=== PATIENT | male | born 1955 | race Caucasian/White ===

== ENCOUNTER 2019-12-26 05:36 | Outpatient (CLI) | payer MEDICARE, MEDICAID ==
[~2019-12-26] VITALS: Ht 167 cm; Wt 78.6 kg
[~2019-12-26 05:36] MED LIST: GUAN2TAB12 PO; HYDR50CA PO; PROP10TA8 PO; RISP1TAB19 PO
[2019-12-26] MEDS ORDERED: RISP0.5T3 PO (11:23)
[2019-12-26] MEDS ORDERED: HYDR-3781 PO (11:23)
[2019-12-26] MEDS ORDERED: LISI40TA PO (11:23)
[2019-12-26] MEDS ORDERED: CARV12.53 PO (11:23)
[2019-12-26] MEDS ORDERED: ATOR20TA66 PO (11:23)
[2019-12-26] MEDS ORDERED: AMLO5TAB9 PO (11:23)
[2019-12-26] MEDS ORDERED: TRAV5DRO OP (11:23)
== END 2019-12-26 14:14 | disposition home or self-care (01) ==
LOC: PREOP 05:36
PROVIDERS: ATTEND Surgery
DX: Z01.818 Encounter for other preprocedural examination (principal)

== ENCOUNTER 2020-01-02 09:23 | Day surgery (SDC) | payer MEDICARE, MEDICAID ==
[~2020-01-02] VITALS: Ht 167 cm; Wt 78.6 kg
[2020-01-02] VITALS (7 sets, daily range): BP systolic 89–131; BP diastolic 50–80
[~2020-01-02 09:23] MED LIST changes: +AMLO5TAB9 PO; +ATOR20TA66 PO; +CARV12.53 PO; +HYDR-3781 PO; +LISI40TA PO; +RISP0.5T3 PO; +TRAV5DRO OP
[2020-01-02] MEDS ORDERED: LACTATED RINGERS 1,000 ML IV ONE (09:24)
[2020-01-02] MEDS ORDERED: LACTATED RINGERS 1,000 ML IV STA (09:37)
--- NOTE | 2020-01-02 09:54 | Progress Note-Pre Operative ---
Pre-Operative Progress Note H&P Reviewed The H&P was reviewed, patient examined and no changes noted. Date Seen by Provider: Jan 02, 2020 Time Seen by Provider: 09:53 Date H&P Reviewed: Jan 02, 2020 Time H&P Reviewed: 09:53 Pre-Operative Diagnosis: History of colon polyps SANTI HERNÁNDEZ DO Jan 02, 2020 09:54
[2020-01-02] MEDS ORDERED: MIDAZOLAM 2 MG/2 ML (VERSED) VIAL ONE (10:00)
[2020-01-02] MEDS ORDERED: PROPOFOL INJECTION 50 ML IV ONE (10:00)
--- NOTE | 2020-01-02 10:49 | Progress Note-Post Operative ---
Post-Operative Progess Note Surgeon (s)/Glass Beveler (s) Surgeon SANTI HERNÁNDEZ DO Glass Beveler: NA Pre-Operative Diagnosis History of colon polyps Post-Operative Diagnosis Cecal mass. Sigmoid and Rectal Polyps Procedure & Operative Findings Date of Procedure 01/02/20 Procedure Performed/Findings Colonoscopy with cold and hot biopsy polypectomy Anesthesia Type per SPECIAL DELIVERY MESSENGER Estimated Blood Loss Estimated blood loss (mL): None Specimens/Packing Specimens Removed Cold biopsies of Cecal Mass x4 .Hot Biopsies of sigmoid and rectal polyps SANTI HERNÁNDEZ DO Jan 02, 2020 10:49
--- NOTE | 2020-01-02 10:55 | Discharge Inst-Simple/Standard ---
Discharge Inst-Standard Patient Instructions/Follow Up Plan of Care/Instructions/FU: Patient will need right colon rescection. Follow up [facility] 2 weeks. Activity as Tolerated: Yes Discharge Diet: Regular Diet SANTI HERNÁNDEZ DO Jan 02, 2020 10:55
--- NOTE | 2020-01-02 15:28 | OPERATIVE REPORT ---
DATE OF SERVICE: 01/02/2020 PREOPERATIVE DIAGNOSIS: History of colon polyps. POSTOPERATIVE DIAGNOSIS: Cecal mass, sigmoid and rectal polyp. PROCEDURE: Colonoscopy with cold biopsies of cecal mass and hot biopsy polypectomy x2. SURGEON: Santi Chang DO ANESTHESIA: Per INTERNAL MEDICINE PHYSICIAN ASSISTANT. ESTIMATED BLOOD LOSS: None. COMPLICATIONS: None. INDICATIONS: The patient is a 64-year-old male with history of colon polyps. He understands risks and benefits and wishes to proceed. Consent was signed and on the chart. DESCRIPTION OF PROCEDURE: The patient was taken to endoscopy suite, placed in left lateral recumbent position. Timeout was performed. Digital rectal exam was performed. There were no palpable polyps, masses or ulcerations. Scope was inserted in the rectum and advanced all the way to cecum with minimal difficulty. Prep was adequate. Scope was slowly retracted back, large cecal mass present. Multiple cold biopsies were obtained. Scope was then slowly retracted back. There were no other polyps, masses or ulcerations within the ascending, transverse and descending colon and sigmoid colon. Polyp was present, which hot biopsy polypectomy was performed. Scope was then continuously retracted back into the rectum where another small polyp was present, which hot biopsy polypectomy was performed. Scope was then continuously retracted back and retroflexed noting no other pathology. Scope was returned to its normal position, slowly withdrawn until completely removed. The patient tolerated procedure well without any complications, taken to recovery room in stable condition. RECOMMENDATIONS: The patient will need a right colon resection. We will await biopsy results though. We may need further imaging prior to surgical intervention. Job ID: [id number] DocumentID: [id number] Dictated Date: 01/02/2020 10:55:02 Paperhanger Contractor Date: 01/02/2020 15:26:54 Dictated By: SANTI CHANG DO
--- NOTE | 2020-01-03 08:03 | Anesthesia-General Post-Op ---
MAC Patient Condition Mental Status/LOC: Same as Preop Cardiovascular: Satisfactory Nausea/Vomiting: Absent Respiratory: Satisfactory Pain: Controlled Complications: Absent Post Op Complications Complications None Follow Up Care/Instructions Patient Instructions None needed. Anesthesiology Discharge Order Discharge Order Patient is doing well, no complaints, stable vital signs, no apparent adverse anesthesia problems. No complications reported per nursing. TOMAS LIND CRNA Jan 03, 2020 08:03
--- OUTSIDE RECORDS SUMMARY | 2020-01-04 10:14 | XMS REPORT ---
Author Author [employer] Organization [employer] Address [address] [address] Care Team Providers Care Link Wire Fabric Machine Operator Name Role Phone MIKE SWANN Unavailable Unavailable EFRAIN, REY Unavailable Unavailable SCOTT, ARIEL Unavailable Unavailable SUMEET, TWAN Unavailable Unavailable SUMEET, TWAN Unavailable TRUE COX Unavailable Unavailable MIKE SWANN Unavailable Unavailable EFRAIN, REY Unavailable MIKE SWANN Unavailable Unavailable SCOTT, ARIEL Unavailable SUMEET, TWAN Unavailable MIKE SWANN Unavailable Unavailable SUMEET, TWAN Unavailable SUMEET, TWAN Unavailable SCOTT, ARIEL Unavailable MIKE SWANN Unavailable Unavailable GLORIA GOLDMAN Unavailable SUMEET, TWAN Unavailable SCOTT, ARIEL Unavailable Migration, Doctor Unavailable Unavailable Migration, Doctor Unavailable Unavailable SCOTT, ARIEL Unavailable Migration, Doctor Unavailable Unavailable Migration, Doctor Unavailable Unavailable SCOTT, ARIEL Unavailable SCOTT, ARIEL Unavailable BREN TAYLOR Unavailable SUMEET, TWAN Unavailable BREN TAYLOR Unavailable SUMEET, TWAN Unavailable JULI CLAROS Unavailable SCOTT ARIEL Unavailable SUMEET, TWAN Unavailable SCOTT, ARIEL Unavailable SUMEET, TWAN Unavailable SCOTT, ARIEL Unavailable SCOTT, ARIEL Unavailable SCOTT, ARIEL Unavailable SUMEETLEONELATWAN Unavailable SUMEETLEONELATWAN S Unavailable Unavailable SCOTT, ARIEL Unavailable SCOTT, ARIEL Unavailable SCOTT, ARIEL Unavailable SCOTT, ARIEL Unavailable SUMEETLEONELA HALEYNDA Unavailable [facility] PCP Allergies The data below is from unstructured sources Substance Reaction Event Type N.K.D.A. Info Not Available Non Drug Allergy Substance Reaction Event Type Date Status N.K.D.A. Unknown Non Kamaljit g Allergy Sep, Unknown Allergen Type Severity Reaction Status Last Updated No Known Drug Allergies Active 11/15/14 No known allergies. Medications Medication Ingredient Drug Dose Dates Status Sig Sig Care Class(es) (Normalized) (Original) Provid er amLODIPine amLODIPine Dihydropyri Active no Amlodipine no 5 mg oral dine information Besylate name tablet (2 Calcium Active 5 (no sources.) Channel ORAL Daily phone) Landon carvedilol carvedilol alpha-Adren Active no Carvedilol no 12.5 mg ergic information Active 12.5 name oral tablet Landon, ORAL Twice A (no (2 beta-Adrene Day phone) sources.) rgic Landon Problems The data below is from unstructured sourcesNo known problems or medical conditions.No problem information available.No problem information available.No known health concerns documented Procedures Procedure Normalized Procedure Procedure Result Performer Facility Date 05-04-2018 Dental prophylaxis no information no name (no phone ) [facility] ([id number]) 02-17-2018 Dental prophylaxis no information no name (no phone ) [facility] ([id number]) 08-09-2018 [facility] visit, estab pt no information no name (no traci ne) [facility] ([id number]) 07-20-2018 [facility]HC visit, estab pt no information no name (no traci ne) [facility] ([id number]) 01-18-2018 [facility]QHC visit, estab pt no information no name (no traci ne) [facility] ([id number]) 05-04-2018 Topical fluoride no information no name (no phone) [facility] varnish [facility] ([id number]) 02-17-2018 Topical fluoride no information no name (no phone) [facility] varnish [facility] ([id number]) Immunizations Normalized Immunization Date Notes Care Provider Facili ty Immunization influenza, 10-02-2019 no information no name [facility] ealth injectable, [facility] quadrivalent, - [facility] contains ([id number]) preservative influenza, 07-20-2018 - no information TWANPARADISE FAY [address] [facility] injectable, 07-20-2018 [place], [place] ([id number]) preservative free influenza, seasonal, 07-20-2018 no information TWAN SUMEET [address] [facility] injectable [facility] (33109) pneumococcal 11-01-2019 no information no name [facility] conjugate vaccine, [facility] 13 valent - [facility] ([id number]) no information 07-20-2018 no information TWAN SUMEET [id number] [facility] ([id number]) Results Test Name Value Interpretation Reference Range Date Time Fa cility (Normalized) (Normalized) (Medline Reference) No panel information on 2019-11-09 Albumin 4.2 g/dL (N) 3.4 - 5.4 g/dL [facility] [Mass/Vol] [facility] ([id number]) Albumin/Globulin 1.6 {ratio} (N) 1 - 2.5 {ratio} Comm [facility] [Mass ratio] [facility] (39023) ALP [Catalytic 114 U/L (N) 44 - 147 U/L [facility] activity/Vol] [facility] (68360) ALT [Catalytic 9 U/L (N) 4 - 40 U/L [facility] ealt activity/Vol] [facility] (98145) AST [Catalytic 10 U/L (N) 10 - 34 U/L [facility] activity/Vol] [facility] (03570) Basophils (Bld) 0.022 10*3/uL (N) 0 - 0.3 10*3/uL [facility] [#/Vol] [facility] (60427) Basophils/100 0.4 % (N) 0.5 - 1 % [facility] WBC (Bld) [facility] (80714) Bilirubin 0.6 mg/dL (N) 0.1 - 1.2 mg/dL [facility] [Mass/Vol] [facility] (31946) Calcium 8.9 mg/dL (N) 8.5 - 10.2 mg/dL [facility] [Mass/Vol] [facility] (39292) Chloride 105 mmol/L (N) 95 - 106 mmol/L [facility] [Moles/Vol] [facility] (45046) Cholesterol 170 mg/dL (N) 180 - 200 mg/dL [facility] [Mass/Vol] [facility] (21434) Cholesterol in 37 mg/dL (L) [facility] h HDL [Mass/Vol] [facility] (02775) Cholesterol in 107 mg/dL (H) 0 - 100 mg/dL [facility] LDL [Mass/Vol] [facility] (57636) Cholesterol non 133 mg/dL (H) [facility] HDL [Mass/Vol] [facility] (06892) Cholesterol.tota 4.6 {ratio} (N) [facility] Hea lth l/Cholesterol in [facility] HDL [Mass ratio] [facility] (42734) CO2 [Moles/Vol] 26 mmol/L (N) 23 - 29 mmol/L [facility] (51829) Creatinine 1.60 mg/dL (H) [facility] h [Mass/Vol] [facility] (34226) Eosinophils 0.072 10*3/uL (N) 0.05 - 0.5 Community [facility]th (Bld) [#/Vol] 10*3/uL [facility] (24013) Eosinophils/100 1.3 % (N) 1 - 4 % [facility] Health WBC (Bld) [facility] (58697) Erythrocyte 13.0 % (N) 11.6 - 14.6 % [facility] ealth distribution [facility] width (RBC) [facility] [Ratio] (43281) GFR/1.73 sq M 52 (L) 90 - 120 [facility] He alth predicted among mL/min/{1.73_m2} mL/min/{1.73_m2} [facility] MDRD [facility] (S/P/Bld) [Vol (67317) rate/Area] GFR/1.73 sq 45 (L) 90 - 120 [facility] th M.predicted MDRD mL/min/{1.73_m2} mL/min/{1.73_m2} [facility] (S/P/Bld) [Vol [facility] rate/Area] (10258) Globulin (S) 2.6 g/dL (N) 2 - 3.5 g/dL [facility] [Mass/Vol] [facility] (08334) Glucose 142 mg/dL (H) 60 - 125 mg/dL [facility] [Mass/Vol] [facility] (93152) Hematocrit (Bld) 47.1 % (N) 36.1 - 50.3 % [facility] [Volume [facility]] [facility] (60912) Hemoglobin (Bld) 15.1 g/dL (N) 12.1 - 17.2 g/dL [facility] [Mass/Vol] [facility] (57735) Lymphocytes 1.1 10*3/uL (N) 0.9 - 2.9 [facility] (Bld) [#/Vol] 10*3/uL [facility] (21631) Lymphocytes/100 20.0 % (N) 20 - 40 % [facility] WBC (Bld) [facility] (18683) MCH (RBC) 27.6 pg (N) 27 - 31 pg [facility] [Entitic mass] [facility] (98598) MCHC (RBC) 32.1 g/dL (N) 32 - 36 g/dL [facility] [Mass/Vol] [facility] (05726) MCV (RBC) 85.9 fL (N) 80 - 100 fL [facility] [Entitic vol] [facility] (55783) Monocytes (Bld) 0.495 10*3/uL (N) 0.3 - 0.9 [facility] [#/Vol] 10*3/uL [facility] (37304) Monocytes/100 9.0 % (N) 2 - 8 % [facility] WBC (Bld) [facility] (67351) Neutrophils 3.812 10*3/uL (N) 1.7 - 7 10*3/uL [facility] (Bld) [#/Vol] [facility] (54097) Neutrophils/100 69.3 % (N) 40 - 60 % [facility] WBC (Bld) [facility] (84903) Platelet mean 11.3 fL (N) 7.2 - 11.7 fL [facility] volume (Bld) [facility] [Entitic vol] [facility] (52206) Platelets (Bld) 155 10*3/uL (N) 150 - 450 [facility] [#/Vol] 10*3/uL [facility] (24619) Potassium 4.7 mmol/L (N) 3.7 - 5.2 mmol/L [facility] [Moles/Vol] [facility] (25969) Prostate 0.5 ng/mL (N) 0 - 4 ng/mL [facility] Hea lt specific Ag [facility] [Mass/Vol] [facility] (81055) Protein 6.8 g/dL (N) 6.4 - 8.3 g/dL [facility] [Mass/Vol] [facility] (11362) RBC (Bld) 5.48 10*6/uL (N) 4.2 - 6.1 [facility] [#/Vol] 10*6/uL [facility] (65073) Sodium 137 mmol/L (N) 135 - 145 mmol/L [facility] [Moles/Vol] [facility] (85041) Triglyceride 148 mg/dL (N) 0 - 150 mg/dL [facility] [Mass/Vol] [facility] (62596) Urea nitrogen 20 mg/dL (N) 7 - 20 mg/dL [facility] [Mass/Vol] [facility] (70113) Urea 13 mg/mg (N) 6 - 22 mg/mg Community [facility] nitrogen/Creatin [facility] [Mass ratio] [facility] (47931) WBC (Bld) 5.5 10*3/uL (N) 3.5 - 10.5 Community [facility] [#/Vol] 10*3/uL [facility] (82581) Vital Signs Vital Sign Value Interpretation Reference Date Time Care Prov ider Facility (Normalized) (Normalized) Range BMI (Body Mass 28.86 kg/m2 (no code) 15 - 25 kg/m2 12-13-2018 [facility] Community Index) 14:40-[address] [place] [address] ([id number]) BMI (Body Mass 28.51 kg/m2 (no code) 15 - 25 kg/m2 08-09-2018 JUANITO ERIBERTO Community Index) 17:20-[address] ([address]) BMI (Body Mass 28.83 kg/m2 (no code) 15 - 25 kg/m2 07-20-2018 B CROW SUMEET Community Index) 17:00-[address] [place] [address] (27005) BMI (Body Mass 28 kg/m2 (no code) 15 - 25 kg/m2 01-18-2018 MIKEIN DA Community Index) 17:00-[address] (23625) Body 98.6 [degF] (no code) 97.8 - 99.0 07-20-2018 TWAN LEONELA HALEY Community Temperature [degF] 17:00-[address] [place] [address] ([id number]) Body weight 86.09 kg (no code) kg 12-13-2018 ARIEL Com munity 14:40-[address] [place] [address] ([id number]) Height 172.72 cm (no code) cm 12-13-2018 ARIEL Commu nity 14:40-[address] [place] [address] (09004) Height 172.72 cm (no code) cm 08-09-2018 ARIEL Commu nity 17:20-[address] (03460) Height 172.72 cm (no code) cm 07-20-2018 TWAN FAY [facility] 17:00-[address] [place] [address] (34124) Height 172.72 cm (no code) cm 01-18-2018 ARIEL Ramos nitharriet 17:00-[address] (19608) Weight 85.05 kg (no code) kg 08-09-2018 ARIEL Soler ity 17:20-[address] [place] [address] ([id number]) Weight 86 kg (no code) kg 07-20-2018 TWAN FAY [facility] 17:00-[address] [place] [address] ([id number]) Weight 83.55 kg (no code) kg 01-18-2018 ARIEL [facility] ity 17:00-[address] (94959) Interventions No Information Plan of Treatment Normalized Care Care Detail Care Activity Date Care Provider F acility Activity (PSY-FU-20) [facility] 12-13-2018 - TWANPARADISE MEIER[address] Psychiatry F/U 20 [facility] 12-13-2018 - [facility] 12-13-2018 [place] ([id number]) Patient Education no information no information [facility] [place] [address] [place] [address] ([id number]) Patient referral no information no information [facility] [place] [address] [place] [address] ([id number]) Goals Patient Goal Desired Goal no information no information Social History Normalized Code Original Code Date Value Tobacco smoking status Tobacco smoking status 12-26-2019 - Ex- smoker (finding) AZIS AZIS no information no information 12-26-2019 Denies Use no information no information 12-26-2019 No no information no information 12-26-2019 Former Smoker Sex Assigned At Sex Assigned At 1955 - 09-25 Male Functional Status The data below is from unstructured sourcesNo functional status results.No Functional Status information availableNo Functional Status information availableNo Functional Status information availableNo Functional Status information available Mental Status The data below is from unstructured sourcesNo Mental Status Information AvailableNo Mental Status Information AvailableNo Mental Status Information Available Encounters Encounter Normalized Encounter Encounter Diagnosis Care Provi tiffany Organization Date Type 07-19-2018 (PSY-FU-20) Psychiatry no information [facility]EL TONEY [facility] min phone) (no phone) 07-19-2018 - 07-19-2018 01-02-2020 Admission to day no information (no phone) [facility] (no phone) 01-02-2020 01-18-2018 Patient encounter no information no name (no phone) no organization name (no phone) 12-08-2017 Patient encounter no information no name (no phone) no organization name (no phone) 10-04-2017 Patient encounter no information no name (no phone) no organization name (no phone) Patient encounter no information no name (no phone) no organ ization name (no phone) 12-26-2019 Patient encounter no information (no phone) [facility] (no phone) 12-26-2019 11-09-2019 Patient encounter no information no name (no phone) no organization name procedure (no phone) 10-03-2019 Patient encounter no information no name (no phone) no organization name procedure (no phone) 10-02-2019 Patient encounter no information no name (no phone) no organization name procedure (no phone) 03-21-2019 Patient encounter no information no name (no phone) no organization name procedure (no phone) 01-10-2019 Patient encounter no information no name (no phone) no organization name procedure (no phone) 12-13-2018 Patient encounter no information no name (no phone) no organization name procedure (no phone) 11-15-2018 Patient encounter no information no name (no phone) no organization name procedure (no phone) 11-08-2018 Patient encounter no information no name (no phone) no organization name procedure (no phone) 11-07-2018 Patient encounter no information no name (no phone) no organization name procedure (no phone) 11-15-2014 Patient encounter no information no name (no phone) no organization name procedure (no phone) no information Encounter for dental no name (no phone) no or ganization name examination and (no phone) cleaning without abnormal findings Medical Equipment The data below is from unstructured sourcesNo Medical Equipment Information availableNo Medical Equipment Information availableNo Medical Equipment Information available Payers Normalized Payer Value Unknown no information ([id number]) Medicare no information ([id number]) Evaluation note Note Type Note Facility Evaluation No Assessments Information Available A scension note [facility] ([id number]) History general Narrative - Reported Note Type Note Facility History general Narrative - Reported Type Medical hyperlipidemia History Medical hypertension History Medical mood disorder History Medical mild mental retardation History Medical insomnia History Medical anxiety History Medical Asperger's History Surgical laser eye surgery History [facility] ([id number]) Hospital Discharge instructions Note Type Note Facility Hospital Additional Instructions [place] Discharge Patient Instructions Via instructio Physician Instructions [facility] Plan of Care/Instructions/FU: Hospital Patient will need right colon rescection. Follow up D unbar 2 weeks. ([id number]) Activity as Tolerated: Yes Discharge Diet: Regular Diet Care Plan Patient Instructions:: Patient will nee d right colon rescection. Follow up Chang 2 weeks. Summary Purpose eClinicalWorks SubmissioneClinicalWorks SubmissioneClinicalWorks SubmissioneClinicalWorks SubmissioneClinicalWorks SubmissioneClinicalWorks SubmissioneClinicalWorks SubmissioneClinicalWorks SubmissioneClinicalWorks SubmissioneClinicalWorks SubmissioneClinicalWorks SubmissioneClinicalWorks SubmissioneClinicalWorks Submission Advance Directives Directive Response Recor ded Date/Time Advance Directives No 12:54pm Health Care Power of Trimmer Machine No 11/15/14 12:54pm Organ Donor No 11/15/14 12:54pm Resuscitation Status Full Code 11/15/14 12:54pm Advance Directive Response Recorded Date/Time Advance Directives No [facility] 2019 11:18am Health Care Power of Trimmer Machine No December 26, 2019 11:18am Organ Donor No December 11:18am Resuscitation Status Full Code December 26, 2019 11:18am Advance Directive Response Recorded Date/Time Advance Directives No [facility] 2019 9:42am Health Care Power of Trimmer Machine No January 02, 2020 9:42am Organ Donor No December 9:42am Resuscitation Status Full Code January 02, 2020 9:42am Discharge Instructions No hospital discharge instructions. Additional Source Comments This clinical document has been generated using [employer] software that has been certified by the Office of the National Coordinator for Health Information Technology (ONC 15.99.04.3023.Diam.31.00.0.227315) and the National Committee for Oil Separator (NCQA, as an eMeasure certified technology). FOR RECORDS PERTAINING TO PATIENTS WHO ARE OR HAVE BEEN ENROLLED IN A CHEMICAL D EPENDENCY/SUBSTANCE ABUSE PROGRAM, SOME INFORMATION MAY BE OMITTED. This clinica l summary was aggregated from multiple sources. Caution should be exercised in using it in the provision of clinical care. This summary normalizes information from multiple sources, and as a consequence, information in this document may ma terially change the coding, format and clinical context of patient data. In sara tion, data may be omitted in some cases. CLINICAL DECISIONS SHOULD BE BASED ON T HE PRIMARY CLINICAL RECORDS. [employer] provides no warranty or guara ntee of the accuracy or completeness of information in this document.The followi ng information is based on time limited clinical information UNRECOGNIZED CONTENT PROVIDED BELOW FOR UNRECOGNIZED SECTION MEDICAL (GENERAL) HISTORY Type Description Date Medical History hyperlipidemia Medical History hypertension Medical History mood disorder Medical History mild mental retardation Medical History insomnia Medical History anxiety Medical History Asperger's Surgical History laser eye surgery UNRECOGNIZED CONTENT PROVIDED BELOW FOR UNRECOGNIZED SECTION REASON FOR VISIT Blood Pressure Pt in for follow up on blood pressure, [employer], [facility] f/u-AB/Stormy STEELE nxiety / intellectual disability / history of anger/[id number] f/ u- jerel steele, AIMS , Mood / [id number]
--- OUTSIDE RECORDS SUMMARY | 2020-01-04 10:14 | XMS REPORT ---
Author Author Anton FAY Organization [facility] Address [address] [place] [address] Care Team Providers Care Flarer Name Role Phone TWAN FAY Unavailable PROBLEMS Type Condition ICD9-CM Code YZG36-PH Code Onset Dates Condition S tatus SNOMED Code Problem Essential hypertension I10 Active 06418861 Problem Anxiety F41.9 Active 02692391 Problem Hyperlipidemia, unspecified hyperlipidemia E78.5 Active 25038868 Problem CKD (chronic kidney disease), stage III N18.3 Active 882654534 Problem History of colon polyps Z86.010 Active 374331168 Problem Nicotine abuse Z72.0 Active 00654 008 Problem Developmental disorder F89 Active 3292857 Problem Urinary incontinence, unspecified type R32 Active 513414347 Problem Hyperglycemia R73.9 Active 618149 07 ALLERGIES No Information ENCOUNTERS Encounter Location Date Diagnosis [facility] [address] [address] 14 Jan, 2020 [facility] [address] [facility] [id number] [place] [address] Oct, Oral health maintenance stat us requiring routine preventive dental care K08.9 [facility] [address] [address] 16 Oct, 2019 Essential hypertension I10 ; Hyperlipide iqra, unspecified hyperlipidemia E78.5 ; Prostate cancer screening Z12.5 and Screening PSA (prostate specific antigen) Z12.5 [facility] [address] [place] [address] 09 Oct, 2019 History of test for hearing Z92.89 [facility] [address] [address] 09 Oct, 2019 [facility] [address] [address] 08 Oct, 2019 Essential hypertension I10 ; Hyperlipide iqra, unspecified hyperlipidemia E78.5 ; Prostate cancer screening Z12.5 ; History of tobacco abuse Z87.891 ; History of colon polyps Z86.010 and Encounter for immunization Z23 [facility] [id number] [place] [address] 10 Sep, 2019 Anxiety F41.9 and Developmental disorder F89 [place] [address] [address] 09 Sep, 2019 Essential hypertension I10 ; History of tobacco abuse Z87.891 ; CKD (chronic kidney disease), stage III N18.3 and Encounter for immunization Z23 [place] [id number] [place] [address] Aug, [facility] [id number] [place] [address] Jul, Dental examination Z01.20 an d Oral health maintenance status requiring routine preventive dental care K08.9 [place] [id number] [place] [address] May, Anxiety F41.9 ; Developmental disorder F 89 and Nicotine abuse Z72.0 [place] [id number] [place] [address] Apr, [place] [address] [address] February, [place] [address] [address] February, Anxiety F41.9 ; Developmental disorder F 89 and Nicotine abuse Z72.0 [place] [address] [address] February, Essential hypertension I10 and Impacted cerumen, bilateral H61.23 [facility] [address] [facility] [id number] [place] [id number] Dec, Oral health maintenance status requiring routine preventive dental care K08.9 [place] [address] [address] [place] [address] Dec, Developmental disorder F89 and Anxiety F 41.9 [facility] [address] [address] Nov, [facility] [address] [address] Nov, Essential hypertension I10 [place] [address] [address] Nov, Essential hypertension I10 [place] [address] [address] Nov, Developmental disorder F89 and Anxiety F 41.9 [place] [address] [address] Nov, [place] [address] [address] Nov, Essential hypertension I10 [place] [address] [address] Oct, Elevated blood sugar R73.09 [place] [address] [address] Oct, Elevated blood sugar R73.09 [place] [address] [address] 15 Oct, 2018 Encounter for Medicare annual wellness e xam Z00.00 ; Screening PSA (prostate specific antigen) Z12.5 ; Essential hypertension I10 ; Hyperlipidemia, unspecified hyperlipidemia E78.5 ; Nicotine abuse Z72.0 ; Anxiety F41.9 ; Bilateral impacted cerumen H61.23 and Developmental disorder F89 [place] [address] [address] 14 Oct, 2018 Encounter for Medicare annual wellness e xam Z00.00 ; Essential hypertension I10 ; Hyperlipidemia, unspecified hyperlipidemia E78.5 ; Nicotine abuse Z72.0 ; Anxiety F41.9 ; Developmental disorder F89 and Screening PSA (prostate specific antigen) Z12.5 [place] [address] [id number] Sep, Dental examination Z01.20 [place] [address] [id number] 16 Jul, 2018 Developmental disorder F89 and Anxiety F 41.9 [place] [address] [address] Jun, Essential hypertension I10 ; Nicotine ab use Z72.0 and Encounter for immunization Z23 [facility] [address] [id number] Apr, Dental examination Z01.20 [facility] [address] [id number] Jan, Dental examination Z01.20 [place] [address] [address] Dec, Developmental disorder F89 and Anxiety F 41.[address] [address] 14 Nov, 2017 Essential hypertension I10 ; Hyperlipide iqra, unspecified hyperlipidemia E78.5 ; Nicotine abuse Z72.0 and Bilateral impacted cerumen H61.[address] [address] Oct, [facility] [address] [id number] Sep, Encounter for dental exam and cleaning w /o abnormal findings Z01.20 [place] [address] [address] 11 Sep, 2017 Medicare annual wellness visit, initial Z00.00 and Encounter for immunization Z23 [address] [address] 28 Aug, 2017 Encounter for immunization Z23 ; Develop mental disorder F89 and Anxiety F41.9 [facility] [address] [id number] 13 Jun, 2017 Encounter for dental examination and donte aning without abnormal findings Z01.20 [facility] [address] [address] Apr, Anxiety F41.9 and Developmental disorder F89 [address] [address] Apr, Essential hypertension I10 and Nicotine abuse Z72.0 [facility] [address] [facility] [address] [id number] [id number] Mar, Dental examination Z01.20 [facility] [address] [id number] Mar, Encounter for dental examination and donte aning without abnormal findings Z01.20 [place] [address] [address] Jan, [address] [address] Dec, Developmental disorder F89 and Anxiety F 41.9 [facility] [address] [id number] Dec, Encounter for dental examination and donte aning without abnormal findings Z01.[address] [address] Sep, Encounter for immunization Z23 [address] [address] Sep, Prostate cancer screening Z12.5 and Hype rlipidemia, unspecified hyperlipidemia E78.[address] [address] Sep, Annual physical exam Z00.00 ; Encounter for immunization Z23 ; Essential hypertension I10 ; Hyperlipidemia, unspecified hyperlipidemia E78.5 ; Anxiety F41.9 ; Prostate cancer screening Z12.5 and Nicotine abuse Z72.[address] [address] Aug, [address] [address] Jul, Urinary incontinence, unspecified type R 32 [facility] [address] [id number] Jul, Dental examination Z01.20 [facility] [address] [address] Jul, Urinary incontinence, unspecified type R 32 [facility] [address] [address] Jul, Anxiety F41.9 and Developmental disorder F89 [facility] [address] [id number] May, Dental examination Z01.[address] [address] Apr, Encounter for dental examination Z01.20 [facility] [address] [id number] Apr, Encounter for dental examination and donte aning without abnormal findings Z01.20 [facility] [address] [address] Mar, Developmental disorder F89 and Anxiety F 41.9 [facility] [address] [id number] February, Dental examination Z01.20 [facility] [address] [address] February, Essential hypertension I10 [facility] [address] [address] February, Arthralgia M25.50 [facility] [address] [id number] Jan, Encounter for dental examination and donte aning without abnormal findings Z01.20 [facility] [address] [id number] Dec, [facility] [address] [address] Nov, Anxiety F41.9 and Developmental disorder F89 [facility] [address] [address] 17 Nov, 2015 [facility] [address] [address] Nov, [facility] [address] [address] Oct, Hyperlipidemia, unspecified hyperlipidem ia E78.5 [place] [address] [address] Oct, Essential hypertension I10 ; Hyperlipide iqra, unspecified hyperlipidemia E78.5 and Prostate cancer screening Z12.5 [place] [address] [address] Oct, Essential hypertension I10 ; Hyperlipide iqra, unspecified hyperlipidemia E78.5 ; Nicotine abuse Z72.0 ; Anxiety F41.9 ; Developmental disorder F89 and Prostate cancer screening Z12.5 [place] [address] [address] Aug, Anxiety F41.9 and Developmental disorder F89 [place] [address] [address] Aug, Essential hypertension I10 and Encounter for immunization Z23 [place] [address] [address] Aug, Prostate cancer screening Z12.5 [place] [address] [address] Jun, Hypertension 401.9 [place] [address] [address] Jun, [place] [address] [address] May, Impulse control disorder, unspecified 31 2.30 ; Generalized anxiety disorder 300.02 ; Other specified pervasive developmental disorders, 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 and 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 [place] [address] [address] Mar, Hypertension 401.9 [facility] [address] [id number] [place] [id number] 15 Mar, 2015 Dental examination V72.2 [facility] [id number] [place] [address] February, Hypertension 401.9 and Hyperlipidemia 27 2.4 [facility] [id number] [place] [address] February, [facility] [address] [place] [address] February, Generalized anxiety disorder 300.02 ; Im pulse control disorder 312.30 ; 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 and Benign essential HTN 401.1 [facility] [id number] [place] [address] Jan, [facility] [address] [address] Jan, [facility] [id number] [place] [address] Dec, [facility] [id number] [place] [address] 18 Dec, 2014 [facility] [id number] [place] [address] Dec, [facility] [id number] [place] [address] Dec, [facility] [id number] [place] [address] 16 Dec, 2014 [facility] [id number] [place] [address] Dec, [facility] [id number] [place] [address] Dec, [facility] [id number] [place] [address] Dec, [facility] [id number] [place] [address] Nov, [facility] [address] [id number] [place] [address] Nov, 2014 [facility] [address] [id number] [place] [address] Nov, 2014 [facility] [address] [id number] [place] [address] Nov, 2014 [facility] [address] [id number] [place] [address] Nov, 2014 [facility] [address] [id number] [place] [address] Nov, 2014 [facility] [address] [id number] [place] [address] Nov, 2014 [facility] [address] [id number] [place] [address] Nov, [facility] [id number] [place] [address] Oct, [facility] [address] [id number] [place] [address] Oct, [facility] [id number] [place] [address] Oct, [facility] [address] [id number] [place] [address] Oct, [facility] [id number] [place] [address] Oct, [facility] [address] [id number] [place] [address] Oct, [facility] [address] [id number] [place] [address] Sep, [facility] [address] [id number] [place] [address] Sep, [facility] [address] [id number] [place] [address] Sep, [facility] [address] [id number] [place] [address] Sep, [facility] [address] [facility] [id number] [facility] [address] Sep, [facility] [address] [facility] [id number] [place] [address] Sep, [facility] [address] [id number] [place] [address] Aug, [facility] [address] [id number] [place] [address] Aug, [facility] [address] [facility] [id number] [place] [address] Aug, [facility] [address] [id number] [place] [address] Aug, [facility] [address] [id number] [place] [address] Jul, [facility] [address] [id number] [place] [address] Jul, [facility] [address] [id number] [place] [address] May, [facility] [address] [id number] [place] [address] May, [facility] [address] [id number] [place] [address] Apr, [facility] [address] [id number] [place] [address] Apr, [facility] [address] [id number] [place] [address] Mar, [facility] [address] [id number] [place] [address] Mar, [facility] [address] [id number] [place] [address] Mar, [facility] [address] [id number] [place] [address] Mar, [facility] [address] [id number] [place] [address] February, [facility] [address] [id number] [place] [address] February, [facility] [address] [id number] [place] [address] Jan, [facility] [address] [id number] [place] [address] Jan, [facility] [address] [id number] [place] [address] Oct, [facility] [address] [id number] [place] [address] Oct, [facility] [address] [id number] [place] [address] Oct, [facility] [address] [id number] [place] [address] Oct, [facility] [address] [id number] [place] [address] Oct, [facility] [address] [id number] [place] [address] Oct, [facility] [address] [id number] [place] [address] Oct, [facility] [address] [id number] [place] [address] Oct, [facility] [address] [id number] [place] [address] Oct, [facility] [address] [id number] [place] [address] Dec, [facility] [address] [id number] [place] [address] Sep, [facility] [address] [id number] [place] [address] Sep, [facility] [address] [id number] [place] [address] May, [facility] [address] [id number] [place] [address] Apr, [facility] [id number] [place] [address] Apr, [facility] [address] [id number] [place] [address] Apr, [facility] [address] [id number] [place] [id number] February, [facility] [id number] [place] [address] Jan, [facility] [id number] [place] [address] Dec, [facility] [id number] [place] [address] Sep, [facility] [id number] [place] [address] Sep, [facility] [id number] [place] [address] Aug, [facility] [id number] [place] [address] Aug, [facility] [id number] [place] [address] Jul, [facility] [id number] [place] [address] Mar, [facility] [id number] [place] [address] Mar, [facility] [id number] [place] [address] Mar, IMMUNIZATIONS No Known Immunizations SOCIAL HISTORY Never Assessed REASON FOR VISIT PLAN OF CARE VITAL SIGNS MEDICATIONS Unknown Medications RESULTS No Results PROCEDURES No Known procedures INSTRUCTIONS MEDICATIONS ADMINISTERED No Known Medications MEDICAL (GENERAL) HISTORY Type Description Date Medical History hyperlipidemia Medical History hypertension Medical History mood disorder Medical History mild mental retardation Medical History insomnia Medical History anxiety Medical History Asperger's Surgical History laser eye surgery
--- OUTSIDE RECORDS SUMMARY | 2020-01-04 10:15 | XMS REPORT ---
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 Name Role Phone SCOTT ARIEL Unavailable PROBLEMS Type Condition ICD9-CM Code SDQ14-PH Code Onset Dates Condition S tatus SNOMED Code Problem Essential hypertension I10 Active 11307387 Problem Anxiety F41.9 Active 84114087 Problem Hyperlipidemia, unspecified hyperlipidemia E78.5 Active 98738762 Problem CKD (chronic kidney disease), stage III N18.3 Active 493387793 Problem History of colon polyps Z86.010 Active 484984899 Problem Nicotine abuse Z72.0 Active 17606 008 Problem Developmental disorder F89 Active 3162098 Problem Urinary incontinence, unspecified type R32 Active 253120738 Problem Hyperglycemia R73.9 Active 996469 07 ALLERGIES No Information ENCOUNTERS Encounter Location Date Diagnosis [facility] [address] [address] 14 Jan, 2020 OUTREACH [facility] [address] [facility] [address] [id number] [address] Oct, Oral health maintenance stat us requiring routine preventive dental care K08.9 [facility] [address] [address] 16 Oct, 2019 Essential hypertension I10 ; Hyperlipide iqra, unspecified hyperlipidemia E78.5 ; Prostate cancer screening Z12.5 and Screening PSA (prostate specific antigen) Z12.5 [facility] [address] [address] 09 Oct, 2019 History of test for hearing Z92.89 [facility] [address] [address] 09 Oct, 2019 [facility] [address] [address] Oct, Essential hypertension I10 ; Hyperlipide iqra, unspecified hyperlipidemia E78.5 ; Prostate cancer screening Z12.5 ; History of tobacco abuse Z87.891 ; History of colon polyps Z86.010 and Encounter for immunization Z23 [facility] [address] [address] 10 Sep, 2019 Anxiety F41.9 and Developmental disorder F89 [place] [address] [address] 09 Sep, 2019 Essential hypertension I10 ; History of tobacco abuse Z87.891 ; CKD (chronic kidney disease), stage III N18.3 and Encounter for immunization Z23 [place] [address] [address] Aug, OUTREACH [facility] [address] [place] [address] [id number] [place] [address] Jul, Dental examination Z01.20 an d Oral health maintenance status requiring routine preventive dental care K08.9 [place] [address] [address] May, Anxiety F41.9 ; Developmental disorder F 89 and Nicotine abuse Z72.0 [place] [address] [address] Apr, [place] [address] [address] February, [place] [address] [address] February, Anxiety F41.9 ; Developmental disorder F 89 and Nicotine abuse Z72.0 [place] [address] [address] February, Essential hypertension I10 and Impacted cerumen, bilateral H61.23 [facility] [address] [facility] [id number] [place] [id number] Dec, Oral health maintenance status requiring routine preventive dental care K08.9 [place] [address] [address] Dec, Developmental disorder F89 and Anxiety F 41.9 [facility] [address] [address] Nov, [facility] [address] [address] Nov, Essential hypertension I10 [facility] [address] [address] Nov, Essential hypertension I10 [facility] [address] [address] Nov, Developmental disorder F89 and Anxiety F 41.9 [place] [address] [address] Nov, [facility] [address] [address] Nov, Essential hypertension I10 [place] [address] [address] Oct, Elevated blood sugar R73.09 [place] [address] [address] Oct, Elevated blood sugar R73.09 [place] [address] [address] Oct, Encounter for Medicare annual wellness e xam Z00.00 ; Screening PSA (prostate specific antigen) Z12.5 ; Essential hypertension I10 ; Hyperlipidemia, unspecified hyperlipidemia E78.5 ; Nicotine abuse Z72.0 ; Anxiety F41.9 ; Bilateral impacted cerumen H61.23 and Developmental disorder F89 [facility] [address] [address] Oct, Encounter for Medicare annual wellness e xam Z00.00 ; Essential hypertension I10 ; Hyperlipidemia, unspecified hyperlipidemia E78.5 ; Nicotine abuse Z72.0 ; Anxiety F41.9 ; Developmental disorder F89 and Screening PSA (prostate specific antigen) Z12.5 [facility] [address] [id number] Sep, Dental examination Z01.20 [place] [address] [place] [id number] 16 Jul, 2018 Developmental disorder F89 and Anxiety F 41.9 [place] [address] [address] Jun, Essential hypertension I10 ; Nicotine ab use Z72.0 and Encounter for immunization Z23 [facility] [address] [id number] Apr, Dental examination Z01.20 [facility] [address] [id number] Jan, Dental examination Z01.20 [place] [address] [address] Dec, Developmental disorder F89 and Anxiety F 41.[address] [address] 14 Nov, 2017 Essential hypertension I10 ; Hyperlipide iqra, unspecified hyperlipidemia E78.5 ; Nicotine abuse Z72.0 and Bilateral impacted cerumen H61.23 [place] [address] [address] Oct, [facility] [address] [id number] Sep, Encounter for dental exam and cleaning w /o abnormal findings Z01.20 [place] [address] [address] Sep, Medicare annual wellness visit, initial Z00.00 and Encounter for immunization Z23 [address] [address] Aug, Encounter for immunization Z23 ; Develop mental disorder F89 and Anxiety F41.9 [facility] [address] [id number] 13 Jun, 2017 Encounter for dental examination and donte aning without abnormal findings Z01.20 [place] [address] [address] Apr, Anxiety F41.9 and Developmental disorder F89 [address] [address] Apr, Essential hypertension I10 and Nicotine abuse Z72.0 [facility] [address] [facility] [address] [id number] [place] [id number] Mar, Dental examination Z01.20 [facility] [address] [id number] Mar, Encounter for dental examination and donte aning without abnormal findings Z01.[address] [address] Jan, [address] [address] Dec, Developmental disorder F89 and Anxiety F 41.9 [facility] [address] [id number] Dec, Encounter for dental examination and donte aning without abnormal findings Z01.[address] [address] Sep, Encounter for immunization Z23 [address] [address] 08 Sep, 2016 Prostate cancer screening Z12.5 and Hype rlipidemia, unspecified hyperlipidemia E78.[address] [address] Sep, Annual physical exam Z00.00 ; Encounter for immunization Z23 ; Essential hypertension I10 ; Hyperlipidemia, unspecified hyperlipidemia E78.5 ; Anxiety F41.9 ; Prostate cancer screening Z12.5 and Nicotine abuse Z72.[address] [address] Aug, [address] [address] Jul, Urinary incontinence, unspecified type R 32 [facility] [address] [id number] Jul, Dental examination Z01.20 [facility] [address] [place] [id number] Jul, Urinary incontinence, unspecified type R 32 [facility] [address] [address] Jul, Anxiety F41.9 and Developmental disorder F89 [facility] [address] [id number] May, Dental examination Z01.20 [place] [id number] [facility] [id number] Apr, Encounter for dental examination Z01.20 [facility] [address] [id number] Apr, Encounter for dental examination and donte aning without abnormal findings Z01.20 [facility] [address] [place] [address] Mar, Developmental disorder F89 and Anxiety F 41.9 [facility] [address] [id number] February, Dental examination Z01.20 [facility] [address] [place] [id number] February, Essential hypertension I10 [facility] [address] [place] [address] February, Arthralgia M25.50 [facility] [address] [id number] Jan, Encounter for dental examination and donte aning without abnormal findings Z01.20 [facility] [address] [place] [id number] Dec, [facility] [address] [place] [id number] Nov, Anxiety F41.9 and Developmental disorder F89 [facility] [address] [address] 17 Nov, 2015 [facility] [address] [address] Nov, [facility] [address] [address] Oct, Hyperlipidemia, unspecified hyperlipidem ia E78.5 [facility] [address] [address] Oct, Essential hypertension I10 ; Hyperlipide iqra, unspecified hyperlipidemia E78.5 and Prostate cancer screening Z12.5 [place] [address] [address] Oct, Essential hypertension I10 ; Hyperlipide iqra, unspecified hyperlipidemia E78.5 ; Nicotine abuse Z72.0 ; Anxiety F41.9 ; Developmental disorder F89 and Prostate cancer screening Z12.5 [place] [address] [address] Aug, Anxiety F41.9 and Developmental disorder F89 [place] [address] [address] Aug, Essential hypertension I10 and Encounter for immunization Z23 [place] [address] [address] Aug, Prostate cancer screening Z12.5 [place] [address] [address] Jun, Hypertension 401.9 [facility] [address] [address] Jun, [facility] [address] [address] May, Impulse control disorder, unspecified 31 2.30 ; Generalized anxiety disorder 300.02 ; Other specified pervasive developmental disorders, 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 and 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 [place] [address] [address] Mar, Hypertension 401.9 [facility] [address] [facility] [place] [id number] 15 Mar, 2015 Dental examination V72.2 [facility] [address] [place] [id number] [place] [address] February, Hypertension 401.9 and Hyperlipidemia 27 2.4 [facility] [address] [place] [id number] [place] [address] February, [facility] [address] [place] [id number] [place] [address] February, Generalized anxiety disorder 300.02 ; Im pulse control disorder 312.30 ; 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 and Benign essential HTN 401.1 [facility] [address] [place] [id number] [place] [address] Jan, [facility] [address] [place] [id number] [place] [address] Jan, [facility] [address] [place] [id number] [place] [address] 18 Dec, 2014 [facility] [address] [place] [id number] [place] [address] 18 Dec, 2014 [facility] [address] [place] [id number] [place] [address] 17 Dec, 2014 [facility] [address] [place] [id number] [place] [address] 17 Dec, 2014 [facility] [address] [place] [id number] [place] [address] 16 Dec, 2014 [facility] [address] [place] [id number] [place] [address] 16 Dec, 2014 [facility] [address] [place] [id number] [place] [address] Dec, [facility] [address] [place] [address] [id number] [place] [address] 09 Dec, 2014 [facility] [address] [place] [id number] [place] [address] Nov, [facility] [address] [id number] [place] [address] 20 Nov, 2014 [facility] [address] [id number] [place] [address] Nov, [facility] [address] [id number] [place] [address] Nov, 2014 [facility] [address] [id number] [place] [address] Nov, 2014 [facility] [address] [id number] [place] [address] Nov, [facility] [address] [id number] [place] [address] Nov, [facility] [address] [id number] [place] [address] Nov, [facility] [address] [id number] [place] [address] Oct, [facility] [address] [id number] [place] [address] Oct, [facility] [address] [id number] [place] [address] Oct, [facility] [address] [id number] [place] [address] Oct, [facility] [address] [id number] [place] [address] Oct, [facility] [address] [id number] [place] [address] Oct, [facility] [address] [id number] [place] [address] Sep, [facility] [address] [id number] [place] [address] Sep, [facility] [address] [id number] [place] [address] Sep, [facility] [address] [id number] [place] [address] Sep, [facility] [address] [facility] [id number] [place] [address] Sep, [facility] [address] [facility] [id number] [place] [address] Sep, [facility] [address] [id number] [place] [address] Aug, [facility] [address] [id number] [place] [address] Aug, [facility] [address] [facility] [id number] [place] [address] Aug, [facility] [address] [id number] [place] [address] Aug, [facility] [address] [id number] [place] [address] Jul, [facility] [address] [id number] [place] [address] Jul, [facility] [address] [id number] [place] [address] May, [facility] [address] [id number] [place] [address] May, [facility] [address] [id number] [place] [address] Apr, [facility] [address] [id number] [place] [address] Apr, [facility] [address] [id number] [place] [address] Mar, [facility] [address] [id number] [place] [address] Mar, [facility] [address] [id number] [place] [address] Mar, [facility] [address] [id number] [place] [address] Mar, [facility] [address] [id number] [place] [address] February, [facility] [address] [id number] [place] [address] February, [facility] [address] [id number] [place] [address] Jan, [facility] [address] [id number] [place] [address] Jan, [facility] [address] [id number] [place] [address] Oct, [facility] [address] [id number] [place] [address] Oct, [facility] [address] [id number] [place] [address] Oct, [facility] [address] [id number] [place] [address] Oct, [facility] [address] [id number] [place] [address] Oct, [facility] [address] [id number] [place] [address] Oct, [facility] [address] [id number] [place] [address] Oct, [facility] [address] [id number] [place] [address] Oct, [facility] [address] [id number] [place] [address] Oct, [facility] [address] [id number] [place] [address] Dec, [facility] [address] [id number] [place] [address] Sep, [facility] [address] [id number] [place] [address] Sep, [facility] [address] [id number] [place] [address] May, [facility] [address] [id number] [place] [address] Apr, [facility] [address] [place] [id number] [place] [address] Apr, [facility] [address] [id number] [place] [address] Apr, [facility] [address] [id number] [place] [id number] February, [facility] [address] [id number] [place] [address] Jan, [facility] [address] [place] [id number] [place] [address] Dec, [facility] [address] [place] [id number] [place] [address] Sep, [facility] [address] [place] [id number] [place] [address] Sep, [facility] [address] [place] [id number] [place] [address] Aug, [facility] [address] [place] [id number] [place] [address] Aug, [facility] [address] [place] [id number] [place] [address] Jul, [facility] [address] [id number] [place] [address] Mar, [facility] [address] [address] [id number] [place] [address] Mar, [facility] [address] [id number] [place] [address] Mar, IMMUNIZATIONS No Known Immunizations SOCIAL HISTORY Never Assessed REASON FOR VISIT PLAN OF CARE VITAL SIGNS Weight 154.38 lbs 2014-01-25 Temperature 97.7 degrees Fahrenheit 2014-01-25 Heart Rate 78 bpm 2014-01-25 Respiratory Rate 28 2014-01-25 Blood pressure systolic 150 mmHg 2014-01-25 Blood pressure diastolic 98 mmHg 2014-01-25 MEDICATIONS Unknown Medications RESULTS No Results PROCEDURES No Known procedures INSTRUCTIONS MEDICATIONS ADMINISTERED No Known Medications MEDICAL (GENERAL) HISTORY Type Description Date Medical History hyperlipidemia Medical History hypertension Medical History mood disorder Medical History mild mental retardation Medical History insomnia Medical History anxiety Medical History Asperger's Surgical History laser eye surgery
--- OUTSIDE RECORDS SUMMARY | 2020-01-04 10:15 | XMS REPORT ---
Author Author Anton CHAVEZ Organization [facility] Address [address] [place] [address] Care Team Providers Care Open Winder Name Role Phone SCOTT ARIEL Unavailable PROBLEMS Type Condition ICD9-CM Code CBA55-NC Code Onset Dates Condition S tatus SNOMED Code Problem Essential hypertension I10 Active 59831384 Problem Anxiety F41.9 Active 46044633 Problem Hyperlipidemia, unspecified hyperlipidemia E78.5 Active 09691749 Problem CKD (chronic kidney disease), stage III N18.3 Active 941948459 Problem History of colon polyps Z86.010 Active 832032966 Problem Nicotine abuse Z72.0 Active 21984 008 Problem Developmental disorder F89 Active 7169038 Problem Urinary incontinence, unspecified type R32 Active 601081822 Problem Hyperglycemia R73.9 Active 653447 07 ALLERGIES No Information ENCOUNTERS Encounter Location Date Diagnosis [facility] [address] [address] 14 Jan, 2020 OUTREACH [facility] [address] [facility] [id number] [place] [address] Oct, Oral health maintenance stat us requiring routine preventive dental care K08.9 [facility] [address] [address] 16 Oct, 2019 Essential hypertension I10 ; Hyperlipide iqra, unspecified hyperlipidemia E78.5 ; Prostate cancer screening Z12.5 and Screening PSA (prostate specific antigen) Z12.5 [facility] [address] [address] 09 Oct, 2019 History of test for hearing Z92.89 [facility] [address] [address] 09 Oct, 2019 [facility] [address] [address] Oct, Essential hypertension I10 ; Hyperlipide iqra, unspecified hyperlipidemia E78.5 ; Prostate cancer screening Z12.5 ; History of tobacco abuse Z87.891 ; History of colon polyps Z86.010 and Encounter for immunization Z23 [facility] [address] [address] 10 Sep, 2019 Anxiety F41.9 and Developmental disorder F89 [place] [address] [address] 09 Sep, 2019 Essential hypertension I10 ; History of tobacco abuse Z87.891 ; CKD (chronic kidney disease), stage III N18.3 and Encounter for immunization Z23 [place] [address] [address] Aug, [facility]ACH [facility] [address] [place] [id number] [place] [address] Jul, Dental examination Z01.20 an d Oral health maintenance status requiring routine preventive dental care K08.9 [place] [address] [address] May, Anxiety F41.9 ; Developmental disorder F 89 and Nicotine abuse Z72.0 [place] [address] [address] Apr, [place] [address] [address] February, [place] [address] [address] February, Anxiety F41.9 ; Developmental disorder F 89 and Nicotine abuse Z72.0 [place] [address] [address] February, Essential hypertension I10 and Impacted cerumen, bilateral H61.23 [facility] [address] [facility] [id number] [place] [id number] Dec, Oral health maintenance status requiring routine preventive dental care K08.9 [place] [address] [address] Dec, Developmental disorder F89 and Anxiety F 41.9 [facility] [address] [address] Nov, [facility] [address] [address] Nov, Essential hypertension I10 [facility] [address] [address] Nov, Essential hypertension I10 [facility] [address] [address] Nov, Developmental disorder F89 and Anxiety F 41.9 [place] [address] [address] Nov, [facility] [address] [address] Nov, Essential hypertension I10 [place] [address] [address] Oct, Elevated blood sugar R73.09 [place] [address] [address] Oct, Elevated blood sugar R73.09 [place] [address] [address] Oct, Encounter for Medicare annual wellness e xam Z00.00 ; Screening PSA (prostate specific antigen) Z12.5 ; Essential hypertension I10 ; Hyperlipidemia, unspecified hyperlipidemia E78.5 ; Nicotine abuse Z72.0 ; Anxiety F41.9 ; Bilateral impacted cerumen H61.23 and Developmental disorder F89 [facility] [address] [address] Oct, Encounter for Medicare annual wellness e xam Z00.00 ; Essential hypertension I10 ; Hyperlipidemia, unspecified hyperlipidemia E78.5 ; Nicotine abuse Z72.0 ; Anxiety F41.9 ; Developmental disorder F89 and Screening PSA (prostate specific antigen) Z12.5 [facility] [address] [id number] Sep, Dental examination Z01.20 [place] [address] [place] [id number] 16 Jul, 2018 Developmental disorder F89 and Anxiety F 41.9 [place] [address] [address] Jun, Essential hypertension I10 ; Nicotine ab use Z72.0 and Encounter for immunization Z23 [facility] [address] [id number] Apr, Dental examination Z01.20 [facility] [address] [id number] Jan, Dental examination Z01.20 [place] [address] [address] Dec, Developmental disorder F89 and Anxiety F 41.[address] [address] 14 Nov, 2017 Essential hypertension I10 ; Hyperlipide iqra, unspecified hyperlipidemia E78.5 ; Nicotine abuse Z72.0 and Bilateral impacted cerumen H61.23 [place] [address] [address] Oct, [facility] [address] [id number] Sep, Encounter for dental exam and cleaning w /o abnormal findings Z01.20 [place] [address] [address] Sep, Medicare annual wellness visit, initial Z00.00 and Encounter for immunization Z23 [address] [address] Aug, Encounter for immunization Z23 ; Develop mental disorder F89 and Anxiety F41.9 [facility] [address] [id number] 13 Jun, 2017 Encounter for dental examination and donte aning without abnormal findings Z01.20 [place] [address] [address] Apr, Anxiety F41.9 and Developmental disorder F89 [address] [address] Apr, Essential hypertension I10 and Nicotine abuse Z72.0 [facility] [address] [facility] [address] [id number] [place] [id number] Mar, Dental examination Z01.20 [facility] [address] [id number] Mar, Encounter for dental examination and donte aning without abnormal findings Z01.[address] [address] Jan, [address] [address] Dec, Developmental disorder F89 and Anxiety F 41.9 [facility] [address] [id number] Dec, Encounter for dental examination and donte aning without abnormal findings Z01.[address] [address] Sep, Encounter for immunization Z23 [address] [address] 08 Sep, 2016 Prostate cancer screening Z12.5 and Hype rlipidemia, unspecified hyperlipidemia E78.[address] [address] Sep, Annual physical exam Z00.00 ; Encounter for immunization Z23 ; Essential hypertension I10 ; Hyperlipidemia, unspecified hyperlipidemia E78.5 ; Anxiety F41.9 ; Prostate cancer screening Z12.5 and Nicotine abuse Z72.[address] [address] Aug, [address] [address] Jul, Urinary incontinence, unspecified type R 32 [facility] [address] [id number] Jul, Dental examination Z01.20 [facility] [address] [place] [id number] Jul, Urinary incontinence, unspecified type R 32 [facility] [address] [address] Jul, Anxiety F41.9 and Developmental disorder F89 [facility] [address] [id number] May, Dental examination Z01.20 [place] [address] [facility] [id number] Apr, Encounter for dental examination Z01.20 [facility] [address] [id number] Apr, Encounter for dental examination and donte aning without abnormal findings Z01.20 [facility] [address] [place] [id number] Mar, Developmental disorder F89 and Anxiety F 41.9 [facility] [address] [id number] February, Dental examination Z01.20 [facility] [address] [place] [id number] February, Essential hypertension I10 [facility] [address] [place] [id number] February, Arthralgia M25.50 [facility] [address] [id number] Jan, Encounter for dental examination and donte aning without abnormal findings Z01.20 [facility] [address] [place] [id number] Dec, [facility] [address] [place] [id number] Nov, Anxiety F41.9 and Developmental disorder F89 [facility] [address] [address] 17 Nov, 2015 [facility] [address] [address] Nov, [facility] [address] [address] Oct, Hyperlipidemia, unspecified hyperlipidem ia E78.5 [facility] [address] [address] Oct, Essential hypertension I10 ; Hyperlipide iqra, unspecified hyperlipidemia E78.5 and Prostate cancer screening Z12.5 [place] [address] [address] Oct, Essential hypertension I10 ; Hyperlipide iqra, unspecified hyperlipidemia E78.5 ; Nicotine abuse Z72.0 ; Anxiety F41.9 ; Developmental disorder F89 and Prostate cancer screening Z12.5 [place] [address] [address] Aug, Anxiety F41.9 and Developmental disorder F89 [place] [address] [address] Aug, Essential hypertension I10 and Encounter for immunization Z23 [place] [address] [address] Aug, Prostate cancer screening Z12.5 [place] [address] [address] Jun, Hypertension 401.9 [facility] [address] [address] Jun, [facility] [address] [address] May, Impulse control disorder, unspecified 31 2.30 ; Generalized anxiety disorder 300.02 ; Other specified pervasive developmental disorders, 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 and 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 [place] [address] [address] Mar, Hypertension 401.9 [facility] [address] [id number] [place] [id number] 15 Mar, 2015 Dental examination V72.2 [facility] [id number] [place] [address] February, Hypertension 401.9 and Hyperlipidemia 27 2.4 [facility] [id number] [place] [address] February, [facility] [id number] [place] [address] February, Generalized anxiety disorder 300.02 ; Im pulse control disorder 312.30 ; 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 and Benign essential HTN 401.1 [facility] [id number] [place] [address] Jan, [facility] [id number] [place] [address] Jan, [facility] [id number] [place] [address] 18 Dec, 2014 [facility] [id number] [place] [address] 18 Dec, 2014 [facility] [id number] [place] [address] 17 Dec, 2014 [facility] [id number] [place] [address] 17 Dec, 2014 [facility] [id number] [place] [address] 16 Dec, 2014 [facility] [id number] [place] [address] 16 Dec, 2014 [facility] [id number] [place] [address] Dec, [facility] [id number] [place] [address] 09 Dec, 2014 [facility] [id number] [place] [address] Nov, [facility] [address] [id number] [place] [address] 20 Nov, 2014 [facility] [address] [id number] [place] [address] Nov, [facility] [address] [id number] [place] [address] Nov, 2014 [facility] [address] [id number] [place] [address] Nov, 2014 [facility] [address] [id number] [place] [address] Nov, [facility] [address] [id number] [place] [address] Nov, [facility] [address] [id number] [place] [address] Nov, [facility] [address] [id number] [place] [address] Oct, [facility] [address] [id number] [place] [address] Oct, [facility] [address] [id number] [place] [address] Oct, [facility] [address] [id number] [place] [address] Oct, [facility] [address] [id number] [place] [address] Oct, [facility] [address] [id number] [place] [address] Oct, [facility] [address] [id number] [place] [address] Sep, [facility] [address] [id number] [place] [address] Sep, [facility] [address] [id number] [place] [address] Sep, [facility] [address] [id number] [place] [address] Sep, [facility] [address] [facility] [id number] [place] [address] Sep, [facility] [address] [facility] [id number] [place] [address] Sep, [facility] [address] [id number] [place] [address] Aug, [facility] [address] [id number] [place] [address] Aug, [facility] [address] [facility] [id number] [place] [address] Aug, [facility] [address] [id number] [place] [address] Aug, [facility] [address] [id number] [place] [address] Jul, [facility] [address] [id number] [place] [address] Jul, [facility] [address] [id number] [place] [address] May, [facility] [address] [id number] [place] [address] May, [facility] [address] [id number] [place] [address] Apr, [facility] [address] [id number] [place] [address] Apr, [facility] [address] [id number] [place] [address] Mar, [facility] [address] [id number] [place] [address] Mar, [facility] [address] [id number] [place] [address] Mar, [facility] [address] [id number] [place] [address] Mar, [facility] [address] [id number] [place] [address] February, [facility] [address] [id number] [place] [address] February, [facility] [address] [id number] [place] [address] Jan, [facility] [address] [id number] [place] [address] Jan, [facility] [address] [id number] [place] [address] Oct, [facility] [address] [id number] [place] [address] Oct, [facility] [address] [id number] [place] [address] Oct, [facility] [address] [id number] [place] [address] Oct, [facility] [address] [id number] [place] [address] Oct, [facility] [address] [id number] [place] [address] Oct, [facility] [address] [id number] [place] [address] Oct, [facility] [address] [id number] [place] [address] Oct, [facility] [address] [id number] [place] [address] Oct, [facility] [address] [id number] [place] [address] Dec, [facility] [address] [id number] [place] [address] Sep, [facility] [address] [id number] [place] [address] Sep, [facility] [address] [id number] [place] [address] May, [facility] [address] [id number] [place] [address] Apr, [facility] [id number] [place] [address] Apr, [facility] [address] [id number] [place] [address] Apr, [facility] [address] [id number] [place] [id number] February, [facility] [id number] [place] [address] Jan, [facility] [id number] [place] [address] Dec, [facility] [id number] [place] [address] Sep, [facility] [id number] [place] [address] Sep, [facility] [id number] [place] [address] Aug, [facility] [id number] [place] [address] Aug, [facility] [id number] [place] [address] Jul, [facility] [address] [id number] [place] [address] Mar, [facility] [id number] [place] [address] Mar, [facility] [address] [id number] [place] [address] Mar, IMMUNIZATIONS No Known Immunizations SOCIAL HISTORY [...]
--- OUTSIDE RECORDS SUMMARY | 2020-01-04 10:15 | XMS REPORT ---
Author Author Anton CHAVEZ Organization [facility] Address [address] [place] [address] Care Team Providers Care Transcriber Name Role Phone SCOTT ARIEL Unavailable PROBLEMS Type Condition ICD9-CM Code NCO08-ZM Code Onset Dates Condition S tatus SNOMED Code Problem Essential hypertension I10 Active 67013530 Problem Anxiety F41.9 Active 63814769 Problem Hyperlipidemia, unspecified hyperlipidemia E78.5 Active 27442768 Problem CKD (chronic kidney disease), stage III N18.3 Active 390806686 Problem History of colon polyps Z86.010 Active 320362122 Problem Nicotine abuse Z72.0 Active 24452 008 Problem Developmental disorder F89 Active 7180313 Problem Urinary incontinence, unspecified type R32 Active 006525166 Problem Hyperglycemia R73.9 Active 706153 07 ALLERGIES No Information ENCOUNTERS Encounter Location Date Diagnosis [facility] [address] [address] 14 Jan, 2020 OUTREACH [facility] [address] [id number] [place] [address] Oct, [facility] [address] [address] Oct, Essential hypertension I10 ; Hyperlipide iqra, unspecified hyperlipidemia E78.5 ; Prostate cancer screening Z12.5 and Screening PSA (prostate specific antigen) Z12.5 [facility] [address] [address] 09 Oct, 2019 History of test for hearing Z92.89 [facility] [address] [address] 09 Oct, 2019 [facility] [address] [address] Oct, Essential hypertension I10 ; Hyperlipide iqra, unspecified hyperlipidemia E78.5 ; Prostate cancer screening Z12.5 ; History of tobacco abuse Z87.891 ; History of colon polyps Z86.010 and Encounter for immunization Z23 [facility] [id number] [place] [address] 10 Sep, 2019 Anxiety F41.9 and Developmental disorder F89 [place] [address] [address] 09 Sep, 2019 Essential hypertension I10 ; History of tobacco abuse Z87.891 ; CKD (chronic kidney disease), stage III N18.3 and Encounter for immunization Z23 [place] [id number] [place] [address] Aug, OUTREACH [facility] [address] [address] [id number] [place] [address] Jul, Dental examination Z01.20 an d Oral health maintenance status requiring routine preventive dental care K08.9 [place] [id number] [place] [address] May, Anxiety F41.9 ; Developmental disorder F 89 and Nicotine abuse Z72.0 [place] [address] [address] Apr, [facility] [address] [address] February, [place] [address] [address] February, Anxiety F41.9 ; Developmental disorder F 89 and Nicotine abuse Z72.0 [facility] [id number] [place] [address] February, Essential hypertension I10 and Impacted cerumen, bilateral H61.23 [facility] [address] [facility] [place] [id number] Dec, Oral health maintenance status requiring routine preventive dental care K08.9 [facility] [address] [address] Dec, Developmental disorder F89 and Anxiety F 41.9 [facility] [id number] [place] [address] Nov, [facility] [address] [address] Nov, Essential hypertension I10 [facility] [address] [address] Nov, Essential hypertension I10 [facility] [address] [address] Nov, Developmental disorder F89 and Anxiety F 41.9 [facility] [address] [address] Nov, [facility] [address] [address] Nov, Essential hypertension I10 [facility] [address] [address] Oct, Elevated blood sugar R73.09 [facility] [address] [address] Oct, Elevated blood sugar R73.09 [place] [address] [address] Oct, Encounter for Medicare annual wellness e xam Z00.00 ; Screening PSA (prostate specific antigen) Z12.5 ; Essential hypertension I10 ; Hyperlipidemia, unspecified hyperlipidemia E78.5 ; Nicotine abuse Z72.0 ; Anxiety F41.9 ; Bilateral impacted cerumen H61.23 and Developmental disorder F89 [facility] [address] [address] Oct, Encounter for Medicare annual wellness e xam Z00.00 ; Essential hypertension I10 ; Hyperlipidemia, unspecified hyperlipidemia E78.5 ; Nicotine abuse Z72.0 ; Anxiety F41.9 ; Developmental disorder F89 and Screening PSA (prostate specific antigen) Z12.5 [facility] [address] [facility] [place] [id number] Sep, Dental examination Z01.20 [facility] [address] [address] 16 Jul, 2018 Developmental disorder F89 and Anxiety F 41.9 [facility] [address] [id number] Jun, Essential hypertension I10 ; Nicotine ab use Z72.0 and Encounter for immunization Z23 [facility] [address] [id number] Apr, Dental examination Z01.20 [facility] [address] [id number] Jan, Dental examination Z01.20 [place] [address] [address] 27 Dec, 2017 Developmental disorder F89 and Anxiety F 41.[address] [address] 14 Nov, 2017 Essential hypertension I10 ; Hyperlipide iqra, unspecified hyperlipidemia E78.5 ; Nicotine abuse Z72.0 and Bilateral impacted cerumen H61.23 [place] [address] [address] Oct, [facility] [address] [id number] Sep, Encounter for dental exam and cleaning w /o abnormal findings Z01.20 [facility] [address] [address] 11 Sep, 2017 Medicare annual wellness visit, initial Z00.00 and Encounter for immunization Z23 [address] [address] 28 Aug, 2017 Encounter for immunization Z23 ; Develop mental disorder F89 and Anxiety F41.9 [facility] [address] [id number] 13 Jun, 2017 Encounter for dental examination and donte aning without abnormal findings Z01.20 [facility] [address] [address] Apr, Anxiety F41.9 and Developmental disorder F89 [facility] [address] [place] [address] Apr, Essential hypertension I10 and Nicotine abuse Z72.0 [facility] [id number] [place] [id number] Mar, Dental examination Z01.20 [facility] [address] [id number] Mar, Encounter for dental examination and donte aning without abnormal findings Z01.[address] [address] Jan, [address] [address] Dec, Developmental disorder F89 and Anxiety F 41.9 [facility] [address] [place] [id number] Dec, Encounter for dental examination and donte aning without abnormal findings Z01.20 [place] [address] [address] 15 Sep, 2016 Encounter for immunization Z23 [address] [address] Sep, Prostate cancer screening Z12.5 and Hype rlipidemia, unspecified hyperlipidemia E78.[address] [address] Sep, Annual physical exam Z00.00 ; Encounter for immunization Z23 ; Essential hypertension I10 ; Hyperlipidemia, unspecified hyperlipidemia E78.5 ; Anxiety F41.9 ; Prostate cancer screening Z12.5 and Nicotine abuse Z72.[address] [address] Aug, [facility] [address] [place] [address] Jul, Urinary incontinence, unspecified type R 32 [facility] [address] [id number] Jul, Dental examination Z01.20 [facility] [address] [address] Jul, Urinary incontinence, unspecified type R 32 [facility] [address] [address] Jul, Anxiety F41.9 and Developmental disorder F89 [facility] [address] [id number] May, Dental examination Z01.20 [place] [address] [facility] [id number] Apr, Encounter for dental examination Z01.20 [facility] [address] [id number] Apr, Encounter for dental examination and donte aning without abnormal findings Z01.20 [facility] [address] [address] Mar, Developmental disorder F89 and Anxiety F 41.9 [facility] [address] [id number] February, Dental examination Z01.20 [facility] [address] [address] February, Essential hypertension I10 [facility] [address] [address] February, Arthralgia M25.50 [facility] [address] [id number] Jan, Encounter for dental examination and donte aning without abnormal findings Z01.20 [facility] [address] [address] Dec, [facility] [address] [id number] Nov, Anxiety F41.9 and Developmental disorder F89 [facility] [address] [address] Nov, [facility] [id number] [place] [address] Nov, [facility] [id number] [place] [address] Oct, Hyperlipidemia, unspecified hyperlipidem ia E78.5 [facility] [id number] [place] [address] Oct, Essential hypertension I10 ; Hyperlipide iqra, unspecified hyperlipidemia E78.5 and Prostate cancer screening Z12.5 [facility] [address] [address] Oct, Essential hypertension I10 ; Hyperlipide iqra, unspecified hyperlipidemia E78.5 ; Nicotine abuse Z72.0 ; Anxiety F41.9 ; Developmental disorder F89 and Prostate cancer screening Z12.5 [facility] [address] [address] Aug, Anxiety F41.9 and Developmental disorder F89 [facility] [address] [address] Aug, Essential hypertension I10 and Encounter for immunization Z23 [facility] [id number] [place] [address] Aug, Prostate cancer screening Z12.5 [facility] [address] [address] Jun, Hypertension 401.9 [facility] [address] [address] Jun, [facility] [address] [address] May, Impulse control disorder, unspecified 31 2.30 ; Generalized anxiety disorder 300.02 ; Other specified pervasive developmental disorders, 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 and 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 [facility] [id number] [place] [address] Mar, Hypertension 401.9 [facility] [id number] [place] [address] 15 Mar, 2015 Dental examination V72.2 [facility] [id number] [place] [address] February, Hypertension 401.9 and Hyperlipidemia 27 2.4 [facility] [id number] [place] [address] February, [facility] [id number] [place] [address] February, Generalized anxiety disorder 300.02 ; Im pulse control disorder 312.30 ; 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 and Benign essential HTN 401.1 [facility] [id number] [place] [address] Jan, [facility] [id number] [place] [address] Jan, [facility] [id number] [place] [address] 18 Dec, 2014 [facility] [id number] [place] [address] 18 Dec, 2014 [facility] [id number] [place] [address] 17 Dec, 2014 [facility] [id number] [place] [address] 17 Dec, 2014 [facility] [id number] [place] [address] 16 Dec, 2014 [facility] [id number] [place] [address] 16 Dec, 2014 [facility] [id number] [place] [address] Dec, [facility] [id number] [place] [address] Dec, [facility] [id number] [place] [address] 20 Nov, 2014 [facility] [id number] [place] [address] Nov, 2014 [facility] [address] [id number] [place] [address] Nov, [facility] [address] [id number] [place] [address] Nov, [facility] [address] [id number] [place] [address] Nov, [facility] [address] [id number] [place] [address] Nov, [facility] [address] [id number] [place] [address] Nov, [facility] [address] [id number] [place] [address] Nov, [facility] [id number] [place] [address] Oct, [facility] [address] [id number] [place] [address] Oct, [facility] [address] [id number] [place] [address] Oct, [facility] [id number] [place] [address] Oct, [facility] [address] [id number] [place] [address] Oct, [facility] [id number] [place] [address] Oct, [facility] [address] [id number] [place] [address] Sep, [facility] [id number] [place] [address] Sep, [facility] [address] [id number] [place] [address] Sep, [facility] [address] [id number] [place] [address] Sep, [facility] [address] [facility] [id number] [place] [address] Sep, [facility] [address] [id number] [place] [address] Sep, [facility] [address] [id number] [place] [address] Aug, [facility] [address] [id number] [place] [address] Aug, [facility] [address] [id number] [place] [address] Aug, [facility] [address] [id number] [place] [address] Aug, [facility] [address] [id number] [place] [address] Jul, [facility] [address] [id number] [place] [address] Jul, [facility] [address] [id number] [place] [address] May, [facility] [address] [id number] [place] [address] May, [facility] [address] [id number] [place] [address] Apr, [facility] [address] [id number] [place] [address] Apr, [facility] [address] [id number] [place] [address] Mar, [facility] [address] [id number] [place] [address] Mar, [facility] [address] [id number] [place] [address] Mar, [facility] [address] [id number] [place] [address] Mar, [facility] [address] [id number] [place] [address] February, [facility] [address] [id number] [place] [address] February, [facility] [address] [id number] [place] [address] Jan, [facility] [address] [id number] [place] [address] Jan, [facility] [address] [id number] [place] [address] Oct, [facility] [address] [id number] [place] [address] Oct, [facility] [address] [id number] [place] [address] Oct, [facility] [address] [id number] [place] [address] Oct, [facility] [address] [id number] [place] [address] Oct, [facility] [address] [id number] [place] [address] Oct, [facility] [address] [id number] [place] [address] Oct, [facility] [address] [id number] [place] [address] Oct, [facility] [address] [id number] [place] [address] Oct, [facility] [address] [id number] [place] [address] Dec, [facility] [address] [id number] [place] [address] Sep, [facility] [address] [id number] [place] [address] Sep, [facility] [address] [id number] [place] [address] May, [facility] [id number] [place] [address] Apr, [facility] [address] [id number] [place] [address] Apr, [facility] [address] [id number] [place] [address] Apr, [facility] [address] [id number] [place] [id number] February, [facility] [id number] [place] [address] Jan, [facility] [id number] [place] [address] Dec, [facility] [id number] [place] [address] Sep, [facility] [id number] [place] [address] Sep, [facility] [id number] [place] [address] Aug, [facility] [id number] [place] [address] Aug, [facility] [id number] [place] [address] Jul, [facility] [id number] [place] [address] Mar, [facility] [id number] [place] [address] Mar, [facility] [id number] [place] [address] Mar, IMMUNIZATIONS No Known Immunizations SOCIAL HISTORY [...]
--- OUTSIDE RECORDS SUMMARY | 2020-01-04 10:15 | XMS REPORT ---
Author Author Anton CHAVEZ Organization [facility] Address [address] [place] [address] Care Team Providers Care Policy Services Representative Name Role Phone SCOTT ARIEL Unavailable PROBLEMS Type Condition ICD9-CM Code [id number] Code Onset Dates Condition S tatus SNOMED Code Problem Essential hypertension I10 Active 07045478 Problem Anxiety F41.9 Active 19162409 Problem Hyperlipidemia, unspecified hyperlipidemia E78.5 Active 03031299 Problem CKD (chronic kidney disease), stage III N18.3 Active 177872962 Problem History of colon polyps Z86.010 Active 696316296 Problem Nicotine abuse Z72.0 Active 88692 008 Problem Developmental disorder F89 Active 7600761 Problem Urinary incontinence, unspecified type R32 Active 127016008 Problem Hyperglycemia R73.9 Active 666746 07 ALLERGIES No Information ENCOUNTERS Encounter Location Date Diagnosis [facility] [address] [address] 14 Jan, 2020 OUTREACH [facility] [address] [facility] [address] [id number] [place] [address] Oct, Oral health maintenance stat us requiring routine preventive dental care K08.9 [facility] [address] [address] 16 Oct, 2019 Essential hypertension I10 ; Hyperlipide iqra, unspecified hyperlipidemia E78.5 ; Prostate cancer screening Z12.5 and Screening PSA (prostate specific antigen) Z12.5 [facility] [address] [address] 09 Oct, 2019 History of test for hearing Z92.89 [facility] [address] [address] 09 Oct, 2019 [facility] [address] [address] Oct, Essential hypertension I10 ; Hyperlipide iqra, unspecified hyperlipidemia E78.5 ; Prostate cancer screening Z12.5 ; History of tobacco abuse Z87.891 ; History of colon polyps Z86.010 and Encounter for immunization Z23 [facility] [address] [address] 10 Sep, 2019 Anxiety F41.9 and Developmental disorder F89 [place] [address] [address] 09 Sep, 2019 Essential hypertension I10 ; History of tobacco abuse Z87.891 ; CKD (chronic kidney disease), stage III N18.3 and Encounter for immunization Z23 [place] [address] [address] Aug, OUTREACH [facility] [address] [place] [address] [id number] [place] [address] Jul, Dental examination Z01.20 an d Oral health maintenance status requiring routine preventive dental care K08.9 [place] [address] [address] May, Anxiety F41.9 ; Developmental disorder F 89 and Nicotine abuse Z72.0 [place] [address] [address] Apr, [place] [address] [address] February, [place] [address] [address] February, Anxiety F41.9 ; Developmental disorder F 89 and Nicotine abuse Z72.0 [place] [address] [address] February, Essential hypertension I10 and Impacted cerumen, bilateral H61.23 [facility] [address] [facility] [id number] [place] [id number] Dec, Oral health maintenance status requiring routine preventive dental care K08.9 [place] [address] [address] Dec, Developmental disorder F89 and Anxiety F 41[address] [facility] [address] [address] Nov, [facility] [address] [address] Nov, Essential hypertension I10 [facility] [address] [address] Nov, Essential hypertension I10 [facility] [address] [address] Nov, Developmental disorder F89 and Anxiety F 41.9 [place] [address] [address] Nov, [facility] [address] [address] Nov, Essential hypertension I10 [place] [address] [address] Oct, Elevated blood sugar R73.09 [place] [address] [address] Oct, Elevated blood sugar R73.09 [place] [address] [address] Oct, Encounter for Medicare annual wellness e xam Z00.00 ; Screening PSA (prostate specific antigen) Z12.5 ; Essential hypertension I10 ; Hyperlipidemia, unspecified hyperlipidemia E78.5 ; Nicotine abuse Z72.0 ; Anxiety F41.9 ; Bilateral impacted cerumen H61.23 [address] disorder F89 [facility] [address] [address] Oct, Encounter for Medicare annual wellness e xam Z00.00 ; Essential hypertension I10 ; Hyperlipidemia, unspecified hyperlipidemia E78.5 ; Nicotine abuse Z72.0 ; Anxiety F41.9 ; Developmental disorder F89 and Screening PSA (prostate specific antigen) Z12.5 [facility] [address] [id number] Sep, Dental examination Z01.20 [place] [address] [place] [id number] 16 Jul, 2018 Developmental disorder F89 and Anxiety F 41.9 [place] [address] [address] Jun, Essential hypertension I10 ; Nicotine ab use Z72.0 and Encounter for immunization Z23 [facility] [address] [id number] Apr, Dental examination Z01.20 [facility] [address] [id number] Jan, Dental examination Z01.20 [place] [address] [address] Dec, Developmental disorder F89 and Anxiety F 41.[address] [address] 14 Nov, 2017 Essential hypertension I10 ; Hyperlipide iqra, unspecified hyperlipidemia E78.5 ; Nicotine abuse Z72.0 and Bilateral impacted cerumen H61.23 [place] [address] [address] Oct, [facility] [address] [id number] Sep, Encounter for dental exam and cleaning w /o abnormal findings Z01.20 [place] [address] [address] Sep, Medicare annual wellness visit, initial Z00.00 and Encounter for immunization Z23 [address] [address] Aug, Encounter for immunization Z23 ; Develop mental disorder F89 and Anxiety F41.9 [facility] [address] [id number] 13 Jun, 2017 Encounter for dental examination and donte aning without abnormal findings Z01.20 [place] [address] [address] Apr, Anxiety F41.9 and Developmental disorder F89 [address] [address] Apr, Essential hypertension I10 and Nicotine abuse Z72.0 [facility] [address] [facility] [address] [id number] [place] [id number] Mar, Dental examination Z01.20 [facility] [address] [id number] Mar, Encounter for dental examination and donte aning without abnormal findings Z01.[address] [address] Jan, [address] [address] Dec, Developmental disorder F89 and Anxiety F 41.9 [facility] [address] [id number] Dec, Encounter for dental examination and donte aning without abnormal findings Z01.[address] [address] Sep, Encounter for immunization Z23 [address] [address] 08 Sep, 2016 Prostate cancer screening Z12.5 and Hype rlipidemia, unspecified hyperlipidemia E78.[address] [address] Sep, Annual physical exam Z00.00 ; Encounter for immunization Z23 ; Essential hypertension I10 ; Hyperlipidemia, unspecified hyperlipidemia E78.5 ; Anxiety F41.9 ; Prostate cancer screening Z12.5 and Nicotine abuse Z72.[address] [address] Aug, [address] [address] Jul, Urinary incontinence, unspecified type R 32 [facility] [address] [id number] Jul, Dental examination Z01.20 [facility] [address] [place] [id number] Jul, Urinary incontinence, unspecified type R 32 [facility] [address] [address] Jul, Anxiety F41.9 and Developmental disorder F89 [facility] [address] [id number] May, Dental examination Z01.20 [place] [address] [facility] [id number] Apr, Encounter for dental examination Z01.20 [facility] [address] [id number] Apr, Encounter for dental examination and donte aning without abnormal findings Z01.20 [facility] [address] [place] [id number] Mar, Developmental disorder F89 and Anxiety F 41.9 [facility] [address] [id number] February, Dental examination Z01.20 [facility] [address] [place] [id number] February, Essential hypertension I10 [facility] [address] [place] [id number] February, Arthralgia M25.50 [facility] [address] [id number] Jan, Encounter for dental examination and donte aning without abnormal findings Z01.20 [facility] [address] [place] [id number] Dec, [facility] [address] [place] [id number] Nov, Anxiety F41.[address] Developmental disorder F89 [facility] [address] [address] 17 Nov, 2015 [facility] [address] [address] Nov, [facility] [address] [address] Oct, Hyperlipidemia, unspecified hyperlipidem ia E78.5 [facility] [address] [address] Oct, Essential hypertension I10 ; Hyperlipide iqra, unspecified hyperlipidemia E78.5 and Prostate cancer screening Z12.5 [place] [address] [address] Oct, Essential hypertension I10 ; Hyperlipide iqra, unspecified hyperlipidemia E78.5 ; Nicotine abuse Z72.0 ; Anxiety F41.9 ; Developmental disorder F89 and Prostate cancer screening Z12.5 [place] [address] [address] Aug, Anxiety F41.9 and Developmental disorder F89 [place] [address] [address] Aug, Essential hypertension I10 and Encounter for immunization Z23 [place] [address] [address] Aug, Prostate cancer screening Z12.5 [place] [address] [address] Jun, Hypertension 401.9 [facility] [address] [address] Jun, 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 [address] [place] [id number] [place] [address] February, Hypertension 401.[address] [facility] [address] [place] [id number] [place] [address] February, 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 [address] [place] [id number] [place] [address] Jan, [facility] [address] [address] [id number] [place] [address] Jan, [facility] [address] [place] [id number] [place] [address] [address], [address] [facility] [address] [place] [address] [id number] [place] [address] [address], [address] [facility] [address] [place] [address] [id number] [place] [address] [address], [address] [facility] [address] [address] [id number] [place] [address] [address], [address] [facility] [address] [address] [id number] [place] [address] [address], [address] [facility] [address] [address] [id number] [place] [address] [address], [address] [facility] [address] [place] [address] [id number] [place] [address] Dec, [facility] [address] [place] [address] [id number] [place] [address] [address], [address] [facility] [address] [place] [address] [id number] [place] [address] Nov, [facility] [address] [id number] [place] [address] 20 Nov, 2014 [facility] [address] [id number] [place] [address] Nov, [facility] [address] [id number] [place] [address] Nov, 2014 [facility] [address] [id number] [place] [address] Nov, 2014 [facility] [address] [id number] [place] [address] Nov, [facility] [address] [id number] [place] [address] Nov, [facility] [address] [id number] [place] [address] Nov, [facility] [address] [id number] [place] [address] Oct, [facility] [address] [id number] [place] [address] Oct, [facility] [address] [id number] [place] [address] Oct, [facility] [address] [id number] [place] [address] Oct, [facility] [address] [id number] [place] [address] Oct, [facility] [address] [id number] [place] [address] Oct, [facility] [address] [id number] [place] [address] Sep, [facility] [address] [id number] [place] [address] Sep, [facility] [address] [id number] [place] [address] Sep, [facility] [address] [id number] [place] [address] Sep, [facility] [address] [facility] [id number] [place] [address] Sep, [facility] [address] [facility] [id number] [place] [address] Sep, [facility] [address] [id number] [place] [address] Aug, [facility] [address] [id number] [place] [address] Aug, [facility] [address] [facility] [id number] [place] [address] Aug, [facility] [address] [id number] [place] [address] Aug, [facility] [address] [id number] [place] [address] Jul, [facility] [address] [id number] [place] [address] Jul, [facility] [address] [id number] [place] [address] May, [facility] [address] [id number] [place] [address] May, [facility] [address] [id number] [place] [address] Apr, [facility] [address] [id number] [place] [address] Apr, [facility] [address] [id number] [place] [address] Mar, [facility] [address] [id number] [place] [address] Mar, [facility] [address] [id number] [place] [address] Mar, [facility] [address] [id number] [place] [address] Mar, [facility] [address] [id number] [place] [address] February, [facility] [address] [id number] [place] [address] February, [facility] [address] [id number] [place] [address] Jan, [facility] [address] [id number] [place] [address] Jan, [facility] [address] [id number] [place] [address] Oct, [facility] [address] [id number] [place] [address] Oct, [facility] [address] [id number] [place] [address] Oct, [facility] [address] [id number] [place] [address] Oct, [facility] [address] [id number] [place] [address] Oct, [facility] [address] [id number] [place] [address] Oct, [facility] [address] [id number] [place] [address] Oct, [facility] [address] [id number] [place] [address] Oct, [facility] [address] [id number] [place] [address] Oct, [facility] [address] [id number] [place] [address] Dec, [facility] [address] [id number] [place] [address] Sep, [facility] [address] [id number] [place] [address] Sep, [facility] [address] [id number] [place] [address] May, [facility] [address] [id number] [place] [address] Apr, [facility] [id number] [place] [address] Apr, [facility] [address] [id number] [place] [address] Apr, [facility] [address] [id number] [place] [id number] February, [facility] [id number] [place] [address] Jan, [facility] [address] [address] [id number] [place] [address] Dec, [facility] [address] [id number] [place] [address] Sep, [facility] [address] [address] [id number] [place] [address] Sep, [facility] [address] [id number] [place] [address] Aug, [facility] [address] [address] [id number] [place] [address] Aug, [facility] [address] [address] [id number] [place] [address] Jul, [facility] [address] [address] [id number] [place] [address] Mar, [facility] [id number] [place] [address] Mar, [facility] [id number] [place] [address] Mar, IMMUNIZATIONS No Known Immunizations SOCIAL HISTORY Never Assessed REASON FOR VISIT PLAN OF CARE VITAL SIGNS Height 67.5 in 2014-05-08 Weight 156 lbs 2014-05-08 Temperature 97.9 degrees Fahrenheit 2014-05-08 Heart Rate 88 bpm 2014-05-08 Respiratory Rate 32 2014-05-08 Blood pressure systolic 180 mmHg 2014-05-08 Blood pressure diastolic 94 mmHg 2014-05-08 MEDICATIONS Unknown Medications RESULTS No Results PROCEDURES No Known procedures INSTRUCTIONS MEDICATIONS ADMINISTERED No Known Medications MEDICAL (GENERAL) HISTORY Type Description Date Medical History hyperlipidemia Medical History hypertension Medical History mood disorder Medical History mild mental retardation Medical History insomnia Medical History anxiety Medical History Asperger's Surgical History laser eye surgery
--- OUTSIDE RECORDS SUMMARY | 2020-01-04 10:15 | XMS REPORT ---
Author Author Anton FAY Organization [facility] Address [address] [place] [address] Care Team Providers Care Enamel Buffer Name Role Phone TWAN FAY Unavailable PROBLEMS Type Condition ICD9-CM Code HJK37-TH Code Onset Dates Condition S tatus SNOMED Code Problem Essential hypertension I10 Active 99000902 Problem Urinary incontinence, unspecified type R32 Active 035863664 Problem Hyperglycemia R73.9 Active 192755 07 Problem Anxiety F41.9 Active 06414373 Problem Hyperlipidemia, unspecified hyperlipidemia E78.5 Active 37680845 Problem Nicotine abuse Z72.0 Active 59692 008 Problem Developmental disorder F89 Active [id number] ALLERGIES No Information ENCOUNTERS Encounter Location Date Diagnosis [facility] [address] [id number] [address] [place] [id number] Oct, [facility] [id number] [place] [phone] Jul, [facility] [address] [id number] [address] [place] [phone] May, Anxiety F41.9 ; Developmenta l disorder F89 and Nicotine abuse Z72.0 [facility] [address] [facility] [address] [facility] [id number] [address] [place] [phone] Apr, [facility] [address] [facility] [id number] [address] [place] [phone] February, [facility] [address] [id number] [address] [place] [phone] February, Anxiety F41.9 ; Developmenta l disorder F89 and Nicotine abuse Z72.0 [facility] [address] [id number] [address] [place] [phone] February, Essential hypertension I10 a nd Impacted cerumen, bilateral H61.23 [facility] [address] [id number] [address] [place] [address] [id number] Dec, Oral health maintenance stat us requiring routine preventive dental care K08.9 [facility] [address] [facility] [id number] [address] [place] [phone] Dec, Developmental disorder F89 a nd Anxiety F41.9 [facility] [address] [id number] [address] [place] [phone] Nov, [facility] [address] [id number] [address] [place] [phone] Nov, Essential hypertension I10 [facility] [address] [facility] [id number] [address] [place] [phone] Nov, Essential hypertension I10 [facility] [address] [facility] [id number] [address] [place] [phone] Nov, Developmental disorder F89 a nd Anxiety F41.9 [facility] [address] [facility] [id number] [address] [place] [phone] Nov, [facility] [address] [facility] [id number] [address] [place] [phone] Nov, Essential hypertension I10 [facility] [address] [facility] [id number] [address] [place] [phone] Oct, Elevated blood sugar R73.09 [facility] [address] [address] [facility] [id number] [address] [place] [phone] Oct, Elevated blood sugar R73.09 [facility] [address] [facility] [id number] [address] [place] [phone] Oct, Encounter for Medicare annua l wellness exam Z00.00 ; Screening PSA (prostate specific antigen) Z12.5 ; Essential hypertension I10 ; Hyperlipidemia, unspecified hyperlipidemia E78.5 ; Nicotine abuse Z72.0 ; Anxiety F41.9 ; Bilateral impacted cerumen H61.23 and Developmental disorder F89 [facility] [address] [facility] [id number] [address] [place] [phone] 14 Oct, 2018 Encounter for Medicare shay l wellness exam Z00.00 ; Essential hypertension I10 ; Hyperlipidemia, unspecified hyperlipidemia E78.5 ; Nicotine abuse Z72.0 ; Anxiety F41.9 ; Developmental disorder F89 and Screening PSA (prostate specific antigen) Z12.5 [facility] [address] [id number] [place] [address] [id number] Sep, Dental examination Z01.20 [facility] [address] [id number] [address] [place] [phone] 16 Jul, 2018 Developmental disorder F89 a nd Anxiety F41.9 [facility] [address] [facility] [id number] [place] [phone] 26 Jun, 2018 Essential hypertension I10 ; Nicotine abuse Z72.0 and Encounter for immunization Z23 [facility] [address] [id number] [id number] Apr, Dental examination Z01.20 [facility] [address] [facility] [id number] [place] [address] [id number] Jan, Dental examination Z01.20 [facility] [address] [facility] [id number] [place] [phone] Dec, Developmental disorder F89 a nd Anxiety F41.9 [facility] [address] [facility] [id number] [address] [place] [phone] 14 Nov, 2017 Essential hypertension I10 ; Hyperlipidemia, unspecified hyperlipidemia E78.5 ; Nicotine abuse Z72.0 and Bilateral impacted cerumen H61.23 [facility] [address] [id number] [address] [place] [phone] Oct, [facility] [address] [facility] [id number] [place] [address] [id number] Sep, Encounter for dental exam an d cleaning w/o abnormal findings Z01.20 [facility] [address] [address] [facility] [id number] [address] [place] [phone] Sep, Medicare annual wellness vis it, initial Z00.00 and Encounter for immunization Z23 [facility] [address] [id number] [address] [place] [phone] Aug, Encounter for immunization Z 23 ; Developmental disorder F89 and Anxiety F41.9 [facility] [address] [id number] [address] [place] [address] [phone] Jun, Encounter for dental examina tion and cleaning without abnormal findings Z01.20 [facility] [address] [id number] [address] [place] [phone] Apr, Anxiety F41.9 and Developmen oscar disorder F89 [facility] [address] [id number] [address] [place] [phone] Apr, Essential hypertension I10 a nd Nicotine abuse Z72.[id number] [place] [address] [id number] Mar, Dental examination Z01.20 [facility] [address] [id number] [address] [place] [address] [id number] Mar, Encounter for dental examina tion and cleaning without abnormal findings Z01.20 [facility] [address] [id number] [address] [place] [phone] 05 Jan, 2017 [facility] [address] [id number] [address] [place] [phone] Dec, Developmental disorder F89 a nd Anxiety F41.9 [facility] [address] [id number] [address] [place] [address] [id number] Dec, Encounter for dental examina tion and cleaning without abnormal findings Z01.20 [facility] [address] [id number] [address] [place] [phone] Sep, Encounter for immunization Z 23 [facility] [address] [facility] [id number] [address] [place] [phone] 08 Sep, 2016 Prostate cancer screening Z1 2.5 and Hyperlipidemia, unspecified hyperlipidemia E78.5 [facility] [address] [facility] [id number] [address] [place] [phone] Sep, Annual physical exam Z00.00 ; Encounter for immunization Z23 ; Essential hypertension I10 ; Hyperlipidemia, unspecified hyperlipidemia E78.5 ; Anxiety F41.9 ; Prostate cancer screening Z12.5 and Nicotine abuse Z72.0 [address] [facility] [facility] [id number] [address] [place] [phone] Aug, [facility] [address] [facility] [address] [facility] [id number] [address] [place] [phone] Jul, Urinary incontinence, unspec ified type R32 [facility] [address] [id number] [place] [address] [id number] Jul, Dental examination Z01.20 [address] [phone] Jul, Urinary incontinence, unspec ified type R32 [facility] [address] [id number] [address] [place] [phone] Jul, Anxiety F41.9 and Developmen oscar disorder F89 [facility] [address] [id number] [address] [place] [address] [phone] May, Dental examination Z01.[id number] [place] [address] [id number] Apr, Encounter for dental examination Z01.20 [facility] [address] [id number] [address] [place] [address] [id number] Apr, Encounter for dental examina tion and cleaning without abnormal findings Z01.20 [facility] [address] [facility] [id number] [address] [place] [phone] Mar, Developmental disorder F89 a nd Anxiety F41.9 [facility] [address] [id number] [address] [place] [address] [phone] February, Dental examination Z01.20 [facility] [address] [facility] [address] [facility] [id number] [address] [place] [phone] February, Essential hypertension I10 [facility] [address] [facility] [id number] [address] [place] [phone] February, Arthralgia M25.50 [facility] [address] [id number] [address] [place] [address] [id number] Jan, Encounter for dental examina tion and cleaning without abnormal findings Z01.20 [facility] [address] [facility] [address] [facility] [id number] [address] [place] [phone] Dec, [facility] [address] [facility] [address] [facility] [id number] [address] [place] [phone] Nov, Anxiety F41.9 and Developmen oscar disorder F89 [facility] [id number] [address] [place] [phone] Nov, [facility] [address] [id number] [address] [place] [phone] Nov, [facility] [address] [address] [facility] [id number] [address] [place] [phone] Oct, Hyperlipidemia, unspecified hyperlipidemia E78.5 [facility] [id number] [address] [place] [id number] Oct, Essential hypertension I10 ; Hyperlipidemia, unspecified hyperlipidemia E78.5 and Prostate cancer screening Z12.5 [facility] [id number] [address] [place] [phone] Oct, Essential hypertension I10 ; Hyperlipidemia, unspecified hyperlipidemia E78.5 ; Nicotine abuse Z72.0 ; Anxiety F41.9 ; Developmental disorder F89 and Prostate cancer screening Z12.5 [facility] [address] [address] [facility] [id number] [address] [place] [phone] Aug, Anxiety F41.9 and Developmen oscar disorder F89 [facility] [address] [address] [facility] [id number] [address] [place] [phone] Aug, Essential hypertension I10 a nd Encounter for immunization Z23 [facility] [address] [facility] [id number] [address] [place] [phone] 04 Aug, 2015 Prostate cancer screening Z1 2.5 [facility] [address] [id number] [address] [place] [phone] 29 Jun, 2015 Hypertension 401.9 [facility] [id number] [address] [place] [id number] 18 Jun, 2015 [facility] [address] [id number] May, Impulse control disorder, un specified 312.30 ; Generalized anxiety disorder 300.02 ; Other specified pervasive developmental disorders, 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 and 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 [facility] [address] [id number] [address] [place] [phone] Mar, Hypertension 401.9 [facility] [address] [id number] [address] [place] [address] [id number] Mar, Dental examination V72.2 [facility] [address] [id number] [address] [place] [phone] February, Hypertension 401.9 and Hyper lipidemia 272.4 [facility] [address] [id number] [address] [place] [phone] February, [facility] [id number] [address] [place] [phone] February, Generalized anxiety disorder 300.02 ; Impulse control disorder 312.30 ; 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 and Benign essential HTN 401.1 [facility] [id number] [place] [id number] Jan, [facility] [id number] [place] [phone] Jan, [facility] [address] [id number] [address] [place] [id number] Dec, [facility] [address] [id number] 18 Dec, 2014 [facility] [address] [id number] [address] [place] [address], [place] [address] 17 Dec, 2014 [facility] [address] [id number] [address] [place] [address], [place] [address] 17 Dec, 2014 [facility] [address] [id number] [address] [place] [address], [place] [address] 16 Dec, 2014 [facility] [address] [id number] [address] [place] [phone] 16 Dec, 2014 [facility] [address] [id number] [address] [place] [address], [place] [address] 09 Dec, 2014 [facility] [address] [id number] [address] [place] [phone] 09 Dec, 2014 [facility] [address] [id number] [address] [place] [address], [place] [address] 20 Nov, 2014 [facility] [address] [id number] [address] [place] [phone] 20 Nov, 2014 [facility] [address] [id number] [address] [place] [id number] 19 Nov, 2014 [facility] [address] [id number] [address] [place] [phone] 19 Nov, 2014 [facility] [address] [id number] [address] [place] [address], [place] [address] 18 Nov, 2014 [facility] [address] [id number] [address] [place] [phone] 18 Nov, 2014 [facility] [address] [id number] [address] [place] [phone] 17 Nov, 2014 [facility] [address] [id number] [address] [place] [phone] 17 Nov, 2014 [facility] [address] [id number] [address] [place] [phone] 15 Oct, 2014 [facility] [address] [id number] [address] [place] [address], [place] [address] Oct, [facility] [address] [id number] [address] [place] [address], [place] [address] Oct, [facility] [address] [id number] [address] [place] [address], [place] [address] Oct, [facility] [address] [id number] [address] [place] [address], [place] [address] Oct, [facility] [address] [id number] [address] [place] [address], [place] [address] Oct, [facility] [address] [id number] [address] [place] [address], [place] [address] Sep, [facility] [address] [id number] [address] [place] [address], [place] [address] Sep, [facility] [address] [id number] [address] [place] [address], [place] [address] Sep, [facility] [address] [id number] [address] [place] [address], [place] [address] Sep, [facility] [address] [id number] [address] [place] [address], [place] [address] Sep, [facility] [address] [id number] [address] [place] [address], [place] [address] Sep, [facility] [address] [id number] [address] [place] [address], [place] [address] Aug, [facility] [address] [id number] [address] [place] [address], [place] [address] Aug, [facility] [address] [id number] [address] [place] [address], [place] [address] Aug, [facility] [address] [id number] [address] [place] [address], [place] [address] Aug, [facility] [address] [id number] [address] [place] [address], [place] [address] Jul, [facility] [address] [id number] [address] [place] [address], [place] [address] Jul, [facility] [address] [id number] [address] [place] [address], [place] [address] May, [facility] [address] [id number] [address] [place] [address], [place] [address] May, [facility] [address] [id number] [address] [place] [address], [place] [address] Apr, [facility] [address] [id number] [address] [place] [address], [place] [address] Apr, [facility] [address] [id number] [address] [place] [address], [place] [address] Mar, [facility] [address] [id number] [address] [place] [address], [place] [address] Mar, [facility] [address] [id number] [address] [place] [address], [place] [address] Mar, [facility] [address] [id number] [address] [place] [address], [place] [address] Mar, [facility] [address] [id number] [address] [place] [address], [place] [address] February, [facility] [address] [id number] [address] [place] [address], [place] [address] February, [facility] [address] [id number] [address] [place] [address], [place] [address] Jan, [facility] [address] [id number] [address] [place] [address], [place] [address] Jan, [facility] [address] [id number] [address] [place] [address], [place] [address] Oct, [facility] [address] [id number] [address] [place] [address], [place] [address] Oct, [facility] [address] [id number] [address] [place] [address], [place] [address] Oct, [facility] [address] [id number] [address] [place] [address], [place] [address] Oct, [facility] [address] [id number] [address] [place] [address], [place] [address] Oct, [facility] [address] [id number] [address] [place] [address], [place] [address] Oct, [facility] [address] [id number] [address] [place] [address], [place] [address] Oct, [facility] [address] [id number] [address] [place] [address], [place] [address] Oct, [facility] [address] [id number] [address] [place] [address], [place] [address] Oct, [facility] [address] [id number] [address] [place] [address], [place] [address] Dec, [facility] [address] [id number] [address] [place] [address], [place] [address] Sep, [facility] [address] [id number] [address] [place] [address], [place] [address] Sep, [facility] [address] [id number] [address] [place] [address], [place] [address] May, [facility] [address] [id number] [address] [place] [address], [place] [phone] Apr, [facility] [address] [id number] [address] [place] [address], [place] [phone] Apr, [facility] [address] [id number] [address] [place] [address], [place] [address] Apr, [facility] [address] [id number] [place] [id number] February, [facility] [address] [id number] [address] [place] [address], [place] [address] Jan, [facility] [address] [id number] [address] [place] [phone] Dec, [facility] [address] [id number] [address] [place] [phone] Sep, [facility] [address] [id number] [address] [place] [phone] Sep, [facility] [address] [id number] [address] [place] [phone] Aug, [facility] [address] [id number] [address] [place] [phone] Aug, [facility] [address] [id number] [address] [place] [phone] Jul, [facility] [address] [id number] [address] [place] [phone] Mar, [facility] [address] [id number] [address] [place] [phone] Mar, [facility] [address] [id number] [address] [place] [phone] Mar, IMMUNIZATIONS Vaccine Route Administration Date Status FLULAVAL (3 & UP) 2013 Unknown Sep 25, 2014 Administe red SOCIAL HISTORY Never Assessed REASON FOR VISIT PLAN OF CARE VITAL SIGNS Height 68 in 2014-09-25 Weight 159 lbs 2014-09-25 Temperature 98.8 degrees Fahrenheit 2014-09-25 Heart Rate 70 bpm 2014-09-25 Respiratory Rate 28 2014-09-25 Blood pressure systolic 148 mmHg 2014-09-25 Blood pressure diastolic 82 mmHg 2014-09-25 MEDICATIONS Unknown Medications RESULTS No Results PROCEDURES No Known procedures INSTRUCTIONS MEDICATIONS ADMINISTERED No Known Medications MEDICAL (GENERAL) HISTORY Type Description Date Medical History hyperlipidemia Medical History hypertension Medical History mood disorder Medical History mild mental retardation Medical History insomnia Medical History anxiety Medical History Asperger's Surgical History laser eye surgery
--- OUTSIDE RECORDS SUMMARY | 2020-01-04 10:16 | XMS REPORT ---
Author Author Anton CHAVEZ Organization [facility] Address [address] [place] [address] Care Team Providers Care Muffler Installer Name Role Phone SCOTTMIKEARIEL Unavailable PROBLEMS Type Condition ICD9-CM Code [id number] Code Onset Dates Condition S tatus SNOMED Code Problem Essential hypertension I10 Active 76959412 Problem Urinary incontinence, unspecified type R32 Active 310110493 Problem Hyperglycemia R73.9 Active 885707 07 Problem Anxiety F41.9 Active 82388073 Problem Hyperlipidemia, unspecified hyperlipidemia E78.5 Active 37049530 Problem Nicotine abuse Z72.0 Active 87669 008 Problem Developmental disorder F89 Active 0464187 ALLERGIES No Information ENCOUNTERS Encounter Location Date Diagnosis [facility] [address] [facility] [id number] [address] [place] [address] May, [facility] [address] [facility] [id number] [address] [place] [address] Apr, [facility] [address] [facility] [id number] [address] [place] [address] February, [facility] [address] [facility] [id number] [address] [place] [address] February, Anxiety F41.9 ; Developmenta l disorder F89 and Nicotine abuse Z72.0 [facility] [address] [facility] [id number] [address] [place] [address] February, Essential hypertension I10 a nd Impacted cerumen, bilateral H61.23 [facility] [address] [id number] [address] [place] [address] [id number] Dec, Oral health maintenance stat us requiring routine preventive dental care K08.9 [facility] [address] [facility] [id number] [address] [place] [phone] Dec, Developmental disorder F89 a nd Anxiety F41.9 [facility] [address] [facility] [id number] [address] [place] [address] Nov, [facility] [address] [facility] [id number] [address] [place] [address] Nov, Essential hypertension I10 [facility] [address] [facility] [id number] [address] [place] [address] Nov, Essential hypertension I10 [facility] [address] [id number] [address] [place] [address] Nov, Developmental disorder F89 a nd Anxiety F41.9 [facility] [address] [facility] [id number] [address] [place] [id number] Nov, [facility] [address] [facility] [id number] [address] [place] [address] Nov, Essential hypertension I10 [facility] [address] [facility] [id number] [address] [place] [address] Oct, Elevated blood sugar R73.09 [facility] [address] [facility] [id number] [address] [place] [address] Oct, Elevated blood sugar R73.09 [place] [id number] [facility] [id number] [address] [place] [address] Oct, Encounter for Medicare annua l wellness exam Z00.00 ; Screening PSA (prostate specific antigen) Z12.5 ; Essential hypertension I10 ; Hyperlipidemia, unspecified hyperlipidemia E78.5 ; Nicotine abuse Z72.0 ; Anxiety F41.9 ; Bilateral impacted cerumen H61.23 and Developmental disorder F89 [facility] [address] [facility] [id number] [address] [place] [address] Oct, Encounter for Medicare annua l wellness exam Z00.00 ; Essential hypertension I10 ; Hyperlipidemia, unspecified hyperlipidemia E78.5 ; Nicotine abuse Z72.0 ; Anxiety F41.9 ; Developmental disorder F89 and Screening PSA (prostate specific antigen) Z12.5 [facility] [address] [id number] [address] [place] [address] [id number] Sep, Dental examination Z01.20 [facility] [address] [id number] [address] [place] [id number] 16 Jul, 2018 Developmental disorder F89 a nd Anxiety F41.9 [facility] [address] [id number] [address] [place] [phone] Jun, Essential hypertension I10 ; Nicotine abuse Z72.0 and Encounter for immunization Z23 [facility] [address] [id number] [address] [place] [address] [id number] Apr, Dental examination Z01.20 [facility] [address] [id number] [address] [place] [address] [id number] Jan, Dental examination Z01.20 [facility] [address] [facility] [id number] [address] [place] [address] Dec, Developmental disorder F89 a nd Anxiety F41.9 [facility] [address] [facility] [id number] [address] [place] [id number] 14 Nov, 2017 Essential hypertension I10 ; Hyperlipidemia, unspecified hyperlipidemia E78.5 ; Nicotine abuse Z72.0 and Bilateral impacted cerumen H61.23 [facility] [address] [facility] [id number] [address] [place] [address] Oct, [facility] [address] [id number] [address] [place] [address] [id number] Sep, Encounter for dental exam an d cleaning w/o abnormal findings Z01.20 [facility] [address] [facility] [id number] [address] [place] [address] Sep, Medicare annual wellness vis it, initial Z00.00 and Encounter for immunization Z23 [facility] [address] [facility] [id number] [address] [place] [address] Aug, Encounter for immunization Z 23 ; Developmental disorder F89 and Anxiety F41.9 [facility] [address] [id number] [address] [place] [address] [id number] 13 Jun, 2017 Encounter for dental examina tion and cleaning without abnormal findings Z01.20 [facility] [address] [id number] [address] [place] [id number] 27 Apr, 2017 Anxiety F41.9 and Developmen oscar disorder F89 [facility] [address] [facility] [id number] [address] [place] [phone] 17 Apr, 2017 Essential hypertension I10 a nd Nicotine abuse Z72.[address] [facility] [address] [address] [address] [id number] [id number] Mar, Dental examination Z01.20 [facility] [address] [id number] [address] [place] [address] [id number] 21 Mar, 2017 Encounter for dental examina tion and cleaning without abnormal findings Z01.20 [place] [address] [facility] [id number] [address] [place] [phone] 05 Jan, 2017 [facility] [address] [facility] [id number] [address] [place] [phone] 30 Dec, 2016 Developmental disorder F89 a nd Anxiety F41.9 [facility] [address] [id number] [address] [place] [address] [id number] Dec, Encounter for dental examina tion and cleaning without abnormal findings Z01.20 [place] [id number] [facility] [id number] [address] [place] [id number] 15 Sep, 2016 Encounter for immunization Z 23 [facility] [address] [place] [id number] [address] [place] [phone] 08 Sep, 2016 Prostate cancer screening Z1 2.5 and Hyperlipidemia, unspecified hyperlipidemia E78.5 [place] [address] [place] [id number] [address] [place] [id number] 06 Sep, 2016 Annual physical exam Z00.00 ; Encounter for immunization Z23 ; Essential hypertension I10 ; Hyperlipidemia, unspecified hyperlipidemia E78.5 ; Anxiety F41.9 ; Prostate cancer screening Z12.5 and Nicotine abuse Z72.0 [place] [id number] [id number] [address] [place] [phone] Aug, [facility] [address] [id number] [address] [place] [address] Jul, Urinary incontinence, unspec ified type R32 [facility] [address] [id number] [address] [place] [address] [id number] Jul, Dental examination Z01.20 [facility] [address] [id number] [address] [place] [id number] Jul, Urinary incontinence, unspec ified type R32 [facility] [address] [id number] [address] [place] [phone] Jul, Anxiety F41.9 and Developmen oscar disorder F89 [facility] [address] [id number] [address] [place] [address] [id number] May, Dental examination Z01.[id number] [place] [address] [id number] Apr, Encounter for dental examination Z01.20 [facility] [address] [id number] [place] [address] [id number] Apr, Encounter for dental examina tion and cleaning without abnormal findings Z01.20 [facility] [address] [id number] [address] [place] [id number] Mar, Developmental disorder F89 a nd Anxiety F41.9 [facility] [address] [id number] [address] [place] [address] [id number] February, Dental examination Z01.20 [facility] [address] [id number] [address] [place] [address] February, Essential hypertension I10 [facility] [address] [id number] [address] [place] [id number] February, Arthralgia M25.50 [facility] [address] [id number] [address] [place] [address] [id number] Jan, Encounter for dental examina tion and cleaning without abnormal findings Z01.20 [facility] [address] [facility] [id number] [address] [place] [phone] Dec, [facility] [address] [place] [id number] [address] [place] [phone] Nov, Anxiety F41.9 and Developmen oscar disorder F89 [facility] [address] [place] [id number] [address] [place] [phone] Nov, [facility] [address] [place] [id number] [address] [place] [phone] Nov, [facility] [address] [place] [id number] [place] [phone] Oct, Hyperlipidemia, unspecified hyperlipidemia E78.5 [place] [address] [place] [id number] [address] [place] [id number] Oct, Essential hypertension I10 ; Hyperlipidemia, unspecified hyperlipidemia E78.5 and Prostate cancer screening Z12.5 [facility] [id number] [place] [address] Oct, Essential hypertension I10 ; Hyperlipidemia, unspecified hyperlipidemia E78.5 ; Nicotine abuse Z72.0 ; Anxiety F41.9 ; Developmental disorder F89 and Prostate cancer screening Z12.5 [facility] [address] [place] [id number] [address] [place] [address] Aug, Anxiety F41.9 and Developmen oscar disorder F89 [facility] [address] [place] [id number] [address] [place] [phone] Aug, Essential hypertension I10 a nd Encounter for immunization Z23 [facility] [address] [place] [id number] [address] [place] [phone] Aug, Prostate cancer screening Z1 2.5 [facility] [address] [place] [id number] [address] [place] [id number] Jun, Hypertension 401.9 [facility] [address] [place] [id number] [address] [place] [phone] 18 Jun, 2015 [facility] [address] [id number] [address] [place] [address] May, Impulse control disorder, un specified 312.30 ; Generalized anxiety disorder 300.02 ; Other specified pervasive developmental disorders, 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 and 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 [facility] [address] [facility] [id number] [address] [place] [address] Mar, Hypertension 401.9 [facility] [address] [id number] [address] [place] [address] [id number] Mar, Dental examination V72.2 [facility] [address] [facility] [id number] [address] [place] [address] February, Hypertension 401.9 and Hyper lipidemia 272.4 [facility] [address] [facility] [id number] [address] [place] [id number] February, [facility] [address] [facility] [id number] [address] [place] [address] February, Generalized anxiety disorder 300.02 ; Impulse control disorder 312.30 ; 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 and Benign essential HTN 401.1 [facility] [address] [facility] [id number] [address] [place] [id number] Jan, [facility] [address] [facility] [id number] [address] [place] [phone] Jan, [facility] [address] [facility] [id number] [address] [place] [phone] Dec, [facility] [address] [facility] [id number] [address] [place] [id number] Dec, [facility] [address] [facility] [id number] [address] [place] [address] Dec, [facility] [address] [facility] [id number] [address] [place] [id number] 17 Dec, 2014 [facility] [address] [id number] [address] [place] [address], [place] [address] 16 Dec, 2014 [facility] [address] [id number] [address] [place] [address], [place] [address] 16 Dec, 2014 [facility] [address] [id number] [address] [place] [address], [place] [address] 09 Dec, 2014 [facility] [address] [id number] [address] [place] [address], [place] [address] Dec, [facility] [address] [id number] [address] [place] [address], [place] [address] 20 Nov, 2014 [facility] [address] [id number] [address] [place] [address], [place] [address] Nov, 2014 [facility] [address] [id number] [address] [place] [address], [place] [address] 19 Nov, 2014 [facility] [address] [id number] [address] [place] [address], [place] [address] Nov, [facility] [address] [id number] [address] [place] [address], [place] [address] 18 Nov, 2014 [facility] [address] [id number] [address] [place] [address], [place] [address] Nov, [facility] [address] [id number] [address] [place] [address], [place] [address] 17 Nov, 2014 [facility] [address] [id number] [address] [place] [address], [place] [address] Nov, [facility] [address] [id number] [address] [place] [address], [place] [address] Oct, [facility] [address] [id number] [address] [place] [address], [place] [address] Oct, [facility] [address] [id number] [address] [place] [address], [place] [address] Oct, [facility] [address] [id number] [address] [place] [phone] Oct, [facility] [address] [id number] [address] [place] [address], [place] [address] Oct, [facility] [address] [id number] [address] [place] [address], [place] [address] Oct, [facility] [address] [id number] [address] [place] [address], [place] [address] Sep, [facility] [address] [id number] [address] [place] [address], [place] [address] Sep, [facility] [address] [id number] [address] [place] [address], [place] [address] Sep, [facility] [address] [id number] [address] [place] [address], [place] [address] Sep, [facility] [address] [id number] [address] [place] [address], [place] [address] Sep, [facility] [address] [id number] [address] [place] [address], [place] [address] Sep, [facility] [address] [id number] [address] [place] [address], [place] [address] Aug, [facility] [address] [id number] [address] [place] [address], [place] [address] Aug, [facility] [address] [id number] [address] [place] [address], [place] [address] Aug, [facility] [address] [id number] [address] [place] [phone] Aug, [facility] [address] [id number] [address] [place] [address], [place] [address] Jul, [facility] [address] [id number] [address] [place] [address], [place] [address] Jul, [facility] [address] [id number] [address] [place] [address], [place] [address] May, [facility] [address] [id number] [address] [place] [address], [place] [address] May, [facility] [address] [id number] [address] [place] [address], [place] [address] Apr, [facility] [address] [id number] [address] [place] [address], [place] [address] Apr, [facility] [address] [id number] [address] [place] [address], [place] [address] Mar, [facility] [address] [id number] [address] [place] [address], [place] [address] Mar, [facility] [address] [id number] [address] [place] [address], [place] [address] Mar, [facility] [address] [id number] [address] [place] [address], [place] [address] Mar, [facility] [address] [id number] [address] [place] [address], [place] [address] February, [facility] [address] [id number] [address] [place] [address], [place] [address] February, [facility] [address] [id number] [address] [place] [address], [place] [address] Jan, [facility] [address] [id number] [address] [place] [address], [place] [address] Jan, [facility] [address] [id number] [address] [place] [address], [place] [address] Oct, [facility] [address] [id number] [address] [place] [address], [place] [address] Oct, [facility] [address] [id number] [address] [place] [address], [place] [address] Oct, [facility] [address] [id number] [address] [place] [address], [place] [address] Oct, [facility] [address] [id number] [address] [place] [address], [place] [address] Oct, [facility] [address] [id number] [address] [place] [address], [place] [address] Oct, [facility] [address] [id number] [address] [place] [address], [place] [address] Oct, [facility] [address] [id number] [address] [place] [address], [place] [address] Oct, [facility] [address] [id number] [address] [place] [address], [place] [address] Oct, [facility] [address] [id number] [address] [place] [address], [place] [address] Dec, [facility] [address] [id number] [address] [place] [address], [place] [address] Sep, [facility] [address] [id number] [address] [place] [address], [place] [address] Sep, [facility] [address] [id number] [address] [place] [address], [place] [address] May, [facility] [address] [id number] [address] [place] [address], [place] [address] Apr, [facility] [address] [id number] [address] [place] [address], [place] [address] Apr, [facility] [address] [id number] [address] [place] [address], [place] [address] Apr, [facility] [address] [id number] [place], [facility] [id number] February, [facility] [address] [id number] [address] [place] [address], [place] [address] Jan, [facility] [address] [id number] [address] [place] [address], [place] [address] Dec, [facility] [address] [id number] [address] [place] [address], [place] [address] Sep, [facility] [address] [id number] [address] [place] [address], [place] [address] Sep, [facility] [address] [id number] [address] [place] [id number] Aug, [facility] [address] [id number] [address] [place] [id number] Aug, [facility] [address] [id number] [address] [place] [id number] Jul, [facility] [address] [id number] [address] [place] [id number] Mar, [facility] [address] [id number] [address] [place] [id number] Mar, [facility] [address] [facility] [id number] [address] [place] [id number] Mar, IMMUNIZATIONS No Known Immunizations SOCIAL HISTORY Never Assessed REASON FOR VISIT PLAN OF CARE VITAL SIGNS Height 67.5 in 2014-09-13 Weight 151.38 lbs 2014-09-13 Temperature 97 degrees Fahrenheit 2014-09-13 Heart Rate 74 bpm 2014-09-13 Respiratory Rate 28 2014-09-13 Blood pressure systolic 146 mmHg 2014-09-13 Blood pressure diastolic 98 mmHg 2014-09-13 MEDICATIONS Unknown Medications RESULTS No Results PROCEDURES No Known procedures INSTRUCTIONS MEDICATIONS ADMINISTERED No Known Medications MEDICAL (GENERAL) HISTORY Type Description Date Medical History hyperlipidemia Medical History hypertension Medical History mood disorder Medical History mild mental retardation Medical History insomnia Medical History anxiety Medical History Asperger's Surgical History laser eye surgery
--- OUTSIDE RECORDS SUMMARY | 2020-01-04 10:16 | XMS REPORT ---
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 Name Role Phone SCOTTMIKEARIEL Unavailable PROBLEMS Type Condition ICD9-CM Code YSU44-CA Code Onset Dates Condition S tatus SNOMED Code Problem Essential hypertension I10 Active 43171883 Problem Urinary incontinence, unspecified type R32 Active 776300059 Problem Hyperglycemia R73.9 Active 136737 07 Problem Anxiety F41.9 Active 08779800 Problem Hyperlipidemia, unspecified hyperlipidemia E78.5 Active 68367198 Problem Nicotine abuse Z72.0 Active 59986 008 Problem Developmental disorder F89 Active [id number] ALLERGIES No Information ENCOUNTERS Encounter Location Date Diagnosis [facility] [place] [address] [facility] [id number] [address] [place] [phone] May, [facility] [place] [address] [facility] [id number] [address] [place] [phone] Apr, [facility] [place] [address] [facility] [id number] [address] [place] [phone] February, [facility] [place] [address] [facility] [id number] [address] [place] [id number] February, Anxiety F41.9 ; Developmenta l disorder F89 and Nicotine abuse Z72.0 [facility] [place] [address] [facility] [id number] [address] [place] [phone] February, Essential hypertension I10 a nd Impacted cerumen, bilateral H61.23 [facility] [address] [id number] [address] [place] [address] [id number] Dec, Oral health maintenance stat us requiring routine preventive dental care K08.9 [facility] [place] [address] [facility] [id number] [address] [place] [phone] Dec, Developmental disorder F89 a nd Anxiety F41.9 [facility] [place] [address] [facility] [id number] [address] [place] [phone] Nov, [facility] [place] [address] [facility] [id number] [address] [place] [phone] Nov, Essential hypertension I10 [facility] [place] [address] [facility] [id number] [address] [place] [phone] Nov, Essential hypertension I10 [facility] [place] [address] [id number] [address] [place] [phone] Nov, Developmental disorder F89 a nd Anxiety F41.9 [facility] [place] [address] [facility] [id number] [address] [place] [phone] Nov, [facility] [place] [address] [facility] [id number] [address] [place] [phone] Nov, Essential hypertension I10 [facility] [place] [address] [facility] [id number] [address] [place] [phone] Oct, Elevated blood sugar R73.09 [facility] [place] [address] [facility] [id number] [address] [place] [phone] Oct, Elevated blood sugar R73.09 [place] [id number] [facility] [id number] [address] [place] [phone] Oct, Encounter for Medicare annua l wellness exam Z00.00 ; Screening PSA (prostate specific antigen) Z12.5 ; Essential hypertension I10 ; Hyperlipidemia, unspecified hyperlipidemia E78.5 ; Nicotine abuse Z72.0 ; Anxiety F41.9 ; Bilateral impacted cerumen H61.23 and Developmental disorder F89 [facility] [place] [address] [facility] [id number] [address] [place] [phone] Oct, Encounter for Medicare annua l wellness exam Z00.00 ; Essential hypertension I10 ; Hyperlipidemia, unspecified hyperlipidemia E78.5 ; Nicotine abuse Z72.0 ; Anxiety F41.9 ; Developmental disorder F89 and Screening PSA (prostate specific antigen) Z12.5 [facility] [address] [id number] [address] [place] [address] [id number] Sep, Dental examination Z01.20 [facility] [place] [address] [id number] [address] [place] [phone] 16 Jul, 2018 Developmental disorder F89 a nd Anxiety F41.9 [facility] [place] [address] [id number] [address] [place] [phone] Jun, Essential hypertension I10 ; Nicotine abuse Z72.0 and Encounter for immunization Z23 [facility] [address] [id number] [address] [place] [address] [id number] Apr, Dental examination Z01.20 [facility] [address] [id number] [address] [place] [address] [id number] Jan, Dental examination Z01.20 [facility] [place] [address] [facility] [id number] [address] [place] [phone] Dec, Developmental disorder F89 a nd Anxiety F41.9 [facility] [place] [address] [facility] [id number] [address] [place] [phone] 14 Nov, 2017 Essential hypertension I10 ; Hyperlipidemia, unspecified hyperlipidemia E78.5 ; Nicotine abuse Z72.0 and Bilateral impacted cerumen H61.23 [facility] [place] [address] [facility] [id number] [address] [place] [phone] Oct, [facility] [address] [id number] [address] [place] [address] [id number] Sep, Encounter for dental exam an d cleaning w/o abnormal findings Z01.20 [facility] [place] [address] [facility] [id number] [address] [place] [phone] Sep, Medicare annual wellness vis it, initial Z00.00 and Encounter for immunization Z23 [facility] [place] [address] [facility] [id number] [address] [place] [phone] Aug, Encounter for immunization Z 23 ; Developmental disorder F89 and Anxiety F41.9 [facility] [address] [id number] [address] [place] [address] [id number] 13 Jun, 2017 Encounter for dental examina tion and cleaning without abnormal findings Z01.20 [facility] [place] [address] [id number] [address] [place] [phone] 27 Apr, 2017 Anxiety F41.9 and Developmen oscar disorder F89 [facility] [place] [address] [facility] [id number] [address] [place] [phone] 17 Apr, 2017 Essential hypertension I10 a nd Nicotine abuse Z72.0 [facility] [address] [id number] [id number] Mar, Dental examination Z01.20 [facility] [address] [id number] [address] [place] [address] [id number] 21 Mar, 2017 Encounter for dental examina tion and cleaning without abnormal findings Z01.20 [place] [address] [facility] [id number] [address] [place] [phone] 05 Jan, 2017 [facility] [place] [address] [facility] [id number] [address] [place] [phone] 30 Dec, 2016 Developmental disorder F89 a nd Anxiety F41.9 [facility] [address] [id number] [address] [place] [address] [id number] Dec, Encounter for dental examina tion and cleaning without abnormal findings Z01.20 [place] [id number] [facility] [id number] [address] [place] [phone] 15 Sep, 2016 Encounter for immunization Z 23 [facility] [place] [address] [place] [id number] [address] [place] [phone] 08 Sep, 2016 Prostate cancer screening Z1 2.5 and Hyperlipidemia, unspecified hyperlipidemia E78.5 [place] [address] [place] [id number] [address] [place] [phone] 06 Sep, 2016 Annual physical exam Z00.00 ; Encounter for immunization Z23 ; Essential hypertension I10 ; Hyperlipidemia, unspecified hyperlipidemia E78.5 ; Anxiety F41.9 ; Prostate cancer screening Z12.5 and Nicotine abuse Z72.0 [place] [address] [id number] [address] [place] [phone] Aug, [facility] [place] [address] [id number] [address] [place] [phone] Jul, Urinary incontinence, unspec ified type R32 [facility] [address] [id number] [address] [place] [address] [id number] Jul, Dental examination Z01.20 [facility] [place] [address] [id number] [address] [place] [phone] Jul, Urinary incontinence, unspec ified type R32 [facility] [place] [address] [id number] [address] [place] [phone] Jul, Anxiety F41.9 and Developmen oscar disorder F89 [facility] [address] [id number] [address] [place] [address] [id number] May, Dental examination Z01.[id number] [place] [address] [id number] Apr, Encounter for dental examination Z01.20 [facility] [address] [id number] [place] [address] [id number] Apr, Encounter for dental examina tion and cleaning without abnormal findings Z01.20 [facility] [place] [address] [id number] [address] [place] [phone] Mar, Developmental disorder F89 a nd Anxiety F41.9 [facility] [address] [id number] [address] [place] [address] [id number] February, Dental examination Z01.20 [facility] [place] [address] [id number] [address] [place] [phone] February, Essential hypertension I10 [facility] [place] [address] [id number] [address] [place] [phone] February, Arthralgia M25.50 [facility] [address] [id number] [address] [place] [address] [id number] Jan, Encounter for dental examina tion and cleaning without abnormal findings Z01.20 [facility] [place] [address] [facility] [id number] [address] [place] [phone] Dec, [facility] [place] [address] [place] [id number] [address] [place] [phone] Nov, Anxiety F41.9 and Developmen oscar disorder F89 [facility] [place] [address] [place] [id number] [address] [place] [phone] Nov, [facility] [place] [address] [place] [id number] [address] [place] [phone] Nov, [facility] [place] [address] [place] [id number] [place] [phone] Oct, Hyperlipidemia, unspecified hyperlipidemia E78.5 [place] [address] [place] [id number] [address] [place] [phone] Oct, Essential hypertension I10 ; Hyperlipidemia, unspecified hyperlipidemia E78.5 and Prostate cancer screening Z12.5 [facility] [place] [id number] [place] [phone] Oct, Essential hypertension I10 ; Hyperlipidemia, unspecified hyperlipidemia E78.5 ; Nicotine abuse Z72.0 ; Anxiety F41.9 ; Developmental disorder F89 and Prostate cancer screening Z12.5 [facility] [place] [address] [place] [id number] [address] [place] [phone] Aug, Anxiety F41.9 and Developmen oscar disorder F89 [facility] [place] [address] [place] [id number] [address] [place] [phone] Aug, Essential hypertension I10 a nd Encounter for immunization Z23 [facility] [place] [address] [place] [id number] [address] [place] [phone] Aug, Prostate cancer screening Z1 2.5 [facility] [place] [address] [place] [id number] [address] [place] [phone] Jun, Hypertension 401.9 [facility] [place] [address] [place] [id number] [address] [place] [phone] 18 Jun, 2015 [facility] [place] [address] [id number] [address] [place] [phone] May, Impulse control disorder, un specified 312.30 ; Generalized anxiety disorder 300.02 ; Other specified pervasive developmental disorders, 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 and 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 [facility] [place] [address] [facility] [id number] [address] [place] [phone] Mar, Hypertension 401.9 [facility] [address] [id number] [address] [place] [address] [id number] Mar, Dental examination V72.2 [facility] [place] [address] [facility] [id number] [address] [place] [phone] February, Hypertension 401.9 and Hyper lipidemia 272.4 [facility] [place] [address] [facility] [id number] [address] [place] [phone] February, [facility] [place] [address] [facility] [id number] [address] [place] [phone] February, Generalized anxiety disorder 300.02 ; Impulse control disorder 312.30 ; 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 and Benign essential HTN 401.1 [facility] [place] [address] [facility] [id number] [address] [place] [phone] Jan, [facility] [place] [address] [facility] [id number] [address] [place] [phone] Jan, [facility] [place] [address] [facility] [id number] [address] [place] [phone] Dec, [facility] [place] [address] [facility] [id number] [address] [place] [phone] Dec, [facility] [place] [address] [facility] [id number] [address] [place] [phone] Dec, [facility] [place] [address] [facility] [id number] [address] [place] [phone] 17 Dec, 2014 [facility] [place] [address] [id number] [address] [place] [address], [place] [address] 16 Dec, 2014 [facility] [address] [id number] [address] [place] [address], [place] [address] 16 Dec, 2014 [facility] [address] [id number] [address] [place] [address], [place] [phone] 09 Dec, 2014 [facility] [address] [id number] [address] [place] [address], [place] [address] Dec, [facility] [address] [id number] [address] [place] [address], [place] [phone] 20 Nov, 2014 [facility] [address] [id number] [address] [place] [address], [place] [address] Nov, 2014 [facility] [address] [id number] [address] [place] [address], [place] [address] 19 Nov, 2014 [facility] [address] [id number] [address] [place] [address], [place] [address] Nov, [facility] [address] [id number] [address] [place] [address], [place] [address] 18 Nov, 2014 [facility] [address] [id number] [address] [place] [address], [place] [address] Nov, [facility] [address] [id number] [address] [place] [address], [place] [address] 17 Nov, 2014 [facility] [address] [id number] [address] [place] [address], [place] [address] Nov, [facility] [address] [id number] [address] [place] [address], [place] [address] Oct, [facility] [address] [id number] [address] [place] [address], [place] [address] Oct, [facility] [address] [id number] [address] [place] [address], [place] [address] Oct, [facility] [address] [id number] [address] [place] [phone] Oct, [facility] [address] [id number] [address] [place] [address], [place] [address] Oct, [facility] [address] [id number] [address] [place] [address], [place] [address] Oct, [facility] [address] [id number] [address] [place] [address], [place] [address] Sep, [facility] [address] [id number] [address] [place] [address], [place] [address] Sep, [facility] [address] [id number] [address] [place] [address], [place] [address] Sep, [facility] [address] [id number] [address] [place] [address], [place] [address] Sep, [facility] [address] [id number] [address] [place] [address], [place] [address] Sep, [facility] [address] [id number] [address] [place] [address], [place] [address] Sep, [facility] [address] [id number] [address] [place] [address], [place] [address] Aug, [facility] [address] [id number] [address] [place] [address], [place] [address] Aug, [facility] [address] [id number] [address] [place] [address], [place] [address] Aug, [facility] [address] [id number] [address] [place] [phone] Aug, [facility] [address] [id number] [address] [place] [address], [place] [address] Jul, [facility] [address] [id number] [address] [place] [address], [place] [address] Jul, [facility] [address] [id number] [address] [place] [address], [place] [address] May, [facility] [address] [id number] [address] [place] [address], [place] [address] May, [facility] [address] [id number] [address] [place] [address], [place] [address] Apr, [facility] [address] [id number] [address] [place] [address], [place] [address] Apr, [facility] [address] [id number] [address] [place] [address], [place] [address] Mar, [facility] [address] [id number] [address] [place] [address], [place] [address] Mar, [facility] [address] [id number] [address] [place] [address], [place] [address] Mar, [facility] [address] [id number] [address] [place] [address], [place] [address] Mar, [facility] [address] [id number] [address] [place] [address], [place] [address] February, [facility] [address] [id number] [address] [place] [address], [place] [address] February, [facility] [address] [id number] [address] [place] [address], [place] [address] Jan, [facility] [address] [id number] [address] [place] [address], [place] [address] Jan, [facility] [address] [id number] [address] [place] [address], [place] [address] Oct, [facility] [address] [id number] [address] [place] [address], [place] [address] Oct, [facility] [address] [id number] [address] [place] [address], [place] [address] Oct, [facility] [address] [id number] [address] [place] [address], [place] [address] Oct, [facility] [address] [id number] [address] [place] [address], [place] [address] Oct, [facility] [address] [id number] [address] [place] [address], [place] [address] Oct, [facility] [address] [id number] [address] [place] [address], [place] [address] Oct, [facility] [address] [id number] [address] [place] [address], [place] [address] Oct, [facility] [address] [id number] [address] [place] [address], [place] [address] Oct, [facility] [address] [id number] [address] [place] [address], [place] [address] Dec, [facility] [address] [id number] [address] [place] [address], [place] [address] Sep, [facility] [address] [id number] [address] [place] [address], [place] [address] Sep, [facility] [address] [id number] [address] [place] [address], [place] [address] May, [facility] [address] [id number] [address] [place] [address], [place] [address] Apr, [facility] [address] [id number] [address] [place] [address], [place] [address] Apr, [facility] [address] [id number] [address] [place] [address], [place] [address] Apr, [facility] [address] [id number] [place] [id number] February, [facility] [address] [id number] [address] [place] [address], [place] [address] Jan, [facility] [address] [id number] [address] [place] [address], [place] [address] Dec, [facility] [address] [id number] [address] [place] [address], [place] [address] Sep, [facility] [address] [id number] [address] [place] [address], [place] [address] Sep, [facility] [place] [address] [id number] [address] [place] [id number] Aug, [facility] [place] [address] [id number] [address] [place] [address] Aug, [facility] [place] [address] [facility] [id number] [address] [place] [phone] Jul, [facility] [place] [address] [facility] [id number] [address] [place] [phone] Mar, [facility] [place] [address] [facility] [id number] [address] [place] [phone] Mar, [facility] [place] [address] [facility] [id number] [address] [place] [phone] Mar, IMMUNIZATIONS No Known Immunizations SOCIAL HISTORY Never Assessed REASON FOR VISIT PLAN OF CARE VITAL SIGNS Height 67.5 in 2014-06-14 Temperature 98.3 degrees Fahrenheit 2014-06-14 Heart Rate 86 bpm 2014-06-14 Blood pressure systolic 140 mmHg 2014-06-14 Blood pressure diastolic 82 mmHg 2014-06-14 MEDICATIONS Unknown Medications RESULTS No Results PROCEDURES No Known procedures INSTRUCTIONS MEDICATIONS ADMINISTERED No Known Medications MEDICAL (GENERAL) HISTORY Type Description Date Medical History hyperlipidemia Medical History hypertension Medical History mood disorder Medical History mild mental retardation Medical History insomnia Medical History anxiety Medical History Asperger's Surgical History laser eye surgery
--- OUTSIDE RECORDS SUMMARY | 2020-01-04 10:16 | XMS REPORT ---
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 Name Role Phone SCOTTMIKEARIEL Unavailable PROBLEMS Type Condition ICD9-CM Code ONH67-OR Code Onset Dates Condition S tatus SNOMED Code Problem Essential hypertension I10 Active 65198973 Problem Urinary incontinence, unspecified type R32 Active 731612629 Problem Hyperglycemia R73.9 Active 172621 07 Problem Anxiety F41.9 Active 50262575 Problem Hyperlipidemia, unspecified hyperlipidemia E78.5 Active 42459081 Problem Nicotine abuse Z72.0 Active 13363 008 Problem Developmental disorder F89 Active 0849930 ALLERGIES No Information ENCOUNTERS Encounter Location Date Diagnosis [facility] [address] [facility] [id number] [address] [place] [phone] May, [facility] [address] [facility] [id number] [address] [place] [phone] Apr, [facility] [address] [facility] [id number] [address] [place] [phone] February, [facility] [address] [facility] [id number] [address] [place] [phone] February, Anxiety F41.9 ; Developmenta l disorder F89 and Nicotine abuse Z72.0 [facility] [address] [facility] [id number] [address] [place] [address] February, Essential hypertension I10 a nd Impacted cerumen, bilateral H61.23 [facility] [address] [id number] [address] [place] [address] [id number] Dec, Oral health maintenance stat us requiring routine preventive dental care K08.9 [facility] [address] [facility] [id number] [address] [place] [phone] Dec, Developmental disorder F89 a nd Anxiety F41.9 [facility] [address] [facility] [id number] [address] [place] [phone] Nov, [facility] [address] [facility] [id number] [address] [place] [address] Nov, Essential hypertension I10 [facility] [address] [facility] [id number] [address] [place] [phone] Nov, Essential hypertension I10 [facility] [address] [id number] [address] [place] [phone] Nov, Developmental disorder F89 a nd Anxiety F41.9 [facility] [address] [facility] [id number] [address] [place] [phone] Nov, [facility] [address] [facility] [id number] [address] [place] [phone] Nov, Essential hypertension I10 [facility] [address] [facility] [id number] [address] [place] [phone] Oct, Elevated blood sugar R73.09 [facility] [address] [facility] [id number] [address] [place] [address] Oct, Elevated blood sugar R73.09 [place] [id number] [facility] [id number] [address] [place] [address] Oct, Encounter for Medicare annua l wellness exam Z00.00 ; Screening PSA (prostate specific antigen) Z12.5 ; Essential hypertension I10 ; Hyperlipidemia, unspecified hyperlipidemia E78.5 ; Nicotine abuse Z72.0 ; Anxiety F41.9 ; Bilateral impacted cerumen H61.23 and Developmental disorder F89 [facility] [address] [facility] [id number] [address] [place] [address] Oct, Encounter for Medicare annua l wellness exam Z00.00 ; Essential hypertension I10 ; Hyperlipidemia, unspecified hyperlipidemia E78.5 ; Nicotine abuse Z72.0 ; Anxiety F41.9 ; Developmental disorder F89 and Screening PSA (prostate specific antigen) Z12.5 [facility] [address] [id number] [address] [place] [address] [id number] Sep, Dental examination Z01.20 [facility] [address] [id number] [address] [place] [phone] 16 Jul, 2018 Developmental disorder F89 a nd Anxiety F41.9 [facility] [address] [id number] [address] [place] [phone] Jun, Essential hypertension I10 ; Nicotine abuse Z72.0 and Encounter for immunization Z23 [facility] [address] [id number] [address] [place] [id number] Apr, Dental examination Z01.20 [facility] [address] [id number] [address] [place] [address] [id number] Jan, Dental examination Z01.20 [facility] [address] [facility] [id number] [address] [place] [phone] Dec, Developmental disorder F89 a nd Anxiety F41.9 [facility] [address] [facility] [id number] [address] [place] [phone] 14 Nov, 2017 Essential hypertension I10 ; Hyperlipidemia, unspecified hyperlipidemia E78.5 ; Nicotine abuse Z72.0 and Bilateral impacted cerumen H61.23 [facility] [address] [facility] [id number] [address] [place] [address] Oct, [facility] [address] [id number] [address] [place] [address] [id number] Sep, Encounter for dental exam an d cleaning w/o abnormal findings Z01.20 [facility] [address] [facility] [id number] [address] [place] [phone] Sep, Medicare annual wellness vis it, initial Z00.00 and Encounter for immunization Z23 [facility] [address] [facility] [id number] [address] [place] [phone] Aug, Encounter for immunization Z 23 ; Developmental disorder F89 and Anxiety F41.9 [facility] [address] [id number] [address] [place] [address] [id number] 13 Jun, 2017 Encounter for dental examina tion and cleaning without abnormal findings Z01.20 [facility] [address] [id number] [address] [place] [phone] 27 Apr, 2017 Anxiety F41.9 and Developmen oscar disorder F89 [facility] [address] [facility] [id number] [address] [place] [phone] 17 Apr, 2017 Essential hypertension I10 a nd Nicotine abuse Z72.0 [facility] [address] [id number] [id number] Mar, Dental examination Z01.20 [facility] [address] [id number] [address] [place] [address] [id number] 21 Mar, 2017 Encounter for dental examina tion and cleaning without abnormal findings Z01.20 [place] [address] [facility] [id number] [address] [place] [phone] 05 Jan, 2017 [facility] [address] [facility] [id number] [address] [place] [phone] 30 Dec, 2016 Developmental disorder F89 a nd Anxiety F41.9 [facility] [address] [id number] [address] [place] [address] [id number] Dec, Encounter for dental examina tion and cleaning without abnormal findings Z01.20 [place] [id number] [facility] [id number] [address] [place] [phone] 15 Sep, 2016 Encounter for immunization Z 23 [facility] [address] [place] [id number] [address] [place] [phone] 08 Sep, 2016 Prostate cancer screening Z1 2.5 and Hyperlipidemia, unspecified hyperlipidemia E78.5 [place] [address] [place] [id number] [address] [place] [phone] 06 Sep, 2016 Annual physical exam Z00.00 ; Encounter for immunization Z23 ; Essential hypertension I10 ; Hyperlipidemia, unspecified hyperlipidemia E78.5 ; Anxiety F41.9 ; Prostate cancer screening Z12.5 and Nicotine abuse Z72.0 [place] [address] [id number] [address] [place] [phone] Aug, [facility] [address] [id number] [address] [place] [phone] Jul, Urinary incontinence, unspec ified type R32 [facility] [address] [id number] [address] [place] [address] [phone] Jul, Dental examination Z01.20 [facility] [address] [id number] [address] [place] [phone] Jul, Urinary incontinence, unspec ified type R32 [facility] [address] [id number] [address] [place] [phone] Jul, Anxiety F41.9 and Developmen oscar disorder F89 [facility] [address] [id number] [address] [place] [address] [id number] May, Dental examination Z01.[id number] [place] [address] [id number] Apr, Encounter for dental examination Z01.20 [facility] [id number] [place] [address] [phone] Apr, Encounter for dental examina tion and cleaning without abnormal findings Z01.20 [facility] [address] [id number] [address] [place] [phone] Mar, Developmental disorder F89 a nd Anxiety F41.9 [facility] [address] [id number] [address] [place] [address] [id number] February, Dental examination Z01.20 [facility] [address] [id number] [address] [place] [phone] February, Essential hypertension I10 [facility] [address] [id number] [address] [place] [phone] February, Arthralgia M25.50 [facility] [address] [id number] [address] [place] [address] [id number] Jan, Encounter for dental examina tion and cleaning without abnormal findings Z01.20 [facility] [address] [facility] [id number] [address] [place] [phone] Dec, [facility] [address] [place] [id number] [address] [place] [phone] Nov, Anxiety F41.9 and Developmen oscar disorder F89 [facility] [address] [place] [id number] [address] [place] [phone] Nov, [facility] [address] [place] [id number] [address] [place] [phone] Nov, [facility] [address] [place] [id number] [place] [phone] Oct, Hyperlipidemia, unspecified hyperlipidemia E78.5 [place] [address] [place] [id number] [address] [place] [phone] Oct, Essential hypertension I10 ; Hyperlipidemia, unspecified hyperlipidemia E78.5 and Prostate cancer screening Z12.5 [facility] [id number] [place] [phone] Oct, Essential hypertension I10 ; Hyperlipidemia, unspecified hyperlipidemia E78.5 ; Nicotine abuse Z72.0 ; Anxiety F41.9 ; Developmental disorder F89 and Prostate cancer screening Z12.5 [facility] [address] [place] [id number] [address] [place] [phone] Aug, Anxiety F41.9 and Developmen oscar disorder F89 [facility] [address] [place] [id number] [address] [place] [phone] Aug, Essential hypertension I10 a nd Encounter for immunization Z23 [facility] [address] [place] [id number] [address] [place] [phone] Aug, Prostate cancer screening Z1 2.5 [facility] [address] [place] [id number] [address] [place] [phone] Jun, Hypertension 401.9 [facility] [address] [place] [id number] [address] [place] [phone] 18 Jun, 2015 [facility] [address] [id number] [address] [place] [id number] May, Impulse control disorder, un specified 312.30 ; Generalized anxiety disorder 300.02 ; Other specified pervasive developmental disorders, 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 and 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 [facility] [address] [facility] [id number] [address] [place] [phone] Mar, Hypertension 401.9 [facility] [address] [id number] [address] [place] [address] [id number] Mar, Dental examination V72.2 [facility] [address] [facility] [id number] [address] [place] [phone] February, Hypertension 401.9 and Hyper lipidemia 272.4 [facility] [address] [facility] [id number] [address] [place] [address] February, [facility] [address] [facility] [id number] [address] [place] [phone] February, Generalized anxiety disorder 300.02 ; Impulse control disorder 312.30 ; 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 and Benign essential HTN 401.1 [facility] [address] [facility] [id number] [address] [place] [phone] Jan, [facility] [address] [facility] [id number] [address] [place] [phone] Jan, [facility] [address] [facility] [id number] [address] [place] [phone] Dec, [facility] [address] [facility] [id number] [address] [place] [phone] Dec, [facility] [address] [facility] [id number] [address] [place] [phone] Dec, [facility] [address] [facility] [id number] [address] [place] [phone] 17 Dec, 2014 [facility] [address] [id number] [address] [place] [address], [place] [address] 16 Dec, 2014 [facility] [address] [id number] [address] [place] [address], [place] [phone] 16 Dec, 2014 [facility] [address] [id number] [address] [place] [address], [place] [address] 09 Dec, 2014 [facility] [address] [id number] [address] [place] [address], [place] [address] Dec, [facility] [address] [id number] [address] [place] [address], [place] [address] 20 Nov, 2014 [facility] [address] [id number] [address] [place] [address], [place] [address] Nov, 2014 [facility] [address] [id number] [address] [place] [address], [place] [address] 19 Nov, 2014 [facility] [address] [id number] [address] [place] [address], [place] [address] Nov, [facility] [address] [id number] [address] [place] [address], [place] [address] 18 Nov, 2014 [facility] [address] [id number] [address] [place] [address], [place] [address] Nov, [facility] [address] [id number] [address] [place] [address], [place] [address] 17 Nov, 2014 [facility] [address] [id number] [address] [place] [address], [place] [address] Nov, [facility] [address] [id number] [address] [place] [address], [place] [address] Oct, [facility] [address] [id number] [address] [place] [address], [place] [address] Oct, [facility] [address] [id number] [address] [place] [address], [place] [address] Oct, [facility] [address] [id number] [address] [place] [phone] Oct, [facility] [address] [id number] [address] [place] [address], [place] [address] Oct, [facility] [address] [id number] [address] [place] [address], [place] [address] Oct, [facility] [address] [id number] [address] [place] [address], [place] [address] Sep, [facility] [address] [id number] [address] [place] [address], [place] [address] Sep, [facility] [address] [id number] [address] [place] [address], [place] [address] Sep, [facility] [address] [id number] [address] [place] [address], [place] [address] Sep, [facility] [address] [id number] [address] [place] [address], [place] [address] Sep, [facility] [address] [id number] [address] [place] [address], [place] [address] Sep, [facility] [address] [id number] [address] [place] [address], [place] [address] Aug, [facility] [address] [id number] [address] [place] [address], [place] [address] Aug, [facility] [address] [id number] [address] [place] [address], [place] [address] Aug, [facility] [address] [id number] [address] [place] [phone] Aug, [facility] [address] [id number] [address] [place] [address], [place] [address] Jul, [facility] [address] [id number] [address] [place] [address], [place] [address] Jul, [facility] [address] [id number] [address] [place] [address], [place] [address] May, [facility] [address] [id number] [address] [place] [address], [place] [address] May, [facility] [address] [id number] [address] [place] [address], [place] [address] Apr, [facility] [address] [id number] [address] [place] [address], [place] [address] Apr, [facility] [address] [id number] [address] [place] [address], [place] [address] Mar, [facility] [address] [id number] [address] [place] [address], [place] [address] Mar, [facility] [address] [id number] [address] [place] [address], [place] [address] Mar, [facility] [address] [id number] [address] [place] [address], [place] [address] Mar, [facility] [address] [id number] [address] [place] [address], [place] [address] February, [facility] [address] [id number] [address] [place] [address], [place] [address] February, [facility] [address] [id number] [address] [place] [address], [place] [address] Jan, [facility] [address] [id number] [address] [place] [address], [place] [address] Jan, [facility] [address] [id number] [address] [place] [address], [place] [address] Oct, [facility] [address] [id number] [address] [place] [address], [place] [address] Oct, [facility] [address] [id number] [address] [place] [address], [place] [address] Oct, [facility] [address] [id number] [address] [place] [address], [place] [address] Oct, [facility] [address] [id number] [address] [place] [address], [place] [address] Oct, [facility] [address] [id number] [address] [place] [address], [place] [address] Oct, [facility] [address] [id number] [address] [place] [address], [place] [address] Oct, [facility] [address] [id number] [address] [place] [address], [place] [address] Oct, [facility] [address] [id number] [address] [place] [address], [place] [address] Oct, [facility] [address] [id number] [address] [place] [address], [place] [address] Dec, [facility] [address] [id number] [address] [place] [address], [place] [address] Sep, [facility] [address] [id number] [address] [place] [address], [place] [address] Sep, [facility] [address] [id number] [address] [place] [address], [place] [address] May, [facility] [address] [id number] [address] [place] [address], [place] [address] Apr, [facility] [address] [id number] [address] [place] [address], [place] [address] Apr, [facility] [address] [id number] [address] [place] [address], [place] [address] Apr, [facility] [address] [id number] [place] [id number] February, [facility] [address] [id number] [address] [place] [address], [place] [address] Jan, [facility] [address] [id number] [address] [place] [address], [place] [address] Dec, [facility] [address] [id number] [address] [place] [address], [place] [address] Sep, [facility] [address] [id number] [address] [place] [address], [place] [id number] Sep, [facility] [address] [id number] [address] [place] [id number] Aug, [facility] [address] [id number] [address] [place] [id number] Aug, [facility] [address] [facility] [id number] [address] [place] [id number] Jul, [facility] [address] [facility] [id number] [address] [place] [phone] Mar, [facility] [address] [facility] [id number] [address] [place] [id number] Mar, [facility] [address] [facility] [id number] [address] [place] [id number] Mar, IMMUNIZATIONS No Known Immunizations SOCIAL HISTORY Never Assessed REASON FOR VISIT PLAN OF CARE VITAL SIGNS Height 67.5 in 2014-08-02 Weight 150.12 lbs 2014-08-02 Temperature 97.6 degrees Fahrenheit 2014-08-02 Heart Rate 88 bpm 2014-08-02 Respiratory Rate 28 2014-08-02 Blood pressure systolic 150 mmHg 2014-08-02 Blood pressure diastolic 98 mmHg 2014-08-02 MEDICATIONS Unknown Medications RESULTS No Results PROCEDURES No Known procedures INSTRUCTIONS MEDICATIONS ADMINISTERED No Known Medications MEDICAL (GENERAL) HISTORY Type Description Date Medical History hyperlipidemia Medical History hypertension Medical History mood disorder Medical History mild mental retardation Medical History insomnia Medical History anxiety Medical History Asperger's Surgical History laser eye surgery
--- OUTSIDE RECORDS SUMMARY | 2020-01-04 10:16 | XMS REPORT ---
Author Author Anton FAY Organization [facility] Address [address] [place] [address] Care Team Providers Care Pocketbook Maker Name Role Phone TWAN FAY Unavailable PROBLEMS Type Condition ICD9-CM Code [id number] Code Onset Dates Condition S tatus SNOMED Code Problem Essential hypertension I10 Active 69411741 Problem Urinary incontinence, unspecified type R32 Active 480364880 Problem Hyperglycemia R73.9 Active 454052 07 Problem Anxiety F41.9 Active 29444065 Problem Hyperlipidemia, unspecified hyperlipidemia E78.5 Active 10818370 Problem Nicotine abuse Z72.0 Active 85796 008 Problem Developmental disorder F89 Active 3330974 ALLERGIES No Information ENCOUNTERS Encounter Location Date Diagnosis [facility] [address] [facility] [id number] [address] [place] [phone] May, [facility] [address] [facility] [id number] [address] [place] [address] Apr, [facility] [address] [facility] [id number] [address] [place] [address] February, [facility] [address] [facility] [id number] [address] [place] [address] February, Anxiety F41.9 ; Developmenta l disorder F89 and Nicotine abuse Z72.0 [facility] [address] [facility] [id number] [address] [place] [address] February, Essential hypertension I10 a nd Impacted cerumen, bilateral H61.23 [facility] [address] [id number] [address] [place] [address] [phone] Dec, Oral health maintenance stat us requiring routine preventive dental care K08.9 [facility] [address] [facility] [id number] [address] [place] [phone] Dec, Developmental disorder F89 a nd Anxiety F41.9 [facility] [address] [id number] [address] [place] [phone] Nov, [facility] [address] [facility] [id number] [address] [place] [address] Nov, Essential hypertension I10 [facility] [address] [facility] [id number] [address] [place] [address] Nov, Essential hypertension I10 [facility] [address] [facility] [id number] [address] [place] [address] Nov, Developmental disorder F89 a nd Anxiety F41.9 [facility] [address] [facility] [id number] [address] [place] [phone] Nov, [facility] [address] [facility] [id number] [address] [place] [phone] Nov, Essential hypertension I10 [facility] [address] [facility] [id number] [address] [place] [address] Oct, Elevated blood sugar R73.09 [facility] [address] [facility] [id number] [address] [place] [address] Oct, Elevated blood sugar R73.09 [facility] [address] [facility] [id number] [address] [place] [address] Oct, Encounter for Medicare annua l wellness exam Z00.00 ; Screening PSA (prostate specific antigen) Z12.5 ; Essential hypertension I10 ; Hyperlipidemia, unspecified hyperlipidemia E78.5 ; Nicotine abuse Z72.0 ; Anxiety F41.9 ; Bilateral impacted cerumen H61.23 and Developmental disorder F89 [facility] [address] [facility] [id number] [address] [place] [address] Oct, Encounter for Medicare annua l wellness exam Z00.00 ; Essential hypertension I10 ; Hyperlipidemia, unspecified hyperlipidemia E78.5 ; Nicotine abuse Z72.0 ; Anxiety F41.9 ; Developmental disorder F89 and Screening PSA (prostate specific antigen) Z12.5 [facility] [address] [id number] [address] [place] [address] [id number] Sep, Dental examination Z01.20 [facility] [address] [facility] [id number] [address] [place] [address] Jul, Developmental disorder F89 a nd Anxiety F41.9 [facility] [address] [facility] [id number] [address] [place] [address] Jun, Essential hypertension I10 ; Nicotine abuse Z72.0 and Encounter for immunization Z23 [facility] [address] [id number] [address] [place] [address] [id number] Apr, Dental examination Z01.20 [facility] [address] [facility] [id number] [address] [place] [address] [id number] Jan, Dental examination Z01.20 [facility] [address] [facility] [id number] [address] [place] [address] Dec, Developmental disorder F89 a nd Anxiety F41.9 [facility] [address] [facility] [id number] [address] [place] [id number] 14 Nov, 2017 Essential hypertension I10 ; Hyperlipidemia, unspecified hyperlipidemia E78.5 ; Nicotine abuse Z72.0 and Bilateral impacted cerumen H61.23 [facility] [address] [facility] [id number] [address] [place] [address] Oct, [facility] [address] [id number] [place] [address] [id number] Sep, Encounter for dental exam an d cleaning w/o abnormal findings Z01.20 [facility] [address] [facility] [id number] [address] [place] [address] Sep, Medicare annual wellness vis it, initial Z00.00 and Encounter for immunization Z23 [facility] [address] [facility] [id number] [address] [place] [phone] Aug, Encounter for immunization Z 23 ; Developmental disorder F89 and Anxiety F41.9 [facility] [address] [id number] [address] [place] [address] [id number] 13 Jun, 2017 Encounter for dental examina tion and cleaning without abnormal findings Z01.20 [facility] [address] [id number] [address] [place] [phone] 27 Apr, 2017 Anxiety F41.9 and Developmen oscar disorder F89 [facility] [address] [facility] [id number] [address] [place] [phone] 17 Apr, 2017 Essential hypertension I10 a nd Nicotine abuse Z72.[id number] [place] [address] [id number] Mar, Dental examination Z01.20 [facility] [address] [id number] [address] [place] [id number] Mar, Encounter for dental examina tion and cleaning without abnormal findings Z01.20 [place] [address] [facility] [id number] [address] [place] [phone] 05 Jan, 2017 [facility] [address] [facility] [id number] [address] [place] [address] Dec, Developmental disorder F89 a nd Anxiety F41.9 [facility] [address] [id number] [address] [place] [address] [id number] Dec, Encounter for dental examina tion and cleaning without abnormal findings Z01.20 [facility] [address] [facility] [id number] [address] [place] [phone] Sep, Encounter for immunization Z 23 [facility] [address] [facility] [id number] [address] [place] [phone] 08 Sep, 2016 Prostate cancer screening Z1 2.5 and Hyperlipidemia, unspecified hyperlipidemia E78.5 [place] [place] [address] [facility] [id number] [address] [place] [phone] 06 Sep, 2016 Annual physical exam Z00.00 ; Encounter for immunization Z23 ; Essential hypertension I10 ; Hyperlipidemia, unspecified hyperlipidemia E78.5 ; Anxiety F41.9 ; Prostate cancer screening Z12.5 and Nicotine abuse Z72.0 [facility] [address] [id number] [address] [place] [phone] Aug, [facility] [address] [id number] [address] [place] [phone] Jul, Urinary incontinence, unspec ified type R32 [facility] [address] [id number] [address] [place] [address] [id number] Jul, Dental examination Z01.20 [facility] [address] [id number] [address] [place] [address] Jul, Urinary incontinence, unspec ified type R32 [facility] [address] [facility] [id number] [address] [place] [phone] Jul, Anxiety F41.9 and Developmen oscar disorder F89 [facility] [address] [id number] [address] [place] [address] [id number] May, Dental examination Z01.[address] [place] [id number] [place] [address] [id number] Apr, Encounter for dental examination Z01.20 [facility] [address] [id number] Apr, Encounter for dental examina tion and cleaning without abnormal findings Z01.20 [facility] [address] [facility] [id number] [address] [place] [phone] Mar, Developmental disorder F89 a nd Anxiety F41.9 [facility] [address] [id number] [address] [place] [address] [id number] February, Dental examination Z01.20 [facility] [address] [facility] [id number] [address] [place] [phone] February, Essential hypertension I10 [facility] [address] [facility] [id number] [address] [place] [address] February, Arthralgia M25.50 [facility] [address] [id number] [address] [place] [address] [id number] Jan, Encounter for dental examina tion and cleaning without abnormal findings Z01.20 [facility] [address] [place] [id number] [address] [place] [phone] Dec, [facility] [address] [place] [id number] [address] [place] [phone] Nov, Anxiety F41.9 and Developmen oscar disorder F89 [place] [id number] [place] [address] Nov, [facility] [address] [place] [id number] [place] [phone] Nov, [place] [address] [id number] Oct, Hyperlipidemia, unspecified hyperlipidemia E78.5 [place] [address] [address] Oct, Essential hypertension I10 ; Hyperlipidemia, unspecified hyperlipidemia E78.5 and Prostate cancer screening Z12.5 [place] [address] [place] [id number] [address] [place] [address] Oct, Essential hypertension I10 ; Hyperlipidemia, unspecified hyperlipidemia E78.5 ; Nicotine abuse Z72.0 ; Anxiety F41.9 ; Developmental disorder F89 and Prostate cancer screening Z12.5 [place] [id number] [place] [address] Aug, Anxiety F41.9 and Developmen oscar disorder F89 [place] [address] [place] [id number] [address] [place] [address] Aug, Essential hypertension I10 a nd Encounter for immunization Z23 [place] [address] [place] [id number] [address] [place] [address] Aug, Prostate cancer screening Z1 2.5 [place] [address] [place] [id number] [address] [place] [phone] Jun, Hypertension 401.9 [place] [address] [id number] [address] [place] [id number] 18 Jun, 2015 [facility] [address] 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 [id number] [address] [place] [address] Mar, Hypertension 401.9 [facility] [address] [id number] [address] [place] [address] [id number] Mar, Dental examination V72.2 [facility] [address] [facility] [id number] [address] [place] [id number] February, Hypertension 401.9 and Hyper lipidemia 272.4 [facility] [address] [facility] [id number] [address] [place] [id number] February, [facility] [address] 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 [id number] [address] [place] [phone] Jan, [facility] [address] [facility] [id number] [address] [place] [phone] Jan, [facility] [address] [facility] [id number] [address] [place] [phone] Dec, [facility] [address] [id number] [address] [place] [phone] Dec, [facility] [address] [facility] [id number] [address] [place] [id number] Dec, [facility] [address] [facility] [id number] [address] [place] [phone] Dec, [facility] [place] [facility] [address] [id number] [address] [place] [address], [place] [address] 16 Dec, 2014 [facility] [address] [id number] [address] [place] [address], [place] [address] Dec, [facility] [place] [facility] [address] [id number] [address] [place] [address], [place] [address] Dec, [facility] [address] [id number] [address] [place] [address], [place] [address] Dec, [facility] [place] [facility] [address] [id number] [address] [place] [address], [place] [address] Nov, [facility] [address] [id number] [address] [place] [address], [place] [address] Nov, [facility] [address] [id number] [address] [place] [address], [place] [address] Nov, [facility] [place] [address] [id number] [address] [place] [address], [place] [address] Nov, [facility] [address] [id number] [address] [place] [address], [place] [address] Nov, [facility] [address] [id number] [address] [place] [address], [place] [address] Nov, [facility] [address] [id number] [address] [place] [address], [place] [address] 17 Nov, 2014 [facility] [place] [facility] [address] [id number] [address] [place] [address], [place] [address] Nov, [facility] [place] [address] [id number] [address] [place] [address], [place] [address] Oct, [facility] [place] [facility] [address] [id number] [address] [place] [address], [place] [address] Oct, [facility] [place] [facility] [address] [id number] [address] [place] [address], [place] [address] Oct, [facility] [place] [facility] [address] [id number] [address] [place] [address] Oct, [facility] [address] [id number] [address] [place] [address], [place] [address] Oct, [facility] [address] [id number] [address] [place] [address], [place] [address] Oct, [facility] [address] [id number] [address] [place] [address], [place] [address] Sep, [facility] [address] [id number] [address] [place] [address], [place] [address] Sep, [facility] [address] [id number] [address] [place] [address], [place] [address] Sep, [facility] [address] [id number] [address] [place] [address], [place] [address] Sep, [facility] [address] [id number] [address] [place] [address], [place] [address] Sep, [facility] [address] [id number] [address] [place] [address], [place] [address] Sep, [facility] [address] [id number] [address] [place] [address], [place] [address] Aug, [facility] [address] [id number] [address] [place] [address], [place] [address] Aug, [facility] [address] [id number] [address] [place] [address] Aug, [facility] [place] [address] [id number] [address] [place] [address] Aug, [facility] [place] [address] [id number] [address] [place] [address], [place] [address] Jul, [facility] [place] [address] [id number] [address] [place] [address], [place] [address] Jul, [facility] [address] [id number] [address] [place] [address], [place] [address] May, [facility] [address] [id number] [address] [place] [address], [place] [address] May, [facility] [address] [id number] [address] [place] [address], [place] [address] Apr, [facility] [address] [id number] [address] [place] [address], [place] [address] Apr, [facility] [address] [id number] [address] [place] [address], [place] [address] Mar, [facility] [address] [id number] [address] [place] [address], [place] [address] Mar, [facility] [address] [id number] [address] [place] [address], [place] [address] Mar, [facility] [address] [id number] [address] [place] [address], [place] [address] Mar, [facility] [address] [id number] [address] [place] [address], [place] [address] February, [facility] [address] [id number] [address] [place] [address], [place] [address] February, [facility] [address] [id number] [address] [place] [address], [place] [address] Jan, [facility] [address] [id number] [address] [place] [address], [place] [address] Jan, [facility] [address] [id number] [address] [place] [address], [place] [address] Oct, [facility] [address] [id number] [address] [place] [address], [place] [address] Oct, [facility] [address] [id number] [address] [place] [address], [place] [address] Oct, [facility] [address] [id number] [address] [place] [address], [place] [address] Oct, [facility] [address] [id number] [address] [place] [address], [place] [address] Oct, [facility] [address] [id number] [address] [place] [address], [place] [address] Oct, [facility] [address] [id number] [address] [place] [address], [place] [address] Oct, [facility] [address] [id number] [address] [place] [address], [place] [address] Oct, [facility] [address] [id number] [address] [place] [address], [place] [address] Oct, [facility] [address] [id number] [address] [place] [address], [place] [address] Dec, [facility] [address] [id number] [address] [place] [address], [place] [address] Sep, [facility] [address] [id number] [address] [place] [address], [place] [address] Sep, [facility] [address] [id number] [address] [place] [address], [place] [address] May, [facility] [address] [id number] [address] [place] [address], [place] [address] Apr, [facility] [address] [id number] [address] [place] [address], [place] [address] Apr, [facility] [address] [id number] [address] [place] [address], [place] [address] Apr, [facility] [id number] [place] [id number] February, [facility] [address] [id number] [address] [place] [address], [place] [address] Jan, [facility] [address] [id number] [address] [place] [address], [place] [address] Dec, [facility] [address] [id number] [address] [place] [address], [place] [address] Sep, [facility] [address] [id number] [address] [address] Sep, [facility] [address] [facility] [id number] [address] [place] [id number] Aug, [facility] [address] [facility] [id number] [address] [place] [phone] Aug, [facility] [address] [facility] [id number] [address] [place] [phone] Jul, [facility] [address] [facility] [id number] [address] [place] [phone] Mar, [facility] [address] [facility] [id number] [address] [place] [phone] Mar, [facility] [address] [facility] [id number] [address] [place] [phone] Mar, IMMUNIZATIONS No Known Immunizations SOCIAL HISTORY Never Assessed REASON FOR VISIT PLAN OF CARE VITAL SIGNS MEDICATIONS Unknown Medications RESULTS No Results PROCEDURES Procedure Date Ordered Result Body Site COMPLETE CBC W/AUTO DIFF WBC Sep 26, 2014 LIPID PANEL Sep 26, 2014 COMPREHEN METABOLIC PANEL Sep 26, 2014 VENIPUNCT, ROUTINE* Sep 26, 2014 INSTRUCTIONS MEDICATIONS ADMINISTERED No Known Medications MEDICAL (GENERAL) HISTORY Type Description Date Medical History hyperlipidemia Medical History hypertension Medical History mood disorder Medical History mild mental retardation Medical History insomnia Medical History anxiety Medical History Asperger's Surgical History laser eye surgery
--- OUTSIDE RECORDS SUMMARY | 2020-01-04 10:16 | XMS REPORT ---
Author Author Anton CHAVEZ [facility] Address [address] [place] [address] Care Team Providers Care Materials Planning Analyst Name Role Phone SCOTTMIKEARIEL Unavailable PROBLEMS Type Condition ICD9-CM Code [id number] Code Onset Dates Condition S tatus SNOMED Code Problem Essential hypertension I10 Active 22018774 Problem Urinary incontinence, unspecified type R32 Active 728040995 Problem Hyperglycemia R73.9 Active 372081 07 Problem Anxiety F41.9 Active 50328181 Problem Hyperlipidemia, unspecified hyperlipidemia E78.5 Active 53179334 Problem Nicotine abuse Z72.0 Active 74129 008 Problem Developmental disorder F89 Active 9100158 ALLERGIES No Information ENCOUNTERS Encounter Location Date Diagnosis [facility] [address] [facility] [id number] [address] [place] [phone] Oct, OUTREACH [facility] [id number] [place] [phone] Jul, [facility] [address] [facility] [id number] [address] [place] [phone] May, Anxiety F41.9 ; Developmenta l disorder F89 and Nicotine abuse Z72.0 [facility] [address] [facility] [id number] [address] [place] [phone] Apr, [facility] [address] [facility] [id number] [address] [place] [phone] February, [facility] [address] [place] [id number] [address] [place] [phone] February, Anxiety F41.9 ; Developmenta l disorder F89 and Nicotine abuse Z72.0 [facility] [address] [place] [id number] [address] [place] [phone] February, Essential hypertension I10 a nd Impacted cerumen, bilateral H61.23 [facility] [address] [id number] [address] [place] [address] [phone] Dec, Oral health maintenance stat us requiring routine preventive dental care K08.9 [facility] [address] [facility] [id number] [address] [place] [address] Dec, Developmental disorder F89 a nd Anxiety F41.9 [facility] [address] [id number] [address] [place] [phone] Nov, [facility] [address] [facility] [id number] [address] [place] [address] Nov, Essential hypertension I10 [facility] [address] [facility] [id number] [address] [place] [phone] Nov, Essential hypertension I10 [facility] [address] [facility] [id number] [address] [place] [address] Nov, Developmental disorder F89 a nd Anxiety F41.9 [facility] [address] [facility] [id number] [address] [place] [address] Nov, [facility] [address] [facility] [id number] [address] [place] [address] Nov, Essential hypertension I10 [facility] [address] [facility] [id number] [address] [place] [phone] Oct, Elevated blood sugar R73.09 [facility] [address] [facility] [id number] [address] [place] [address] Oct, Elevated blood sugar R73.09 [facility] [address] [facility] [id number] [address] [place] [address] Oct, Encounter for Medicare annua l wellness exam Z00.00 ; Screening PSA (prostate specific antigen) Z12.5 ; Essential hypertension I10 ; Hyperlipidemia, unspecified hyperlipidemia E78.5 ; Nicotine abuse Z72.0 ; Anxiety F41.9 ; Bilateral impacted cerumen H61.23 and Developmental disorder F89 [facility] [address] [id number] [address] [place] [phone] 14 Oct, 2018 Encounter for Medicare shay hennessy wellness exam Z00.00 ; Essential hypertension I10 ; Hyperlipidemia, unspecified hyperlipidemia E78.5 ; Nicotine abuse Z72.0 ; Anxiety F41.9 ; Developmental disorder F89 and Screening PSA (prostate specific antigen) Z12.5 [facility] [address] [id number] [address] [place] [address] [id number] 19 Sep, 2018 Dental examination Z01.20 [facility] [address] [id number] [address] [place] [phone] 16 Jul, 2018 Developmental disorder F89 a nd Anxiety F41.9 [facility] [address] [facility] [id number] [address] [place] [phone] 26 Jun, 2018 Essential hypertension I10 ; Nicotine abuse Z72.0 and Encounter for immunization Z23 [facility] [id number] [place] [address] [phone] Apr, Dental examination Z01.20 [facility] [address] [id number] [place] [address] [phone] Jan, Dental examination Z01.20 [facility] [address] [facility] [id number] [address] [place] [address] Dec, Developmental disorder F89 a nd Anxiety F41.9 [facility] [address] [id number] [address] [place] [phone] 14 Nov, 2017 Essential hypertension I10 ; Hyperlipidemia, unspecified hyperlipidemia E78.5 ; Nicotine abuse Z72.0 and Bilateral impacted cerumen H61.23 [facility] [address] [id number] [address] [place] [phone] Oct, [facility] [address] [facility] [id number] [address] [place] [address] [id number] Sep, Encounter for dental exam an d cleaning w/o abnormal findings Z01.20 [facility] [address] [id number] [address] [place] [phone] Sep, Medicare annual wellness vis it, initial Z00.00 and Encounter for immunization Z23 [facility] [address] [facility] [id number] [address] [place] [phone] Aug, Encounter for immunization Z 23 ; Developmental disorder F89 and Anxiety F41.9 [facility] [address] [id number] [address] [place] [address] [phone] Jun, Encounter for dental examina tion and cleaning without abnormal findings Z01.20 [facility] [address] [id number] [address] [place] [phone] Apr, Anxiety F41.9 and Developmen oscar disorder F89 [place] [address] [facility] [id number] [address] [place] [phone] Apr, Essential hypertension I10 a nd Nicotine abuse Z72.[address] [place] [id number] [place] [address] [id number] Mar, Dental examination Z01.20 [facility] [address] [id number] [address] [place] [address] [phone] Mar, Encounter for dental examina tion and cleaning without abnormal findings Z01.20 [facility] [address] [facility] [id number] [address] [place] [phone] Jan, [facility] [address] [facility] [id number] [address] [place] [phone] Dec, Developmental disorder F89 a nd Anxiety F41.9 [facility] [address] [id number] [address] [place] [address] [phone] Dec, Encounter for dental examina tion and cleaning without abnormal findings Z01.20 [facility] [address] [facility] [id number] [address] [place] [phone] Sep, Encounter for immunization Z 23 [facility] [address] [facility] [id number] [address] [place] [phone] 08 Sep, 2016 Prostate cancer screening Z1 2.5 and Hyperlipidemia, unspecified hyperlipidemia E78.5 [facility] [address] [facility] [id number] [address] [place] [phone] 06 Sep, 2016 Annual physical exam Z00.00 ; Encounter for immunization Z23 ; Essential hypertension I10 ; Hyperlipidemia, unspecified hyperlipidemia E78.5 ; Anxiety F41.9 ; Prostate cancer screening Z12.5 and Nicotine abuse Z72.0 [facility] [address] [id number] [address] [place] [phone] Aug, [facility] [address] [id number] [address] [place] [phone] Jul, Urinary incontinence, unspec ified type R32 [facility] [address] [id number] [address] [place] [address] [id number] Jul, Dental examination Z01.20 [facility] [address] [facility] [id number] [address] [place] [phone] Jul, Urinary incontinence, unspec ified type R32 [facility] [address] [facility] [id number] [address] [place] [address] Jul, Anxiety F41.9 and Developmen oscar disorder F89 [facility] [address] [id number] [address] [place] [address] [phone] May, Dental examination Z01.[address] [id number] [place] [address] [id number] Apr, Encounter for dental examination Z01.20 [facility] [address] [id number] [address] [place] [address] [id number] Apr, Encounter for dental examina tion and cleaning without abnormal findings Z01.20 [facility] [address] [id number] [address] [place] [phone] Mar, Developmental disorder F89 a nd Anxiety F41.9 [facility] [address] [id number] [address] [place] [address] [phone] February, Dental examination Z01.20 [facility] [address] [id number] [address] [place] [phone] February, Essential hypertension I10 [facility] [address] [facility] [id number] [address] [place] [phone] February, Arthralgia M25.50 [facility] [address] [id number] [address] [place] [address] [phone] Jan, Encounter for dental examina tion and cleaning without abnormal findings Z01.20 [facility] [address] [facility] [id number] [address] [place] [phone] Dec, [facility] [address] [facility] [id number] [address] [place] [phone] Nov, Anxiety F41.9 and Developmen oscar disorder F89 [facility] [address] [facility] [id number] [address] [place] [phone] Nov, [facility] [address] [place] [id number] [address] [place] [phone] Nov, [facility] [address] [facility] [id number] [address] [place] [phone] Oct, Hyperlipidemia, unspecified hyperlipidemia E78.5 [facility] [address] [facility] [id number] [address] [place] [phone] Oct, Essential hypertension I10 ; Hyperlipidemia, unspecified hyperlipidemia E78.5 and Prostate cancer screening Z12.5 [facility] [address] [facility] [id number] [address] [place] [phone] Oct, Essential hypertension I10 ; Hyperlipidemia, unspecified hyperlipidemia E78.5 ; Nicotine abuse Z72.0 ; Anxiety F41.9 ; Developmental disorder F89 and Prostate cancer screening Z12.5 [facility] [address] [facility] [id number] [address] [place] [phone] Aug, Anxiety F41.9 and Developmen oscar disorder F89 [facility] [address] [facility] [id number] [address] [place] [phone] Aug, Essential hypertension I10 a nd Encounter for immunization Z23 [facility] [address] [facility] [id number] [address] [place] [phone] 04 Aug, 2015 Prostate cancer screening Z1 2.5 [facility] [address] [facility] [id number] [address] [place] [phone] 29 Jun, 2015 Hypertension 401.9 [facility] [address] [facility] [id number] [address] [place] [phone] 18 Jun, 2015 [facility] [address] [facility] [id number] [address] [place] [phone] May, Impulse control disorder, un specified 312.30 ; Generalized anxiety disorder 300.02 ; Other specified pervasive developmental disorders, 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 and 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 [facility] [address] [place] [id number] [address] [place] [phone] 17 Mar, 2015 Hypertension 401.9 [facility] [address] [facility] [id number] [address] [place] [address] [id number] Mar, Dental examination V72.2 [facility] [address] [place] [id number] [address] [place] [phone] February, Hypertension 401.9 and Hyper lipidemia 272.4 [facility] [address] [place] [id number] [address] [place] [phone] February, [facility] [address] [place] [id number] [address] [place] [phone] February, Generalized anxiety disorder 300.02 ; Impulse control disorder 312.30 ; 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 and Benign essential HTN 401.1 [facility] [address] [facility] [id number] [address] [place] [phone] Jan, [facility] [address] [place] [id number] [address] [place] [phone] Jan, [facility] [address] [facility] [id number] [address] [place] [phone] Dec, [facility] [address] [place] [id number] [address] [place] [phone] 18 Dec, 2014 [facility] [address] [id number] [address] [place] [address], [place] [address] 17 Dec, 2014 [facility] [address] [id number] [address] [place] [address], [place] [address] 17 Dec, 2014 [facility] [address] [id number] [address] [place] [address], [place] [address] 16 Dec, 2014 [facility] [address] [id number] [address] [place] [address], [place] [address] 16 Dec, 2014 [facility] [address] [id number] [address] [place] [address], [place] [address] 09 Dec, 2014 [facility] [address] [id number] [address] [place] [address], [place] [address] 09 Dec, 2014 [facility] [address] [id number] [address] [place] [address], [place] [address] 20 Nov, 2014 [facility] [address] [id number] [address] [place] [address], [place] [address] 20 Nov, 2014 [facility] [address] [id number] [address] [place] [address], [place] [address] 19 Nov, 2014 [facility] [address] [id number] [address] [place] [address], [place] [address] 19 Nov, 2014 [facility] [address] [id number] [address] [place] [address], [place] [address] 18 Nov, 2014 [facility] [address] [id number] [address] [place] [address], [place] [address] 18 Nov, 2014 [facility] [address] [id number] [address] [place] [address], [place] [address] 17 Nov, 2014 [facility] [address] [id number] [address] [place] [address], [place] [address] 17 Nov, 2014 [facility] [address] [id number] [address] [place] [address], [place] [address] 15 Oct, 2014 [facility] [address] [id number] [address] [place] [address], [place] [address] Oct, [facility] [address] [id number] [address] [place] [address], [place] [address] Oct, [facility] [address] [id number] [address] [place] [address], [place] [address] Oct, [facility] [address] [id number] [address] [place] [address], [place] [address] Oct, [facility] [address] [id number] [address] [place] [address], [place] [address] Oct, [facility] [address] [id number] [address] [place] [address], [place] [address] Sep, [facility] [address] [id number] [address] [place] [address], [place] [address] Sep, [facility] [address] [id number] [address] [place] [address], [place] [address] Sep, [facility] [address] [id number] [address] [place] [address], [place] [address] Sep, [facility] [address] [id number] [address] [place] [address], [place] [address] Sep, [facility] [address] [id number] [address] [place] [address], [place] [address] Sep, [facility] [address] [id number] [address] [place] [address], [place] [address] Aug, [facility] [address] [id number] [address] [place] [address], [place] [address] Aug, [facility] [address] [id number] [address] [place] [address], [place] [address] Aug, [facility] [address] [id number] [address] [place] [address], [place] [address] Aug, [facility] [address] [id number] [address] [place] [address], [place] [address] Jul, [facility] [address] [id number] [address] [place] [address], [place] [address] Jul, [facility] [address] [id number] [address] [place] [address], [place] [address] May, [facility] [address] [id number] [address] [place] [address], [place] [address] May, [facility] [address] [id number] [address] [place] [address], [place] [address] Apr, [facility] [address] [id number] [address] [place] [address], [place] [address] Apr, [facility] [address] [id number] [address] [place] [address], [place] [address] Mar, [facility] [address] [id number] [address] [place] [address], [place] [address] Mar, [facility] [address] [id number] [address] [place] [address], [place] [address] Mar, [facility] [address] [id number] [address] [place] [address], [place] [address] Mar, [facility] [address] [id number] [address] [place] [address], [place] [address] February, [facility] [address] [id number] [address] [place] [address], [place] [address] February, [facility] [address] [id number] [address] [place] [address], [place] [address] Jan, [facility] [address] [id number] [address] [place] [address], [place] [address] Jan, [facility] [address] [id number] [address] [place] [address], [place] [address] Oct, [facility] [address] [id number] [address] [place] [address], [place] [address] Oct, [facility] [address] [id number] [address] [place] [address], [place] [address] Oct, [facility] [address] [id number] [address] [place] [address], [place] [address] Oct, [facility] [address] [id number] [address] [place] [address], [place] [address] Oct, [facility] [address] [id number] [address] [place] [address], [place] [address] Oct, [facility] [address] [id number] [address] [place] [address], [place] [address] Oct, [facility] [address] [id number] [address] [place] [address], [place] [address] Oct, [facility] [address] [id number] [address] [place] [address], [place] [address] Oct, [facility] [address] [id number] [address] [place] [address], [place] [address] Dec, [facility] [address] [id number] [address] [place] [address], [place] [address] Sep, [facility] [address] [id number] [address] [place] [address], [place] [address] Sep, [facility] [address] [id number] [address] [place] [address], [place] [address] May, [facility] [address] [id number] [address] [place] [address], [place] [address] Apr, [facility] [address] [id number] [address] [place] [address], [place] [address] Apr, [facility] [address] [id number] [address] [place] [address], [place] [address] Apr, [facility] [address] [id number] [place] [id number] February, [facility] [address] [id number] [address] [place] [address], [place] [address] Jan, [facility] [address] [id number] [address] [place] [phone] Dec, [facility] [address] [id number] [address] [place] [phone] Sep, [facility] [address] [id number] [address] [place] [phone] Sep, [facility] [address] [id number] [address] [place] [phone] Aug, [facility] [address] [id number] [address] [place] [phone] Aug, [facility] [address] [id number] [address] [place] [phone] Jul, [facility] [address] [id number] [address] [place] [id number] Mar, [facility] [address] [id number] [address] [place] [phone] 15 Mar, 2011 [facility] [address] [id number] [address] [place] [id number] Mar, IMMUNIZATIONS No Known Immunizations SOCIAL HISTORY [...]
--- OUTSIDE RECORDS SUMMARY | 2020-01-04 10:17 | XMS REPORT ---
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 Name Role Phone TWAN FAY Unavailable PROBLEMS Type Condition ICD9-CM Code LGG31-CA Code Onset Dates Condition S tatus SNOMED Code Problem Essential hypertension I10 Active 37057584 Problem Urinary incontinence, unspecified type R32 Active 565300226 Problem Hyperglycemia R73.9 Active 350917 07 Problem Anxiety F41.9 Active 49117581 Problem Hyperlipidemia, unspecified hyperlipidemia E78.5 Active 89481952 Problem Nicotine abuse Z72.0 Active 37388 008 Problem Developmental disorder F89 Active [id number] ALLERGIES No Information ENCOUNTERS Encounter Location Date Diagnosis [facility] [address] [facility] [id number] [address] [place] [phone] May, [facility] [address] [facility] [id number] [address] [place] [phone] Apr, [facility] [address] [facility] [id number] [address] [place] [phone] February, [facility] [address] [facility] [id number] [address] [place] [phone] February, Anxiety F41.9 ; Developmenta l disorder F89 and Nicotine abuse Z72.0 [facility] [address] [facility] [id number] [address] [place] [phone] February, Essential hypertension I10 a nd Impacted cerumen, bilateral H61.23 [facility] [address] [id number] [address] [place] [address] [id number] Dec, Oral health maintenance stat us requiring routine preventive dental care K08.9 [facility] [address] [facility] [id number] [address] [place] [phone] Dec, Developmental disorder F89 a nd Anxiety F41.9 [facility] [address] [id number] [address] [place] [phone] Nov, [facility] [address] [facility] [id number] [address] [place] [phone] Nov, Essential hypertension I10 [facility] [address] [facility] [id number] [address] [place] [phone] Nov, Essential hypertension I10 [facility] [address] [facility] [id number] [address] [place] [phone] Nov, Developmental disorder F89 a nd Anxiety F41.9 [facility] [address] [facility] [id number] [address] [place] [phone] Nov, [facility] [address] [facility] [id number] [address] [place] [phone] Nov, Essential hypertension I10 [facility] [address] [facility] [id number] [address] [place] [phone] Oct, Elevated blood sugar R73.09 [facility] [address] [facility] [id number] [address] [place] [phone] Oct, Elevated blood sugar R73.09 [facility] [address] [facility] [id number] [address] [place] [phone] Oct, Encounter for Medicare annua l wellness exam Z00.00 ; Screening PSA (prostate specific antigen) Z12.5 ; Essential hypertension I10 ; Hyperlipidemia, unspecified hyperlipidemia E78.5 ; Nicotine abuse Z72.0 ; Anxiety F41.9 ; Bilateral impacted cerumen H61.23 and Developmental disorder F89 [facility] [address] [facility] [id number] [address] [place] [phone] Oct, Encounter for Medicare annua l wellness exam Z00.00 ; Essential hypertension I10 ; Hyperlipidemia, unspecified hyperlipidemia E78.5 ; Nicotine abuse Z72.0 ; Anxiety F41.9 ; Developmental disorder F89 and Screening PSA (prostate specific antigen) Z12.5 [facility] [address] [id number] [address] [place] [address] [id number] Sep, Dental examination Z01.20 [facility] [address] [facility] [id number] [address] [place] [phone] Jul, Developmental disorder F89 a nd Anxiety F41.9 [facility] [address] [facility] [id number] [address] [place] [phone] Jun, Essential hypertension I10 ; Nicotine abuse Z72.0 and Encounter for immunization Z23 [facility] [address] [id number] [address] [place] [address] [id number] Apr, Dental examination Z01.20 [facility] [address] [facility] [id number] [address] [place] [address] [id number] Jan, Dental examination Z01.20 [facility] [address] [facility] [id number] [address] [place] [phone] Dec, Developmental disorder F89 a nd Anxiety F41.9 [facility] [address] [facility] [id number] [address] [place] [phone] 14 Nov, 2017 Essential hypertension I10 ; Hyperlipidemia, unspecified hyperlipidemia E78.5 ; Nicotine abuse Z72.0 and Bilateral impacted cerumen H61.23 [facility] [address] [facility] [id number] [address] [place] [phone] Oct, [facility] [address] [id number] [place] [address] [id number] Sep, Encounter for dental exam an d cleaning w/o abnormal findings Z01.20 [facility] [address] [facility] [id number] [address] [place] [phone] Sep, Medicare annual wellness vis it, initial Z00.00 and Encounter for immunization Z23 [facility] [address] [facility] [id number] [address] [place] [phone] Aug, Encounter for immunization Z 23 ; Developmental disorder F89 and Anxiety F41.9 [facility] [address] [id number] [address] [place] [address] [id number] 13 Jun, 2017 Encounter for dental examina tion and cleaning without abnormal findings Z01.20 [facility] [address] [id number] [address] [place] [phone] 27 Apr, 2017 Anxiety F41.9 and Developmen oscar disorder F89 [facility] [address] [facility] [id number] [address] [place] [phone] 17 Apr, 2017 Essential hypertension I10 a nd Nicotine abuse Z72.[id number] [place] [address] [id number] Mar, Dental examination Z01.20 [facility] [address] [id number] [address] [place] [address] [id number] Mar, Encounter for dental examina tion and cleaning without abnormal findings Z01.20 [place] [address] [facility] [id number] [address] [place] [id number] 05 Jan, 2017 [facility] [address] [facility] [id number] [address] [place] [phone] Dec, Developmental disorder F89 a nd Anxiety F41.9 [facility] [address] [id number] [address] [place] [address] [id number] Dec, Encounter for dental examina tion and cleaning without abnormal findings Z01.20 [facility] [address] [facility] [id number] [address] [place] [phone] Sep, Encounter for immunization Z 23 [facility] [address] [facility] [id number] [address] [place] [phone] 08 Sep, 2016 Prostate cancer screening Z1 2.5 and Hyperlipidemia, unspecified hyperlipidemia E78.5 [place] [address] [facility] [id number] [address] [place] [phone] 06 Sep, 2016 Annual physical exam Z00.00 ; Encounter for immunization Z23 ; Essential hypertension I10 ; Hyperlipidemia, unspecified hyperlipidemia E78.5 ; Anxiety F41.9 ; Prostate cancer screening Z12.5 and Nicotine abuse Z72.0 [facility] [address] [id number] [address] [place] [phone] Aug, [facility] [address] [id number] [address] [place] [phone] Jul, Urinary incontinence, unspec ified type R32 [facility] [address] [id number] [address] [place] [address] [id number] Jul, Dental examination Z01.20 [facility] [address] [id number] [address] [place] [phone] Jul, Urinary incontinence, unspec ified type R32 [facility] [address] [facility] [id number] [address] [place] [phone] Jul, Anxiety F41.9 and Developmen oscar disorder F89 [facility] [address] [id number] [address] [place] [address] [id number] May, Dental examination Z01.[address] [place] [id number] [place] [address] [id number] Apr, Encounter for dental examination Z01.20 [facility] [address] [id number] Apr, Encounter for dental examina tion and cleaning without abnormal findings Z01.20 [facility] [address] [facility] [id number] [address] [place] [phone] Mar, Developmental disorder F89 a nd Anxiety F41.9 [facility] [address] [id number] [address] [place] [address] [id number] February, Dental examination Z01.20 [facility] [address] [facility] [id number] [address] [place] [phone] February, Essential hypertension I10 [facility] [address] [facility] [id number] [address] [place] [phone] February, Arthralgia M25.50 [facility] [address] [id number] [address] [place] [address] [id number] Jan, Encounter for dental examina tion and cleaning without abnormal findings Z01.20 [facility] [address] [place] [id number] [address] [place] [phone] Dec, [facility] [address] [place] [id number] [address] [place] [phone] Nov, Anxiety F41.9 and Developmen oscar disorder F89 [place] [id number] [place] [phone] Nov, [facility] [address] [place] [id number] [place] [phone] Nov, [place] [address] [phone] Oct, Hyperlipidemia, unspecified hyperlipidemia E78.5 [place] [address] [phone] Oct, Essential hypertension I10 ; Hyperlipidemia, unspecified hyperlipidemia E78.5 and Prostate cancer screening Z12.5 [place] [address] [place] [id number] [address] [place] [phone] Oct, Essential hypertension I10 ; Hyperlipidemia, unspecified hyperlipidemia E78.5 ; Nicotine abuse Z72.0 ; Anxiety F41.9 ; Developmental disorder F89 and Prostate cancer screening Z12.5 [place] [address] [place] [phone] Aug, Anxiety F41.9 and Developmen oscar disorder F89 [place] [address] [place] [id number] [address] [place] [phone] Aug, Essential hypertension I10 a nd Encounter for immunization Z23 [place] [address] [place] [id number] [address] [place] [phone] Aug, Prostate cancer screening Z1 2.5 [place] [address] [place] [id number] [address] [place] [id number] Jun, Hypertension 401.9 [place] [address] [id number] [address] [place] [phone] 18 Jun, 2015 [facility] [address] [facility] [id number] [address] [place] [phone] May, Impulse control disorder, un specified 312.30 ; Generalized anxiety disorder 300.02 ; Other specified pervasive developmental disorders, 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 and 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 [facility] [address] [facility] [id number] [address] [place] [phone] Mar, Hypertension 401.9 [facility] [address] [id number] [address] [place] [address] [id number] Mar, Dental examination V72.2 [facility] [address] [facility] [id number] [address] [place] [phone] February, Hypertension 401.9 and Hyper lipidemia 272.4 [facility] [address] [facility] [id number] [address] [place] [phone] February, [facility] [address] [facility] [id number] [address] [place] [phone] February, Generalized anxiety disorder 300.02 ; Impulse control disorder 312.30 ; 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 and Benign essential HTN 401.1 [facility] [address] [facility] [id number] [address] [place] [phone] Jan, [facility] [address] [facility] [id number] [address] [place] [phone] Jan, [facility] [address] [facility] [id number] [address] [place] [phone] Dec, [facility] [address] [id number] [address] [place] [phone] Dec, [facility] [address] [facility] [id number] [address] [place] [id number] Dec, [facility] [address] [facility] [id number] [address] [place] [phone] Dec, [facility] [address] [id number] [address] [place] [address], [place] [address] 16 Dec, 2014 [facility] [address] [id number] [address] [place] [address], [place] [address] Dec, [facility] [address] [id number] [address] [place] [address], [place] [address] Dec, [facility] [address] [id number] [address] [place] [address], [place] [address] Dec, [facility] [address] [id number] [address] [place] [address], [place] [address] Nov, [facility] [address] [id number] [address] [place] [address], [place] [address] Nov, [facility] [address] [id number] [address] [place] [address], [place] [address] Nov, [facility] [address] [id number] [address] [place] [address], [place] [address] Nov, [facility] [address] [id number] [address] [place] [address], [place] [address] Nov, [facility] [address] [id number] [address] [place] [address], [place] [address] Nov, [facility] [address] [id number] [address] [place] [address], [place] [address] 17 Nov, 2014 [facility] [address] [id number] [address] [place] [address], [place] [address] Nov, [facility] [address] [id number] [address] [place] [address], [place] [address] Oct, [facility] [address] [id number] [address] [place] [address], [place] [address] Oct, [facility] [address] [id number] [address] [place] [address], [place] [address] Oct, [facility] [address] [id number] [address] [place] [phone] Oct, [facility] [address] [id number] [address] [place] [address], [place] [address] Oct, [facility] [address] [id number] [address] [place] [address], [place] [address] Oct, [facility] [address] [id number] [address] [place] [address], [place] [address] Sep, [facility] [address] [id number] [address] [place] [address], [place] [address] Sep, [facility] [address] [id number] [address] [place] [address], [place] [address] Sep, [facility] [address] [id number] [address] [place] [address], [place] [address] Sep, [facility] [address] [id number] [address] [place] [address], [place] [address] Sep, [facility] [address] [id number] [address] [place] [address], [place] [address] Sep, [facility] [address] [id number] [address] [place] [address], [place] [address] Aug, [facility] [address] [id number] [address] [place] [address], [place] [address] Aug, [facility] [address] [id number] [address] [place] [phone] Aug, [facility] [address] [id number] [address] [place] [phone] Aug, [facility] [address] [id number] [address] [place] [address], [place] [address] Jul, [facility] [address] [id number] [address] [place] [address], [place] [address] Jul, [facility] [address] [id number] [address] [place] [address], [place] [address] May, [facility] [address] [id number] [address] [place] [address], [place] [address] May, [facility] [address] [id number] [address] [place] [address], [place] [address] Apr, [facility] [address] [id number] [address] [place] [address], [place] [address] Apr, [facility] [address] [id number] [address] [place] [address], [place] [address] Mar, [facility] [address] [id number] [address] [place] [address], [place] [address] Mar, [facility] [address] [id number] [address] [place] [address], [place] [address] Mar, [facility] [address] [id number] [address] [place] [address], [place] [address] Mar, [facility] [address] [id number] [address] [place] [address], [place] [address] February, [facility] [address] [id number] [address] [place] [address], [place] [address] February, [facility] [address] [id number] [address] [place] [address], [place] [address] Jan, [facility] [address] [id number] [address] [place] [address], [place] [address] Jan, [facility] [address] [id number] [address] [place] [address], [place] [address] Oct, [facility] [address] [id number] [address] [place] [address], [place] [address] Oct, [facility] [address] [id number] [address] [place] [address], [place] [address] Oct, [facility] [address] [id number] [address] [place] [address], [place] [address] Oct, [facility] [address] [id number] [address] [place] [address], [place] [address] Oct, [facility] [address] [id number] [address] [place] [address], [place] [address] Oct, [facility] [address] [id number] [address] [place] [address], [place] [address] Oct, [facility] [address] [id number] [address] [place] [address], [place] [address] Oct, [facility] [address] [id number] [address] [place] [address], [place] [address] Oct, [facility] [address] [id number] [address] [place] [address], [place] [address] Dec, [facility] [address] [id number] [address] [place] [address], [place] [address] Sep, [facility] [address] [id number] [address] [place] [address], [place] [address] Sep, [facility] [address] [id number] [address] [place] [address], [place] [address] May, [facility] [address] [id number] [address] [place] [address], [place] [address] Apr, [facility] [address] [id number] [address] [place] [address], [place] [address] Apr, [facility] [address] [id number] [address] [place] [address], [place] [address] Apr, [facility] [id number] [place] [id number] February, [facility] [address] [id number] [address] [place] [address], [place] [address] Jan, [facility] [address] [id number] [address] [place] [address], [place] [id number] Dec, [facility] [address] [id number] [address] [place] [address], [place] [address] Sep, [facility] [address] [id number] [place] [address] Sep, [facility] [address] [facility] [id number] [address] [place] [id number] Aug, [facility] [address] [facility] [id number] [address] [place] [id number] Aug, [facility] [address] [facility] [id number] [address] [place] [id number] Jul, [facility] [address] [facility] [id number] [address] [place] [id number] Mar, [facility] [address] [facility] [id number] [address] [place] [id number] Mar, [facility] [address] [facility] [id number] [address] [place] [id number] Mar, IMMUNIZATIONS No Known Immunizations SOCIAL HISTORY [...]
--- OUTSIDE RECORDS SUMMARY | 2020-01-04 10:17 | XMS REPORT ---
Author Author Anton FAY Organization [facility] [place] Address [address] [place] [address] Care Team Providers Care Parts Driver Name Role Phone TWAN FAY Unavailable PROBLEMS Type Condition ICD9-CM Code KCD81-AL Code Onset Dates Condition S tatus SNOMED Code Problem Essential hypertension I10 Active 79907182 Problem Urinary incontinence, unspecified type R32 Active 974441087 Problem Hyperglycemia R73.9 Active 509603 07 Problem Anxiety F41.9 Active 09592730 Problem Hyperlipidemia, unspecified hyperlipidemia E78.5 Active 54188519 Problem Nicotine abuse Z72.0 Active 45408 008 Problem Developmental disorder F89 Active 3046029 ALLERGIES No Information ENCOUNTERS Encounter Location Date Diagnosis [facility] [place] [address] [facility] [id number] [address] [place] [phone] May, [facility] [place] [address] [facility] [id number] [address] [place] [phone] February, [facility] [place] [address] [facility] [id number] [address] [place] [id number] February, Anxiety F41.9 ; Developmenta l disorder F89 and Nicotine abuse Z72.0 [facility] [place] [address] [facility] [id number] [address] [place] [id number] February, Essential hypertension I10 a nd Impacted cerumen, bilateral H61.23 [facility] [address] [id number] [address] [place] [address] [id number] Dec, Oral health maintenance stat us requiring routine preventive dental care K08.9 [facility] [place] [address] [facility] [id number] [address] [place] [id number] Dec, Developmental disorder F89 a nd Anxiety F41.9 [facility] [place] [address] [facility] [id number] [address] [place] [id number] 28 Nov, 2018 [facility] [place] [address] [facility] [id number] [address] [place] [phone] Nov, Essential hypertension I10 [facility] [place] [address] [facility] [id number] [address] [place] [phone] Nov, Essential hypertension I10 [facility] [place] [address] [facility] [id number] [address] [place] [phone] Nov, Developmental disorder F89 a nd Anxiety F41.9 [facility] [place] [address] [facility] [id number] [address] [place] [phone] Nov, [facility] [place] [address] [facility] [id number] [address] [place] [phone] Nov, Essential hypertension I10 [facility] [place] [address] [facility] [id number] [address] [place] [id number] Oct, Elevated blood sugar R73.09 [facility] [place] [address] [facility] [id number] [address] [place] [phone] Oct, Elevated blood sugar R73.09 [facility] [place] [address] [facility] [id number] [address] [place] [id number] Oct, Encounter for Medicare annua l wellness exam Z00.00 ; Screening PSA (prostate specific antigen) Z12.5 ; Essential hypertension I10 ; Hyperlipidemia, unspecified hyperlipidemia E78.5 ; Nicotine abuse Z72.0 ; Anxiety F41.9 ; Bilateral impacted cerumen H61.23 and Developmental disorder F89 [facility] [place] [address] [facility] [id number] [address] [place] [phone] Oct, Encounter for Medicare annua l wellness exam Z00.00 ; Essential hypertension I10 ; Hyperlipidemia, unspecified hyperlipidemia E78.5 ; Nicotine abuse Z72.0 ; Anxiety F41.9 ; Developmental disorder F89 and Screening PSA (prostate specific antigen) Z12.5 [facility] [address] [facility] [id number] [address] [place] [address] [id number] Sep, Dental examination Z01.20 [facility] [place] [address] [place] [id number] [address] [place] [id number] 16 Jul, 2018 Developmental disorder F89 a nd Anxiety F41.9 [facility] [place] [address] [place] [id number] [place] [id number] 26 Jun, 2018 Essential hypertension I10 ; Nicotine abuse Z72.0 and Encounter for immunization Z23 [facility] [address] [facility] [id number] [place] [address] [id number] Apr, Dental examination Z01.20 [facility] [address] [id number] Jan, Dental examination Z01.20 [facility] [place] [address] [phone] Dec, Developmental disorder F89 a nd Anxiety F41.9 [facility] [place] [address] [id number] 14 Nov, 2017 Essential hypertension I10 ; Hyperlipidemia, unspecified hyperlipidemia E78.5 ; Nicotine abuse Z72.0 and Bilateral impacted cerumen H61.23 [facility] [place] [address] [place] [id number] [address] [place] [id number] Oct, [facility] [address] [place] [id number] [place] [address] [id number] Sep, Encounter for dental exam an d cleaning w/o abnormal findings Z01.20 [facility] [place] [address] [place] [id number] [address] [place] [id number] 11 Sep, 2017 Medicare annual wellness vis it, initial Z00.00 and Encounter for immunization Z23 [facility] [place] [address] [id number] 28 Aug, 2017 Encounter for immunization Z 23 ; Developmental disorder F89 and Anxiety F41.9 [facility] [address] [place] [id number] [place] [address] [id number] 13 Jun, 2017 Encounter for dental examina tion and cleaning without abnormal findings Z01.20 [facility] [place] [address] [id number] [address] [place] [id number] 27 Apr, 2017 Anxiety F41.9 and Developmen oscar disorder F89 [facility] [place] [address] [id number] [address] [place] [phone] Apr, Essential hypertension I10 a nd Nicotine abuse Z72.[id number] [place] [address] [id number] Mar, Dental examination Z01.20 [facility] [address] [id number] [address] [place] [address] [id number] Mar, Encounter for dental examina tion and cleaning without abnormal findings Z01.20 [facility] [place] [address] [id number] [address] [place] [phone] Jan, [facility] [place] [address] [facility] [id number] [address] [place] [phone] Dec, Developmental disorder F89 a nd Anxiety F41.9 [facility] [address] [id number] [address] [place] [address] [id number] Dec, Encounter for dental examina tion and cleaning without abnormal findings Z01.20 [facility] [place] [address] [id number] [address] [place] [phone] Sep, Encounter for immunization Z 23 [facility] [place] [address] [facility] [id number] [address] [place] [phone] Sep, Prostate cancer screening Z1 2.5 and Hyperlipidemia, unspecified hyperlipidemia E78.5 [facility] [place] [address] [facility] [id number] [address] [place] [phone] 06 Sep, 2016 Annual physical exam Z00.00 ; Encounter for immunization Z23 ; Essential hypertension I10 ; Hyperlipidemia, unspecified hyperlipidemia E78.5 ; Anxiety F41.9 ; Prostate cancer screening Z12.5 and Nicotine abuse Z72.0 [facility] [place] [address] [facility] [id number] [address] [place] [phone] Aug, [facility] [place] [address] [id number] [address] [place] [phone] Jul, Urinary incontinence, unspec ified type R32 [facility] [address] [id number] [address] [place] [address] [id number] Jul, Dental examination Z01.20 [facility] [place] [address] [id number] [address] [place] [phone] Jul, Urinary incontinence, unspec ified type R32 [facility] [place] [address] [id number] [address] [place] [phone] Jul, Anxiety F41.9 and Developmen oscar disorder F89 [facility] [address] [id number] [address] [place] [address] [id number] May, Dental examination Z01.20 [place] [id number] [facility] [id number] [place] [address] [id number] Apr, Encounter for dental examination Z01.20 [facility] [address] [id number] [place] [address] [id number] Apr, Encounter for dental examina tion and cleaning without abnormal findings Z01.20 [facility] [place] [address] [facility] [id number] [address] [place] [phone] Mar, Developmental disorder F89 a nd Anxiety F41.9 [facility] [address] [id number] [address] [place] [address] [id number] February, Dental examination Z01.20 [facility] [place] [address] [id number] [address] [place] [phone] February, Essential hypertension I10 [facility] [place] [address] [id number] [address] [place] [phone] February, Arthralgia M25.50 [facility] [address] [id number] [address] [place] [address] [id number] Jan, Encounter for dental examina tion and cleaning without abnormal findings Z01.20 [facility] [place] [address] [facility] [id number] [address] [place] [phone] Dec, [facility] [place] [address] [facility] [id number] [address] [place] [phone] Nov, Anxiety F41.9 and Developmen oscar disorder F89 [facility] [place] [address] [place] [id number] [address] [place] [phone] Nov, [facility] [place] [address] [id number] Nov, [facility] [place] [address] [place] [id number] [address] [place] [phone] Oct, Hyperlipidemia, unspecified hyperlipidemia E78.5 [place] [address] [phone] Oct, Essential hypertension I10 ; Hyperlipidemia, unspecified hyperlipidemia E78.5 and Prostate cancer screening Z12.5 [place] [address] [place] [id number] [address] [place] [phone] Oct, Essential hypertension I10 ; Hyperlipidemia, unspecified hyperlipidemia E78.5 ; Nicotine abuse Z72.0 ; Anxiety F41.9 ; Developmental disorder F89 and Prostate cancer screening Z12.5 [facility] [place] [id number] [place] [phone] Aug, Anxiety F41.9 and Developmen oscar disorder F89 [place] [address] [place] [id number] [address] [place] [phone] Aug, Essential hypertension I10 a nd Encounter for immunization Z23 [facility] [place] [address] [place] [id number] [address] [place] [phone] Aug, Prostate cancer screening Z1 2.5 [place] [id number] [place] [phone] 29 Jun, 2015 Hypertension 401.9 [facility] [place] [address] [place] [id number] [address] [place] [id number] 18 Jun, 2015 [facility] [place] [address] [id number] [address] [place] [phone] May, Impulse control disorder, un specified 312.30 ; Generalized anxiety disorder 300.02 ; Other specified pervasive developmental disorders, 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 and 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 [facility] [place] [address] [facility] [id number] [address] [place] [phone] 17 Mar, 2015 Hypertension 401.9 [facility] [address] [id number] [address] [place] [address] [id number] 15 Mar, 2015 Dental examination V72.2 [facility] [place] [address] [facility] [id number] [address] [place] [phone] February, Hypertension 401.9 and Hyper lipidemia 272.4 [facility] [place] [address] [facility] [id number] [address] [place] [phone] February, [facility] [place] [address] [facility] [id number] [address] [place] [phone] February, Generalized anxiety disorder 300.02 ; Impulse control disorder 312.30 ; 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 and Benign essential HTN 401.1 [facility] [place] [address] [id number] [address] [place] [phone] Jan, [facility] [place] [address] [facility] [id number] [address] [place] [phone] Jan, [facility] [place] [address] [facility] [id number] [address] [place] [id number] 18 Dec, 2014 [facility] [place] [address] [facility] [id number] [address] [place] [phone] 18 Dec, 2014 [facility] [place] [address] [id number] [address] [place] [phone] Dec, [facility] [place] [address] [facility] [id number] [address] [place] [phone] 17 Dec, 2014 [facility] [place] [address] [facility] [id number] [address] [place] [phone] 16 Dec, 2014 [facility] [address] [id number] [address] [place] [address], [place] [id number] 16 Dec, 2014 [facility] [address] [id number] [address] [place] [address], [place] [id number] Dec, [facility] [address] [id number] [address] [place] [address], [place] [id number] Dec, [facility] [address] [id number] [address] [place] [address], [place] [id number] Nov, [facility] [address] [id number] [address] [place] [address], [place] [address] Nov, [facility] [address] [id number] [address] [place] [address], [place] [address] Nov, [facility] [address] [id number] [address] [place] [address], [place] [id number] Nov, [facility] [address] [id number] [address] [place] [address], [place] [id number] Nov, [facility] [address] [id number] [address] [place] [address], [place] [address] Nov, [facility] [address] [id number] [address] [place] [address], [place] [address] Nov, [facility] [address] [id number] [address] [place] [address], [place] [id number] Nov, [facility] [address] [id number] [address] [place] [phone] Oct, [facility] [address] [id number] [address] [place] [address], [place] [address] Oct, [facility] [address] [id number] [address] [place] [address], [place] [id number] Oct, [facility] [address] [id number] [address] [place] [address], [place] [id number] Oct, [facility] [address] [id number] [address] [place] [phone] Oct, [facility] [address] [id number] [address] [place] [address], [place] [id number] Oct, [facility] [address] [id number] [address] [place] [address], [place] [id number] Sep, [facility] [address] [id number] [address] [place] [address], [place] [id number] Sep, [facility] [address] [id number] [address] [place] [address], [place] [address] Sep, [facility] [address] [id number] [address] [place] [address], [place] [id number] Sep, [facility] [address] [id number] [address] [place] [address], [place] [address] Sep, [facility] [address] [id number] [address] [place] [address], [place] [id number] Sep, [facility] [address] [id number] [address] [place] [address], [place] [address] Aug, [facility] [address] [id number] [address] [place] [address], [place] [id number] Aug, [facility] [address] [id number] [address] [place] [address], [place] [id number] Aug, [facility] [address] [id number] [address] [place] [address], [place] [address] Aug, [facility] [address] [id number] [address] [place] [address], [place] [id number] Jul, [facility] [address] [id number] [address] [place] [address], [place] [address] Jul, [facility] [address] [id number] [address] [place] [address], [place] [address] May, [facility] [address] [id number] [address] [place] [address], [place] [address] May, [facility] [address] [id number] [address] [place] [address], [place] [id number] 15 Apr, 2014 [facility] [address] [id number] [address] [place] [address], [place] [address] Apr, [facility] [address] [id number] [address] [place] [address], [place] [id number] Mar, [facility] [address] [id number] [address] [place] [address], [place] [address] Mar, [facility] [address] [id number] [address] [place] [address], [place] [address] Mar, [facility] [address] [id number] [address] [place] [address], [place] [id number] Mar, [facility] [address] [id number] [address] [place] [address], [place] [id number] February, [facility] [address] [id number] [address] [place] [address], [place] [id number] February, [facility] [address] [id number] [address] [place] [address], [place] [id number] Jan, [facility] [address] [id number] [address] [place] [address], [place] [id number] Jan, [facility] [address] [id number] [address] [place] [address], [place] [address] Oct, [facility] [address] [id number] [address] [place] [address], [place] [id number] Oct, [facility] [address] [id number] [address] [place] [address], [place] [address] Oct, [facility] [address] [id number] [address] [place] [address], [place] [address] Oct, [facility] [address] [id number] [address] [place] [address], [place] [id number] Oct, [facility] [address] [id number] [address] [place] [address], [place] [address] Oct, [facility] [address] [id number] [address] [place] [address], [place] [address] Oct, [facility] [address] [id number] [address] [place] [address], [place] [id number] Oct, [facility] [address] [id number] [address] [place] [address], [place] [address] Oct, [facility] [address] [id number] [address] [place] [address], [place] [id number] Dec, [facility] [address] [id number] [address] [place] [address], [place] [id number] Sep, [facility] [address] [id number] [address] [place] [address], [place] [address] Sep, [facility] [address] [id number] [address] [place] [address], [place] [address] May, [facility] [address] [id number] [address] [place] [address], [place] [address] Apr, [facility] [address] [id number] [address] [place] [address], [place] [id number] Apr, [facility] [address] [id number] [address] [place] [address], [place] [id number] Apr, [facility] [address] [id number] [id number] February, [facility] [address] [id number] [address] [place] [address], [place] [id number] Jan, [facility] [address] [id number] [address] [place] [address], [place] [id number] Dec, [facility] [address] [id number] [address] [place] [address], [place] [id number] Sep, [facility] [address] [id number] [address] [place] [address], [place] [id number] Sep, [facility] [address] [id number] [address] [address] Aug, [facility] [place] [address] [facility] [id number] [address] [place] [id number] Aug, [facility] [place] [address] [facility] [id number] [address] [place] [id number] Jul, [facility], [place] [address] [facility] [id number] [address] [place] [id number] Mar, [facility], [place] [address] [facility] [id number] [address] [place] [id number] 15 Mar, 2011 [facility], [place] [address] [facility] [id number] [address] [place] [id number] Mar, IMMUNIZATIONS No Known Immunizations SOCIAL HISTORY [...]
--- OUTSIDE RECORDS SUMMARY | 2020-01-04 10:17 | XMS REPORT ---
Author Author Anton TAYLOR Organization [facility] Address [address] [place] [address] Care Team Providers Care Senior Quality Methods Specialist Name Role Phone BREN TAYLOR Unavailable PROBLEMS Type Condition ICD9-CM Code VSN46-QY Code Onset Dates Condition S tatus SNOMED Code Problem Essential hypertension I10 Active 59333374 Problem Urinary incontinence, unspecified type R32 Active 284784865 Problem Hyperglycemia R73.9 Active 553193 07 Problem Anxiety F41.9 Active 07106644 Problem Hyperlipidemia, unspecified hyperlipidemia E78.5 Active 95880175 Problem Nicotine abuse Z72.0 Active 05803 008 Problem Developmental disorder F89 Active [id number] ALLERGIES No Information ENCOUNTERS Encounter Location Date Diagnosis [facility] [address] [facility] [id number] [address] [place] [phone] May, [facility] [address] [facility] [id number] [address] [place] [phone] February, [facility] [address] [facility] [id number] [address] [place] [phone] February, Anxiety F41.9 ; Developmenta l disorder F89 and Nicotine abuse Z72.0 [facility] [address] [facility] [id number] [address] [place] [phone] February, Essential hypertension I10 a nd Impacted cerumen, bilateral H61.23 [facility] [address] [id number] [address] [place] [address] [id number] Dec, Oral health maintenance stat us requiring routine preventive dental care K08.9 [facility] [address] [facility] [id number] [address] [place] [phone] Dec, Developmental disorder F89 a nd Anxiety F41.9 [facility] [address] [facility] [id number] [address] [place] [phone] Nov, [facility] [address] [facility] [id number] [address] [place] [phone] Nov, Essential hypertension I10 [facility] [address] [facility] [id number] [address] [place] [phone] Nov, Essential hypertension I10 [facility] [address] [facility] [id number] [address] [place] [phone] Nov, Developmental disorder F89 a nd Anxiety F41.9 [facility] [address] [facility] [id number] [address] [place] [phone] Nov, [facility] [address] [facility] [id number] [address] [place] [phone] Nov, Essential hypertension I10 [facility] [address] [facility] [id number] [address] [place] [phone] Oct, Elevated blood sugar R73.09 [facility] [address] [facility] [id number] [address] [place] [phone] Oct, Elevated blood sugar R73.09 [facility] [address] [facility] [id number] [address] [place] [phone] Oct, Encounter for Medicare annua l wellness exam Z00.00 ; Screening PSA (prostate specific antigen) Z12.5 ; Essential hypertension I10 ; Hyperlipidemia, unspecified hyperlipidemia E78.5 ; Nicotine abuse Z72.0 ; Anxiety F41.9 ; Bilateral impacted cerumen H61.23 and Developmental disorder F89 [facility] [address] [facility] [id number] [address] [place] [phone] 14 Oct, 2018 Encounter for Medicare annua l wellness exam Z00.00 ; Essential hypertension I10 ; Hyperlipidemia, unspecified hyperlipidemia E78.5 ; Nicotine abuse Z72.0 ; Anxiety F41.9 ; Developmental disorder F89 and Screening PSA (prostate specific antigen) Z12.5 [facility] [address] [id number] [address] [place] [address] [id number] Sep, Dental examination Z01.20 [facility] [address] [facility] [id number] [address] [place] [phone] 16 Jul, 2018 Developmental disorder F89 a nd Anxiety F41.9 [facility] [address] [facility] [id number] [address] [place] [phone] Jun, Essential hypertension I10 ; Nicotine abuse Z72.0 and Encounter for immunization Z23 [facility] [address] [id number] [place] [address] [id number] Apr, Dental examination Z01.20 [facility] [address] [facility] [id number] [id number] Jan, Dental examination Z01.20 [facility] [address] [facility] [id number] [place] [phone] Dec, Developmental disorder F89 a nd Anxiety F41.9 [facility] [address] [place] [id number] [place] [phone] 14 Nov, 2017 Essential hypertension I10 ; Hyperlipidemia, unspecified hyperlipidemia E78.5 ; Nicotine abuse Z72.0 and Bilateral impacted cerumen H61.23 [facility] [address] [place] [id number] [address] [place] [phone] Oct, [facility] [address] [place] [id number] [address] [place] [address] [id number] Sep, Encounter for dental exam an d cleaning w/o abnormal findings Z01.20 [facility] [address] [place] [id number] [address] [place] [phone] 11 Sep, 2017 Medicare annual wellness vis it, initial Z00.00 and Encounter for immunization Z23 [facility] [address] [place] [id number] [place] [phone] 28 Aug, 2017 Encounter for immunization Z 23 ; Developmental disorder F89 and Anxiety F41.9 [facility] [address] [facility] [id number] [address] [place] [address] [id number] 13 Jun, 2017 Encounter for dental examina tion and cleaning without abnormal findings Z01.20 [facility] [address] [id number] [address] [place] [phone] 27 Apr, 2017 Anxiety F41.9 and Developmen oscar disorder F89 [facility] [address] [facility] [id number] [address] [place] [phone] Apr, Essential hypertension I10 a nd Nicotine abuse Z72.[address] [id number] [id number] Mar, Dental examination Z01.20 [facility] [address] [id number] [address] [place] [address] [id number] Mar, Encounter for dental examina tion and cleaning without abnormal findings Z01.20 [facility] [address] [facility] [id number] [address] [place] [phone] Jan, [facility] [address] [facility] [id number] [address] [place] [phone] Dec, Developmental disorder F89 a nd Anxiety F41.9 [facility] [address] [id number] [address] [place] [address] [id number] Dec, Encounter for dental examina tion and cleaning without abnormal findings Z01.20 [facility] [address] [facility] [id number] [address] [place] [phone] Sep, Encounter for immunization Z 23 [facility] [address] [facility] [id number] [address] [place] [phone] 08 Sep, 2016 Prostate cancer screening Z1 2.5 and Hyperlipidemia, unspecified hyperlipidemia E78.5 [facility] [address] [facility] [id number] [address] [place] [phone] 06 Sep, 2016 Annual physical exam Z00.00 ; Encounter for immunization Z23 ; Essential hypertension I10 ; Hyperlipidemia, unspecified hyperlipidemia E78.5 ; Anxiety F41.9 ; Prostate cancer screening Z12.5 and Nicotine abuse Z72.0 [facility] [address] [facility] [id number] [address] [place] [phone] Aug, [place] [id number] [id number] [address] [place] [phone] Jul, Urinary incontinence, unspec ified type R32 [facility] [address] [id number] [address] [place] [address] [id number] Jul, Dental examination Z01.20 [facility] [address] [id number] [address] [place] [phone] Jul, Urinary incontinence, unspec ified type R32 [facility] [address] [id number] [address] [place] [phone] Jul, Anxiety F41.9 and Developmen oscar disorder F89 [facility] [address] [id number] [address] [place] [address] [id number] May, Dental examination Z01.[id number] [place] [address] [id number] Apr, Encounter for dental examination Z01.20 [facility] [address] [id number] [place] [address] [id number] Apr, Encounter for dental examina tion and cleaning without abnormal findings Z01.20 [facility] [address] [id number] [address] [place] [phone] Mar, Developmental disorder F89 a nd Anxiety F41.9 [facility] [address] [id number] [address] [place] [address] [id number] February, Dental examination Z01.20 [facility] [address] [id number] [address] [place] [phone] February, Essential hypertension I10 [facility] [address] [id number] [address] [place] [phone] February, Arthralgia M25.50 [facility] [address] [id number] [address] [place] [address] [id number] Jan, Encounter for dental examina tion and cleaning without abnormal findings Z01.20 [facility] [id number] [place] [phone] Dec, [facility] [address] [id number] Nov, Anxiety F41.9 and Developmen oscar disorder F89 [facility] [address] [phone] Nov, [facility] [address] [phone] Nov, [facility] [address] [id number] Oct, Hyperlipidemia, unspecified hyperlipidemia E78.5 [facility] [address] [id number] Oct, Essential hypertension I10 ; Hyperlipidemia, unspecified hyperlipidemia E78.5 and Prostate cancer screening Z12.5 [facility] [address] [id number] Oct, Essential hypertension I10 ; Hyperlipidemia, unspecified hyperlipidemia E78.5 ; Nicotine abuse Z72.0 ; Anxiety F41.9 ; Developmental disorder F89 and Prostate cancer screening Z12.5 [facility] [address] [id number] Aug, Anxiety F41.9 and Developmen oscar disorder F89 [facility] [address] [id number] Aug, Essential hypertension I10 a nd Encounter for immunization Z23 [facility] [address] [place] [id number] [address] [place] [phone] 04 Aug, 2015 Prostate cancer screening Z1 2.5 [place] [address] [phone] 29 Jun, 2015 Hypertension 401.9 [facility] [address] [id number] 18 Jun, 2015 [facility] [address] [place] [id number] [address] [place] [phone] May, Impulse control disorder, un specified 312.30 ; Generalized anxiety disorder 300.02 ; Other specified pervasive developmental disorders, 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 [id number] [address] [place] [phone] 17 Mar, 2015 Hypertension 401.9 [facility] [address] [id number] [address] [place] [address] [id number] 15 Mar, 2015 Dental examination V72.2 [facility] [address] [facility] [id number] [address] [place] [phone] February, Hypertension 401.9 and Hyper lipidemia 272.4 [facility] [address] [facility] [id number] [address] [place] [phone] February, [facility] [address] 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 [id number] [address] [place] [phone] Jan, [facility] [address] [facility] [id number] [address] [place] [phone] Jan, [facility] [address] [facility] [id number] [address] [place] [phone] 18 Dec, 2014 [facility] [address] [facility] [id number] [address] [place] [phone] 18 Dec, 2014 [facility] [address] [facility] [id number] [address] [place] [phone] Dec, [facility] [address] [facility] [id number] [address] [place] [phone] 17 Dec, 2014 [facility] [address] [facility] [id number] [address] [place] [phone] 16 Dec, 2014 [facility] [address] [id number] [address] [place] [address], [place] [id number] 16 Dec, 2014 [facility] [address] [id number] [address] [place] [address], [place] [id number] Dec, [facility] [address] [id number] [address] [place] [address], [place] [id number] Dec, [facility] [address] [id number] [address] [place] [address], [place] [id number] 20 Nov, 2014 [facility] [address] [id number] [address] [place] [address], [place] [id number] Nov, 2014 [facility] [address] [id number] [address] [place] [address], [place] [id number] Nov, 2014 [facility] [address] [id number] [address] [place] [address], [place] [id number] Nov, 2014 [facility] [address] [id number] [address] [place] [address], [place] [id number] 18 Nov, 2014 [facility] [address] [id number] [address] [place] [address], [place] [id number] Nov, [facility] [address] [id number] [address] [place] [address], [place] [id number] Nov, [facility] [address] [id number] [address] [place] [address], [place] [id number] Nov, [facility] [address] [id number] [address] [place] [address], [place] [id number] Oct, [facility] [address] [id number] [address] [place] [address], [place] [id number] Oct, [facility] [address] [id number] [address] [place] [address], [place] [id number] Oct, [facility] [address] [id number] [address] [place] [address], [place] [id number] Oct, [facility] [address] [id number] [address] [place] [address], [place] [id number] Oct, [facility] [address] [id number] [address] [place] [address], [place] [id number] Oct, [facility] [address] [id number] [address] [place] [address], [place] [id number] Sep, [facility] [address] [id number] [address] [place] [address], [place] [id number] Sep, [facility] [address] [id number] [address] [place] [address], [place] [id number] Sep, [facility] [address] [id number] [address] [place] [address], [place] [id number] Sep, [facility] [address] [id number] [address] [place] [address], [place] [id number] Sep, [facility] [address] [id number] [address] [place] [address], [place] [id number] Sep, [facility] [address] [id number] [address] [place] [address], [place] [id number] Aug, [facility] [address] [id number] [address] [place] [address], [place] [id number] Aug, [facility] [address] [id number] [address] [place] [address], [place] [id number] Aug, [facility] [address] [id number] [address] [place] [address], [place] [id number] Aug, [facility] [address] [id number] [address] [place] [address], [place] [id number] Jul, [facility] [address] [id number] [address] [place] [address], [place] [id number] Jul, [facility] [address] [id number] [address] [place] [address], [place] [id number] May, [facility] [address] [id number] [address] [place] [address], [place] [id number] May, [facility] [address] [id number] [address] [place] [address], [place] [id number] 15 Apr, 2014 [facility] [address] [id number] [address] [place] [address], [place] [id number] Apr, [facility] [address] [id number] [address] [place] [address], [place] [id number] Mar, [facility] [address] [id number] [address] [place] [address], [place] [address] Mar, [facility] [address] [id number] [address] [place] [address], [place] [id number] Mar, [facility] [address] [id number] [address] [place] [address], [place] [address] Mar, [facility] [address] [id number] [address] [place] [address], [place] [address] February, [facility] [address] [id number] [address] [place] [address], [place] [id number] February, [facility] [address] [id number] [address] [place] [address], [place] [id number] Jan, [facility] [address] [id number] [address] [place] [address], [place] [id number] Jan, [facility] [address] [id number] [address] [place] [address], [place] [id number] Oct, [facility] [address] [id number] [address] [place] [address], [place] [id number] Oct, [facility] [address] [id number] [address] [place] [address], [place] [address] Oct, [facility] [address] [id number] [address] [place] [address], [place] [id number] Oct, [facility] [address] [id number] [address] [place] [address], [place] [id number] Oct, [facility] [address] [id number] [address] [place] [address], [place] [address] Oct, [facility] [address] [id number] [address] [place] [address], [place] [id number] Oct, [facility] [address] [id number] [address] [place] [address], [place] [id number] Oct, [facility] [address] [id number] [address] [place] [address], [place] [id number] Oct, [facility] [address] [id number] [address] [place] [address], [place] [id number] Dec, [facility] [address] [id number] [address] [place] [address], [place] [id number] Sep, [facility] [address] [id number] [address] [place] [address], [place] [address] Sep, [facility] [address] [id number] [address] [place] [address], [place] [address] May, [facility] [address] [id number] [address] [place] [address], [place] [address] Apr, [facility] [address] [id number] [address] [place] [address], [place] [address] Apr, [facility] [address] [id number] [address] [place] [address], [place] [id number] Apr, [facility] [address] [id number] [place] [id number] February, [facility] [address] [id number] [address] [place] [address], [place] [address] Jan, [facility] [address] [id number] [address] [place] [address], [place] [address] Dec, [facility] [address] [id number] [address] [place] [address], [place] [id number] Sep, [facility] [address] [id number] [address] [place] [address], [place] [address] Sep, [facility] [address] [id number] [address] [place] [address], [place] [id number] Aug, [facility] [address] [facility] [id number] [address] [place] [id number] Aug, [facility] [address] [facility] [id number] [address] [place] [id number] Jul, [facility] [address] [facility] [id number] [address] [place] [id number] 17 Mar, 2011 [facility] [address] [facility] [id number] [address] [place] [id number] 15 Mar, 2011 [facility] [address] [facility] [id number] [address] [place] [id number] Mar, IMMUNIZATIONS No Known Immunizations SOCIAL HISTORY [...]
--- OUTSIDE RECORDS SUMMARY | 2020-01-04 10:17 | XMS REPORT ---
Author Author Anton CHAVEZ Organization [facility] Address [address] [place] [address] Care Team Providers Care Clinical Educator Name Role Phone SCOTTMIKEARIEL Unavailable PROBLEMS Type Condition ICD9-CM Code [id number] Code Onset Dates Condition S tatus SNOMED Code Problem Essential hypertension I10 Active 64287534 Problem Urinary incontinence, unspecified type R32 Active 651147776 Problem Hyperglycemia R73.9 Active 846988 07 Problem Anxiety F41.9 Active 93531414 Problem Hyperlipidemia, unspecified hyperlipidemia E78.5 Active 23586373 Problem Nicotine abuse Z72.0 Active 50697 008 Problem Developmental disorder F89 Active 0864314 ALLERGIES No Information ENCOUNTERS Encounter Location Date Diagnosis [facility] [address] [facility] [id number] [address] [place] [phone] May, [facility] [address] [facility] [id number] [address] [place] [phone] Apr, [facility] [address] [facility] [id number] [address] [place] [phone] February, [facility] [address] [facility] [id number] [address] [place] [phone] February, Anxiety F41.9 ; Developmenta l disorder F89 and Nicotine abuse Z72.0 [facility] [address] [facility] [id number] [address] [place] [address] February, Essential hypertension I10 a nd Impacted cerumen, bilateral H61.23 [facility] [address] [id number] [address] [place] [address] [id number] Dec, Oral health maintenance stat us requiring routine preventive dental care K08.9 [facility] [address] [facility] [id number] [address] [place] [phone] Dec, Developmental disorder F89 a nd Anxiety F41.9 [facility] [address] [facility] [id number] [address] [place] [phone] Nov, [facility] [address] [facility] [id number] [address] [place] [phone] Nov, Essential hypertension I10 [facility] [address] [facility] [id number] [address] [place] [phone] Nov, Essential hypertension I10 [facility] [address] [id number] [address] [place] [phone] Nov, Developmental disorder F89 a nd Anxiety F41.9 [facility] [address] [facility] [id number] [address] [place] [phone] Nov, [facility] [address] [facility] [id number] [address] [place] [phone] Nov, Essential hypertension I10 [facility] [address] [facility] [id number] [address] [place] [phone] Oct, Elevated blood sugar R73.09 [facility] [address] [facility] [id number] [address] [place] [phone] Oct, Elevated blood sugar R73.09 [place] [address] [facility] [id number] [address] [place] [phone] Oct, Encounter for Medicare annua l wellness exam Z00.00 ; Screening PSA (prostate specific antigen) Z12.5 ; Essential hypertension I10 ; Hyperlipidemia, unspecified hyperlipidemia E78.5 ; Nicotine abuse Z72.0 ; Anxiety F41.9 ; Bilateral impacted cerumen H61.23 and Developmental disorder F89 [facility] [address] [facility] [id number] [address] [place] [phone] Oct, Encounter for Medicare annua l wellness exam Z00.00 ; Essential hypertension I10 ; Hyperlipidemia, unspecified hyperlipidemia E78.5 ; Nicotine abuse Z72.0 ; Anxiety F41.9 ; Developmental disorder F89 and Screening PSA (prostate specific antigen) Z12.5 [facility] [address] [id number] [address] [place] [address] [phone] Sep, Dental examination Z01.20 [facility] [address] [id number] [address] [place] [phone] 16 Jul, 2018 Developmental disorder F89 a nd Anxiety F41.9 [facility] [address] [id number] [address] [place] [phone] Jun, Essential hypertension I10 ; Nicotine abuse Z72.0 and Encounter for immunization Z23 [facility] [address] [id number] [address] [place] [address] [phone] Apr, Dental examination Z01.20 [facility] [address] [id number] [address] [place] [address] [phone] Jan, Dental examination Z01.20 [facility] [address] [facility] [id number] [address] [place] [phone] Dec, Developmental disorder F89 a nd Anxiety F41.9 [facility] [address] [facility] [id number] [address] [place] [phone] 14 Nov, 2017 Essential hypertension I10 ; Hyperlipidemia, unspecified hyperlipidemia E78.5 ; Nicotine abuse Z72.0 and Bilateral impacted cerumen H61.23 [facility] [address] [facility] [id number] [address] [place] [phone] Oct, [facility] [address] [id number] [address] [place] [address] [phone] Sep, Encounter for dental exam an d cleaning w/o abnormal findings Z01.20 [facility] [address] [facility] [id number] [address] [place] [phone] Sep, Medicare annual wellness vis it, initial Z00.00 and Encounter for immunization Z23 [facility] [address] [facility] [id number] [address] [place] [phone] Aug, Encounter for immunization Z 23 ; Developmental disorder F89 and Anxiety F41.9 [facility] [address] [id number] [address] [place] [address] [phone] 13 Jun, 2017 Encounter for dental examina tion and cleaning without abnormal findings Z01.20 [facility] [address] [id number] [address] [place] [phone] 27 Apr, 2017 Anxiety F41.9 and Developmen oscar disorder F89 [facility] [address] [facility] [id number] [address] [place] [phone] 17 Apr, 2017 Essential hypertension I10 a nd Nicotine abuse Z72.0 [facility] [address] [id number] [phone] Mar, Dental examination Z01.20 [facility] [address] [id number] [address] [place] [address] [id number] 21 Mar, 2017 Encounter for dental examina tion and cleaning without abnormal findings Z01.20 [place] [address] [facility] [id number] [address] [place] [phone] 05 Jan, 2017 [facility] [address] [facility] [id number] [address] [place] [phone] 30 Dec, 2016 Developmental disorder F89 a nd Anxiety F41.9 [facility] [address] [id number] [address] [place] [address] [phone] Dec, Encounter for dental examina tion and cleaning without abnormal findings Z01.20 [place] [address] [facility] [id number] [address] [place] [phone] 15 Sep, 2016 Encounter for immunization Z 23 [facility] [address] [place] [id number] [address] [place] [phone] 08 Sep, 2016 Prostate cancer screening Z1 2.5 and Hyperlipidemia, unspecified hyperlipidemia E78.5 [place] [address] [place] [id number] [address] [place] [phone] 06 Sep, 2016 Annual physical exam Z00.00 ; Encounter for immunization Z23 ; Essential hypertension I10 ; Hyperlipidemia, unspecified hyperlipidemia E78.5 ; Anxiety F41.9 ; Prostate cancer screening Z12.5 and Nicotine abuse Z72.0 [place] [address] [id number] [address] [place] [phone] Aug, [facility] [address] [id number] [address] [place] [phone] Jul, Urinary incontinence, unspec ified type R32 [facility] [address] [id number] [address] [place] [address] [id number] Jul, Dental examination Z01.20 [facility] [address] [id number] [address] [place] [phone] Jul, Urinary incontinence, unspec ified type R32 [facility] [address] [id number] [address] [place] [phone] Jul, Anxiety F41.9 and Developmen oscar disorder F89 [facility] [address] [id number] [address] [place] [address] [phone] May, Dental examination Z01.[id number] [place] [address] [phone] Apr, Encounter for dental examination Z01.20 [facility] [address] [id number] [place] [address] [id number] Apr, Encounter for dental examina tion and cleaning without abnormal findings Z01.20 [facility] [address] [id number] [address] [place] [phone] Mar, Developmental disorder F89 a nd Anxiety F41.9 [facility] [address] [id number] [address] [place] [address] [phone] February, Dental examination Z01.20 [facility] [address] [id number] [address] [place] [phone] February, Essential hypertension I10 [facility] [address] [id number] [address] [place] [phone] February, Arthralgia M25.50 [facility] [address] [id number] [address] [place] [address] [phone] Jan, Encounter for dental examina tion and cleaning without abnormal findings Z01.20 [facility] [address] [facility] [id number] [address] [place] [phone] Dec, [facility] [address] [place] [id number] [address] [place] [phone] Nov, Anxiety F41.9 and Developmen oscar disorder F89 [facility] [address] [place] [id number] [address] [place] [phone] Nov, [facility] [address] [place] [id number] [address] [place] [phone] Nov, [facility] [address] [place] [id number] [place] [phone] Oct, Hyperlipidemia, unspecified hyperlipidemia E78.5 [place] [address] [place] [id number] [address] [place] [phone] Oct, Essential hypertension I10 ; Hyperlipidemia, unspecified hyperlipidemia E78.5 and Prostate cancer screening Z12.5 [facility] [id number] [place] [phone] Oct, Essential hypertension I10 ; Hyperlipidemia, unspecified hyperlipidemia E78.5 ; Nicotine abuse Z72.0 ; Anxiety F41.9 ; Developmental disorder F89 and Prostate cancer screening Z12.5 [facility] [address] [place] [id number] [address] [place] [phone] Aug, Anxiety F41.9 and Developmen oscar disorder F89 [facility] [address] [place] [id number] [address] [place] [phone] Aug, Essential hypertension I10 a nd Encounter for immunization Z23 [facility] [address] [place] [id number] [address] [place] [phone] Aug, Prostate cancer screening Z1 2.5 [facility] [address] [place] [id number] [address] [place] [phone] Jun, Hypertension 401.9 [facility] [address] [place] [id number] [address] [place] [phone] 18 Jun, 2015 [facility] [address] [id number] [address] [place] [phone] May, Impulse control disorder, un specified 312.30 ; Generalized anxiety disorder 300.02 ; Other specified pervasive developmental disorders, 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 [id number] [address] [place] [phone] Mar, Hypertension 401.9 [facility] [address] [id number] [address] [place] [address] [id number] Mar, Dental examination V72.2 [facility] [address] [facility] [id number] [address] [place] [phone] February, Hypertension 401.9 and Hyper lipidemia 272.4 [facility] [address] [facility] [id number] [address] [place] [phone] February, [facility] [address] 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 [id number] [address] [place] [phone] Jan, [facility] [address] [facility] [id number] [address] [place] [phone] Jan, [facility] [address] [facility] [id number] [address] [place] [phone] Dec, [facility] [address] [facility] [id number] [address] [place] [phone] Dec, [facility] [address] [facility] [id number] [address] [place] [phone] Dec, [facility] [address] [facility] [id number] [address] [place] [phone] 17 Dec, 2014 [facility] [address] [id number] [address] [place] [address], [place] [address] 16 Dec, 2014 [facility] [address] [id number] [address] [place] [address], [place] [address] 16 Dec, 2014 [facility] [address] [id number] [address] [place] [address], [place] [address] 09 Dec, 2014 [facility] [address] [id number] [address] [place] [address], [place] [address] Dec, [facility] [address] [id number] [address] [place] [address], [place] [address] 20 Nov, 2014 [facility] [address] [id number] [address] [place] [address], [place] [address] Nov, 2014 [facility] [address] [id number] [address] [place] [address], [place] [address] 19 Nov, 2014 [facility] [address] [id number] [address] [place] [address], [place] [address] Nov, [facility] [address] [id number] [address] [place] [address], [place] [address] 18 Nov, 2014 [facility] [address] [id number] [address] [place] [address], [place] [address] Nov, [facility] [address] [id number] [address] [place] [address], [place] [address] 17 Nov, 2014 [facility] [address] [id number] [address] [place] [address], [place] [address] Nov, [facility] [address] [id number] [address] [place] [address], [place] [address] Oct, [facility] [address] [id number] [address] [place] [address], [place] [address] Oct, [facility] [address] [id number] [address] [place] [address], [place] [address] Oct, [facility] [address] [id number] [address] [place] [phone] Oct, [facility] [address] [id number] [address] [place] [address], [place] [address] Oct, [facility] [address] [id number] [address] [place] [address], [place] [address] Oct, [facility] [address] [id number] [address] [place] [address], [place] [address] Sep, [facility] [address] [id number] [address] [place] [address], [place] [address] Sep, [facility] [address] [id number] [address] [place] [address], [place] [address] Sep, [facility] [address] [id number] [address] [place] [address], [place] [address] Sep, [facility] [address] [id number] [address] [place] [address], [place] [address] Sep, [facility] [address] [id number] [address] [place] [address], [place] [address] Sep, [facility] [address] [id number] [address] [place] [address], [place] [address] Aug, [facility] [address] [id number] [address] [place] [address], [place] [address] Aug, [facility] [address] [id number] [address] [place] [address], [place] [address] Aug, [facility] [address] [id number] [address] [place] [phone] Aug, [facility] [address] [id number] [address] [place] [address], [place] [address] Jul, [facility] [address] [id number] [address] [place] [address], [place] [address] Jul, [facility] [address] [id number] [address] [place] [address], [place] [address] May, [facility] [address] [id number] [address] [place] [address], [place] [address] May, [facility] [address] [id number] [address] [place] [address], [place] [address] Apr, [facility] [address] [id number] [address] [place] [address], [place] [address] Apr, [facility] [address] [id number] [address] [place] [address], [place] [address] Mar, [facility] [address] [id number] [address] [place] [address], [place] [address] Mar, [facility] [address] [id number] [address] [place] [address], [place] [address] Mar, [facility] [address] [id number] [address] [place] [address], [place] [address] Mar, [facility] [address] [id number] [address] [place] [address], [place] [address] February, [facility] [address] [id number] [address] [place] [address], [place] [address] February, [facility] [address] [id number] [address] [place] [address], [place] [address] Jan, [facility] [address] [id number] [address] [place] [address], [place] [address] Jan, [facility] [address] [id number] [address] [place] [address], [place] [address] Oct, [facility] [address] [id number] [address] [place] [address], [place] [address] Oct, [facility] [address] [id number] [address] [place] [address], [place] [address] Oct, [facility] [address] [id number] [address] [place] [address], [place] [address] Oct, [facility] [address] [id number] [address] [place] [address], [place] [address] Oct, [facility] [address] [id number] [address] [place] [address], [place] [address] Oct, [facility] [address] [id number] [address] [place] [address], [place] [address] Oct, [facility] [address] [id number] [address] [place] [address], [place] [address] Oct, [facility] [address] [id number] [address] [place] [address], [place] [address] Oct, [facility] [address] [id number] [address] [place] [address], [place] [address] Dec, [facility] [address] [id number] [address] [place] [address], [place] [address] Sep, [facility] [address] [id number] [address] [place] [address], [place] [address] Sep, [facility] [address] [id number] [address] [place] [address], [place] [address] May, [facility] [address] [id number] [address] [place] [address], [place] [id number] Apr, [facility] [address] [id number] [address] [place] [address], [place] [address] Apr, [facility] [address] [id number] [address] [place] [address], [place] [address] Apr, [facility] [address] [id number] [place] [id number] February, [facility] [address] [id number] [address] [place] [address], [place] [address] Jan, [facility] [address] [id number] [address] [place] [address], [place] [address] Dec, [facility] [address] [id number] [address] [place] [address], [place] [address] Sep, [facility] [address] [id number] [address] [place] [address], [place] [address] Sep, [facility] [address] [id number] [address] [place] [phone] Aug, [facility] [address] [id number] [address] [place] [phone] Aug, [facility] [address] [id number] [address] [place] [id number] Jul, [facility] [address] [facility] [id number] [address] [place] [phone] Mar, [facility] [address] [facility] [id number] [address] [place] [phone] Mar, [facility] [address] [facility] [id number] [address] [place] [phone] Mar, IMMUNIZATIONS No Known Immunizations SOCIAL HISTORY Never Assessed REASON FOR VISIT PLAN OF CARE VITAL SIGNS Height 68 in 2014-11-08 Weight 160.25 lbs 2014-11-08 Temperature 97.4 degrees Fahrenheit 2014-11-08 Heart Rate 100 bpm 2014-11-08 Respiratory Rate 28 2014-11-08 Blood pressure systolic 156 mmHg 2014-11-08 Blood pressure diastolic 104 mmHg 2014-11-08 MEDICATIONS Unknown Medications RESULTS No Results PROCEDURES No Known procedures INSTRUCTIONS MEDICATIONS ADMINISTERED No Known Medications MEDICAL (GENERAL) HISTORY Type Description Date Medical History hyperlipidemia Medical History hypertension Medical History mood disorder Medical History mild mental retardation Medical History insomnia Medical History anxiety Medical History Asperger's Surgical History laser eye surgery
--- OUTSIDE RECORDS SUMMARY | 2020-01-04 10:17 | XMS REPORT ---
Author Author Anton CLAROS [facility] Address [address] [place] [address] Care Team Providers Care Senior Bookkeeper Name Role Phone CLAROSJULI Linda Unavailable PROBLEMS Type Condition ICD9-CM Code QSV74-MR Code Onset Dates Condition S tatus SNOMED Code Problem Essential hypertension I10 Active 98906345 Problem Urinary incontinence, unspecified type R32 Active 657410255 Problem Hyperglycemia R73.9 Active 628790 07 Problem Anxiety F41.9 Active 79792356 Problem Hyperlipidemia, unspecified hyperlipidemia E78.5 Active 85179395 Problem Nicotine abuse Z72.0 Active 60236 008 Problem Developmental disorder F89 Active [id number] ALLERGIES No Information ENCOUNTERS Encounter Location Date Diagnosis [facility] [address] [facility] [id number] [address] [place] [address] May, [facility] [address] [facility] [id number] [address] [place] [address] Apr, [facility] [address] [facility] [id number] [address] [place] [address] February, [facility] [address] [facility] [id number] [address] [place] [address] February, Anxiety F41.9 ; Developmenta l disorder F89 and Nicotine abuse Z72.0 [facility] [address] [facility] [id number] [address] [place] [address] February, Essential hypertension I10 a nd Impacted cerumen, bilateral H61.23 [facility] [address] [id number] [address] [place] [address] [id number] Dec, Oral health maintenance stat us requiring routine preventive dental care K08.9 [facility] [address] [facility] [id number] [address] [place] [address] Dec, Developmental disorder F89 a nd Anxiety F41.9 [facility] [address] [id number] [address] [place] [address] Nov, [facility] [address] [facility] [id number] [address] [place] [address] Nov, Essential hypertension I10 [facility] [address] [id number] [address] [place] [address] Nov, Essential hypertension I10 [facility] [address] [id number] [address] [place] [address] Nov, Developmental disorder F89 a nd Anxiety F41.9 [facility] [address] [id number] [address] [place] [address] Nov, [facility] [address] [facility] [id number] [address] [place] [address] Nov, Essential hypertension I10 [facility] [address] [facility] [id number] [address] [place] [address] Oct, Elevated blood sugar R73.09 [facility] [address] [facility] [id number] [address] [place] [address] Oct, Elevated blood sugar R73.09 [facility] [address] [facility] [id number] [address] [place] [address] Oct, Encounter for Medicare annua l wellness exam Z00.00 ; Screening PSA (prostate specific antigen) Z12.5 ; Essential hypertension I10 ; Hyperlipidemia, unspecified hyperlipidemia E78.5 ; Nicotine abuse Z72.0 ; Anxiety F41.9 ; Bilateral impacted cerumen H61.23 and Developmental disorder F89 [facility] [address] [facility] [id number] [address] [place] [address] Oct, Encounter for Medicare annua l wellness exam Z00.00 ; Essential hypertension I10 ; Hyperlipidemia, unspecified hyperlipidemia E78.5 ; Nicotine abuse Z72.0 ; Anxiety F41.9 ; Developmental disorder F89 and Screening PSA (prostate specific antigen) Z12.5 [facility] [address] [id number] [address] [place] [address] [id number] Sep, Dental examination Z01.20 [facility] [address] [id number] [address] [place] [phone] 16 Jul, 2018 Developmental disorder F89 a nd Anxiety F41.9 [facility] [address] [id number] [address] [place] [address] Jun, Essential hypertension I10 ; Nicotine abuse Z72.0 and Encounter for immunization Z23 [facility] [address] [id number] [address] [place] [address] [id number] Apr, Dental examination Z01.20 [facility] [address] [id number] [address] [place] [address] [id number] Jan, Dental examination Z01.20 [facility] [address] [facility] [id number] [address] [place] [address] Dec, Developmental disorder F89 a nd Anxiety F41.9 [facility] [address] [facility] [id number] [address] [place] [address] 14 Nov, 2017 Essential hypertension I10 ; Hyperlipidemia, unspecified hyperlipidemia E78.5 ; Nicotine abuse Z72.0 and Bilateral impacted cerumen H61.23 [facility] [address] [facility] [id number] [address] [place] [address] Oct, [facility] [address] [id number] [address] [place] [address] [id number] Sep, Encounter for dental exam an d cleaning w/o abnormal findings Z01.20 [facility] [address] [facility] [id number] [address] [place] [address] 11 Sep, 2017 Medicare annual wellness vis it, initial Z00.00 and Encounter for immunization Z23 [facility] [address] [id number] [address] [place] [phone] 28 Aug, 2017 Encounter for immunization Z 23 ; Developmental disorder F89 and Anxiety F41.9 [facility] [address] [id number] [address] [place] [address] [id number] 13 Jun, 2017 Encounter for dental examina tion and cleaning without abnormal findings Z01.20 [facility] [address] [place] [id number] [address] [place] [address] 27 Apr, 2017 Anxiety F41.9 and Developmen oscar disorder F89 [facility] [address] [place], [place] [id number] [address] [place] [address] 17 Apr, 2017 Essential hypertension I10 a nd Nicotine abuse Z72.[id number] [place] [address] [id number] Mar, Dental examination Z01.20 [facility] [id number] [place] [address] [id number] Mar, Encounter for dental examina tion and cleaning without abnormal findings Z01.20 [place] [address] [address] Jan, [facility] [address] [address] Dec, Developmental disorder F89 a nd Anxiety F41.9 [facility] [id number] [place] [address] [phone] Dec, Encounter for dental examina tion and cleaning without abnormal findings Z01.20 [place] [id number] [address] [place] [address] Sep, Encounter for immunization Z 23 [place] [address] [address] 08 Sep, 2016 Prostate cancer screening Z1 2.5 and Hyperlipidemia, unspecified hyperlipidemia E78.[address] [address] 06 Sep, 2016 Annual physical exam Z00.00 ; Encounter for immunization Z23 ; Essential hypertension I10 ; Hyperlipidemia, unspecified hyperlipidemia E78.5 ; Anxiety F41.9 ; Prostate cancer screening Z12.5 and Nicotine abuse Z72.0 [place] [address] [id number] [address] [place] [address] Aug, [facility] [address] [id number] [address] [place] [phone] Jul, Urinary incontinence, unspec ified type R32 [facility] [address] [id number] [address] [place] [address] [id number] Jul, Dental examination Z01.20 [facility] [address] [id number] [address] [place] [address] Jul, Urinary incontinence, unspec ified type R32 [facility] [address] [id number] [address] [place] [address] Jul, Anxiety F41.9 and Developmen oscar disorder F89 [facility] [address] [id number] [address] [place] [address] [id number] May, Dental examination Z01.[id number] [place] [address] [id number] Apr, Encounter for dental examination Z01.20 [facility] [id number] [place] [address] [id number] Apr, Encounter for dental examina tion and cleaning without abnormal findings Z01.20 [facility] [address] [id number] [address] [place] [address] Mar, Developmental disorder F89 a nd Anxiety F41.9 [facility] [address] [id number] [address] [place] [address] [id number] February, Dental examination Z01.20 [facility] [address] [id number] [address] [place] [phone] February, Essential hypertension I10 [facility] [address] [id number] [address] [place] [address] February, Arthralgia M25.50 [facility] [address] [id number] [address] [place] [address] [id number] Jan, Encounter for dental examina tion and cleaning without abnormal findings Z01.20 [facility] [address] [facility] [id number] [address] [place] [address] Dec, [facility] [address] [facility] [id number] [address] [place] [address] Nov, Anxiety F41.9 and Developmen oscar disorder F89 [facility] [address] [facility] [id number] [address] [place] [phone] Nov, [facility] [address] [facility] [id number] [address] [place] [address] Nov, [facility] [address] [facility] [id number] [address] [place] [address] Oct, Hyperlipidemia, unspecified hyperlipidemia E78.5 [place] [address] [facility] [id number] [address] [place] [address] Oct, Essential hypertension I10 ; Hyperlipidemia, unspecified hyperlipidemia E78.5 and Prostate cancer screening Z12.5 [facility] [address] [facility] [id number] [address] [place] [address] Oct, Essential hypertension I10 ; Hyperlipidemia, unspecified hyperlipidemia E78.5 ; Nicotine abuse Z72.0 ; Anxiety F41.9 ; Developmental disorder F89 and Prostate cancer screening Z12.5 [facility] [address] [facility] [id number] [address] [place] [address] Aug, Anxiety F41.9 and Developmen oscar disorder F89 [facility] [address] [facility] [id number] [address] [place] [address] Aug, Essential hypertension I10 a nd Encounter for immunization Z23 [facility] [address] [facility] [id number] [address] [place] [address] 04 Aug, 2015 Prostate cancer screening Z1 2.5 [facility] [address] [facility] [id number] [address] [place] [phone] 29 Jun, 2015 Hypertension 401.9 [facility] [address] [facility] [id number] [address] [place] [phone] 18 Jun, 2015 [facility] [address] [facility] [id number] [address] [place] [address] May, Impulse control disorder, un specified 312.30 ; Generalized anxiety disorder 300.02 ; Other specified pervasive developmental disorders, 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 and 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 [facility] [address] [facility] [id number] [address] [place] [address] Mar, Hypertension 401.9 [facility] [address] [id number] [address] [place] [address] [id number] Mar, Dental examination V72.2 [facility] [address] [facility] [id number] [address] [place] [address] February, Hypertension 401.9 and Hyper lipidemia 272.4 [facility] [address] [facility] [id number] [address] [place] [address] February, [facility] [address] [facility] [id number] [address] [place] [address] February, Generalized anxiety disorder 300.02 ; Impulse control disorder 312.30 ; 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 and Benign essential HTN 401.1 [facility] [address] [facility] [id number] [address] [place] [phone] Jan, [facility] [address] [facility] [id number] [address] [place] [address] Jan, [facility] [address] [facility] [id number] [address] [place] [address] Dec, [facility] [address] [facility] [id number] [address] [place] [address] Dec, [facility] [address] [facility] [id number] [address] [place] [address] Dec, [facility] [address] [facility] [id number] [address] [place] [phone] Dec, [facility] [address] [facility] [id number] [address] [place] [phone] 16 Dec, 2014 [facility] [address] [id number] [address] [place] [address], [place] [address] Dec, [facility] [address] [id number] [address] [place] [address], [place] [address] Dec, [facility] [address] [id number] [address] [place] [address], [place] [address] Dec, [facility] [address] [id number] [address] [place] [address], [place] [address] Nov, [facility] [address] [id number] [address] [place] [address], [place] [address] Nov, [facility] [address] [id number] [address] [place] [address], [place] [address] Nov, [facility] [address] [id number] [address] [place] [address], [place] [address] Nov, [facility] [address] [id number] [address] [place] [address], [place] [address] Nov, [facility] [address] [id number] [address] [place] [address], [place] [address] Nov, [facility] [address] [id number] [address] [place] [phone] Nov, [facility] [address] [id number] [address] [place] [address], [place] [address] Nov, [facility] [address] [id number] [address] [place] [address] Oct, [facility] [address] [id number] [address] [place] [address], [place] [address] Oct, [facility] [address] [id number] [address] [place] [phone] Oct, [facility] [address] [id number] [address] [place] [address] Oct, [facility] [address] [id number] [address] [place] [address], [place] [address] Oct, [facility] [address] [id number] [address] [place] [address], [place] [address] Oct, [facility] [address] [id number] [address] [place] [address], [place] [address] Sep, [facility] [address] [id number] [address] [place] [address], [place] [address] Sep, [facility] [address] [id number] [address] [place] [address], [place] [address] Sep, [facility] [address] [id number] [address] [place] [address], [place] [address] Sep, [facility] [address] [id number] [address] [place] [address], [place] [address] Sep, [facility] [address] [id number] [address] [place] [address], [place] [address] Sep, [facility] [address] [id number] [address] [place] [address], [place] [address] Aug, [facility] [address] [id number] [address] [place] [address], [place] [address] Aug, [facility] [address] [id number] [address] [place] [address] Aug, [facility] [address] [id number] [address] [place] [address] Aug, [facility] [address] [id number] [address] [place] [address], [place] [address] Jul, [facility] [address] [id number] [address] [place] [address], [place] [address] Jul, [facility] [address] [id number] [address] [place] [address], [place] [address] May, [facility] [address] [id number] [address] [place] [address] May, [facility] [address] [id number] [address] [place] [address], [place] [address] Apr, [facility] [address] [id number] [address] [place] [address], [place] [address] Apr, [facility] [address] [id number] [address] [place] [address], [place] [address] Mar, [facility] [address] [id number] [address] [place] [address], [place] [address] Mar, [facility] [address] [id number] [address] [place] [address], [place] [address] Mar, [facility] [address] [id number] [address] [place] [address], [place] [address] Mar, [facility] [address] [id number] [address] [place] [address], [place] [address] February, [facility] [address] [id number] [address] [place] [address], [place] [address] February, [facility] [address] [id number] [address] [place] [address], [place] [address] Jan, [facility] [address] [id number] [address] [place] [address], [place] [address] Jan, [facility] [address] [id number] [address] [place] [address], [place] [address] Oct, [facility] [address] [id number] [address] [place] [address], [place] [address] Oct, [facility] [address] [id number] [address] [place] [address], [place] [address] Oct, [facility] [address] [id number] [address] [place] [address], [place] [address] Oct, [facility] [address] [id number] [address] [place] [address], [place] [address] Oct, [facility] [address] [id number] [address] [place] [address], [place] [address] 30 Oct, 2013 [facility] [address] [id number] [address] [place] [address], [place] [address] Oct, [facility] [address] [id number] [address] [place] [address], [place] [address] Oct, [facility] [address] [id number] [address] [place] [address], [place] [address] Oct, [facility] [address] [id number] [address] [place] [address], [place] [address] Dec, [facility] [address] [id number] [address] [place] [address], [place] [address] Sep, [facility] [address] [id number] [address] [place] [address], [place] [address] Sep, [facility] [address] [id number] [address] [place] [address], [place] [address] May, [facility] [address] [id number] [address] [place] [address], [place] [address] Apr, [facility] [address] [id number] [address] [place] [address], [place] [address] Apr, [facility] [address] [id number] [address] [place] [address], [place] [address] Apr, [facility] [address] [id number] [id number] February, [facility] [address] [id number] [address] [place] [address], [place] [address] Jan, [facility] [address] [id number] [address] [place] [address], [place] [address] Dec, [facility] [address] [id number] [address] [place] [address], [place] [address] Sep, [facility] [address] [id number] [address] [place] [address], [place] [address] Sep, [facility] [address] [facility] [id number] [address] [place] [address] Aug, [facility] [address] [facility] [id number] [address] [place] [address] Aug, [facility] [address] [facility] [id number] [address] [place] [address] Jul, [facility] [address] [facility] [id number] [address] [place] [address] Mar, [facility] [address] [facility] [id number] [address] [place] [address] Mar, [facility] [address] [facility] [id number] [address] [place] [address] Mar, IMMUNIZATIONS No Known Immunizations SOCIAL HISTORY [...]
--- OUTSIDE RECORDS SUMMARY | 2020-01-04 10:18 | XMS REPORT ---
Author Author Anton Coleman Doctor Organization [facility] Address Unknown Phone Unavailable Care Team Providers Care Tax Record Clerk Name Role Phone Migration, Doctor Unavailable Unavailable PROBLEMS Type Condition ICD9-CM Code TPT91-DX Code Onset Dates Condition S tatus SNOMED Code Problem Essential hypertension I10 Active 34357967 Problem Urinary incontinence, unspecified type R32 Active 900184935 Problem Hyperglycemia R73.9 Active 539554 07 Problem Anxiety F41.9 Active 95719576 Problem Hyperlipidemia, unspecified hyperlipidemia E78.5 Active 47004637 Problem Nicotine abuse Z72.0 Active 99748 008 Problem Developmental disorder F89 Active [id number] ALLERGIES No Information ENCOUNTERS Encounter Location Date Diagnosis [facility] [address] [id number] [address] [place] [address] May, [facility] [address] [id number] [address] [place] [address] February, Anxiety F41.9 ; Developmenta l disorder F89 and Nicotine abuse Z72.0 [facility] [address] [id number] [address] [place] [address] February, Essential hypertension I10 a nd Impacted cerumen, bilateral H61.23 [facility] [address] [id number] [address] [place] [address] [id number] Dec, Oral health maintenance stat us requiring routine preventive dental care K08.9 [facility] [address] [facility] [id number] [address] [place] [address] Dec, Developmental disorder F89 a nd Anxiety F41.9 [facility] [address] [facility] [id number] [address] [place] [address] Nov, [facility] [address] [id number] [address] [place] [address] Nov, Essential hypertension I10 [facility] [address] [facility] [id number] [address] [place] [address] 24 Nov, 2018 Essential hypertension I10 [place] [address] [facility] [id number] [address] [place] [address] 19 Nov, 2018 Developmental disorder F89 a nd Anxiety F41.9 [facility] [address] [facility] [id number] [address] [place] [address] 14 Nov, 2018 [place] [address] [facility] [id number] [address] [place] [address] Nov, Essential hypertension I10 [place] [address] [facility] [id number] [address] [place] [address] Oct, Elevated blood sugar R73.09 [place] [address] [facility] [id number] [address] [place] [address] Oct, Elevated blood sugar R73.09 [place] [address] [place] [address] 15 Oct, 2018 Encounter for Medicare annua l wellness exam Z00.00 ; Screening PSA (prostate specific antigen) Z12.5 ; Essential hypertension I10 ; Hyperlipidemia, unspecified hyperlipidemia E78.5 ; Nicotine abuse Z72.0 ; Anxiety F41.9 ; Bilateral impacted cerumen H61.23 and Developmental disorder F89 [place] [address] [place] [address] Oct, Encounter for Medicare annua l wellness exam Z00.00 ; Essential hypertension I10 ; Hyperlipidemia, unspecified hyperlipidemia E78.5 ; Nicotine abuse Z72.0 ; Anxiety F41.9 ; Developmental disorder F89 and Screening PSA (prostate specific antigen) Z12.5 [facility] [id number] [place] [address] [phone] Sep, Dental examination Z01.20 [facility] [address] [facility] [id number] [address] [place] [id number] 16 Jul, 2018 Developmental disorder F89 a nd Anxiety F41.9 [place] [address] [id number] [address] [place] [address] Jun, Essential hypertension I10 ; Nicotine abuse Z72.0 and Encounter for immunization Z23 [facility] [address] [id number] [address] [place] [address] [phone] Apr, Dental examination Z01.20 [facility] [address] [facility] [id number] [address] [place] [address] [phone] Jan, Dental examination Z01.20 [facility] [address] [facility] [id number] [address] [place] [address] Dec, Developmental disorder F89 a nd Anxiety F41.9 [place] [address] [address] 14 Nov, 2017 Essential hypertension I10 ; Hyperlipidemia, unspecified hyperlipidemia E78.5 ; Nicotine abuse Z72.0 and Bilateral impacted cerumen H61.23 [place] [address] [id number] [address] [place] [address] Oct, [facility] [id number] [place] [address] [phone] Sep, Encounter for dental exam an d cleaning w/o abnormal findings Z01.20 [place] [address] [id number] [address] [place] [address] Sep, Medicare annual wellness vis it, initial Z00.00 and Encounter for immunization Z23 [facility] [address] [id number] [address] [place] [address] Aug, Encounter for immunization Z 23 ; Developmental disorder F89 and Anxiety F41.9 [facility] [id number] [place] [address] [id number] 13 Jun, 2017 Encounter for dental examina tion and cleaning without abnormal findings Z01.20 [facility] [address] [facility] [id number] [address] [place] [address] Apr, Anxiety F41.9 and Developmen oscar disorder F89 [place] [address] [place] [id number] [place] [address] Apr, Essential hypertension I10 a nd Nicotine abuse Z72.0 [facility] [id number] [place] [address] [id number] Mar, Dental examination Z01.20 [facility] [address] [id number] [address] [place] [address] [phone] Mar, Encounter for dental examina tion and cleaning without abnormal findings Z01.20 [facility] [address] [facility] [id number] [address] [place] [address] Jan, [place] [address] [facility] [id number] [place] [phone] Dec, Developmental disorder F89 a nd Anxiety F41.9 [facility] [address] [place] [address] [phone] Dec, Encounter for dental examina tion and cleaning without abnormal findings Z01.20 [facility] [address] [place] [address] Sep, Encounter for immunization Z 23 [place] [address] [id number] [address] [place] [address] Sep, Prostate cancer screening Z1 2.5 and Hyperlipidemia, unspecified hyperlipidemia E78.5 [place] [id number] [address] [place] [address] Sep, Annual physical exam Z00.00 ; Encounter for immunization Z23 ; Essential hypertension I10 ; Hyperlipidemia, unspecified hyperlipidemia E78.5 ; Anxiety F41.9 ; Prostate cancer screening Z12.5 and Nicotine abuse Z72.0 [facility] [address] [facility] [id number] [address] [place] [address] Aug, [facility] [address] [facility] [id number] [address] [place] [address] Jul, Urinary incontinence, unspec ified type R32 [facility] [address] [place] [address] [phone] Jul, Dental examination Z01.20 [facility] [address] [id number] [address] [place] [address] Jul, Urinary incontinence, unspec ified type R32 [facility] [address] [facility] [id number] [address] [place] [address] Jul, Anxiety F41.9 and Developmen oscar disorder F89 [facility] [address] [id number] [place] [address] [phone] May, Dental examination Z01.[id number] [place] [address] [id number] Apr, Encounter for dental examination Z01.20 [facility] [address] [id number] [place] [address] [phone] Apr, Encounter for dental examina tion and cleaning without abnormal findings Z01.20 [facility] [address] [facility] [id number] [address] [place] [address] Mar, Developmental disorder F89 a nd Anxiety F41.9 [facility] [address] [id number] [id number] February, Dental examination Z01.20 [facility] [address] [facility] [id number] [address] [place] [address] February, Essential hypertension I10 [facility] [address] [facility] [id number] [address] [place] [address] February, Arthralgia M25.50 [facility] [address] [id number] [address] [place] [address] [phone] Jan, Encounter for dental examina tion and cleaning without abnormal findings Z01.20 [facility] [address] [facility] [id number] [address] [place] [address] Dec, [facility] [address] [facility] [id number] [address] [place] [address] Nov, Anxiety F41.9 and Developmen oscar disorder F89 [facility] [address] [id number] [address] [place] [phone] 17 Nov, 2015 [facility] [address] [id number] [address] [place] [address] Nov, [facility] [address] [address] Oct, Hyperlipidemia, unspecified hyperlipidemia E78.5 [facility] [address] [id number] [address] [place] [address] Oct, Essential hypertension I10 ; Hyperlipidemia, unspecified hyperlipidemia E78.5 and Prostate cancer screening Z12.5 [place] [address] [address] Oct, Essential hypertension I10 ; Hyperlipidemia, unspecified hyperlipidemia E78.5 ; Nicotine abuse Z72.0 ; Anxiety F41.9 ; Developmental disorder F89 and Prostate cancer screening Z12.5 [facility] [address] [address] Aug, Anxiety F41.9 and Developmen oscar disorder F89 [facility] [address] [phone] Aug, Essential hypertension I10 a nd Encounter for immunization Z23 [place] [address] [address] Aug, Prostate cancer screening Z1 2.5 [facility] [address] [id number] [address] [place] [address] Jun, Hypertension 401.9 [facility] [address] [id number] [address] [place] [address] Jun, [place] [address] [address] May, Impulse control disorder, un specified 312.30 ; Generalized anxiety disorder 300.02 ; Other specified pervasive developmental disorders, 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 and 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 [facility] [address] [id number] [address] [place] [address] 17 Mar, 2015 Hypertension 401.9 [facility] [address] [id number] [address] [place] [address] [id number] 15 Mar, 2015 Dental examination V72.2 [facility] [address] [id number] [address] [place] [address] February, Hypertension 401.9 and Hyper lipidemia 272.4 [facility] [address] [id number] [address] [place] [address] February, [facility] [address] [id number] [address] [place] [address] February, Generalized anxiety disorder 300.02 ; Impulse control disorder 312.30 ; 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 and Benign essential HTN 401.1 [facility] [address] [id number] [address] [place] [address] 14 Jan, 2015 [facility] [address] [id number] [address] [place] [address] Jan, [facility] [address] [id number] [address] [place] [address] 18 Dec, 2014 [facility] [address] [id number] [address] [place] [address] 18 Dec, 2014 [facility] [address] [id number] [address] [place] [phone] 17 Dec, 2014 [facility] [address] [id number] [address] [place] [address] 17 Dec, 2014 [facility] [address] [id number] [address] [place] [id number] 16 Dec, 2014 [facility] [address] [id number] [address] [place] [address] 16 Dec, 2014 [facility] [address] [id number] [address] [place] [phone] 09 Dec, 2014 [facility] [address] [id number] [address] [place] [address], [place] [address] Dec, [facility] [address] [id number] [address] [place] [address], [place] [address] Nov, [facility] [address] [id number] [address] [place] [address], [place] [address] Nov, 2014 [facility] [address] [id number] [address] [place] [address], [place] [address] Nov, 2014 [facility] [address] [id number] [address] [place] [address], [place] [address] Nov, 2014 [facility] [address] [id number] [address] [place] [address], [place] [address] Nov, [facility] [address] [id number] [address] [place] [address], [place] [address] Nov, [facility] [address] [id number] [address] [place] [address], [place] [address] Nov, [facility] [address] [id number] [address] [place] [address], [place] [address] Nov, [facility] [address] [id number] [address] [place] [address] Oct, [facility] [address] [id number] [address] [place] [address] Oct, [facility] [address] [id number] [address] [place] [address] Oct, [facility] [address] [id number] [address] [place] [address] Oct, [facility] [address] [id number] [address] [place] [address] Oct, [facility] [address] [id number] [address] [place] [address] Oct, [facility] [address] [id number] [address] [place] [address] Sep, [facility] [address] [id number] [address] [place] [address], [place] [address] Sep, [facility] [address] [id number] [address] [place] [address], [place] [address] Sep, [facility] [address] [id number] [address] [place] [address], [place] [address] Sep, [facility] [address] [id number] [address] [place] [address], [place] [address] Sep, [facility] [address] [id number] [address] [place] [address], [place] [address] Sep, [facility] [address] [id number] [address] [place] [address], [place] [address] Aug, [facility] [address] [id number] [address] [place] [address], [place] [address] Aug, [facility] [address] [id number] [address] [place] [address], [place] [address] Aug, [facility] [address] [id number] [address] [place] [address], [place] [address] Aug, [facility] [address] [id number] [address] [place] [address], [place] [address] Jul, [facility] [address] [id number] [address] [place] [address], [place] [address] Jul, [facility] [address] [id number] [address] [place] [address], [place] [address] May, [facility] [address] [id number] [address] [place] [address], [place] [address] May, [facility] [address] [id number] [address] [place] [address], [place] [address] Apr, [facility] [address] [id number] [address] [place] [address], [place] [address] Apr, [facility] [address] [id number] [address] [place] [address], [place] [address] Mar, [facility] [address] [id number] [address] [place] [address], [place] [address] Mar, [facility] [address] [id number] [address] [place] [address], [place] [address] Mar, [facility] [address] [id number] [address] [place] [address], [place] [address] Mar, [facility] [address] [id number] [address] [place] [address], [place] [address] February, [facility] [address] [id number] [address] [place] [address], [place] [address] February, [facility] [address] [id number] [address] [place] [address], [place] [address] Jan, [facility] [address] [id number] [address] [place] [address], [place] [address] Jan, [facility] [address] [id number] [address] [place] [address], [place] [address] Oct, [facility] [address] [id number] [address] [place] [address], [place] [address] Oct, [facility] [address] [id number] [address] [place] [address], [place] [address] Oct, [facility] [address] [id number] [address] [place] [address], [place] [address] Oct, [facility] [address] [id number] [address] [place] [address], [place] [address] Oct, [facility] [address] [id number] [address] [place] [address], [place] [address] Oct, [facility] [address] [id number] [address] [place] [address], [place] [address] Oct, [facility] [address] [id number] [address] [place] [address], [place] [address] Oct, [facility] [address] [id number] [address] [place] [address], [place] [address] Oct, [facility] [address] [id number] [address] [place] [address], [place] [address] Dec, [facility] [address] [id number] [address] [place] [address], [place] [address] Sep, [facility] [address] [id number] [address] [place] [address], [place] [address] Sep, [facility] [address] [id number] [address] [place] [address], [place] [address] May, [facility] [address] [id number] [address] [place] [address], [place] [address] Apr, [facility] [address] [id number] [address] [place] [address], [place] [address] Apr, [facility] [address] [id number] [address] [place] [address], [place] [address] Apr, [facility] [address] [id number] [place] [id number] February, [facility] [address] [id number] [address] [place] [address], [place] [address] Jan, [facility] [address] [id number] [address] [place] [address], [place] [address] Dec, [facility] [address] [id number] [address] [place] [address], [place] [address] Sep, [facility] [address] [id number] [address] [place] [address], [place] [address] Sep, [facility] [address] [id number] [address] [place] [address], [place] [address] Aug, [facility] [address] [id number] [address] [place] [address], [place] [address] Aug, [facility] [address] [id number] [address] [place] [address] Jul, [facility] [address] [facility] [id number] [address] [place] [address] 17 Mar, 2011 [facility] [address] [facility] [id number] [address] [place] [address] 15 Mar, 2011 [facility] [address] [facility] [id number] [address] [place] [address] Mar, IMMUNIZATIONS No Known Immunizations SOCIAL HISTORY Never Assessed REASON FOR VISIT [facility] PLAN OF CARE VITAL SIGNS MEDICATIONS Unknown Medications RESULTS No Results PROCEDURES No Known procedures INSTRUCTIONS MEDICATIONS ADMINISTERED No Known Medications MEDICAL (GENERAL) HISTORY Type Description Date Medical History hyperlipidemia Medical History hypertension Medical History mood disorder Medical History mild mental retardation Medical History insomnia Medical History anxiety Medical History Asperger's Surgical History laser eye surgery
--- OUTSIDE RECORDS SUMMARY | 2020-01-04 10:18 | XMS REPORT ---
Author Author Anton FAY Organization [facility] Address [address] [place] [address] Care Team Providers Care Adon Name Role Phone TWAN FAY Unavailable PROBLEMS Type Condition ICD9-CM Code JBU15-IE Code Onset Dates Condition S tatus SNOMED Code Problem Essential hypertension I10 Active 33484871 Problem Urinary incontinence, unspecified type R32 Active 110489220 Problem Hyperglycemia R73.9 Active 069087 07 Problem Anxiety F41.9 Active 47173631 Problem Hyperlipidemia, unspecified hyperlipidemia E78.5 Active 60443670 Problem Nicotine abuse Z72.0 Active 46844 008 Problem Developmental disorder F89 Active [id number] ALLERGIES No Information ENCOUNTERS Encounter Location Date Diagnosis [facility] [address] [facility] [id number] [address] [place] [phone] May, OUTREACH [facility] [id number] [place] [phone] Apr, [facility] [address] [facility] [id number] [address] [place] [phone] February, [facility] [address] [facility] [id number] [address] [place] [phone] February, Anxiety F41.9 ; Developmenta l disorder F89 and Nicotine abuse Z72.0 [facility] [address] [facility] [id number] [address] [place] [phone] February, Essential hypertension I10 a nd Impacted cerumen, bilateral H61.23 [facility] [address] [id number] [address] [place] [address] [phone] Dec, Oral health maintenance stat us requiring routine preventive dental care K08.9 [facility] [address] [facility] [id number] [address] [place] [phone] Dec, Developmental disorder F89 a nd Anxiety F41.9 [facility] [address] [id number] [address] [place] [phone] Nov, [facility] [address] [facility] [id number] [address] [place] [phone] Nov, Essential hypertension I10 [facility] [address] [facility] [id number] [address] [place] [phone] Nov, Essential hypertension I10 [facility] [address] [id number] [address] [place] [phone] Nov, Developmental disorder F89 a nd Anxiety F41.9 [facility] [address] [facility] [id number] [address] [place] [phone] Nov, [facility] [address] [facility] [id number] [address] [place] [phone] Nov, Essential hypertension I10 [facility] [address] [facility] [id number] [address] [place] [phone] Oct, Elevated blood sugar R73.09 [facility] [address] [facility] [id number] [address] [place] [phone] Oct, Elevated blood sugar R73.09 [facility] [address] [facility] [id number] [address] [place] [phone] Oct, Encounter for Medicare annua l wellness exam Z00.00 ; Screening PSA (prostate specific antigen) Z12.5 ; Essential hypertension I10 ; Hyperlipidemia, unspecified hyperlipidemia E78.5 ; Nicotine abuse Z72.0 ; Anxiety F41.9 ; Bilateral impacted cerumen H61.23 and Developmental disorder F89 [facility] [address] [facility] [id number] [address] [place] [phone] Oct, Encounter for Medicare annua l wellness exam Z00.00 ; Essential hypertension I10 ; Hyperlipidemia, unspecified hyperlipidemia E78.5 ; Nicotine abuse Z72.0 ; Anxiety F41.9 ; Developmental disorder F89 and Screening PSA (prostate specific antigen) Z12.5 [facility] [address] [facility] [id number] [address] [place] [id number] Sep, Dental examination Z01.20 [facility] [address] [facility] [id number] [address] [place] [phone] 16 Jul, 2018 Developmental disorder F89 a nd Anxiety F41.9 [facility] [address] [facility] [id number] [address] [place] [phone] Jun, Essential hypertension I10 ; Nicotine abuse Z72.0 and Encounter for immunization Z23 [facility] [address] [facility] [id number] [place] [phone] Apr, Dental examination Z01.20 [facility] [address] [facility] [id number] [place] [address] [id number] Jan, Dental examination Z01.20 [facility] [address] [facility] [id number] [address] [place] [phone] Dec, Developmental disorder F89 a nd Anxiety F41.9 [facility] [address] [facility] [id number] [place] [phone] 14 Nov, 2017 Essential hypertension I10 ; Hyperlipidemia, unspecified hyperlipidemia E78.5 ; Nicotine abuse Z72.0 and Bilateral impacted cerumen H61.23 [facility] [address] [facility] [id number] [address] [place] [phone] Oct, [facility] [address] [facility] [id number] [place] [address] [id number] Sep, Encounter for dental exam an d cleaning w/o abnormal findings Z01.20 [facility] [address] [facility] [id number] [address] [place] [phone] Sep, Medicare annual wellness vis it, initial Z00.00 and Encounter for immunization Z23 [facility] [address] [facility] [id number] [address] [place] [phone] Aug, Encounter for immunization Z 23 ; Developmental disorder F89 and Anxiety F41.9 [facility] [address] [facility] [id number] [address] [place] [address] [id number] 13 Jun, 2017 Encounter for dental examina tion and cleaning without abnormal findings Z01.20 [facility] [address] [id number] [address] [place] [phone] 27 Apr, 2017 Anxiety F41.9 and Developmen oscar disorder F89 [facility] [address] [facility] [id number] [address] [place] [phone] 17 Apr, 2017 Essential hypertension I10 a nd Nicotine abuse Z72.[id number] [place] [address] [id number] Mar, Dental examination Z01.20 [facility] [address] [id number] [address] [place] [address] [id number] Mar, Encounter for dental examina tion and cleaning without abnormal findings Z01.20 [facility] [address] [facility] [id number] [address] [place] [phone] Jan, [facility] [address] [facility] [id number] [address] [place] [phone] Dec, Developmental disorder F89 a nd Anxiety F41.9 [facility] [address] [id number] [address] [place] [address] [id number] Dec, Encounter for dental examina tion and cleaning without abnormal findings Z01.20 [facility] [address] [facility] [id number] [address] [place] [phone] Sep, Encounter for immunization Z 23 [facility] [address] [facility] [id number] [address] [place] [phone] 08 Sep, 2016 Prostate cancer screening Z1 2.5 and Hyperlipidemia, unspecified hyperlipidemia E78.5 [place] [address] [facility] [id number] [address] [place] [phone] 06 Sep, 2016 Annual physical exam Z00.00 ; Encounter for immunization Z23 ; Essential hypertension I10 ; Hyperlipidemia, unspecified hyperlipidemia E78.5 ; Anxiety F41.9 ; Prostate cancer screening Z12.5 and Nicotine abuse Z72.0 [facility] [address] [id number] [address] [place] [phone] Aug, [facility] [address] [id number] [address] [place] [phone] Jul, Urinary incontinence, unspec ified type R32 [facility] [address] [id number] [address] [place] [address] [id number] Jul, Dental examination Z01.20 [facility] [address] [id number] [address] [place] [phone] Jul, Urinary incontinence, unspec ified type R32 [facility] [address] [facility] [id number] [address] [place] [phone] Jul, Anxiety F41.9 and Developmen oscar disorder F89 [facility] [address] [id number] [place] [address] [phone] May, Dental examination Z01.[id number] [place] [address] [id number] Apr, Encounter for dental examination Z01.20 [facility] [address] [id number] Apr, Encounter for dental examina tion and cleaning without abnormal findings Z01.20 [facility] [address] [facility] [id number] [address] [place] [phone] Mar, Developmental disorder F89 a nd Anxiety F41.9 [facility] [address] [id number] [address] [place] [address] [id number] February, Dental examination Z01.20 [facility] [address] [facility] [id number] [address] [place] [phone] February, Essential hypertension I10 [facility] [address] [facility] [id number] [address] [place] [phone] February, Arthralgia M25.50 [facility] [address] [id number] [address] [place] [address] [id number] Jan, Encounter for dental examina tion and cleaning without abnormal findings Z01.20 [facility] [address] [id number] [address] [place] [phone] Dec, [facility] [address] [id number] [address] [place] [phone] Nov, Anxiety F41.9 and Developmen oscar disorder F89 [place] [address] [place] [id number] [address] [place] [phone] Nov, [facility] [address] [id number] [address] [place] [phone] Nov, [place] [address] [place] [id number] [place] [phone] Oct, Hyperlipidemia, unspecified hyperlipidemia E78.5 [place] [address] [place] [id number] [address] [place] [phone] Oct, Essential hypertension I10 ; Hyperlipidemia, unspecified hyperlipidemia E78.5 and Prostate cancer screening Z12.5 [place] [address] [place] [id number] [address] [place] [phone] Oct, Essential hypertension I10 ; Hyperlipidemia, unspecified hyperlipidemia E78.5 ; Nicotine abuse Z72.0 ; Anxiety F41.9 ; Developmental disorder F89 and Prostate cancer screening Z12.5 [place] [address] [place] [id number] [address] [place] [phone] Aug, Anxiety F41.9 and Developmen oscar disorder F89 [place] [address] [facility] [id number] [address] [place] [phone] Aug, Essential hypertension I10 a nd Encounter for immunization Z23 [place] [address] [place] [id number] [address] [place] [phone] Aug, Prostate cancer screening Z1 2.5 [place] [address] [place] [id number] [address] [place] [phone] Jun, Hypertension 401.9 [place] [address] [id number] [address] [place] [phone] 18 Jun, 2015 [facility] [address] [id number] [address] [place] [phone] May, Impulse control disorder, un specified 312.30 ; Generalized anxiety disorder 300.02 ; Other specified pervasive developmental disorders, 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 and 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 [id number] [address] [place] [phone] 17 Mar, 2015 Hypertension 401.9 [facility] [address] [id number] [address] [place] [address] [id number] Mar, Dental examination V72.2 [facility] [address] [facility] [id number] [address] [place] [phone] February, Hypertension 401.9 and Hyper lipidemia 272.4 [facility] [address] [facility] [id number] [address] [place] [phone] February, [facility] [address] 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 [id number] [address] [place] [phone] Jan, [facility] [address] [id number] [address] [place] [phone] Jan, [facility] [address] [facility] [id number] [address] [place] [phone] Dec, [facility] [address] [id number] [address] [place] [phone] Dec, [facility] [address] [facility] [id number] [address] [place] [phone] Dec, [facility] [address] [facility] [id number] [address] [place] [phone] Dec, [facility] [address] [id number] [address] [place] [address], [place] [id number] 16 Dec, 2014 [facility] [address] [id number] [address] [place] [address], [place] [id number] Dec, [facility] [address] [id number] [address] [place] [address], [place] [id number] Dec, [facility] [address] [id number] [address] [place] [address], [place] [id number] Dec, [facility] [address] [id number] [address] [place] [address], [place] [id number] Nov, [facility] [address] [id number] [address] [place] [address], [place] [id number] Nov, [facility] [address] [id number] [address] [place] [address], [place] [id number] Nov, [facility] [address] [id number] [address] [place] [address], [place] [id number] Nov, [facility] [address] [id number] [address] [place] [address], [place] [id number] Nov, [facility] [address] [id number] [address] [place] [address], [place] [id number] Nov, [facility] [address] [id number] [address] [place] [address], [place] [id number] Nov, [facility] [address] [id number] [address] [place] [address], [place] [id number] Nov, [facility] [address] [id number] [address] [place] [address], [place] [id number] Oct, [facility] [address] [id number] [address] [place] [address], [place] [id number] Oct, [facility] [address] [id number] [address] [place] [address], [place] [id number] Oct, [facility] [address] [id number] [address] [place] [phone] Oct, [facility] [address] [id number] [address] [place] [address], [place] [id number] Oct, [facility] [address] [id number] [address] [place] [address], [place] [id number] Oct, [facility] [address] [id number] [address] [place] [address], [place] [id number] Sep, [facility] [address] [id number] [address] [place] [address], [place] [id number] Sep, [facility] [address] [id number] [address] [place] [address], [place] [id number] Sep, [facility] [address] [id number] [address] [place] [address], [place] [id number] Sep, [facility] [address] [id number] [address] [place] [address], [place] [id number] Sep, [facility] [address] [id number] [address] [place] [address], [place] [id number] Sep, [facility] [address] [id number] [address] [place] [address], [place] [id number] Aug, [facility] [address] [id number] [address] [place] [address], [place] [id number] Aug, [facility] [address] [id number] [address] [place] [address], [place] [id number] Aug, [facility] [address] [id number] [address] [place] [phone] Aug, [facility] [address] [id number] [address] [place] [address], [place] [id number] Jul, [facility] [address] [id number] [address] [place] [address], [place] [id number] Jul, [facility] [address] [id number] [address] [place] [address], [place] [id number] May, [facility] [address] [id number] [address] [place] [address], [place] [id number] May, [facility] [address] [id number] [address] [place] [address], [place] [id number] Apr, [facility] [address] [id number] [address] [place] [address], [place] [id number] Apr, [facility] [address] [id number] [address] [place] [address], [place] [id number] Mar, [facility] [address] [id number] [address] [place] [address], [place] [id number] Mar, [facility] [address] [id number] [address] [place] [address], [place] [id number] Mar, [facility] [address] [id number] [address] [place] [address], [place] [id number] Mar, [facility] [address] [id number] [address] [place] [address], [place] [id number] February, [facility] [address] [id number] [address] [place] [address], [place] [id number] February, [facility] [address] [id number] [address] [place] [address], [place] [id number] Jan, [facility] [address] [id number] [address] [place] [address], [place] [id number] Jan, [facility] [address] [id number] [address] [place] [address], [place] [id number] Oct, [facility] [address] [id number] [address] [place] [address], [place] [id number] Oct, [facility] [address] [id number] [address] [place] [address], [place] [id number] Oct, [facility] [address] [id number] [address] [place] [address], [place] [id number] Oct, [facility] [address] [id number] [address] [place] [address], [place] [id number] Oct, [facility] [address] [id number] [address] [place] [address], [place] [id number] Oct, [facility] [address] [id number] [address] [place] [address], [place] [id number] Oct, [facility] [address] [id number] [address] [place] [address], [place] [id number] Oct, [facility] [address] [id number] [address] [place] [address], [place] [id number] Oct, [facility] [address] [id number] [address] [place] [address], [place] [id number] Dec, [facility] [address] [id number] [address] [place] [address], [place] [id number] Sep, [facility] [address] [id number] [address] [place] [address], [place] [id number] Sep, [facility] [address] [id number] [address] [place] [address], [place] [id number] May, [facility] [address] [id number] [address] [place] [address], [place] [id number] Apr, [facility] [address] [id number] [address] [place] [address], [place] [id number] Apr, [facility] [address] [id number] [address] [place] [address], [place] [id number] Apr, [facility] [address] [id number] [place] [id number] February, [facility] [address] [id number] [address] [place] [address], [place] [id number] Jan, [facility] [address] [id number] [address] [place] [address], [place] [id number] Dec, [facility] [address] [id number] [address] [place] [address], [place] [id number] Sep, [facility] [address] [id number] [address] [id number] Sep, [facility] [address] [id number] [address] [place] [id number] Aug, [facility] [address] [id number] [address] [place] [id number] Aug, [facility] [address] [facility] [id number] [address] [place] [id number] Jul, [facility] [address] [id number] [address] [place] [id number] Mar, [facility] [address] [facility] [id number] [address] [place] [id number] Mar, [facility] [address] [facility] [id number] [address] [place] [id number] Mar, IMMUNIZATIONS No Known Immunizations SOCIAL HISTORY Never Assessed REASON FOR VISIT PLAN OF CARE VITAL SIGNS Height 68 in 2015-01-09 Weight 164.5 lbs 2015-01-09 Temperature 98 degrees Fahrenheit 2015-01-09 Heart Rate 80 bpm 2015-01-09 Respiratory Rate 20 2015-01-09 Blood pressure systolic 170 mmHg 2015-01-09 Blood pressure diastolic 122 mmHg 2015-01-09 MEDICATIONS Unknown Medications RESULTS No Results PROCEDURES No Known procedures INSTRUCTIONS MEDICATIONS ADMINISTERED No Known Medications MEDICAL (GENERAL) HISTORY Type Description Date Medical History hyperlipidemia Medical History hypertension Medical History mood disorder Medical History mild mental retardation Medical History insomnia Medical History anxiety Medical History Asperger's Surgical History laser eye surgery
--- OUTSIDE RECORDS SUMMARY | 2020-01-04 10:18 | XMS REPORT ---
Author Author Anton CHAVEZ Organization [facility] Address [address] [place] [address] Care Team Providers Care Consulting Practice Director Name Role Phone SCOTTMIKEARIEL Unavailable PROBLEMS Type Condition ICD9-CM Code QSP93-QY Code Onset Dates Condition S tatus SNOMED Code Problem Essential hypertension I10 Active 34821493 Problem Urinary incontinence, unspecified type R32 Active 629880032 Problem Hyperglycemia R73.9 Active 735114 07 Problem Anxiety F41.9 Active 28331277 Problem Hyperlipidemia, unspecified hyperlipidemia E78.5 Active 60919036 Problem Nicotine abuse Z72.0 Active 78262 008 Problem Developmental disorder F89 Active [id number] ALLERGIES No Information ENCOUNTERS Encounter Location Date Diagnosis [facility] [address] [facility] [id number] [address] [place] [phone] May, OUTREACH [facility] [id number] [place] [phone] Apr, [facility] [address] [facility] [id number] [address] [place] [phone] February, [facility] [address] [facility] [id number] [address] [place] [phone] February, Anxiety F41.9 ; Developmenta l disorder F89 and Nicotine abuse Z72.0 [facility] [address] [facility] [id number] [address] [place] [phone] February, Essential hypertension I10 a nd Impacted cerumen, bilateral H61.23 [facility] [address] [id number] [address] [place] [address] [phone] Dec, Oral health maintenance stat us requiring routine preventive dental care K08.9 [facility] [address] [facility] [id number] [address] [place] [phone] Dec, Developmental disorder F89 a nd Anxiety F41.9 [facility] [address] [facility] [id number] [address] [place] [id number] Nov, [facility] [address] [facility] [id number] [address] [place] [phone] Nov, Essential hypertension I10 [facility] [address] [facility] [id number] [address] [place] [phone] Nov, Essential hypertension I10 [facility] [address] [id number] [address] [place] [phone] Nov, Developmental disorder F89 a nd Anxiety F41.9 [facility] [address] [facility] [id number] [address] [place] [phone] Nov, [facility] [address] [facility] [id number] [address] [place] [phone] Nov, Essential hypertension I10 [facility] [address] [facility] [id number] [address] [place] [phone] Oct, Elevated blood sugar R73.09 [facility] [address] [facility] [id number] [address] [place] [phone] Oct, Elevated blood sugar R73.09 [facility] [address] [facility] [id number] [address] [place] [id number] Oct, Encounter for Medicare annua l wellness exam Z00.00 ; Screening PSA (prostate specific antigen) Z12.5 ; Essential hypertension I10 ; Hyperlipidemia, unspecified hyperlipidemia E78.5 ; Nicotine abuse Z72.0 ; Anxiety F41.9 ; Bilateral impacted cerumen H61.23 and Developmental disorder F89 [facility] [address] [facility] [id number] [address] [place] [phone] Oct, Encounter for Medicare annua l wellness exam Z00.00 ; Essential hypertension I10 ; Hyperlipidemia, unspecified hyperlipidemia E78.5 ; Nicotine abuse Z72.0 ; Anxiety F41.9 ; Developmental disorder F89 and Screening PSA (prostate specific antigen) Z12.5 [facility] [address] [id number] [address] [place] [address] [id number] Sep, Dental examination Z01.20 [facility] [address] [id number] [address] [place] [phone] 16 Jul, 2018 Developmental disorder F89 a nd Anxiety F41.9 [facility] [address] [id number] [address] [place] [phone] Jun, Essential hypertension I10 ; Nicotine abuse Z72.0 and Encounter for immunization Z23 [facility] [address] [id number] [address] [place] [address] [id number] Apr, Dental examination Z01.20 [facility] [address] [id number] [address] [place] [address] [id number] Jan, Dental examination Z01.20 [facility] [address] [facility] [id number] [address] [place] [phone] Dec, Developmental disorder F89 a nd Anxiety F41.9 [facility] [address] [facility] [id number] [address] [place] [phone] 14 Nov, 2017 Essential hypertension I10 ; Hyperlipidemia, unspecified hyperlipidemia E78.5 ; Nicotine abuse Z72.0 and Bilateral impacted cerumen H61.23 [facility] [address] [facility] [id number] [address] [place] [phone] Oct, [facility] [address] [id number] [address] [place] [address] [phone] Sep, Encounter for dental exam an d cleaning w/o abnormal findings Z01.20 [facility] [address] [facility] [id number] [address] [place] [phone] Sep, Medicare annual wellness vis it, initial Z00.00 and Encounter for immunization Z23 [facility] [address] [facility] [id number] [address] [place] [phone] Aug, Encounter for immunization Z 23 ; Developmental disorder F89 and Anxiety F41.9 [facility] [address] [id number] [address] [place] [address] [id number] 13 Jun, 2017 Encounter for dental examina tion and cleaning without abnormal findings Z01.20 [facility] [address] [facility] [id number] [address] [place] [phone] 27 Apr, 2017 Anxiety F41.9 and Developmen oscar disorder F89 [facility] [address] [facility] [id number] [address] [place] [phone] 17 Apr, 2017 Essential hypertension I10 a nd Nicotine abuse Z72.0 [place] [id number] [facility] [id number] [place] [address] [phone] Mar, Dental examination Z01.20 [facility] [address] [id number] [address] [place] [address] [id number] 21 Mar, 2017 Encounter for dental examina tion and cleaning without abnormal findings Z01.20 [facility] [address] [facility] [id number] [address] [place] [phone] 05 Jan, 2017 [facility] [address] [id number] [address] [place] [phone] Dec, Developmental disorder F89 a nd Anxiety F41.9 [facility] [address] [id number] [address] [place] [address] [id number] Dec, Encounter for dental examina tion and cleaning without abnormal findings Z01.20 [facility] [address] [facility] [id number] [address] [place] [phone] Sep, Encounter for immunization Z 23 [facility] [address] [facility] [id number] [address] [place] [phone] 08 Sep, 2016 Prostate cancer screening Z1 2.5 and Hyperlipidemia, unspecified hyperlipidemia E78.5 [place] [address] [place] [id number] [address] [place] [phone] 06 Sep, 2016 Annual physical exam Z00.00 ; Encounter for immunization Z23 ; Essential hypertension I10 ; Hyperlipidemia, unspecified hyperlipidemia E78.5 ; Anxiety F41.9 ; Prostate cancer screening Z12.5 and Nicotine abuse Z72.0 [facility] [address] [id number] [address] [place] [phone] Aug, [facility] [address] [id number] [address] [place] [phone] Jul, Urinary incontinence, unspec ified type R32 [facility] [address] [id number] [address] [place] [address] [id number] Jul, Dental examination Z01.20 [facility] [address] [id number] [address] [place] [id number] Jul, Urinary incontinence, unspec ified type R32 [facility] [address] [facility] [id number] [address] [place] [phone] Jul, Anxiety F41.9 and Developmen oscar disorder F89 [facility] [address] [id number] [address] [place] [address] [phone] May, Dental examination Z01.[id number] [place] [address] [phone] Apr, Encounter for dental examination Z01.20 [facility] [address] [place] [address] [id number] Apr, Encounter for dental examina tion and cleaning without abnormal findings Z01.20 [facility] [address] [facility] [id number] [address] [place] [phone] Mar, Developmental disorder F89 a nd Anxiety F41.9 [facility] [address] [id number] [address] [place] [address] [id number] February, Dental examination Z01.20 [facility] [address] [facility] [id number] [address] [place] [phone] February, Essential hypertension I10 [facility] [address] [facility] [id number] [address] [place] [phone] February, Arthralgia M25.50 [facility] [address] [id number] [address] [place] [address] [id number] Jan, Encounter for dental examina tion and cleaning without abnormal findings Z01.20 [facility] [address] [facility] [id number] [address] [place] [phone] Dec, [facility] [address] [facility] [id number] [address] [place] [phone] Nov, Anxiety F41.9 and Developmen oscar disorder F89 [facility] [address] [facility] [id number] [address] [place] [phone] Nov, [facility] [address] [facility] [id number] [address] [place] [phone] Nov, [facility] [id number] [place] [phone] Oct, Hyperlipidemia, unspecified hyperlipidemia E78.5 [facility] [address] [id number] [address] [place] [phone] Oct, Essential hypertension I10 ; Hyperlipidemia, unspecified hyperlipidemia E78.5 and Prostate cancer screening Z12.5 [facility] [address] [id number] [address] [place] [phone] Oct, Essential hypertension I10 ; Hyperlipidemia, unspecified hyperlipidemia E78.5 ; Nicotine abuse Z72.0 ; Anxiety F41.9 ; Developmental disorder F89 and Prostate cancer screening Z12.5 [facility] [address] [id number] [address] [place] [phone] Aug, Anxiety F41.9 and Developmen oscar disorder F89 [facility] [address] [facility] [id number] [address] [place] [phone] Aug, Essential hypertension I10 a nd Encounter for immunization Z23 [facility] [address] [id number] [address] [place] [phone] Aug, Prostate cancer screening Z1 2.5 [facility] [address] [id number] [address] [place] [phone] Jun, Hypertension 401.9 [facility] [address] [id number] [address] [place] [phone] 18 Jun, 2015 [facility] [address] [facility] [id number] [address] [place] [phone] May, Impulse control disorder, un specified 312.30 ; Generalized anxiety disorder 300.02 ; Other specified pervasive developmental disorders, 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 [address] [id number] [address] [place] [address] [id number] Mar, Dental examination V72.2 [facility] [address] [facility] [id number] [address] [place] [phone] February, Hypertension 401.9 and Hyper lipidemia 272.4 [facility] [address] [facility] [id number] [address] [place] [phone] February, [facility] [address] [facility] [id number] [address] [place] [phone] February, Generalized anxiety disorder 300.02 ; Impulse control disorder 312.30 ; 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 and Benign essential HTN 401.1 [facility] [address] [facility] [id number] [address] [place] [phone] Jan, [facility] [address] [facility] [id number] [address] [place] [phone] Jan, [facility] [address] [facility] [id number] [address] [place] [phone] Dec, [facility] [address] [facility] [id number] [address] [place] [phone] Dec, [facility] [address] [facility] [id number] [address] [place] [phone] Dec, [facility] [address] [facility] [id number] [address] [place] [phone] Dec, [facility] [address] [id number] [address] [place] [address], [place] [id number] 16 Dec, 2014 [facility] [address] [id number] [address] [place] [address], [place] [phone] 16 Dec, 2014 [facility] [address] [id number] [address] [place] [address], [place] [phone] Dec, [facility] [address] [id number] [address] [place] [address], [place] [phone] Dec, [facility] [address] [id number] [address] [place] [address], [place] [address] Nov, 2014 [facility] [address] [id number] [address] [place] [address], [place] [phone] Nov, 2014 [facility] [address] [id number] [address] [place] [address], [place] [address] Nov, 2014 [facility] [address] [id number] [address] [place] [address], [place] [phone] Nov, [facility] [address] [id number] [address] [place] [address], [place] [phone] Nov, [facility] [address] [id number] [address] [place] [address], [place] [address] Nov, [facility] [address] [id number] [address] [place] [address], [place] [address] 17 Nov, 2014 [facility] [address] [id number] [address] [place] [address], [place] [address] Nov, [facility] [address] [id number] [address] [place] [phone] Oct, [facility] [address] [id number] [address] [place] [address], [place] [address] Oct, [facility] [address] [id number] [address] [place] [phone] Oct, [facility] [address] [id number] [address] [place] [phone] Oct, [facility] [address] [id number] [address] [place] [address], [place] [address] Oct, [facility] [address] [id number] [address] [place] [address], [place] [address] Oct, [facility] [address] [id number] [address] [place] [address], [place] [address] Sep, [facility] [address] [id number] [address] [place] [address], [place] [address] Sep, [facility] [address] [id number] [address] [place] [address], [place] [address] Sep, [facility] [address] [id number] [address] [place] [address], [place] [address] Sep, [facility] [address] [id number] [address] [place] [address], [place] [address] Sep, [facility] [address] [id number] [address] [place] [address], [place] [address] Sep, [facility] [address] [id number] [address] [place] [address], [place] [address] Aug, [facility] [address] [id number] [address] [place] [address], [place] [address] Aug, [facility] [address] [id number] [address] [place] [address], [place] [address] Aug, [facility] [address] [id number] [address] [place] [phone] Aug, [facility] [address] [id number] [address] [place] [address], [place] [address] Jul, [facility] [address] [id number] [address] [place] [address], [place] [address] Jul, [facility] [address] [id number] [address] [place] [address], [place] [address] May, [facility] [address] [id number] [address] [place] [address], [place] [address] May, [facility] [address] [id number] [address] [place] [address], [place] [address] Apr, [facility] [address] [id number] [address] [place] [address], [place] [address] Apr, [facility] [address] [id number] [address] [place] [address], [place] [address] Mar, [facility] [address] [id number] [address] [place] [address], [place] [address] Mar, [facility] [address] [id number] [address] [place] [address], [place] [address] Mar, [facility] [address] [id number] [address] [place] [address], [place] [address] Mar, [facility] [address] [id number] [address] [place] [address], [place] [address] February, [facility] [address] [id number] [address] [place] [address], [place] [address] February, [facility] [address] [id number] [address] [place] [address], [place] [address] Jan, [facility] [address] [id number] [address] [place] [address], [place] [address] Jan, [facility] [address] [id number] [address] [place] [address], [place] [address] Oct, [facility] [address] [id number] [address] [place] [address], [place] [address] Oct, [facility] [address] [id number] [address] [place] [address], [place] [address] Oct, [facility] [address] [id number] [address] [place] [address], [place] [address] Oct, [facility] [address] [id number] [address] [place] [address], [place] [address] Oct, [facility] [address] [id number] [address] [place] [address], [place] [address] Oct, [facility] [address] [id number] [address] [place] [address], [place] [address] Oct, [facility] [address] [id number] [address] [place] [address], [place] [address] Oct, [facility] [address] [id number] [address] [place] [address], [place] [address] Oct, [facility] [address] [id number] [address] [place] [address], [place] [address] Dec, [facility] [address] [id number] [address] [place] [address], [place] [address] Sep, [facility] [address] [id number] [address] [place] [address], [place] [address] Sep, [facility] [address] [id number] [address] [place] [address], [place] [address] May, [facility] [address] [id number] [address] [place] [address], [place] [address] Apr, [facility] [address] [id number] [address] [place] [address], [place] [address] Apr, [facility] [address] [id number] [address] [place] [address], [place] [address] Apr, [facility] [place] [address] [id number] [place] [id number] February, [facility] [address] [id number] [address] [place] [address], [place] [address] Jan, [facility] [address] [id number] [address] [place] [address], [place] [address] Dec, [facility] [address] [id number] [address] [place] [address], [place] [address] Sep, [facility] [address] [id number] [address] [place] [address] [address] Sep, [facility] [address] [facility] [id number] [address] [place] [phone] Aug, [facility] [address] [facility] [id number] [address] [place] [phone] Aug, [facility] [address] [facility] [id number] [address] [place] [phone] Jul, [facility] [address] [facility] [id number] [address] [place] [phone] Mar, [facility] [address] [facility] [id number] [address] [place] [phone] Mar, [facility] [address] [facility] [id number] [address] [place] [phone] Mar, IMMUNIZATIONS No Known Immunizations SOCIAL HISTORY [...]
--- OUTSIDE RECORDS SUMMARY | 2020-01-04 10:18 | XMS REPORT ---
Author Author Anton CHAVEZ Organization 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 [address] [facility]NOTE 3] [id number] [address] [place] [phone] May, OUTREACH [facility] [id number] [place] [phone] Apr, [facility] [address] [facility]] [id number] [address] [place] [address] February, [facility] [address] [facility]NOTE [facility]] [id number] [address] [place] [address] February, Anxiety F41.9 ; Developmenta l disorder F89 and Nicotine abuse Z72.0 [facility] [address] [facility]NOTE [facility]] [id number] [address] [place] [address] February, Essential hypertension I10 a nd Impacted cerumen, bilateral H61.23 [facility] [address] [id number] [address] [place] [address] [id number] Dec, Oral health maintenance stat us requiring routine preventive dental care K08.9 [facility] [address] [facility]NOTE [facility]] [id number] [address] [place] [address] Dec, Developmental disorder F89 a nd Anxiety F41.9 [facility] [address] [facility]] [id number] [address] [place] [address] Nov, [facility] [address] [facility]] [id number] [address] [place] [address] Nov, Essential hypertension I10 [facility] [address] [facility]] [id number] [address] [place] [address] Nov, Essential hypertension I10 [facility] [address] [id number] [address] [place] [address] Nov, Developmental disorder F89 a nd Anxiety F41.9 [facility] [address] [facility] 3] [id number] [address] [place] [address] Nov, [facility] [address] [facility]] [id number] [address] [place] [address] Nov, Essential hypertension I10 [facility] [address] [facility]] [id number] [address] [place] [address] Oct, Elevated blood sugar R73.09 [facility] [address] [facility]] [id number] [address] [place] [address] Oct, Elevated blood sugar R73.09 [facility] [address] [facility]] [id number] [address] [place] [address] Oct, Encounter for Medicare annua l wellness exam Z00.00 ; Screening PSA (prostate specific antigen) Z12.5 ; Essential hypertension I10 ; Hyperlipidemia, unspecified hyperlipidemia E78.5 ; Nicotine abuse Z72.0 ; Anxiety F41.9 ; Bilateral impacted cerumen H61.23 and Developmental disorder F89 [facility] [address] [facility]] [id number] [address] [place] [address] Oct, Encounter for Medicare annua l wellness exam Z00.00 ; Essential hypertension I10 ; Hyperlipidemia, unspecified hyperlipidemia E78.5 ; Nicotine abuse Z72.0 ; Anxiety F41.9 ; Developmental disorder F89 and Screening PSA (prostate specific antigen) Z12.5 [facility] [address] [id number] [address] [place] [address] [id number] Sep, Dental examination Z01.20 [facility] [address] [id number] [address] [place] [phone] 16 Jul, 2018 Developmental disorder F89 a nd Anxiety F41.9 [facility] [address] [id number] [address] [place] [address] Jun, Essential hypertension I10 ; Nicotine abuse Z72.0 and Encounter for immunization Z23 [facility] [address] [id number] [address] [place] [address] [id number] Apr, Dental examination Z01.20 [facility] [address] [id number] [address] [place] [address] [id number] Jan, Dental examination Z01.20 [facility] [address] [facility]] [id number] [address] [place] [address] Dec, Developmental disorder F89 a nd Anxiety F41.9 [facility] [address] [facility] 3] [id number] [address] [place] [phone] 14 Nov, 2017 Essential hypertension I10 ; Hyperlipidemia, unspecified hyperlipidemia E78.5 ; Nicotine abuse Z72.0 and Bilateral impacted cerumen H61.23 [facility] [address] [facility]] [id number] [address] [place] [address] Oct, [facility] [address] [id number] [address] [place] [address] [phone] Sep, Encounter for dental exam an d cleaning w/o abnormal findings Z01.20 [facility] [address] [facility] 3] [id number] [address] [place] [address] Sep, Medicare annual wellness vis it, initial Z00.00 and Encounter for immunization Z23 [facility] [address] [facility]] [id number] [address] [place] [address] Aug, Encounter for immunization Z 23 ; Developmental disorder F89 and Anxiety F41.9 [facility] [address] [id number] [address] [place] [address] [id number] 13 Jun, 2017 Encounter for dental examina tion and cleaning without abnormal findings Z01.20 [facility] [address] [facility]] [id number] [address] [place] [phone] 27 Apr, 2017 Anxiety F41.9 and Developmen oscar disorder F89 [facility] [address] [facility] 3] [id number] [address] [place] [phone] 17 Apr, 2017 Essential hypertension I10 a nd Nicotine abuse Z72.0 [place] [id number] [facility] [id number] [place] [address] [id number] Mar, Dental examination Z01.20 [facility] [address] [id number] [address] [place] [address] [id number] 21 Mar, 2017 Encounter for dental examina tion and cleaning without abnormal findings Z01.20 [facility] [address] [facility]] [id number] [address] [place] [phone] 05 Jan, 2017 [facility] [address] [id number] [address] [place] [phone] Dec, Developmental disorder F89 a nd Anxiety F41.9 [facility] [address] [id number] [address] [place] [address] [id number] Dec, Encounter for dental examina tion and cleaning without abnormal findings Z01.20 [facility] [address] [facility] 3] [id number] [address] [place] [phone] Sep, Encounter for immunization Z 23 [facility] [address] [facility]] [id number] [address] [place] [phone] 08 Sep, 2016 Prostate cancer screening Z1 2.5 and Hyperlipidemia, unspecified hyperlipidemia E78.5 [place] [address] [id number] [address] [place] [phone] 06 Sep, 2016 Annual physical exam Z00.00 ; Encounter for immunization Z23 ; Essential hypertension I10 ; Hyperlipidemia, unspecified hyperlipidemia E78.5 ; Anxiety F41.9 ; Prostate cancer screening Z12.5 [address] Z72.0 [facility] [address] [id number] [address] [place] [phone] Aug, [facility] [address] [id number] [address] [place] [phone] Jul, Urinary incontinence, unspec ified type R32 [facility] [address] [id number] [address] [place] [address] [id number] Jul, Dental examination Z01.20 [facility] [address] [id number] [address] [place] [phone] Jul, Urinary incontinence, unspec ified type R32 [facility] [address] [facility] 3] [id number] [address] [place] [phone] Jul, Anxiety F41.9 and Developmen oscar disorder F89 [facility] [address] [id number] [address] [place] [address] [id number] May, Dental examination Z01.[address] [id number] [place] [address] [id number] Apr, Encounter for dental examination Z01.20 [facility] [address] [place] [address] [id number] Apr, Encounter for dental examina tion and cleaning without abnormal findings Z01.20 [facility] [address] [facility]] [id number] [address] [place] [phone] Mar, Developmental disorder F89 a nd Anxiety F41.9 [facility] [address] [id number] [address] [place] [address] [id number] February, Dental examination Z01.20 [facility] [address] [facility]] [id number] [address] [place] [phone] February, Essential hypertension I10 [facility] [address] [facility] 3] [id number] [address] [place] [address] February, Arthralgia M25.50 [facility] [address] [id number] [address] [place] [address] [id number] Jan, Encounter for dental examina tion and cleaning without abnormal findings Z01.20 [facility] [address] [facility] 3] [id number] [address] [place] [phone] Dec, [facility] [address] [facility] 3] [id number] [address] [place] [phone] Nov, Anxiety F41.9 and Developmen oscar disorder F89 [facility] [address] [facility] 3] [id number] [address] [place] [phone] Nov, [facility] [address] [facility]] [id number] [address] [place] [phone] Nov, [facility] [id number] [place] [phone] Oct, Hyperlipidemia, unspecified hyperlipidemia E78.5 [facility] [address] [id number] [address] [place] [phone] Oct, Essential hypertension I10 ; Hyperlipidemia, unspecified hyperlipidemia E78.5 and Prostate cancer screening Z12.5 [facility] [address] [id number] [address] [place] [phone] Oct, Essential hypertension I10 ; Hyperlipidemia, unspecified hyperlipidemia E78.5 ; Nicotine abuse Z72.0 ; Anxiety F41.9 ; Developmental disorder F89 and Prostate cancer screening Z12.5 [facility] [address] [id number] [address] [place] [phone] Aug, Anxiety F41.9 and Developmen oscar disorder F89 [facility] [address] [facility] 3] [id number] [address] [place] [phone] Aug, Essential hypertension I10 a nd Encounter for immunization Z23 [facility] [address] [id number] [address] [place] [phone] Aug, Prostate cancer screening Z1 2.5 [facility] [address] [id number] [address] [place] [phone] Jun, Hypertension 401.9 [facility] [address] [id number] [address] [place] [phone] 18 Jun, 2015 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 [address] [facility]] [id number] [address] [place] [phone] Mar, Hypertension 401.9 [facility] [address] [id number] [address] [place] [address] [id number] Mar, Dental examination V72.2 [facility] [address] [facility]] [id number] [address] [place] [phone] February, Hypertension 401.[address] [facility] [address] [facility]] [id number] [address] [place] [address] February, 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 [address] [facility]] [id number] [address] [place] [phone] Jan, [facility] [address] [facility]] [id number] [address] [place] [address] Jan, [facility] [address] [facility]] [id number] [address] [place] [address] Dec, [facility] [address] [facility]] [id number] [address] [place] [phone] Dec, [facility] [address] [facility]] [id number] [address] [place] [phone] Dec, [facility] [address] [facility]] [id number] [address] [place] [phone] Dec, [facility] [address] [id number] [address] [place] [address], [place] [address] 16 Dec, 2014 [facility] [address] [id number] [address] [place] [address], [place] [address] 16 Dec, 2014 [facility] [address] [id number] [address] [place] [address], [place] [address] Dec, [facility] [address] [id number] [address] [place] [address], [place] [address] Dec, [facility] [address] [id number] [address] [place] [address], [place] [address] Nov, 2014 [facility] [address] [id number] [address] [place] [address], [place] [address] Nov, 2014 [facility] [address] [id number] [address] [place] [address], [place] [address] Nov, 2014 [facility] [address] [id number] [address] [place] [address], [place] [address] Nov, [facility] [address] [id number] [address] [place] [address], [place] [address] Nov, [facility] [address] [id number] [address] [place] [address], [place] [address] Nov, [facility] [address] [id number] [address] [place] [address], [place] [address] 17 Nov, 2014 [facility] [address] [id number] [address] [place] [address], [place] [address] Nov, [facility] [address] [id number] [address] [place] [phone] Oct, [facility] [address] [id number] [address] [place] [address], [place] [address] Oct, [facility] [address] [id number] [address] [place] [phone] Oct, [facility] [address] [id number] [address] [place] [phone] Oct, [facility] [address] [id number] [address] [place] [address], [place] [address] Oct, [facility] [address] [id number] [address] [place] [address], [place] [address] Oct, [facility] [address] [id number] [address] [place] [address], [place] [address] Sep, [facility] [address] [id number] [address] [place] [address], [place] [address] Sep, [facility] [address] [id number] [address] [place] [address], [place] [address] Sep, [facility] [address] [id number] [address] [place] [address], [place] [address] Sep, [facility] [address] [id number] [address] [place] [address], [place] [address] Sep, [facility] [address] [id number] [address] [place] [address], [place] [address] Sep, [facility] [address] [id number] [address] [place] [address], [place] [address] Aug, [facility] [address] [id number] [address] [place] [address], [place] [address] Aug, [facility] [address] [id number] [address] [place] [address], [place] [address] Aug, [facility] [address] [id number] [address] [place] [phone] Aug, [facility] [address] [id number] [address] [place] [address], [place] [address] Jul, [facility] [address] [id number] [address] [place] [address], [place] [address] Jul, [facility] [address] [id number] [address] [place] [address], [place] [address] May, [facility] [address] [id number] [address] [place] [address], [place] [address] May, [facility] [address] [id number] [address] [place] [address], [place] [address] Apr, [facility] [address] [id number] [address] [place] [address], [place] [address] Apr, [facility] [address] [id number] [address] [place] [address], [place] [address] Mar, [facility] [address] [id number] [address] [place] [address], [place] [address] Mar, [facility] [address] [id number] [address] [place] [address], [place] [address] Mar, [facility] [address] [id number] [address] [place] [address], [place] [address] Mar, [facility] [address] [id number] [address] [place] [address], [place] [address] February, [facility] [address] [id number] [address] [place] [address], [place] [address] February, [facility] [address] [id number] [address] [place] [address], [place] [address] Jan, [facility] [address] [id number] [address] [place] [address], [place] [address] Jan, [facility] [address] [id number] [address] [place] [address], [place] [address] Oct, [facility] [address] [id number] [address] [place] [address], [place] [address] Oct, [facility] [address] [id number] [address] [place] [address], [place] [address] Oct, [facility] [address] [id number] [address] [place] [address], [place] [address] Oct, [facility] [address] [id number] [address] [place] [address], [place] [address] Oct, [facility] [address] [id number] [address] [place] [address], [place] [address] Oct, [facility] [address] [id number] [address] [place] [address], [place] [address] Oct, [facility] [address] [id number] [address] [place] [address], [place] [address] Oct, [facility] [address] [id number] [address] [place] [address], [place] [address] Oct, [facility] [address] [id number] [address] [place] [address], [place] [address] Dec, [facility] [address] [id number] [address] [place] [address], [place] [address] Sep, [facility] [address] [id number] [address] [place] [address], [place] [address] Sep, [facility] [address] [id number] [address] [place] [address], [place] [address] May, [facility] [address] [id number] [address] [place] [address], [place] [address] Apr, [facility] [address] [id number] [address] [place] [address], [place] [address] Apr, [facility] [address] [id number] [address] [place] [address], [place] [address] Apr, [facility] [address] [id number] [place], [facility] [id number] February, [facility] [address] [id number] [address] [place] [address], [place] [address] Jan, [facility] [address] [id number] [address] [place] [address], [place] [address] Dec, [facility] [address] [id number] [address] [place] [address], [place] [address] Sep, [facility] [address] [id number] [address] [place] [address] [address] Sep, [facility] [address] [id number] [address] [place] [phone] Aug, [facility] [address] [id number] [address] [place] [phone] Aug, [facility] [address] [facility] [id number] [address] [place] [phone] Jul, [facility] [address] [id number] [address] [place] [phone] Mar, [facility] [address] [facility]] [id number] [address] [place] [phone] Mar, [facility] [address] [facility]] [id number] [address] [place] [id number] Mar, IMMUNIZATIONS No Known Immunizations SOCIAL HISTORY Never Assessed REASON FOR VISIT PLAN OF CARE VITAL SIGNS Height 68 in 2015-01-08 Weight 167 lbs 2015-01-08 Temperature 97.6 degrees Fahrenheit 2015-01-08 Heart Rate 73 bpm 2015-01-08 Respiratory Rate 24 2015-01-08 Blood pressure systolic 172 mmHg 2015-01-08 Blood pressure diastolic 108 mmHg 2015-01-08 MEDICATIONS Unknown Medications RESULTS No Results PROCEDURES No Known procedures INSTRUCTIONS MEDICATIONS ADMINISTERED No Known Medications MEDICAL (GENERAL) HISTORY Type Description Date Medical History hyperlipidemia Medical History hypertension Medical History mood disorder Medical History mild mental retardation Medical History insomnia Medical History anxiety Medical History Asperger's Surgical History laser eye surgery
--- OUTSIDE RECORDS SUMMARY | 2020-01-04 10:18 | XMS REPORT ---
Author Author Anton TAYLOR Organization [facility] Address [address] [place] [address] Care Team Providers Care Ecological Economist Name Role Phone BREN TAYLOR Unavailable PROBLEMS Type Condition ICD9-CM Code YOZ32-LZ Code Onset Dates Condition S tatus SNOMED Code Problem Essential hypertension I10 Active 50605404 Problem Urinary incontinence, unspecified type R32 Active 526959574 Problem Hyperglycemia R73.9 Active 324896 07 Problem Anxiety F41.9 Active 36596605 Problem Hyperlipidemia, unspecified hyperlipidemia E78.5 Active 99123205 Problem Nicotine abuse Z72.0 Active 94867 008 Problem Developmental disorder F89 Active [id number] ALLERGIES No Information ENCOUNTERS Encounter Location Date Diagnosis [facility] [address] [facility] [id number] [address] [place] [phone] May, OUTREACH [facility] [address] [place] [id number] [place] [phone] Apr, [facility] [address] [facility] [id number] [address] [place] [phone] February, [facility] [address] [facility] [id number] [address] [place] [phone] February, Anxiety F41.9 ; Developmenta l disorder F89 and Nicotine abuse Z72.0 [facility] [address] [facility] [id number] [address] [place] [phone] February, Essential hypertension I10 a nd Impacted cerumen, bilateral H61.23 [facility] [address] [id number] [address] [place] [address] [id number] Dec, Oral health maintenance stat us requiring routine preventive dental care K08.9 [facility] [address] [facility] [id number] [address] [place] [phone] Dec, Developmental disorder F89 a nd Anxiety F41.9 [facility] [address] [facility] [id number] [address] [place] [phone] Nov, [facility] [address] [facility] [id number] [address] [place] [phone] Nov, Essential hypertension I10 [facility] [address] [facility] [id number] [address] [place] [phone] Nov, Essential hypertension I10 [facility] [address] [id number] [address] [place] [phone] Nov, Developmental disorder F89 a nd Anxiety F41.9 [facility] [address] [facility] [id number] [address] [place] [phone] Nov, [facility] [address] [facility] [id number] [address] [place] [phone] Nov, Essential hypertension I10 [facility] [address] [facility] [id number] [address] [place] [phone] Oct, Elevated blood sugar R73.09 [facility] [address] [facility] [id number] [address] [place] [phone] Oct, Elevated blood sugar R73.09 [facility] [address] [facility] [id number] [address] [place] [phone] Oct, Encounter for Medicare annua l wellness exam Z00.00 ; Screening PSA (prostate specific antigen) Z12.5 ; Essential hypertension I10 ; Hyperlipidemia, unspecified hyperlipidemia E78.5 ; Nicotine abuse Z72.0 ; Anxiety F41.9 ; Bilateral impacted cerumen H61.23 and Developmental disorder F89 [facility] [address] [facility] [id number] [address] [place] [address] Oct, Encounter for Medicare annua l wellness exam Z00.00 ; Essential hypertension I10 ; Hyperlipidemia, unspecified hyperlipidemia E78.5 ; Nicotine abuse Z72.0 ; Anxiety F41.9 ; Developmental disorder F89 and Screening PSA (prostate specific antigen) Z12.5 [facility] [address] [id number] [address] [place] [address] [id number] Sep, Dental examination Z01.20 [facility] [address] [id number] [address] [place] [phone] 16 Jul, 2018 Developmental disorder F89 a nd Anxiety F41.9 [facility] [address] [id number] [address] [place] [phone] Jun, Essential hypertension I10 ; Nicotine abuse Z72.0 and Encounter for immunization Z23 [facility] [address] [id number] [address] [place] [address] [id number] Apr, Dental examination Z01.20 [facility] [address] [id number] [address] [place] [address] [id number] Jan, Dental examination Z01.20 [facility] [address] [facility] [id number] [address] [place] [phone] Dec, Developmental disorder F89 a nd Anxiety F41.9 [facility] [address] [facility] [id number] [address] [place] [phone] 14 Nov, 2017 Essential hypertension I10 ; Hyperlipidemia, unspecified hyperlipidemia E78.5 ; Nicotine abuse Z72.0 and Bilateral impacted cerumen H61.23 [facility] [address] [facility] [id number] [address] [place] [phone] Oct, [facility] [address] [id number] [address] [place] [address] [id number] Sep, Encounter for dental exam an d cleaning w/o abnormal findings Z01.20 [facility] [address] [facility] [id number] [address] [place] [phone] Sep, Medicare annual wellness vis it, initial Z00.00 and Encounter for immunization Z23 [facility] [address] [facility] [id number] [address] [place] [phone] Aug, Encounter for immunization Z 23 ; Developmental disorder F89 and Anxiety F41.9 [facility] [address] [id number] [address] [place] [address] [id number] Jun, 2017 Encounter for dental examina tion and cleaning without abnormal findings Z01.20 [facility] [address] [facility] [id number] [address] [place] [phone] 27 Apr, 2017 Anxiety F41.9 and Developmen oscar disorder F89 [facility] [address] [facility] [id number] [address] [place] [phone] 17 Apr, 2017 Essential hypertension I10 a nd Nicotine abuse Z72.0 [place] [id number] [facility] [id number] [place] [address] [id number] Mar, Dental examination Z01.20 [facility] [address] [id number] [address] [place] [address] [id number] 21 Mar, 2017 Encounter for dental examina tion and cleaning without abnormal findings Z01.20 [facility] [address] [facility] [id number] [address] [place] [phone] 05 Jan, 2017 [facility] [address] [place] [id number] [address] [place] [phone] Dec, Developmental disorder F89 a nd Anxiety F41.9 [facility] [address] [id number] [address] [place] [address] [id number] Dec, Encounter for dental examina tion and cleaning without abnormal findings Z01.20 [facility] [address] [facility] [id number] [address] [place] [phone] Sep, Encounter for immunization Z 23 [facility] [address] [facility] [id number] [address] [place] [phone] 08 Sep, 2016 Prostate cancer screening Z1 2.5 and Hyperlipidemia, unspecified hyperlipidemia E78.5 [place] [address] [place] [id number] [address] [place] [phone] 06 Sep, 2016 Annual physical exam Z00.00 ; Encounter for immunization Z23 ; Essential hypertension I10 ; Hyperlipidemia, unspecified hyperlipidemia E78.5 ; Anxiety F41.9 ; Prostate cancer screening Z12.5 and Nicotine abuse Z72.0 [facility] [address] [id number] [address] [place] [phone] Aug, [facility] [address] [id number] [address] [place] [phone] Jul, Urinary incontinence, unspec ified type R32 [facility] [address] [id number] [address] [place] [address] [id number] Jul, Dental examination Z01.20 [facility] [address] [id number] [address] [place] [phone] Jul, Urinary incontinence, unspec ified type R32 [facility] [address] [facility] [id number] [address] [place] [phone] Jul, Anxiety F41.9 and Developmen oscar disorder F89 [facility] [address] [id number] [address] [place] [address] [id number] May, Dental examination Z01.[id number] [place] [address] [id number] Apr, Encounter for dental examination Z01.20 [facility] [address] [place] [address] [id number] Apr, Encounter for dental examina tion and cleaning without abnormal findings Z01.20 [facility] [address] [facility] [id number] [address] [place] [phone] Mar, Developmental disorder F89 a nd Anxiety F41.9 [facility] [address] [id number] [address] [place] [address] [id number] February, Dental examination Z01.20 [facility] [address] [facility] [id number] [address] [place] [phone] February, Essential hypertension I10 [facility] [address] [facility] [id number] [address] [place] [phone] February, Arthralgia M25.50 [facility] [address] [id number] [address] [place] [address] [id number] Jan, Encounter for dental examina tion and cleaning without abnormal findings Z01.20 [facility] [address] [facility] [id number] [address] [place] [phone] Dec, [facility] [address] [facility] [id number] [address] [place] [phone] Nov, Anxiety F41.9 and Developmen oscar disorder F89 [facility] [address] [facility] [id number] [address] [place] [phone] Nov, [facility] [address] [facility] [id number] [address] [place] [phone] Nov, [facility] [address] [place] [id number] [place] [phone] Oct, Hyperlipidemia, unspecified hyperlipidemia E78.5 [facility] [address] [id number] [address] [place] [phone] Oct, Essential hypertension I10 ; Hyperlipidemia, unspecified hyperlipidemia E78.5 and Prostate cancer screening Z12.5 [facility] [address] [place] [id number] [address] [place] [phone] Oct, Essential hypertension I10 ; Hyperlipidemia, unspecified hyperlipidemia E78.5 ; Nicotine abuse Z72.0 ; Anxiety F41.9 ; Developmental disorder F89 and Prostate cancer screening Z12.5 [facility] [address] [place] [id number] [address] [place] [phone] Aug, Anxiety F41.9 and Developmen oscar disorder F89 [facility] [address] [facility] [id number] [address] [place] [phone] Aug, Essential hypertension I10 a nd Encounter for immunization Z23 [facility] [address] [place] [id number] [address] [place] [phone] Aug, Prostate cancer screening Z1 2.5 [facility] [address] [place] [id number] [address] [place] [phone] Jun, Hypertension 401.9 [facility] [address] [place] [id number] [address] [place] [phone] 18 Jun, 2015 [facility] [address] [facility] [id number] [address] [place] [address] May, Impulse control disorder, un specified 312.30 ; Generalized anxiety disorder 300.02 ; Other specified pervasive developmental disorders, 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 and 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 [facility] [address] [facility] [id number] [address] [place] [phone] Mar, Hypertension 401.9 [facility] [address] [id number] [address] [place] [address] [id number] Mar, Dental examination V72.2 [facility] [address] [facility] [id number] [address] [place] [phone] February, Hypertension 401.9 and Hyper lipidemia 272.4 [facility] [address] [facility] [id number] [address] [place] [phone] February, [facility] [address] [facility] [id number] [address] [place] [phone] February, Generalized anxiety disorder 300.02 ; Impulse control disorder 312.30 ; 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 and Benign essential HTN 401.1 [facility] [address] [facility] [id number] [address] [place] [phone] Jan, [facility] [address] [facility] [id number] [address] [place] [phone] Jan, [facility] [address] [facility] [id number] [address] [place] [phone] Dec, [facility] [address] [facility] [id number] [address] [place] [phone] Dec, [facility] [address] [facility] [id number] [address] [place] [phone] Dec, [facility] [address] [facility] [id number] [address] [place] [phone] Dec, [facility] [address] [id number] [address] [place] [address], [place] [phone] 16 Dec, 2014 [facility] [address] [id number] [address] [place] [address], [place] [phone] 16 Dec, 2014 [facility] [address] [id number] [address] [place] [address], [place] [phone] Dec, [facility] [address] [id number] [address] [place] [address], [place] [phone] Dec, [facility] [address] [id number] [address] [place] [address], [place] [phone] Nov, 2014 [facility] [address] [id number] [address] [place] [address], [place] [phone] Nov, 2014 [facility] [address] [id number] [address] [place] [address], [place] [phone] Nov, 2014 [facility] [address] [id number] [address] [place] [address], [place] [phone] Nov, [facility] [address] [id number] [address] [place] [address], [place] [phone] Nov, [facility] [address] [id number] [address] [place] [address], [place] [phone] Nov, [facility] [address] [id number] [address] [place] [address], [place] [phone] 17 Nov, 2014 [facility] [address] [id number] [address] [place] [address], [place] [phone] Nov, [facility] [address] [id number] [address] [place] [phone] Oct, [facility] [address] [id number] [address] [place] [address], [place] [phone] Oct, [facility] [address] [id number] [address] [place] [phone] Oct, [facility] [address] [id number] [address] [place] [phone] Oct, [facility] [address] [id number] [address] [place] [address], [place] [id number] Oct, [facility] [address] [id number] [address] [place] [address], [place] [phone] Oct, [facility] [address] [id number] [address] [place] [address], [place] [phone] Sep, [facility] [address] [id number] [address] [place] [address], [place] [phone] Sep, [facility] [address] [id number] [address] [place] [address], [place] [phone] Sep, [facility] [address] [id number] [address] [place] [address], [place] [phone] Sep, [facility] [address] [id number] [address] [place] [address], [place] [phone] Sep, [facility] [address] [id number] [address] [place] [address], [place] [phone] Sep, [facility] [address] [id number] [address] [place] [address], [place] [phone] Aug, [facility] [address] [id number] [address] [place] [address], [place] [phone] Aug, [facility] [address] [id number] [address] [place] [address], [place] [phone] Aug, [facility] [address] [id number] [address] [place] [phone] Aug, [facility] [address] [id number] [address] [place] [address], [place] [phone] Jul, [facility] [address] [id number] [address] [place] [address], [place] [phone] Jul, [facility] [address] [id number] [address] [place] [address], [place] [phone] May, [facility] [address] [id number] [address] [place] [address], [place] [phone] May, [facility] [address] [id number] [address] [place] [address], [place] [phone] Apr, [facility] [address] [id number] [address] [place] [address], [place] [phone] Apr, [facility] [address] [id number] [address] [place] [address], [place] [phone] Mar, [facility] [address] [id number] [address] [place] [address], [place] [phone] Mar, [facility] [address] [id number] [address] [place] [address], [place] [phone] Mar, [facility] [address] [id number] [address] [place] [address], [place] [phone] Mar, [facility] [address] [id number] [address] [place] [address], [place] [phone] February, [facility] [address] [id number] [address] [place] [address], [place] [phone] February, [facility] [address] [id number] [address] [place] [address], [place] [phone] Jan, [facility] [address] [id number] [address] [place] [address], [place] [phone] Jan, [facility] [address] [id number] [address] [place] [address], [place] [phone] Oct, [facility] [address] [id number] [address] [place] [address], [place] [phone] Oct, [facility] [address] [id number] [address] [place] [address], [place] [phone] Oct, [facility] [address] [id number] [address] [place] [address], [place] [phone] Oct, [facility] [address] [id number] [address] [place] [address], [place] [phone] Oct, [facility] [address] [id number] [address] [place] [address], [place] [phone] Oct, [facility] [address] [id number] [address] [place] [address], [place] [phone] Oct, [facility] [address] [id number] [address] [place] [address], [place] [phone] Oct, [facility] [address] [id number] [address] [place] [address], [place] [phone] Oct, [facility] [address] [id number] [address] [place] [address], [place] [phone] Dec, [facility] [address] [id number] [address] [place] [address], [place] [phone] Sep, [facility] [address] [id number] [address] [place] [address], [place] [phone] Sep, [facility] [address] [id number] [address] [place] [address], [place] [phone] May, [facility] [address] [id number] [address] [place] [address], [place] [phone] Apr, [facility] [address] [id number] [address] [place] [address], [place] [phone] Apr, [facility] [address] [id number] [address] [place] [address], [place] [phone] Apr, [facility] [place] [address] [id number] [place] [id number] February, [facility] [address] [id number] [address] [place] [address], [place] [phone] Jan, [facility] [address] [id number] [address] [place] [address], [place] [phone] Dec, [facility] [address] [id number] [address] [place] [address], [place] [phone] Sep, [facility] [address] [id number] [address] [place] [address] [address] Sep, [facility] [address] [facility] [id number] [address] [place] [phone] Aug, [facility] [address] [facility] [id number] [address] [place] [phone] Aug, [facility] [address] [facility] [id number] [address] [place] [phone] Jul, [facility] [address] [facility] [id number] [address] [place] [id number] Mar, [facility] [address] [facility] [id number] [address] [place] [id number] Mar, [facility] [address] [facility] [id number] [address] [place] [id number] Mar, IMMUNIZATIONS No Known Immunizations SOCIAL HISTORY [...]
--- OUTSIDE RECORDS SUMMARY | 2020-01-04 10:19 | XMS REPORT ---
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 Name Role Phone Migration, Doctor Unavailable Unavailable PROBLEMS Type Condition ICD9-CM Code [id number] Code Onset Dates Condition S tatus SNOMED Code Problem Essential hypertension I10 Active 88282370 Problem Urinary incontinence, unspecified type R32 Active 532409466 Problem Hyperglycemia R73.9 Active 921231 07 Problem Anxiety F41.9 Active 71158338 Problem Hyperlipidemia, unspecified hyperlipidemia E78.5 Active 96870055 Problem Nicotine abuse Z72.0 Active 40664 008 Problem Developmental disorder F89 Active 6880898 ALLERGIES No Information ENCOUNTERS Encounter Location Date Diagnosis [facility] [address] [facility] [id number] [address] [place] [id number] February, [facility] [address] [facility] [id number] [address] [place] [address] February, [facility] [address] [facility] [id number] [address] [place] [address] [phone] Dec, Oral health maintenance stat us requiring routine preventive dental care K08.9 [facility] [address] [facility] [id number] [address] [place] [phone] Dec, Developmental disorder F89 a nd Anxiety F41.9 [facility] [address] [facility] [id number] [address] [place] [id number] Nov, [facility] [address] [facility] [id number] [address] [place] [phone] Nov, Essential hypertension I10 [facility] [address] [facility] [id number] [address] [place] [address] Nov, Essential hypertension I10 [facility] [address] [facility] [id number] [address] [place] [address] Nov, Developmental disorder F89 a nd Anxiety F41.9 [facility] [address] [facility] [id number] [address] [place] [id number] 14 Nov, 2018 [facility] [address] [facility] [id number] [address] [place] [id number] Nov, Essential hypertension I10 [place] [address] [facility] [id number] [address] [place] [id number] Oct, Elevated blood sugar R73.09 [facility] [address] [facility] [id number] [address] [place] [address] Oct, Elevated blood sugar R73.09 [place] [address] [facility] [id number] [address] [place] [id number] 15 Oct, 2018 Encounter for Medicare annua l wellness exam Z00.00 ; Screening PSA (prostate specific antigen) Z12.5 ; Essential hypertension I10 ; Hyperlipidemia, unspecified hyperlipidemia E78.5 ; Nicotine abuse Z72.0 ; Anxiety F41.9 ; Bilateral impacted cerumen H61.23 and Developmental disorder F89 [place] [address] [facility] [id number] [address] [place] [address] Oct, Encounter for Medicare annua l wellness exam Z00.00 ; Essential hypertension I10 ; Hyperlipidemia, unspecified hyperlipidemia E78.5 ; Nicotine abuse Z72.0 ; Anxiety F41.9 ; Developmental disorder F89 and Screening PSA (prostate specific antigen) Z12.5 [facility] [address] [place] [id number] [address] [place] [address] [id number] Sep, Dental examination Z01.20 [facility] [address] [facility] [id number] [address] [place] [id number] 16 Jul, 2018 Developmental disorder F89 a nd Anxiety F41.9 [place] [address] [facility] [id number] [address] [place] [id number] 26 Jun, 2018 Essential hypertension I10 ; Nicotine abuse Z72.0 and Encounter for immunization Z23 [facility] [address] [id number] [address] [place] [address] [id number] Apr, Dental examination Z01.20 [facility] [address] [facility] [id number] [address] [place] [id number] Jan, Dental examination Z01.20 [facility] [address] [place] [id number] [address] [place] [id number] Dec, Developmental disorder F89 a nd Anxiety F41.9 [facility] [address] [id number] 14 Nov, 2017 Essential hypertension I10 ; Hyperlipidemia, unspecified hyperlipidemia E78.5 ; Nicotine abuse Z72.0 and Bilateral impacted cerumen H61.23 [facility] [address] [place] [id number] [address] [place] [id number] Oct, [facility] [address] [facility] [id number] [address] [place] [address] [id number] Sep, Encounter for dental exam an d cleaning w/o abnormal findings Z01.20 [place] [address] [place] [id number] [address] [place] [id number] 11 Sep, 2017 Medicare annual wellness vis it, initial Z00.00 and Encounter for immunization Z23 [place] [address] [place] [id number] [address] [place] [address] Aug, Encounter for immunization Z 23 ; Developmental disorder F89 and Anxiety F41.9 [facility] [address] [facility] [id number] [address] [place] [address] [id number] Jun, Encounter for dental examina tion and cleaning without abnormal findings Z01.20 [facility] [address] [facility] [id number] [address] [place] [id number] Apr, Anxiety F41.9 and Developmen oscar disorder F89 [place] [address] [place] [id number] [address] [place] [id number] Apr, Essential hypertension I10 a nd Nicotine abuse Z72.0 [facility] [id number] [place] [address] [id number] 21 Samir, 2017 Dental examination Z01.20 [facility] [address] [id number] [address] [place] [address] [id number] Mar, Encounter for dental examina tion and cleaning without abnormal findings Z01.20 [facility] [address] [id number] [address] [place] [id number] Jan, [facility] [address] [facility] [id number] [address] [place] [id number] Dec, Developmental disorder F89 a nd Anxiety F41.9 [facility] [address] [id number] [address] [place] [address] [id number] Dec, Encounter for dental examina tion and cleaning without abnormal findings Z01.20 [facility] [address] [facility] [id number] [address] [place] [phone] Sep, Encounter for immunization Z 23 [facility] [address] [facility] [id number] [address] [place] [address] Sep, Prostate cancer screening Z1 2.5 and Hyperlipidemia, unspecified hyperlipidemia E78.5 [place] [address] [place] [id number] [address] [place] [address] Sep, Annual physical exam Z00.00 ; Encounter for immunization Z23 ; Essential hypertension I10 ; Hyperlipidemia, unspecified hyperlipidemia E78.5 ; Anxiety F41.9 ; Prostate cancer screening Z12.5 and Nicotine abuse Z72.0 [facility] [address] [facility] [id number] [address] [place] [id number] Aug, [facility] [address] [facility] [id number] [address] [place] [phone] Jul, Urinary incontinence, unspec ified type R32 [facility] [address] [id number] [address] [place] [address] [id number] Jul, Dental examination Z01.20 [facility] [address] [facility] [id number] [address] [place] [address] Jul, Urinary incontinence, unspec ified type R32 [facility] [address] [id number] [address] [place] [phone] Jul, Anxiety F41.9 and Developmen oscar disorder F89 [facility] [address] [id number] [address] [place] [address] [id number] May, Dental examination Z01.20 [place] [id number] [facility] [id number] [place] [address] [id number] Apr, Encounter for dental examination Z01.20 [facility] [address] [id number] [address] [place] [address] [id number] Apr, Encounter for dental examina tion and cleaning without abnormal findings Z01.20 [facility] [address] [id number] [address] [place] [phone] Mar, Developmental disorder F89 a nd Anxiety F41.9 [facility] [address] [id number] [address] [place] [address] [id number] February, Dental examination Z01.20 [facility] [address] [id number] [address] [place] [phone] February, Essential hypertension I10 [facility] [address] [facility] [id number] [address] [place] [id number] February, Arthralgia M25.50 [facility] [address] [id number] [address] [place] [address] [phone] Jan, Encounter for dental examina tion and cleaning without abnormal findings Z01.20 [facility] [address] [facility] [id number] [address] [place] [id number] Dec, [facility] [address] [id number] [address] [place] [phone] Nov, Anxiety F41.9 and Developmen oscar disorder F89 [facility] [address] [id number] [address] [place] [phone] Nov, [facility] [address] [facility] [id number] [address] [place] [id number] Nov, [facility] [address] [place] [id number] [address] [place] [id number] Oct, Hyperlipidemia, unspecified hyperlipidemia E78.5 [facility] [address] [place] [id number] [address] [place] [address] Oct, Essential hypertension I10 ; Hyperlipidemia, unspecified hyperlipidemia E78.5 and Prostate cancer screening Z12.5 [facility] [address] [address] Oct, Essential hypertension I10 ; Hyperlipidemia, unspecified hyperlipidemia E78.5 ; Nicotine abuse Z72.0 ; Anxiety F41.9 ; Developmental disorder F89 and Prostate cancer screening Z12.5 [facility] [address] [place] [id number] [address] [place] [address] Aug, Anxiety F41.9 and Developmen oscar disorder F89 [facility] [address] [id number] Aug, Essential hypertension I10 a nd Encounter for immunization Z23 [facility] [address] [id number] 04 Aug, 2015 Prostate cancer screening Z1 2.5 [facility] [address] [place] [id number] [address] [place] [id number] 29 Jun, 2015 Hypertension 401.9 [facility] [address] [place] [id number] [address] [place] [address] Jun, [facility] [address] [place] [id number] [address] [place] [address] May, Impulse control disorder, un specified 312.30 ; Generalized anxiety disorder 300.02 ; Other specified pervasive developmental disorders, 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 and 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 [facility] [address] [place] [id number] [address] [place] [address] Mar, Hypertension 401.9 [facility] [address] [place] [id number] [address] [place] [address] [id number] 15 Mar, 2015 Dental examination V72.2 [facility] [address] [id number] [address] [place] [id number] February, Hypertension 401.9 and Hyper lipidemia 272.4 [facility] [address] [id number] [address] [place] [id number] February, [facility] [address] [id number] [address] [place] [id number] February, Generalized anxiety disorder 300.02 ; Impulse control disorder 312.30 ; 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 and Benign essential HTN 401.1 [facility] [address] [id number] [address] [place] [phone] Jan, [facility] [address] [id number] [address] [place] [phone] Jan, [facility] [address] [id number] [address] [place] [id number] 18 Dec, 2014 [facility] [address] [id number] [address] [place] [phone] 18 Dec, 2014 [facility] [address] [id number] [address] [place] [id number] Dec, [facility] [address] [id number] [address] [place] [address] Dec, [facility] [address] [id number] [address] [place] [id number] 16 Dec, 2014 [facility] [address] [id number] [address] [place] [phone] Dec, [facility] [address] [id number] [address] [place] [phone] Dec, [facility] [address] [id number] [address] [place] [id number] Dec, [facility] [address] [id number] [address] [place] [id number] Nov, [facility] [address] [id number] [address] [place] [address], [place] [id number] 20 Nov, 2014 [facility] [address] [id number] [address] [place] [address], [place] [id number] Nov, 2014 [facility] [address] [id number] [address] [place] [address], [place] [id number] Nov, 2014 [facility] [address] [id number] [address] [place] [address], [place] [id number] Nov, 2014 [facility] [address] [id number] [address] [place] [address], [place] [id number] Nov, 2014 [facility] [address] [id number] [address] [place] [address], [place] [id number] Nov, [facility] [address] [id number] [address] [place] [address], [place] [id number] Nov, [facility] [address] [id number] [address] [place] [address], [place] [id number] Oct, [facility] [address] [id number] [address] [place] [address], [place] [id number] Oct, [facility] [address] [id number] [address] [place] [address], [place] [id number] Oct, [facility] [address] [id number] [address] [place] [address], [place] [id number] Oct, [facility] [address] [id number] [address] [place] [address], [place] [id number] Oct, [facility] [address] [id number] [address] [place] [address], [place] [id number] Oct, [facility] [address] [id number] [address] [place] [address], [place] [id number] Sep, [facility] [address] [id number] [address] [place] [address], [place] [id number] Sep, [facility] [address] [id number] [address] [place] [id number] Sep, [facility] [address] [id number] [address] [place] [address], [place] [id number] Sep, [facility] [address] [id number] [address] [place] [address], [place] [id number] Sep, [facility] [address] [id number] [address] [place] [address], [place] [id number] Sep, [facility] [address] [id number] [address] [place] [address], [place] [id number] Aug, [facility] [address] [id number] [address] [place] [address], [place] [id number] Aug, [facility] [address] [id number] [address] [place] [address], [place] [id number] Aug, [facility] [address] [id number] [address] [place] [address], [place] [id number] Aug, [facility] [address] [id number] [address] [place] [address], [place] [id number] Jul, [facility] [address] [id number] [address] [place] [address], [place] [id number] Jul, [facility] [address] [id number] [address] [place] [address], [place] [id number] May, [facility] [address] [id number] [address] [place] [address], [place] [id number] May, [facility] [address] [id number] [address] [place] [address], [place] [id number] Apr, [facility] [address] [id number] [address] [place] [address], [place] [id number] Apr, [facility] [address] [id number] [address] [place] [address], [place] [id number] Mar, [facility] [address] [id number] [address] [place] [address], [place] [id number] Mar, [facility] [address] [id number] [address] [place] [address], [place] [id number] Mar, [facility] [address] [id number] [address] [place] [address], [place] [id number] Mar, [facility] [address] [id number] [address] [place] [address], [place] [id number] February, [facility] [address] [id number] [address] [place] [address], [place] [id number] February, [facility] [address] [id number] [address] [place] [address], [place] [id number] Jan, [facility] [address] [id number] [address] [place] [address], [place] [id number] Jan, [facility] [address] [id number] [address] [place] [address], [place] [id number] Oct, [facility] [address] [id number] [address] [place] [address], [place] [id number] Oct, [facility] [address] [id number] [address] [place] [address], [place] [id number] Oct, [facility] [address] [id number] [address] [place] [address], [place] [id number] Oct, [facility] [address] [id number] [address] [place] [address], [place] [id number] Oct, [facility] [address] [id number] [address] [place] [address], [place] [id number] Oct, [facility] [address] [id number] [address] [place] [address], [place] [id number] Oct, [facility] [address] [id number] [address] [place] [address], [place] [id number] Oct, [facility] [address] [id number] [address] [place] [address], [place] [id number] Oct, [facility] [address] [id number] [address] [place] [address], [place] [id number] Dec, [facility] [address] [id number] [address] [place] [address], [place] [id number] Sep, [facility] [address] [id number] [address] [place] [address], [place] [id number] Sep, [facility] [address] [id number] [address] [place] [address], [place] [id number] May, [facility] [address] [id number] [address] [place] [address], [place] [id number] Apr, [facility] [address] [id number] [address] [place] [address], [place] [id number] Apr, [facility] [address] [id number] [address] [place] [address], [place] [id number] Apr, [facility] [place] [address] [id number] [place], [facility] [id number] February, [facility] [address] [id number] [address] [place] [address], [place] [id number] Jan, [facility] [address] [id number] [address] [place] [address], [place] [id number] Dec, [facility] [address] [id number] [address] [place] [address], [place] [id number] Sep, [facility] [address] [id number] [address] [place] [address], [place] [id number] Sep, [facility] [address] [id number] [address] [place] [address], [place] [id number] Aug, [facility] [address] [id number] [address] [place] [address], [place] [id number] Aug, [facility] [address] [id number] [address] [place] [address], [place] [id number] Jul, [facility] [address] [id number] [address] [place] [address], [place] [id number] Mar, [facility] [address] [id number] [address] [place] [address], [place] [id number] Mar, [facility] [address] [facility] [id number] [address] [place] [address] Mar, IMMUNIZATIONS No Known Immunizations SOCIAL HISTORY Never Assessed REASON FOR VISIT EMR[place] [place] OF CARE VITAL SIGNS MEDICATIONS Medication Instructions Dosage Frequency Start Date End Date Duration S tatus Lisinopril 20 mg take 1 tablet by Oral route 1 time per day Dec, Active Clonidine HCl 0.1 mg 1 tablet by Oral route 1 time per day qHS Nov, Active propranolol 10 mg 1 tablet by Oral rou te 3 times per day AM, 12n and HS for hypertension Dec, Active Risperdal 1 mg 1 tablet by Oral route 2 times per day for anger/aggression Oct, Active HydrOXYzine Pamoate 25 mg 1 Capsule by Oral route 3 ti mes per day Dec, Active Travoprost 0.004 % 2.5 mL by Ophthalmic route 1 time p er day qHS Dec, Active Tamiflu 75 mg 1 capsule by Oral ro council 1 time per day for 10 day(s) Prophylaxis Dosing Nov, Active RESULTS No Results PROCEDURES No Known procedures INSTRUCTIONS MEDICATIONS ADMINISTERED No Known Medications MEDICAL (GENERAL) HISTORY Type Description Date Medical History hyperlipidemia Medical History hypertension Medical History mood disorder Medical History mild mental retardation Medical History insomnia Medical History anxiety Medical History Asperger's Surgical History laser eye surgery
--- OUTSIDE RECORDS SUMMARY | 2020-01-04 10:19 | XMS REPORT ---
Author Author Anton CHAVEZ Organization [facility] Address [address] [place] [address] Care Team Providers Care Loan Review Officer Name Role Phone SCOTTMIKEARIEL Unavailable PROBLEMS Type Condition ICD9-CM Code VFG68-CE Code Onset Dates Condition S tatus SNOMED Code Problem Urinary incontinence, unspecified type R32 Active [id number] Problem Developmental disorder F89 Active 8491649 Problem Nicotine abuse Z72.0 Active 63827 008 Problem Hyperlipidemia, unspecified hyperlipidemia E78.5 Active 75246195 Problem Anxiety F41.9 Active 11183662 Problem Essential hypertension I10 Active [id number] ALLERGIES No Information ENCOUNTERS Encounter Location Date Diagnosis [facility] [address] [id number] [address] [place] [phone] Nov, [facility] [address] [id number] [address] [place] [phone] 16 Jul, 2018 Developmental disorder F89 a nd Anxiety F41.9 [facility] [address] [facility] [id number] [address] [place] [phone] Jun, Essential hypertension I10 ; Nicotine abuse Z72.0 and Encounter for immunization Z23 [facility] [address] [id number] [address] [place] [phone] Apr, Dental examination Z01.20 [facility] [address] [id number] [address] [place] [address] [id number] Jan, Dental examination Z01.20 [facility] [address] [facility] [id number] [address] [place] [phone] Dec, Developmental disorder F89 a nd Anxiety F41.9 [facility] [address] [facility] [id number] [address] [place] [phone] 14 Nov, 2017 Essential hypertension I10 ; Hyperlipidemia, unspecified hyperlipidemia E78.5 ; Nicotine abuse Z72.0 and Bilateral impacted cerumen H61.23 [facility] [address] [facility] [id number] [address] [place] [phone] Oct, [facility] [address] [id number] [address] [place] [address] [phone] Sep, Encounter for dental exam an d cleaning w/o abnormal findings Z01.20 [place] [address] [facility] [id number] [address] [place] [phone] 11 Sep, 2017 Medicare annual wellness vis it, initial Z00.00 and Encounter for immunization Z23 [place] [address] [facility] [id number] [address] [place] [phone] Aug, Encounter for immunization Z 23 ; Developmental disorder F89 and Anxiety F41.9 [facility] [address] [facility] [id number] [place] [address] [phone] Jun, Encounter for dental examina tion and cleaning without abnormal findings Z01.20 [facility] [address] [facility] [id number] [address] [place] [phone] Apr, Anxiety F41.9 and Developmen oscar disorder F89 [facility] [address] [facility] [id number] [address] [place] [phone] Apr, Essential hypertension I10 a nd Nicotine abuse Z72.[id number] [place] [address] [phone] Mar, Dental examination Z01.20 [facility] [address] [id number] [address] [place] [address] [id number] Mar, Encounter for dental examina tion and cleaning without abnormal findings Z01.20 [facility] [address] [facility] [id number] [address] [place] [phone] Jan, [facility] [address] [facility] [id number] [address] [place] [phone] Dec, Developmental disorder F89 a nd Anxiety F41.9 [facility] [address] [id number] [address] [place] [address] [id number] Dec, Encounter for dental examina tion and cleaning without abnormal findings Z01.20 [facility] [address] [facility] [id number] [address] [place] [phone] 15 Sep, 2016 Encounter for immunization Z 23 [facility] [address] [facility] [id number] [address] [place] [phone] 08 Sep, 2016 Prostate cancer screening Z1 2.5 and Hyperlipidemia, unspecified hyperlipidemia E78.5 [place] [address] [facility] [id number] [address] [place] [phone] 06 Sep, 2016 Annual physical exam Z00.00 ; Encounter for immunization Z23 ; Essential hypertension I10 ; Hyperlipidemia, unspecified hyperlipidemia E78.5 ; Anxiety F41.9 ; Prostate cancer screening Z12.5 and Nicotine abuse Z72.0 [place] [address] [address] [place] [address] [id number] [address] [place] [phone] Aug, [facility] [address] [id number] [address] [place] [phone] Jul, Urinary incontinence, unspec ified type R32 [facility] [id number] [place] [address] [id number] Jul, Dental examination Z01.20 [facility] [address] [id number] [address] [place] [phone] Jul, Urinary incontinence, unspec ified type R32 [facility] [address] [id number] [address] [place] [phone] Jul, Anxiety F41.9 and Developmen oscar disorder F89 [facility] [address] [id number] [address] [place] [address] [phone] May, Dental examination Z01.20 [facility] [address] [id number] [id number] Apr, Encounter for dental examination Z01.20 [facility] [address] [id number] [address] [place] [address] [id number] Apr, Encounter for dental examina tion and cleaning without abnormal findings Z01.20 [facility] [address] [facility] [id number] [address] [place] [phone] Mar, Developmental disorder F89 a nd Anxiety F41.9 [facility] [address] [facility] [id number] [address] [place] [address] [phone] February, Dental examination Z01.20 [facility] [address] [facility] [id number] [address] [place] [phone] February, Essential hypertension I10 [place] [address] [facility] [id number] [address] [place] [phone] February, Arthralgia M25.50 [facility] [address] [id number] [address] [place] [address] [phone] Jan, Encounter for dental examina tion and cleaning without abnormal findings Z01.20 [facility] [address] [facility] [id number] [address] [place] [phone] Dec, [facility] [address] [facility] [id number] [address] [place] [phone] Nov, Anxiety F41.9 and Developmen oscar disorder F89 [facility] [address] [facility] [id number] [address] [place] [phone] Nov, [facility] [address] [facility] [id number] [address] [place] [phone] Nov, [facility] [address] [facility] [id number] [address] [place] [phone] Oct, Hyperlipidemia, unspecified hyperlipidemia E78.5 [place] [address] [facility] [id number] [address] [place] [phone] Oct, Essential hypertension I10 ; Hyperlipidemia, unspecified hyperlipidemia E78.5 and Prostate cancer screening Z12.5 [place] [address] [facility] [id number] [address] [place] [phone] Oct, Essential hypertension I10 ; Hyperlipidemia, unspecified hyperlipidemia E78.5 ; Nicotine abuse Z72.0 ; Anxiety F41.9 ; Developmental disorder F89 and Prostate cancer screening Z12.5 [facility] [address] [place] [phone] Aug, Anxiety F41.9 and Developmen oscar disorder F89 [facility] [address] [id number] [address] [place] [phone] Aug, Essential hypertension I10 a nd Encounter for immunization Z23 [facility] [address] [place] [phone] Aug, Prostate cancer screening Z1 2.5 [facility] [address] [place] [phone] Jun, Hypertension 401.9 [facility] [address] [address] Jun, [facility] [address] [phone] May, Impulse control disorder, un specified 312.30 ; Generalized anxiety disorder 300.02 ; Other specified pervasive developmental disorders, 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 and 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 [facility] [address] [id number] [address] [place] [phone] Mar, Hypertension 401.9 [facility] [address] [id number] [address] [place] [address] [id number] Mar, Dental examination V72.2 [facility] [address] [place] [phone] February, Hypertension 401.9 and Hyper lipidemia 272.4 [facility] [address] [id number] [address] [place] [phone] February, [facility] [address] [id number] [address] [place] [phone] February, Generalized anxiety disorder 300.02 ; Impulse control disorder 312.30 ; 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 and Benign essential HTN 401.1 [facility] [address] [id number] [address] [place] [address], [place] [address] 14 Jan, 2015 [facility] [address] [id number] [address] [place] [phone] 13 Jan, 2015 [facility] [address] [id number] [address] [place] [phone] 18 Dec, 2014 [facility] [address] [id number] [address] [place] [phone] 18 Dec, 2014 [facility] [address] [id number] [address] [place] [id number] 17 Dec, 2014 [facility] [address] [id number] [address] [place] [phone] 17 Dec, 2014 [facility] [address] [id number] [address] [place] [phone] 16 Dec, 2014 [facility] [address] [id number] [address] [place] [phone] 16 Dec, 2014 [facility] [address] [id number] [address] [place] [phone] 09 Dec, 2014 [facility] [address] [id number] [address] [place] [id number] 09 Dec, 2014 [facility] [address] [id number] [address] [place] [id number] 20 Nov, 2014 [facility] [address] [id number] [address] [place] [phone] 20 Nov, 2014 [facility] [address] [id number] [address] [place] [phone] 19 Nov, 2014 [facility] [address] [id number] [address] [place] [phone] 19 Nov, 2014 [facility] [address] [id number] [address] [place] [phone] 18 Nov, 2014 [facility] [address] [id number] [address] [place] [address], [place] [address] 18 Nov, 2014 [facility] [address] [id number] [address] [place] [address], [place] [address] Nov, [facility] [address] [id number] [address] [place] [address], [place] [address] Nov, [facility] [address] [id number] [address] [place] [address], [place] [address] Oct, [facility] [address] [id number] [address] [place] [address], [place] [address] Oct, [facility] [address] [id number] [address] [place] [address], [place] [address] Oct, [facility] [address] [id number] [address] [place] [address], [place] [address] Oct, [facility] [address] [id number] [address] [place] [address], [place] [address] Oct, [facility] [address] [id number] [address] [place] [address], [place] [address] Oct, [facility] [address] [id number] [address] [place] [address], [place] [address] Sep, [facility] [address] [id number] [address] [place] [address], [place] [address] Sep, [facility] [address] [id number] [address] [place] [address], [place] [address] Sep, [facility] [address] [id number] [address] [place] [address], [place] [address] Sep, [facility] [address] [id number] [address] [place] [address], [place] [address] Sep, [facility] [address] [id number] [address] [place] [address], [place] [address] Sep, [facility] [address] [id number] [address] [place] [address], [place] [address] Aug, [facility] [address] [id number] [address] [place] [address], [place] [address] Aug, [facility] [address] [id number] [address] [place] [address], [place] [address] Aug, [facility] [address] [id number] [address] [place] [address], [place] [address] Aug, [facility] [address] [id number] [address] [place] [address], [place] [address] Jul, [facility] [address] [id number] [address] [place] [address], [place] [address] Jul, [facility] [address] [id number] [address] [place] [address], [place] [address] May, [facility] [address] [id number] [address] [place] [address], [place] [address] May, [facility] [address] [id number] [address] [place] [address], [place] [address] Apr, [facility] [address] [id number] [address] [place] [address], [place] [address] Apr, [facility] [address] [id number] [address] [place] [address], [place] [address] Mar, [facility] [address] [id number] [address] [place] [address], [place] [address] Mar, [facility] [address] [id number] [address] [place] [address], [place] [address] Mar, [facility] [address] [id number] [address] [place] [address], [place] [address] Mar, [facility] [address] [id number] [address] [place] [address], [place] [address] February, [facility] [address] [id number] [address] [place] [address], [place] [address] February, [facility] [address] [id number] [address] [place] [address], [place] [address] Jan, [facility] [address] [id number] [address] [place] [address], [place] [address] Jan, [facility] [address] [id number] [address] [place] [address], [place] [address] Oct, [facility] [address] [id number] [address] [place] [address], [place] [address] Oct, [facility] [address] [id number] [address] [place] [address], [place] [address] Oct, [facility] [address] [id number] [address] [place] [address], [place] [address] Oct, [facility] [address] [id number] [address] [place] [address], [place] [address] Oct, [facility] [address] [id number] [address] [place] [address], [place] [address] Oct, [facility] [address] [id number] [address] [place] [address], [place] [address] Oct, [facility] [address] [id number] [address] [place] [address], [place] [address] Oct, [facility] [address] [id number] [address] [place] [address], [place] [address] Oct, [facility] [address] [id number] [address] [place] [address], [place] [address] Dec, [facility] [address] [id number] [address] [place] [address], [place] [address] Sep, [facility] [address] [id number] [address] [place] [address], [place] [address] Sep, [facility] [address] [id number] [address] [place] [address], [place] [address] May, [facility] [address] [id number] [address] [place] [address], [place] [address] Apr, [facility] [address] [id number] [address] [place] [phone] Apr, [facility] [address] [id number] [address] [place] [phone] Apr, [facility] [address] [id number] [id number] February, [facility] [address] [id number] [address] [place] [phone] Jan, [facility] [address] [id number] [address] [place] [phone] Dec, [facility] [address] [id number] [address] [place] [address] Sep, [facility] [address] [id number] [address] [place] [phone] Sep, [facility] [address] [id number] [address] [place] [phone] Aug, [facility] [address] [id number] [address] [place] [phone] Aug, [facility] [address] [id number] [address] [place] [phone] Jul, [facility] [address] [id number] [address] [place] [phone] Mar, [facility] [address] [id number] [address] [place] [phone] Mar, [facility] [address] [id number] [address] [place] [id number] Mar, IMMUNIZATIONS No Known Immunizations SOCIAL HISTORY Never Assessed REASON FOR VISIT BH f/u-AB/MA, Anxiety / intellectual disability / history of anger/agitation PLAN OF CARE Activity Details Follow Up 4 Months Reason: VITAL SIGNS Height 68 in 2018-08-09 Weight 187.5 lbs 2018-08-09 Heart Rate 77 bpm 2018-08-09 Respiratory Rate 20 2018-08-09 BMI 28.51 kg/m2 2018-08-09 Blood pressure systolic 140 mmHg 2018-08-09 Blood pressure diastolic 86 mmHg 2018-08-09 MEDICATIONS Medication Instructions Dosage Frequency Start Date End Date Duration S patrick HydrOXYzine Pamoate 25 MG 1 capsule in the am, 2pm, and at bedtime Orally Active Risperidone 1 MG TAKE 1 TABLET ORALLY TWICE A DAY FOR ANGER/ AGGRESSION Active Travatan Z 0.004 % Ophthalmic Once a day 1 drop into affect ed eye in the evening 24h Active Atorvastatin Calcium 20 MG Orally Once a day 1 tablet 24h 31 Active Lisinopril 40 mg Orally Once a day 1 tablet 24h 31 Active Toprol XL 50 mg Orally 2 times a day 1 tablet 12h 29 Jun, 2015 31 Active RESULTS No Results PROCEDURES Procedure Date Ordered Result Body Site [facility] VISIT ESTABLISHED PATIENT Aug 09, 2018 INSTRUCTIONS MEDICATIONS ADMINISTERED No Known Medications MEDICAL (GENERAL) HISTORY Type Description Date Medical History hyperlipidemia Medical History hypertension Medical History mood disorder Medical History mild mental retardation Medical History insomnia Medical History anxiety Medical History Asperger's Surgical History laser eye surgery
--- OUTSIDE RECORDS SUMMARY | 2020-01-04 10:19 | XMS REPORT ---
Author Author Anton Coleman Doctor Organization [facility] Address Unknown Phone Unavailable Care Team Providers Care Speech Therapy Teacher Name Role Phone Migration, Doctor Unavailable Unavailable PROBLEMS Type Condition ICD9-CM Code PIQ46-QC Code Onset Dates Condition S tatus SNOMED Code Problem Essential hypertension I10 Active 56933751 Problem Urinary incontinence, unspecified type R32 Active 803245437 Problem Hyperglycemia R73.9 Active 400432 07 Problem Anxiety F41.9 Active 35091249 Problem Hyperlipidemia, unspecified hyperlipidemia E78.5 Active 14684737 Problem Nicotine abuse Z72.0 Active 98640 008 Problem Developmental disorder F89 Active [id number] ALLERGIES No Information ENCOUNTERS Encounter Location Date Diagnosis [facility] [address] [id number] [address] [place] [address] [id number] Dec, [facility] [address] [facility] [id number] [address] [place] [phone] Dec, [facility] [address] [facility] [id number] [address] [place] [phone] Nov, [facility] [address] [place] [id number] [address] [place] [phone] Nov, Essential hypertension I10 [facility] [address] [facility] [id number] [address] [place] [id number] Nov, Essential hypertension I10 [facility] [address] [facility] [id number] [address] [place] [id number] Nov, Developmental disorder F89 a nd Anxiety F41.9 [facility] [address] [facility] [id number] [address] [place] [id number] 14 Nov, 2018 [facility] [address] [facility] [id number] [address] [place] [phone] Nov, Essential hypertension I10 [facility] [address] [facility] [id number] [address] [place] [id number] 22 Oct, 2018 Elevated blood sugar R73.09 [facility] [address] [facility] [id number] [address] [place] [phone] Oct, Elevated blood sugar R73.09 [place] [address] [facility] [id number] [address] [place] [id number] 15 Oct, 2018 Encounter for Medicare annua l wellness exam Z00.00 ; Screening PSA (prostate specific antigen) Z12.5 ; Essential hypertension I10 ; Hyperlipidemia, unspecified hyperlipidemia E78.5 ; Nicotine abuse Z72.0 ; Anxiety F41.9 ; Bilateral impacted cerumen H61.23 and Developmental disorder F89 [place] [address] [address] [facility] [id number] [address] [place] [id number] 14 Oct, 2018 Encounter for Medicare annua l wellness exam Z00.00 ; Essential hypertension I10 ; Hyperlipidemia, unspecified hyperlipidemia E78.5 ; Nicotine abuse Z72.0 ; Anxiety F41.9 ; Developmental disorder F89 and Screening PSA (prostate specific antigen) Z12.5 [facility] [address] [id number] [address] [place] [address] [phone] Sep, Dental examination Z01.20 [place] [address] [address] [facility] [id number] [address] [place] [id number] 16 Jul, 2018 Developmental disorder F89 a nd Anxiety F41.9 [place] [address] [address] [facility] [id number] [address] [place] [phone] Jun, Essential hypertension I10 ; Nicotine abuse Z72.0 and Encounter for immunization Z23 [facility] [address] [id number] [address] [place] [address] [id number] Apr, Dental examination Z01.20 [facility] [address] [id number] [address] [place] [address] [id number] Jan, Dental examination Z01.20 [facility] [address] [id number] [address] [place] [id number] Dec, Developmental disorder F89 a nd Anxiety F41.9 [facility] [address] [facility] [id number] [address] [place] [id number] 14 Nov, 2017 Essential hypertension I10 ; Hyperlipidemia, unspecified hyperlipidemia E78.5 ; Nicotine abuse Z72.0 and Bilateral impacted cerumen H61.23 [facility] [address] [facility] [id number] [address] [place] [phone] Oct, [facility] [address] [facility] [id number] [place] [address] [phone] Sep, Encounter for dental exam an d cleaning w/o abnormal findings Z01.20 [facility] [address] [facility] [id number] [address] [place] [id number] 11 Sep, 2017 Medicare annual wellness vis it, initial Z00.00 and Encounter for immunization Z23 [facility] [address] [place] [id number] [address] [place] [phone] Aug, Encounter for immunization Z 23 ; Developmental disorder F89 and Anxiety F41.9 [facility] [id number] [place] [address] [id number] 13 Jun, 2017 Encounter for dental examina tion and cleaning without abnormal findings Z01.20 [facility] [address] [facility] [id number] [address] [place] [phone] Apr, Anxiety F41.9 and Developmen oscar disorder F89 [facility] [address] [facility] [id number] [address] [place] [id number] Apr, Essential hypertension I10 a nd Nicotine abuse Z72.0 [facility] [id number] [place] [address] [id number] Mar, Dental examination Z01.20 [facility] [address] [facility] [id number] [address] [place] [address] [id number] Mar, Encounter for dental examina tion and cleaning without abnormal findings Z01.20 [facility] [address] [facility] [id number] [address] [place] [phone] Jan, [facility] [id number] [place] [phone] 30 Dec, 2016 Developmental disorder F89 a nd Anxiety F41.9 [facility] [id number] [place] [address] [phone] Dec, Encounter for dental examina tion and cleaning without abnormal findings Z01.20 [facility] [id number] [place] [phone] 15 Sep, 2016 Encounter for immunization Z 23 [facility] [address] [place] [id number] [place] [phone] 08 Sep, 2016 Prostate cancer screening Z1 2.5 and Hyperlipidemia, unspecified hyperlipidemia E78.5 [place] [address] [phone] 06 Sep, 2016 Annual physical exam Z00.00 ; Encounter for immunization Z23 ; Essential hypertension I10 ; Hyperlipidemia, unspecified hyperlipidemia E78.5 ; Anxiety F41.9 ; Prostate cancer screening Z12.5 and Nicotine abuse Z72.0 [facility] [address] [place] [id number] [address] [place] [phone] Aug, [facility] [address] [place] [id number] [address] [place] [phone] Jul, Urinary incontinence, unspec ified type R32 [facility] [address] [facility] [id number] [address] [place] [address] [id number] Jul, Dental examination Z01.20 [facility] [id number] [place] [phone] Jul, Urinary incontinence, unspec ified type R32 [facility] [address] [place] [id number] [address] [place] [phone] Jul, Anxiety F41.9 and Developmen oscar disorder F89 [facility] [address] [facility] [id number] [address] [place] [address] [phone] May, Dental examination Z01.20 [place] [id number] [facility] [id number] [place] [address] [phone] Apr, Encounter for dental examination Z01.20 [facility] [address] [id number] [address] [place] [address] [id number] Apr, Encounter for dental examina tion and cleaning without abnormal findings Z01.20 [facility] [address] [facility] [id number] [address] [place] [phone] Mar, Developmental disorder F89 a nd Anxiety F41.9 [facility] [address] [id number] [address] [place] [address] [id number] February, Dental examination Z01.20 [facility] [address] [facility] [id number] [address] [place] [phone] February, Essential hypertension I10 [facility] [address] [facility] [id number] [address] [place] [phone] February, Arthralgia M25.50 [facility] [address] [id number] [address] [place] [address] [id number] Jan, Encounter for dental examina tion and cleaning without abnormal findings Z01.20 [facility] [address] [place] [id number] [address] [place] [phone] Dec, [facility] [address] [facility] [id number] [address] [place] [phone] Nov, Anxiety F41.9 and Developmen oscar disorder F89 [facility] [address] [facility] [id number] [address] [place] [phone] Nov, [facility] [address] [facility] [id number] [address] [place] [phone] Nov, [facility] [address] [place] [id number] [address] [place] [phone] Oct, Hyperlipidemia, unspecified hyperlipidemia E78.5 [facility] [address] [facility] [id number] [address] [place] [id number] Oct, Essential hypertension I10 ; Hyperlipidemia, unspecified hyperlipidemia E78.5 and Prostate cancer screening Z12.5 [facility] [address] [facility] [id number] [address] [place] [phone] Oct, Essential hypertension I10 ; Hyperlipidemia, unspecified hyperlipidemia E78.5 ; Nicotine abuse Z72.0 ; Anxiety F41.9 ; Developmental disorder F89 and Prostate cancer screening Z12.5 [facility] [address] [facility] [id number] [address] [place] [phone] Aug, Anxiety F41.9 and Developmen oscar disorder F89 [facility] [address] [facility] [id number] [address] [place] [phone] Aug, Essential hypertension I10 a nd Encounter for immunization Z23 [facility] [address] [facility] [id number] [address] [place] [phone] Aug, Prostate cancer screening Z1 2.5 [facility] [address] [place] [id number] [address] [place] [id number] Jun, Hypertension 401.9 [facility] [address] [place] [id number] [address] [place] [phone] Jun, [facility] [address] [address] May, Impulse control disorder, un specified 312.30 ; Generalized anxiety disorder 300.02 ; Other specified pervasive developmental disorders, 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 and 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 [facility] [address] [place] [id number] [address] [place] [phone] Mar, Hypertension 401.9 [facility] [address] [facility] [id number] [address] [place] [address] [id number] Mar, Dental examination V72.2 [facility] [address] [place] [id number] [address] [place] [phone] February, Hypertension 401.9 and Hyper lipidemia 272.4 [facility] [address] [place] [id number] [address] [place] [id number] February, [facility] [address] [place] [id number] [address] [place] [id number] 14 Feb, 2015 Generalized anxiety disorder 300.02 ; Impulse control disorder 312.30 ; 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 and Benign essential HTN 401.1 [facility] [address] [id number] [address] [place] [id number] 14 Jan, 2015 [facility] [address] [id number] [address] [place] [phone] 13 Jan, 2015 [facility] [address] [id number] [address] [place] [phone] 18 Dec, 2014 [facility] [address] [id number] [address] [place] [id number] 18 Dec, 2014 [facility] [address] [id number] [address] [place] [id number] 17 Dec, 2014 [facility] [address] [id number] [address] [place] [id number] 17 Dec, 2014 [facility] [address] [id number] [address] [place] [id number] 16 Dec, 2014 [facility] [address] [id number] [address] [place] [phone] Dec, [facility] [address] [id number] [address] [place] [phone] Dec, [facility] [address] [id number] [address] [place] [id number] Dec, [facility] [address] [id number] [address] [place] [phone] Nov, [facility] [address] [id number] [address] [place] [phone] Nov, [facility] [address] [id number] [address] [place] [phone] Nov, [facility] [address] [id number] [address] [place] [phone] Nov, [facility] [address] [id number] [address] [place] [address], [place] [phone] Nov, [facility] [address] [id number] [address] [place] [address], [place] [phone] Nov, [facility] [address] [id number] [address] [place] [address], [place] [address] Nov, [facility] [address] [id number] [address] [place] [address], [place] [address] Nov, [facility] [address] [id number] [address] [place] [address], [place] [id number] Oct, [facility] [address] [id number] [address] [place] [address], [place] [phone] Oct, [facility] [address] [id number] [address] [place] [address], [place] [phone] Oct, [facility] [address] [id number] [address] [place] [address], [place] [address] Oct, [facility] [address] [id number] [address] [place] [address], [place] [id number] Oct, [facility] [address] [id number] [address] [place] [address], [place] [id number] Oct, [facility] [address] [id number] [address] [place] [address], [place] [address] Sep, [facility] [address] [id number] [address] [place] [address], [place] [address] Sep, [facility] [address] [id number] [address] [place] [address], [place] [address] Sep, [facility] [address] [id number] [address] [place] [address], [place] [address] Sep, [facility] [address] [id number] [address] [place] [address], [place] [address] Sep, [facility] [address] [id number] [address] [place] [address] [place] [address] Sep, [facility] [address] [id number] [address] [place] [address], [place] [address] Aug, [facility] [address] [id number] [address] [place] [address], [place] [address] Aug, [facility] [address] [id number] [address] [place] [address], [place] [address] Aug, [facility] [address] [id number] [address] [place] [address], [place] [address] Aug, [facility] [address] [id number] [address] [place] [address], [place] [address] Jul, [facility] [address] [id number] [address] [place] [address], [place] [address] Jul, [facility] [address] [id number] [address] [place] [address], [place] [address] May, [facility] [address] [id number] [address] [place] [address], [place] [address] May, [facility] [address] [id number] [address] [place] [address], [place] [address] Apr, [facility] [address] [id number] [address] [place] [address], [place] [address] Apr, [facility] [address] [id number] [address] [place] [address], [place] [address] Mar, [facility] [address] [id number] [address] [place] [address], [place] [address] Mar, [facility] [address] [id number] [address] [place] [address], [place] [address] Mar, [facility] [address] [id number] [address] [place] [address], [place] [address] Mar, [facility] [address] [id number] [address] [place] [address], [place] [address] February, [facility] [address] [id number] [address] [place] [address], [place] [address] February, [facility] [address] [id number] [address] [place] [address], [place] [address] Jan, [facility] [address] [id number] [address] [place] [address], [place] [address] Jan, [facility] [address] [id number] [address] [place] [address], [place] [address] Oct, [facility] [address] [id number] [address] [place] [address], [place] [address] Oct, [facility] [address] [id number] [address] [place] [address], [place] [address] Oct, [facility] [address] [id number] [address] [place] [address], [place] [address] Oct, [facility] [address] [id number] [address] [place] [address], [place] [address] Oct, [facility] [address] [id number] [address] [place] [address], [place] [address] Oct, [facility] [address] [id number] [address] [place] [address], [place] [address] Oct, [facility] [address] [id number] [address] [place] [address], [place] [address] Oct, [facility] [address] [id number] [address] [place] [address], [place] [address] Oct, [facility] [address] [id number] [address] [place] [address], [place] [address] Dec, [facility] [address] [id number] [address] [place] [address], [place] [address] Sep, [facility] [address] [id number] [address] [place] [address], [place] [address] Sep, [facility] [address] [id number] [address] [place] [address], [place] [address] May, [facility] [address] [id number] [address] [place] [phone] Apr, [facility] [address] [id number] [address] [place] [id number] Apr, [facility] [address] [facility] [id number] [address] [place] [id number] Apr, [facility] [address] [id number] [place] [id number] February, [facility] [address] [id number] [address] [place] [id number] Jan, [facility] [address] [id number] [address] [place] [phone] Dec, [facility] [address] [facility] [id number] [address] [place] [id number] Sep, [facility] [address] [id number] [address] [place] [phone] Sep, [facility] [address] [id number] [address] [place] [id number] Aug, [facility] [address] [facility] [id number] [address] [place] [id number] Aug, [facility] [address] [id number] [address] [place] [id number] Jul, [facility] [address] [id number] [address] [place] [id number] Mar, [facility] [address] [id number] [address] [place] [id number] Mar, [facility] [address] [id number] [address] [place] [id number] Mar, IMMUNIZATIONS No Known Immunizations SOCIAL HISTORY Never Assessed REASON FOR VISIT EMR-[facility] [place]AN OF CARE VITAL SIGNS MEDICATIONS Unknown Medications RESULTS No Results PROCEDURES No Known procedures INSTRUCTIONS MEDICATIONS ADMINISTERED No Known Medications MEDICAL (GENERAL) HISTORY Type Description Date Medical History hyperlipidemia Medical History hypertension Medical History mood disorder Medical History mild mental retardation Medical History insomnia Medical History anxiety Medical History Asperger's Surgical History laser eye surgery
--- OUTSIDE RECORDS SUMMARY | 2020-01-04 10:19 | XMS REPORT ---
Author Author Anton Coleman Doctor Organization [facility] Address Unknown Phone Unavailable Care Team Providers Care Physician Practice Manager Name Role Phone Migration, Doctor Unavailable Unavailable PROBLEMS Type Condition ICD9-CM Code KXI14-GS Code Onset Dates Condition S tatus SNOMED Code Problem Essential hypertension I10 Active 79783788 Problem Urinary incontinence, unspecified type R32 Active 755636329 Problem Hyperglycemia R73.9 Active 308886 07 Problem Anxiety F41.9 Active 38446164 Problem Hyperlipidemia, unspecified hyperlipidemia E78.5 Active 74108240 Problem Nicotine abuse Z72.0 Active 50353 008 Problem Developmental disorder F89 Active 0783216 ALLERGIES No Information ENCOUNTERS Encounter Location Date Diagnosis [facility] [address] [facility] [id number] [address] [place] [phone] February, [facility] [address] [facility] [id number] [address] [place] [phone] February, Essential hypertension I10 a nd Impacted cerumen, bilateral H61.23 [facility] [address] [facility] [id number] [address] [place] [address] [id number] Dec, Oral health maintenance stat us requiring routine preventive dental care K08.9 [facility] [address] [facility] [id number] [address] [place] [phone] Dec, Developmental disorder F89 a nd Anxiety F41.9 [facility] [address] [facility] [id number] [address] [place] [phone] Nov, [facility] [address] [facility] [id number] [address] [place] [address] Nov, Essential hypertension I10 [facility] [address] [facility] [id number] [address] [place] [phone] Nov, Essential hypertension I10 [facility] [address] [facility] [id number] [address] [place] [phone] 19 Nov, 2018 Developmental disorder F89 a nd Anxiety F41.9 [facility] [address] [facility] [id number] [address] [place] [phone] 14 Nov, 2018 [facility] [address] [facility] [id number] [address] [place] [phone] 11 Nov, 2018 Essential hypertension I10 [facility] [address] [facility] [id number] [address] [place] [phone] Oct, Elevated blood sugar R73.09 [facility] [address] [facility] [id number] [address] [place] [phone] Oct, Elevated blood sugar R73.09 [place] [address] [facility] [id number] [address] [place] [phone] 15 Oct, 2018 Encounter for Medicare annua l wellness exam Z00.00 ; Screening PSA (prostate specific antigen) Z12.5 ; Essential hypertension I10 ; Hyperlipidemia, unspecified hyperlipidemia E78.5 ; Nicotine abuse Z72.0 ; Anxiety F41.9 ; Bilateral impacted cerumen H61.23 and Developmental disorder F89 [place] [address] [place] [id number] [address] [place] [phone] 14 Oct, 2018 Encounter for Medicare annua l wellness exam Z00.00 ; Essential hypertension I10 ; Hyperlipidemia, unspecified hyperlipidemia E78.5 ; Nicotine abuse Z72.0 ; Anxiety F41.9 ; Developmental disorder F89 and Screening PSA (prostate specific antigen) Z12.5 [facility] [address] [place] [id number] [address] [place] [address] [id number] Sep, Dental examination Z01.20 [facility] [address] [facility] [id number] [address] [place] [phone] 16 Jul, 2018 Developmental disorder F89 a nd Anxiety F41.9 [facility] [address] [facility] [id number] [address] [place] [phone] 26 Jun, 2018 Essential hypertension I10 ; Nicotine abuse Z72.0 and Encounter for immunization Z23 [facility] [address] [facility] [id number] [address] [place] [address] [id number] Apr, Dental examination Z01.20 [facility] [address] [facility] [id number] [address] [place] [address] [phone] Jan, Dental examination Z01.20 [facility] [address] [facility] [id number] [address] [place] [phone] Dec, Developmental disorder F89 a nd Anxiety F41.9 [facility] [address] [place] [id number] [address] [place] [phone] 14 Nov, 2017 Essential hypertension I10 ; Hyperlipidemia, unspecified hyperlipidemia E78.5 ; Nicotine abuse Z72.0 and Bilateral impacted cerumen H61.23 [facility] [address] [place] [id number] [address] [place] [phone] Oct, [facility] [address] [facility] [id number] [place] [address] [id number] Sep, Encounter for dental exam an d cleaning w/o abnormal findings Z01.20 [facility] [address] [place] [id number] [address] [place] [phone] 11 Sep, 2017 Medicare annual wellness vis it, initial Z00.00 and Encounter for immunization Z23 [facility] [address] [place] [id number] [address] [place] [phone] Aug, Encounter for immunization Z 23 ; Developmental disorder F89 and Anxiety F41.9 [facility] [address] [facility] [id number] [address] [place] [address] [id number] 13 Jun, 2017 Encounter for dental examina tion and cleaning without abnormal findings Z01.20 [facility] [address] [facility] [id number] [address] [place] [address] Apr, Anxiety F41.9 and Developmen oscar disorder F89 [facility] [address] [facility] [id number] [address] [place] [phone] 17 Apr, 2017 Essential hypertension I10 a nd Nicotine abuse Z72.0 [facility] [id number] [place] [address] [id number] Mar, Dental examination Z01.20 [facility] [address] [id number] [address] [place] [address] [id number] Mar, Encounter for dental examina tion and cleaning without abnormal findings Z01.20 [facility] [address] [facility] [id number] [address] [place] [phone] Jan, [facility] [address] [facility] [id number] [place] [phone] Dec, Developmental disorder F89 a nd Anxiety F41.9 [facility] [address] [facility] [id number] [address] [place] [address] [id number] Dec, Encounter for dental examina tion and cleaning without abnormal findings Z01.20 [place] [address] [place] [id number] [address] [place] [phone] Sep, Encounter for immunization Z 23 [place] [address] [place] [id number] [address] [place] [phone] 08 Sep, 2016 Prostate cancer screening Z1 2.5 and Hyperlipidemia, unspecified hyperlipidemia E78.5 [place] [address] [address] Sep, Annual physical exam Z00.00 ; Encounter for immunization Z23 ; Essential hypertension I10 ; Hyperlipidemia, unspecified hyperlipidemia E78.5 ; Anxiety F41.9 ; Prostate cancer screening Z12.5 and Nicotine abuse Z72.0 [place] [address] [place] [id number] [address] [place] [phone] Aug, [facility] [address] [facility] [id number] [address] [place] [phone] Jul, Urinary incontinence, unspec ified type R32 [facility] [address] [id number] [address] [place] [address] [id number] Jul, Dental examination Z01.20 [facility] [address] [facility] [id number] [address] [place] [phone] Jul, Urinary incontinence, unspec ified type R32 [facility] [address] [id number] [address] [place] [phone] Jul, Anxiety F41.9 and Developmen oscar disorder F89 [facility] [address] [id number] [address] [place] [address] [id number] May, Dental examination Z01.[id number] [place] [address] [id number] Apr, Encounter for dental examination Z01.20 [facility] [address] [id number] [address] [place] [address] [id number] Apr, Encounter for dental examina tion and cleaning without abnormal findings Z01.20 [facility] [address] [id number] [address] [place] [phone] Mar, Developmental disorder F89 a nd Anxiety F41.9 [facility] [address] [id number] [address] [place] [address] [id number] February, Dental examination Z01.20 [facility] [address] [id number] [address] [place] [address] February, Essential hypertension I10 [facility] [address] [id number] [address] [place] [phone] February, Arthralgia M25.50 [facility] [address] [id number] [address] [place] [address] [id number] Jan, Encounter for dental examina tion and cleaning without abnormal findings Z01.20 [facility] [address] [id number] [address] [place] [phone] Dec, [facility] [address] [id number] [address] [place] [phone] Nov, Anxiety F41.9 and Developmen oscar disorder F89 [facility] [address] [id number] [address] [place] [phone] Nov, [facility] [address] [place] [id number] [address] [place] [phone] 16 Nov, 2015 [facility] [address] [address] Oct, Hyperlipidemia, unspecified hyperlipidemia E78.5 [facility] [address] [place] [id number] [address] [place] [phone] 18 Oct, 2015 Essential hypertension I10 ; Hyperlipidemia, unspecified hyperlipidemia E78.5 and Prostate cancer screening Z12.5 [facility] [address] [address] Oct, Essential hypertension I10 ; Hyperlipidemia, unspecified hyperlipidemia E78.5 ; Nicotine abuse Z72.0 ; Anxiety F41.9 ; Developmental disorder F89 and Prostate cancer screening Z12.5 [facility] [address] [phone] Aug, Anxiety F41.9 and Developmen oscar disorder F89 [facility] [address] [phone] Aug, Essential hypertension I10 a nd Encounter for immunization Z23 [facility] [address] [id number] Aug, Prostate cancer screening Z1 2.5 [facility] [address] [place] [id number] [address] [place] [phone] 29 Jun, 2015 Hypertension 401.9 [facility] [address] [place] [id number] [address] [place] [phone] Jun, [facility] [address] [place] [id number] [address] [place] [phone] May, Impulse control disorder, un specified 312.30 ; Generalized anxiety disorder 300.02 ; Other specified pervasive developmental disorders, 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 and 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 [facility] [address] [place] [id number] [address] [place] [address] Mar, Hypertension 401.9 [facility] [id number] [place] [address] [id number] 15 Mar, 2015 Dental examination V72.2 [facility] [address] [id number] [address] [place] [phone] February, Hypertension 401.9 and Hyper lipidemia 272.4 [facility] [address] [id number] [address] [place] [phone] February, [facility] [address] [id number] [address] [place] [phone] February, Generalized anxiety disorder 300.02 ; Impulse control disorder 312.30 ; 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 and Benign essential HTN 401.1 [facility] [address] [id number] [address] [place] [phone] Jan, [facility] [address] [id number] [address] [place] [phone] Jan, [facility] [address] [id number] [address] [place] [phone] 18 Dec, 2014 [facility] [address] [id number] [address] [place] [phone] 18 Dec, 2014 [facility] [address] [id number] [address] [place] [phone] 17 Dec, 2014 [facility] [address] [id number] [address] [place] [phone] 17 Dec, 2014 [facility] [address] [id number] [address] [place] [phone] 16 Dec, 2014 [facility] [address] [id number] [address] [place] [phone] 16 Dec, 2014 [facility] [address] [id number] [address] [place] [id number] 09 Dec, 2014 [facility] [address] [id number] [address] [place] [phone] Dec, [facility] [address] [id number] [address] [place] [phone] Nov, [facility] [address] [id number] [address] [place] [address], [place] [address] Nov, [facility] [address] [id number] [address] [place] [address], [place] [address] Nov, [facility] [address] [id number] [address] [place] [address], [place] [address] Nov, [facility] [address] [id number] [address] [place] [address], [place] [address] Nov, 2014 [facility] [address] [id number] [address] [place] [address], [place] [address] Nov, [facility] [address] [id number] [address] [place] [address], [place] [address] Nov, [facility] [address] [id number] [address] [place] [address], [place] [address] Nov, [facility] [address] [id number] [address] [place] [address], [place] [address] Oct, [facility] [address] [id number] [address] [place] [address], [place] [address] Oct, [facility] [address] [id number] [address] [place] [address], [place] [address] Oct, [facility] [address] [id number] [address] [place] [address], [place] [address] Oct, [facility] [address] [id number] [address] [place] [phone] Oct, [facility] [address] [id number] [address] [place] [phone] Oct, [facility] [address] [id number] [address] [place] [address], [place] [address] Sep, [facility] [address] [id number] [address] [place] [address], [place] [address] Sep, [facility] [address] [id number] [address] [place] [address], [place] [address] Sep, [facility] [address] [id number] [address] [place] [address], [place] [address] Sep, [facility] [address] [id number] [address] [place] [address], [place] [address] Sep, [facility] [address] [id number] [address] [place] [address], [place] [address] Sep, [facility] [address] [id number] [address] [place] [address], [place] [address] Aug, [facility] [address] [id number] [address] [place] [address], [place] [address] Aug, [facility] [address] [id number] [address] [place] [address], [place] [address] Aug, [facility] [address] [id number] [address] [place] [address], [place] [address] Aug, [facility] [address] [id number] [address] [place] [address], [place] [address] Jul, [facility] [address] [id number] [address] [place] [address], [place] [address] Jul, [facility] [address] [id number] [address] [place] [address], [place] [address] May, [facility] [address] [id number] [address] [place] [address], [place] [address] May, [facility] [address] [id number] [address] [place] [address], [place] [address] Apr, [facility] [address] [id number] [address] [place] [address], [place] [address] Apr, [facility] [address] [id number] [address] [place] [address], [place] [address] Mar, [facility] [address] [id number] [address] [place] [address], [place] [address] Mar, [facility] [address] [id number] [address] [place] [address], [place] [address] Mar, [facility] [address] [id number] [address] [place] [address], [place] [address] Mar, [facility] [address] [id number] [address] [place] [address], [place] [address] February, [facility] [address] [id number] [address] [place] [address], [place] [address] February, [facility] [address] [id number] [address] [place] [address], [place] [address] Jan, [facility] [address] [id number] [address] [place] [address], [place] [address] Jan, [facility] [address] [id number] [address] [place] [address], [place] [address] Oct, [facility] [address] [id number] [address] [place] [address], [place] [address] Oct, [facility] [address] [id number] [address] [place] [address], [place] [address] Oct, [facility] [address] [id number] [address] [place] [address], [place] [address] Oct, [facility] [address] [id number] [address] [place] [address], [place] [address] Oct, [facility] [address] [id number] [address] [place] [address], [place] [address] Oct, [facility] [address] [id number] [address] [place] [address], [place] [address] Oct, [facility] [address] [id number] [address] [place] [address], [place] [address] Oct, [facility] [address] [id number] [address] [place] [address], [place] [address] Oct, [facility] [address] [id number] [address] [place] [address], [place] [address] 14 Dec, 2012 [facility] [address] [id number] [address] [place] [address], [place] [address] Sep, [facility] [address] [id number] [address] [place] [address], [place] [address] Sep, [facility] [address] [id number] [address] [place] [address], [place] [address] May, [facility] [address] [id number] [address] [place] [address], [place] [address] Apr, [facility] [address] [id number] [address] [place] [address], [place] [address] Apr, [facility] [address] [id number] [address] [place] [address], [place] [address] Apr, [facility] [address] [id number] [place] [id number] February, [facility] [address] [id number] [address] [place] [address], [place] [address] Jan, [facility] [address] [id number] [address] [place] [address], [place] [address] Dec, [facility] [address] [id number] [address] [place] [address], [place] [address] Sep, [facility] [address] [id number] [address] [place] [address], [place] [address] Sep, [facility] [address] [id number] [address] [place] [address], [place] [address] Aug, [facility] [address] [id number] [address] [place] [address], [place] [address] Aug, [facility] [address] [id number] [address] [place] [address], [place] [address] Jul, [facility] [address] [id number] [address] [place] [address], [place] [address] Mar, [facility] [address] [id number] [place] [address] 15 Mar, 2011 [facility] [address] [facility] [id number] [address] [address] 19 Mar, 2009 IMMUNIZATIONS No Known Immunizations SOCIAL HISTORY Never Assessed REASON FOR VISIT [place] [place] VITAL SIGNS MEDICATIONS Unknown Medications RESULTS No Results PROCEDURES No Known procedures INSTRUCTIONS MEDICATIONS ADMINISTERED No Known Medications MEDICAL (GENERAL) HISTORY Type Description Date Medical History hyperlipidemia Medical History hypertension Medical History mood disorder Medical History mild mental retardation Medical History insomnia Medical History anxiety Medical History Asperger's Surgical History laser eye surgery
--- OUTSIDE RECORDS SUMMARY | 2020-01-04 10:19 | XMS REPORT ---
Author Author Anton CHAVEZ [facility] Address [address] [place] [address] Care Team Providers Care Master Chef Name Role Phone SCOTTMIKEARIEL Unavailable PROBLEMS Type Condition ICD9-CM Code [id number] Code Onset Dates Condition S tatus SNOMED Code Problem Essential hypertension I10 Active 56968789 Problem Urinary incontinence, unspecified type R32 Active 803255696 Problem Hyperglycemia R73.9 Active 878932 07 Problem Anxiety F41.9 Active 37407209 Problem Hyperlipidemia, unspecified hyperlipidemia E78.5 Active 15479795 Problem Nicotine abuse Z72.0 Active 80470 008 Problem Developmental disorder F89 Active 2912838 ALLERGIES No Information ENCOUNTERS Encounter Location Date Diagnosis [facility] [address] [facility] [id number] [address] [place] [phone] February, [facility] [address] [facility] [id number] [address] [place] [phone] February, [facility] [address] [facility] [id number] [address] [place] [address] [id number] Dec, Oral health maintenance stat us requiring routine preventive dental care K08.9 [facility] [address] [facility] [id number] [address] [place] [phone] Dec, Developmental disorder F89 a nd Anxiety F41.9 [facility] [address] [facility] [id number] [address] [place] [phone] Nov, [facility] [address] [facility] [id number] [address] [place] [phone] Nov, Essential hypertension I10 [facility] [address] [facility] [id number] [address] [place] [phone] Nov, Essential hypertension I10 [facility] [address] [facility] [id number] [address] [place] [id number] 19 Nov, 2018 Developmental disorder F89 a nd Anxiety F41.9 [facility] [address] [facility] [id number] [address] [place] [id number] 14 Nov, 2018 [facility] [address] [facility] [id number] [address] [place] [phone] 11 Nov, 2018 Essential hypertension I10 [place] [address] [facility] [id number] [address] [place] [phone] Oct, Elevated blood sugar R73.09 [place] [address] [facility] [id number] [address] [place] [phone] Oct, Elevated blood sugar R73.09 [place] [address] [facility] [id number] [address] [place] [phone] 15 Oct, 2018 Encounter for Medicare annua l wellness exam Z00.00 ; Screening PSA (prostate specific antigen) Z12.5 ; Essential hypertension I10 ; Hyperlipidemia, unspecified hyperlipidemia E78.5 ; Nicotine abuse Z72.0 ; Anxiety F41.9 ; Bilateral impacted cerumen H61.23 and Developmental disorder F89 [place] [address] [place] [id number] [address] [place] [id number] 14 Oct, 2018 Encounter for Medicare annua l wellness exam Z00.00 ; Essential hypertension I10 ; Hyperlipidemia, unspecified hyperlipidemia E78.5 ; Nicotine abuse Z72.0 ; Anxiety F41.9 ; Developmental disorder F89 and Screening PSA (prostate specific antigen) Z12.5 [facility] [address] [facility] [id number] [address] [place] [address] [id number] 19 Sep, 2018 Dental examination Z01.20 [facility] [address] [facility] [id number] [address] [place] [phone] 16 Jul, 2018 Developmental disorder F89 a nd Anxiety F41.9 [facility] [address] [facility] [id number] [address] [place] [phone] 26 Jun, 2018 Essential hypertension I10 ; Nicotine abuse Z72.0 and Encounter for immunization Z23 [facility] [address] [id number] [address] [place] [address] [id number] Apr, Dental examination Z01.20 [facility] [address] [id number] [address] [place] [address] [id number] Jan, Dental examination Z01.20 [facility] [address] [facility] [id number] [address] [place] [phone] Dec, Developmental disorder F89 a nd Anxiety F41.9 [facility] [address] [facility] [id number] [address] [place] [phone] 14 Nov, 2017 Essential hypertension I10 ; Hyperlipidemia, unspecified hyperlipidemia E78.5 ; Nicotine abuse Z72.0 and Bilateral impacted cerumen H61.23 [facility] [address] [facility] [id number] [address] [place] [phone] Oct, [facility] [id number] [place] [phone] Sep, Encounter for dental exam an d cleaning w/o abnormal findings Z01.20 [facility] [id number] [place] [phone] 11 Sep, 2017 Medicare annual wellness vis it, initial Z00.00 and Encounter for immunization Z23 [facility] [address] [facility] [id number] [address] [place] [phone] Aug, Encounter for immunization Z 23 ; Developmental disorder F89 and Anxiety F41.9 [facility] [address] [facility] [id number] [address] [place] [address] [phone] Jun, Encounter for dental examina tion and cleaning without abnormal findings Z01.20 [facility] [address] [facility] [id number] [address] [place] [phone] Apr, Anxiety F41.9 and Developmen oscar disorder F89 [facility] [address] [facility] [id number] [address] [place] [phone] 17 Apr, 2017 Essential hypertension I10 a nd Nicotine abuse Z72.0 [facility] [id number] [id number] Mar, Dental examination Z01.20 [facility] [address] [place] [id number] [address] [place] [address] [id number] Mar, Encounter for dental examina tion and cleaning without abnormal findings Z01.20 [facility] [address] [place] [phone] Jan, [facility] [address] [phone] Dec, Developmental disorder F89 a nd Anxiety F41.9 [facility] [address] [place] [address] [id number] Dec, Encounter for dental examina tion and cleaning without abnormal findings Z01.20 [place] [address] [place] [id number] [address] [place] [phone] Sep, Encounter for immunization Z 23 [facility] [address] [place] [id number] [address] [place] [phone] 08 Sep, 2016 Prostate cancer screening Z1 2.5 and Hyperlipidemia, unspecified hyperlipidemia E78.5 [place] [id number] [address] [place] [phone] Sep, Annual physical exam Z00.00 ; Encounter for immunization Z23 ; Essential hypertension I10 ; Hyperlipidemia, unspecified hyperlipidemia E78.5 ; Anxiety F41.9 ; Prostate cancer screening Z12.5 and Nicotine abuse Z72.0 [facility] [address] [place] [id number] [address] [place] [phone] Aug, [facility] [address] [facility] [id number] [address] Jul, Urinary incontinence, unspec ified type R32 [facility] [address] [id number] [address] [place] [address] [id number] Jul, Dental examination Z01.20 [facility] [address] [place] [id number] [address] [place] [phone] Jul, Urinary incontinence, unspec ified type R32 [facility] [address] [id number] [address] [place] [phone] Jul, Anxiety F41.9 and Developmen oscar disorder F89 [facility] [address] [id number] [address] [place] [address] [id number] May, Dental examination Z01.[id number] [place] [address] [phone] Apr, Encounter for dental examination Z01.20 [facility] [id number] [place] [address] [id number] Apr, Encounter for dental examina tion and cleaning without abnormal findings Z01.20 [facility] [address] [id number] [address] [place] [phone] Mar, Developmental disorder F89 a nd Anxiety F41.9 [facility] [address] [id number] [address] [place] [address] [id number] February, Dental examination Z01.20 [facility] [address] [id number] [address] [place] [phone] February, Essential hypertension I10 [facility] [address] [id number] [address] [place] [address] February, Arthralgia M25.50 [facility] [address] [id number] [address] [place] [address] [phone] Jan, Encounter for dental examina tion and cleaning without abnormal findings Z01.20 [facility] [address] [facility] [id number] [address] [place] [phone] Dec, [facility] [address] [id number] [address] [place] [phone] Nov, Anxiety F41.9 and Developmen oscar disorder F89 [facility] [address] [facility] [id number] [address] [place] [phone] Nov, [facility] [address] [facility] [id number] [address] [place] [phone] 16 Nov, 2015 [facility] [address] [place] [id number] [address] [place] [phone] Oct, Hyperlipidemia, unspecified hyperlipidemia E78.5 [facility] [address] [facility] [id number] [address] [place] [phone] 18 Oct, 2015 Essential hypertension I10 ; Hyperlipidemia, unspecified hyperlipidemia E78.5 and Prostate cancer screening Z12.5 [facility] [address] [facility] [id number] [address] [place] [phone] 11 Oct, 2015 Essential hypertension I10 ; Hyperlipidemia, unspecified hyperlipidemia E78.5 ; Nicotine abuse Z72.0 ; Anxiety F41.9 ; Developmental disorder F89 and Prostate cancer screening Z12.5 [facility] [address] [place] [id number] [address] [place] [phone] Aug, Anxiety F41.9 and Developmen oscar disorder F89 [facility] [address] [place] [phone] Aug, Essential hypertension I10 a nd Encounter for immunization Z23 [facility] [address] [place] [id number] [address] [place] [phone] 04 Aug, 2015 Prostate cancer screening Z1 2.5 [facility] [address] [place] [id number] [address] [place] [phone] 29 Jun, 2015 Hypertension 401.9 [facility] [address] [place] [id number] [address] [place] [phone] Jun, [facility] [address] [place] [id number] [address] [place] [phone] May, Impulse control disorder, un specified 312.30 ; Generalized anxiety disorder 300.02 ; Other specified pervasive developmental disorders, 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 and 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 [facility] [address] [place] [id number] [address] [place] [phone] Mar, Hypertension 401.9 [facility] [address] [id number] [address] [place] [address] [id number] 15 Mar, 2015 Dental examination V72.2 [facility] [address] [id number] [address] [place] [phone] February, Hypertension 401.9 and Hyper lipidemia 272.4 [facility] [address] [id number] [address] [place] [phone] February, [facility] [address] [id number] [address] [place] [phone] February, Generalized anxiety disorder 300.02 ; Impulse control disorder 312.30 ; 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 and Benign essential HTN 401.1 [facility] [address] [id number] [address] [place] [phone] Jan, [facility] [address] [id number] [address] [place] [phone] Jan, [facility] [address] [id number] [address] [place] [phone] 18 Dec, 2014 [facility] [address] [id number] [address] [place] [phone] 18 Dec, 2014 [facility] [address] [id number] [address] [place] [phone] 17 Dec, 2014 [facility] [address] [id number] [address] [place] [phone] 17 Dec, 2014 [facility] [address] [id number] [address] [place] [phone] 16 Dec, 2014 [facility] [address] [id number] [address] [place] [phone] 16 Dec, 2014 [facility] [address] [id number] [address] [place] [phone] 09 Dec, 2014 [facility] [address] [id number] [address] [place] [id number] 09 Dec, 2014 [facility] [address] [id number] [address] [place] [phone] Nov, 2014 [facility] [address] [id number] [address] [place] [address], [place] [address] Nov, 2014 [facility] [address] [id number] [address] [place] [address], [place] [address] Nov, 2014 [facility] [address] [id number] [address] [place] [address], [place] [address] Nov, 2014 [facility] [address] [id number] [address] [place] [address], [place] [address] Nov, 2014 [facility] [address] [id number] [address] [place] [address], [place] [address] Nov, 2014 [facility] [address] [id number] [address] [place] [address], [place] [address] Nov, 2014 [facility] [address] [id number] [address] [place] [address], [place] [address] Nov, [facility] [address] [id number] [address] [place] [phone] Oct, [facility] [address] [id number] [address] [place] [address], [place] [address] Oct, [facility] [address] [id number] [address] [place] [phone] Oct, [facility] [address] [id number] [address] [place] [address], [place] [address] Oct, [facility] [address] [id number] [address] [place] [phone] Oct, [facility] [address] [id number] [address] [place] [phone] Oct, [facility] [address] [id number] [address] [place] [address], [place] [address] Sep, [facility] [address] [id number] [address] [place] [phone] Sep, [facility] [address] [id number] [address] [place] [address], [place] [address] Sep, [facility] [address] [id number] [address] [place] [address], [place] [address] Sep, [facility] [address] [id number] [address] [place] [address], [place] [address] Sep, [facility] [address] [id number] [address] [place] [address], [place] [address] Sep, [facility] [address] [id number] [address] [place] [address], [place] [address] Aug, [facility] [address] [id number] [address] [place] [address], [place] [address] Aug, [facility] [address] [id number] [address] [place] [address], [place] [address] Aug, [facility] [address] [id number] [address] [place] [address], [place] [address] Aug, [facility] [address] [id number] [address] [place] [address], [place] [address] Jul, [facility] [address] [id number] [address] [place] [address], [place] [address] Jul, [facility] [address] [id number] [address] [place] [address], [place] [address] May, [facility] [address] [id number] [address] [place] [phone] May, [facility] [address] [id number] [address] [place] [address], [place] [address] Apr, [facility] [address] [id number] [address] [place] [address], [place] [address] Apr, [facility] [address] [id number] [address] [place] [address], [place] [address] Mar, [facility] [address] [id number] [address] [place] [phone] Mar, [facility] [address] [id number] [address] [place] [address], [place] [address] Mar, [facility] [address] [id number] [address] [place] [address], [place] [address] Mar, [facility] [address] [id number] [address] [place] [address], [place] [address] February, [facility] [address] [id number] [address] [place] [address], [place] [address] February, [facility] [address] [id number] [address] [place] [address], [place] [address] Jan, [facility] [address] [id number] [address] [place] [address], [place] [address] Jan, [facility] [address] [id number] [address] [place] [address], [place] [address] Oct, [facility] [address] [id number] [address] [place] [address], [place] [address] Oct, [facility] [address] [id number] [address] [place] [address], [place] [address] Oct, [facility] [address] [id number] [address] [place] [address], [place] [address] Oct, [facility] [address] [id number] [address] [place] [address], [place] [address] Oct, [facility] [address] [id number] [address] [place] [address], [place] [address] Oct, [facility] [address] [id number] [address] [place] [address], [place] [address] Oct, [facility] [address] [id number] [address] [place] [address], [place] [address] Oct, [facility] [address] [id number] [address] [place] [address], [place] [address] Oct, [facility] [address] [id number] [address] [place] [address], [place] [address] Dec, [facility] [address] [id number] [address] [place] [address], [place] [address] Sep, [facility] [address] [id number] [address] [place] [address], [place] [address] Sep, [facility] [address] [id number] [address] [place] [address], [place] [address] May, [facility] [address] [id number] [address] [place] [address], [place] [address] Apr, [facility] [address] [id number] [address] [place] [address], [place] [address] Apr, [facility] [address] [id number] [address] [place] [address], [place] [address] Apr, [facility] [id number] [place] [address] [id number] February, [facility] [address] [id number] [address] [place] [address], [place] [address] Jan, [facility] [address] [id number] [address] [place] [address], [place] [address] Dec, [facility] [address] [id number] [address] [place] [address], [place] [address] Sep, [facility] [address] [id number] [address] [place] [address], [place] [address] Sep, [facility] [address] [id number] [address] [place] [address], [place] [address] Aug, [facility] [address] [id number] [address] [place] [address], [place] [address] Aug, [facility] [address] [id number] [address] [place] [address], [place] [address] Jul, [facility] [address] [id number] [address] [place] [address], [place] [address] Mar, [facility] [address] [facility] [id number] [address] [place] [phone] Mar, [facility] [address] [facility] [id number] [address] [place] [phone] Mar, IMMUNIZATIONS No Known Immunizations SOCIAL HISTORY Never Assessed REASON FOR VISIT f/u- jerel ma, AIMS , Mood / ID PLAN OF CARE Activity Details Follow Up 3 Months Reason: VITAL SIGNS Height 68 in 2018-12-13 Weight 189.8 lbs 2018-12-13 Heart Rate 91 bpm 2018-12-13 Respiratory Rate 20 2018-12-13 BMI 28.86 kg/m2 2018-12-13 Blood pressure systolic 174 mmHg 2018-12-13 Blood pressure diastolic 96 mmHg 2018-12-13 MEDICATIONS Medication Instructions Dosage Frequency Start Date End Date Duration S dagmarus Lisinopril 40 mg Orally Once a day 1 tablet 24h 31 Active Metoprolol Succinate ER 50 MG Orally 2 times a day 1 tablet 12h Nov, 31 days Active Atorvastatin Calcium 20 MG Orally Once a day 1 tablet 24h 31 Active HydrOXYzine Pamoate 25 MG 1 capsule in the am, 2pm, and at bedtime Orally Active Risperidone 0.5 MG Orally 2 times a day 1 tablet 12h 30 Active Travatan Z 0.004 % Ophthalmic Once a day 1 drop into affect ed eye in the evening 24h Active RESULTS No Results PROCEDURES No Known procedures INSTRUCTIONS MEDICATIONS ADMINISTERED No Known Medications MEDICAL (GENERAL) HISTORY Type Description Date Medical History hyperlipidemia Medical History hypertension Medical History mood disorder Medical History mild mental retardation Medical History insomnia Medical History anxiety Medical History Asperger's Surgical History laser eye surgery
--- OUTSIDE RECORDS SUMMARY | 2020-01-04 10:20 | XMS REPORT ---
Author Author Anton SWANN [facility] Address [address] [place] [address] Phone Unavailable Care Team Providers Care Private Household Worker Name Role Phone MIKE SWANN Unavailable Unavailable PROBLEMS Type Condition ICD9-CM Code [id number] Code Onset Dates Condition S tatus SNOMED Code Problem Urinary incontinence, unspecified type R32 Active 477996850 Problem Developmental disorder F89 Active 4706436 Problem Nicotine abuse Z72.0 Active 91705 008 Problem Hyperlipidemia, unspecified hyperlipidemia E78.5 Active 34805568 Problem Anxiety F41.9 Active 77480063 Problem Essential hypertension I10 Active [id number] ALLERGIES No Known Allergies ENCOUNTERS Encounter Location Date Diagnosis [facility] [address] [id number] Jun, [facility] [address] [id number] Apr, Dental examination Z01.20 [facility] [address] [id number] Jan, Dental examination Z01.20 [facility] [address] [address] Dec, Developmental disorder F89 a nd Anxiety F41.9 [facility] [address] [id number] 14 Nov, 2017 Essential hypertension I10 ; Hyperlipidemia, unspecified hyperlipidemia E78.5 ; Nicotine abuse Z72.0 and Bilateral impacted cerumen H61.23 [facility] [address] [address] Oct, [facility] [address] [id number] Sep, Encounter for dental exam an d cleaning w/o abnormal findings Z01.20 [facility] [address] [id number] [address] [place] [phone] 11 Sep, 2017 Medicare annual wellness vis it, initial Z00.00 and Encounter for immunization Z23 [facility] [address] [id number] [address] [place] [phone] 28 Aug, 2017 Encounter for immunization Z 23 ; Developmental disorder F89 and Anxiety F41.9 [facility] [address] [id number] [address] [place] [id number] 13 Jun, 2017 Encounter for dental examina tion and cleaning without abnormal findings Z01.20 [facility] [address] [id number] [address] [place] [phone] 27 Apr, 2017 Anxiety F41.9 and Developmen oscar disorder F89 [facility] [address] [id number] [address] [place] [phone] 17 Apr, 2017 Essential hypertension I10 a nd Nicotine abuse Z72.[id number] [place] [id number] Mar, Dental examination Z01.20 [facility] [address] [id number] [address] [place] [id number] Mar, Encounter for dental examina tion and cleaning without abnormal findings Z01.20 [facility] [address] [id number] [address] [place] [phone] 05 Jan, 2017 [facility] [address] [id number] [address] [place] [phone] Dec, Developmental disorder F89 a nd Anxiety F41.9 [facility] [address] [id number] [address] [place] [id number] 15 Dec, 2016 Encounter for dental examina tion and cleaning without abnormal findings Z01.20 [facility] [address] [id number] [address] [place] [phone] 15 Sep, 2016 Encounter for immunization Z 23 [facility] [address] [id number] [address] [place] [phone] 08 Sep, 2016 Prostate cancer screening Z1 2.5 and Hyperlipidemia, unspecified hyperlipidemia E78.[address] [address] Sep, Annual physical exam Z00.00 ; Encounter for immunization Z23 ; Essential hypertension I10 ; Hyperlipidemia, unspecified hyperlipidemia E78.5 ; Anxiety F41.9 ; Prostate cancer screening Z12.5 and Nicotine abuse Z72.0 [address] [id number] [address] [place] [phone] Aug, [place] [id number] [place] [phone] Jul, Urinary incontinence, unspec ified type R32 [facility] [id number] [place] [address] [id number] Jul, Dental examination Z01.[address] [phone] Jul, Urinary incontinence, unspec ified type R32 [facility] [address] [id number] [address] [place] [address] Jul, Anxiety F41.9 and Developmen oscar disorder F89 [facility] [address] [id number] [address] [place] [address] [phone] May, Dental examination Z01.[id number] [place] [address] [id number] Apr, Encounter for dental examination Z01.20 [facility] [address] [id number] [address] [place] [address] [id number] Apr, Encounter for dental examina tion and cleaning without abnormal findings Z01.20 [facility] [address] [id number] [address] [place] [phone] Mar, Developmental disorder F89 a nd Anxiety F41.9 [facility] [id number] [place] [address] [id number] February, Dental examination Z01.20 [facility] [address] [facility] [id number] [address] [place] [address] February, Essential hypertension I10 [facility] [address] [facility] [id number] [address] [place] [phone] 02 Feb, 2016 Arthralgia M25.50 [facility] [address] [id number] [address] [place] [address] [id number] Jan, Encounter for dental examina tion and cleaning without abnormal findings Z01.20 [facility] [address] [facility] [id number] [address] [place] [phone] Dec, [facility] [address] [id number] [address] [place] [phone] Nov, Anxiety F41.9 and Developmen oscar disorder F89 [address] [address] [id number] 17 Nov, 2015 [facility] [address] [id number] [address] [place] [phone] Nov, [facility] [address] [address] Oct, Hyperlipidemia, unspecified hyperlipidemia E78.5 [facility] [address] [id number] [address] [place] [phone] Oct, Essential hypertension I10 ; Hyperlipidemia, unspecified hyperlipidemia E78.5 and Prostate cancer screening Z12.5 [facility] [address] [id number] [address] [place] [address] Oct, Essential hypertension I10 ; Hyperlipidemia, unspecified hyperlipidemia E78.5 ; Nicotine abuse Z72.0 ; Anxiety F41.9 ; Developmental disorder F89 and Prostate cancer screening Z12.5 [facility] [address] [facility] [id number] [address] [place] [phone] Aug, Anxiety F41.9 and Developmen oscar disorder F89 [facility] [address] [id number] [address] [place] [phone] 17 Aug, 2015 Encounter for immunization Z 23 and Essential hypertension I10 [facility] [address] [facility] [id number] [address] [place] [phone] 04 Aug, 2015 Prostate cancer screening Z1 2.5 [facility] [address] [facility] [id number] [address] [place] [phone] 29 Jun, 2015 Hypertension 401.9 [facility] [address] [id number] [address] [place] [phone] 18 Jun, 2015 [facility] [address] [id number] [address] [place] [phone] May, Impulse control disorder, un specified 312.30 ; Generalized anxiety disorder 300.02 ; Other specified pervasive developmental disorders, 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 and 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 [facility] [address] [id number] [address] [place] [phone] Mar, Hypertension 401.9 [facility] [address] [id number] [address] [place] [address] [id number] 15 Mar, 2015 Dental examination V72.2 [facility] [address] [id number] [address] [place] [phone] February, Hypertension 401.9 and Hyper lipidemia 272.4 [facility] [address] [id number] [address] [place] [phone] February, [facility] [address] [id number] [address] [place] [address] February, Generalized anxiety disorder 300.02 ; Impulse control disorder 312.30 ; 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 and Benign essential HTN 401.1 [facility] [address] [id number] [address] [place] [phone] Jan, [facility] [address] [id number] [address] [place] [phone] Jan, [facility] [address] [id number] [address] [place] [phone] Dec, [facility] [address] [id number] [address] [place] [address], [place] [address] 18 Dec, 2014 [facility] [address] [id number] [address] [place] [address], [place] [address] 17 Dec, 2014 [facility] [address] [id number] [address] [place] [address], [place] [address] 17 Dec, 2014 [facility] [address] [id number] [address] [place] [address], [place] [address] 16 Dec, 2014 [facility] [address] [id number] [address] [place] [address], [place] [address] 16 Dec, 2014 [facility] [address] [id number] [address] [place] [address], [place] [address] 09 Dec, 2014 [facility] [address] [id number] [address] [place] [address], [place] [address] 09 Dec, 2014 [facility] [address] [id number] [address] [place] [address], [place] [address] 20 Nov, 2014 [facility] [address] [id number] [address] [place] [address], [place] [address] 20 Nov, 2014 [facility] [address] [id number] [address] [place] [address], [place] [address] 19 Nov, 2014 [facility] [address] [id number] [address] [place] [address], [place] [address] 19 Nov, 2014 [facility] [address] [id number] [address] [place] [address], [place] [address] 18 Nov, 2014 [facility] [address] [id number] [address] [place] [address], [place] [address] 18 Nov, 2014 [facility] [address] [id number] [address] [place] [address], [place] [address] 17 Nov, 2014 [facility] [address] [id number] [address] [place] [address], [place] [address] 17 Nov, 2014 [facility] [address] [id number] [address] [place] [address], [place] [address] 15 Oct, 2014 [facility] [address] [id number] [address] [place] [address], [place] [address] Oct, [facility] [address] [id number] [address] [place] [address], [place] [address] Oct, [facility] [address] [id number] [address] [place] [address], [place] [address] Oct, [facility] [address] [id number] [address] [place] [address], [place] [address] Oct, [facility] [address] [id number] [address] [place] [address], [place] [address] Oct, [facility] [address] [id number] [address] [place] [address], [place] [address] Sep, [facility] [address] [id number] [address] [place] [address], [place] [address] Sep, [facility] [address] [id number] [address] [place] [address], [place] [address] Sep, [facility] [address] [id number] [address] [place] [address], [place] [address] Sep, [facility] [address] [id number] [address] [place] [address], [place] [address] Sep, [facility] [address] [id number] [address] [place] [address], [place] [address] Sep, [facility] [address] [id number] [address] [place] [address], [place] [address] Aug, [facility] [address] [id number] [address] [place] [address], [place] [address] Aug, [facility] [address] [id number] [address] [place] [address], [place] [address] Aug, [facility] [address] [id number] [address] [place] [address], [place] [address] Aug, [facility] [address] [id number] [address] [place] [address], [place] [address] Jul, [facility] [address] [id number] [address] [place] [address], [place] [address] Jul, [facility] [address] [id number] [address] [place] [address], [place] [address] May, [facility] [address] [id number] [address] [place] [address], [place] [address] May, [facility] [address] [id number] [address] [place] [address], [place] [address] Apr, [facility] [address] [id number] [address] [place] [address], [place] [address] Apr, [facility] [address] [id number] [address] [place] [address], [place] [address] Mar, [facility] [address] [id number] [address] [place] [address], [place] [address] Mar, [facility] [address] [id number] [address] [place] [address], [place] [address] Mar, [facility] [address] [id number] [address] [place] [address], [place] [address] Mar, [facility] [address] [id number] [address] [place] [address], [place] [address] February, [facility] [address] [id number] [address] [place] [address], [place] [address] February, [facility] [address] [id number] [address] [place] [address], [place] [address] Jan, [facility] [address] [id number] [address] [place] [address], [place] [address] Jan, [facility] [address] [id number] [address] [place] [address], [place] [address] Oct, [facility] [address] [id number] [address] [place] [address], [place] [address] Oct, [facility] [address] [id number] [address] [place] [address], [place] [address] Oct, [facility] [address] [id number] [address] [place] [address], [place] [address] Oct, [facility] [address] [id number] [address] [place] [address], [place] [address] Oct, [facility] [address] [id number] [address] [place] [address], [place] [address] Oct, [facility] [address] [id number] [address] [place] [address], [place] [address] Oct, [facility] [address] [id number] [address] [place] [address], [place] [address] Oct, [facility] [address] [id number] [address] [place] [address], [place] [address] Oct, [facility] [address] [id number] [address] [place] [address], [place] [address] Dec, [facility] [address] [id number] [address] [place] [address], [place] [address] Sep, [facility] [address] [id number] [address] [place] [address], [place] [address] Sep, [facility] [address] [id number] [address] [place] [address], [place] [address] May, [facility] [address] [id number] [address] [place] [address], [place] [address] Apr, [facility] [address] [id number] [address] [place] [address], [place] [address] Apr, [facility] [address] [id number] [address] [place] [address], [place] [address] Apr, [facility] [address] [id number] [place] [id number] February, [facility] [address] [id number] [address] [place] [address] Jan, [facility] [address] [id number] [address] [place] [address] Dec, [facility] [address] [id number] [address] [place] [address] Sep, [facility] [address] [id number] [address] [place] [address] Sep, [facility] [address] [id number] [address] [place] [address] Aug, [facility] [address] [id number] [address] [place] [address] Aug, [facility] [address] [id number] [address] [place] [address] Jul, [facility] [address] [id number] [address] [place] [address] Mar, [facility] [address] [id number] [address] [place] [address] Mar, [facility] [address] [id number] [address] [place] [address] Mar, IMMUNIZATIONS No Known Immunizations SOCIAL HISTORY Never Assessed REASON FOR VISIT ADULT OUTREACH [facility] PLAN OF CARE Activity Details Follow Up 3 Months Reason:ON SITE RECA LL VITAL SIGNS MEDICATIONS Medication Instructions Dosage Frequency Start Date End Date Duration S patrick Travatan Z 0.004 % Ophthalmic Once a day 1 drop into affect ed eye in the evening 24h Active Risperidone 1 MG TAKE 1 TABLET ORALLY TWICE A DAY FOR ANGER/ AGGRESSION 31 Active Toprol XL 50 mg Orally 2 times a day 1 tablet 12h 29 Jun, 2015 31 Active Lisinopril 40 mg Orally Once a day 1 tablet 24h 31 Active HydrOXYzine Pamoate 25 MG 1 capsule in the am, 2pm, and at bedtime Orally Active Atorvastatin Calcium 20 MG Orally Once a day 1 tablet 24h 31 Active RESULTS No Results PROCEDURES Procedure Date Ordered Result Body Site PROPHYLAXIS - ADULT February 17, 2018 TOPICAL FLUORIDE VARNISH February 17, 2018 INSTRUCTIONS MEDICATIONS ADMINISTERED No Known Medications MEDICAL (GENERAL) HISTORY Type Description Date Medical History hyperlipidemia Medical History hypertension Medical History mood disorder Medical History mild mental retardation Medical History insomnia Medical History anxiety Medical History Asperger's Surgical History laser eye surgery
--- OUTSIDE RECORDS SUMMARY | 2020-01-04 10:20 | XMS REPORT ---
Author Author Anton CHAVEZ Organization [facility] Address [address] [place] [address] Care Team Providers Care Lead Portfolio Manager Name Role Phone SCOTTMIKEARIEL Unavailable PROBLEMS Type Condition ICD9-CM Code JMP43-MS Code Onset Dates Condition S tatus SNOMED Code Problem Urinary incontinence, unspecified type R32 Active 120069758 Problem Developmental disorder F89 Active 6224277 Problem Nicotine abuse Z72.0 Active 52748 008 Problem Hyperlipidemia, unspecified hyperlipidemia E78.5 Active 36232410 Problem Anxiety F41.9 Active 23469334 Problem Essential hypertension I10 Active 92110964 ALLERGIES No Information ENCOUNTERS Encounter Location Date Diagnosis [facility] [address] [phone] Jun, [facility] [address] [id number] Apr, Dental examination Z01.20 [facility] [address] [id number] Jan, Dental examination Z01.20 [facility] [id number] [place] [phone] Dec, Developmental disorder F89 a nd Anxiety F41.9 [facility] [address] [id number] [address] [place] [phone] Nov, Essential hypertension I10 ; Hyperlipidemia, unspecified hyperlipidemia E78.5 ; Nicotine abuse Z72.0 and Bilateral impacted cerumen H61.23 [facility] [address] [id number] [address] [place] [phone] Oct, [facility] [id number] [place] [id number] Sep, Encounter for dental exam an d cleaning w/o abnormal findings Z01.20 [facility] [address] [id number] [address] [place] [id number] 11 Sep, 2017 Medicare annual wellness vis it, initial Z00.00 and Encounter for immunization Z23 [facility] [address] [id number] [address] [place] [phone] 28 Aug, 2017 Encounter for immunization Z 23 ; Developmental disorder F89 and Anxiety F41.9 [facility] [address] [id number] [address] [place] [id number] 13 Jun, 2017 Encounter for dental examina tion and cleaning without abnormal findings Z01.20 [facility] [address] [id number] [address] [place] [phone] Apr, Anxiety F41.9 and Developmen oscar disorder F89 [facility] [address] [facility] [id number] [address] [place] [phone] Apr, Essential hypertension I10 a nd Nicotine abuse Z72.[id number] [place] [address] [id number] Mar, Dental examination Z01.20 [facility] [address] [id number] [address] [place] [address] [id number] Mar, Encounter for dental examina tion and cleaning without abnormal findings Z01.20 [facility] [address] [id number] [address] [place] [phone] Jan, [facility] [address] [id number] [address] [place] [phone] 30 Dec, 2016 Developmental disorder F89 a nd Anxiety F41.9 [facility] [address] [id number] [address] [place] [address] [id number] Dec, Encounter for dental examina tion and cleaning without abnormal findings Z01.20 [facility] [address] [id number] [address] [place] [phone] Sep, Encounter for immunization Z 23 [facility] [address] [id number] [address] [place] [phone] 08 Sep, 2016 Prostate cancer screening Z1 2.5 and Hyperlipidemia, unspecified hyperlipidemia E78.5 [facility] [address] [id number] 06 Sep, 2016 Annual physical exam Z00.00 ; Encounter for immunization Z23 ; Essential hypertension I10 ; Hyperlipidemia, unspecified hyperlipidemia E78.5 ; Anxiety F41.9 ; Prostate cancer screening Z12.5 and Nicotine abuse Z72.0 [facility] [address] [phone] Aug, [place] [address] [id number] Jul, Urinary incontinence, unspec ified type R32 [facility] [id number] [place] [address] [phone] Jul, Dental examination Z01.20 [facility] [address] [phone] Jul, Urinary incontinence, unspec ified type R32 [facility] [address] [phone] Jul, Anxiety F41.9 and Developmen oscar disorder F89 [facility] [id number] [place] [id number] May, Dental examination Z01.[id number] [place] [address] [id number] Apr, Encounter for dental examination Z01.20 [facility] [id number] [place] [address] [phone] Apr, Encounter for dental examina tion and cleaning without abnormal findings Z01.20 [facility] [address] [facility] [id number] [address] [place] [phone] Mar, Developmental disorder F89 a nd Anxiety F41.9 [facility] [address] [id number] [address] [place] [address] [id number] February, Dental examination Z01.20 [facility] [address] [facility] [id number] [address] [place] [phone] February, Essential hypertension I10 [facility] [address] [facility] [id number] [address] [place] [phone] February, Arthralgia M25.50 [facility] [address] [facility] [id number] [address] [place] [address] [id number] Jan, Encounter for dental examina tion and cleaning without abnormal findings Z01.20 [facility] [address] [facility] [id number] [address] [place] [phone] Dec, [facility] [address] [id number] [address] [place] [phone] Nov, Anxiety F41.9 and Developmen oscar disorder F89 [facility] [address] [id number] [address] [place] [phone] 17 Nov, 2015 [facility] [address] [facility] [id number] [address] [place] [id number] Nov, [facility] [address] [id number] [address] [place] [phone] Oct, Hyperlipidemia, unspecified hyperlipidemia E78.5 [facility] [address] [id number] [address] [place] [phone] Oct, Essential hypertension I10 ; Hyperlipidemia, unspecified hyperlipidemia E78.5 and Prostate cancer screening Z12.5 [facility] [address] [facility] [id number] [address] [place] [phone] Oct, Essential hypertension I10 ; Hyperlipidemia, unspecified hyperlipidemia E78.5 ; Nicotine abuse Z72.0 ; Anxiety F41.9 ; Developmental disorder F89 and Prostate cancer screening Z12.5 [facility] [address] [facility] [id number] [address] [place] [phone] Aug, Anxiety F41.9 and Developmen oscar disorder F89 [facility] [address] [id number] [address] [place] [phone] 17 Aug, 2015 Essential hypertension I10 a nd Encounter for immunization Z23 [facility] [id number] [place] [phone] 04 Aug, 2015 Prostate cancer screening Z1 2.5 [facility] [address] [id number] [address] [place] [phone] 29 Jun, 2015 Hypertension 401.9 [facility] [address] [id number] [address] [place] [phone] 18 Jun, 2015 [facility] [id number] [place] [phone] May, Impulse control disorder, un specified 312.30 ; Generalized anxiety disorder 300.02 ; Other specified pervasive developmental disorders, 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 [id number] [address] [place] [address] [id number] Mar, Dental examination V72.2 [facility] [address] [id number] [address] [place] [phone] February, Hypertension 401.9 and Hyper lipidemia 272.4 [facility] [address] [id number] [address] [place] [phone] February, [facility] [address] [id number] [address] [place] [phone] February, Generalized anxiety disorder 300.02 ; Impulse control disorder 312.30 ; 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 and Benign essential HTN 401.1 [facility] [address] [id number] [address] [place] [phone] Jan, [facility] [address] [id number] [address] [place] [phone] Jan, [facility] [address] [id number] [address] [place] [phone] 18 Dec, 2014 [facility] [address] [id number] [address] [place] [address], [place] [id number] 18 Dec, 2014 [facility] [address] [id number] [address] [place] [phone] Dec, [facility] [address] [id number] [address] [place] [address], [place] [id number] 17 Dec, 2014 [facility] [address] [id number] [address] [place] [phone] 16 Dec, 2014 [facility] [address] [id number] [address] [place] [address], [place] [address] 16 Dec, 2014 [facility] [address] [id number] [address] [place] [phone] Dec, [facility] [address] [id number] [address] [place] [phone] Dec, [facility] [address] [id number] [address] [place] [phone] 20 Nov, 2014 [facility] [address] [id number] [address] [place] [phone] Nov, 2014 [facility] [address] [id number] [address] [place] [phone] Nov, 2014 [facility] [address] [id number] [address] [place] [phone] Nov, 2014 [facility] [address] [id number] [address] [place] [phone] 18 Nov, 2014 [facility] [address] [id number] [address] [place] [phone] Nov, 2014 [facility] [address] [id number] [address] [place] [phone] 17 Nov, 2014 [facility] [address] [id number] [address] [place] [phone] Nov, [facility] [address] [id number] [address] [place] [address], [place] [id number] Oct, [facility] [address] [id number] [address] [place] [address], [place] [address] Oct, [facility] [address] [id number] [address] [place] [address], [place] [address] Oct, [facility] [address] [id number] [address] [place] [address], [place] [address] Oct, [facility] [address] [id number] [address] [place] [address], [place] [address] Oct, [facility] [address] [id number] [address] [place] [address], [place] [address] Oct, [facility] [address] [id number] [address] [place] [address], [place] [address] Sep, [facility] [address] [id number] [address] [place] [address], [place] [address] Sep, [facility] [address] [id number] [address] [place] [address], [place] [address] Sep, [facility] [address] [id number] [address] [place] [address], [place] [address] Sep, [facility] [address] [id number] [address] [place] [address], [place] [address] Sep, [facility] [address] [id number] [address] [place] [address], [place] [address] Sep, [facility] [address] [id number] [address] [place] [address], [place] [id number] Aug, [facility] [address] [id number] [address] [place] [address], [place] [address] Aug, [facility] [address] [id number] [address] [place] [address], [place] [address] Aug, [facility] [address] [id number] [address] [place] [address], [place] [address] Aug, [facility] [address] [id number] [address] [place] [address], [place] [address] Jul, [facility] [address] [id number] [address] [place] [address], [place] [address] Jul, [facility] [address] [id number] [address] [place] [address], [place] [address] May, [facility] [address] [id number] [address] [place] [address], [place] [address] May, [facility] [address] [id number] [address] [place] [address], [place] [address] Apr, [facility] [address] [id number] [address] [place] [address], [place] [address] Apr, [facility] [address] [id number] [address] [place] [address], [place] [address] Mar, [facility] [address] [id number] [address] [place] [address], [place] [address] Mar, [facility] [address] [id number] [address] [place] [address], [place] [address] Mar, [facility] [address] [id number] [address] [place] [address], [place] [address] Mar, [facility] [address] [id number] [address] [place] [address], [place] [address] February, [facility] [address] [id number] [address] [place] [address], [place] [address] February, [facility] [address] [id number] [address] [place] [address], [place] [address] Jan, [facility] [address] [id number] [address] [place] [address], [place] [address] Jan, [facility] [address] [id number] [address] [place] [address], [place] [address] Oct, [facility] [address] [id number] [address] [place] [address], [place] [address] Oct, [facility] [address] [id number] [address] [place] [address], [place] [address] Oct, [facility] [address] [id number] [address] [place] [address], [place] [address] Oct, [facility] [address] [id number] [address] [place] [address], [place] [address] Oct, [facility] [address] [id number] [address] [place] [address], [place] [address] Oct, [facility] [address] [id number] [address] [place] [address], [place] [address] Oct, [facility] [address] [id number] [address] [place] [address], [place] [address] Oct, [facility] [address] [id number] [address] [place] [address], [place] [address] Oct, [facility] [address] [id number] [address] [place] [address], [place] [address] Dec, [facility] [address] [id number] [address] [place] [address], [place] [address] Sep, [facility] [address] [id number] [address] [place] [address], [place] [address] Sep, [facility] [address] [id number] [address] [place] [address], [place] [address] May, [facility] [address] [id number] [address] [place] [address], [place] [address] Apr, [facility] [address] [id number] [address] [place] [address], [place] [address] Apr, [facility] [address] [id number] [address] [place] [address], [place] [address] Apr, [facility] [place] [address] [id number] [id number] February, [facility] [address] [id number] [address] [place] [phone] Jan, [facility] [address] [id number] [address] [place] [phone] Dec, [facility] [address] [id number] [address] [place] [phone] Sep, [facility] [address] [id number] [address] [place] [phone] Sep, [facility] [address] [id number] [address] [place] [phone] Aug, [facility] [address] [id number] [address] [place] [phone] Aug, [facility] [address] [id number] [address] [place] [id number] Jul, [facility] [address] [id number] [address] [place] [phone] Mar, [facility] [address] [id number] [address] [place] [id number] Mar, [facility] [address] [id number] [address] [place] [phone] Mar, IMMUNIZATIONS No Known Immunizations SOCIAL HISTORY Never Assessed REASON FOR VISIT f/Zane LOVETT PLAN OF CARE Activity Details Follow Up 4 Months Reason: VITAL SIGNS Height 68 in 2018-01-18 Weight 184.2 lbs 2018-01-18 Heart Rate 68 bpm 2018-01-18 Respiratory Rate 20 2018-01-18 BMI 28.00 kg/m2 2018-01-18 Blood pressure systolic 122 mmHg 2018-01-18 Blood pressure diastolic 76 mmHg 2018-01-18 MEDICATIONS Medication Instructions Dosage Frequency Start Date End Date Duration S dagmar HydrOXYzine Pamoate 25 MG 1 capsule in the am, 2pm, and at bedtime Orally Active Risperidone 1 MG TAKE 1 TABLET ORALLY TWICE A DAY FOR ANGER/ AGGRESSION Active Lisinopril 40 mg Orally Once a day 1 tablet 24h 31 Active Atorvastatin Calcium 20 MG Orally Once a day 1 tablet 24h 31 Active Toprol XL 50 mg Orally 2 times a day 1 tablet 12h 29 Jun, 2015 31 Active Travatan Z 0.004 % Ophthalmic Once a day 1 drop into affect ed eye in the evening 24h Active RESULTS No Results PROCEDURES Procedure Date Ordered Result Body Site [facility] VISIT ESTABLISHED PATIENT January 18, 2018 INSTRUCTIONS MEDICATIONS ADMINISTERED No Known Medications MEDICAL (GENERAL) HISTORY Type Description Date Medical History hyperlipidemia Medical History hypertension Medical History mood disorder Medical History mild mental retardation Medical History insomnia Medical History anxiety Medical History Asperger's Surgical History laser eye surgery
--- OUTSIDE RECORDS SUMMARY | 2020-01-04 10:20 | XMS REPORT ---
Author Author Anton FAY Organization [facility] Address [address] [place] [address] Care Team Providers Care Applicator Sprayer Name Role Phone TWAN FAY Unavailable PROBLEMS Type Condition ICD9-CM Code UUZ79-ZA Code Onset Dates Condition S tatus SNOMED Code Problem Urinary incontinence, unspecified type R32 Active [id number] Problem Developmental disorder F89 Active 6342185 Problem Nicotine abuse Z72.0 Active 60717 008 Problem Hyperlipidemia, unspecified hyperlipidemia E78.5 Active 29158636 Problem Anxiety F41.9 Active 39153539 Problem Essential hypertension I10 Active 24931370 ALLERGIES No Information ENCOUNTERS Encounter Location Date Diagnosis [place] [address] [facility] [id number] [address] [place] [phone] Apr, [facility] [address] [facility] [id number] [address] [place] [phone] Apr, [id number] [place] [address] [phone] Apr, [facility] [address] [facility] [id number] [address] [place] [address] [phone] Jan, Dental examination Z01.20 [place] [address] [facility] [id number] [address] [place] [phone] Dec, Developmental disorder F89 a nd Anxiety F41.9 [facility] [address] [facility] [id number] [address] [place] [phone] 14 Nov, 2017 Essential hypertension I10 ; Hyperlipidemia, unspecified hyperlipidemia E78.5 ; Nicotine abuse Z72.0 and Bilateral impacted cerumen H61.23 [facility] [address] [facility] [id number] [address] [place] [phone] Oct, [facility] [address] [id number] [address] [place] [address] [phone] Sep, Encounter for dental exam an d cleaning w/o abnormal findings Z01.20 [facility] [address] [facility] [id number] [address] [place] [phone] 11 Sep, 2017 Medicare annual wellness vis it, initial Z00.00 and Encounter for immunization Z23 [facility] [address] [facility] [id number] [address] [place] [phone] 28 Aug, 2017 Encounter for immunization Z 23 ; Developmental disorder F89 and Anxiety F41.9 [facility] [address] [id number] [address] [place] [address] [id number] 13 Jun, 2017 Encounter for dental examina tion and cleaning without abnormal findings Z01.20 [facility] [address] [facility] [id number] [address] [place] [phone] Apr, Anxiety F41.9 and Developmen oscar disorder F89 [facility] [address] [facility] [id number] [address] [place] [phone] Apr, Essential hypertension I10 a nd Nicotine abuse Z72.[address] [id number] [place] [address] [id number] Mar, Dental examination Z01.20 [facility] [address] [facility] [id number] [address] [place] [address] [phone] Mar, Encounter for dental examina tion and cleaning without abnormal findings Z01.20 [facility] [address] [facility] [id number] [address] [place] [phone] Jan, [facility] [address] [facility] [id number] [address] [place] [phone] Dec, Developmental disorder F89 a nd Anxiety F41.9 [facility] [address] [id number] [address] [place] [address] [id number] 15 Dec, 2016 Encounter for dental examina tion and cleaning without abnormal findings Z01.20 [facility] [address] [facility] [id number] [address] [place] [phone] 15 Sep, 2016 Encounter for immunization Z 23 [facility] [address] [facility] [id number] [address] [place] [phone] 08 Sep, 2016 Prostate cancer screening Z1 2.5 and Hyperlipidemia, unspecified hyperlipidemia E78.5 [facility] [address] [facility] [id number] [address] [place] [id number] 06 Sep, 2016 Annual physical exam Z00.00 ; Encounter for immunization Z23 ; Essential hypertension I10 ; Hyperlipidemia, unspecified hyperlipidemia E78.5 ; Anxiety F41.9 ; Prostate cancer screening Z12.5 and Nicotine abuse Z72.0 [facility] [address] [facility] [id number] [address] [place] [phone] Aug, [facility] [address] [facility] [id number] [address] [place] [phone] Jul, Urinary incontinence, unspec ified type R32 [facility] [id number] [place] [address] [phone] Jul, Dental examination Z01.20 [facility] [address] [facility] [id number] [address] [place] [phone] Jul, Urinary incontinence, unspec ified type R32 [facility] [address] [facility] [id number] [address] [place] [phone] Jul, Anxiety F41.9 and Developmen oscar disorder F89 [facility] [address] [id number] [address] [place] [address] [phone] May, Dental examination Z01.[address] [id number] [place] [address] [phone] Apr, Encounter for dental examination Z01.20 [facility] [address] [id number] [address] [place] [address] [phone] Apr, Encounter for dental examina tion and cleaning without abnormal findings Z01.20 [facility] [address] [id number] [address] [place] [phone] Mar, Developmental disorder F89 a nd Anxiety F41.9 [facility] [address] [facility] [id number] [address] [place] [address] [id number] February, Dental examination Z01.20 [facility] [address] [facility] [id number] [address] [place] [phone] February, Essential hypertension I10 [facility] [address] [facility] [id number] [address] [place] [phone] February, Arthralgia M25.50 [facility] [address] [id number] [address] [place] [address] [phone] Jan, Encounter for dental examina tion and cleaning without abnormal findings Z01.20 [facility] [address] [place] [id number] [address] [place] [phone] Dec, [facility] [address] [place] [id number] [place] [phone] Nov, Anxiety F41.9 and Developmen oscar disorder F89 [facility] [address] [facility] [id number] [address] [place] [phone] 17 Nov, 2015 [facility] [address] [address] Nov, [facility] [address] [place] [id number] [address] [place] [phone] Oct, Hyperlipidemia, unspecified hyperlipidemia E78.5 [facility] [address] [place] [id number] [address] [place] [phone] Oct, Essential hypertension I10 ; Hyperlipidemia, unspecified hyperlipidemia E78.5 and Prostate cancer screening Z12.5 [facility] [address] [place] [id number] [address] [place] [phone] 11 Oct, 2015 Essential hypertension I10 ; Hyperlipidemia, unspecified hyperlipidemia E78.5 ; Nicotine abuse Z72.0 ; Anxiety F41.9 ; Developmental disorder F89 and Prostate cancer screening Z12.5 [facility] [address] [place] [id number] [address] [place] [id number] Aug, Anxiety F41.9 and Developmen oscar disorder F89 [facility] [address] [place] [id number] [address] [place] [phone] Aug, Essential hypertension I10 a nd Encounter for immunization Z23 [facility] [address] [place] [id number] [address] [place] [phone] 04 Aug, 2015 Prostate cancer screening Z1 2.5 [facility] [address] [place] [id number] [address] [place] [phone] Jun, Hypertension 401.9 [facility] [address] [place] [id number] [place] [phone] Jun, [facility] [address] [place] [id number] [place] [address] May, Impulse control disorder, un specified 312.30 ; Generalized anxiety disorder 300.02 ; Other specified pervasive developmental disorders, 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 and 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 [facility] [address] [place] [id number] [address] [place] [phone] Mar, Hypertension 401.9 [facility] [address] [place] [id number] [address] [place] [address] [id number] Mar, Dental examination V72.2 [facility] [address] [place] [id number] [address] [place] [phone] February, Hypertension 401.9 and Hyper lipidemia 272.4 [facility] [id number] [place] [phone] February, [facility] [address] [place] [id number] [address] [place] [phone] February, Generalized anxiety disorder 300.02 ; Impulse control disorder 312.30 ; 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 and Benign essential HTN 401.1 [facility] [address] [place] [id number] [address] [place] [phone] Jan, [facility] [address] [place] [id number] [address] [place] [phone] 13 Jan, 2015 [facility] [address] [id number] [address] [place] [address], [place] [address] 18 Dec, 2014 [facility] [address] [id number] [address] [place] [address], [place] [address] 18 Dec, 2014 [facility] [address] [id number] [address] [place] [address], [place] [address] 17 Dec, 2014 [facility] [address] [id number] [address] [place] [phone] 17 Dec, 2014 [facility] [address] [id number] [address] [place] [address], [place] [address] 16 Dec, 2014 [facility] [address] [id number] [address] [place] [phone] 16 Dec, 2014 [facility] [address] [id number] [address] [place] [phone] 09 Dec, 2014 [facility] [address] [id number] [address] [place] [phone] 09 Dec, 2014 [facility] [address] [id number] [address] [place] [phone] 20 Nov, 2014 [facility] [address] [id number] [address] [place] [phone] 20 Nov, 2014 [facility] [address] [id number] [address] [place] [phone] 19 Nov, 2014 [facility] [address] [id number] [address] [place] [phone] 19 Nov, 2014 [facility] [address] [id number] [address] [place] [phone] 18 Nov, 2014 [facility] [address] [id number] [address] [place] [phone] 18 Nov, 2014 [facility] [address] [id number] [address] [place] [phone] 17 Nov, 2014 [facility] [address] [id number] [address] [place] [address], [place] [address] Nov, [facility] [address] [id number] [address] [place] [address], [place] [address] Oct, [facility] [address] [id number] [address] [place] [address], [place] [address] Oct, [facility] [address] [id number] [address] [place] [address], [place] [address] Oct, [facility] [address] [id number] [address] [place] [address], [place] [address] Oct, [facility] [address] [id number] [address] [place] [address], [place] [address] Oct, [facility] [address] [id number] [address] [place] [address], [place] [address] Oct, [facility] [address] [id number] [address] [place] [address], [place] [address] Sep, [facility] [address] [id number] [address] [place] [address], [place] [address] Sep, [facility] [address] [id number] [address] [place] [address], [place] [address] Sep, [facility] [address] [id number] [address] [place] [address], [place] [address] Sep, [facility] [address] [id number] [address] [place] [address], [place] [address] Sep, [facility] [address] [id number] [address] [place] [address], [place] [address] Sep, [facility] [address] [id number] [address] [place] [address], [place] [address] Aug, [facility] [address] [id number] [address] [place] [address], [place] [address] Aug, [facility] [address] [id number] [address] [place] [address], [place] [address] Aug, [facility] [address] [id number] [address] [place] [address], [place] [address] Aug, [facility] [address] [id number] [address] [place] [address], [place] [address] Jul, [facility] [address] [id number] [address] [place] [address], [place] [address] Jul, [facility] [address] [id number] [address] [place] [address], [place] [address] May, [facility] [address] [id number] [address] [place] [address], [place] [address] May, [facility] [address] [id number] [address] [place] [address], [place] [address] Apr, [facility] [address] [id number] [address] [place] [address], [place] [address] Apr, [facility] [address] [id number] [address] [place] [address], [place] [address] Mar, [facility] [address] [id number] [address] [place] [address], [place] [address] Mar, [facility] [address] [id number] [address] [place] [address], [place] [address] Mar, [facility] [address] [id number] [address] [place] [address], [place] [address] Mar, [facility] [address] [id number] [address] [place] [address], [place] [address] February, [facility] [address] [id number] [address] [place] [address], [place] [address] February, [facility] [address] [id number] [address] [place] [address], [place] [address] Jan, [facility] [address] [id number] [address] [place] [address], [place] [address] Jan, [facility] [address] [id number] [address] [place] [address], [place] [address] Oct, [facility] [address] [id number] [address] [place] [address], [place] [address] Oct, [facility] [address] [id number] [address] [place] [address], [place] [address] Oct, [facility] [address] [id number] [address] [place] [address], [place] [address] Oct, [facility] [address] [id number] [address] [place] [address], [place] [address] Oct, [facility] [address] [id number] [address] [place] [address], [place] [address] Oct, [facility] [address] [id number] [address] [place] [address], [place] [address] Oct, [facility] [address] [id number] [address] [place] [address], [place] [address] Oct, [facility] [address] [id number] [address] [place] [address], [place] [address] Oct, [facility] [address] [id number] [address] [place] [address], [place] [address] Dec, [facility] [address] [id number] [address] [place] [address], [place] [address] Sep, [facility] [address] [id number] [address] [place] [address], [place] [address] Sep, [facility] [address] [id number] [address] [place] [address], [place] [address] May, [facility] [address] [id number] [address] [place] [address], [place] [address] Apr, [facility] [address] [id number] [address] [place] [address], [place] [address] Apr, [facility] [address] [id number] [address] [place] [address], [place] [address] Apr, [facility] [address] [id number] [id number] February, [facility] [address] [id number] [address] [place] [address] Jan, [facility] [address] [id number] [address] [place] [address] Dec, [facility] [address] [id number] [address] [place] [phone] Sep, [facility] [address] [id number] [address] [place] [phone] Sep, [facility] [address] [id number] [address] [place] [address] Aug, [facility] [address] [id number] [address] [place] [phone] Aug, [facility] [address] [id number] [address] [place] [address] Jul, [facility] [address] [id number] [address] [place] [phone] Mar, [facility] [address] [id number] [address] [place] [phone] Mar, [facility] [address] [id number] [address] [place] [address] Mar, IMMUNIZATIONS No Known Immunizations SOCIAL HISTORY Never Assessed REASON FOR VISIT Prostate PLAN OF CARE VITAL SIGNS MEDICATIONS Unknown Medications RESULTS No Results PROCEDURES No Known procedures INSTRUCTIONS MEDICATIONS ADMINISTERED No Known Medications MEDICAL (GENERAL) HISTORY Type Description Date Medical History hyperlipidemia Medical History hypertension Medical History mood disorder Medical History mild mental retardation Medical History insomnia Medical History anxiety Medical History Asperger's Surgical History laser eye surgery
--- OUTSIDE RECORDS SUMMARY | 2020-01-04 10:20 | XMS REPORT ---
Author Author Anton GOLDMAN [facility] Address Unknown Care Team Providers Care Lead Machinist Name Role Phone GLORIA GOLDMAN Unavailable PROBLEMS Type Condition ICD9-CM Code [id number] Code Onset Dates Condition S tatus SNOMED Code Problem Urinary incontinence, unspecified type R32 Active [id number] Problem Developmental disorder F89 Active 7016750 Problem Nicotine abuse Z72.0 Active 63196 008 Problem Hyperlipidemia, unspecified hyperlipidemia E78.5 Active 12456914 Problem Anxiety F41.9 Active 93150191 Problem Essential hypertension I10 Active [id number] ALLERGIES No Information ENCOUNTERS Encounter Location Date Diagnosis [facility] [address] [facility] [id number] [address] [place] [phone] Jun, [facility] [address] [id number] [address] [place] [phone] Jun, [facility] [address] [id number] Apr, Dental examination Z01.20 [facility] [address] [place] [address] [id number] [place] [phone] Jan, Dental examination Z01.20 [facility] [address] [id number] [address] [place] [phone] Dec, Developmental disorder F89 a nd Anxiety F41.9 [facility] [address] [facility] [id number] [address] [place] [phone] 14 Nov, 2017 Essential hypertension I10 ; Hyperlipidemia, unspecified hyperlipidemia E78.5 ; Nicotine abuse Z72.0 and Bilateral impacted cerumen H61.23 [facility] [address] [facility] [id number] [address] [place] [phone] Oct, [facility] [address] [place] [address] [id number] [address] [place] [address] [phone] Sep, Encounter for dental exam an d cleaning w/o abnormal findings Z01.20 [facility] [address] [facility] [id number] [address] [place] [phone] 11 Sep, 2017 Medicare annual wellness vis it, initial Z00.00 and Encounter for immunization Z23 [facility] [address] [facility] [id number] [address] [place] [phone] Aug, Encounter for immunization Z 23 ; Developmental disorder F89 and Anxiety F41.9 [facility] [address] [id number] [address] [place] [address] [phone] Jun, Encounter for dental examina tion and cleaning without abnormal findings Z01.20 [facility] [address] [facility] [id number] [address] [place] [phone] Apr, Anxiety F41.9 and Developmen oscar disorder F89 [facility] [address] [facility] [id number] [address] [place] [phone] Apr, Essential hypertension I10 a nd Nicotine abuse Z72.[id number] [place] [address] [id number] Mar, Dental examination Z01.20 [facility] [address] [facility] [id number] [address] [place] [address] [id number] Mar, Encounter for dental examina tion and cleaning without abnormal findings Z01.20 [facility] [address] [facility] [id number] [address] [place] [phone] Jan, [facility] [address] [facility] [id number] [address] [place] [phone] Dec, Developmental disorder F89 a nd Anxiety F41.9 [facility] [address] [id number] [address] [place] [address] [phone] Dec, Encounter for dental examina tion and cleaning without abnormal findings Z01.20 [facility] [address] [facility] [id number] [address] [place] [phone] Sep, Encounter for immunization Z 23 [facility] [address] [facility] [id number] [address] [place] [phone] 08 Sep, 2016 Prostate cancer screening Z1 2.5 and Hyperlipidemia, unspecified hyperlipidemia E78.5 [facility] [address] [facility] [id number] [address] [place] [phone] 06 Sep, 2016 Annual physical exam Z00.00 ; Encounter for immunization Z23 ; Essential hypertension I10 ; Hyperlipidemia, unspecified hyperlipidemia E78.5 ; Anxiety F41.9 ; Prostate cancer screening Z12.5 and Nicotine abuse Z72.0 [facility] [address] [facility] [id number] [address] [place] [phone] Aug, [facility] [address] [facility] [id number] [address] [place] [phone] Jul, Urinary incontinence, unspec ified type R32 [facility] [id number] [place] [address] [phone] Jul, Dental examination Z01.20 [facility] [id number] [place] [phone] Jul, Urinary incontinence, unspec ified type R32 [facility] [address] [place] [id number] [address] [place] [phone] Jul, Anxiety F41.9 and Developmen oscar disorder F89 [facility] [address] [id number] [address] [place] [address] [id number] May, Dental examination Z01.[address] [place] [id number] [place] [address] [phone] Apr, Encounter for dental examination Z01.20 [facility] [address] [id number] [place] [address] [phone] Apr, Encounter for dental examina tion and cleaning without abnormal findings Z01.20 [facility] [address] [facility] [id number] [address] [place] [phone] Mar, Developmental disorder F89 a nd Anxiety F41.9 [facility] [address] [id number] [address] [place] [address] [id number] February, Dental examination Z01.20 [facility] [address] [place] [id number] [place] [phone] February, Essential hypertension I10 [place] [address] [phone] February, Arthralgia M25.50 [facility] [address] [facility] [id number] [address] [place] [address] [phone] Jan, Encounter for dental examina tion and cleaning without abnormal findings Z01.20 [place] [address] [phone] Dec, [place] [address] [phone] Nov, Anxiety F41.9 and Developmen oscar disorder F89 [place] [address] [place] [id number] [place] [phone] Nov, [facility] [address] [phone] Nov, [facility] [address] [place] [id number] [place] [phone] Oct, Hyperlipidemia, unspecified hyperlipidemia E78.5 [place] [address] [place] [id number] [address] [place] [phone] Oct, Essential hypertension I10 ; Hyperlipidemia, unspecified hyperlipidemia E78.5 and Prostate cancer screening Z12.5 [place] [address] [place] [id number] [address] [place] [phone] Oct, Essential hypertension I10 ; Hyperlipidemia, unspecified hyperlipidemia E78.5 ; Nicotine abuse Z72.0 ; Anxiety F41.9 ; Developmental disorder F89 and Prostate cancer screening Z12.5 [place] [address] [place] [id number] [address] [place] [phone] Aug, Anxiety F41.9 and Developmen oscar disorder F89 [facility] [address] [place] [id number] [address] [place] [phone] Aug, Essential hypertension I10 a nd Encounter for immunization Z23 [facility] [address] [place] [id number] [address] [place] [phone] 04 Aug, 2015 Prostate cancer screening Z1 2.5 [facility] [address] [place] [id number] [place] [phone] 29 Jun, 2015 Hypertension 401.9 [facility] [address] [place] [id number] [address] [place] [phone] 18 Jun, 2015 [facility] [address] [phone] May, Impulse control disorder, un specified 312.30 ; Generalized anxiety disorder 300.02 ; Other specified pervasive developmental disorders, 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 and 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 [facility] [address] [place] [id number] [address] [place] [phone] Mar, Hypertension 401.9 [facility] [address] [place] [id number] [address] [place] [address] [phone] Mar, Dental examination V72.2 [facility] [address] [place] [id number] [address] [place] [phone] February, Hypertension 401.9 and Hyper lipidemia 272.4 [facility] [address] [place] [id number] [address] [place] [phone] February, [facility] [address] [place] [id number] [address] [place] [phone] February, Generalized anxiety disorder 300.02 ; Impulse control disorder 312.30 ; 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 and Benign essential HTN 401.1 [facility] [address] [place] [id number] [address] [place] [phone] Jan, [facility] [address] [place] [address] [id number] [address] [place] [phone] Jan, [facility] [address] [id number] [address] [place] [address], [place] [phone] 18 Dec, 2014 [facility] [address] [id number] [address] [place] [address], [place] [address] 18 Dec, 2014 [facility] [address] [id number] [address] [place] [address], [place] [address] 17 Dec, 2014 [facility] [address] [id number] [address] [place] [address], [place] [address] 17 Dec, 2014 [facility] [address] [id number] [address] [place] [address], [place] [address] 16 Dec, 2014 [facility] [address] [id number] [address] [place] [address], [place] [address] 16 Dec, 2014 [facility] [address] [id number] [address] [place] [address], [place] [address] 09 Dec, 2014 [facility] [address] [id number] [address] [place] [address], [place] [address] 09 Dec, 2014 [facility] [address] [id number] [address] [place] [address], [place] [address] 20 Nov, 2014 [facility] [address] [id number] [address] [place] [address], [place] [address] 20 Nov, 2014 [facility] [address] [id number] [address] [place] [address], [place] [address] 19 Nov, 2014 [facility] [address] [id number] [address] [place] [phone] 19 Nov, 2014 [facility] [address] [id number] [address] [place] [address], [place] [address] 18 Nov, 2014 [facility] [address] [id number] [address] [place] [address], [place] [address] 18 Nov, 2014 [facility] [address] [id number] [address] [place] [address], [place] [address] 17 Nov, 2014 [facility] [address] [id number] [address] [place] [address], [place] [address] 17 Nov, 2014 [facility] [address] [id number] [address] [place] [address], [place] [address] Oct, [facility] [address] [id number] [address] [place] [address], [place] [address] Oct, [facility] [address] [id number] [address] [place] [address], [place] [address] Oct, [facility] [address] [id number] [address] [place] [address], [place] [address] Oct, [facility] [address] [id number] [address] [place] [address], [place] [address] Oct, [facility] [address] [id number] [address] [place] [address], [place] [address] Oct, [facility] [address] [id number] [address] [place] [address], [place] [address] Sep, [facility] [address] [id number] [address] [place] [address], [place] [address] Sep, [facility] [address] [id number] [address] [place] [address], [place] [address] Sep, [facility] [address] [id number] [address] [place] [address], [place] [address] Sep, [facility] [address] [id number] [address] [place] [address], [place] [address] Sep, [facility] [address] [id number] [address] [place] [address], [place] [address] Sep, [facility] [address] [id number] [address] [place] [address], [place] [address] Aug, [facility] [address] [id number] [address] [place] [address], [place] [address] Aug, [facility] [address] [id number] [address] [place] [address], [place] [address] Aug, [facility] [address] [id number] [address] [place] [address], [place] [address] Aug, [facility] [address] [id number] [address] [place] [address], [place] [address] Jul, [facility] [address] [id number] [address] [place] [address], [place] [address] Jul, [facility] [address] [id number] [address] [place] [address], [place] [address] May, [facility] [address] [id number] [address] [place] [address], [place] [address] May, [facility] [address] [id number] [address] [place] [address], [place] [address] Apr, [facility] [address] [id number] [address] [place] [address], [place] [address] Apr, [facility] [address] [id number] [address] [place] [address], [place] [address] Mar, [facility] [address] [id number] [address] [place] [address], [place] [address] Mar, [facility] [address] [id number] [address] [place] [address], [place] [address] Mar, [facility] [address] [id number] [address] [place] [address], [place] [address] Mar, [facility] [address] [id number] [address] [place] [address], [place] [address] February, [facility] [address] [id number] [address] [place] [address], [place] [address] February, [facility] [address] [id number] [address] [place] [address], [place] [address] Jan, [facility] [address] [id number] [address] [place] [address], [place] [address] Jan, [facility] [address] [id number] [address] [place] [address], [place] [address] Oct, [facility] [address] [id number] [address] [place] [address], [place] [address] Oct, [facility] [address] [id number] [address] [place] [address], [place] [address] Oct, [facility] [address] [id number] [address] [place] [address], [place] [address] Oct, [facility] [address] [id number] [address] [place] [address], [place] [address] Oct, [facility] [address] [id number] [address] [place] [address], [place] [address] Oct, [facility] [address] [id number] [address] [place] [address], [place] [address] Oct, [facility] [address] [id number] [address] [place] [address], [place] [address] Oct, [facility] [address] [id number] [address] [place] [address], [place] [address] Oct, [facility] [address] [id number] [address] [place] [address], [place] [address] Dec, [facility] [address] [id number] [address] [place] [address], [place] [address] Sep, [facility] [address] [id number] [address] [place] [address], [place] [address] Sep, [facility] [address] [id number] [address] [place] [address], [place] [address] May, [facility] [address] [id number] [address] [place] [address], [place] [address] Apr, [facility] [address] [id number] [address] [place] [address], [place] [address] Apr, [facility] [address] [id number] [address] [place] [address], [place] [address] Apr, [facility] [address] [id number] [place] S [id number] February, [facility] [address] [id number] [address] [place] [address] Jan, [facility] [address] [id number] [address] [place] [address] Dec, [facility] [address] [id number] [address] [place] [phone] Sep, [facility] [address] [id number] [address] [place] [id number] Sep, [facility] [address] [id number] [address] [place] [phone] Aug, [facility] [address] [id number] [address] [place] [phone] Aug, [facility] [address] [facility] [id number] [address] [place] [phone] Jul, [facility] [address] [id number] [address] [place] [address] Mar, [facility] [address] [facility] [id number] [address] [place] [phone] Mar, [facility] [address] [facility] [id number] [address] [place] [address] Mar, IMMUNIZATIONS No Known Immunizations SOCIAL HISTORY Never Assessed REASON FOR VISIT PLAN OF CARE VITAL SIGNS MEDICATIONS Unknown Medications RESULTS No Results PROCEDURES Procedure Date Ordered Result Body Site PROPHYLAXIS - ADULT May 04, 2018 TOPICAL FLUORIDE VARNISH May 04, 2018 INSTRUCTIONS MEDICATIONS ADMINISTERED No Known Medications MEDICAL (GENERAL) HISTORY Type Description Date Medical History hyperlipidemia Medical History hypertension Medical History mood disorder Medical History mild mental retardation Medical History insomnia Medical History anxiety Medical History Asperger's Surgical History laser eye surgery
--- OUTSIDE RECORDS SUMMARY | 2020-01-04 10:20 | XMS REPORT ---
Author Author Anton FAY Organization [facility] Address [address] [place] [address] Care Team Providers Care Agriculture Scientist Name Role Phone TWAN FAY Unavailable PROBLEMS Type Condition ICD9-CM Code PUS04-HE Code Onset Dates Condition S tatus SNOMED Code Problem Urinary incontinence, unspecified type R32 Active 593302497 Problem Developmental disorder F89 Active 5926361 Problem Nicotine abuse Z72.0 Active 40533 008 Problem Hyperlipidemia, unspecified hyperlipidemia E78.5 Active 74665003 Problem Anxiety F41.9 Active 52533713 Problem Essential hypertension I10 Active 68085978 ALLERGIES No Known Allergies ENCOUNTERS Encounter Location Date Diagnosis [place] [address] [facility] [id number] [address] [place] [phone] Nov, [facility] [address] [facility] [id number] [address] [place] [phone] Jul, Developmental disorder F89 a nd Anxiety F41.9 [place] [address] [facility] [id number] [address] [place] [phone] Jun, Essential hypertension I10 ; Nicotine abuse Z72.0 and Encounter for immunization Z23 [facility] [address] [id number] [address] [place] [address] [id number] Apr, Dental examination Z01.[address] [facility] [address] [id number] [address] [place] [address] [id number] Jan, Dental examination Z01.20 [facility] [address] [facility] [id number] [address] [place] [phone] Dec, Developmental disorder F89 a nd Anxiety F41.9 [facility] [address] [facility] [id number] [address] [place] [phone] 14 Nov, 2017 Essential hypertension I10 ; Hyperlipidemia, unspecified hyperlipidemia E78.5 ; Nicotine abuse Z72.0 and Bilateral impacted cerumen H61.23 [facility] [address] [facility] [id number] [address] [place] [phone] Oct, [facility] [address] [id number] [address] [place] [address] [phone] Sep, Encounter for dental exam an d cleaning w/o abnormal findings Z01.20 [facility] [address] [facility] [id number] [address] [place] [phone] 11 Sep, 2017 Medicare annual wellness vis it, initial Z00.00 and Encounter for immunization Z23 [facility] [address] [facility] [id number] [place] [phone] Aug, Encounter for immunization Z 23 ; Developmental disorder F89 and Anxiety F41.[address] [facility] [id number] [place] [address] [id number] Jun, Encounter for dental examina tion and cleaning without abnormal findings Z01.20 [facility] [address] [facility] [id number] [address] [place] [phone] Apr, Anxiety F41.9 and Developmen oscar disorder F89 [facility] [address] [facility] [id number] [address] [place] [phone] Apr, Essential hypertension I10 a nd Nicotine abuse Z72.0 [place] [id number] [facility] [id number] [place] [address] [id number] Mar, Dental examination Z01.[address] [facility] [address] [facility] [id number] [address] [place] [address] [phone] Mar, Encounter for dental examina tion and cleaning without abnormal findings Z01.20 [facility] [address] [facility] [id number] [address] [place] [phone] Jan, [facility] [address] [facility] [id number] [address] [place] [phone] Dec, Developmental disorder F89 a nd Anxiety F41.[address] [facility] [address] [id number] [address] [place] [address] [id number] Dec, Encounter for dental examina tion and cleaning without abnormal findings Z01.20 [facility] [address] [facility] [id number] [address] [place] [phone] 15 Sep, 2016 Encounter for immunization Z 23 [facility] [address] [facility] [id number] [address] [place] [phone] 08 Sep, 2016 Prostate cancer screening Z1 2.5 and Hyperlipidemia, unspecified hyperlipidemia E78.5 [facility] [address] [facility] [id number] [address] [place] [phone] 06 Sep, 2016 Annual physical exam Z00.00 ; Encounter for immunization Z23 ; Essential hypertension I10 ; Hyperlipidemia, unspecified hyperlipidemia E78.5 ; Anxiety F41.9 ; Prostate cancer screening Z12.5 and Nicotine abuse Z72.0 [facility] [address] [facility] [id number] [address] [place] [phone] Aug, [facility] [address] [facility] [id number] [address] [place] [phone] Jul, Urinary incontinence, unspec ified type R32 [facility] [address] [id number] [address] [place] [address] [id number] Jul, Dental examination Z01.20 [facility] [address] [place] [id number] [address] [place] [phone] Jul, Urinary incontinence, unspec ified type R32 [facility] [address] [facility] [id number] [address] [place] [phone] Jul, Anxiety F41.9 and Developmen oscar disorder F[address] [facility] [address] [id number] [address] [place] [address] [id number] May, Dental examination Z01.20 [facility] [address] [id number] [id number] Apr, Encounter for dental examination Z01.[address] [facility] [address] [id number] [address] [place] [address] [id number] Apr, Encounter for dental examina tion and cleaning without abnormal findings Z01.20 [facility] [address] [id number] [address] [place] [phone] Mar, Developmental disorder F89 a nd Anxiety F41.[address] [facility] [address] [id number] [address] [place] [address] [id number] February, Dental examination Z01.20 [facility] [address] [id number] [address] [place] [phone] February, Essential hypertension I10 [facility] [address] [facility] [id number] [address] [place] [phone] February, Arthralgia M25.[address] [facility] [address] [id number] [address] [place] [address] [id number] Jan, Encounter for dental examina tion and cleaning without abnormal findings Z01.20 [facility] [address] [facility] [id number] [address] [place] [phone] Dec, [facility] [address] [facility] [id number] [address] [place] [phone] Nov, Anxiety F41.9 and Developmen oscar disorder F89 [facility] [address] [facility] [id number] [address] [place] [phone] Nov, [facility] [address] [facility] [id number] [address] [place] [phone] Nov, [facility] [address] [facility] [id number] [address] [place] [phone] Oct, Hyperlipidemia, unspecified hyperlipidemia E78.5 [facility] [address] [facility] [id number] [address] [place] [phone] Oct, Essential hypertension I10 ; Hyperlipidemia, unspecified hyperlipidemia E78.5 and Prostate cancer screening Z12.5 [facility] [address] [facility] [id number] [address] [place] [phone] Oct, Essential hypertension I10 ; Hyperlipidemia, unspecified hyperlipidemia E78.5 ; Nicotine abuse Z72.0 ; Anxiety F41.9 ; Developmental disorder F89 and Prostate cancer screening Z12.5 [facility] [address] [place] [id number] [address] [place] [phone] Aug, Anxiety F41.9 and Developmen oscar disorder F89 [facility] [address] [place] [id number] [address] [place] [phone] Aug, Essential hypertension I10 a nd Encounter for immunization Z23 [facility] [address] [place] [id number] [address] [place] [phone] Aug, Prostate cancer screening Z1 2.5 [facility] [address] [place] [id number] [address] [place] [phone] Jun, Hypertension 401.9 [facility] [address] [place] [id number] [address] [place] [phone] Jun, [facility] [address] [place] [id number] [address] [place] [phone] May, Impulse control disorder, un specified 312.30 ; Generalized anxiety disorder 300.02 ; Other specified pervasive developmental disorders, 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 [address] [place] [id number] [address] [place] [address] [id number] Mar, Dental examination V72.2 [facility] [address] [place] [id number] [address] [place] [phone] February, Hypertension 401.9 and Hyper lipidemia 272.4 [facility] [address] [place] [id number] [address] [place] [phone] February, [facility] [address] [place] [id number] [address] [place] [phone] February, Generalized anxiety disorder 300.02 ; Impulse control disorder 312.30 ; 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 [address] [id number] [address] [place] [phone] 18 Dec, 2014 [facility] [address] [id number] [address] [place] [phone] 18 Dec, [address] [facility] [address] [id number] [address] [place] [phone] 17 Dec, [address] [facility] [address] [id number] [address] [place] [phone] 17 Dec, [address] [facility] [address] [id number] [address] [place] [phone] 16 Dec, [address] [facility] [address] [id number] [address] [place] [phone] 16 Dec, [address] [facility] [address] [id number] [address] [place] [phone] Dec, [facility] [address] [id number] [address] [place] [phone] Dec, [facility] [address] [id number] [address] [place] [phone] 20 Nov, [address] [facility] [address] [id number] [address] [place] [phone] Nov, [facility] [address] [id number] [address] [place] [phone] Nov, [facility] [address] [id number] [address] [place] [phone] Nov, [facility] [address] [id number] [address] [place] [phone] 18 Nov, 2014 [facility] [address] [id number] [address] [place] [address], [place] [phone] 18 Nov, 2014 [facility] [address] [id number] [address] [place] [address], [place] [address] Nov, [facility] [address] [id number] [address] [place] [address], [place] [address] Nov, [facility] [address] [id number] [address] [place] [address], [place] [address] Oct, [facility] [address] [id number] [address] [place] [address], [place] [address] Oct, [facility] [address] [id number] [address] [place] [address], [place] [address] Oct, [facility] [address] [id number] [address] [place] [address], [place] [address] Oct, [facility] [address] [id number] [address] [place] [phone] Oct, [facility] [address] [id number] [address] [place] [address], [place] [address] Oct, [facility] [address] [id number] [address] [place] [phone] Sep, [facility] [address] [id number] [address] [place] [phone] Sep, [facility] [address] [id number] [address] [place] [phone] Sep, [facility] [address] [id number] [address] [place] [address], [place] [address] Sep, [facility] [address] [id number] [address] [place] [address], [place] [address] Sep, [facility] [address] [id number] [address] [place] [phone] Sep, [facility] [address] [id number] [address] [place] [phone] Aug, [facility] [address] [id number] [address] [place] [address], [place] [address] Aug, [facility] [address] [id number] [address] [place] [address], [place] [address] Aug, [facility] [address] [id number] [address] [place] [address], [place] [address] Aug, [facility] [address] [id number] [address] [place] [address], [place] [address] Jul, [facility] [address] [id number] [address] [place] [address], [place] [address] Jul, [facility] [address] [id number] [address] [place] [address], [place] [address] May, [facility] [address] [id number] [address] [place] [address], [place] [address] May, [facility] [address] [id number] [address] [place] [address], [place] [address] Apr, [facility] [address] [id number] [address] [place] [address], [place] [address] Apr, [facility] [address] [id number] [address] [place] [address], [place] [address] Mar, [facility] [address] [id number] [address] [place] [address], [place] [address] Mar, [facility] [address] [id number] [address] [place] [address], [place] [address] Mar, [facility] [address] [id number] [address] [place] [address], [place] [address] Mar, [facility] [address] [id number] [address] [place] [address], [place] [address] February, [facility] [address] [id number] [address] [place] [address], [place] [address] February, [facility] [address] [id number] [address] [place] [address], [place] [address] Jan, [facility] [address] [id number] [address] [place] [address], [place] [address] Jan, [facility] [address] [id number] [address] [place] [address], [place] [address] Oct, [facility] [address] [id number] [address] [place] [address], [place] [address] Oct, [facility] [address] [id number] [address] [place] [address], [place] [address] Oct, [facility] [address] [id number] [address] [place] [address], [place] [address] Oct, [facility] [address] [id number] [address] [place] [address], [place] [address] Oct, [facility] [address] [id number] [address] [place] [address], [place] [address] Oct, [facility] [address] [id number] [address] [place] [address], [place] [address] Oct, [facility] [address] [id number] [address] [place] [address], [place] [address] Oct, [facility] [address] [id number] [address] [place] [address], [place] [address] Oct, [facility] [address] [id number] [address] [place] [address], [place] [address] Dec, [facility] [address] [id number] [address] [place] [address], [place] [address] Sep, [facility] [address] [id number] [address] [place] [address], [place] [address] Sep, [facility] [address] [id number] [address] [place] [address], [place] [address] May, [facility] [address] [id number] [address] [place] [address], [place] [address] Apr, [facility] [address] [id number] [address] [place] [phone] Apr, [facility] [address] [id number] [address] [place] [address] Apr, [facility] [address] [id number] [id number] February, [facility] [address] [id number] [address] [place] [phone] Jan, [facility] [address] [id number] [address] [place] [phone] Dec, [facility] [address] [id number] [address] [place] [phone] Sep, [facility] [address] [id number] [address] [place] [phone] Sep, [facility] [address] [id number] [address] [place] [id number] Aug, [facility] [address] [id number] [address] [place] [phone] Aug, [facility] [address] [id number] [address] [place] [phone] Jul, [facility] [address] [id number] [address] [place] [phone] Mar, [facility] [address] [id number] [address] [place] [phone] Mar, [facility] [address] [id number] [address] [place] [address] Mar, IMMUNIZATIONS Vaccine Route Administration Date Status FLULAVAL QUAD 0.5ML (6 MO & UP) 2017 IM Intramuscular Jul 20, 2 018 Administered SOCIAL HISTORY Never Assessed REASON FOR VISIT Blood Pressure Pt in for follow up on blood pressure, BONY Jimenez PLAN OF CARE Activity Details Follow Up 3 Months Reason:BP VITAL SIGNS Height 68 in 2018-07-20 Weight 189.6 lbs 2018-07-20 Temperature 98.6 degrees Fahrenheit 2018-07-20 Heart Rate 82 bpm 2018-07-20 Respiratory Rate 18 2018-07-20 BMI 28.83 kg/m2 2018-07-20 Blood pressure systolic 164 mmHg 2018-07-20 Blood pressure diastolic 82 mmHg 2018-07-20 MEDICATIONS Medication Instructions Dosage Frequency Start Date End Date Duration S patrick Travatan Z 0.004 % Ophthalmic Once a day 1 drop into affect ed eye in the evening 24h Active Toprol XL 50 mg Orally 2 times a day 1 tablet 12h 29 Jun, 2015 31 Active Atorvastatin Calcium 20 MG Orally Once a day 1 tablet 24h 31 Active Lisinopril 40 mg Orally Once a day 1 tablet 24h 31 Active Risperidone 1 MG TAKE 1 TABLET ORALLY TWICE A DAY FOR ANGER/ AGGRESSION 31 Active HydrOXYzine Pamoate 25 MG 1 capsule in the am, 2pm, and at bedtime Orally 31 Active RESULTS No Results PROCEDURES Procedure Date Ordered Result Body Site [facility] VISIT ESTABLISHED PATIENT Jul 20, 2018 SINGLE IMMUNIZATION ADMIN Jul 20, 2018 FLULAVAL QUAD 0.5ML (6 MO AND UP) 2017Jul 20, 2018 INSTRUCTIONS MEDICATIONS ADMINISTERED No Known Medications MEDICAL (GENERAL) HISTORY Type Description Date Medical History hyperlipidemia Medical History hypertension Medical History mood disorder Medical History mild mental retardation Medical History insomnia Medical History anxiety Medical History Asperger's Surgical History laser eye surgery
--- OUTSIDE RECORDS SUMMARY | 2020-01-04 10:20 | XMS REPORT ---
Author Author Anton COX Organization [employer] Address Unknown Phone Unavailable Care Team Providers Care First Leveler Name Role Phone TRUE COX CP Unavailable Allergies, Adverse Reactions, Alerts Substance Reaction Event Type N.K.D.A. Info Not Available Non Drug Allergy Problems Problem Type Condition Code Onset Dates Condition Statu s Problem Routine general medical examination at [facility] ili V70.0 Active Assessment Prostate cancer screening Z12.5 Ac tive Problem Hyperlipidemia 272.4 Active Problem Need for prophylactic vaccination and inoculation, Inf luenza V04.81 Active Problem Hypertension 401.9 Active Problem Special screening for malignant neoplasms, colon V76.5 1 Active Problem Personal history of tobacco use, presenting hazards to health V15.82 Active Problem Other specified pervasive de velopmental disorders, 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 Active Problem Generalized anxiety disorder 300.02 Active Medications Medication Code System Code Instructions Start Date End Date Status Dosage HydrOXYzine HCl [facility] 94142127174 25 MG take 1 tablet by Oral route 3 times per day take at AM, 2pm, and at HS Risperidone [facility] 75275591303 1 MG TAKE 1 T ABLET ORALLY TWICE A DAY FOR ANGER/AGGRESSION Lisinopril [facility] [address]-57 40 MG Orally Once a day March 21, 2015 1 tablet Toprol XL [facility] [address]-65 50 MG Orally Once a day Jul 23, 2015 1 tablet Procedures Procedure Coding System Code Date PROS CANCER SCR; ESTABLISHED PT DIGTL RECTAL EXAM CPT-4 G0102 Aug 28, 2015 [facility] VISIT ESTABLISHED PATIENT CPT-4 G0467 N 2014 [facility] VISIT ESTABLISHED PATIENT CPT-4 G0467 N 2014 Office Visit, Est Pt., Level 3 CPT-4 97981 N 2014 Vital Signs Date/Time: Aug 28, 2015 Temperature 97.9 F Weight 171.6 lbs Height 68 in BMI 26.09 Index Blood Pressure Diastolic 94 mmHg Blood Pressure Systolic 138 mmHg Cardiac Monitoring Heart Rate 88 bpm Results No Known Results Summary Purpose eClinicalWorks Submission
--- OUTSIDE RECORDS SUMMARY | 2020-01-04 10:21 | XMS REPORT ---
Author Author Anton SWANN [facility] Address [address] [place] [address] Phone Unavailable Care Team Providers Care Return To Factory Clerk Name Role Phone MIKE SWANN Unavailable Unavailable PROBLEMS Type Condition ICD9-CM Code AWW44-[place] Code Onset Dates Condition S tatus SNOMED Code Problem Urinary incontinence, unspecified type R32 Active 494469487 Problem Developmental disorder F89 Active 9142559 Problem Nicotine abuse Z72.0 Active 74419 008 Problem Hyperlipidemia, unspecified hyperlipidemia E78.5 Active 84861004 Problem Anxiety F41.9 Active 09244221 Problem Essential hypertension I10 Active 32332132 ALLERGIES No Known Allergies ENCOUNTERS Encounter Location Date Diagnosis [place] [id number] [place] [id number] [place] [phone] Jan, [facility] [id number] [place] [phone] Dec, [facility] [address] [phone] 14 Nov, 2017 Essential hypertension I10 ; Hyperlipidemia, unspecified hyperlipidemia E78.5 ; Nicotine abuse Z72.0 and Bilateral impacted cerumen H61.23 [facility] [id number] [place] [phone] Oct, [facility] [address] [address] [id number] [address] [place] [address] [phone] Sep, Encounter for dental exam an d cleaning w/o abnormal findings Z01.20 [facility] [address] [phone] 11 Sep, 2017 Medicare annual wellness vis it, initial Z00.00 and Encounter for immunization Z23 [place] [id number] [place] [phone] 28 Nov, 2017 Encounter for immunization Z 23 ; Developmental disorder F89 and Anxiety F41.9 [facility] [address] [id number] [address] [place] [address] [id number] 13 Jun, 2017 Encounter for dental examina tion and cleaning without abnormal findings Z01.20 [facility] [address] [id number] [address] [place] [phone] 27 Apr, 2017 Anxiety F41.9 and Developmen oscar disorder F89 [facility] [address] [id number] [address] [place] [phone] Apr, Essential hypertension I10 a nd Nicotine abuse Z72.[id number] [place] [address] [phone] Mar, Dental examination Z01.20 [facility] [address] [id number] [address] [place] [address] [phone] Mar, Encounter for dental examina tion and cleaning without abnormal findings Z01.20 [facility] [address] [facility] [id number] [address] [place] [phone] Jan, [facility] [address] [facility] [id number] [address] [place] [phone] Dec, Developmental disorder F89 a nd Anxiety F41.9 [facility] [address] [id number] [address] [place] [address] [phone] Dec, Encounter for dental examina tion and cleaning without abnormal findings Z01.20 [facility] [address] [facility] [id number] [address] [place] [phone] Sep, Encounter for immunization Z 23 [facility] [address] [facility] [id number] [address] [place] [phone] Sep, Prostate cancer screening Z1 2.5 and Hyperlipidemia, unspecified hyperlipidemia E78.5 [facility] [address] [facility] [id number] [address] [place] [phone] Sep, Annual physical exam Z00.00 ; Encounter for immunization Z23 ; Essential hypertension I10 ; Hyperlipidemia, unspecified hyperlipidemia E78.5 ; Anxiety F41.9 ; Prostate cancer screening Z12.5 and Nicotine abuse Z72.0 [facility] [address] [facility] [id number] [address] [place] [phone] Aug, [facility] [address] [facility] [id number] [address] [place] [phone] Jul, Urinary incontinence, unspec ified type R32 [facility] [address] [facility] [id number] [address] [place] [address] [id number] Jul, Dental examination Z01.20 [facility] [address] [facility] [id number] [address] [place] [phone] Jul, Urinary incontinence, unspec ified type R32 [facility] [address] [facility] [id number] [address] [place] [phone] Jul, Anxiety F41.9 and Developmen oscar disorder F89 [facility] [id number] [place] [address] [phone] May, Dental examination Z01.[address] [id number] [place] [address] [phone] Apr, Encounter for dental examination Z01.20 [facility] [id number] [place] [address] [phone] Apr, Encounter for dental examina tion and cleaning without abnormal findings Z01.20 [facility] [address] [facility] [id number] [address] [place] [phone] Mar, Developmental disorder F89 a nd Anxiety F41.9 [facility] [address] [facility] [id number] [address] [place] [address] [phone] February, Dental examination Z01.20 [facility] [address] [facility] [id number] [address] [place] [phone] February, Essential hypertension I10 [facility] [address] [facility] [id number] [address] [place] [phone] February, Arthralgia M25.50 [facility] [address] [id number] [address] [place] [address] [phone] Jan, Encounter for dental examina tion and cleaning without abnormal findings Z01.20 [facility] [address] [place] [address] [id number] [address] [place] [phone] Dec, [facility] [address] [id number] [address] [place] [phone] Nov, Anxiety F41.9 and Developmen oscar disorder F89 [facility] [address] [place] [address] [id number] [address] [place] [phone] 17 Nov, 2015 [facility] [address] [phone] Nov, [facility] [address] [place] [id number] [place] [phone] Oct, Hyperlipidemia, unspecified hyperlipidemia E78.5 [place] [address] [id number] [place] [phone] Oct, Essential hypertension I10 ; Hyperlipidemia, unspecified hyperlipidemia E78.5 and Prostate cancer screening Z12.5 [facility] [address] [phone] Oct, Essential hypertension I10 ; Hyperlipidemia, unspecified hyperlipidemia E78.5 ; Nicotine abuse Z72.0 ; Anxiety F41.9 ; Developmental disorder F89 and Prostate cancer screening Z12.5 [facility] [address] [place] [phone] 24 Aug, 2015 Anxiety F41.9 and Developmen oscar disorder F89 [facility] [address] [id number] [address] [place] [phone] 17 Aug, 2015 Essential hypertension I10 a nd Encounter for immunization Z23 [facility] [address] [place] [id number] [address] [place] [phone] 04 Aug, 2015 Prostate cancer screening Z1 2.5 [facility] [address] [id number] [place] [phone] Jun, Hypertension 401.9 [facility] [address] [id number] [address] [place] [phone] Jun, [facility] [address] 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 [id number] [address] [place] [phone] Mar, Hypertension 401.9 [facility] [address] [id number] [address] [place] [address] [phone] Mar, Dental examination V72.2 [facility] [address] [facility] [id number] [address] [place] [phone] February, Hypertension 401.9 and Hyper lipidemia 272.4 [facility] [address] [facility] [id number] [address] [place] [phone] February, [facility] [address] 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 [id number] [address] [place] [phone] Jan, [facility] [address] [facility] [id number] [address] [place] [phone] Jan, [facility] [address] [facility] [id number] [address] [place] [phone] Dec, [facility] [address] [facility] [id number] [address] [place] [phone] Dec, [facility] [address] [facility] [id number] [address] [place] [phone] Dec, [facility] [address] [facility] [id number] [address] [place] [phone] Dec, [facility] [address] [id number] [address] [place] [address], [place] [address] Dec, [facility] [address] [id number] [address] [place] [address], [place] [address] 16 Dec, 2014 [facility] [address] [id number] [address] [place] [address], [place] [address] Dec, [facility] [address] [id number] [address] [place] [address], [place] [address] Dec, [facility] [address] [id number] [address] [place] [address], [place] [address] Nov, [facility] [address] [id number] [address] [place] [address], [place] [address] Nov, [facility] [address] [id number] [address] [place] [address], [place] [address] Nov, [facility] [address] [id number] [address] [place] [address], [place] [address] Nov, [facility] [address] [id number] [address] [place] [address], [place] [address] Nov, [facility] [address] [id number] [address] [place] [address], [place] [address] 18 Nov, 2014 [facility] [address] [id number] [address] [place] [address], [place] [address] 17 Nov, 2014 [facility] [address] [id number] [address] [place] [phone] Nov, [facility] [address] [id number] [address] [place] [phone] Oct, [facility] [address] [id number] [address] [place] [phone] Oct, [facility] [address] [id number] [address] [place] [phone] Oct, [facility] [address] [id number] [address] [place] [address], [place] [address] Oct, [facility] [address] [id number] [address] [place] [address], [place] [address] Oct, [facility] [address] [id number] [address] [place] [address], [place] [address] Oct, [facility] [address] [id number] [address] [place] [address], [place] [address] Sep, [facility] [address] [id number] [address] [place] [address], [place] [address] Sep, [facility] [address] [id number] [address] [place] [address], [place] [address] Sep, [facility] [address] [id number] [address] [place] [address], [place] [address] Sep, [facility] [address] [id number] [address] [place] [address], [place] [address] Sep, [facility] [address] [id number] [address] [place] [address], [place] [address] Sep, [facility] [address] [id number] [address] [place] [address], [place] [address] Aug, [facility] [address] [id number] [address] [place] [address], [place] [address] Aug, [facility] [address] [id number] [address] [place] [address], [place] [address] Aug, [facility] [address] [id number] [address] [place] [address], [place] [address] Aug, [facility] [address] [id number] [address] [place] [address], [place] [address] Jul, [facility] [address] [id number] [address] [place] [address], [place] [address] Jul, [facility] [address] [id number] [address] [place] [address], [place] [address] May, [facility] [address] [id number] [address] [place] [address], [place] [address] May, [facility] [address] [id number] [address] [place] [address], [place] [address] Apr, [facility] [address] [id number] [address] [place] [address], [place] [address] Apr, [facility] [address] [id number] [address] [place] [address], [place] [address] Mar, [facility] [address] [id number] [address] [place] [address], [place] [address] Mar, [facility] [address] [id number] [address] [place] [address], [place] [address] Mar, [facility] [address] [id number] [address] [place] [address], [place] [address] Mar, [facility] [address] [id number] [address] [place] [address], [place] [address] February, [facility] [address] [id number] [address] [place] [address], [place] [address] February, [facility] [address] [id number] [address] [place] [address], [place] [address] Jan, [facility] [address] [id number] [address] [place] [address], [place] [address] Jan, [facility] [address] [id number] [address] [place] [address], [place] [address] Oct, [facility] [address] [id number] [address] [place] [address], [place] [address] Oct, [facility] [address] [id number] [address] [place] [address], [place] [address] Oct, [facility] [address] [id number] [address] [place] [address], [place] [address] Oct, [facility] [address] [id number] [address] [place] [address], [place] [address] 30 Oct, 2013 [facility] [address] [id number] [address] [place] [address], [place] [address] Oct, [facility] [address] [id number] [address] [place] [address], [place] [address] Oct, [facility] [address] [id number] [address] [place] [address], [place] [address] Oct, [facility] [address] [id number] [address] [place] [address], [place] [address] Oct, [facility] [address] [id number] [address] [place] [address], [place] [address] Dec, [facility] [address] [id number] [address] [place] [address], [place] [address] Sep, [facility] [address] [id number] [address] [place] [address], [place] [address] Sep, [facility] [address] [id number] [address] [place] [address], [place] [address] May, [facility] [address] [id number] [address] [place] [address], [place] [address] Apr, [facility] [address] [id number] [address] [place] [address], [place] [address] Apr, [facility] [address] [id number] [address] [place] [address], [place] [address] Apr, [facility] [address] [id number] [id number] February, [facility] [address] [id number] [address] [place] [address], [place] [address] Jan, [facility] [address] [id number] [address] [place] [address], [place] [address] Dec, [facility] [address] [id number] [address] [place] [address], [place] [address] Sep, [facility] [address] [id number] [address] [place] [address] Sep, [facility] [address] [id number] [address] [place] [address] 29 Aug, 2011 [facility] [address] [id number] [address] [place] [address] Aug, [facility] [address] [id number] [address] [place] [address] Jul, [facility] [address] [id number] [address] [place] [address] 17 Mar, 2011 [facility] [address] [facility] [id number] [address] [place] [phone] 15 Mar, 2011 [facility] [address] [facility] [id number] [address] [place] [address] Mar, IMMUNIZATIONS No Known Immunizations SOCIAL HISTORY Never Assessed REASON FOR VISIT ADULT OUTREACH [facility] PLAN OF CARE Activity Details Follow Up 3 Months Reason:ON SITE RECA LL VITAL SIGNS MEDICATIONS Unknown Medications RESULTS No Results PROCEDURES Procedure Date Ordered Result Body Site PROPHYLAXIS - ADULT April 14, 2017 INSTRUCTIONS MEDICATIONS ADMINISTERED No Known Medications MEDICAL (GENERAL) HISTORY Type Description Date Medical History hyperlipidemia Medical History hypertension Medical History mood disorder Medical History mild mental retardation Medical History insomnia Medical History anxiety Medical History Asperger's Surgical History laser eye surgery
--- OUTSIDE RECORDS SUMMARY | 2020-01-04 10:21 | XMS REPORT ---
Author Author Anton SWANN Organization [employer] Address Unknown Phone Unavailable Care Team Providers Care Design Verification Engineer Name Role Phone MIKE SWANN CP Unavailable Allergies, Adverse Reactions, Alerts Substance Reaction Event Type N.K.D.A. Info Not Available Non Drug Allergy Problems Problem Type Condition Code Onset Dates Condition Statu s Problem Anxiety F41.9 Active Problem Nicotine abuse Z72.0 Active Problem Developmental disorder F89 Activ e Assessment Encounter for dental examina tion and cleaning without abnormal findings Z01.20 Active Problem Essential hypertension I10 Activ e Problem Hyperlipidemia, unspecified hyperlipidemia E78.5 Active Medications No Known Medications Procedures Procedure Coding System Code Date TOPICAL FLUORIDE VARNISH CPT-4 D1206 April PROPHYLAXIS - ADULT CPT-4 D1110 May 06 6 Results No Known Results Summary Purpose [employer] Submission
--- OUTSIDE RECORDS SUMMARY | 2020-01-04 10:21 | XMS REPORT ---
Author Author Anton GOLDMAN Organization [employer] Address Unknown Phone Unavailable Care Team Providers Care Cardiac Monitor Name Role Phone GLORIA GOLDMAN CP Unavailable Allergies, Adverse Reactions, Alerts Substance Reaction Event Type N.K.D.A. Info Not Available Non Drug Allergy Problems Problem Type Condition Code Onset Dates Condition Statu s Problem Developmental disorder F89 Activ e Problem Anxiety F41.9 Active Problem Urinary incontinence, unspecified type R32 Active Problem Hyperlipidemia, unspecified hyperlipidemia E78.5 Active Assessment Dental examination Z01.20 Active Problem Nicotine abuse Z72.0 Active Problem Essential hypertension I10 Activ e Medications Medication Code System Code Instructions Start Date End Date Status Dosage HydrOXYzine Pamoate [facility] [address]-15 25 MG 1 capsule in the am, 2pm, and at bedtime Orally Toprol XL [facility] [address]-99 50 mg Orally 2 times a day Jul 23, 2015 1 tablet Lisinopril [facility] [address]-92 40 mg Orally Once a day 1 tablet Atorvastatin Calcium [facility] [address]-32 20 MG Orally Once a day 1 tablet Risperidone [facility] 43462804573 1 MG TAKE 1 T ABLET ORALLY TWICE A DAY FOR ANGER/AGGRESSION Travatan Z [facility] [address]-73 0.004 % Ophthalmic Once a day 1 drop into affected eye in the evening Procedures Procedure Coding System Code Date Dental no charge CPT-4 D0099 Aug 18, 2016 Vital Signs Date/Time: Aug 18, 2016 Blood Pressure Diastolic 89 mmHg Blood Pressure Systolic 147 mmHg Results No Known Results Summary Purpose [employer] Submission
--- OUTSIDE RECORDS SUMMARY | 2020-01-04 10:21 | XMS REPORT ---
Author Author Anton FAY Organization [facility] Address [address] [place] [address] Care Team Providers Care Layout Inspector Name Role Phone TWAN FAY Unavailable PROBLEMS Type Condition ICD9-CM Code PDI23-QD Code Onset Dates Condition S tatus SNOMED Code Problem Urinary incontinence, unspecified type R32 Active 468757087 Problem Developmental disorder F89 Active 8828351 Problem Nicotine abuse Z72.0 Active 37885 008 Problem Hyperlipidemia, unspecified hyperlipidemia E78.5 Active 83078751 Problem Anxiety F41.9 Active 45728580 Problem Essential hypertension I10 Active [id number] ALLERGIES No Known Allergies ENCOUNTERS Encounter Location Date Diagnosis [place] [address] [facility] [id number] [address] [place] [phone] Apr, [place] [address] [facility] [id number] [address] [place] [phone] Apr, [id number] [place] [address] [phone] Apr, [facility] [address] [facility] [id number] [address] [place] [address] [phone] Jan, Dental examination Z01.20 [place] [address] [facility] [id number] [address] [place] [phone] Dec, Developmental disorder F89 a nd Anxiety F41.9 [place] [address] [facility] [id number] [address] [place] [phone] 14 Nov, 2017 Essential hypertension I10 ; Hyperlipidemia, unspecified hyperlipidemia E78.5 ; Nicotine abuse Z72.0 and Bilateral impacted cerumen H61.23 [place] [address] [facility] [id number] [address] [place] [phone] Oct, [facility] [address] [id number] [address] [place] [address] [phone] Sep, Encounter for dental exam an d cleaning w/o abnormal findings Z01.20 [facility] [address] [facility] [id number] [address] [place] [phone] 11 Sep, 2017 Medicare annual wellness vis it, initial Z00.00 and Encounter for immunization Z23 [facility] [address] [facility] [id number] [address] [place] [phone] 28 Aug, 2017 Encounter for immunization Z 23 ; Developmental disorder F89 and Anxiety F41.9 [facility] [address] [facility] [id number] [address] [place] [address] [id number] 13 Jun, 2017 Encounter for dental examina tion and cleaning without abnormal findings Z01.20 [facility] [address] [facility] [id number] [address] [place] [phone] Apr, Anxiety F41.9 and Developmen oscar disorder F89 [facility] [address] [facility] [id number] [address] [place] [phone] Apr, Essential hypertension I10 a nd Nicotine abuse Z72.[id number] [place] [address] [phone] Mar, Dental examination Z01.20 [facility] [address] [facility] [id number] [address] [place] [address] [id number] Mar, Encounter for dental examina tion and cleaning without abnormal findings Z01.20 [facility] [address] [facility] [id number] [address] [place] [phone] Jan, [facility] [address] [facility] [id number] [address] [place] [phone] Dec, Developmental disorder F89 a nd Anxiety F41.9 [facility] [address] [id number] [address] [place] [address] [id number] 15 Dec, 2016 Encounter for dental examina tion and cleaning without abnormal findings Z01.20 [facility] [address] [facility] [id number] [address] [place] [phone] 15 Sep, 2016 Encounter for immunization Z 23 [facility] [address] [facility] [id number] [address] [place] [phone] 08 Sep, 2016 Prostate cancer screening Z1 2.5 and Hyperlipidemia, unspecified hyperlipidemia E78.5 [facility] [address] [facility] [id number] [address] [place] [phone] 06 Sep, 2016 Annual physical exam Z00.00 ; Encounter for immunization Z23 ; Essential hypertension I10 ; Hyperlipidemia, unspecified hyperlipidemia E78.5 ; Anxiety F41.9 ; Prostate cancer screening Z12.5 and Nicotine abuse Z72.0 [facility] [address] [facility] [id number] [address] [place] [phone] Aug, [facility] [address] [facility] [id number] [address] [place] [phone] Jul, Urinary incontinence, unspec ified type R32 [facility] [id number] [place] [address] [phone] Jul, Dental examination Z01.20 [facility] [address] [facility] [id number] [address] [place] [phone] Jul, Urinary incontinence, unspec ified type R32 [facility] [address] [facility] [id number] [address] [place] [phone] Jul, Anxiety F41.9 and Developmen oscar disorder F89 [facility] [address] [id number] [address] [place] [address] [phone] May, Dental examination Z01.[address] [place] [id number] [facility] [id number] [place] [address] [id number] Apr, Encounter for dental examination Z01.20 [facility] [address] [id number] [address] [place] [address] [id number] Apr, Encounter for dental examina tion and cleaning without abnormal findings Z01.20 [facility] [address] [facility] [id number] [address] [place] [phone] Mar, Developmental disorder F89 a nd Anxiety F41.9 [facility] [address] [facility] [id number] [address] [place] [address] [id number] February, Dental examination Z01.20 [facility] [address] [place] [id number] [address] [place] [phone] February, Essential hypertension I10 [facility] [address] [facility] [id number] [place] [phone] February, Arthralgia M25.50 [facility] [address] [id number] [address] [place] [address] [phone] Jan, Encounter for dental examina tion and cleaning without abnormal findings Z01.20 [facility] [address] [place] [id number] [address] [place] [phone] Dec, [facility] [address] [place] [id number] [place] [phone] Nov, Anxiety F41.9 and Developmen oscar disorder F89 [facility] [address] [place] [id number] [address] [place] [phone] Nov, [facility] [address] [phone] Nov, [facility] [address] [place] [id number] [address] [place] [phone] Oct, Hyperlipidemia, unspecified hyperlipidemia E78.5 [facility] [address] [place] [id number] [address] [place] [phone] Oct, Essential hypertension I10 ; Hyperlipidemia, unspecified hyperlipidemia E78.5 and Prostate cancer screening Z12.5 [facility] [address] [place] [id number] [address] [place] [phone] 11 Oct, 2015 Essential hypertension I10 ; Hyperlipidemia, unspecified hyperlipidemia E78.5 ; Nicotine abuse Z72.0 ; Anxiety F41.9 ; Developmental disorder F89 and Prostate cancer screening Z12.5 [facility] [address] [place] [id number] [address] [place] [phone] Aug, Anxiety F41.9 and Developmen oscar disorder F89 [facility] [address] [place] [id number] [address] [place] [phone] Aug, Essential hypertension I10 a nd Encounter for immunization Z23 [facility] [address] [place] [id number] [address] [place] [phone] 04 Aug, 2015 Prostate cancer screening Z1 2.5 [facility] [address] [place] [id number] [address] [place] [phone] Jun, Hypertension 401.9 [facility] [address] [place] [id number] [place] [phone] Jun, [facility] [address] [place] [id number] [place] [phone] May, Impulse control disorder, un specified 312.30 ; Generalized anxiety disorder 300.02 ; Other specified pervasive developmental disorders, 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 and 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 [facility] [id number] [place] [phone] Mar, Hypertension 401.9 [facility] [address] [place] [id number] [address] [place] [address] [id number] Mar, Dental examination V72.2 [facility] [address] [place] [id number] [address] [place] [phone] February, Hypertension 401.9 and Hyper lipidemia 272.4 [facility] [address] [place] [id number] [address] [place] [phone] February, [facility] [address] [place] [id number] [address] [place] [phone] February, Generalized anxiety disorder 300.02 ; Impulse control disorder 312.30 ; 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 and Benign essential HTN 401.1 [facility] [address] [place] [id number] [address] [place] [phone] Jan, [facility] [address] [place] [id number] [address] [place] [phone] 13 Jan, 2015 [facility] [address] [id number] [address] [place] [address], [place] [id number] 18 Dec, 2014 [facility] [address] [id number] [address] [place] [address], [place] [id number] 18 Dec, 2014 [facility] [address] [id number] [address] [place] [address], [place] [id number] 17 Dec, 2014 [facility] [address] [id number] [address] [place] [address], [place] [id number] 17 Dec, 2014 [facility] [address] [id number] [address] [place] [address], [place] [id number] 16 Dec, 2014 [facility] [address] [id number] [address] [place] [address], [place] [id number] 16 Dec, 2014 [facility] [address] [id number] [address] [place] [address], [place] [id number] 09 Dec, 2014 [facility] [address] [id number] [address] [place] [phone] 09 Dec, 2014 [facility] [address] [id number] [address] [place] [address], [place] [address] 20 Nov, 2014 [facility] [address] [id number] [address] [place] [address], [place] [id number] 20 Nov, 2014 [facility] [address] [id number] [address] [place] [address], [place] [address] 19 Nov, 2014 [facility] [address] [id number] [address] [place] [phone] 19 Nov, 2014 [facility] [address] [id number] [address] [place] [address], [place] [address] 18 Nov, 2014 [facility] [address] [id number] [address] [place] [address], [place] [id number] 18 Nov, 2014 [facility] [address] [id number] [address] [place] [address], [place] [id number] 17 Nov, 2014 [facility] [address] [id number] [address] [place] [address], [place] [address] Nov, [facility] [address] [id number] [address] [place] [address], [place] [id number] Oct, [facility] [address] [id number] [address] [place] [address], [place] [id number] Oct, [facility] [address] [id number] [address] [place] [address], [place] [id number] Oct, [facility] [address] [id number] [address] [place] [address], [place] [id number] Oct, [facility] [address] [id number] [address] [place] [address], [place] [id number] Oct, [facility] [address] [id number] [address] [place] [address], [place] [address] Oct, [facility] [address] [id number] [address] [place] [address], [place] [id number] Sep, [facility] [address] [id number] [address] [place] [address], [place] [id number] Sep, [facility] [address] [id number] [address] [place] [address], [place] [id number] Sep, [facility] [address] [id number] [address] [place] [address], [place] [id number] Sep, [facility] [address] [id number] [address] [place] [address], [place] [id number] Sep, [facility] [address] [id number] [address] [place] [address], [place] [id number] Sep, [facility] [address] [id number] [address] [place] [address], [place] [id number] Aug, [facility] [address] [id number] [address] [place] [address], [place] [address] Aug, [facility] [address] [id number] [address] [place] [address], [place] [id number] Aug, [facility] [address] [id number] [address] [place] [address], [place] [id number] Aug, [facility] [address] [id number] [address] [place] [address], [place] [address] Jul, [facility] [address] [id number] [address] [place] [address], [place] [address] Jul, [facility] [address] [id number] [address] [place] [address], [place] [id number] May, [facility] [address] [id number] [address] [place] [address], [place] [address] May, [facility] [address] [id number] [address] [place] [address], [place] [address] Apr, [facility] [address] [id number] [address] [place] [address], [place] [address] Apr, [facility] [address] [id number] [address] [place] [address], [place] [id number] Mar, [facility] [address] [id number] [address] [place] [address], [place] [address] Mar, [facility] [address] [id number] [address] [place] [address], [place] [address] Mar, [facility] [address] [id number] [address] [place] [address], [place] [address] Mar, [facility] [address] [id number] [address] [place] [address], [place] [address] February, [facility] [address] [id number] [address] [place] [address], [place] [address] February, [facility] [address] [id number] [address] [place] [address], [place] [address] Jan, [facility] [address] [id number] [address] [place] [address], [place] [address] Jan, [facility] [address] [id number] [address] [place] [address], [place] [address] Oct, [facility] [address] [id number] [address] [place] [address], [place] [address] Oct, [facility] [address] [id number] [address] [place] [address], [place] [address] Oct, [facility] [address] [id number] [address] [place] [address], [place] [address] Oct, [facility] [address] [id number] [address] [place] [address], [place] [address] Oct, [facility] [address] [id number] [address] [place] [address], [place] [address] Oct, [facility] [address] [id number] [address] [place] [address], [place] [address] Oct, [facility] [address] [id number] [address] [place] [address], [place] [address] Oct, [facility] [address] [id number] [address] [place] [address], [place] [address] Oct, [facility] [address] [id number] [address] [place] [address], [place] [id number] Dec, [facility] [address] [id number] [address] [place] [address], [place] [address] Sep, [facility] [address] [id number] [address] [place] [address], [place] [address] Sep, [facility] [address] [id number] [address] [place] [address], [place] [address] May, [facility] [address] [id number] [address] [place] [address], [place] [address] Apr, [facility] [address] [id number] [address] [place] [address], [place] [address] Apr, [facility] [address] [id number] [address] [place] [address], [place] [address] Apr, [facility] [address] [id number] [id number] February, [facility] [address] [id number] [address] [place] [phone] Jan, [facility] [address] [id number] [address] [place] [phone] Dec, [facility] [address] [id number] [address] [place] [phone] Sep, [facility] [address] [id number] [address] [place] [id number] Sep, [facility] [address] [id number] [address] [place] [id number] Aug, [facility] [address] [id number] [address] [place] [id number] Aug, [facility] [address] [id number] [address] [place] [id number] Jul, [facility] [address] [id number] [address] [place] [phone] Mar, [facility] [address] [id number] [address] [place] [id number] Mar, [facility] [address] [id number] [address] [place] [id number] Mar, IMMUNIZATIONS Vaccine Route Administration Date Status TDAP (BOOSTRIX) IM Intramuscular Oct 04, 2017 Administered SOCIAL HISTORY Never Assessed REASON FOR VISIT medicare physical-Shibilly [place] PLAN OF CARE Activity Details Follow Up annually for preventive care , sooner for chronic health maintenance, prn Reason: VITAL SIGNS Height 68 in 2017-10-04 Weight 185.2 lbs 2017-10-04 Temperature 99.1 degrees Fahrenheit 2017-10-04 Heart Rate 64 bpm 2017-10-04 Respiratory Rate 18 2017-10-04 BMI 28.16 kg/m2 2017-10-04 Blood pressure systolic 138 mmHg 2017-10-04 Blood pressure diastolic 84 mmHg 2017-10-04 MEDICATIONS Medication Instructions Dosage Frequency Start Date End Date Duration S tatus Travatan Z 0.004 % Ophthalmic Once a day 1 drop into affect ed eye in the evening 24h Active Lisinopril 40 mg Orally Once a day 1 tablet 24h 31 Active Risperidone 1 MG TAKE 1 TABLET ORALLY TWICE A DAY FOR ANGER/ AGGRESSION Active HydrOXYzine Pamoate 25 MG 1 capsule in the am, 2pm, and at bedtime Orally 30 Active Toprol XL 50 mg Orally 2 times a day 1 tablet 12h 29 Jun, 2015 31 Active Atorvastatin Calcium 20 MG Orally Once a day 1 tablet 24h 31 Active RESULTS Name Result Date Reference Range COLOGUARD (OUTSIDE ORDER) 2017-10-28 PROCEDURES Procedure Date Ordered Result Body Site ANNUAL NATHALIA VST; PERSNL PPS INIT Oct 04, 2017 TDAP (BOOSTRIX) Oct 04, 2017 SINGLE IMMUNIZATION ADMIN Oct 04, 2017 INSTRUCTIONS MEDICATIONS ADMINISTERED No Known Medications MEDICAL (GENERAL) HISTORY Type Description Date Medical History hyperlipidemia Medical History hypertension Medical History mood disorder Medical History mild mental retardation Medical History insomnia Medical History anxiety Medical History Asperger's Surgical History laser eye surgery
--- OUTSIDE RECORDS SUMMARY | 2020-01-04 10:21 | XMS REPORT ---
Author Author Anton SWANN [facility] Address [address] [place] [address] Phone Unavailable Care Team Providers Care Librarian Head Name Role Phone MIKE SWANN Unavailable Unavailable PROBLEMS Type Condition ICD9-CM Code [id number] Code Onset Dates Condition S tatus SNOMED Code Problem Urinary incontinence, unspecified type R32 Active 313760709 Problem Developmental disorder F89 Active 9724268 Problem Nicotine abuse Z72.0 Active 18980 008 Problem Hyperlipidemia, unspecified hyperlipidemia E78.5 Active 79887132 Problem Anxiety F41.9 Active 39376694 Problem Essential hypertension I10 Active 97346997 ALLERGIES No Known Allergies ENCOUNTERS Encounter Location Date Diagnosis [facility] [address] [id number] [address] [place] [address] Apr, [facility] [address] [id number] [address] [place] [address] Apr, [id number] [place] [address] [phone] Apr, [facility] [address] [id number] [address] [place] [address] [phone] Jan, Dental examination Z01.20 [facility] [address] [id number] [address] [place] [address] Dec, Developmental disorder F89 a nd Anxiety F41.9 [facility] [address] [facility] [id number] [address] [place] [address] 14 Nov, 2017 Essential hypertension I10 ; Hyperlipidemia, unspecified hyperlipidemia E78.5 ; Nicotine abuse Z72.0 and Bilateral impacted cerumen H61.23 [facility] [address] [facility] [id number] [address] [place] [address] Oct, [facility] [id number] [place] [address] [phone] Sep, Encounter for dental exam an d cleaning w/o abnormal findings Z01.20 [facility] [address] [facility] [id number] [address] [place] [address] 11 Sep, 2017 Medicare annual wellness vis it, initial Z00.00 and Encounter for immunization Z23 [facility] [address] [id number] [address] [place] [address] Aug, Encounter for immunization Z 23 ; Developmental disorder F89 and Anxiety F41.9 [facility] [address] [id number] [address] [place] [phone] Jun, Encounter for dental examina tion and cleaning without abnormal findings Z01.20 [facility] [address] [id number] [address] [place] [address] Apr, Anxiety F41.9 and Developmen oscar disorder F89 [facility] [address] [facility] [id number] [address] [place] [address] Apr, Essential hypertension I10 a nd Nicotine abuse Z72.[address] [id number] [phone] Mar, Dental examination Z01.20 [facility] [address] [id number] [address] [place] [address] [phone] Mar, Encounter for dental examina tion and cleaning without abnormal findings Z01.20 [facility] [address] [id number] [address] [place] [phone] Jan, [facility] [address] [id number] [address] [place] [address] Dec, Developmental disorder F89 a nd Anxiety F41.9 [facility] [address] [id number] [address] [place] [address] [phone] Dec, Encounter for dental examina tion and cleaning without abnormal findings Z01.20 [facility] [address] [id number] [address] [place] [address] Sep, Encounter for immunization Z 23 [facility] [address] [facility] [id number] [address] [place] [phone] 08 Sep, 2016 Prostate cancer screening Z1 2.5 and Hyperlipidemia, unspecified hyperlipidemia E78.5 [facility] [address] [facility] [id number] [address] [place] [address] Sep, Annual physical exam Z00.00 ; Encounter for immunization Z23 ; Essential hypertension I10 ; Hyperlipidemia, unspecified hyperlipidemia E78.5 ; Anxiety F41.9 ; Prostate cancer screening Z12.5 and Nicotine abuse Z72.0 [facility] [address] [facility] [id number] [address] [place] [phone] Aug, [address] [facility] [id number] [address] [place] [address] Jul, Urinary incontinence, unspec ified type R32 [facility] [id number] [place] [address] [id number] Jul, Dental examination Z01.20 [facility] [address] [facility] [id number] [address] [place] [address] Jul, Urinary incontinence, unspec ified type R32 [facility] [address] [facility] [id number] [address] [place] [address] Jul, Anxiety F41.9 and Developmen oscar disorder F89 [facility] [address] [id number] [address] [place] [address] [phone] May, Dental examination Z01.[id number] [place] [address] [phone] Apr, Encounter for dental examination Z01.20 [facility] [id number] [place] [address] [phone] Apr, Encounter for dental examina tion and cleaning without abnormal findings Z01.20 [facility] [address] [facility] [id number] [address] [place] [address] Mar, Developmental disorder F89 a nd Anxiety F41.9 [facility] [address] [id number] [address] [place] [address] [phone] February, Dental examination Z01.20 [facility] [address] [id number] [address] [place] [address] February, Essential hypertension I10 [facility] [address] [facility] [id number] [address] [place] [address] February, Arthralgia M25.50 [facility] [address] [id number] [address] [place] [address] [phone] Jan, Encounter for dental examina tion and cleaning without abnormal findings Z01.20 [facility] [address] [id number] [address] [place] [address] Dec, [facility] [id number] [place] [address] Nov, Anxiety F41.9 and Developmen oscar disorder F89 [facility] [address] [id number] [address] [place] [address] Nov, [facility] [address] [id number] [address] [place] [address] Nov, [facility] [address] [address] Oct, Hyperlipidemia, unspecified hyperlipidemia E78.5 [facility] [address] [id number] [address] [place] [address] Oct, Essential hypertension I10 ; Hyperlipidemia, unspecified hyperlipidemia E78.5 and Prostate cancer screening Z12.5 [facility] [address] [facility] [id number] [address] [place] [address] Oct, Essential hypertension I10 ; Hyperlipidemia, unspecified hyperlipidemia E78.5 ; Nicotine abuse Z72.0 ; Anxiety F41.9 ; Developmental disorder F89 and Prostate cancer screening Z12.5 [facility] [address] [facility] [id number] [address] [place] [phone] Aug, Anxiety F41.9 and Developmen oscar disorder F89 [facility] [address] [id number] [address] [place] [phone] 17 Aug, 2015 Encounter for immunization Z 23 and Essential hypertension I10 [facility] [address] [id number] [address] [place] [phone] 04 Aug, 2015 Prostate cancer screening Z1 2.5 [facility] [address] [id number] [address] [place] [phone] 29 Jun, 2015 Hypertension 401.9 [facility] [address] [id number] [address] [place] [phone] 18 Jun, 2015 [facility] [address] [address] May, Impulse control disorder, un specified 312.30 ; Generalized anxiety disorder 300.02 ; Other specified pervasive developmental disorders, 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 and 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 [facility] [address] [id number] [address] [place] [address] Mar, Hypertension 401.9 [facility] [address] [id number] [address] [place] [address] [phone] Mar, Dental examination V72.2 [facility] [address] [id number] [address] [place] [address] February, Hypertension 401.9 and Hyper lipidemia 272.4 [facility] [address] [place] [address] February, [facility] [address] [id number] [address] [place] [address] February, Generalized anxiety disorder 300.02 ; Impulse control disorder 312.30 ; 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 and Benign essential HTN 401.1 [facility] [address] [id number] [address] [place] [phone] Jan, [facility] [address] [id number] [address] [place] [phone] Jan, [facility] [address] [id number] [address] [place] [address], [place] [address] 18 Dec, 2014 [facility] [address] [id number] [address] [place] [address], [place] [address] 18 Dec, 2014 [facility] [address] [id number] [address] [place] [address], [place] [address] 17 Dec, 2014 [facility] [address] [id number] [address] [place] [address], [place] [address] 17 Dec, 2014 [facility] [address] [id number] [address] [place] [address], [place] [address] 16 Dec, 2014 [facility] [address] [id number] [address] [place] [address], [place] [address] 16 Dec, 2014 [facility] [address] [id number] [address] [place] [address], [place] [address] 09 Dec, 2014 [facility] [address] [id number] [address] [place] [address], [place] [address] 09 Dec, 2014 [facility] [address] [id number] [address] [place] [address], [place] [address] 20 Nov, 2014 [facility] [address] [id number] [address] [place] [address], [place] [address] 20 Nov, 2014 [facility] [address] [id number] [address] [place] [address], [place] [address] 19 Nov, 2014 [facility] [address] [id number] [address] [place] [address], [place] [address] 19 Nov, 2014 [facility] [address] [id number] [address] [place] [address], [place] [address] 18 Nov, 2014 [facility] [address] [id number] [address] [place] [address], [place] [address] 18 Nov, 2014 [facility] [address] [id number] [address] [place] [phone] 17 Nov, 2014 [facility] [address] [id number] [address] [place] [phone] Nov, [facility] [address] [id number] [address] [place] [address], [place] [address] Oct, [facility] [address] [id number] [address] [place] [address], [place] [address] Oct, [facility] [address] [id number] [address] [place] [address], [place] [address] Oct, [facility] [address] [id number] [address] [place] [address], [place] [address] Oct, [facility] [address] [id number] [address] [place] [address], [place] [address] Oct, [facility] [address] [id number] [address] [place] [address], [place] [address] Oct, [facility] [address] [id number] [address] [place] [address], [place] [address] Sep, [facility] [address] [id number] [address] [place] [address], [place] [address] Sep, [facility] [address] [id number] [address] [place] [address], [place] [address] Sep, [facility] [address] [id number] [address] [place] [address], [place] [address] Sep, [facility] [address] [id number] [address] [place] [address], [place] [address] Sep, [facility] [address] [id number] [address] [place] [address], [place] [address] Sep, [facility] [address] [id number] [address] [place] [address], [place] [address] Aug, [facility] [address] [id number] [address] [place] [address], [place] [address] Aug, [facility] [address] [id number] [address] [place] [address], [place] [address] Aug, [facility] [address] [id number] [address] [place] [address], [place] [address] Aug, [facility] [address] [id number] [address] [place] [address], [place] [address] Jul, [facility] [address] [id number] [address] [place] [address], [place] [address] Jul, [facility] [address] [id number] [address] [place] [address], [place] [address] May, [facility] [address] [id number] [address] [place] [address], [place] [address] May, [facility] [address] [id number] [address] [place] [address], [place] [address] Apr, [facility] [address] [id number] [address] [place] [address], [place] [address] Apr, [facility] [address] [id number] [address] [place] [address], [place] [address] Mar, [facility] [address] [id number] [address] [place] [address], [place] [address] Mar, [facility] [address] [id number] [address] [place] [address], [place] [address] Mar, [facility] [address] [id number] [address] [place] [address], [place] [address] Mar, [facility] [address] [id number] [address] [place] [address], [place] [address] February, [facility] [address] [id number] [address] [place] [address], [place] [address] February, [facility] [address] [id number] [address] [place] [address], [place] [address] Jan, [facility] [address] [id number] [address] [place] [address], [place] [address] Jan, [facility] [address] [id number] [address] [place] [address], [place] [address] Oct, [facility] [address] [id number] [address] [place] [address], [place] [address] Oct, [facility] [address] [id number] [address] [place] [address], [place] [address] Oct, [facility] [address] [id number] [address] [place] [address], [place] [address] Oct, [facility] [address] [id number] [address] [place] [address], [place] [address] Oct, [facility] [address] [id number] [address] [place] [address], [place] [address] Oct, [facility] [address] [id number] [address] [place] [address], [place] [address] Oct, [facility] [address] [id number] [address] [place] [address], [place] [address] Oct, [facility] [address] [id number] [address] [place] [address], [place] [address] Oct, [facility] [address] [id number] [address] [place] [address], [place] [address] Dec, [facility] [address] [id number] [address] [place] [address], [place] [address] Sep, [facility] [address] [id number] [address] [place] [address], [place] [address] Sep, [facility] [address] [id number] [address] [place] [address], [place] [address] May, [facility] [address] [id number] [address] [place] [address], [place] [address] Apr, [facility] [address] [id number] [address] [place] [address], [place] [address] Apr, [facility] [address] [id number] [address] [place] [address], [place] [address] Apr, [facility] [address] [id number] [id number] February, [facility] [address] [id number] [address] [place] [address] Jan, [facility] [address] [id number] [address] [place] [address] Dec, [facility] [address] [id number] [address] [place] [address] Sep, [facility] [address] [id number] [address] [place] [address] Sep, [facility] [address] [id number] [address] [place] [address] Aug, [facility] [address] [id number] [address] [place] [address] Aug, [facility] [address] [id number] [address] [place] [address] Jul, [facility] [address] [id number] [address] [place] [address] Mar, [facility] [address] [id number] [address] [place] [address] Mar, [facility] [address] [id number] [address] [place] [address] Mar, IMMUNIZATIONS No Known Immunizations SOCIAL HISTORY Never Assessed REASON FOR VISIT ADULT OUTREACH [facility] PLAN OF CARE Activity Details Follow Up prn Reason:ON SITE RECALL VITAL SIGNS MEDICATIONS Medication Instructions Dosage Frequency Start Date End Date Duration S tatus Toprol XL 50 mg Orally 2 times a day 1 tablet 12h 29 Jun, 2015 31 Active HydrOXYzine Pamoate 25 MG 1 capsule in the am, 2pm, and at bedtime Orally 30 Active Lisinopril 40 mg Orally Once a day 1 tablet 24h 31 Active Travatan Z 0.004 % Ophthalmic Once a day 1 drop into affect ed eye in the evening 24h Active Atorvastatin Calcium 20 MG Orally Once a day 1 tablet 24h 31 Active Risperidone 1 MG TAKE 1 TABLET ORALLY TWICE A DAY FOR ANGER/ AGGRESSION Active RESULTS No Results PROCEDURES Procedure Date Ordered Result Body Site PROPHYLAXIS - ADULT Oct 20, 2017 TOPICAL FLUORIDE VARNISH Oct 20, 2017 INSTRUCTIONS MEDICATIONS ADMINISTERED No Known Medications MEDICAL (GENERAL) HISTORY Type Description Date Medical History hyperlipidemia Medical History hypertension Medical History mood disorder Medical History mild mental retardation Medical History insomnia Medical History anxiety Medical History Asperger's Surgical History laser eye surgery
--- OUTSIDE RECORDS SUMMARY | 2020-01-04 10:21 | XMS REPORT ---
Author Author Anton JANG [facility] Address [address] [place] [address] Care Team Providers Care Convenience Store Clerk Name Role Phone ERICH JANG Unavailable PROBLEMS Type Condition ICD9-CM Code [id number] Code Onset Dates Condition S tatus SNOMED Code Problem Urinary incontinence, unspecified type R32 Active 784278790 Problem Developmental disorder F89 Active 3389732 Problem Essential hypertension I10 Active 83578497 Problem Hyperlipidemia, unspecified hyperlipidemia E78.5 Active 39978757 Problem Anxiety F41.9 Active 59605591 Problem Nicotine abuse Z72.0 Active 70996 008 ALLERGIES Unknown Allergies SOCIAL HISTORY No smoking Hx information available PLAN OF CARE VITAL SIGNS MEDICATIONS Unknown Medications RESULTS No Results PROCEDURES Procedure Date Ordered Related Diagnosis Body Site ZOSTER (ZOSTAVAX) Oct 08, 2016 SINGLE IMMUNIZATION ADMIN Oct 08, 2016 IMMUNIZATIONS Vaccine Route Administration Date Status ZOSTER (ZOSTAVAX) SC Subcutaneous Oct 08, 2016 Administered
--- OUTSIDE RECORDS SUMMARY | 2020-01-04 10:21 | XMS REPORT ---
Author Author Anton FAY Organization [facility] Address [address] [place] [address] Care Team Providers Care Diaphragm Builder Name Role Phone TWAN FAY Unavailable PROBLEMS Type Condition ICD9-CM Code KCQ31-QG Code Onset Dates Condition S tatus SNOMED Code Problem Urinary incontinence, unspecified type R32 Active 586771257 Problem Developmental disorder F89 Active 9307945 Problem Nicotine abuse Z72.0 Active 44591 008 Problem Hyperlipidemia, unspecified hyperlipidemia E78.5 Active 61712448 Problem Anxiety F41.9 Active 82736324 Problem Essential hypertension I10 Active 48728625 ALLERGIES No Known Allergies ENCOUNTERS Encounter Location Date Diagnosis [place] [facility] [id number] [address] [place] [phone] Apr, [place] [facility] [id number] [address] [place] [address] Apr, [id number] [place] [address] [id number] Apr, [facility] [address] [facility] [id number] [address] [place] [address] [id number] Jan, Dental examination Z01.20 [place] [facility] [id number] [address] [place] [address] Dec, Developmental disorder F89 a nd Anxiety F41.9 [place] [facility] [id number] [address] [place] [address] 14 Nov, 2017 Essential hypertension I10 ; Hyperlipidemia, unspecified hyperlipidemia E78.5 ; Nicotine abuse Z72.0 and Bilateral impacted cerumen H61.23 [place] [facility] [id number] [address] [place] [phone] Oct, [facility] [address] [id number] [address] [place] [address] [phone] Sep, Encounter for dental exam an d cleaning w/o abnormal findings Z01.20 [facility] [address] [facility] [id number] [address] [place] [phone] 11 Sep, 2017 Medicare annual wellness vis it, initial Z00.00 and Encounter for immunization Z23 [facility] [address] [facility] [id number] [address] [place] [address] 28 Aug, 2017 Encounter for immunization Z 23 ; Developmental disorder F89 and Anxiety F41.9 [facility] [address] [facility] [id number] [address] [place] [address] [id number] 13 Jun, 2017 Encounter for dental examina tion and cleaning without abnormal findings Z01.20 [facility] [address] [facility] [id number] [address] [place] [phone] Apr, Anxiety F41.9 and Developmen oscar disorder F89 [facility] [address] [facility] [id number] [address] [place] [address] Apr, Essential hypertension I10 a nd Nicotine abuse Z72.[id number] [place] [phone] Mar, Dental examination Z01.20 [facility] [address] [facility] [id number] [address] [place] [address] [phone] Mar, Encounter for dental examina tion and cleaning without abnormal findings Z01.20 [facility] [address] [facility] [id number] [address] [place] [address] Jan, [facility] [address] [facility] [id number] [address] [place] [address] Dec, Developmental disorder F89 a nd Anxiety F41.9 [facility] [address] [id number] [address] [place] [address] [id number] 15 Dec, 2016 Encounter for dental examina tion and cleaning without abnormal findings Z01.20 [facility] [address] [facility] [id number] [address] [place] [phone] 15 Sep, 2016 Encounter for immunization Z 23 [facility] [address] [facility] [id number] [address] [place] [phone] 08 Sep, 2016 Prostate cancer screening Z1 2.5 and Hyperlipidemia, unspecified hyperlipidemia E78.5 [facility] [address] [facility] [id number] [address] [place] [phone] 06 Sep, 2016 Annual physical exam Z00.00 ; Encounter for immunization Z23 ; Essential hypertension I10 ; Hyperlipidemia, unspecified hyperlipidemia E78.5 ; Anxiety F41.9 ; Prostate cancer screening Z12.5 and Nicotine abuse Z72.0 [facility] [address] [facility] [id number] [address] [place] [phone] Aug, [facility] [address] [facility] [id number] [address] [place] [phone] Jul, Urinary incontinence, unspec ified type R32 [facility] [id number] [place] [address] [phone] Jul, Dental examination Z01.20 [facility] [address] [facility] [id number] [address] [place] [address] Jul, Urinary incontinence, unspec ified type R32 [facility] [address] [facility] [id number] [address] [place] [address] Jul, Anxiety F41.9 and Developmen oscar disorder F89 [facility] [address] [id number] [address] [place] [address] [phone] May, Dental examination Z01.20 [place] [address] [facility] [id number] [place] [address] [phone] Apr, Encounter for dental examination Z01.20 [facility] [address] [id number] [address] [place] [address] [phone] Apr, Encounter for dental examina tion and cleaning without abnormal findings Z01.20 [facility] [address] [facility] [id number] [address] [place] [phone] Mar, Developmental disorder F89 a nd Anxiety F41.9 [facility] [address] [facility] [id number] [address] [place] [address] [phone] February, Dental examination Z01.20 [facility] [address] [place] [id number] [address] [place] [address] February, Essential hypertension I10 [facility] [address] [facility] [id number] [place] [address] February, Arthralgia M25.50 [facility] [address] [id number] [address] [place] [address] [phone] Jan, Encounter for dental examina tion and cleaning without abnormal findings Z01.20 [facility] [address] [place] [id number] [address] [place] [address] Dec, [facility] [address] [place] [id number] [place] [address] Nov, Anxiety F41.9 and Developmen oscar disorder F89 [facility] [address] [place] [id number] [address] [place] [address] Nov, [facility] [address] [address] Nov, [facility] [address] [place] [id number] [address] [place] [address] Oct, Hyperlipidemia, unspecified hyperlipidemia E78.5 [facility] [address] [place] [id number] [address] [place] [address] Oct, Essential hypertension I10 ; Hyperlipidemia, unspecified hyperlipidemia E78.5 and Prostate cancer screening Z12.5 [facility] [address] [place] [id number] [address] [place] [phone] 11 Oct, 2015 Essential hypertension I10 ; Hyperlipidemia, unspecified hyperlipidemia E78.5 ; Nicotine abuse Z72.0 ; Anxiety F41.9 ; Developmental disorder F89 and Prostate cancer screening Z12.5 [facility] [address] [place] [id number] [address] [place] [address] Aug, Anxiety F41.9 and Developmen oscar disorder F89 [facility] [address] [place] [id number] [address] [place] [phone] Aug, Essential hypertension I10 a nd Encounter for immunization Z23 [facility] [address] [place] [id number] [address] [place] [phone] 04 Aug, 2015 Prostate cancer screening Z1 2.5 [facility] [address] [place] [id number] [address] [place] [phone] Jun, Hypertension 401.9 [facility] [address] [place] [id number] [place] [phone] Jun, [facility] [address] [place] [id number] [place] [address] May, Impulse control disorder, un specified 312.30 ; Generalized anxiety disorder 300.02 ; Other specified pervasive developmental disorders, 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 and 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 [facility] [id number] [place] [address] Mar, Hypertension 401.9 [facility] [address] [place] [id number] [address] [place] [address] [id number] Mar, Dental examination V72.2 [facility] [address] [place] [id number] [address] [place] [address] February, Hypertension 401.9 and Hyper lipidemia 272.4 [facility] [address] [place] [id number] [address] [place] [address] February, [facility] [address] [place] [id number] [address] [place] [address] February, Generalized anxiety disorder 300.02 ; Impulse control disorder 312.30 ; 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 and Benign essential HTN 401.1 [facility] [address] [place] [id number] [address] [place] [phone] Jan, [facility] [address] [place] [id number] [address] [place] [phone] 13 Jan, 2015 [facility] [address] [id number] [address] [place] [address], [place] [address] 18 Dec, 2014 [facility] [address] [id number] [address] [place] [address], [place] [address] 18 Dec, 2014 [facility] [address] [id number] [address] [place] [address], [place] [address] 17 Dec, 2014 [facility] [address] [id number] [address] [place] [address], [place] [address] 17 Dec, 2014 [facility] [address] [id number] [address] [place] [address], [place] [address] 16 Dec, 2014 [facility] [address] [id number] [address] [place] [address], [place] [address] 16 Dec, 2014 [facility] [address] [id number] [address] [place] [address], [place] [address] 09 Dec, 2014 [facility] [address] [id number] [address] [place] [address] 09 Dec, 2014 [facility] [address] [id number] [address] [place] [address], [place] [address] 20 Nov, 2014 [facility] [address] [id number] [address] [place] [address], [place] [address] 20 Nov, 2014 [facility] [address] [id number] [address] [place] [address], [place] [address] 19 Nov, 2014 [facility] [address] [id number] [address] [place] [phone] 19 Nov, 2014 [facility] [address] [id number] [address] [place] [address], [place] [address] 18 Nov, 2014 [facility] [address] [id number] [address] [place] [address], [place] [address] 18 Nov, 2014 [facility] [address] [id number] [address] [place] [address], [place] [address] 17 Nov, 2014 [facility] [address] [id number] [address] [place] [address], [place] [address] Nov, [facility] [address] [id number] [address] [place] [address], [place] [address] Oct, [facility] [address] [id number] [address] [place] [address], [place] [address] Oct, [facility] [address] [id number] [address] [place] [address], [place] [address] Oct, [facility] [address] [id number] [address] [place] [address], [place] [address] Oct, [facility] [address] [id number] [address] [place] [address], [place] [address] Oct, [facility] [address] [id number] [address] [place] [address], [place] [address] Oct, [facility] [address] [id number] [address] [place] [address], [place] [address] Sep, [facility] [address] [id number] [address] [place] [address], [place] [address] Sep, [facility] [address] [id number] [address] [place] [address], [place] [address] Sep, [facility] [address] [id number] [address] [place] [address], [place] [address] Sep, [facility] [address] [id number] [address] [place] [address], [place] [address] Sep, [facility] [address] [id number] [address] [place] [address], [place] [address] Sep, [facility] [address] [id number] [address] [place] [address], [place] [address] Aug, [facility] [address] [id number] [address] [place] [address], [place] [address] Aug, [facility] [address] [id number] [address] [place] [address], [place] [address] Aug, [facility] [address] [id number] [address] [place] [address], [place] [address] Aug, [facility] [address] [id number] [address] [place] [address], [place] [address] Jul, [facility] [address] [id number] [address] [place] [address], [place] [address] Jul, [facility] [address] [id number] [address] [place] [address], [place] [address] May, [facility] [address] [id number] [address] [place] [address], [place] [address] May, [facility] [address] [id number] [address] [place] [address], [place] [address] Apr, [facility] [address] [id number] [address] [place] [address], [place] [address] Apr, [facility] [address] [id number] [address] [place] [address], [place] [address] Mar, [facility] [address] [id number] [address] [place] [address], [place] [address] Mar, [facility] [address] [id number] [address] [place] [address], [place] [address] Mar, [facility] [address] [id number] [address] [place] [address], [place] [address] Mar, [facility] [address] [id number] [address] [place] [address], [place] [address] February, [facility] [address] [id number] [address] [place] [address], [place] [address] February, [facility] [address] [id number] [address] [place] [address], [place] [address] Jan, [facility] [address] [id number] [address] [place] [address], [place] [address] Jan, [facility] [address] [id number] [address] [place] [address], [place] [address] Oct, [facility] [address] [id number] [address] [place] [address], [place] [address] Oct, [facility] [address] [id number] [address] [place] [address], [place] [address] Oct, [facility] [address] [id number] [address] [place] [address], [place] [address] Oct, [facility] [address] [id number] [address] [place] [address], [place] [address] Oct, [facility] [address] [id number] [address] [place] [address], [place] [address] Oct, [facility] [address] [id number] [address] [place] [address], [place] [address] Oct, [facility] [address] [id number] [address] [place] [address], [place] [address] Oct, [facility] [address] [id number] [address] [place] [address], [place] [address] Oct, [facility] [address] [id number] [address] [place] [address], [place] [address] Dec, [facility] [address] [id number] [address] [place] [address], [place] [address] Sep, [facility] [address] [id number] [address] [place] [address], [place] [address] Sep, [facility] [address] [id number] [address] [place] [address], [place] [address] May, [facility] [address] [id number] [address] [place] [address], [place] [address] Apr, [facility] [address] [id number] [address] [place] [address], [place] [address] Apr, [facility] [address] [id number] [address] [place] [address], [place] [address] Apr, [facility] [address] [id number] [place] [id number] February, [facility] [address] [id number] [address] [place] [address] Jan, [facility] [address] [id number] [address] [place] [address] Dec, [facility] [address] [id number] [address] [place] [address] Sep, [facility] [address] [id number] [address] [place] [address] Sep, [facility] [address] [id number] [address] [place] [address] Aug, [facility] [address] [id number] [address] [place] [address] Aug, [facility] [address] [facility] [id number] [address] [place] [address] Jul, [facility] [address] [id number] [address] [place] [address] Mar, [facility] [address] [facility] [id number] [address] [place] [address] Mar, [facility] [address] [facility] [id number] [address] [place] [address] Mar, IMMUNIZATIONS No Known Immunizations SOCIAL HISTORY Never Assessed REASON FOR VISIT Blood Pressure--malissasenBONY, --c/o cold, questioned the flu but never ran a fever . PLAN OF CARE Activity Details Follow Up 6 Months Reason:FU for BP VITAL SIGNS Height 68 in 2017-12-08 Weight 179.2 lbs 2017-12-08 Temperature 98.6 degrees Fahrenheit 2017-12-08 Heart Rate 70 bpm 2017-12-08 Respiratory Rate 20 2017-12-08 BMI 27.24 kg/m2 2017-12-08 Blood pressure systolic 112 mmHg 2017-12-08 Blood pressure diastolic 68 mmHg 2017-12-08 MEDICATIONS Medication Instructions Dosage Frequency Start Date End Date Duration S tatus Debrox 6.5 % Otic Twice a day 5 drops into affected ear 12h 14 Nov, 2017 18 Nov, 2017 4 day(s) Active Travatan Z 0.004 % Ophthalmic Once a day 1 drop into affect ed eye in the evening 24h Active Atorvastatin Calcium 20 MG Orally Once a day 1 tablet 24h 31 Active Lisinopril 40 mg Orally Once a day 1 tablet 24h 31 Active HydrOXYzine Pamoate 25 MG 1 capsule in the am, 2pm, and at bedtime Orally 30 Active Risperidone 1 MG TAKE 1 TABLET ORALLY TWICE A DAY FOR ANGER/ AGGRESSION 31 Active Toprol XL 50 mg Orally 2 times a day 1 tablet 12h 29 Jun, 2015 31 Active RESULTS No Results PROCEDURES Procedure Date Ordered Result Body Site [facility] VISIT ESTABLISHED PATIENT Dec 08, 2017 INSTRUCTIONS MEDICATIONS ADMINISTERED No Known Medications MEDICAL (GENERAL) HISTORY Type Description Date Medical History hyperlipidemia Medical History hypertension Medical History mood disorder Medical History mild mental retardation Medical History insomnia Medical History anxiety Medical History Asperger's Surgical History laser eye surgery
--- OUTSIDE RECORDS SUMMARY | 2020-01-04 10:21 | XMS REPORT ---
Author Author Anton GOLDMAN Organization [facility] Address Unknown Care Team Providers Care Laborer [facility] Name Role Phone GLORIA GOLDMAN Unavailable PROBLEMS Type Condition ICD9-CM Code [id number] Code Onset Dates Condition S tatus SNOMED Code Problem Developmental disorder F89 Active 4467626 Problem Anxiety F41.9 Active 45554381 Problem Hyperlipidemia, unspecified hyperlipidemia E78.5 Active 90624260 Assessment Dental examination Z01.20 May, Active 756692066 Problem Nicotine abuse Z72.0 Active 24614 008 Problem Essential hypertension I10 Active 91345698 ALLERGIES Substance Reaction Event Type Date Status N.K.D.A. Unknown Non Drug Allergy May, Unknown SOCIAL HISTORY No smoking Hx information available PLAN OF CARE VITAL SIGNS Height 68 in 2016-06-02 Blood pressure systolic 106 mmHg 2016-06-02 Blood pressure diastolic 77 mmHg 2016-06-02 MEDICATIONS Medication Instructions Dosage Frequency Start Date End Date Duration S tatus Atorvastatin Calcium Act belinda Travatan Z 0.004 % Ophthalmic Once a day 1 drop into affect ed eye in the evening 24h Active Metoprolol-HCTZ ER Activ e Lisinopril 40 mg Orally Once a day 1 tablet 24h 31 Active HydrOXYzine Pamoate 25 MG 1 capsule in the am, 2pm, and at bedtime Orally Active Risperidone 1 MG TAKE 1 TABLET ORALLY TWICE A DAY FOR ANGER/ AGGRESSION Active RESULTS No Results PROCEDURES Procedure Date Ordered Related Diagnosis Body Site AMALGAM-TWO SURFACES PRIMARY/PERM Jun 02, 2016 Billing Notes on claim Jun 02, 2016 IMMUNIZATIONS No Known Immunizations
--- OUTSIDE RECORDS SUMMARY | 2020-01-04 10:21 | XMS REPORT ---
Author Anton Ramos [facility] eClinicalWorks Address Unknown Phone Unavailable Care Team Providers Care Front End Wheel Loader Operator Name Role Phone ARIEL CHAVEZ CP Unavailable Allergies, Adverse Reactions, Alerts Substance Reaction Event Type N.K.D.A. Info Not Available Non Drug Allergy Problems Problem Type Condition Code Onset Dates Condition Statu s Problem Anxiety F41.9 Active Problem Nicotine abuse Z72.0 Active Problem Developmental disorder F89 Activ e Assessment Anxiety F41.9 Active Assessment Developmental disorder F89 Activ e Problem Essential hypertension I10 Activ e Problem Hyperlipidemia, unspecified hyperlipidemia E78.5 Active Medications Medication Code System Code Instructions Start Date End Date Status Dosage Toprol XL [facility] [address]-03 50 mg Orally 2 times a day Jul 23, 2015 1 tablet Atorvastatin Calcium [facility] [address]-96 20 MG Orally Once a day 1 tablet Risperidone [facility] [id number] 1 MG TAKE 1 T ABLET ORALLY TWICE A DAY FOR ANGER/AGGRESSION Travatan Z [facility] [address]-09 0.004 % Ophthalmic Once a day 1 drop into affected eye in the evening Lisinopril [facility] [address]-03 40 mg Orally Once a day 1 tablet HydrOXYzine Pamoate [facility] [address]-52 25 MG 1 capsule in the am, 2pm, and at bedtime Orally Procedures Procedure Coding System Code Date Office Visit, Est Pt., Level 3 CPT-4 37150 Aug 13, 2016 COUNTS INCLUDE 234 BEDS AT THE [facility] VISIT ESTABLISHED PATIENT CPT-[address] 2015 Vital Signs Date/Time: Aug 13, 2016 Cardiac Monitoring Heart Rate 76 bpm Weight 180.3 lbs Height 68 in BMI 27.41 Index Blood Pressure Diastolic 85 mmHg Blood Pressure Systolic 140 mmHg Results No Known Results Summary Purpose eClinicalWorks Submission
--- OUTSIDE RECORDS SUMMARY | 2020-01-04 10:21 | XMS REPORT ---
Author Author Anton FAY [facility] eClinicalWorks Address Unknown Phone Unavailable Care Team Providers Care Air Pollution Specialist Name Role Phone TWAN FAY CP Unavailable Allergies No Known Allergies Problems Problem Type Condition Code Onset Dates Condition Statu s Assessment Prostate cancer screening Z12.5 Ac tive Problem Anxiety F41.9 Active Problem Nicotine abuse Z72.0 Active Problem Developmental disorder F89 Activ e Assessment Essential hypertension I10 Activ e Assessment Hyperlipidemia, unspecified hyperlipidemia E78.5 Active Problem Essential hypertension I10 Activ e Problem Hyperlipidemia, unspecified hyperlipidemia E78.5 Active Medications No Known Medications Procedures Procedure Coding System Code Date ASSAY OF PSA, TOTAL CPT-4 18613 Nov 11, 2015 VENIPUNCT, ROUTINE* CPT-4 16333 Nov 11, 2015 [facility] CPT-4 NOBLL Nov 11, 2015 Results Name Result Date Reference Range Unit Abnormali ty Flag ROUTINE VENIPUNCTURE Summary Purpose eClinicalWorks Submission
--- OUTSIDE RECORDS SUMMARY | 2020-01-04 10:21 | XMS REPORT ---
Author Anton Ramos [facility] eClinicalWorks Address Unknown Phone Unavailable Care Team Providers Care Dietary Cook Name Role Phone ARIEL CHAVEZ CP Unavailable Allergies No Known Allergies Problems Problem Type Condition Code Onset Dates Condition Statu s Problem Developmental disorder F89 Activ e Problem Anxiety F41.9 Active Problem Urinary incontinence, unspecified type R32 Active Problem Hyperlipidemia, unspecified hyperlipidemia E78.5 Active Problem Nicotine abuse Z72.0 Active Problem Essential hypertension I10 Activ e Medications No Known Medications Results No Known Results Summary Purpose eClinicalWorks Submission
--- OUTSIDE RECORDS SUMMARY | 2020-01-04 10:21 | XMS REPORT ---
Author Author Anton FAY [facility] eClinicalWorks Address Unknown Phone Unavailable Care Team Providers Care Middle School Teacher Name Role Phone TWAN FAY CP Unavailable Allergies No Known Allergies Problems Problem Type Condition Code Onset Dates Condition Statu s Problem Developmental disorder F89 Activ e Problem Anxiety F41.9 Active Problem Urinary incontinence, unspecified type R32 Active Problem Hyperlipidemia, unspecified hyperlipidemia E78.5 Active Assessment Urinary incontinence, unspecified type R32 Active Problem Nicotine abuse Z72.0 Active Problem Essential hypertension I10 Activ e Medications No Known Medications Procedures Procedure Coding System Code Date URINALYSIS, AUTO, W/O SCOPE CPT-4 84162 Aug 18, 2016 Results No Known Results Summary Purpose eClinicalWorks Submission
--- OUTSIDE RECORDS SUMMARY | 2020-01-04 10:22 | XMS REPORT ---
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 Name Role Phone SCOTTMIKEARIEL Unavailable PROBLEMS Type Condition ICD9-CM Code MDP93-MC Code Onset Dates Condition S tatus SNOMED Code Problem Urinary incontinence, unspecified type R32 Active 192275523 Problem Developmental disorder F89 Active 4777277 Problem Nicotine abuse Z72.0 Active 13832 008 Problem Hyperlipidemia, unspecified hyperlipidemia E78.5 Active 57073270 Problem Anxiety F41.9 Active 81493220 Problem Essential hypertension I10 Active 52329258 ALLERGIES No Information ENCOUNTERS Encounter Location Date Diagnosis [facility] [address] [facility] [id number] [place] [phone] Apr, [facility] [address] [place] [id number] [address] [place] [address] Apr, [facility] [place] [id number] [place] [address] [phone] Apr, [facility] [id number] [place] [address] [phone] Jan, Dental examination Z01.20 [facility] [address] [id number] [address] [place] [phone] Dec, Developmental disorder F89 a nd Anxiety F41.9 [facility] [address] [facility] [id number] [place] [address] 14 Nov, 2017 Essential hypertension I10 ; Hyperlipidemia, unspecified hyperlipidemia E78.5 ; Nicotine abuse Z72.0 and Bilateral impacted cerumen H61.23 [facility] [address] [facility] [id number] [place] [phone] Oct, [facility] [address] [place] [address] [id number] [address] [place] [address] [phone] Sep, Encounter for dental exam an d cleaning w/o abnormal findings Z01.20 [facility] [address] [facility] [id number] [place] [address] 11 Sep, 2017 Medicare annual wellness vis it, initial Z00.00 and Encounter for immunization Z23 [facility] [address] [facility] [id number] [place] [phone] Aug, Encounter for immunization Z 23 ; Developmental disorder F89 and Anxiety F41.9 [facility] [address] [id number] [address] [place] [address] [phone] 13 Jun, 2017 Encounter for dental examina tion and cleaning without abnormal findings Z01.20 [facility] [address] [facility] [id number] [place] [phone] Apr, Anxiety F41.9 and Developmen oscar disorder F89 [facility] [address] [facility] [id number] [place] [address] Apr, Essential hypertension I10 a nd Nicotine abuse Z72.[address] [place] [id number] [place] [address] [id number] Mar, Dental examination Z01.20 [facility] [address] [id number] [address] [place] [address] [phone] Mar, Encounter for dental examina tion and cleaning without abnormal findings Z01.20 [facility] [address] [id number] [address] [place] [phone] Jan, [facility] [address] [id number] [address] [place] [address] Dec, Developmental disorder F89 a nd Anxiety F41.9 [facility] [address] [id number] [address] [place] [address] [phone] Dec, Encounter for dental examina tion and cleaning without abnormal findings Z01.20 [facility] [address] [facility] [id number] [place] [phone] 15 Sep, 2016 Encounter for immunization Z 23 [facility] [address] [facility] [id number] [place] [phone] 08 Sep, 2016 Prostate cancer screening Z1 2.5 and Hyperlipidemia, unspecified hyperlipidemia E78.5 [facility] [address] [facility] [id number] [place] [phone] 06 Sep, 2016 Annual physical exam Z00.00 ; Encounter for immunization Z23 ; Essential hypertension I10 ; Hyperlipidemia, unspecified hyperlipidemia E78.5 ; Anxiety F41.9 ; Prostate cancer screening Z12.5 and Nicotine abuse Z72.0 [facility] [address] [id number] [address] [place] [phone] Aug, [facility] [address] [facility] [id number] [place] [address] Jul, Urinary incontinence, unspec ified type R32 [facility] [address] [id number] [address] [place] [address] [phone] Jul, Dental examination Z01.20 [facility] [address] [facility] [id number] [place] [address] Jul, Urinary incontinence, unspec ified type R32 [facility] [address] [facility] [id number] [place] [phone] Jul, Anxiety F41.9 and Developmen oscar disorder F89 [facility] [address] [id number] [address] [place] [address] [phone] May, Dental examination Z01.20 [place] [id number] [facility] [id number] [place] [address] [phone] Apr, Encounter for dental examination Z01.20 [facility] [address] [id number] [address] [place] [address] [phone] Apr, Encounter for dental examina tion and cleaning without abnormal findings Z01.20 [facility] [address] [id number] [address] [place] [phone] Mar, Developmental disorder F89 a nd Anxiety F41.9 [facility] [address] [id number] [address] [place] [address] [phone] February, Dental examination Z01.20 [facility] [address] [facility] [id number] [place] [phone] February, Essential hypertension I10 [facility] [address] [facility] [id number] [place] [phone] February, Arthralgia M25.50 [facility] [address] [id number] [address] [place] [address] [phone] Jan, Encounter for dental examina tion and cleaning without abnormal findings Z01.20 [facility] [address] [facility] [id number] [place] [phone] Dec, [place] [address] [facility] [id number] [place] [phone] Nov, Anxiety F41.9 and Developmen oscar disorder F89 [facility] [address] [facility] [id number] [place] [phone] Nov, [facility] [address] [id number] [address] [place] [phone] Nov, [facility] [address] [facility] [id number] [place] [phone] Oct, Hyperlipidemia, unspecified hyperlipidemia E78.5 [facility] [address] [facility] [id number] [place] [phone] Oct, Essential hypertension I10 ; Hyperlipidemia, unspecified hyperlipidemia E78.5 and Prostate cancer screening Z12.5 [facility] [address] [facility] [id number] [place] [phone] 11 Oct, 2015 Essential hypertension I10 ; Hyperlipidemia, unspecified hyperlipidemia E78.5 ; Nicotine abuse Z72.0 ; Anxiety F41.9 ; Developmental disorder F89 and Prostate cancer screening Z12.5 [facility] [address] [facility] [id number] [place] [phone] Aug, Anxiety F41.9 and Developmen oscar disorder F89 [facility] [address] [id number] [address] [place] [phone] Aug, Essential hypertension I10 a nd Encounter for immunization Z23 [facility] [address] [id number] [address] [place] [phone] 04 Aug, 2015 Prostate cancer screening Z1 2.5 [facility] [address] [phone] 29 Jun, 2015 Hypertension 401.9 [facility] [address] [phone] Jun, [facility] [address] [phone] May, Impulse control disorder, un specified 312.30 ; Generalized anxiety disorder 300.02 ; Other specified pervasive developmental disorders, 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 and 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 [facility] [address] [place] [id number] [address] [place] [phone] Mar, Hypertension 401.9 [facility] [address] [id number] [address] [place] [address] [id number] Mar, Dental examination V72.2 [facility] [address] [id number] [address] [place] [phone] February, Hypertension 401.9 and Hyper lipidemia 272.4 [facility] [address] [place] [address] [id number] [address] [place] [phone] February, [facility] [address] [place] [id number] [address] [place] [phone] February, Generalized anxiety disorder 300.02 ; Impulse control disorder 312.30 ; 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 and Benign essential HTN 401.1 [facility] [address] [id number] [address] [place] [phone] Jan, [facility] [address] [address] 13 Jan, 2015 [facility] [address] [id number] [address] [place] [address], [place] [address] 18 Dec, 2014 [facility] [address] [id number] [address] [place] [address], [place] [address] 18 Dec, 2014 [facility] [address] [id number] [address] [place] [address], [place] [address] 17 Dec, 2014 [facility] [address] [id number] [address] [place] [address], [place] [address] 17 Dec, 2014 [facility] [address] [id number] [address] [place] [address], [place] [address] 16 Dec, 2014 [facility] [address] [id number] [address] [place] [address], [place] [address] 16 Dec, 2014 [facility] [address] [id number] [address] [place] [address], [place] [address] 09 Dec, 2014 [facility] [address] [id number] [address] [place] [address], [place] [address] 09 Dec, 2014 [facility] [address] [id number] [address] [place] [address], [place] [address] 20 Nov, 2014 [facility] [address] [id number] [address] [place] [address], [place] [address] 20 Nov, 2014 [facility] [address] [id number] [address] [place] [address], [place] [address] 19 Nov, 2014 [facility] [address] [id number] [address] [place] [address], [place] [address] 19 Nov, 2014 [facility] [address] [id number] [address] [place] [address], [place] [address] 18 Nov, 2014 [facility] [address] [id number] [address] [place] [address], [place] [address] 18 Nov, 2014 [facility] [address] [id number] [address] [place] [address], [place] [address] 17 Nov, 2014 [facility] [address] [id number] [address] [place] [address], [place] [address] 17 Nov, 2014 [facility] [address] [id number] [address] [place] [address], [place] [address] Oct, [facility] [address] [id number] [address] [place] [address], [place] [address] Oct, [facility] [address] [id number] [address] [place] [address], [place] [address] Oct, [facility] [address] [id number] [address] [place] [address], [place] [address] Oct, [facility] [address] [id number] [address] [place] [address], [place] [address] Oct, [facility] [address] [id number] [address] [place] [address], [place] [address] Oct, [facility] [address] [id number] [address] [place] [address], [place] [address] Sep, [facility] [address] [id number] [address] [place] [address], [place] [address] Sep, [facility] [address] [id number] [address] [place] [address], [place] [address] Sep, [facility] [address] [id number] [address] [place] [address], [place] [address] Sep, [facility] [address] [id number] [address] [place] [address], [place] [address] Sep, [facility] [address] [id number] [address] [place] [address], [place] [address] Sep, [facility] [address] [id number] [address] [place] [address], [place] [address] Aug, [facility] [address] [id number] [address] [place] [address], [place] [address] Aug, [facility] [address] [id number] [address] [place] [address], [place] [address] Aug, [facility] [address] [id number] [address] [place] [address], [place] [address] Aug, [facility] [address] [id number] [address] [place] [address], [place] [address] Jul, [facility] [address] [id number] [address] [place] [address], [place] [address] Jul, [facility] [address] [id number] [address] [place] [address], [place] [address] May, [facility] [address] [id number] [address] [place] [address], [place] [address] May, [facility] [address] [id number] [address] [place] [address], [place] [address] Apr, [facility] [address] [id number] [address] [place] [address], [place] [address] Apr, [facility] [address] [id number] [address] [place] [address], [place] [address] Mar, [facility] [address] [id number] [address] [place] [address], [place] [address] Mar, [facility] [address] [id number] [address] [place] [address], [place] [address] Mar, [facility] [address] [id number] [address] [place] [address], [place] [address] Mar, [facility] [address] [id number] [address] [place] [address], [place] [address] February, [facility] [address] [id number] [address] [place] [address], [place] [address] February, [facility] [address] [id number] [address] [place] [address], [place] [address] Jan, [facility] [address] [id number] [address] [place] [address], [place] [address] Jan, [facility] [address] [id number] [address] [place] [address], [place] [address] Oct, [facility] [address] [id number] [address] [place] [address], [place] [address] Oct, [facility] [address] [id number] [address] [place] [address], [place] [address] Oct, [facility] [address] [id number] [address] [place] [address], [place] [address] Oct, [facility] [address] [id number] [address] [place] [address], [place] [address] Oct, [facility] [address] [id number] [address] [place] [address], [place] [address] Oct, [facility] [address] [id number] [address] [place] [address], [place] [address] Oct, [facility] [address] [id number] [address] [place] [address], [place] [address] Oct, [facility] [address] [id number] [address] [place] [address], [place] [address] Oct, [facility] [address] [id number] [address] [place] [address], [place] [address] Dec, [facility] [address] [id number] [address] [place] [address], [place] [address] Sep, [facility] [address] [id number] [address] [place] [address], [place] [address] Sep, [facility] [address] [id number] [address] [place] [address], [place] [address] May, [facility] [address] [id number] [address] [place] [address], [place] [address] Apr, [facility] [address] [id number] [address] [place] [address], [place] [address] Apr, [facility] [address] [id number] [address] [place] [address], [place] [address] Apr, [facility] [address] [id number] [place] [id number] February, [facility] [address] [id number] [address] [place] [address] Jan, [facility] [address] [id number] [address] [place] [address] Dec, [facility] [address] [id number] [address] [place] [address] Sep, [facility] [address] [id number] [address] [place] [address] Sep, [facility] [address] [facility] [id number] [place] [address] Aug, [facility] [address] [id number] [address] [place] [address] Aug, [facility] [address] [facility] [id number] [place] [address] Jul, [facility] [address] [id number] [address] [place] [address] Mar, [facility] [address] [facility] [id number] [place] [address] Mar, [facility] [address] [facility] [id number] [place] [address] Mar, IMMUNIZATIONS Vaccine Route Administration Date Status FLUARIX QUAD (3 AND UP) 2017 IM Intramuscular Sep 21, 2017 Ad ministered SOCIAL HISTORY Never Assessed REASON FOR VISIT f/Zane LOVETT PLAN OF CARE Activity Details Follow Up 4 Months Reason: VITAL SIGNS Height 68 in 2017-09-21 Weight 184.6 lbs 2017-09-21 Heart Rate 74 bpm 2017-09-21 Respiratory Rate 18 2017-09-21 BMI 28.07 kg/m2 2017-09-21 Blood pressure systolic 134 mmHg 2017-09-21 Blood pressure diastolic 78 mmHg 2017-09-21 MEDICATIONS Medication Instructions Dosage Frequency Start Date End Date Duration S tatus Lisinopril 40 mg Orally Once a day 1 tablet 24h 31 Active Atorvastatin Calcium 20 MG Orally Once a day 1 tablet 24h 31 Active Travatan Z 0.004 % Ophthalmic Once a day 1 drop into affect ed eye in the evening 24h Active HydrOXYzine Pamoate 25 MG 1 capsule in the am, 2pm, and at bedtime Orally Active Toprol XL 50 mg Orally 2 times a day 1 tablet 12h 29 Jun, 2015 31 Active Risperidone 1 MG TAKE 1 TABLET ORALLY TWICE A DAY FOR ANGER/ AGGRESSION Active RESULTS No Results PROCEDURES Procedure Date Ordered Result Body Site [facility] VISIT ESTABLISHED PATIENT Sep 21, 2017 SINGLE IMMUNIZATION ADMIN Sep 21, 2017 FLUARIX QUAD (3 AND UP) 2016Sep 21, 2017 INSTRUCTIONS MEDICATIONS ADMINISTERED No Known Medications MEDICAL (GENERAL) HISTORY Type Description Date Medical History hyperlipidemia Medical History hypertension Medical History mood disorder Medical History mild mental retardation Medical History insomnia Medical History anxiety Medical History Asperger's Surgical History laser eye surgery
--- OUTSIDE RECORDS SUMMARY | 2020-01-04 10:22 | XMS REPORT ---
Author Author Anton ZUNIGA Organization [facility] Address [address] [place] [address] Care Team Providers Care Telephonic Rn Name Role Phone EFRAIN ERY Unavailable PROBLEMS Type Condition ICD9-CM Code NGD76-RT Code Onset Dates Condition S tatus SNOMED Code Problem Urinary incontinence, unspecified type R32 Active 558914234 Problem Developmental disorder F89 Active 2885705 Problem Nicotine abuse Z72.0 Active 20116 008 Problem Hyperlipidemia, unspecified hyperlipidemia E78.5 Active 74248793 Problem Anxiety F41.9 Active 21412478 Problem Essential hypertension I10 Active 37544759 ALLERGIES No Information ENCOUNTERS Encounter Location Date Diagnosis [place] [id number] [facility] [id number] [address] [place] [phone] Jan, [place] [address] [place] [id number] [address] [place] [address] Dec, [facility] [address] [place] [id number] [address] [place] [address] 14 Nov, 2017 Essential hypertension I10 ; Hyperlipidemia, unspecified hyperlipidemia E78.5 ; Nicotine abuse Z72.0 and Bilateral impacted cerumen H61.23 [facility] [address] [place] [id number] [address] [place] [address] Oct, [facility] [address] [facility] [id number] [address] [place] [address] [id number] 27 Sep, 2017 Encounter for dental exam an d cleaning w/o abnormal findings Z01.20 [facility] [address] [place] [id number] [address] [place] [address] 11 Sep, 2017 Medicare annual wellness vis it, initial Z00.00 and Encounter for immunization Z23 [place] [address] [place] [id number] [address] [place] [address] Aug, Encounter for immunization Z 23 ; Developmental disorder F89 and Anxiety F41.9 [facility] [address] [id number] [address] [place] [address] [id number] Jun, Encounter for dental examina tion and cleaning without abnormal findings Z01.20 [facility] [address] [id number] [address] [place] [id number] 27 Apr, 2017 Anxiety F41.9 and Developmen oscar disorder F89 [facility] [address] [facility] [id number] [address] [place] [address] Apr, Essential hypertension I10 a nd Nicotine abuse Z72.[address] [id number] [place] [address] [id number] Mar, Dental examination Z01.20 [facility] [address] [id number] [address] [place] [address] [id number] Mar, Encounter for dental examina tion and cleaning without abnormal findings Z01.20 [facility] [address] [facility] [id number] [address] [place] [address] Jan, [facility] [address] [facility] [id number] [address] [place] [address] Dec, Developmental disorder F89 a nd Anxiety F41.9 [facility] [address] [id number] [address] [place] [address] [id number] Dec, Encounter for dental examina tion and cleaning without abnormal findings Z01.20 [facility] [address] [facility] [id number] [address] [place] [address] Sep, Encounter for immunization Z 23 [facility] [address] [facility] [id number] [address] [place] [address] Sep, Prostate cancer screening Z1 2.5 and Hyperlipidemia, unspecified hyperlipidemia E78.5 [facility] [address] [facility] [id number] [address] [place] [address] Sep, Annual physical exam Z00.00 ; Encounter for immunization Z23 ; Essential hypertension I10 ; Hyperlipidemia, unspecified hyperlipidemia E78.5 ; Anxiety F41.9 ; Prostate cancer screening Z12.5 and Nicotine abuse Z72.0 [facility] [address] [facility] [id number] [address] [place] [phone] Aug, [facility] [address] [facility] [id number] [address] [place] [address] Jul, Urinary incontinence, unspec ified type R32 [facility] [address] [id number] [place] [address] [phone] Jul, Dental examination Z01.20 [facility] [address] [facility] [id number] [address] [place] [id number] Jul, Urinary incontinence, unspec ified type R32 [facility] [address] [facility] [id number] [address] [place] [address] Jul, Anxiety F41.9 and Developmen oscar disorder F89 [facility] [address] [id number] [place] [address] [id number] May, Dental examination Z01.[address] [id number] [place] [address] [id number] Apr, Encounter for dental examination Z01.20 [facility] [id number] [place] [address] [id number] Apr, Encounter for dental examina tion and cleaning without abnormal findings Z01.20 [facility] [address] [facility] [id number] [address] [place] [address] Mar, Developmental disorder F89 a nd Anxiety F41.9 [facility] [address] [facility] [id number] [place] [address] [id number] February, Dental examination Z01.20 [facility] [address] [facility] [id number] [address] [place] [address] February, Essential hypertension I10 [facility] [address] [facility] [id number] [address] [place] [address] February, Arthralgia M25.50 [facility] [address] [id number] [address] [place] [address] [phone] Jan, Encounter for dental examina tion and cleaning without abnormal findings Z01.20 [facility] [address] [facility] [id number] [address] [place] [address] Dec, [facility] [address] [facility] [id number] [address] [place] [address] Nov, Anxiety F41.9 and Developmen oscar disorder F89 [facility] [address] [facility] [id number] [address] [place] [address] Nov, [facility] [address] [facility] [id number] [address] [place] [address] Nov, [facility] [address] [facility] [id number] [address] [place] [address] Oct, Hyperlipidemia, unspecified hyperlipidemia E78.5 [facility] [address] [facility] [id number] [address] [place] [address] Oct, Essential hypertension I10 ; Hyperlipidemia, unspecified hyperlipidemia E78.5 and Prostate cancer screening Z12.5 [facility] [address] [facility] [id number] [address] [place] [address] Oct, Essential hypertension I10 ; Hyperlipidemia, unspecified hyperlipidemia E78.5 ; Nicotine abuse Z72.0 ; Anxiety F41.9 ; Developmental disorder F89 and Prostate cancer screening Z12.5 [facility] [address] [facility] [id number] [address] [place] [address] Aug, Anxiety F41.9 and Developmen oscar disorder F89 [facility] [address] [facility] [id number] [address] [place] [address] Aug, Encounter for immunization Z 23 and Essential hypertension I10 [facility] [address] [facility] [id number] [address] [place] [address] Aug, Prostate cancer screening Z1 2.5 [place] [address] [id number] [address] [place] [address] Jun, Hypertension 401.9 [facility] [address] [facility] [id number] [address] [place] [address] Jun, 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 [address] [facility] [id number] [address] [place] [address] Mar, Hypertension 401.9 [facility] [address] [id number] [address] [place] [address] [id number] Mar, Dental examination V72.2 [facility] [address] [facility] [id number] [address] [place] [address] February, Hypertension 401.9 and Hyper lipidemia 272.4 [facility] [address] [facility] [id number] [address] [place] [address] February, 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 [address] [facility] [id number] [address] [place] [phone] Jan, [facility] [address] [facility] [id number] [address] [place] [address] Jan, [facility] [address] [facility] [id number] [address] [place] [address] Dec, [facility] [address] [facility] [id number] [address] [place] [address] Dec, [facility] [address] [facility] [id number] [address] [place] [address] Dec, [facility] [address] [id number] [address] [place] [address], [place] [address] 17 Dec, 2014 [facility] [address] [id number] [address] [place] [address], [place] [address] 16 Dec, 2014 [facility] [address] [id number] [address] [place] [address], [place] [address] 16 Dec, 2014 [facility] [address] [id number] [address] [place] [address], [place] [address] Dec, [facility] [address] [id number] [address] [place] [address], [place] [address] Dec, [facility] [address] [id number] [address] [place] [address], [place] [address] 20 Nov, 2014 [facility] [address] [id number] [address] [place] [address], [place] [address] 20 Nov, 2014 [facility] [address] [id number] [address] [place] [address], [place] [address] Nov, [facility] [address] [id number] [address] [place] [address], [place] [address] Nov, [facility] [address] [id number] [address] [place] [address] 18 Nov, 2014 [facility] [address] [id number] [address] [place] [address] 18 Nov, 2014 [facility] [address] [id number] [address] [place] [address] Nov, [facility] [address] [id number] [address] [place] [address], [place] [address] Nov, [facility] [address] [id number] [address] [place] [address] Oct, [facility] [address] [id number] [address] [place] [address] Oct, [facility] [address] [id number] [address] [place] [address] Oct, [facility] [address] [id number] [address] [place] [address], [place] [address] Oct, [facility] [address] [id number] [address] [place] [address] Oct, [facility] [address] [id number] [address] [place] [address], [place] [address] Oct, [facility] [address] [id number] [address] [place] [address], [place] [address] Sep, [facility] [address] [id number] [address] [place] [address], [place] [address] Sep, [facility] [address] [id number] [address] [place] [address], [place] [address] Sep, [facility] [address] [id number] [address] [place] [address] Sep, [facility] [address] [id number] [address] [place] [address], [place] [address] Sep, [facility] [address] [id number] [address] [place] [address], [place] [address] Sep, [facility] [address] [id number] [address] [place] [address], [place] [address] Aug, [facility] [address] [id number] [address] [place] [address] Aug, [facility] [address] [id number] [address] [place] [address] Aug, [facility] [address] [id number] [address] [place] [address] Aug, [facility] [address] [id number] [address] [place] [address] Jul, [facility] [address] [id number] [address] [place] [address] Jul, [facility] [address] [id number] [facility] [place] [address] May, [facility] [address] [id number] [address] [place] [address], [place] [address] May, [facility] [address] [id number] [address] [place] [address], [place] [address] Apr, [facility] [address] [id number] [address] [place] [address], [place] [address] Apr, [facility] [address] [id number] [address] [place] [address], [place] [address] Mar, [facility] [address] [id number] [address] [place] [address], [place] [address] Mar, [facility] [address] [id number] [address] [place] [address], [place] [address] Mar, [facility] [address] [id number] [address] [place] [address], [place] [address] Mar, [facility] [address] [id number] [address] [place] [address], [place] [address] February, [facility] [address] [id number] [address] [place] [address], [place] [address] February, [facility] [address] [id number] [address] [place] [address], [place] [address] Jan, [facility] [address] [id number] [address] [place] [address], [place] [address] Jan, [facility] [address] [id number] [address] [place] [address], [place] [address] Oct, [facility] [address] [id number] [address] [place] [address], [place] [address] Oct, [facility] [address] [id number] [address] [place] [address], [place] [address] Oct, [facility] [address] [id number] [address] [place] [address] [address] Oct, [facility] [address] [id number] [address] [place] [address], [place] [address] Oct, [facility] [address] [id number] [address] [place] [address], [place] [address] Oct, [facility] [address] [id number] [address] [place] [address], [place] [address] Oct, [facility] [address] [id number] [address] [place] [address], [place] [address] Oct, [facility] [address] [id number] [address] [place] [address], [place] [address] Oct, [facility] [address] [id number] [address] [place] [address], [place] [address] Dec, [facility] [address] [id number] [address] [place] [address], [place] [address] Sep, [facility] [address] [id number] [address] [place] [address], [place] [address] Sep, [facility] [address] [id number] [address] [place] [address], [place] [address] May, [facility] [address] [id number] [address] [place] [address], [place] [address] Apr, [facility] [address] [id number] [address] [place] [address] Apr, [facility] [address] [id number] [address] [place] [address], [place] [address] Apr, [facility] [address] [id number] [place] [id number] February, [facility] [address] [id number] [address] [place] [address], [place] [address] Jan, [facility] [address] [id number] [address] [place] [address], [place] [address] Dec, [facility] [address] [id number] [address] [place] [address] Sep, [facility] [address] [id number] [address] [place] [address] Sep, [facility] [address] [id number] [address] [place] [address] Aug, [facility] [address] [facility] [id number] [address] [place] [address] Aug, [facility] [address] [facility] [id number] [address] [place] [address] Jul, [facility] [address] [facility] [id number] [address] [place] [address] Mar, [facility] [address] [facility] [id number] [address] [place] [address] Mar, [facility] [address] [facility] [id number] [address] [place] [address] Mar, IMMUNIZATIONS No Known Immunizations SOCIAL HISTORY Never Assessed REASON FOR VISIT PLAN OF CARE Activity Details Follow Up prn Reason:In need of restor ative, extractions and recall VITAL SIGNS MEDICATIONS Unknown Medications RESULTS No Results PROCEDURES Procedure Date Ordered Result Body Site COMP ORAL EVALUATION - NEW/EST PT April 14, 2017 INTRAORL-PERIAPICAL 1 FILM 23784 April 14, 2017 INTRAORL-PERIAPICAL EA ADD FILM April 14, 2017 INTRAORL-PERIAPICAL EA ADD FILM April 14, 2017 BITEWINGS - FOUR FILMS April 14, 2017 INTRAORL-PERIAPICAL EA ADD FILM April 14, 2017 INSTRUCTIONS MEDICATIONS ADMINISTERED No Known Medications MEDICAL (GENERAL) HISTORY Type Description Date Medical History hyperlipidemia Medical History hypertension Medical History mood disorder Medical History mild mental retardation Medical History insomnia Medical History anxiety Medical History Asperger's Surgical History laser eye surgery
--- OUTSIDE RECORDS SUMMARY | 2020-01-04 10:22 | XMS REPORT ---
Author Author Anton FAY [facility] eClinicalWorks Address Unknown Phone Unavailable Care Team Providers Care Padded Products Inspector Trimmer Name Role Phone TWAN FAY CP Unavailable Allergies No Known Allergies Problems Problem Type Condition ICD-9 Code Onset Dates Condition Statu s Problem Routine general medical examination at [facility] ility V70.0 Active Problem Hyperlipidemia 272.4 Active Problem Need for [...] Instructions Start Date End Date Status Dosage Lisinopril [facility] [address]-08 40 MG Orally Once a day March 21, 2015 1 tablet Results No Known Results Summary Purpose eClinicalWorks Submission
--- OUTSIDE RECORDS SUMMARY | 2020-01-04 10:22 | XMS REPORT ---
Author Author Anton FAY [facility] Address [address] [place] [address] Care Team Providers Care Automobile Radio Repairer Name Role Phone TWAN FAY Unavailable PROBLEMS Type Condition ICD9-CM Code [id number] Code Onset Dates Condition S tatus SNOMED Code Assessment Prostate cancer screening Z12.5 Sep, Active 753455990 Assessment Annual physical exam Z00.00 Sep, Activ e 802266277 Assessment Encounter for immunization Z23 Sep, Active 705838732 Problem Urinary incontinence, unspecified type R32 Active 322050780 Problem Developmental disorder F89 Active 1538745 Problem Essential hypertension I10 Active 36974759 Problem Hyperlipidemia, unspecified hyperlipidemia E78.5 Active 96723977 Problem Anxiety F41.9 Active 51255953 Problem Nicotine abuse Z72.0 Active 40867 008 ALLERGIES Substance Reaction Event Type Date Status N.K.D.A. Unknown Non Drug Allergy Sep, Unknown SOCIAL HISTORY No smoking Hx information available PLAN OF CARE VITAL SIGNS Height 68 in 2016-09-29 Weight 180.9 lbs 2016-09-29 Heart Rate 80 bpm 2016-09-29 Respiratory Rate 20 2016-09-29 BMI 27.50 kg/m2 2016-09-29 Blood pressure systolic 150 mmHg 2016-09-29 Blood pressure diastolic 90 mmHg 2016-09-29 MEDICATIONS Medication Instructions Dosage Frequency Start Date End Date Duration S tatus Atorvastatin Calcium 20 MG Orally Once a day 1 tablet 24h 31 Active Risperidone 1 MG TAKE 1 TABLET ORALLY TWICE A DAY FOR ANGER/ AGGRESSION Active Toprol XL 50 mg Orally 2 times a day 1 tablet 12h Jun, Active Lisinopril 40 mg Orally Once a day 1 tablet 24h 31 Active HydrOXYzine Pamoate 25 MG 1 capsule in the am, 2pm, and at bedtime Orally 31 Active Travatan Z 0.004 % Ophthalmic Once a day 1 drop into affect ed eye in the evening 24h Active RESULTS No Results PROCEDURES Procedure Date Ordered Related Diagnosis Body Site Preventive Care Est Pt. Age 40-64 Sep 29, 2016 PPV23 (PNEUMOVAX) Sep 29, 2016 SINGLE IMMUNIZATION ADMIN Sep 29, 2016 FLUARIX QUAD P-FREE 3 AND UP .50 2015Sep 29, 2016 IMMUNIZATION ADMIN, EACH ADD (please include units) Sep 29, 2016 IMMUNIZATIONS Vaccine Route Administration Date Status PPV23 (PNEUMOVAX) IM Intramuscular Sep 29, 2016 Administered FLUARIX QUAD P-FREE 3 AND UP .50 2015 IM Intramuscular Sep 29, 016 Administered
--- OUTSIDE RECORDS SUMMARY | 2020-01-04 10:22 | XMS REPORT ---
Author Author Anton FAY [facility] eClinicalWorks Address Unknown Phone Unavailable Care Team Providers Care Polls Or Surveys Interviewer Name Role Phone TWAN FAY CP Unavailable Allergies, Adverse Reactions, Alerts Substance Reaction Event Type N.K.D.A. Info Not Available Non Drug Allergy Problems Problem Type Condition Code Onset Dates Condition Statu s Problem Routine general medical examination at [facility] V70.0 Active Assessment Hypertension 401.9 Active Problem Hyperlipidemia 272.4 Active Problem Need [...] Date Status Dosage Lisinopril [facility] [address]-65 40 MG Orally Once a day March 21, 2015 1 tablet Toprol XL [facility] [address]-45 50 MG Orally Once a day Jul 23, 2015 1 tablet HydrOXYzine HCl [facility] 31869143323 25 MG take 1 tablet by Oral route 3 times per day take at AM, 2pm, and at HS Risperdal [facility] [address]-67 1 MG Nov 08, 2014 1 t ablet by Oral route 2 times per day for anger/aggression Risperidone [facility] [id number] 1 MG TAKE 1 T ABLET ORALLY TWICE A DAY FOR ANGER/AGGRESSION Procedures Procedure Coding System Code Date Office Visit, Est Pt., Level 3 CPT-4 83046 S ept 2014 [facility] VISIT ESTABLISHED PATIENT CPT-4 G0467 S ept 2014 Vital Signs Date/Time: Jul 23, 2015 Temperature 98.0 F Weight 173.0 lbs Height 68 in BMI 26.30 Index Blood Pressure Diastolic 86 mmHg Blood Pressure Systolic 170 mmHg Cardiac Monitoring Heart Rate 80 bpm Results No Known Results Summary Purpose eClinicalWorks Submission
--- OUTSIDE RECORDS SUMMARY | 2020-01-04 10:22 | XMS REPORT ---
Author Author Anton SWANN Organization [facility] Address [address] [place] [address] Phone Unavailable Care Team Providers Care Armhole Baster Hand Name Role Phone MIKE SWANN Unavailable Unavailable PROBLEMS Type Condition ICD9-CM Code [id number] Code Onset Dates Condition S tatus SNOMED Code Problem Urinary incontinence, unspecified type R32 Active 427389357 Problem Developmental disorder F89 Active 1988044 Problem Nicotine abuse Z72.0 Active 75550 008 Problem Hyperlipidemia, unspecified hyperlipidemia E78.5 Active 08733711 Problem Anxiety F41.9 Active 24730540 Problem Essential hypertension I10 Active 84560427 ALLERGIES No Known Allergies SOCIAL HISTORY Never Assessed PLAN OF CARE Activity Details Follow Up [...] 2pm, and at bedtime Orally 31 Active Risperidone 1 MG TAKE 1 TABLET ORALLY TWICE A DAY FOR ANGER/ AGGRESSION Active Atorvastatin Calcium 20 MG Orally Once a day 1 tablet 24h 31 Active RESULTS No Results PROCEDURES Procedure Date Ordered Result Body Site PROPHYLAXIS - ADULT January 06, 2017 TOPICAL FLUORIDE VARNISH January 06, 2017 IMMUNIZATIONS No Known Immunizations MEDICAL (GENERAL) HISTORY Type Description Date Medical History hyperlipidemia Medical History hypertension Medical History mood disorder Medical History mild mental retardation Medical History insomnia Medical History anxiety Medical History Asperger's Surgical History laser eye surgery
--- OUTSIDE RECORDS SUMMARY | 2020-01-04 10:22 | XMS REPORT ---
Author Anton Ramos e[employer] Address Unknown Phone Unavailable Care Team Providers Care Provider Engagement Executive Name Role Phone ARIEL CHAVEZ CP Unavailable Allergies, Adverse Reactions, Alerts Substance Reaction Event Type N.K.D.A. Info Not Available Non Drug Allergy Problems Problem Type Condition ICD-9 Code Onset Dates Condition Statu s Assessment Generalized anxiety disorder 300.02 Active Problem Routine general medical examination at [facility] V70.0 Active Assessment Impulse control disorder, unspecified 312.30 Active Assessment 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 Active Assessment Other specified pervasive de velopmental disorders, 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 Active Problem Hyperlipidemia 272.4 Active Problem Need [...] Instructions Start Date End Date Status Dosage Risperdal [facility] [address]-25 1 MG Nov 08, 2014 1 t ablet by Oral route 2 times per day for anger/aggression Lisinopril [facility] [address]-52 40 MG Orally Once a day March 21, 2015 1 tablet HydrOXYzine HCl [facility] 02424174402 25 MG take 1 tablet by Oral route 3 times per day take at AM, 2pm, and at HS Propranolol HCl [facility] [address]-71 20 MG Orally 3 times a day March 1 tablet Clonidine HCl [facility] 66276085007 0.1 MG 1 tab let by Oral route 1 time per day [facility] Procedures Procedure Coding System Code Date Office Visit, Est Pt., Level 3 CPT-4 53100 A 2014 [facility] VISIT ESTABLISHED PATIENT CPT-4 G0467 A 2014 Vital Signs Date/Time: Jun 11, 2015 Temperature 98.0 F Weight 173.0 lbs Height 68 in BMI 26.30 Index Blood Pressure Diastolic 100 mmHg Blood Pressure Systolic 140 mmHg Cardiac Monitoring Heart Rate 88 bpm Results No Known Results Summary Purpose eClinicalWorks Submission
--- OUTSIDE RECORDS SUMMARY | 2020-01-04 10:22 | XMS REPORT ---
Author Author Anton FAY Organization [employer] Address Unknown Phone Unavailable Care Team Providers Care Photoresist Printer Name Role Phone TWAN FAY CP Unavailable Allergies, Adverse Reactions, Alerts Substance Reaction Event Type N.K.D.A. Info Not Available Non Drug Allergy Problems Problem Type Condition Code Onset Dates Condition Statu s Problem Anxiety F41.9 Active Problem Nicotine abuse Z72.0 Active Problem Developmental disorder F89 Activ e Assessment Essential hypertension I10 Activ e Assessment Encounter for immunization Z23 A ctive Problem Essential hypertension I10 Activ e Problem Hyperlipidemia, unspecified hyperlipidemia E78.5 Active Medications Medication Code System Code Instructions Start Date End Date Status Dosage Lisinopril [facility] [address]-93 40 MG Orally Once a day March 21, 2015 1 tablet Toprol XL [facility] [address]-10 50 MG Orally 2 times a day Jul 23, 2015 1 tablet HydrOXYzine HCl [facility] 24209155322 25 MG take 1 tablet by Oral route 3 times per day take at AM, 2pm, and at HS Risperidone [facility] 81557083184 1 MG TAKE 1 T ABLET ORALLY TWICE A DAY FOR ANGER/AGGRESSION Procedures Procedure Coding System Code Date Office Visit, Est Pt., Level 3 CPT-4 40893 N 2014 FLUARIX QUAD (3 & UP)-GSK-2014 CPT-4 21421 N 2014 [facility] VISIT ESTABLISHED PATIENT CPT-4 G0467 N 2014 SINGLE IMMUNIZATION ADMIN CPT-4 99247 Aug Vital Signs Date/Time: Sep 10, 2015 Temperature 98.1 F Weight 170.8 lbs Height 68 in BMI 25.97 Index Blood Pressure Diastolic 86 mmHg Blood Pressure Systolic 138 mmHg Cardiac Monitoring Heart Rate 86 bpm Results No Known Results Immunizations Vaccine Administration Date FLUARIX QUAD (3 & UP)-GSK-2014Sep 10, 2015 Summary Purpose eClinicalWorks Submission
--- OUTSIDE RECORDS SUMMARY | 2020-01-04 10:22 | XMS REPORT ---
Author Author Anton SWANN [facility] Address [address] [place] [address] Phone Unavailable Care Team Providers Care Electrical Plumbing Supervisor Name Role Phone MIKE SWANN Unavailable Unavailable PROBLEMS Type Condition ICD9-CM Code [id number] Code Onset Dates Condition S tatus SNOMED Code Problem Urinary incontinence, unspecified type R32 Active 708070406 Problem Developmental disorder F89 Active 1847448 Problem Nicotine abuse Z72.0 Active 27892 008 Problem Hyperlipidemia, unspecified hyperlipidemia E78.5 Active 07762483 Problem Anxiety F41.9 Active 21717290 Problem Essential hypertension I10 Active 12369745 ALLERGIES No Known Allergies ENCOUNTERS Encounter Location Date Diagnosis [facility] [address] [address] Apr, [facility] [id number] [place] [phone] Jan, Dental examination Z01.20 [facility] [id number] [place] [address] Dec, Developmental disorder F89 a nd Anxiety F41.9 [facility] [id number] [place] [address] 14 Nov, 2017 Essential hypertension I10 ; Hyperlipidemia, unspecified hyperlipidemia E78.5 ; Nicotine abuse Z72.0 and Bilateral impacted cerumen H61.23 [facility] [address] [id number] [address] [place] [address] Oct, [facility] [id number] [place] [address] [phone] Sep, Encounter for dental exam an d cleaning w/o abnormal findings Z01.20 [facility] [address] [id number] [address] [place] [address] Sep, Medicare annual wellness vis it, initial Z00.00 and Encounter for immunization Z23 [facility] [address] [facility] [id number] [address] [place] [address] Aug, Encounter for immunization Z 23 ; Developmental disorder F89 and Anxiety F41.9 [facility] [address] [id number] [address] [place] [address] [phone] Jun, Encounter for dental examina tion and cleaning without abnormal findings Z01.20 [facility] [address] [id number] [address] [place] [address] Apr, Anxiety F41.9 and Developmen oscar disorder F89 [facility] [address] [facility] [id number] [address] [place] [address] Apr, Essential hypertension I10 a nd Nicotine abuse Z72.[id number] [place] [address] [phone] Mar, Dental examination Z01.20 [facility] [address] [id number] [address] [place] [address] [phone] Mar, Encounter for dental examina tion and cleaning without abnormal findings Z01.20 [facility] [address] [facility] [id number] [address] [place] [phone] Jan, [facility] [address] [facility] [id number] [address] [place] [address] Dec, Developmental disorder F89 a nd Anxiety F41.9 [facility] [address] [id number] [address] [place] [address] [phone] Dec, Encounter for dental examina tion and cleaning without abnormal findings Z01.20 [facility] [address] [facility] [id number] [address] [place] [address] Sep, Encounter for immunization Z 23 [facility] [address] [facility] [id number] [address] [place] [phone] 08 Sep, 2016 Prostate cancer screening Z1 2.5 and Hyperlipidemia, unspecified hyperlipidemia E78.5 [facility] [address] [facility] [id number] [address] [place] [address] Sep, Annual physical exam Z00.00 ; Encounter for immunization Z23 ; Essential hypertension I10 ; Hyperlipidemia, unspecified hyperlipidemia E78.5 ; Anxiety F41.9 ; Prostate cancer screening Z12.5 and Nicotine abuse Z72.0 [facility] [address] [facility] [id number] [address] [place] [address] Aug, [facility] [address] [facility] [id number] [address] [place] [address] Jul, Urinary incontinence, unspec ified type R32 [facility] [id number] [place] [address] [phone] Jul, Dental examination Z01.20 [facility] [address] [facility] [id number] [place] [address] Jul, Urinary incontinence, unspec ified type R32 [facility] [address] [facility] [id number] [address] [place] [address] Jul, Anxiety F41.9 and Developmen oscar disorder F89 [facility] [address] [id number] [address] [place] [address] [id number] May, Dental examination Z01.20 [place] [id number] [facility] [id number] [place] [address] [phone] Apr, Encounter for dental examination Z01.20 [facility] [id number] [place] [address] [phone] Apr, Encounter for dental examina tion and cleaning without abnormal findings Z01.20 [facility] [address] [facility] [id number] [address] [place] [address] Mar, Developmental disorder F89 a nd Anxiety F41.9 [facility] [address] [id number] [address] [place] [address] [phone] February, Dental examination Z01.20 [facility] [address] [facility] [id number] [address] [place] [phone] February, Essential hypertension I10 [facility] [address] [facility] [id number] [address] [place] [address] February, Arthralgia M25.50 [facility] [address] [facility] [id number] [address] [place] [address] [id number] Jan, Encounter for dental examina tion and cleaning without abnormal findings Z01.20 [facility] [address] [facility] [id number] [address] [place] [phone] Dec, [facility] [address] [facility] [id number] [address] [place] [address] Nov, Anxiety F41.9 and Developmen oscar disorder F89 [facility] [address] [id number] [address] [place] [phone] Nov, [facility] [address] [id number] [address] [place] [phone] Nov, [facility] [address] [id number] [address] [place] [phone] Oct, Hyperlipidemia, unspecified hyperlipidemia E78.5 [facility] [address] [id number] [address] [place] [phone] Oct, Essential hypertension I10 ; Hyperlipidemia, unspecified hyperlipidemia E78.5 and Prostate cancer screening Z12.5 [facility] [address] [id number] [address] [place] [phone] Oct, Essential hypertension I10 ; Hyperlipidemia, unspecified hyperlipidemia E78.5 ; Nicotine abuse Z72.0 ; Anxiety F41.9 ; Developmental disorder F89 and Prostate cancer screening Z12.5 [facility] [address] [facility] [id number] [address] [place] [phone] Aug, Anxiety F41.9 and Developmen oscar disorder F89 [facility] [address] [facility] [id number] [address] [place] [phone] Aug, Essential hypertension I10 a nd Encounter for immunization Z23 [facility] [address] [id number] [address] [place] [phone] Aug, Prostate cancer screening Z1 2.5 [facility] [address] [id number] [address] [place] [phone] Jun, Hypertension 401.9 [facility] [address] [id number] [address] [place] [id number] 18 Jun, 2015 [facility] [address] [address] May, Impulse control disorder, un specified 312.30 ; Generalized anxiety disorder 300.02 ; Other specified pervasive developmental disorders, 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 and 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 [facility] [address] [phone] Mar, Hypertension 401.9 [facility] [address] [id number] [place] [address] [id number] Mar, Dental examination V72.2 [facility] [address] [id number] [place] [phone] February, Hypertension 401.9 and Hyper lipidemia 272.4 [facility] [address] [id number] [address] [place] [phone] February, [facility] [address] [id number] [address] [place] [phone] February, Generalized anxiety disorder 300.02 ; Impulse control disorder 312.30 ; 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 and Benign essential HTN 401.1 [facility] [address] [id number] [place] [phone] Jan, [facility] [id number] [place] [phone] Jan, [facility] [address] [id number] [address] [place] [phone] Dec, [facility] [address] [id number] [address] [place] [address] Dec, [facility] [address] [id number] [address] [place] [address], [place] [address] 17 Dec, 2014 [facility] [address] [id number] [address] [place] [address], [place] [address] 17 Dec, 2014 [facility] [address] [id number] [address] [place] [address], [place] [address] 16 Dec, 2014 [facility] [address] [id number] [address] [place] [address], [place] [address] 16 Dec, 2014 [facility] [address] [id number] [address] [place] [address], [place] [address] 09 Dec, 2014 [facility] [address] [id number] [address] [place] [address], [place] [address] 09 Dec, 2014 [facility] [address] [id number] [address] [place] [address], [place] [address] 20 Nov, 2014 [facility] [address] [id number] [address] [place] [address], [place] [address] 20 Nov, 2014 [facility] [address] [id number] [address] [place] [address], [place] [address] 19 Nov, 2014 [facility] [address] [id number] [address] [place] [address], [place] [address] 19 Nov, 2014 [facility] [address] [id number] [address] [place] [phone] 18 Nov, 2014 [facility] [address] [id number] [address] [place] [phone] 18 Nov, 2014 [facility] [address] [id number] [address] [place] [address], [place] [address] 17 Nov, 2014 [facility] [address] [id number] [address] [place] [address], [place] [address] 17 Nov, 2014 [facility] [address] [id number] [address] [place] [phone] 15 Oct, 2014 [facility] [address] [id number] [address] [place] [phone] Oct, [facility] [address] [id number] [address] [place] [address], [place] [address] Oct, [facility] [address] [id number] [address] [place] [phone] Oct, [facility] [address] [id number] [address] [place] [address], [place] [address] Oct, [facility] [address] [id number] [address] [place] [address], [place] [address] Oct, [facility] [address] [id number] [address] [place] [address], [place] [address] Sep, [facility] [address] [id number] [address] [place] [address], [place] [address] Sep, [facility] [address] [id number] [address] [place] [address], [place] [address] Sep, [facility] [address] [id number] [address] [place] [address], [place] [address] Sep, [facility] [address] [id number] [address] [place] [address], [place] [address] Sep, [facility] [address] [id number] [address] [place] [address], [place] [address] Sep, [facility] [address] [id number] [address] [place] [address], [place] [address] Aug, [facility] [address] [id number] [address] [place] [address] Aug, [facility] [address] [id number] [address] [place] [address], [place] [address] Aug, [facility] [address] [id number] [address] [place] [address], [place] [address] Aug, [facility] [address] [id number] [address] [place] [address], [place] [address] Jul, [facility] [address] [id number] [address] [place] [address], [place] [address] Jul, [facility] [address] [id number] [address] [place] [address], [place] [address] May, [facility] [address] [id number] [address] [place] [address], [place] [address] May, [facility] [address] [id number] [address] [place] [address], [place] [address] Apr, [facility] [address] [id number] [address] [place] [address], [place] [address] Apr, [facility] [address] [id number] [address] [place] [address], [place] [address] Mar, [facility] [address] [id number] [address] [place] [address], [place] [address] Mar, [facility] [address] [id number] [address] [place] [address], [place] [address] Mar, [facility] [address] [id number] [address] [place] [address], [place] [address] Mar, [facility] [address] [id number] [address] [place] [address], [place] [address] February, [facility] [address] [id number] [address] [place] [address], [place] [address] February, [facility] [address] [id number] [address] [place] [address], [place] [address] Jan, [facility] [address] [id number] [address] [place] [address], [place] [address] Jan, [facility] [address] [id number] [address] [place] [address], [place] [address] Oct, [facility] [address] [id number] [address] [place] [address], [place] [address] Oct, [facility] [address] [id number] [address] [place] [address], [place] [address] Oct, [facility] [address] [id number] [address] [place] [address], [place] [address] Oct, [facility] [address] [id number] [address] [place] [address], [place] [address] Oct, [facility] [address] [id number] [address] [place] [address], [place] [address] Oct, [facility] [address] [id number] [address] [place] [address], [place] [address] Oct, [facility] [address] [id number] [address] [place] [address], [place] [address] Oct, [facility] [address] [id number] [address] [place] [address], [place] [address] Oct, [facility] [address] [id number] [address] [place] [address], [place] [address] Dec, [facility] [address] [id number] [address] [place] [address], [place] [address] Sep, [facility] [address] [id number] [address] [place] [address], [place] [address] Sep, [facility] [address] [id number] [address] [place] [address], [place] [address] May, [facility] [address] [id number] [address] [place] [address], [place] [address] Apr, [facility] [address] [id number] [address] [place] [address], [place] [address] Apr, [facility] [address] [id number] [address] [place] [address], [place] [address] Apr, [facility] [address] [id number] [place] [id number] February, [facility] [address] [id number] [address] [place] [address], [place] [address] Jan, [facility] [address] [id number] [address] [place] [address] Dec, [facility] [address] [id number] [address] [place] [address] Sep, [facility] [address] [id number] [address] [place] [address] Sep, [facility] [address] [id number] [address] [place] [address] Aug, [facility] [address] [id number] [address] [place] [address] Aug, [facility] [address] [id number] [address] [place] [address] Jul, [facility] [address] [id number] [address] [place] [address] Mar, [facility] [address] [id number] [address] [place] [phone] Mar, [facility] [address] [id number] [address] [place] [phone] Mar, IMMUNIZATIONS No Known Immunizations SOCIAL HISTORY Never Assessed REASON FOR VISIT ADULT OUTREACH [facility] PLAN OF CARE Activity Details Follow Up [...] Ordered Result Body Site PROPHYLAXIS - ADULT Jul 07, 2017 TOPICAL FLUORIDE VARNISH Jul 07, 2017 INSTRUCTIONS MEDICATIONS ADMINISTERED No Known Medications MEDICAL (GENERAL) HISTORY Type Description Date Medical History hyperlipidemia Medical History hypertension Medical History mood disorder Medical History mild mental retardation Medical History insomnia Medical History anxiety Medical History Asperger's Surgical History laser eye surgery
--- OUTSIDE RECORDS SUMMARY | 2020-01-04 10:22 | XMS REPORT ---
Author Author Anton ZUNIGA Organization [employer] Address Unknown Phone Unavailable Care Team Providers Care Asphalt Tamper Name Role Phone REY ZUNIGA CP Unavailable Allergies No Known Allergies Problems Problem Type Condition Code Onset Dates Condition Statu s Problem Anxiety F41.9 Active Problem Nicotine abuse Z72.0 Active Problem Developmental disorder F89 Activ e Assessment Encounter for dental examination Z01.20 Active Problem Essential hypertension I10 Activ e Problem Hyperlipidemia, unspecified hyperlipidemia E78.5 Active Medications No Known Medications Procedures Procedure Coding System Code Date Dental no charge CPT-4 D0099 May 06, 2016 Results No Known Results Summary Purpose [employer] Submission
--- OUTSIDE RECORDS SUMMARY | 2020-01-04 10:22 | XMS REPORT ---
Author Author Anton CHAVEZ Organization [facility] Address [address] [place] [address] Care Team Providers Care New Business Clerk Name Role Phone MIKE CHAVEZINDA Unavailable PROBLEMS Type Condition ICD9-CM Code OFF68-HH Code Onset Dates Condition S tatus SNOMED Code Problem Urinary incontinence, unspecified type R32 Active 346326249 Problem Developmental disorder F89 Active 1755907 Problem Nicotine abuse Z72.0 Active 57466 008 Problem Hyperlipidemia, unspecified hyperlipidemia E78.5 Active 99469703 Problem Anxiety F41.9 Active 15713561 Problem Essential hypertension I10 Active 99820520 ALLERGIES No Known Allergies ENCOUNTERS Encounter Location Date Diagnosis [facility] [address] [id number] [address] [place] [phone] Apr, [facility] [address] [id number] [address] [place] [address] Jan, [facility] [address] [id number] [address] [place] [address] Dec, Developmental disorder F89 a nd Anxiety F41.9 [facility] [address] [id number] [address] [place] [phone] 14 Nov, 2017 Essential hypertension I10 ; Hyperlipidemia, unspecified hyperlipidemia E78.5 ; Nicotine abuse Z72.0 and Bilateral impacted cerumen H61.23 [facility] [address] [place] [address] Oct, [facility] [address] [facility] [id number] [address] [place] [address] [phone] Sep, Encounter for dental exam an d cleaning w/o abnormal findings Z01.20 [facility] [address] [id number] [address] [place] [address] Sep, Medicare annual wellness vis it, initial Z00.00 and Encounter for immunization Z23 [facility] [address] [facility] [id number] [address] [place] [address] Aug, Encounter for immunization Z 23 ; Developmental disorder F89 and Anxiety F41.9 [facility] [address] [id number] [address] [place] [address] [phone] 13 Jun, 2017 Encounter for dental examina tion and cleaning without abnormal findings Z01.20 [facility] [address] [id number] [address] [place] [address] Apr, Anxiety F41.9 and Developmen oscar disorder F89 [facility] [address] [facility] [id number] [address] [place] [address] Apr, Essential hypertension I10 a nd Nicotine abuse Z72.[id number] [place] [address] [phone] Mar, Dental examination Z01.20 [facility] [address] [id number] [address] [place] [address] [phone] Mar, Encounter for dental examina tion and cleaning without abnormal findings Z01.20 [facility] [address] [id number] [address] [place] [phone] 05 Jan, 2017 [facility] [address] [facility] [id number] [address] [place] [phone] Dec, Developmental disorder F89 a nd Anxiety F41.9 [facility] [address] [id number] [address] [place] [address] [phone] Dec, Encounter for dental examina tion and cleaning without abnormal findings Z01.20 [facility] [address] [facility] [id number] [address] [place] [phone] Sep, Encounter for immunization Z 23 [facility] [address] [facility] [id number] [address] [place] [phone] 08 Sep, 2016 Prostate cancer screening Z1 2.5 and Hyperlipidemia, unspecified hyperlipidemia E78.5 [place] [address] [address] [facility] [id number] [address] [place] [phone] 06 Sep, 2016 Annual physical exam Z00.00 ; Encounter for immunization Z23 ; Essential hypertension I10 ; Hyperlipidemia, unspecified hyperlipidemia E78.5 ; Anxiety F41.9 ; Prostate cancer screening Z12.5 and Nicotine abuse Z72.0 [facility] [address] [facility] [id number] [address] [place] [phone] Aug, [facility] [address] [facility] [id number] [address] [place] [address] Jul, Urinary incontinence, unspec ified type R32 [facility] [id number] [id number] Jul, Dental examination Z01.20 [facility] [address] [facility] [id number] [address] [place] [phone] Jul, Urinary incontinence, unspec ified type R32 [facility] [address] [facility] [id number] [address] [place] [address] Jul, Anxiety F41.9 and Developmen oscar disorder F89 [facility] [id number] [place] [address] [phone] May, Dental examination Z01.[id number] [place] [address] [phone] Apr, Encounter for dental examination Z01.20 [facility] [address] [id number] [place] [address] [phone] Apr, Encounter for dental examina tion and cleaning without abnormal findings Z01.20 [facility] [address] [id number] [address] [place] [address] Mar, Developmental disorder F89 a nd Anxiety F41.9 [facility] [address] [id number] [address] [place] [address] [phone] February, Dental examination Z01.20 [facility] [address] [id number] [address] [place] [phone] February, Essential hypertension I10 [facility] [address] [facility] [id number] [address] [place] [phone] February, Arthralgia M25.50 [facility] [address] [facility] [id number] [address] [place] [address] [phone] Jan, Encounter for dental examina tion and cleaning without abnormal findings Z01.20 [facility] [address] [id number] [address] [place] [phone] Dec, [facility] [address] [id number] [address] [place] [phone] Nov, Anxiety F41.9 and Developmen oscar disorder F89 [address] [id number] [address] [place] [phone] Nov, [facility] [address] [place] [phone] Nov, [facility] [address] [id number] [address] [place] [address] Oct, Hyperlipidemia, unspecified hyperlipidemia E78.5 [address] [place] [address] Oct, Essential hypertension I10 ; Hyperlipidemia, unspecified hyperlipidemia E78.5 and Prostate cancer screening Z12.5 [address] [address] [place] [address] Oct, Essential hypertension I10 ; Hyperlipidemia, unspecified hyperlipidemia E78.5 ; Nicotine abuse Z72.0 ; Anxiety F41.9 ; Developmental disorder F89 and Prostate cancer screening Z12.5 [facility] [address] [id number] [address] [place] [phone] Aug, Anxiety F41.9 and Developmen oscar disorder F89 [facility] [address] [id number] [address] [place] [phone] Aug, Encounter for immunization Z 23 and Essential hypertension I10 [facility] [address] [facility] [id number] [address] [place] [phone] Aug, Prostate cancer screening Z1 2.5 [facility] [address] [facility] [id number] [address] [place] [phone] 29 Jun, 2015 Hypertension 401.9 [facility] [address] [facility] [id number] [address] [place] [phone] 18 Jun, 2015 [facility] [address] [id number] [address] [place] [address] May, Impulse control disorder, un specified 312.30 ; Generalized anxiety disorder 300.02 ; Other specified pervasive developmental disorders, 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 and 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 [facility] [address] [id number] [address] [place] [phone] Mar, Hypertension 401.9 [facility] [address] [facility] [id number] [address] [place] [address] [phone] Mar, Dental examination V72.2 [facility] [address] [id number] [address] [place] [phone] February, Hypertension 401.9 and Hyper lipidemia 272.4 [facility] [address] [id number] [address] [place] [phone] February, [facility] [address] [id number] [address] [place] [phone] February, Generalized anxiety disorder 300.02 ; Impulse control disorder 312.30 ; 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 [address] [id number] [address] [place] [address], [place] [address] 17 Dec, 2014 [facility] [address] [id number] [address] [place] [address], [place] [address] 17 Dec, 2014 [facility] [address] [id number] [address] [place] [address], [place] [address] 16 Dec, 2014 [facility] [address] [id number] [address] [place] [address], [place] [address] 16 Dec, 2014 [facility] [address] [id number] [address] [place] [address], [place] [address] 09 Dec, 2014 [facility] [address] [id number] [address] [place] [address], [place] [address] 09 Dec, 2014 [facility] [address] [id number] [address] [place] [address], [place] [address] 20 Nov, 2014 [facility] [address] [id number] [address] [place] [address], [place] [address] 20 Nov, 2014 [facility] [address] [id number] [address] [place] [address], [place] [address] 19 Nov, 2014 [facility] [address] [id number] [address] [place] [address], [place] [address] 19 Nov, 2014 [facility] [address] [id number] [address] [place] [address], [place] [address] 18 Nov, 2014 [facility] [address] [id number] [address] [place] [address], [place] [address] 18 Nov, 2014 [facility] [address] [id number] [address] [place] [address], [place] [address] 17 Nov, 2014 [facility] [address] [id number] [address] [place] [address], [place] [address] 17 Nov, 2014 [facility] [address] [id number] [address] [place] [address], [place] [address] 15 Oct, 2014 [facility] [address] [id number] [address] [place] [address], [place] [address] Oct, [facility] [address] [id number] [address] [place] [address], [place] [address] Oct, [facility] [address] [id number] [address] [place] [address], [place] [address] Oct, [facility] [address] [id number] [address] [place] [address], [place] [address] Oct, [facility] [address] [id number] [address] [place] [address], [place] [address] Oct, [facility] [address] [id number] [address] [place] [address], [place] [address] Sep, [facility] [address] [id number] [address] [place] [address], [place] [address] Sep, [facility] [address] [id number] [address] [place] [address], [place] [address] Sep, [facility] [address] [id number] [address] [place] [address], [place] [address] Sep, [facility] [address] [id number] [address] [place] [address], [place] [address] Sep, [facility] [address] [id number] [address] [place] [address], [place] [address] Sep, [facility] [address] [id number] [address] [place] [address], [place] [address] Aug, [facility] [address] [id number] [address] [place] [address], [place] [address] Aug, [facility] [address] [id number] [address] [place] [address], [place] [address] Aug, [facility] [address] [id number] [address] [place] [address], [place] [address] Aug, [facility] [address] [id number] [address] [place] [address], [place] [address] Jul, [facility] [address] [id number] [address] [place] [address], [place] [address] Jul, [facility] [address] [id number] [address] [place] [address], [place] [address] May, [facility] [address] [id number] [address] [place] [address], [place] [address] May, [facility] [address] [id number] [address] [place] [address], [place] [address] Apr, [facility] [address] [id number] [address] [place] [address], [place] [address] Apr, [facility] [address] [id number] [address] [place] [address], [place] [address] Mar, [facility] [address] [id number] [address] [place] [address], [place] [address] Mar, [facility] [address] [id number] [address] [place] [address], [place] [address] Mar, [facility] [address] [id number] [address] [place] [address], [place] [address] Mar, [facility] [address] [id number] [address] [place] [address], [place] [address] February, [facility] [address] [id number] [address] [place] [address], [place] [address] February, [facility] [address] [id number] [address] [place] [address], [place] [address] Jan, [facility] [address] [id number] [address] [place] [address], [place] [address] Jan, [facility] [address] [id number] [address] [place] [address], [place] [address] Oct, [facility] [address] [id number] [address] [place] [address], [place] [address] Oct, [facility] [address] [id number] [address] [place] [address], [place] [address] Oct, [facility] [address] [id number] [address] [place] [address], [place] [address] Oct, [facility] [address] [id number] [address] [place] [address], [place] [address] Oct, [facility] [address] [id number] [address] [place] [address], [place] [address] Oct, [facility] [address] [id number] [address] [place] [address], [place] [address] Oct, [facility] [address] [id number] [address] [place] [address], [place] [address] Oct, [facility] [address] [id number] [address] [place] [address], [place] [address] Oct, [facility] [address] [id number] [address] [place] [address], [place] [address] Dec, [facility] [address] [id number] [address] [place] [address], [place] [address] Sep, [facility] [address] [id number] [address] [place] [address], [place] [address] Sep, [facility] [address] [id number] [address] [place] [address], [place] [address] May, [facility] [address] [id number] [address] [place] [address], [place] [address] Apr, [facility] [address] [id number] [address] [place] [address], [place] [address] Apr, [facility] [address] [id number] [address] [place] [address], [place] [address] Apr, [facility] [place] [address] [id number] [id number] February, [facility] [address] [id number] [address] [place] [address], [place] [address] Jan, [facility] [address] [id number] [address] [place] [address] Dec, [facility] [address] [id number] [address] [place] [address] Sep, [facility] [address] [id number] [address] [place] [address] Sep, [facility] [address] [id number] [address] [place] [address] Aug, [facility] [address] [id number] [address] [place] [address] Aug, [facility] [address] [id number] [address] [place] [address] Jul, [facility] [address] [id number] [address] [place] [address] Mar, [facility] [address] [id number] [address] [place] [address] Mar, [facility] [address] [id number] [address] [place] [address] Mar, IMMUNIZATIONS No Known Immunizations SOCIAL HISTORY Never Assessed REASON FOR VISIT f/ISABELLA Child PLAN OF CARE Activity Details Follow Up 4 Months Reason: VITAL SIGNS Height 68 in 2017-05-20 Weight 187 lbs 2017-05-20 Heart Rate 80 bpm 2017-05-20 Respiratory Rate 20 2017-05-20 BMI 28.43 kg/m2 2017-05-20 Blood pressure systolic 160 mmHg 2017-05-20 Blood pressure diastolic 94 mmHg 2017-05-20 MEDICATIONS Medication Instructions Dosage Frequency Start Date [...] Date Ordered Result Body Site [facility] VISIT ESTABLISHED PATIENT May 20, 2017 INSTRUCTIONS MEDICATIONS ADMINISTERED No Known Medications MEDICAL (GENERAL) HISTORY Type Description Date Medical History hyperlipidemia Medical History hypertension Medical History mood disorder Medical History mild mental retardation Medical History insomnia Medical History anxiety Medical History Asperger's Surgical History laser eye surgery
--- OUTSIDE RECORDS SUMMARY | 2020-01-04 10:22 | XMS REPORT ---
Author Author Anton FAY [facility] [employer] Address Unknown Phone Unavailable Care Team Providers Care Insole Beveler Name Role Phone TWAN FAY CP Unavailable Allergies No Known Allergies Problems Problem Type Condition Code Onset Dates Condition Statu s Problem Anxiety F41.9 Active Problem Nicotine abuse Z72.0 Active Problem Developmental disorder F89 Activ e Assessment Hyperlipidemia, unspecified hyperlipidemia E78.5 Active Problem Essential hypertension I10 Activ e Problem Hyperlipidemia, unspecified hyperlipidemia E78.5 Active Medications Medication Code System Code Instructions Start Date End Date Status Dosage Lipitor [facility] [address]-29 20 MG Orally Once a day Nov 14, 2015 1 tablet Results No Known Results Summary Purpose [employer]Clinical[employer] Submission
--- OUTSIDE RECORDS SUMMARY | 2020-01-04 10:23 | XMS REPORT | Continuity of Care Document ---
Author Organization Unknown Address Unknown Phone Unavailable Allergies Active Description Code Type Severity Reaction Onset Reported/Identified Relationship to Patient Clinical Status Yes No Known Drug Allergies [id number] Drug Allergy Unknown N/A 12/26/2019 Medications There is no data. Problems Date Dx Coded Attending Type Code Diagnosis Diagnosed By 07/28/2008 MAYNOR BREWSTER DO 296 .90 UNSPECIFIED EPISODIC MOOD DISORDER 07/28/2008 TWAN FAY APRN S 296.90 UNSPECIFIED EPISODIC MOOD DISORDER 07/28/2008 TWAN FAY APRN S 296.90 UNSPECIFIED EPISODIC MOOD DISORDER 07/28/2008 CHRISTIANO CHAVEZ APRNA J 296.90 UNSPECIFIED EPISODIC MOOD DISORDER 07/28/2008 CHRISTIANO CHAVEZ APRNA J 296.90 UNSPECIFIED EPISODIC MOOD DISORDER 07/28/2008 CHRISTIANO CHAVEZ APRNA J 296.90 UNSPECIFIED EPISODIC MOOD DISORDER 07/28/2008 MIKE CHAVEZ APRNINDA J 296.90 UNSPECIFIED EPISODIC MOOD DISORDER 07/28/2008 CHRISTIANO CHAVEZ APRNA J 296.90 UNSPECIFIED EPISODIC MOOD DISORDER 07/28/2008 CHRISTIANO CHAVEZ APRNA J 296.90 UNSPECIFIED EPISODIC MOOD DISORDER 07/28/2008 LEONELA FAY APRNNDA S 296.90 UNSPECIFIED EPISODIC MOOD DISORDER 07/28/2008 CHRISTIANO CHAVEZ APRNA J 296.90 UNSPECIFIED EPISODIC MOOD DISORDER 07/28/2008 MIKE CHAVEZ APRNINDA J 296.90 UNSPECIFIED EPISODIC MOOD DISORDER 07/28/2008 LEONELA FAY APRNNDA S 296.90 UNSPECIFIED EPISODIC MOOD DISORDER 07/28/2008 CHRISTIANO CHAVEZ APRNA J 296.90 UNSPECIFIED EPISODIC MOOD DISORDER 04/12/2009 MAYNOR BREWSTER DO 401 .1 BENIGN ESSENTIAL HYPERTENSION 04/12/2009 TWAN FAY APRN S 401.1 BENIGN ESSENTIAL HYPERTENSION 04/12/2009 TWAN FAY APRN S 401.1 BENIGN ESSENTIAL HYPERTENSION 04/12/2009 SCOTT DEMURRAGE CLERK, ARIEL J 401.1 BENIGN ESSENTIAL HYPERTENSION 04/12/2009 SCOTT DEMURRAGE CLERK, ARIEL J 401.1 BENIGN ESSENTIAL HYPERTENSION 04/12/2009 SCOTT DEMURRAGE CLERK, ARIEL J 401.1 BENIGN ESSENTIAL HYPERTENSION 04/12/2009 SCOTT DEMURRAGE CLERK, ARIEL J 401.1 BENIGN ESSENTIAL HYPERTENSION 04/12/2009 SCOTT DEMURRAGE CLERK, ARIEL J 401.1 BENIGN ESSENTIAL HYPERTENSION 04/12/2009 SCOTT DEMURRAGE CLERK, ARIEL J 401.1 BENIGN ESSENTIAL HYPERTENSION 04/12/2009 LEONELA FAY APRNNDA S 401.1 BENIGN ESSENTIAL HYPERTENSION 04/12/2009 SCOTT DEMURRAGE CLERK, ARIEL J 401.1 BENIGN ESSENTIAL HYPERTENSION 04/12/2009 SCOTT DEMURRAGE CLERK, ARIEL J 401.1 BENIGN ESSENTIAL HYPERTENSION 04/12/2009 LEONELA FAY APRNNDA S 401.1 BENIGN ESSENTIAL HYPERTENSION 04/12/2009 SCOTT GIRONN, ARIEL J 401.1 BENIGN ESSENTIAL HYPERTENSION 05/03/2009 ELLY BREWSTER DOEN F 317 MILD MENTAL RETARDATION 05/03/2009 LEONELA FAY APRNNDA S 317 MILD MENTAL RETARDATION 05/03/2009 LEONELA FAY APRNNDA S 317 MILD MENTAL RETARDATION 05/03/2009 SCOTT DEMURRAGE CLERK, ARIEL J 317 MILD MENTAL RETARDATION 05/03/2009 SCOTT DEMURRAGE CLERK, ARIEL J 317 MILD MENTAL RETARDATION 05/03/2009 SCOTT DEMURRAGE CLERK, ARIEL J 317 MILD MENTAL RETARDATION 05/03/2009 SCOTT DEMURRAGE CLERK, ARIEL J 317 MILD MENTAL RETARDATION 05/03/2009 SCOTT DEMURRAGE CLERK, ARIEL J 317 MILD MENTAL RETARDATION 05/03/2009 SCOTT DEMURRAGE CLERK, ARIEL J 317 MILD MENTAL RETARDATION 05/03/2009 SUMEET GOMEZ TWAN S 317 MILD MENTAL RETARDATION 05/03/2009 SCOTT DEMURRAGE CLERK, ARIEL J 317 MILD MENTAL RETARDATION 05/03/2009 SCOTT DEMURRAGE CLERK, ARIEL J 317 MILD MENTAL RETARDATION 05/03/2009 LEONELA FAY APRNNDA S 317 MILD MENTAL RETARDATION 05/03/2009 SCOTT DEMURRAGE CLERK, ARIEL J 317 MILD MENTAL RETARDATION 05/22/2009 NEY DO, MAYNOR F 307 .47 SI DYSSOMNIA NOS 05/22/2009 TWAN FAY APRN S 307.47 SI DYSSOMNIA NOS 05/22/2009 SUMEET GOMEZ, TWAN S 307.47 SI DYSSOMNIA NOS 05/22/2009 SCOTT DEMURRAGE CLERK, ARIEL J 307.47 SI DYSSOMNIA NOS 05/22/2009 SCOTT DEMURRAGE CLERK, ARIEL J 307.47 SI DYSSOMNIA NOS 05/22/2009 SCOTT DEMURRAGE CLERK, ARIEL J 307.47 SI DYSSOMNIA NOS 05/22/2009 SCOTT DEMURRAGE CLERK, ARIEL J 307.47 SI DYSSOMNIA NOS 05/22/2009 SCOTT DEMURRAGE CLERK, ARIEL J 307.47 SI DYSSOMNIA NOS 05/22/2009 SCOTT DEMURRAGE CLERK, ARIEL J 307.47 SI DYSSOMNIA NOS 05/22/2009 SUMEET DEMURRAGE CLERK, TWAN S 307.47 SI DYSSOMNIA NOS 05/22/2009 SCOTT DEMURRAGE CLERK, ARIEL J 307.47 SI DYSSOMNIA NOS 05/22/2009 SCOTT DEMURRAGE CLERK, ARIEL J 307.47 SI DYSSOMNIA NOS 05/22/2009 SUMEET DEMURRAGE CLERK, TWAN S 307.47 SI DYSSOMNIA NOS 05/22/2009 SCOTT DEMURRAGE CLERK, ARIEL J 307.47 SI DYSSOMNIA NOS 10/29/2010 MAYNOR BREWSTER DO F 312 .30 IMPULSE CONTROL DISORDER UNSPECIFIED 10/29/2010 ELLY BREWSTER DOEN F V58 .69 LONG-TERM (CURRENT) USE OF OTHER MEDICATIONS 10/29/2010 SUMEET GOMEZ TWAN S 312.30 IMPULSE CONTROL DISORDER UNSPECIFIED 10/29/2010 LEONELA FAY APRNNDA S V58.69 LONG-TERM (CURRENT) USE OF OTHER MEDICATIONS 10/29/2010 SUMEET GOMEZ TWAN S 312.30 IMPULSE CONTROL DISORDER UNSPECIFIED 10/29/2010 SUMEET GOMEZ, TWAN S V58.69 LONG-TERM (CURRENT) USE OF OTHER MEDICATIONS 10/29/2010 SCOTT DEMURRAGE CLERK, ARIEL J 312.30 IMPULSE CONTROL DISORDER UNSPECIFIED 10/29/2010 SCOTT DEMURRAGE CLERK, ARIEL J V58.69 LONG-TERM (CURRENT) USE OF OTHER MEDICATIONS 10/29/2010 SCOTT DEMURRAGE CLERK, ARIEL J 312.30 IMPULSE CONTROL DISORDER UNSPECIFIED 10/29/2010 SCOTT DEMURRAGE CLERK, ARIEL J V58.69 LONG-TERM (CURRENT) USE OF OTHER MEDICATIONS 10/29/2010 CHRISTIANO CHAVEZ APRNA J 312.30 IMPULSE CONTROL DISORDER UNSPECIFIED 10/29/2010 CHRISTIANO CHAVEZ APRNA Evangelina V58.69 LONG-TERM (CURRENT) USE OF OTHER MEDICATIONS 10/29/2010 CHRISTIANO CHAVEZ APRNA J 312.30 IMPULSE CONTROL DISORDER UNSPECIFIED 10/29/2010 CHRISTIANO CHAVEZ APRNA Evangelina V58.69 LONG-TERM (CURRENT) USE OF OTHER MEDICATIONS 10/29/2010 CHRISTIANO CHAVEZ APRNA J 312.30 IMPULSE CONTROL DISORDER UNSPECIFIED 10/29/2010 CHRISTIANO CHAVEZ APRNA J V58.69 LONG-TERM (CURRENT) USE OF OTHER MEDICATIONS 10/29/2010 CHRISTIANO CHAVEZ APRNA J 312.30 IMPULSE CONTROL DISORDER UNSPECIFIED 10/29/2010 CHRISTIANO CHAVEZ APRNA Evangelina V58.69 LONG-TERM (CURRENT) USE OF OTHER MEDICATIONS 10/29/2010 TWAN FAY APRN S 312.30 IMPULSE CONTROL DISORDER UNSPECIFIED 10/29/2010 TWAN FAY APRN S V58.69 LONG-TERM (CURRENT) USE OF OTHER MEDICATIONS 10/29/2010 CHRISTIANO CHAVEZ APRNA J 312.30 IMPULSE CONTROL DISORDER UNSPECIFIED 10/29/2010 CHRISTIANO CHAVEZ APRNA Evangelina V58.69 LONG-TERM (CURRENT) USE OF OTHER MEDICATIONS 10/29/2010 CHRISTIANO CHAVEZ APRNA J 312.30 IMPULSE CONTROL DISORDER UNSPECIFIED 10/29/2010 CHRISTIANO CHAVEZ APRNA Evangelina V58.69 LONG-TERM (CURRENT) USE OF OTHER MEDICATIONS 10/29/2010 TWAN FAY APRN S 312.30 IMPULSE CONTROL DISORDER UNSPECIFIED 10/29/2010 VIJI FAY APRNA S V58.69 LONG-TERM (CURRENT) USE OF OTHER MEDICATIONS 10/29/2010 MIKE CHAVEZ APRNINDA J 312.30 IMPULSE CONTROL DISORDER UNSPECIFIED 10/29/2010 CHRISTIANO CHAVEZ APRNA J V58.69 LONG-TERM (CURRENT) USE OF OTHER MEDICATIONS 04/08/2011 MAYNOR BREWSTER DO 319 UNSPECIFIED MENTAL RETARDATION 04/08/2011 TWAN FAY APRN S 319 UNSPECIFIED MENTAL RETARDATION 04/08/2011 SUMEET DEMURRAGE CLERK, TWAN S 319 UNSPECIFIED MENTAL RETARDATION 04/08/2011 SCOTT DEMURRAGE CLERK, ARIEL J 319 UNSPECIFIED MENTAL RETARDATION 04/08/2011 SCOTT DEMURRAGE CLERK, ARIEL J 319 UNSPECIFIED MENTAL RETARDATION 04/08/2011 SCOTT DEMURRAGE CLERK, ARIEL J 319 UNSPECIFIED MENTAL RETARDATION 04/08/2011 SCOTT DEMURRAGE CLERK, ARIEL J 319 UNSPECIFIED MENTAL RETARDATION 04/08/2011 SCOTT DEMURRAGE CLERK, ARIEL J 319 UNSPECIFIED MENTAL RETARDATION 04/08/2011 SCOTT DEMURRAGE CLERK, ARIEL J 319 UNSPECIFIED MENTAL RETARDATION 04/08/2011 VIJI FAY APRNA S 319 UNSPECIFIED MENTAL RETARDATION 04/08/2011 SCOTT DEMURRAGE CLERK, ARIEL J 319 UNSPECIFIED MENTAL RETARDATION 04/08/2011 SCOTT DEMURRAGE CLERK, ARIEL J 319 UNSPECIFIED MENTAL RETARDATION 04/08/2011 TWAN FAY APRN S 319 UNSPECIFIED MENTAL RETARDATION 04/08/2011 SCOTT GOMEZ, ARIEL J 319 UNSPECIFIED MENTAL RETARDATION 04/10/2011 MAYNOR BREWSTER DO F 521 .00 UNSPECIFIED DENTAL CARIES 04/10/2011 MAYNOR BREWSTER DO F V22 .1 SUPERVISION OF OTHER NORMAL 04/10/2011 VIJI FAY APRNA S 521.00 UNSPECIFIED DENTAL CARIES 04/10/2011 TWAN FAY APRN S V22.1 SUPERVISION OF OTHER NORMAL 04/10/2011 VIJI FAY APRNA S 521.00 UNSPECIFIED DENTAL CARIES 04/10/2011 VIJI FAY APRNA S V22.1 SUPERVISION OF OTHER NORMAL 04/10/2011 CHRISTIANO CHAVEZ APRNA J 521.00 UNSPECIFIED DENTAL CARIES 04/10/2011 SCOTT GOMEZ ARIEL J V22.1 SUPERVISION OF OTHER NORMAL 04/10/2011 SCOTT GOMEZ, ARIEL J 521.00 UNSPECIFIED DENTAL CARIES 04/10/2011 SCOTT GOMEZ ARIEL J V22.1 SUPERVISION OF OTHER NORMAL 04/10/2011 SCOTT GOMEZ, ARIEL J 521.00 UNSPECIFIED DENTAL CARIES 04/10/2011 SCOTT GOMEZ ARIEL J V22.1 SUPERVISION OF OTHER NORMAL 04/10/2011 SCOTT GOMEZ ARIEL J 521.00 UNSPECIFIED DENTAL CARIES 04/10/2011 CHRISTIANO CHAVEZ APRNA J V22.1 SUPERVISION OF OTHER NORMAL 04/10/2011 CHRISTIANO CHAVEZ APRNA J 521.00 UNSPECIFIED DENTAL CARIES 04/10/2011 CHRISTIANO CHAVEZ APRNA J V22.1 SUPERVISION OF OTHER NORMAL 04/10/2011 CHRISTIANO CHAVEZ APRNA J 521.00 UNSPECIFIED DENTAL CARIES 04/10/2011 CHRISTIANO CHAVEZ APRNA J V22.1 SUPERVISION OF OTHER NORMAL 04/10/2011 LEONELA FAY APRNNDA S 521.00 UNSPECIFIED DENTAL CARIES 04/10/2011 LEONELA FAY APRNNDA S V22.1 SUPERVISION OF OTHER NORMAL 04/10/2011 CHRISTIANO CHAVEZ APRNA J 521.00 UNSPECIFIED DENTAL CARIES 04/10/2011 CHRISTIANO CHAVEZ APRNA J V22.1 SUPERVISION OF OTHER NORMAL 04/10/2011 CHRISTIANO CHAVEZ APRNA J 521.00 UNSPECIFIED DENTAL CARIES 04/10/2011 CHRISTIANO CHAVEZ APRNA J V22.1 SUPERVISION OF OTHER NORMAL 04/10/2011 LEONELA FAY APRNNDA S 521.00 UNSPECIFIED DENTAL CARIES 04/10/2011 LEONELA FAY APRNNDA S V22.1 SUPERVISION OF OTHER NORMAL 04/10/2011 CHRISTIANO CHAVEZ APRNA J 521.00 UNSPECIFIED DENTAL CARIES 04/10/2011 CHRISTIANO CHAVEZ APRNA J V22.1 SUPERVISION OF OTHER NORMAL 12/25/2011 MANYOR BREWSTER DO 299 .80 DV ASPERGERS 12/25/2011 VIJI FAY APRNA S 299.80 DV ASPERGERS 12/25/2011 TWAN FAY APRN S 299.80 DV ASPERGERS 12/25/2011 SCOTT GOMEZ ARIEL J 299.80 DV ASPERGERS 12/25/2011 CHRISTIANO CHAVEZ APRNA J 299.80 DV ASPERGERS 12/25/2011 CHRISTIANO CHAVEZ APRNA J 299.80 DV ASPERGERS 12/25/2011 CHRISTIANO CHAVEZ APRNA J 299.80 DV ASPERGERS 12/25/2011 CHRISTIANO CHAVEZ APRNA J 299.80 DV ASPERGERS 12/25/2011 CHRISTIANO CHAVEZ APRNA J 299.80 DV ASPERGERS 12/25/2011 VIJI FAY APRNA S 299.80 DV ASPERGERS 12/25/2011 MIKE CHAVEZ APRNINDA J 299.80 DV ASPERGERS 12/25/2011 SCOTT GOMEZ, ARIEL J 299.80 DV ASPERGERS 12/25/2011 VIJI FAY APRNA S 299.80 DV ASPERGERS 12/25/2011 MIKE CHAVEZ APRNINDA J 299.80 DV ASPERGERS 11/21/2013 VIJI FAY APRNA S V70.0 EXAM - ROUTINE H&P 11/21/2013 VIJI FAY APRNA S V70.0 EXAM - ROUTINE H&P 11/21/2013 SCOTT GOMEZ ARIEL J V70.0 EXAM - ROUTINE H&P 11/21/2013 SCOTT GOMEZ ARIEL J V70.0 EXAM - ROUTINE H&P 11/21/2013 MIKE CHAVEZ APRNINDA J V70.0 EXAM - ROUTINE H&P 11/21/2013 SCOTT GOMEZ ARIEL J V70.0 EXAM - ROUTINE H&P 11/21/2013 SCOTT GOMEZ ARIEL J V70.0 EXAM - ROUTINE H&P 11/21/2013 SCOTT GOMEZ ARIEL J V70.0 EXAM - ROUTINE H&P 11/21/2013 VIJI FAY APRNA S V70.0 EXAM - ROUTINE H&P 11/21/2013 SCOTT GOMEZ ARIEL J V70.0 EXAM - ROUTINE H&P 11/21/2013 SCOTT GOMEZ ARIEL J V70.0 EXAM - ROUTINE H&P 11/21/2013 VIJI FAY APRNA S V70.0 EXAM - ROUTINE H&P 11/21/2013 SCOTT GOMEZ ARIEL J V70.0 EXAM - ROUTINE H&P 01/25/2014 CHRISTIANO CHAVEZ APRNA J 300.02 AN GEN ANXIETY 01/25/2014 CHRISTIANO CHAVEZ APRNA J 300.02 AN GEN ANXIETY 01/25/2014 HCRISTIANO CHAVEZ APRNA J 300.02 AN GEN ANXIETY 01/25/2014 CHRISTIANO CHAVEZ APRNA J 300.02 AN GEN ANXIETY 01/25/2014 CHRISTIANO CHAVEZ APRNA J 300.02 AN GEN ANXIETY 01/25/2014 ARIEL CHAVEZ APRN J 300.02 AN GEN ANXIETY 01/25/2014 TWAN FAY APRN S 300.02 AN GEN ANXIETY 01/25/2014 ARIEL CHAVEZ APRN J 300.02 AN GEN ANXIETY 01/25/2014 ARIEL CHAVEZ APRN J 300.02 AN GEN ANXIETY 01/25/2014 TWAN FAY APRN S 300.02 AN GEN ANXIETY 01/25/2014 ARIEL CHAVEZ APRN J 300.02 AN GEN ANXIETY 09/25/2014 TWAN FAY APRN S V04.81 FLU SHOT 09/25/2014 ARIEL CHAVEZ APRN V04.81 FLU SHOT 09/25/2014 ARIEL CHAVEZ APRN J V04.81 FLU SHOT 09/25/2014 TWAN FAY APRN S V04.81 FLU SHOT 09/25/2014 ARIEL CHAVEZ APRN V04.81 FLU SHOT 09/27/2014 TWAN FAY APRN S V76.51 screening colonoscopy 09/27/2014 ARIEL CHAVEZ APRN V76.51 screening colonoscopy 09/27/2014 ARIEL CHAVEZ APRN V76.51 screening colonoscopy 09/27/2014 TWAN FAY APRN S V76.51 screening colonoscopy 09/27/2014 ARIEL CHAVEZ APRN V76.51 screening colonoscopy 11/15/2014 ZACH ISLAS DO Ot 562.10 DIVERTICULOSIS COLON (W/O MENT OF HEMORR 11/15/2014 ZACH ISLAS DO Ot 569.0 ANAL RECTAL POLYP 11/15/2014 ZACH ISLAS DO Ot V76.51 SCREEN MAL NEOP-COLON 01/09/2015 TWAN FAY APRN V15.82 NICOTINE ABUSE 01/09/2015 ARIEL CHAVEZ APRN V15.82 NICOTINE ABUSE 02/13/2015 ZACH ISLAS DO Ot V72.84 02/13/2015 ZACH ISLAS DO Ot V72.84 02/13/2015 ZACH ISLAS DO Ot V72.84 02/13/2015 ZACH ISLAS DO Ot V72.84 12/26/2019 RIGOBERTO BAIRES ZACH Ot V72.84 EXAM PRE-OPERATIVE NOS 12/26/2019 NICHOLAS ISLAS DOMAYCOL Ot V72.84 EXAM PRE-OPERATIVE NOS 12/26/2019 SANTI HERNÁNDEZ DO Ot Z01.818 ENCOUNTER FOR OTHER PREPROCEDURAL EXAMIN 12/27/2019 SANTI HERNÁNDEZ DO Ot Z01.818 ENCOUNTER FOR OTHER PREPROCEDURAL EXAMIN 01/02/2020 RIGOBERTO BAIRES NICHOLASMAYCOL Ot V72.84 EXAM PRE-OPERATIVE NOS Procedures Code Description [place] [address] CBC 11/22/2013 93922 CMP 11/22/2013 09187 LIPI D PANEL 11/22/2013 [id number] GF R CALC (RESULT ONLY) 11/22/2013 07083 TSH 11/22/2013 43196 ROUT INE VENIPUNCTURE 09/26/2014 30492 CBC 09/26/2014 9517318 GF R CALC (RESULT ONLY) 09/26/2014 72022 CMP 09/26/2014 19433 LIPI D PANEL 09/26/2014 General S RigobertoZach 10/09/2014 95619 ROUT INE VENIPUNCTURE 01/31/2015 93165 LIPI D PANEL 01/31/2015 Results Test Result Range [facility] - 11/09/19 08:06 GLUCOSE 142 mg/dL 65-99 UREA NITROGEN (BUN) 20 mg/dL 7-25 CREATININE 1.60 mg/dL 0.70-1.25 eGFR NON-AFR. MACEDONIAN 45 mL/min/1.73m2 > OR = 60 eGFR 52 mL/min/1.73m2 > OR = 60 BUN/CREATININE RATIO 13 (calc) 6-22 SODIUM 137 mmol/L 135-146 POTASSIUM 4.7 mmol/L 3.5-5.3 CHLORIDE 105 mmol/L 98-110 CARBON DIOXIDE 26 mmol/L 20-32 CALCIUM 8.9 mg/dL 8.6-10.3 PROTEIN, TOTAL 6.8 g/dL 6.1-8.1 ALBUMIN 4.2 g/dL 3.6-5.1 GLOBULIN 2.6 g/dL (calc) 1.9-3.7 ALBUMIN/GLOBULIN RATIO 1.6 (calc) 1.0-2. 5 BILIRUBIN, TOTAL 0.6 mg/dL 0.2-1.2 ALKALINE PHOSPHATASE 114 U/L 40-115 AST 10 U/L 10-35 ALT 9 U/L 9-46 Encounters ACCT No. Visit Date/Time Discharge Status Pt. Type Provider Facility Loc./Unit Complaint [id number] 10/03/2019 13:20:00 10/03/2019 23:59: 59 [facility] [id number] 11/09/2019 08:00:00 Document Registration [id number] 01/02/2020 09:23:00 11:35:00 DIS Outpatient SANTI HERNÁNDEZ DO [facility] ENDO HX POLYPS [id number] 12/26/2019 05:36:00 14:14:00 DIS Outpatient SANTI HERNÁNDEZ DO [facility] PREOP COLONOSCOPY [id number] 11/15/2014 12:08:00 015 15:40:00 DIS Outpatient ZACH ISLAS DO [facility] SDC SCREENING [id number] 11/14/2014 06:00:00 015 23:59:59 CLS Outpatient ZACH ISLAS DO [facility] PREOP SCREENING [id number] 01/09/2015 12:50:00 01/09/2015 23:59: 59 CLS Outpatient TWAN FAY APRN [id number] 01/08/2015 08:55:00 01/08/2015 23:59: 59 CLS Outpatient ARIEL CHAVEZ APRN [id number] 11/08/2014 09:55:00 11/08/2014 23:59: 59 CLS Outpatient ARIEL CHAVEZ APRN [id number] 09/26/2014 08:34:00 09/26/2014 23:59: 59 CLS Outpatient TWAN FAY APRN [id number] 09/13/2014 09:46:00 09/13/2014 23:59: 59 CLS Outpatient ARIEL CHAVEZ APRN [id number] 09/13/2014 09:46:00 09/13/2014 23:59: 59 CLS Outpatient ARIEL CHAVEZ APRN [id number] 08/02/2014 09:59:00 08/02/2014 23:59: 59 CLS Outpatient SCOTT GIRONNARIEL Evangelina [id number] 06/14/2014 11:07:00 06/14/2014 23:59: 59 CLS Outpatient SCOTT GIRONNARIEL Evangelina [id number] 05/08/2014 14:41:00 05/08/2014 23:59: 59 CLS Outpatient SCOTT GIRONKitty ARIEL Evangelina [id number] 01/25/2014 11:14:00 01/25/2014 23:59: 59 CLS Outpatient SCOTT GIRONNARIEL Evangelina [id number] 01/25/2014 11:14:00 01/25/2014 23:59: 59 CLS Outpatient SCOTT GIRONKitty ARIEL Evaneglina [id number] 11/21/2013 13:18:00 11/21/2013 23:59: 59 CLS Outpatient TWAN FAY APRN [id number] 11/21/2013 13:18:00 11/21/2013 23:59: 59 CLS Outpatient TWAN FAY APRN [id number] 04/25/2012 11:04:00 04/25/2012 23:59: 59 CLS Outpatient MAYNOR BREWSTER DO
== END 2020-01-02 11:35 ==
LOC: ENDO 09:23
PROVIDERS: ATTEND Surgery
DX: D12.0 Benign neoplasm of cecum (principal); D12.5 Benign neoplasm of sigmoid colon; D12.8 Benign neoplasm of rectum; K63.89 Other specified diseases of intestine; I10 Essential (primary) hypertension; Z87.891 Personal history of nicotine dependence; Z86.010 Personal history of colon polyps; Z79.899 Other long term (current) drug therapy

== ENCOUNTER 2020-01-23 10:30 | Outpatient (CLI) | payer MEDICARE, MEDICAID ==
[~2020-01-23] VITALS: Ht 172 cm; Wt 26.0 kg
== END 2020-01-23 11:39 | disposition home or self-care (01) ==
LOC: PREOP 10:30
PROVIDERS: ATTEND Surgery
DX: Z01.818 Encounter for other preprocedural examination (principal)

== ENCOUNTER 2020-01-25 09:50 | Inpatient (IN) | payer MEDICARE, MEDICAID ==
[~2020-01-25] VITALS: Ht 172 cm; Wt 76.7 kg
[2020-02-01] VITALS (11 sets, daily range): BP systolic 111–145; BP diastolic 64–90
--- OUTSIDE RECORDS SUMMARY | 2020-02-01 06:47 | XMS REPORT ---
Author Author [email or web address]. Organization [email or web address]. Address [address] [address] Care Team Providers Care Electrical Equipment Assembler Name Role Phone MIKE SWANN Unavailable Unavailable [...] SWANN Unavailable Unavailable GLORIA GOLDMAN Unavailable SUMEET, WTAN Unavailable SCOTT, ARIEL Unavailable Migration, Doctor Unavailable [...] Unavailable SCOTT, ARIEL Unavailable SCOTT, ARIEL Unavailable SUMEET TWAN Unavailable SUMEET TWAN S Unavailable Unavailable SCOTT, ARIEL Unavailable SCOTT, ARIEL Unavailable SCOTT, ARIEL Unavailable SCOTT, ARIEL Unavailable SUMEET TWAN Unavailable [facility] PCP [phone] TWAN FAY Unavailable DAKSHA ISLAS DO Unavailable Unavailable SANTI HERNÁNDEZ DO Unavailable Unavailable AUTUMN Gentile Unavailable MAYNOR Franklin Unavailable TWAN FAY Unavailable Unavailable Unavailable Allergies Normalized Allergy Reported Date of Reaction(s) Care Provider Facility Allergy Type classification allergen Allergy Onset Drug Allergy Opioid Morphine 01-23-2020 - no information MIREILLE MILLER Via (2 sources.) Agonists [facility] ([id number]) Medications Medication Ingredient Drug Dose Dates Status Sig Sig Care Class(es) (Normalized) (Original) Provid er amLODIPine amLODIPine Dihydropyri Active no Amlodipine no 5 mg oral dine information Besylate name tablet (3 Calcium Active 5 (no sources.) Channel ORAL Daily phone) Landon carvedilol carvedilol alpha-Adren Active no Carvedilol no 12.5 mg ergic information Active 12.5 name oral tablet Landon, ORAL Twice A (no (3 beta-Adrene Day phone) sources.) rgic Landon Problems Problem Normalized Date of Normalized Normalized Provider Fac ility Classification Problem(s) Problem Problem Problem Sta tus Onset/Resoluti Duration on Anal and Anal and 12-25-2019 - Episodic Active CHANDPARDEEP MCELROY H Via rectal rectal polyp DO ROSHAN Jada conditions (7 Hospital - sources.) Media (69790) Other and Benign 01-05-2020 - Episodic Active MIREILLE MILLER Via unspecified neoplasm of [facility] benign cecum Hospital - neoplasm (10 Media sources.) (07072) Other and Benign 01-05-2020 - Episodic Active SANTI HERNÁNDEZ , [facility] Via unspecified neoplasm of DO [facility] benign rectum Hospital - neoplasm (10 Media sources.) (27317) Other and Benign 01-05-2020 - Episodic Active SANTI HERNÁNDEZ , [facility] Via unspecified neoplasm of DO [facility] benign sigmoid colon Hospital - neoplasm (10 Media sources.) (87277) Diverticulosis Diverticulosis 12-25-2019 - Chronic Active JOSELIN NDROUTIE [facility] Via and of colon ROSHAN , DO [facility] diverticulitis (without Hospital - (7 sources.) mention of Media hemorrhage) (95896) Other Mass of Episodic Active [facility] gastrointestin digestive [facility] al disorders structure [address] [place] [address] (1 source.) ([address]385) Other Other long 01-05-2020 - Episodic Active SANTI HERNÁNDEZ , [facility] Via aftercare (10 term (current) DO [facility] sources.) drug therapy Hospital [facility] (61038) Other Other 01-05-2020 - Episodic Active SANTI HERNÁNDEZ , [facility] Via gastrointestin specified DO [facility] al disorders diseases of Hospital - (10 sources.) intestine Media (68063) Procedures Procedure Normalized Procedure Procedure Result Performer Facility Date 01-02-2020 Colonoscopy w/biopsy no information no name (no traci ne) [facility] single/multiple Hospital ([id number]) 01-02-2020 Colsc flx w/rmvl of no information no name (no phon e) [facility] tumor polyp lesion [facility] (33571) snare tq 05-04-2018 Dental prophylaxis no information no name (no phone ) [facility] (60985) 02-17-2018 Dental prophylaxis no information no name (no phone ) [facility] (81371) 08-09-2018 FQHC visit, estab pt no information no name (no traci ne) [facility] (24994) 07-20-2018 FQHC visit, estab pt no information no name (no traci ne) [facility] (93899) 05-04-2018 Topical fluoride no information no name (no phone) [facility] varnish [facility] (42504) 02-17-2018 Topical fluoride no information no name (no phone) [facility] varnish [facility] (52090) Immunizations Normalized Immunization Date Notes Care Provider Facili ty Immunization influenza, 10-02-2019 no information no name [facility] ealth injectable, [facility] quadrivalent, - [facility] contains (51705) preservative influenza, 07-20-2018 - no information TWAN FAY [address] [facility] injectable, 07-20-2018 [place], [place] ([address]) preservative free influenza, seasonal, 07-20-2018 no information TWAN FAY [address] [facility] injectable [facility] (39778) pneumococcal 11-01-2019 no information no name [facility] conjugate vaccine, [facility] 13 valent - [facility] (32156) no information 07-20-2018 no information TWAN FAY [address] [facility] (30517) Results Test Name Value Interpretation Reference Range Date Time Fa cility (Normalized) (Normalized) (Medline Reference) No panel information on 2019-11-09 Albumin 4.2 g/dL (N) 3.4 - 5.4 g/dL [facility] [Mass/Vol] [facility] (60058) Albumin/Globulin 1.6 {ratio} (N) 1 - 2.5 {ratio} Comm [facility] [Mass ratio] [facility] (67046) ALP [Catalytic 114 U/L (N) 44 - 147 U/L [facility] activity/Vol] [facility] (40793) ALT [Catalytic 9 U/L (N) 4 - 40 U/L [facility] ealt activity/Vol] [facility] (73045) AST [Catalytic 10 U/L (N) 10 - 34 U/L [facility] activity/Vol] [facility] (55637) Basophils (Bld) 0.022 10*3/uL (N) 0 - 0.3 10*3/uL [facility] [#/Vol] [facility] (22365) Basophils/100 0.4 % (N) 0.5 - 1 % Community alth WBC (Bld) [facility] (02805) Bilirubin 0.6 mg/dL (N) 0.1 - 1.2 mg/dL [facility] [Mass/Vol] [facility] (16890) Calcium 8.9 mg/dL (N) 8.5 - 10.2 mg/dL [facility] [Mass/Vol] [facility] (65759) Chloride 105 mmol/L (N) 95 - 106 mmol/L [facility] [Moles/Vol] [facility] (92480) Cholesterol 170 mg/dL (N) 180 - 200 mg/dL [facility] [Mass/Vol] [facility] (77979) Cholesterol in 37 mg/dL (L) [facility] HDL [Mass/Vol] [facility] (86323) Cholesterol in 107 mg/dL (H) 0 - 100 mg/dL [facility] LDL [Mass/Vol] [facility] (95330) Cholesterol non 133 mg/dL (H) [facility] HDL [Mass/Vol] [facility] (77682) Cholesterol.tota 4.6 {ratio} (N) [facility] Hea lth l/Cholesterol in [facility] HDL [Mass ratio] [facility] (60292) CO2 [Moles/Vol] 26 mmol/L (N) 23 - 29 mmol/L [facility] (73084) Creatinine 1.60 mg/dL (H) [facility] h [Mass/Vol] [facility] (14845) Eosinophils 0.072 10*3/uL (N) 0.05 - 0.5 Community He alth (Bld) [#/Vol] 10*3/uL [facility] (70383) Eosinophils/100 1.3 % (N) 1 - 4 % [facility] WBC (Bld) [facility] (31491) Erythrocyte 13.0 % (N) 11.6 - 14.6 % Community H ealth distribution [facility] width (RBC) [facility] [Ratio] (16532) GFR/1.73 sq M 52 (L) 90 - 120 [facility] He alth predicted among mL/min/{1.73_m2} mL/min/{1.73_m2} Center o f [facility] blacks MDRD [facility] (S/P/Bld) [Vol (26417) rate/Area] GFR/1.73 sq 45 (L) 90 - 120 [facility] M.predicted MDRD mL/min/{1.73_m2} mL/min/{1.73_m2} [facility] (S/P/Bld) [Vol [facility] rate/Area] (36419) Globulin (S) 2.6 g/dL (N) 2 - 3.5 g/dL [facility] ealt [Mass/Vol] [facility] (51717) Glucose 142 mg/dL (H) 60 - 125 mg/dL [facility] [Mass/Vol] [facility] (29249) Hematocrit (Bld) 47.1 % (N) 36.1 - 50.3 % [facility] [Volume [facility] (62307) Hemoglobin (Bld) 15.1 g/dL (N) 12.1 - 17.2 g/dL [facility] [Mass/Vol] [facility] (83554) Lymphocytes 1.1 10*3/uL (N) 0.9 - 2.9 [facility] (Bld) [#/Vol] 10*3/uL [facility] (01175) Lymphocytes/100 20.0 % (N) 20 - 40 % [facility] WBC (Bld) [facility] (66275) MCH (RBC) 27.6 pg (N) 27 - 31 pg [facility] [Entitic mass] [facility] (98759) MCHC (RBC) 32.1 g/dL (N) 32 - 36 g/dL [facility] [Mass/Vol] [facility] (69696) MCV (RBC) 85.9 fL (N) 80 - 100 fL [facility] lt [Entitic vol] [facility] (63575) Monocytes (Bld) 0.495 10*3/uL (N) 0.3 - 0.9 [facility] [#/Vol] 10*3/uL [facility] (87047) Monocytes/100 9.0 % (N) 2 - 8 % Community [facility] alth WBC (Bld) [facility] (15724) Neutrophils 3.812 10*3/uL (N) 1.7 - 7 10*3/uL [facility] (Bld) [#/Vol] [facility] (07436) Neutrophils/100 69.3 % (N) 40 - 60 % [facility] WBC (Bld) [facility] (81581) Platelet mean 11.3 fL (N) 7.2 - 11.7 fL [facility] volume (Bld) [facility] [Entitic vol] [facility] (86179) Platelets (Bld) 155 10*3/uL (N) 150 - 450 [facility] [#/Vol] 10*3/uL [facility] (83189) Potassium 4.7 mmol/L (N) 3.7 - 5.2 mmol/L [facility] [Moles/Vol] [facility] (88690) Prostate 0.5 ng/mL (N) 0 - 4 ng/mL [facility] Hea lth specific Ag [facility] [Mass/Vol] [facility] (27756) Protein 6.8 g/dL (N) 6.4 - 8.3 g/dL [facility] [Mass/Vol] [facility] (33205) RBC (Bld) 5.48 10*6/uL (N) 4.2 - 6.1 [facility] Hea lth [#/Vol] 10*6/uL [facility] (18513) Sodium 137 mmol/L (N) 135 - 145 mmol/L [facility] [Moles/Vol] [facility] (32239) Triglyceride 148 mg/dL (N) 0 - 150 mg/dL [facility] [Mass/Vol] [facility] (96404) Urea nitrogen 20 mg/dL (N) 7 - 20 mg/dL [facility] [Mass/Vol] [facility] (88103) Urea 13 mg/mg (N) 6 - 22 mg/mg Community [facility] alth nitrogen/Creatin [facility] [Mass ratio] [facility] (71806) WBC (Bld) 5.5 10*3/uL (N) 3.5 - 10.5 Community [facility]al [#/Vol] 10*3/uL [facility] (54714) Vital Signs Vital Sign Value Interpretation Reference Date Time Care Prov ider Facility (Normalized) (Normalized) Range BMI (Body Mass 28.86 kg/m2 (no code) 15 - 25 kg/m2 12-13-2018 JUANITO ERIBERTO Community Index) 14:40-[address] ([address]) BMI (Body Mass 28.51 kg/m2 (no code) 15 - 25 kg/m2 08-09-2018 JUANITO ERIBERTO Community Index) 17:20-[address] ([address]) BMI (Body Mass 28.83 kg/m2 (no code) 15 - 25 kg/m2 07-20-2018 B CROW MEIERAN Community Index) 17:00-[address] [place] [address] (48875) Body 98.6 [degF] (no code) 97.8 - 99.0 07-20-2018 [facility] Temperature [degF] 17:00-[address] [place] [address] (56867) Body weight 86.09 kg (no code) kg 12-13-2018 ARIEL Com munity 14:40-[address] (63535) Height 172.72 cm (no code) cm 12-13-2018 ARIEL Commu nity 14:40-[address] (63934) Height 172.72 cm (no code) cm 08-09-2018 ARIEL Commu nity 17:20-[address] (22990) Height 172.72 cm (no code) cm 07-20-2018 [facility] 17:00-[address] [place] [address] (41088) Weight 85.05 kg (no code) kg 08-09-2018 ARIEL Commun ity 17:20-[address] (56729) Weight 86 kg (no code) kg 07-20-2018 TWAN FAY [facility] 17:00-0400 [address] [facility] (09090) Interventions No Information Plan of Treatment Normalized Care Care Detail Care Activity Date Care Provider F acility [facility] - TWAN FAY [address] [facility] Psychiatry F/U 20 FQ 12-13-2018 [facility] [place] 12-13-2018 [place] ([address]117) Patient Education no information no information [facility] [address] [place] [address] ([address]96) Patient referral no information no information [facility] [address] [place] [address] (76157) Goals Patient Goal Desired Goal no information no information Social History Normalized Code Original Code Date Value Tobacco smoking status Tobacco smoking status 12-26-2019 - Ex- smoker (finding) VTIS VTIS no information no information 12-26-2019 Denies Use no information no information 12-26-2019 No no information no information 12-26-2019 Former Smoker Sex Assigned At Sex Assigned At 1955 - - Male Functional Status The data below is [...] Diagnosis Care Provi tiffany Organization Date Type 01-02-2020 Admission to day no information (no phone) [facility] (no phone) 01-02-2020 01-18-2018 Patient encounter no information no name (no phone) no organization name (no phone) 12-08-2017 Patient encounter no information no name (no phone) no organization name (no phone) 10-04-2017 Patient encounter no information no name (no phone) no organization name (no phone) Patient encounter no information no name (no phone) no organ ization name (no phone) 01-23-2020 Patient encounter no information (no phone) [facility] (no phone) 01-23-2020 01-23-2020 Patient encounter no information SANTI D HERNÁNDEZ DO (no [facility] - procedure phone) [facility] 01-23-2020 (no phone) 01-02-2020 Patient encounter no information (no phone) [facility] (no phone) 01-02-2020 Patient encounter no information SANTI D HERNÁNDEZ DO (no [facility] - procedure phone) [facility] 01-02-2020 (no phone) 12-26-2019 Patient encounter no information (no phone) [facility] procedure [facility] (no phone) 12-26-2019 12-26-2019 Patient encounter no information SANTI D HERNÁNDEZ DO (no [facility] - procedure phone) [facility] 12-26-2019 (no phone) 11-09-2019 Patient encounter no information no name [...] (no phone) 11-15-2014 Patient encounter no information DAKSHA CUELLO AN [facility] - procedure DO (no phone) [facility] 11-15-2014 (no phone) 01-24-2020 no information Encounter for other no name (no phon e) no organization name preprocedural (no phone) examination 12-27-2019 no information Encounter for other no name (no phon e) no organization name preprocedural (no phone) examination 12-25-2019 no information Pre-operative no name (no phone) no organization name examination, (no phone) unspecified no information Encounter for dental no name (no phone) no or ganization name examination and (no phone) cleaning without abnormal findings Medical Equipment The data below is from unstructured sourcesNo Medical Equipment Information availableNo Medical Equipment Information availableNo Medical Equipment Information availableNo Medical Equipment Information a vailableNo Medical Equipment Information available Payers Normalized Payer Value Unknown no information ([id number]) Medicare no information ([id number]) Evaluation note Note Type Note Facility Evaluation No Assessments Information Available A scension note [facility] ([id number]) History general Narrative - Reported Note Type Note Facility History general Narrative - Reported Type Medical hyperlipidemia History Medical hypertension History Medical mood disorder History Medical mild mental retardation History Medical insomnia History Medical anxiety History Medical Asperger's History Surgical laser eye surgery History [facility] (21993) Hospital Discharge instructions Note Type Note Facility Hospital Additional Instructions [facility] Discharge Patient Instructions Via instructio Physician Instructions [facility] [place] Plan of Care/Instructions/FU: Hospital Patient will need right colon rescection. Follow up D unbar 2 weeks. (04527) Activity as Tolerated: Yes Discharge Diet: Regular Diet Care Plan Patient Instructions:: Patient will nee d right colon rescection. Follow up Hernández 2 weeks. Summary Purpose eClinicalWorks SubmissioneClinicalWorks SubmissioneClinicalWorks SubmissioneClinicalWorks SubmissioneClinicalWorks SubmissioneClinicalWorks SubmissioneClinicalWorks SubmissioneClinicalWorks SubmissioneClinicalWorks SubmissioneClinicalWorks SubmissioneClinicalWorks SubmissioneClinicalWorks SubmissioneClinicalWorks Submission Advance Directives Directive Response Recor ded Date/Time Advance Directives No 12:54pm Health Care Power of Practice Lead No 11/15/14 12:54pm Organ Donor No 11/15/14 12:54pm Resuscitation Status Full Code 11/15/14 12:54pm Advance Directive Response Recorded Date/Time Advance Directives No [facility] 2019 11:18am Health Care Power of Practice Lead No December 26, 2019 11:18am Organ Donor No December 11:18am Resuscitation Status Full Code December 26, 2019 11:18am Advance Directive Response Recorded Date/Time Advance Directives No [facility] 2019 9:42am Health Care Power of Practice Lead No January 02, 2020 9:42am Organ Donor No December 9:42am Resuscitation Status Full Code January 02, 2020 9:42am Advance Directive Response Recorded Date/Time Advance Directives No [facility] 2019 10:46am Health Care Power of Practice Lead No January 23, 2020 10:46am Organ Donor No December 10:46am Resuscitation Status Full Code January 23, 2020 10:46am Discharge Instructions No hospital discharge instructions. Additional Source Comments This clinical document has been generated using PowerMessage software that has been certified by the Office of the National Coordinator for Health Information Technology (ONC 15.99.04.3023.Diam.31.00.0.683730) and the National Committee for Timber [employer]amer (NCQA, as an eMeasure certified technology). FOR [...] BASED ON T HE PRIMARY CLINICAL RECORDS. [email or web address]. provides no warranty or guara ntee of [...] follow up on blood pressure, JNapier, MABH f/u-AB/BONY, A nxiety / intellectual disability / history of anger/tfhzucdpcTXM-WtaUVO-HpdPS f/ u- abualle ma, AIMS , Mood / LPLOT-YlsQFL-Cdy
--- OUTSIDE RECORDS SUMMARY | 2020-02-01 06:47 | XMS REPORT ---
Author Author Anton Franklin [facility] Address [address] [place] [address] Care Team Providers Care Log Driver Name Role Phone MAYNOR Franklin Unavailable PROBLEMS Type Condition ICD9-CM Code QWX56-FH Code Onset Dates Condition S tatus SNOMED Code Problem Essential hypertension I10 Active 58025341 Problem Anxiety F41.9 Active 87890966 Problem Hyperlipidemia, unspecified hyperlipidemia E78.5 Active 84159729 Problem CKD (chronic kidney disease), stage III N18.3 Active 452434358 Problem History of colon polyps Z86.010 Active 544510892 Problem Nicotine abuse Z72.0 Active 99686 008 Problem Developmental disorder F89 Active 8188742 Problem Urinary incontinence, unspecified type R32 Active 355469122 Problem Hyperglycemia R73.9 Active 307995 07 ALLERGIES No Information ENCOUNTERS Encounter Location Date Diagnosis [facility] [address] [address] 14 Jan, 2020 OUTREACH [facility] [address] [facility] [address] [id number] [address] Oct, Oral health maintenance stat us requiring routine preventive dental care K08.9 [facility] [address] [address] 16 Oct, 2019 Essential hypertension I10 ; Hyperlipide iqra, unspecified hyperlipidemia E78.5 ; Prostate cancer screening Z12.5 and Screening PSA (prostate specific antigen) Z12.5 [facility] [address] [address] 09 Oct, 2019 History of test for hearing Z92.89 [facility] [address] [address] 09 Oct, 2019 [facility] [address] [address] 08 Oct, 2019 Essential hypertension I10 ; Hyperlipide iqra, unspecified hyperlipidemia E78.5 ; Prostate cancer screening Z12.5 ; History of tobacco abuse Z87.891 ; History of colon polyps Z86.010 and Encounter for immunization Z23 [facility] [id number] [place] [address] 10 Sep, 2019 Anxiety F41.9 and Developmental disorder F89 [place] [facility] [address] [address] 09 Sep, 2019 Essential hypertension I10 ; History of tobacco abuse Z87.891 ; CKD (chronic kidney disease), stage III N18.3 and Encounter for immunization Z23 [place] [id number] [place] [address] Aug, [facility] [address] [address] [id number] [place] [address] Jul, Dental examination Z01.20 an d Oral health maintenance status requiring routine preventive dental care K08.9 [place] [id number] [place] [address] May, Anxiety F41.9 ; Developmental disorder F 89 and Nicotine abuse Z72.0 [place] [id number] [place] [address] Apr, [place] [address] [address] February, [place] [address] [address] February, Anxiety F41.9 ; Developmental disorder F 89 and Nicotine abuse Z72.0 [place] [address] [address] February, Essential hypertension I10 and Impacted cerumen, bilateral H61.23 [facility] [address] [facility] [id number] [place] [id number] Dec, Oral health maintenance status requiring routine preventive dental care K08.9 [place] [id number] [place] [address] Dec, Developmental disorder F89 and Anxiety F 41.9 [place] [address] [address] Nov, [place] [address] [address] Nov, Essential hypertension I10 [place] [address] [address] Nov, Essential hypertension I10 [place] [address] [address] Nov, Developmental disorder F89 and Anxiety F 41.9 [place] [address] [address] Nov, [place] [address] [address] Nov, Essential hypertension I10 [place] [address] [address] Oct, Elevated blood sugar R73.09 [place] [address] [address] Oct, Elevated blood sugar R73.09 [place] [address] [address] 15 Oct, 2018 Encounter for Medicare annual wellness e xam Z00.00 ; Screening PSA (prostate specific antigen) Z12.5 ; Essential hypertension I10 ; Hyperlipidemia, unspecified hyperlipidemia E78.5 ; Nicotine abuse Z72.0 ; Anxiety F41.9 ; Bilateral impacted cerumen H61.23 and Developmental disorder F89 [place] [address] [address] Oct, Encounter for Medicare annual wellness e xam Z00.00 ; Essential hypertension I10 ; Hyperlipidemia, unspecified hyperlipidemia E78.5 ; Nicotine abuse Z72.0 ; Anxiety F41.9 ; Developmental disorder F89 and Screening PSA (prostate specific antigen) Z12.5 [facility] [address] [id number] 19 Sep, 2018 Dental examination Z01.20 [place] [address] [id number] 16 Jul, 2018 Developmental disorder F89 and Anxiety F 41.9 [place] [address] [id number] Jun, Essential hypertension I10 ; Nicotine ab use Z72.0 and Encounter for immunization Z23 [facility] [address] [id number] Apr, Dental examination Z01.20 [facility] [address] [id number] Jan, Dental examination Z01.20 [place] [address] [id number] Dec, Developmental disorder F89 and Anxiety F 41.[address] [address] 14 Nov, 2017 Essential hypertension I10 ; Hyperlipide iqra, unspecified hyperlipidemia E78.5 ; Nicotine abuse Z72.0 and Bilateral impacted cerumen H61.[address] [address] Oct, [facility] [address] [id number] Sep, Encounter for dental exam and cleaning w /o abnormal findings Z01.20 [place] [address] [address] 11 Sep, 2017 Medicare annual wellness visit, initial Z00.00 and Encounter for immunization Z23 [address] [address] 28 Aug, 2017 Encounter for immunization Z23 ; Develop mental disorder F89 and Anxiety F41.9 [facility] [address] [id number] 13 Jun, 2017 Encounter for dental examination and donte aning without abnormal findings Z01.20 [facility] [address] [address] Apr, Anxiety F41.9 and Developmental disorder F89 [place] [address] [address] Apr, Essential hypertension I10 and Nicotine abuse Z72.0 [facility] [address] [facility] [id number] [place] [id number] Mar, Dental examination Z01.20 [facility] [address] [id number] Mar, Encounter for dental examination and donte aning without abnormal findings Z01.20 [place] [address] [address] Jan, [address] [address] Dec, Developmental disorder F89 and Anxiety F 41.9 [facility] [address] [id number] Dec, Encounter for dental examination and donte aning without abnormal findings Z01.[address] [address] 15 Sep, 2016 Encounter for immunization Z23 [address] [address] Sep, Prostate cancer screening Z12.5 and Hype rlipidemia, unspecified hyperlipidemia E78.[address] [address] Sep, Annual physical exam Z00.00 ; Encounter for immunization Z23 ; Essential hypertension I10 ; Hyperlipidemia, unspecified hyperlipidemia E78.5 ; Anxiety F41.9 ; Prostate cancer screening Z12.5 and Nicotine abuse Z72.[address] [address] Aug, [address] [address] Jul, Urinary incontinence, unspecified type R 32 [facility] [address] [id number] Jul, Dental examination Z01.20 [facility] [address] [address] Jul, Urinary incontinence, unspecified type R 32 [facility] [address] [address] Jul, Anxiety F41.9 and Developmental disorder F89 [facility] [address] [id number] May, Dental examination Z01.[address] [id number] Apr, Encounter for dental examination Z01.20 [facility] [address] [id number] Apr, Encounter for dental examination and donte aning without abnormal findings Z01.20 [facility] [address] [address] Mar, Developmental disorder F89 and Anxiety F 41.9 [facility] [address] [id number] February, Dental examination Z01.20 [facility] [address] [place] [address] February, Essential hypertension I10 [facility] [address] [place] [address] February, Arthralgia M25.50 [facility] [address] [id number] Jan, Encounter for dental examination and donte aning without abnormal findings Z01.20 [facility] [address] [address] Dec, [facility] [address] [address] Nov, Anxiety F41.9 and Developmental disorder F89 [facility] [address] [address] 17 Nov, 2015 [facility] [address] [address] Nov, [facility] [address] [address] Oct, Hyperlipidemia, unspecified hyperlipidem ia E78.5 [place] [address] [address] Oct, Essential hypertension I10 ; Hyperlipide iqra, unspecified hyperlipidemia E78.5 and Prostate cancer screening Z12.5 [place] [address] [address] Oct, Essential hypertension I10 ; Hyperlipide iqra, unspecified hyperlipidemia E78.5 ; Nicotine abuse Z72.0 ; Anxiety F41.9 ; Developmental disorder F89 and Prostate cancer screening Z12.5 [place] [address] [address] Aug, Anxiety F41.9 and Developmental disorder F89 [place] [address] [address] Aug, Essential hypertension I10 and Encounter for immunization Z23 [place] [address] [address] Aug, Prostate cancer screening Z12.5 [place] [address] [address] Jun, Hypertension 401.9 [place] [address] [address] Jun, [place] [address] [address] May, Impulse control disorder, unspecified 31 2.30 ; Generalized anxiety disorder 300.02 ; Other specified pervasive developmental disorders, 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 and 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 [place] [address] [address] Mar, Hypertension 401.9 [facility] [address] [facility] [place] [address] Mar, Dental examination V72.2 [facility] [id number] [place] [address] February, Hypertension 401.9 and Hyperlipidemia 27 2.4 [facility] [id number] [place] [address] February, [facility] [id number] [place] [address] February, Generalized anxiety disorder 300.02 ; Im pulse control disorder 312.30 ; 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 and Benign essential HTN 401.1 [facility] [id number] [place] [address] Jan, [facility] [address] [address] Jan, [facility] [id number] [place] [address] Dec, [facility] [id number] [place] [address] Dec, [facility] [id number] [place] [address] Dec, [facility] [id number] [place] [address] Dec, [facility] [id number] [place] [address] Dec, [facility] [id number] [place] [address] Dec, [facility] [address] [address] Dec, [facility] [id number] [place] [address] Dec, [facility] [address] [address] Nov, [facility] [address] [id number] [place] [address] Nov, 2014 [facility] [address] [id number] [place] [address] Nov, 2014 [facility] [address] [id number] [place] [address] Nov, 2014 [facility] [address] [id number] [place] [address] Nov, 2014 [facility] [address] [id number] [place] [address] Nov, 2014 [facility] [address] [id number] [place] [address] Nov, 2014 [facility] [address] [id number] [place] [address] Nov, 2014 [facility] [address] [id number] [place] [address] Oct, [facility] [address] [id number] [place] [address] Oct, [facility] [address] [id number] [place] [address] Oct, [facility] [address] [id number] [place] [address] Oct, [facility] [address] [id number] [place] [address] Oct, [facility] [address] [id number] [place] [address] Oct, [facility] [address] [id number] [place] [address] Sep, [facility] [address] [id number] [place] [address] Sep, [facility] [address] [id number] [place] [address] Sep, [facility] [address] [id number] [place] [address] Sep, [facility] [address] [facility] [id number] [facility] [place] [address] Sep, [facility] [address] [id number] [place] [address] Sep, [facility] [address] [id number] [place] [address] Aug, [facility] [address] [id number] [place] [address] Aug, [facility] [address] [id number] [place] [address] Aug, [facility] [address] [id number] [place] [address] Aug, [facility] [address] [id number] [place] [address] Jul, [facility] [address] [id number] [place] [address] Jul, [facility] [address] [id number] [place] [address] May, [facility] [address] [id number] [place] [address] May, [facility] [address] [id number] [place] [address] Apr, [facility] [address] [id number] [place] [address] Apr, [facility] [address] [id number] [place] [address] Mar, [facility] [address] [id number] [place] [address] Mar, [facility] [address] [id number] [place] [address] Mar, [facility] [address] [id number] [place] [address] Mar, [facility] [address] [id number] [place] [address] February, [facility] [address] [id number] [place] [address] February, [facility] [address] [id number] [place] [address] Jan, [facility] [address] [id number] [place] [address] Jan, [facility] [address] [id number] [place] [address] Oct, [facility] [address] [id number] [place] [address] Oct, [facility] [address] [id number] [place] [address] Oct, [facility] [address] [id number] [place] [address] Oct, [facility] [address] [id number] [place] [address] Oct, [facility] [address] [id number] [place] [address] Oct, [facility] [address] [id number] [place] [address] Oct, [facility] [address] [id number] [place] [address] Oct, [facility] [address] [id number] [place] [address] Oct, [facility] [address] [id number] [place] [address] Dec, [facility] [address] [id number] [place] [address] Sep, [facility] [address] [id number] [place] [address] Sep, [facility] [address] [id number] [place] [address] May, [facility] [address] [id number] [place] [address] Apr, [facility] [id number] [place] [address] Apr, [facility] [address] [id number] [place] [address] Apr, [facility] [address] [id number] [place] [id number] February, [facility] [id number] [place] [address] Jan, [facility] [id number] [place] [address] Dec, [facility] [id number] [place] [address] Sep, [facility] [id number] [place] [address] Sep, [facility] [id number] [place] [address] Aug, [facility] [id number] [place] [address] Aug, [facility] [id number] [place] [address] Jul, [facility] [id number] [place] [address] Mar, [facility] [id number] [place] [address] Mar, [facility] [id number] [place] [address] Mar, IMMUNIZATIONS No Known Immunizations SOCIAL HISTORY [...]
--- OUTSIDE RECORDS SUMMARY | 2020-02-01 06:47 | XMS REPORT ---
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 Name Role Phone TWAN FAY Unavailable PROBLEMS Type Condition ICD9-CM Code WYV07-ES Code Onset Dates Condition S tatus SNOMED Code Problem Essential hypertension I10 Active 73420725 Problem Anxiety F41.9 Active 79221889 Problem Hyperlipidemia, unspecified hyperlipidemia E78.5 Active 71671744 Problem CKD (chronic kidney disease), stage III N18.3 Active 653623549 Problem History of colon polyps Z86.010 Active 720218402 Problem Nicotine abuse Z72.0 Active 55261 008 Problem Developmental disorder F89 Active 8646352 Problem Urinary incontinence, unspecified type R32 Active 778178539 Problem Hyperglycemia R73.9 Active 791180 07 ALLERGIES No Information ENCOUNTERS Encounter Location Date Diagnosis [facility] [address] [id number] [address] [place] [id number] 14 Jan, 2020 OUTREACH [facility] [id number] [place] [address] Oct, Oral health maintenance stat us requiring routine preventive dental care K08.9 [facility] [address] [id number] [address] [place] [address] 16 Oct, 2019 Essential hypertension I10 ; Hyperlipidemia, unspecified hyperlipidemia E78.5 ; Prostate cancer screening Z12.5 and Screening PSA (prostate specific antigen) Z12.5 [facility] [address] [id number] [address] [place] [address] 09 Oct, 2019 History of test for hearing Z92.89 [facility] [address] [id number] [address] [place] [address] 09 Oct, 2019 [facility] [address] [id number] [address] [place] [address] 08 Oct, 2019 Essential hypertension I10 ; Hyperlipidemia, unspecified hyperlipidemia E78.5 ; Prostate cancer screening Z12.5 ; History of tobacco abuse Z87.891 ; History of colon polyps Z86.010 and Encounter for immunization Z23 [place] [id number] [place] [address] 10 Sep, 2019 Anxiety F41.9 and Developmen oscar disorder F89 [place] [address] [address] 09 Sep, 2019 Essential hypertension I10 ; History of tobacco abuse Z87.891 ; CKD (chronic kidney disease), stage III N18.3 and Encounter for immunization Z23 [place] [id number] [place] [address] 27 Aug, 2019 OUTREACH [facility] [id number] [place] [address] 04 Jul, 2019 Dental examination Z01.20 an d Oral health maintenance status requiring routine preventive dental care K08.9 [place] [address] [address] May, Anxiety F41.9 ; Developmenta l disorder F89 and Nicotine abuse Z72.0 [place] [id number] [place] [address] Apr, [place] [address] [address] February, [place] [id number] [place] [address] February, Anxiety F41.9 ; Developmenta l disorder F89 and Nicotine abuse Z72.0 [place] [id number] [place] [address] February, Essential hypertension I10 a nd Impacted cerumen, bilateral H61.23 [facility] [address] [id number] [address] [place] [address] [id number] Dec, Oral health maintenance stat us requiring routine preventive dental care K08.9 [facility] [address] [id number] [address] [place] [address] Dec, Developmental disorder F89 a nd Anxiety F41.9 [facility] [address] [id number] [address] [place] [address] Nov, [facility] [address] [facility] [id number] [address] [place] [address] Nov, Essential hypertension I10 [facility] [address] [id number] [address] [place] [address] Nov, Essential hypertension I10 [facility] [address] [facility] [id number] [address] [place] [address] Nov, Developmental disorder F89 a nd Anxiety F41.9 [facility] [address] [facility] [id number] [address] [place] [address] Nov, [facility] [address] [id number] [address] [place] [address] Nov, Essential hypertension I10 [facility] [address] [facility] [id number] [address] [place] [address] Oct, Elevated blood sugar R73.09 [facility] [address] [facility] [id number] [address] [place] [address] Oct, Elevated blood sugar R73.09 [facility] [address] [facility] [id number] [address] [place] [address] Oct, Encounter for Medicare annua l wellness exam Z00.00 ; Screening PSA (prostate specific antigen) Z12.5 ; Essential hypertension I10 ; Hyperlipidemia, unspecified hyperlipidemia E78.5 ; Nicotine abuse Z72.0 ; Anxiety F41.9 ; Bilateral impacted cerumen H61.23 and Developmental disorder F89 [facility] [address] [facility] [id number] [address] [place] [address] 14 Oct, 2018 Encounter for Medicare annua l wellness exam Z00.00 ; Essential hypertension I10 ; Hyperlipidemia, unspecified hyperlipidemia E78.5 ; Nicotine abuse Z72.0 ; Anxiety F41.9 ; Developmental disorder F89 and Screening PSA (prostate specific antigen) Z12.5 [facility] [address] [place] [address] [id number] [address] [place] [address] [id number] 19 Sep, 2018 Dental examination Z01.20 [facility] [address] [id number] [address] [place] [address] 16 Jul, 2018 Developmental disorder F89 a nd Anxiety F41.9 [facility] [address] [id number] [address] [place] [address] 26 Jun, 2018 Essential hypertension I10 ; Nicotine abuse Z72.0 and Encounter for immunization Z23 [facility] [address] [facility] [id number] [address] [place] [address] [phone] Apr, Dental examination Z01.20 [facility] [address] [facility] [id number] [place] [address] [id number] Jan, Dental examination Z01.20 [facility] [address] [facility] [id number] [address] [place] [phone] Dec, Developmental disorder F89 a nd Anxiety F41.9 [facility] [address] [facility] [id number] [address] [place] [address] 14 Nov, 2017 Essential hypertension I10 ; Hyperlipidemia, unspecified hyperlipidemia E78.5 ; Nicotine abuse Z72.0 and Bilateral impacted cerumen H61.23 [facility] [address] [facility] [id number] [address] [place] [phone] Oct, [facility] [address] [facility] [id number] [address] [place] [address] [phone] Sep, Encounter for dental exam an d cleaning w/o abnormal findings Z01.20 [facility] [address] [facility] [id number] [address] [place] [address] 11 Sep, 2017 Medicare annual wellness vis it, initial Z00.00 and Encounter for immunization Z23 [facility] [address] [id number] [address] [place] [id number] Aug, Encounter for immunization Z 23 ; Developmental disorder F89 and Anxiety F41.9 [facility] [address] [place] [address] [id number] [address] [place] [address] [phone] Jun, Encounter for dental examina tion and cleaning without abnormal findings Z01.20 [facility] [address] [id number] [address] [place] [address] Apr, Anxiety F41.9 and Developmen oscar disorder F89 [facility] [address] [id number] [address] [place] [address] Apr, Essential hypertension I10 a nd Nicotine abuse Z72.[id number] [place] [address] [id number] Mar, Dental examination Z01.20 [facility] [address] [place] [address] [id number] [address] [place] [address] [phone] Mar, Encounter for dental examina tion and cleaning without abnormal findings Z01.20 [facility] [address] [facility] [id number] [address] [place] [phone] Jan, [facility] [address] [facility] [id number] [address] [place] [id number] Dec, Developmental disorder F89 a nd Anxiety F41.9 [facility] [address] [place] [address] [id number] [address] [place] [address] [phone] Dec, Encounter for dental examina tion and cleaning without abnormal findings Z01.20 [facility] [address] [id number] [address] [place] [address] Sep, Encounter for immunization Z 23 [facility] [address] [facility] [id number] [address] [place] [address] Sep, Prostate cancer screening Z1 2.5 and Hyperlipidemia, unspecified hyperlipidemia E78.5 [facility] [address] [facility] [id number] [address] [place] [address] 06 Dec, 2016 Annual physical exam Z00.00 ; Encounter for immunization Z23 ; Essential hypertension I10 ; Hyperlipidemia, unspecified hyperlipidemia E78.5 ; Anxiety F41.9 ; Prostate cancer screening Z12.5 and Nicotine abuse Z72.0 [facility] [address] [id number] [address] [place] [id number] Aug, [facility] [address] [facility] [id number] [address] [place] [address] Jul, Urinary incontinence, unspec ified type R32 [facility] [address] [place] [address] [id number] [address] [place] [address] [phone] Jul, Dental examination Z01.20 [facility] [address] [facility] [id number] [address] [place] [address] Jul, Urinary incontinence, unspec ified type R32 [facility] [address] [facility] [id number] [address] [place] [address] Jul, Anxiety F41.9 and Developmen oscar disorder F89 [facility] [address] [id number] [address] [place] [address] [phone] May, Dental examination Z01.[address] [id number] [place] [address] [id number] Apr, Encounter for dental examination Z01.20 [facility] [id number] [place] [address] [id number] Apr, Encounter for dental examina tion and cleaning without abnormal findings Z01.20 [facility] [address] [facility] [id number] [address] [place] [address] Mar, Developmental disorder F89 a nd Anxiety F41.9 [facility] [address] [place] [id number] [address] [place] [address] [id number] February, Dental examination Z01.20 [facility] [address] [facility] [id number] [address] [place] [address] February, Essential hypertension I10 [facility] [address] [facility] [id number] [address] [place] [id number] February, Arthralgia M25.50 [facility] [address] [place] [address] [id number] [address] [place] [address] [phone] Jan, Encounter for dental examina tion and cleaning without abnormal findings Z01.20 [facility] [address] [facility] [id number] [address] [place] [phone] Dec, [facility] [address] [facility] [id number] [address] [place] [address] Nov, Anxiety F41.9 and Developmen oscar disorder F89 [facility] [address] [facility] [id number] [address] [place] [id number] 17 Nov, 2015 [facility] [address] [id number] [address] [place] [address] Nov, [facility] [address] [id number] [address] [place] [address] Oct, Hyperlipidemia, unspecified hyperlipidemia E78.5 [facility] [address] [facility] [id number] [address] [place] [address] Oct, Essential hypertension I10 ; Hyperlipidemia, unspecified hyperlipidemia E78.5 and Prostate cancer screening Z12.5 [facility] [address] [id number] [address] [place] [address] Oct, Essential hypertension I10 ; Hyperlipidemia, unspecified hyperlipidemia E78.5 ; Nicotine abuse Z72.0 ; Anxiety F41.9 ; Developmental disorder F89 and Prostate cancer screening Z12.5 [facility] [address] [facility] [id number] [address] [place] [address] Aug, Anxiety F41.9 and Developmen oscar disorder F89 [facility] [address] [facility] [id number] [address] [place] [phone] Aug, Essential hypertension I10 a nd Encounter for immunization Z23 [facility] [address] [facility] [id number] [address] [place] [id number] 04 Aug, 2015 Prostate cancer screening Z1 2.5 [facility] [address] [facility] [id number] [address] [place] [id number] 29 Jun, 2015 Hypertension 401.9 [facility] [address] [facility] [id number] [address] [place] [address] 18 Jun, 2015 [facility] [address] [facility] [id number] [address] [place] [address] May, Impulse control disorder, un specified 312.30 ; Generalized anxiety disorder 300.02 ; Other specified pervasive developmental disorders, 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 [id number] [address] [place] [address] [id number] 15 Mar, 2015 Dental examination V72.2 [facility] [address] [facility] [id number] [address] [place] [id number] February, Hypertension 401.9 and Hyper lipidemia 272.4 [facility] [address] [facility] [id number] [address] [place] [phone] February, [facility] [address] [facility] [id number] [address] [place] [address] February, Generalized anxiety disorder 300.02 ; Impulse control disorder 312.30 ; 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 and Benign essential HTN 401.1 [facility] [address] [facility] [id number] [address] [place] [id number] 14 Jan, 2015 [facility] [address] [facility] [id number] [address] [place] [address] Jan, [facility] [address] [facility] [id number] [address] [place] [phone] Dec, [facility] [address] [facility] [id number] [address] [place] [address] Dec, [facility] [address] [facility] [id number] [address] [place] [id number] Dec, [facility] [address] [id number] [address] [place] [address], [place] [address] 17 Dec, 2014 [facility] [address] [id number] [address] [place] [address], [place] [address] 16 Dec, 2014 [facility] [address] [id number] [address] [place] [address], [place] [address] 16 Dec, 2014 [facility] [address] [id number] [address] [place] [address], [place] [address] Dec, [facility] [address] [id number] [address] [place] [address], [place] [address] Dec, [facility] [address] [id number] [address] [place] [address], [place] [address] 20 Nov, 2014 [facility] [address] [id number] [address] [place] [address], [place] [address] 20 Nov, 2014 [facility] [address] [id number] [address] [place] [address], [place] [address] 19 Nov, 2014 [facility] [address] [id number] [address] [place] [address], [place] [address] Nov, [facility] [address] [id number] [address] [place] [address], [place] [address] 18 Nov, 2014 [facility] [address] [id number] [address] [place] [address], [place] [address] 18 Nov, 2014 [facility] [address] [id number] [address] [place] [address] Nov, [facility] [address] [id number] [address] [place] [address], [place] [address] Nov, [facility] [address] [id number] [address] [place] [id number] Oct, [facility] [address] [id number] [address] [place] [id number] Oct, [facility] [address] [id number] [address] [place] [address], [place] [address] Oct, [facility] [address] [id number] [address] [place] [address], [place] [address] Oct, [facility] [address] [id number] [address] [place] [address], [place] [address] Oct, [facility] [address] [id number] [address] [place] [address], [place] [address] Oct, [facility] [address] [id number] [address] [place] [address], [place] [address] Sep, [facility] [address] [id number] [address] [place] [address], [place] [address] Sep, [facility] [address] [id number] [address] [place] [address], [place] [address] Sep, [facility] [address] [id number] [address] [place] [address], [place] [address] Sep, [facility] [address] [id number] [address] [place] [address], [place] [address] Sep, [facility] [address] [id number] [address] [place] [address], [place] [address] Sep, [facility] [address] [id number] [address] [place] [address], [place] [address] Aug, [facility] [address] [id number] [address] [place] [address], [place] [address] Aug, [facility] [address] [id number] [address] [place] [address], [place] [address] Aug, [facility] [address] [id number] [address] [place] [address], [place] [address] Aug, [facility] [address] [id number] [address] [place] [address], [place] [address] Jul, [facility] [address] [id number] [address] [place] [address], [place] [address] Jul, [facility] [address] [id number] [address] [place] [address], [place] [address] May, [facility] [address] [id number] [address] [place] [address], [place] [address] May, [facility] [address] [id number] [address] [place] [address], [place] [address] Apr, [facility] [address] [id number] [address] [place] [address], [place] [address] Apr, [facility] [address] [id number] [address] [place] [address], [place] [address] Mar, [facility] [address] [id number] [address] [place] [address], [place] [address] Mar, [facility] [address] [id number] [address] [place] [address], [place] [address] Mar, [facility] [address] [id number] [address] [place] [address], [place] [address] Mar, [facility] [address] [id number] [address] [place] [address], [place] [address] February, [facility] [address] [id number] [address] [place] [address], [place] [address] February, [facility] [address] [id number] [address] [place] [address], [place] [address] Jan, [facility] [address] [id number] [address] [place] [address], [place] [address] Jan, [facility] [address] [id number] [address] [place] [address], [place] [address] Oct, [facility] [address] [id number] [address] [place] [address], [place] [address] Oct, [facility] [address] [id number] [address] [place] [address], [place] [address] Oct, [facility] [address] [id number] [address] [place] [address], [place] [address] Oct, [facility] [address] [id number] [address] [place] [address], [place] [address] Oct, [facility] [address] [id number] [address] [place] [address], [place] [address] Oct, [facility] [address] [id number] [address] [place] [address], [place] [address] Oct, [facility] [address] [id number] [address] [place] [address], [place] [address] Oct, [facility] [address] [id number] [address] [place] [address], [place] [address] Oct, [facility] [address] [id number] [address] [place] [address], [place] [address] Dec, [facility] [address] [id number] [address] [place] [address], [place] [address] Sep, [facility] [address] [id number] [address] [place] [address], [place] [address] Sep, [facility] [address] [id number] [address] [place] [address], [place] [address] May, [facility] [address] [id number] [address] [place] [address], [place] [address] Apr, [facility] [address] [id number] [address] [place] [address], [place] [address] Apr, [facility] [address] [id number] [address] [place] [address], [place] [address] Apr, [facility] [address] [id number] [place] [id number] February, [facility] [address] [id number] [address] [place] [address], [place] [address] Jan, [facility] [address] [id number] [address] [place] [address], [place] [address] Dec, [facility] [address] [id number] [address] [place] [id number] Sep, [facility] [address] [id number] [address] [place] [id number] Sep, [facility] [address] [id number] [address] [place] [address] Aug, [facility] [address] [id number] [address] [place] [address] Aug, [facility] [address] [id number] [address] [place] [address] Jul, [facility] [address] [id number] [address] [place] [address] Mar, [facility] [address] [id number] [address] [place] [address] Mar, [facility] [address] [id number] [address] [place] [address] Mar, IMMUNIZATIONS No Known Immunizations SOCIAL HISTORY Never Assessed REASON FOR VISIT PLAN OF CARE VITAL SIGNS Height 67.5 in 2013-11-21 Weight 150.56 lbs 2013-11-21 Temperature 97.9 degrees Fahrenheit 2013-11-21 Heart Rate 72 bpm 2013-11-21 Respiratory Rate 18 2013-11-21 Blood pressure systolic 148 mmHg 2013-11-21 Blood pressure diastolic 82 mmHg 2013-11-21 MEDICATIONS Unknown Medications RESULTS No Results PROCEDURES Procedure Date Ordered Result Body Site COMPLETE CBC W/AUTO DIFF WBC Nov 21, 2013 ASSAY THYROID STIM HORMONE Nov 21, 2013 LIPID PANEL Nov 21, 2013 COMPREHEN METABOLIC PANEL Nov 21, 2013 INSTRUCTIONS MEDICATIONS ADMINISTERED No Known Medications MEDICAL (GENERAL) HISTORY Type Description Date Medical History hyperlipidemia Medical History hypertension Medical History mood disorder Medical History mild mental retardation Medical History insomnia Medical History anxiety Medical History Asperger's Surgical History laser eye surgery
--- OUTSIDE RECORDS SUMMARY | 2020-02-01 06:48 | XMS REPORT ---
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 Name Role Phone TWAN FAY Unavailable PROBLEMS Type Condition ICD9-CM Code NXW66-CM Code Onset Dates Condition S tatus SNOMED Code Problem Essential hypertension I10 Active 60934128 Problem Anxiety F41.9 Active 39987765 Problem Hyperlipidemia, unspecified hyperlipidemia E78.5 Active 55936372 Problem CKD (chronic kidney disease), stage III N18.3 Active 636144712 Problem History of colon polyps Z86.010 Active 585521298 Problem Nicotine abuse Z72.0 Active 14981 008 Problem Developmental disorder F89 Active 5951344 Problem Urinary incontinence, unspecified type R32 Active 519575110 Problem Hyperglycemia R73.9 Active 243567 07 ALLERGIES No Information ENCOUNTERS Encounter Location Date Diagnosis [facility] [address] [address] 14 Jan, [address] [facility] [address] [facility] [id number] [place] [address] Oct, Oral health maintenance stat us requiring routine preventive dental care K08.9 [facility] [address] [address] 16 Oct, 2019 Essential hypertension I10 ; Hyperlipide iqra, unspecified hyperlipidemia E78.5 ; Prostate cancer screening Z12.5 and Screening PSA (prostate specific antigen) Z12.5 [facility] [address] [place] [address] 09 Oct, 2019 History of test for hearing Z92.89 [facility] [address] [address] 09 Oct, 2019 [facility] [address] [address] 08 Oct, 2019 Essential hypertension I10 ; Hyperlipide iqra, unspecified hyperlipidemia E78.5 ; Prostate cancer screening Z12.5 ; History of tobacco abuse Z87.891 ; History of colon polyps Z86.010 and Encounter for immunization Z23 [facility] [id number] [place] [address] 10 Sep, 2019 Anxiety F41.9 and Developmental disorder F89 [place] [address] [address] 09 Sep, 2019 Essential hypertension I10 ; History of tobacco abuse Z87.891 ; CKD (chronic kidney disease), stage III N18.3 and Encounter for immunization Z23 [place] [id number] [place] [address] Aug, [facility] [address] [address] [id number] [place] [address] Jul, Dental examination Z01.20 an d Oral health maintenance status requiring routine preventive dental care K08.9 [place] [id number] [place] [address] May, Anxiety F41.9 ; Developmental disorder F 89 and Nicotine abuse Z72.0 [place] [id number] [place] [address] Apr, [place] [address] [address] February, [place] [address] [address] February, Anxiety F41.9 ; Developmental disorder F 89 and Nicotine abuse Z72.0 [place] [address] [address] February, Essential hypertension I10 and Impacted cerumen, bilateral H61.23 [facility] [address] [facility] [id number] [place] [id number] Dec, Oral health maintenance status requiring routine preventive dental care K08.9 [place] [address] [address] [place] [address] Dec, Developmental disorder F89 and Anxiety F 41.9 [facility] [address] [address] Nov, [facility] [address] [address] Nov, Essential hypertension I10 [place] [address] [address] Nov, Essential hypertension I10 [place] [address] [address] Nov, Developmental disorder F89 and Anxiety F 41.9 [place] [address] [address] Nov, [place] [address] [address] Nov, Essential hypertension I10 [place] [address] [address] Oct, Elevated blood sugar R73.09 [place] [address] [address] Oct, Elevated blood sugar R73.09 [place] [address] [address] 15 Oct, 2018 Encounter for Medicare annual wellness e xam Z00.00 ; Screening PSA (prostate specific antigen) Z12.5 ; Essential hypertension I10 ; Hyperlipidemia, unspecified hyperlipidemia E78.5 ; Nicotine abuse Z72.0 ; Anxiety F41.9 ; Bilateral impacted cerumen H61.23 and Developmental disorder F89 [place] [address] [address] 14 Oct, 2018 Encounter for Medicare annual wellness e xam Z00.00 ; Essential hypertension I10 ; Hyperlipidemia, unspecified hyperlipidemia E78.5 ; Nicotine abuse Z72.0 ; Anxiety F41.9 ; Developmental disorder F89 and Screening PSA (prostate specific antigen) Z12.5 [place] [id number] [id number] Sep, Dental examination Z01.20 [place] [address] [id number] 16 Jul, 2018 Developmental disorder F89 and Anxiety F 41.9 [place] [address] [address] Jun, Essential hypertension I10 ; Nicotine ab use Z72.0 and Encounter for immunization Z23 [facility] [address] [id number] Apr, Dental examination Z01.20 [facility] [address] [id number] Jan, Dental examination Z01.20 [place] [address] [address] Dec, Developmental disorder F89 and Anxiety F 41.[address] [address] 14 Nov, 2017 Essential hypertension I10 ; Hyperlipide iqra, unspecified hyperlipidemia E78.5 ; Nicotine abuse Z72.0 and Bilateral impacted cerumen H61.[address] [address] Oct, [facility] [address] [id number] Sep, Encounter for dental exam and cleaning w /o abnormal findings Z01.20 [place] [address] [address] 11 Sep, 2017 Medicare annual wellness visit, initial Z00.00 and Encounter for immunization Z23 [address] [address] 28 Aug, 2017 Encounter for immunization Z23 ; Develop mental disorder F89 and An[address]41[address]9 [facility] [address] [id number] 13 Jun, 2017 Encounter for dental examination and donte aning without abnormal findings Z01.20 [facility] [address] [address] Apr, Anxiety F41.9 and Developmental disorder F89 [address] [address] Apr, Essential hypertension I10 and Nicotine abuse Z72.0 [facility] [address] [facility] [address] [id number] [id number] Mar, Dental examination Z01.20 [facility] [address] [id number] Mar, Encounter for dental examination and donte aning without abnormal findings Z01.20 [place] [address] [address] Jan, [address] [address] Dec, Developmental disorder F89 and Anxiety F 41.9 [facility] [address] [id number] Dec, Encounter for dental examination and donte aning without abnormal findings Z01.[address] [address] Sep, Encounter for immunization Z23 [address] [address] Sep, Prostate cancer screening Z12.5 and Hype rlipidemia, unspecified hyperlipidemia E78.[address] [address] Sep, Annual physical exam Z00.00 ; Encounter for immunization Z23 ; Essential hypertension I10 ; Hyperlipidemia, unspecified hyperlipidemia E78.5 ; Anxiety F41.9 ; Prostate cancer screening Z12.5 and Nicotine abuse Z72.[address] [address] Aug, [address] [address] Jul, Urinary incontinence, unspecified type R 32 [facility] [address] [id number] Jul, Dental examination Z01.20 [facility] [address] [address] Jul, Urinary incontinence, unspecified type R 32 [facility] [address] [address] Jul, Anxiety F41.9 and Developmental disorder F89 [facility] [address] [id number] May, Dental examination Z01.20 [address] [address] Apr, Encounter for dental examination Z01.20 [facility] [address] [id number] Apr, Encounter for dental examination and donte aning without abnormal findings Z01.20 [facility] [address] [address] Mar, Developmental disorder F89 and Anxiety F 41.9 [facility] [address] [id number] February, Dental examination Z01.20 [facility] [address] [address] February, Essential hypertension I10 [facility] [address] [address] February, Arthralgia M25.50 [facility] [address] [id number] Jan, Encounter for dental examination and dotne aning without abnormal findings Z01.20 [facility] [address] [id number] Dec, [facility] [address] [address] Nov, Anxiety F41.9 and Developmental disorder F89 [facility] [address] [address] 17 Nov, 2015 [facility] [address] [address] Nov, [facility] [address] [address] Oct, Hyperlipidemia, unspecified hyperlipidem ia E78.5 [place] [address] [address] Oct, Essential hypertension I10 ; Hyperlipide iqra, unspecified hyperlipidemia E78.5 and Prostate cancer screening Z12.5 [place] [address] [address] Oct, Essential hypertension I10 ; Hyperlipide iqra, unspecified hyperlipidemia E78.5 ; Nicotine abuse Z72.0 ; Anxiety F41.9 ; Developmental disorder F89 and Prostate cancer screening Z12.5 [place] [address] [address] Aug, Anxiety F41.9 and Developmental disorder F89 [place] [address] [address] Aug, Essential hypertension I10 and Encounter for immunization Z23 [place] [address] [address] Aug, Prostate cancer screening Z12.5 [place] [address] [address] Jun, Hypertension 401.9 [place] [address] [address] Jun, [place] [address] [address] May, Impulse control disorder, unspecified 31 2.30 ; Generalized anxiety disorder 300.02 ; Other specified pervasive developmental disorders, 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 and Benign essential HTN 401.1 [facility] [id number] [place] [address] Jan, [facility] [address] [address] Jan, [facility] [id number] [place] [address] Dec, [facility] [id number] [place] [address] 18 Dec, 2014 [facility] [id number] [place] [address] Dec, [facility] [id number] [place] [address] Dec, [facility] [id number] [place] [address] 16 Dec, 2014 [facility] [id number] [place] [address] Dec, [facility] [id number] [place] [address] Dec, [facility] [id number] [place] [address] Dec, [facility] [id number] [place] [address] Nov, [facility] [address] [id number] [place] [address] Nov, 2014 [facility] [address] [id number] [place] [address] Nov, 2014 [facility] [address] [id number] [place] [address] Nov, 2014 [facility] [address] [id number] [place] [address] Nov, 2014 [facility] [address] [id number] [place] [address] Nov, 2014 [facility] [address] [id number] [place] [address] Nov, 2014 [facility] [address] [id number] [place] [address] Nov, [facility] [id number] [place] [address] Oct, [facility] [address] [id number] [place] [address] Oct, [facility] [id number] [place] [address] Oct, [facility] [address] [id number] [place] [address] Oct, [facility] [id number] [place] [address] Oct, [facility] [address] [id number] [place] [address] Oct, [facility] [address] [id number] [place] [address] Sep, [facility] [address] [id number] [place] [address] Sep, [facility] [address] [id number] [place] [address] Sep, [facility] [address] [id number] [place] [address] Sep, [facility] [address] [facility] [id number] [place] [address] Sep, [facility] [address] [facility] [id number] [place] [address] Sep, [facility] [address] [id number] [place] [address] Aug, [facility] [address] [id number] [place] [address] Aug, [facility] [address] [facility] [id number] [place] [address] Aug, [facility] [address] [id number] [place] [address] Aug, [facility] [address] [id number] [place] [address] Jul, [facility] [address] [id number] [place] [address] Jul, [facility] [address] [id number] [place] [address] May, [facility] [address] [id number] [place] [address] May, [facility] [address] [id number] [place] [address] Apr, [facility] [address] [id number] [place] [address] Apr, [facility] [address] [id number] [place] [address] Mar, [facility] [address] [id number] [place] [address] Mar, [facility] [address] [id number] [place] [address] Mar, [facility] [address] [id number] [place] [address] Mar, [facility] [address] [id number] [place] [address] February, [facility] [address] [id number] [place] [address] February, [facility] [address] [id number] [place] [address] Jan, [facility] [address] [id number] [place] [address] Jan, [facility] [address] [id number] [place] [address] Oct, [facility] [address] [id number] [place] [address] Oct, [facility] [address] [id number] [place] [address] Oct, [facility] [address] [id number] [place] [address] Oct, [facility] [address] [id number] [place] [address] Oct, [facility] [address] [id number] [place] [address] Oct, [facility] [address] [id number] [place] [address] Oct, [facility] [address] [id number] [place] [address] Oct, [facility] [address] [id number] [place] [address] Oct, [facility] [address] [id number] [place] [address] Dec, [facility] [address] [id number] [place] [address] Sep, [facility] [address] [id number] [place] [address] Sep, [facility] [address] [id number] [place] [address] May, [facility] [address] [id number] [place] [address] Apr, [facility] [id number] [place] [address] Apr, [facility] [address] [id number] [place] [address] Apr, [facility] [address] [id number] [place] [address] February, [facility] [id number] [place] [address] Jan, [facility] [id number] [place] [address] Dec, [facility] [id number] [place] [address] Sep, [facility] [id number] [place] [address] Sep, [facility] [id number] [place] [address] Aug, [facility] [id number] [place] [address] Aug, [facility] [id number] [place] [address] Jul, [facility] [id number] [place] [address] Mar, [facility] [id number] [place] [address] Mar, [facility] [id number] [place] [address] Mar, IMMUNIZATIONS No Known Immunizations SOCIAL HISTORY [...]
--- OUTSIDE RECORDS SUMMARY | 2020-02-01 06:48 | XMS REPORT ---
Author Author Anton Gentile Organization [facility] Address [address] [place] [address] Care Team Providers Care Information Delivery Analyst Name Role Phone AUTUMN Gentile Unavailable PROBLEMS Type Condition ICD9-CM Code XSJ75-OD Code Onset Dates Condition S tatus SNOMED Code Problem Essential hypertension I10 Active 50287670 Problem Anxiety F41.9 Active 96909277 Problem Hyperlipidemia, unspecified hyperlipidemia E78.5 Active 33719131 Problem CKD (chronic kidney disease), stage III N18.3 Active 335152864 Problem History of colon polyps Z86.010 Active 995751848 Problem Nicotine abuse Z72.0 Active 98172 008 Problem Developmental disorder F89 Active 8113174 Problem Urinary incontinence, unspecified type R32 Active 012001638 Problem Hyperglycemia R73.9 Active 228782 07 ALLERGIES No Information ENCOUNTERS Encounter Location Date Diagnosis [facility] [address] [address] 14 Jan, 2020 OUTREACH [facility] [address] [facility] [address] [id number] [place] [address] Oct, Oral health maintenance stat us requiring routine preventive dental care K08.9 [facility] [address] [address] 16 Oct, 2019 Essential hypertension I10 ; Hyperlipide iqra, unspecified hyperlipidemia E78.5 ; Prostate cancer screening Z12.5 and Screening PSA (prostate specific antigen) Z12.5 [facility] [address] [address] 09 Oct, 2019 History of test for hearing Z92.89 [facility] [address] [address] 09 Oct, 2019 [facility] [address] [address] 08 Oct, 2019 Essential hypertension I10 ; Hyperlipide iqra, unspecified hyperlipidemia E78.5 ; Prostate cancer screening Z12.5 ; History of tobacco abuse Z87.891 ; History of colon polyps Z86.010 and Encounter for immunization Z23 [facility] [id number] [place] [address] 10 Sep, 2019 Anxiety F41.9 and Developmental disorder F89 [place] [address] [address] 09 Sep, 2019 Essential hypertension I10 ; History of tobacco abuse Z87.891 ; CKD (chronic kidney disease), stage III N18.3 and Encounter for immunization Z23 [place] [id number] [place] [address] Aug, OUTREACH [facility] [address] [address] [id number] [place] [address] Jul, Dental examination Z01.20 an d Oral health maintenance status requiring routine preventive dental care K08.9 [place] [id number] [place] [address] May, Anxiety F41.9 ; Developmental disorder F 89 and Nicotine abuse Z72.0 [place] [id number] [place] [address] Apr, [place] [address] [address] February, [place] [address] [address] February, Anxiety F41.9 ; Developmental disorder F 89 and Nicotine abuse Z72.0 [place] [address] [address] February, Essential hypertension I10 and Impacted cerumen, bilateral H61.23 [facility] [address] [facility] [id number] [place] [id number] Dec, Oral health maintenance status requiring routine preventive dental care K08.9 [place] [address] [address] [place] [address] Dec, Developmental disorder F89 and Anxiety F 41.9 [facility] [address] [address] Nov, [facility] [address] [address] Nov, Essential hypertension I10 [place] [address] [address] Nov, Essential hypertension I10 [place] [address] [address] Nov, Developmental disorder F89 and Anxiety F 41.9 [place] [address] [address] Nov, [place] [address] [address] Nov, Essential hypertension I10 [place] [address] [address] Oct, Elevated blood sugar R73.09 [place] [address] [address] Oct, Elevated blood sugar R73.09 [place] [address] [address] 15 Oct, 2018 Encounter for Medicare annual wellness e xam Z00.00 ; Screening PSA (prostate specific antigen) Z12.5 ; Essential hypertension I10 ; Hyperlipidemia, unspecified hyperlipidemia E78.5 ; Nicotine abuse Z72.0 ; Anxiety F41.9 ; Bilateral impacted cerumen H61.23 and Developmental disorder F89 [place] [address] [address] 14 Oct, 2018 Encounter for Medicare annual wellness e xam Z00.00 ; Essential hypertension I10 ; Hyperlipidemia, unspecified hyperlipidemia E78.5 ; Nicotine abuse Z72.0 ; Anxiety F41.9 ; Developmental disorder F89 and Screening PSA (prostate specific antigen) Z12.5 [place] [address] [id number] Sep, Dental examination Z01.20 [place] [address] [id number] 16 Jul, 2018 Developmental disorder F89 and Anxiety F 41.9 [place] [address] [address] Jun, Essential hypertension I10 ; Nicotine ab use Z72.0 and Encounter for immunization Z23 [facility] [address] [id number] Apr, Dental examination Z01.20 [facility] [address] [id number] Jan, Dental examination Z01.20 [place] [address] [address] Dec, Developmental disorder F89 and Anxiety F 41.[address] [address] 14 Nov, 2017 Essential hypertension I10 ; Hyperlipide iqra, unspecified hyperlipidemia E78.5 ; Nicotine abuse Z72.0 and Bilateral impacted cerumen H61.[address] [address] Oct, [facility] [address] [id number] Sep, Encounter for dental exam and cleaning w /o abnormal findings Z01.20 [place] [address] [address] 11 Sep, 2017 Medicare annual wellness visit, initial Z00.00 and Encounter for immunization Z23 [address] [address] 28 Aug, 2017 Encounter for immunization Z23 ; Develop mental disorder F89 and Anxiety F41.9 [facility] [address] [id number] 13 Jun, 2017 Encounter for dental examination and donte aning without abnormal findings Z01.20 [facility] [address] [address] Apr, Anxiety F41.9 and Developmental disorder F89 [address] [address] Apr, Essential hypertension I10 and Nicotine abuse Z72.0 [facility] [address] [id number] [id number] Mar, Dental examination Z01.20 [facility] [address] [id number] Mar, Encounter for dental examination and donte aning without abnormal findings Z01.20 [place] [address] [address] Jan, [address] [address] Dec, Developmental disorder F89 and Anxiety F 41.9 [facility] [address] [id number] Dec, Encounter for dental examination and donte aning without abnormal findings Z01.[address] [address] Sep, Encounter for immunization Z23 [address] [address] Sep, Prostate cancer screening Z12.5 and Hype rlipidemia, unspecified hyperlipidemia E78.[address] [address] Sep, Annual physical exam Z00.00 ; Encounter for immunization Z23 ; Essential hypertension I10 ; Hyperlipidemia, unspecified hyperlipidemia E78.5 ; Anxiety F41.9 ; Prostate cancer screening Z12.5 and Nicotine abuse Z72.[address] [address] Aug, [address] [address] Jul, Urinary incontinence, unspecified type R 32 [facility] [address] [id number] Jul, Dental examination Z01.20 [facility] [address] [address] Jul, Urinary incontinence, unspecified type R 32 [facility] [address] [address] Jul, Anxiety F41.9 and Developmental disorder F89 [facility] [address] [id number] May, Dental examination Z01.[address] [id number] Apr, Encounter for dental examination Z01.20 [facility] [address] [id number] Apr, Encounter for dental examination and donte aning without abnormal findings Z01.20 [facility] [address] [address] Mar, Developmental disorder F89 and Anxiety F 41.9 [facility] [address] [id number] February, Dental examination Z01.20 [facility] [address] [address] February, Essential hypertension I10 [facility] [address] [address] February, Arthralgia M25.50 [facility] [address] [id number] Jan, Encounter for dental examination and donte aning without abnormal findings Z01.20 [facility] [address] [id number] Dec, [facility] [address] [address] Nov, Anxiety F41.9 and Developmental disorder F89 [facility] [address] [address] 17 Nov, 2015 [facility] [address] [address] Nov, [facility] [address] [address] Oct, Hyperlipidemia, unspecified hyperlipidem ia E78.5 [place] [address] [address] Oct, Essential hypertension I10 ; Hyperlipide iqra, unspecified hyperlipidemia E78.5 and Prostate cancer screening Z12.5 [place] [address] [address] Oct, Essential hypertension I10 ; Hyperlipide iqra, unspecified hyperlipidemia E78.5 ; Nicotine abuse Z72.0 ; Anxiety F41.9 ; Developmental disorder F89 and Prostate cancer screening Z12.5 [place] [address] [address] Aug, Anxiety F41.9 and Developmental disorder F89 [place] [address] [address] Aug, Essential hypertension I10 and Encounter for immunization Z23 [place] [address] [address] Aug, Prostate cancer screening Z12.5 [place] [address] [address] Jun, Hypertension 401.9 [place] [address] [address] Jun, [place] [address] [address] May, Impulse control disorder, unspecified 31 2.30 ; Generalized anxiety disorder 300.02 ; Other specified pervasive developmental disorders, 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 and 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 [place] [address] [address] Mar, Hypertension 401.9 [facility] [address] [facility] [place] [id number] 15 Mar, 2015 Dental examination V72.2 [facility] [id number] [place] [address] February, Hypertension 401.9 and Hyperlipidemia 27 2.4 [facility] [id number] [place] [address] February, [facility] [id number] [place] [address] February, Generalized anxiety disorder 300.02 ; Im pulse control disorder 312.30 ; 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 and Benign essential HTN 401.1 [facility] [id number] [place] [address] Jan, [facility] [address] [address] Jan, [facility] [id number] [place] [address] Dec, [facility] [id number] [place] [address] 18 Dec, 2014 [facility] [id number] [place] [address] Dec, [facility] [id number] [place] [address] Dec, [facility] [id number] [place] [address] 16 Dec, 2014 [facility] [id number] [place] [address] Dec, [facility] [id number] [place] [address] Dec, [facility] [id number] [place] [address] Dec, [facility] [id number] [place] [address] Nov, [facility] [address] [id number] [place] [address] Nov, 2014 [facility] [address] [id number] [place] [address] Nov, 2014 [facility] [address] [id number] [place] [address] Nov, 2014 [facility] [address] [id number] [place] [address] Nov, 2014 [facility] [address] [id number] [place] [address] Nov, 2014 [facility] [address] [id number] [place] [address] Nov, 2014 [facility] [address] [id number] [place] [address] Nov, [facility] [id number] [place] [address] Oct, [facility] [address] [id number] [place] [address] Oct, [facility] [id number] [place] [address] Oct, [facility] [address] [id number] [place] [address] Oct, [facility] [id number] [place] [address] Oct, [facility] [address] [id number] [place] [address] Oct, [facility] [address] [id number] [place] [address] Sep, [facility] [address] [id number] [place] [address] Sep, [facility] [address] [id number] [place] [address] Sep, [facility] [address] [id number] [place] [address] Sep, [facility] [address] [facility] [id number] [facility] [place] [address] Sep, [facility] [address] [facility] [id number] [place] [address] Sep, [facility] [address] [id number] [place] [address] Aug, [facility] [address] [id number] [place] [address] Aug, [facility] [address] [facility] [id number] [place] [address] Aug, [facility] [address] [id number] [place] [address] Aug, [facility] [address] [id number] [place] [address] Jul, [facility] [address] [id number] [place] [address] Jul, [facility] [address] [id number] [place] [address] May, [facility] [address] [id number] [place] [address] May, [facility] [address] [id number] [place] [address] Apr, [facility] [address] [id number] [place] [address] Apr, [facility] [address] [id number] [place] [address] Mar, [facility] [address] [id number] [place] [address] Mar, [facility] [address] [id number] [place] [address] Mar, [facility] [address] [id number] [place] [address] Mar, [facility] [address] [id number] [place] [address] February, [facility] [address] [id number] [place] [address] February, [facility] [address] [id number] [place] [address] Jan, [facility] [address] [id number] [place] [address] Jan, [facility] [address] [id number] [place] [address] Oct, [facility] [address] [id number] [place] [address] Oct, [facility] [address] [id number] [place] [address] Oct, [facility] [address] [id number] [place] [address] Oct, [facility] [address] [id number] [place] [address] Oct, [facility] [address] [id number] [place] [address] Oct, [facility] [address] [id number] [place] [address] Oct, [facility] [address] [id number] [place] [address] Oct, [facility] [address] [id number] [place] [address] Oct, [facility] [address] [id number] [place] [address] Dec, [facility] [address] [id number] [place] [address] Sep, [facility] [address] [id number] [place] [address] Sep, [facility] [address] [id number] [place] [address] May, [facility] [address] [id number] [place] [address] Apr, [facility] [id number] [place] [address] Apr, [facility] [address] [id number] [place] [address] Apr, [facility] [address] [id number] [place] [id number] February, [facility] [id number] [place] [address] Jan, [facility] [id number] [place] [address] Dec, [facility] [id number] [place] [address] Sep, [facility] [id number] [place] [address] Sep, [facility] [id number] [place] [address] Aug, [facility] [id number] [place] [address] Aug, [facility] [id number] [place] [address] Jul, [facility] [id number] [place] [address] Mar, [facility] [id number] [place] [address] Mar, [facility] [id number] [place] [address] Mar, IMMUNIZATIONS No Known Immunizations SOCIAL HISTORY [...]
--- OUTSIDE RECORDS SUMMARY | 2020-02-01 06:52 | XMS REPORT | Continuity of Care Document ---
Author Organization Unknown Address Unknown Phone Unavailable Allergies Active Description Code Type Severity Reaction Onset Reported/Identified Relationship to Patient Clinical Status Yes morphine [id number] Drug Allergy Unknown N/A 01/23/2020 Yes No Known Drug Allergies [id number] Drug Allergy Unknown N/A 01/23/2020 Medications There is no data. Problems Date Dx Coded Attending Type Code Diagnosis Diagnosed By 07/28/2008 MAYNOR BREWSTER DO 296 .90 UNSPECIFIED EPISODIC MOOD DISORDER 07/28/2008 TWAN FAY APRN S 296.90 UNSPECIFIED EPISODIC MOOD DISORDER 07/28/2008 TWAN FAY APRN S 296.90 UNSPECIFIED EPISODIC MOOD DISORDER 07/28/2008 ARIEL CHAVEZ APRN J 296.90 UNSPECIFIED EPISODIC MOOD DISORDER 07/28/2008 CHRISTIANO CHAVEZ APRNA J 296.90 UNSPECIFIED EPISODIC MOOD DISORDER 07/28/2008 CHRISTIANO CHAVEZ APRNA J 296.90 UNSPECIFIED EPISODIC MOOD DISORDER 07/28/2008 CHRISTIANO CHAVEZ APRNA J 296.90 UNSPECIFIED EPISODIC MOOD DISORDER 07/28/2008 CHRISTIANO CHAVEZ APRNA J 296.90 UNSPECIFIED EPISODIC MOOD DISORDER 07/28/2008 CHRISTIANO CHAVEZ APRNA J 296.90 UNSPECIFIED EPISODIC MOOD DISORDER 07/28/2008 TWAN FAY APRN S 296.90 UNSPECIFIED EPISODIC MOOD DISORDER 07/28/2008 CHRISTIANO CHAVEZ APRNA J 296.90 UNSPECIFIED EPISODIC MOOD DISORDER 07/28/2008 CHRISTIANO CHAVEZ APRNA J 296.90 UNSPECIFIED EPISODIC MOOD DISORDER 07/28/2008 VIJI FAY APRNA S 296.90 UNSPECIFIED EPISODIC MOOD DISORDER 07/28/2008 CHRISTIANO CHAVEZ APRNA J 296.90 UNSPECIFIED EPISODIC MOOD DISORDER 04/12/2009 MAYNOR BREWSTER DO 401 .1 BENIGN ESSENTIAL HYPERTENSION 04/12/2009 TWAN FAY APRN 401.1 BENIGN ESSENTIAL HYPERTENSION 04/12/2009 SUMEET LOCKER OPERATOR, TWAN S 401.1 BENIGN ESSENTIAL HYPERTENSION 04/12/2009 SCOTT LOCKER OPERATOR, ARIEL J 401.1 BENIGN ESSENTIAL HYPERTENSION 04/12/2009 SCOTT LOCKER OPERATOR, ARIEL J 401.1 BENIGN ESSENTIAL HYPERTENSION 04/12/2009 SCOTT LOCKER OPERATOR, RAIEL J 401.1 BENIGN ESSENTIAL HYPERTENSION 04/12/2009 SCOTT LOCKER OPERATOR, ARIEL J 401.1 BENIGN ESSENTIAL HYPERTENSION 04/12/2009 SCOTT LOCKER OPERATOR, ARIEL J 401.1 BENIGN ESSENTIAL HYPERTENSION 04/12/2009 SCOTT LOCKER OPERATOR, ARIEL J 401.1 BENIGN ESSENTIAL HYPERTENSION 04/12/2009 LEONELA FAY APRNNDA S 401.1 BENIGN ESSENTIAL HYPERTENSION 04/12/2009 SCOTT LOCKER OPERATOR, ARIEL J 401.1 BENIGN ESSENTIAL HYPERTENSION 04/12/2009 SCOTT GIRONN, ARIEL J 401.1 BENIGN ESSENTIAL HYPERTENSION 04/12/2009 LEONELA FAY APRNNDA S 401.1 BENIGN ESSENTIAL HYPERTENSION 04/12/2009 SCOTT GOMEZ, ARIEL J 401.1 BENIGN ESSENTIAL HYPERTENSION 05/03/2009 MAYNOR BREWSTER DO F 317 MILD MENTAL RETARDATION 05/03/2009 SUMEET GOMEZ TWAN S 317 MILD MENTAL RETARDATION 05/03/2009 LEONELA FAY APRNNDA S 317 MILD MENTAL RETARDATION 05/03/2009 SCOTT LOCKER OPERATOR, ARIEL J 317 MILD MENTAL RETARDATION 05/03/2009 SCOTT LOCKER OPERATOR, ARIEL J 317 MILD MENTAL RETARDATION 05/03/2009 SCOTT LOCKER OPERATOR, ARIEL J 317 MILD MENTAL RETARDATION 05/03/2009 SCOTT LOCKER OPERATOR, ARIEL J 317 MILD MENTAL RETARDATION 05/03/2009 SCOTT LOCKER OPERATOR, ARIEL J 317 MILD MENTAL RETARDATION 05/03/2009 SCOTT LOCKER OPERATOR, ARIEL J 317 MILD MENTAL RETARDATION 05/03/2009 SUMEET GOMEZ TWAN S 317 MILD MENTAL RETARDATION 05/03/2009 SCOTT LOCKER OPERATOR, ARIEL J 317 MILD MENTAL RETARDATION 05/03/2009 SCOTT LOCKER OPERATOR, ARIEL J 317 MILD MENTAL RETARDATION 05/03/2009 SUMEET GOMEZ TWAN S 317 MILD MENTAL RETARDATION 05/03/2009 SCOTT LOCKER OPERATOR, ARIEL J 317 MILD MENTAL RETARDATION 05/22/2009 NEY BAIRES MAYNOR F 307 .47 SI DYSSOMNIA NOS 05/22/2009 SUMEET LOCKER OPERATOR, TWAN S 307.47 SI DYSSOMNIA NOS 05/22/2009 SUMEET LOCKER OPERATOR, TWAN S 307.47 SI DYSSOMNIA NOS 05/22/2009 SCOTT LOCKER OPERATOR, ARIEL J 307.47 SI DYSSOMNIA NOS 05/22/2009 SCOTT LOCKER OPERATOR, ARIEL J 307.47 SI DYSSOMNIA NOS 05/22/2009 SCOTT LOCKER OPERATOR, ARIEL J 307.47 SI DYSSOMNIA NOS 05/22/2009 SCOTT LOCKER OPERATOR, ARIEL J 307.47 SI DYSSOMNIA NOS 05/22/2009 SCOTT LOCKER OPERATOR, ARIEL J 307.47 SI DYSSOMNIA NOS 05/22/2009 SCOTT LOCKER OPERATOR, ARIEL J 307.47 SI DYSSOMNIA NOS 05/22/2009 SUMEET LOCKER OPERATOR, TWAN S 307.47 SI DYSSOMNIA NOS 05/22/2009 SCOTT LOCKER OPERATOR, ARIEL J 307.47 SI DYSSOMNIA NOS 05/22/2009 SCOTT LOCKER OPERATOR, ARIEL J 307.47 SI DYSSOMNIA NOS 05/22/2009 USMEET LOCKER OPERATOR, TWAN S 307.47 SI DYSSOMNIA NOS 05/22/2009 SCOTT LOCKER OPERATOR, ARIEL J 307.47 SI DYSSOMNIA NOS 10/29/2010 MAYNOR BREWSTER DO F 312 .30 IMPULSE CONTROL DISORDER UNSPECIFIED 10/29/2010 MAYNOR BREWSTER DO F V58 .69 LONG-TERM (CURRENT) USE OF OTHER MEDICATIONS 10/29/2010 LEONELA FAY APRNNDA S 312.30 IMPULSE CONTROL DISORDER UNSPECIFIED 10/29/2010 SUMEET GOMEZ TWAN S V58.69 LONG-TERM (CURRENT) USE OF OTHER MEDICATIONS 10/29/2010 SUMEET LOCKER OPERATOR, TWAN S 312.30 IMPULSE CONTROL DISORDER UNSPECIFIED 10/29/2010 SUMEET GOMEZ, TWAN S V58.69 LONG-TERM (CURRENT) USE OF OTHER MEDICATIONS 10/29/2010 SCOTT LOCKER OPERATOR, ARIEL J 312.30 IMPULSE CONTROL DISORDER UNSPECIFIED 10/29/2010 SCOTT LOCKER OPERATOR, ARIEL J V58.69 LONG-TERM (CURRENT) USE OF OTHER MEDICATIONS 10/29/2010 SCOTT LOCKER OPERATOR, ARIEL J 312.30 IMPULSE CONTROL DISORDER UNSPECIFIED 10/29/2010 ARIEL CHAVEZ APRN V58.69 LONG-TERM (CURRENT) USE OF OTHER MEDICATIONS 10/29/2010 CHRISTIANO CHAVEZ APRNA J 312.30 IMPULSE CONTROL DISORDER UNSPECIFIED 10/29/2010 CHRISTIANO CHAVEZ APRNA Evangelina V58.69 LONG-TERM (CURRENT) USE OF OTHER MEDICATIONS 10/29/2010 CHRISTIANO CHAVEZ APRNA Evangelina 312.30 IMPULSE CONTROL DISORDER UNSPECIFIED 10/29/2010 CHRISTIANO CHAVEZ APRNA Evangelina V58.69 LONG-TERM (CURRENT) USE OF OTHER MEDICATIONS 10/29/2010 CHRISTIANO CHAVEZ APRNA Evangelina 312.30 IMPULSE CONTROL DISORDER UNSPECIFIED 10/29/2010 CHRISTIANO CHAVEZ APRNA Evangelina V58.69 LONG-TERM (CURRENT) USE OF OTHER MEDICATIONS 10/29/2010 CHRISTIANO CHAVEZ APRNA Evangelina 312.30 IMPULSE CONTROL DISORDER UNSPECIFIED 10/29/2010 CHRISTIANO CHAVEZ APRNA Evangelina V58.69 LONG-TERM (CURRENT) USE OF OTHER MEDICATIONS 10/29/2010 TWAN FAY APRN S 312.30 IMPULSE CONTROL DISORDER UNSPECIFIED 10/29/2010 TWAN FAY APRN S V58.69 LONG-TERM (CURRENT) USE OF OTHER MEDICATIONS 10/29/2010 CHRISTIANO CHAVEZ APRNA Evangelina 312.30 IMPULSE CONTROL DISORDER UNSPECIFIED 10/29/2010 CHRISTIANO CHAVEZ APRNA Evangelina V58.69 LONG-TERM (CURRENT) USE OF OTHER MEDICATIONS 10/29/2010 CHRISTIANO CHAVEZ APRNA Evangelina 312.30 IMPULSE CONTROL DISORDER UNSPECIFIED 10/29/2010 CHRISTIANO CHAVEZ APRNA Evangelina V58.69 LONG-TERM (CURRENT) USE OF OTHER MEDICATIONS 10/29/2010 TWAN FAY APRN S 312.30 IMPULSE CONTROL DISORDER UNSPECIFIED 10/29/2010 TWAN FAY APRN S V58.69 LONG-TERM (CURRENT) USE OF OTHER MEDICATIONS 10/29/2010 CHRISTIANO CHAVEZ APRNA J 312.30 IMPULSE CONTROL DISORDER UNSPECIFIED 10/29/2010 ARIEL CHAVEZ APRN V58.69 LONG-TERM (CURRENT) USE OF OTHER MEDICATIONS 04/08/2011 MAYNOR BREWSTER DO 319 UNSPECIFIED MENTAL RETARDATION 04/08/2011 SUMEET LOCKER OPERATOR, TWAN S 319 UNSPECIFIED MENTAL RETARDATION 04/08/2011 LEONELA FAY APRNNDA S 319 UNSPECIFIED MENTAL RETARDATION 04/08/2011 SCOTT LOCKER OPERATOR, ARIEL J 319 UNSPECIFIED MENTAL RETARDATION 04/08/2011 SCOTT LOCKER OPERATOR, ARIEL J 319 UNSPECIFIED MENTAL RETARDATION 04/08/2011 SCOTT LOCKER OPERATOR, ARIEL J 319 UNSPECIFIED MENTAL RETARDATION 04/08/2011 SCOTT LOCKER OPERATOR, ARIEL J 319 UNSPECIFIED MENTAL RETARDATION 04/08/2011 SCOTT LOCKER OPERATOR, ARIEL J 319 UNSPECIFIED MENTAL RETARDATION 04/08/2011 SCOTT LOCKER OPERATOR, ARIEL J 319 UNSPECIFIED MENTAL RETARDATION 04/08/2011 LEONELA FAY APRNNDA S 319 UNSPECIFIED MENTAL RETARDATION 04/08/2011 SCOTT LOCKER OPERATOR, ARIEL J 319 UNSPECIFIED MENTAL RETARDATION 04/08/2011 SCOTT LOCKER OPERATOR, ARIEL J 319 UNSPECIFIED MENTAL RETARDATION 04/08/2011 LEONELA FAY APRNNDA S 319 UNSPECIFIED MENTAL RETARDATION 04/08/2011 SCOTT LOCKER OPERATOR, ARIEL J 319 UNSPECIFIED MENTAL RETARDATION 04/10/2011 WERDER DO, MAYNOR F 521 .00 UNSPECIFIED DENTAL CARIES 04/10/2011 DEMARIODER DO, MAYNOR F V22 .1 SUPERVISION OF OTHER NORMAL 04/10/2011 LEONELA FAY APRNNDA S 521.00 UNSPECIFIED DENTAL CARIES 04/10/2011 LEONELA FAY APRNNDA S V22.1 SUPERVISION OF OTHER NORMAL 04/10/2011 LEONELA FAY APRNNDA S 521.00 UNSPECIFIED DENTAL CARIES 04/10/2011 LEONELA FAY APRNNDA S V22.1 SUPERVISION OF OTHER NORMAL 04/10/2011 SCOTT GIRONN, ARIEL J 521.00 UNSPECIFIED DENTAL CARIES 04/10/2011 SCOTT LOCKER OPERATOR, ARIEL J V22.1 SUPERVISION OF OTHER NORMAL 04/10/2011 SCOTT LOCKER OPERATOR, ARIEL J 521.00 UNSPECIFIED DENTAL CARIES 04/10/2011 SCOTT LOCKER OPERATOR, ARIEL J V22.1 SUPERVISION OF OTHER NORMAL 04/10/2011 SCOTT LOCKER OPERATOR, ARIEL J 521.00 UNSPECIFIED DENTAL CARIES 04/10/2011 [...] J V22.1 SUPERVISION OF OTHER NORMAL 04/10/2011 VIJI FAY APRNA S 521.00 UNSPECIFIED DENTAL CARIES 04/10/2011 TWAN FAY APRN S V22.1 SUPERVISION OF OTHER NORMAL 04/10/2011 CHRISTIANO CHAVEZ APRNA J 521.00 UNSPECIFIED DENTAL CARIES 04/10/2011 CHRISTIANO CHAVEZ APRNA J V22.1 SUPERVISION OF OTHER NORMAL 04/10/2011 CHRISTIANO CHAVEZ APRNA J 521.00 UNSPECIFIED DENTAL CARIES 04/10/2011 CHRISTIANO CHAVEZ APRNA J V22.1 SUPERVISION OF OTHER NORMAL 04/10/2011 VIJI FAY APRNA S 521.00 UNSPECIFIED DENTAL CARIES 04/10/2011 VIJI FAY APRNA S V22.1 SUPERVISION OF OTHER NORMAL 04/10/2011 CHRISTIANO CHAVEZ APRNA J 521.00 UNSPECIFIED DENTAL CARIES 04/10/2011 CHRISTIANO CHAVEZ APRNA J V22.1 SUPERVISION OF OTHER NORMAL 12/25/2011 MAYNOR BREWSTER DO 299 .80 DV ASPERGERS 12/25/2011 TWAN FAY APRN S 299.80 DV ASPERGERS 12/25/2011 TWAN FAY APRN S 299.80 DV ASPERGERS 12/25/2011 CHRISTIANO CHAVEZ APRNA J 299.80 DV ASPERGERS 12/25/2011 CHRISTIANO CHAVEZ APRNA J 299.80 DV ASPERGERS 12/25/2011 CHRISTIANO CHAVEZ APRNA J 299.80 DV ASPERGERS 12/25/2011 CHRISTIANO CHAVEZ APRNA J 299.80 DV ASPERGERS 12/25/2011 CHRISTIANO CHAVEZ APRNA J 299.80 DV ASPERGERS 12/25/2011 SCOTT GOMEZ, ARIEL J 299.80 DV ASPERGERS 12/25/2011 LEONELA FAY APRNNDA S 299.80 DV ASPERGERS 12/25/2011 SCOTT GIRONN, ARIEL J 299.80 DV ASPERGERS 12/25/2011 SCOTT GIRONN, ARIEL J 299.80 DV ASPERGERS 12/25/2011 SUMEET GOMEZ TWAN S 299.80 DV ASPERGERS 12/25/2011 SCOTT GOMEZ, ARIEL J 299.80 DV ASPERGERS 11/21/2013 VIJI FAY APRNA S V70.0 EXAM - ROUTINE H&P 11/21/2013 VIJI FAY APRNA S V70.0 EXAM - ROUTINE H&P 11/21/2013 MIKE [...] AN GEN ANXIETY 01/25/2014 ARIEL CHAVEZ APRN 300.02 AN GEN ANXIETY 01/25/2014 ARIEL CHAVEZ APRN 300.02 AN GEN ANXIETY 01/25/2014 TWAN FAY APRN 300.02 AN GEN ANXIETY 01/25/2014 ARIEL CHAVEZ APRN 300.02 AN GEN ANXIETY 01/25/2014 ARIEL CHAVEZ APRN J 300.02 AN GEN ANXIETY 01/25/2014 TWAN FAY APRN 300.02 AN GEN ANXIETY 01/25/2014 ARIEL CHAVEZ APRN 300.02 AN GEN ANXIETY 09/25/2014 TWAN FAY APRN V04.81 FLU SHOT 09/25/2014 ARIEL CHAVEZ APRN V04.81 FLU SHOT 09/25/2014 ARIEL CHAVEZ APRN V04.81 FLU SHOT 09/25/2014 TWAN FAY APRN V04.81 FLU SHOT 09/25/2014 ARIEL CHAVEZ APRN V04.81 FLU SHOT 09/27/2014 TWAN FAY APRN V76.51 screening colonoscopy 09/27/2014 ARIEL CHAVEZ APRN V76.51 screening colonoscopy 09/27/2014 ARIEL CHAVEZ APRN V76.51 screening colonoscopy 09/27/2014 TWAN FAY APRN V76.51 screening colonoscopy 09/27/2014 ARIEL CHAVEZ [...] 02/13/2015 ZACH ISLAS DO Ot V72.84 02/13/2015 [facility] DO, CHANDROUTIE Ot V72.84 12/26/2019 [facility] DO, MICHAELROUTIE Ot V72.84 EXAM PRE-OPERATIVE NOS 12/26/2019 [facility] DO, ZACH Ot V72.84 EXAM PRE-OPERATIVE NOS 12/26/2019 [place] DO, SANTI Nuñez Ot Z01.818 ENCOUNTER FOR OTHER PREPROCEDURAL EXAMIN 12/27/2019 [place] DO, SANTI Savannah Ot Z01.818 ENCOUNTER FOR OTHER PREPROCEDURAL EXAMIN 01/02/2020 [facility] DO, ZACH Ot V72.84 EXAM PRE-OPERATIVE NOS 01/02/2020 [facility] [place] DO, SANTI D Ot D12. 0 BENIGN NEOPLASM OF CECUM 01/02/2020 [facility], SANTI D Ot D12. 5 BENIGN NEOPLASM OF SIGMOID COLON 01/02/2020 [facility], SANTI D Ot D12. 8 BENIGN NEOPLASM OF RECTUM 01/02/2020 [facility], SANTI D Ot I10 ESSENTIAL (PRIMARY) HYPERTENSION 01/02/2020 [facility], SANTI D Ot K63. 89 OTHER SPECIFIED DISEASES OF INTESTINE 01/02/2020 [facility], SANTI D Ot Z79.899 OTHER ENTRY LEVEL FINANCIAL ANALYST (CURRENT) DRUG THERAPY 01/02/2020 [facility] SANTI D Ot Z86.010 PERSONAL HISTORY OF COLONIC POLYPS 01/02/2020 [facility], SANTI D Ot Z87.891 PERSONAL HISTORY OF NICOTINE DEPENDENCE 01/05/2020 [facility], [place] D Ot D12. 0 BENIGN NEOPLASM OF CECUM 01/05/2020 [facility], [place] D Ot D12. 5 BENIGN NEOPLASM OF SIGMOID COLON 01/05/2020 [facility], [place] D Ot D12. 8 BENIGN NEOPLASM OF RECTUM 01/05/2020 [facility], SANTI D Ot I10 ESSENTIAL (PRIMARY) HYPERTENSION 01/05/2020 [facility], SANTI D Ot K63. 89 OTHER SPECIFIED DISEASES OF INTESTINE 01/05/2020 [facility], SANTI D Ot Z79.899 OTHER ALF (CURRENT) DRUG THERAPY 01/05/2020 [facility], SANTI D Ot Z86.010 PERSONAL HISTORY OF COLONIC POLYPS 01/05/2020 [facility], SANTI D Ot Z87.891 PERSONAL HISTORY OF NICOTINE DEPENDENCE 01/05/2020 [facility] SANTI BAIRES Ot D12. 0 BENIGN NEOPLASM OF CECUM 01/05/2020 HERNÁNDEZ SANTI BAIRES Ot D12. 5 BENIGN NEOPLASM OF SIGMOID COLON 01/05/2020 [facility] D12. 8 BENIGN NEOPLASM OF RECTUM 01/05/2020 [facility] I10 ESSENTIAL (PRIMARY) HYPERTENSION 01/05/2020 [facility] K63. 89 OTHER SPECIFIED DISEASES OF INTESTINE 01/05/2020 [facility] Z79.899 OTHER ALF (CURRENT) DRUG THERAPY 01/05/2020 [facility] Ot Z86.010 PERSONAL HISTORY OF COLONIC POLYPS 01/05/2020 HERNÁNDEZ DOSANTI Ot Z87.891 PERSONAL HISTORY OF NICOTINE DEPENDENCE 01/18/2020 ZACH ISLAS DO Ot V72.84 EXAM PRE-OPERATIVE NOS 01/23/2020 ZACH ISLAS DO Ot V72.84 EXAM PRE-OPERATIVE NOS 01/23/2020 ROSHANZACH ALBARADO DO Ot V72.84 EXAM PRE-OPERATIVE NOS 01/23/2020 [facility] Z01.818 ENCOUNTER FOR OTHER PREPROCEDURAL EXAMIN Procedures Code Description [place] [address] CBC 11/22/2013 87889 CMP 11/22/2013 60923 LIPI D PANEL 11/22/2013 8828896 GF R CALC (RESULT ONLY) 11/22/2013 99638 TSH 11/22/2013 69959 ROUT INE VENIPUNCTURE 09/26/2014 19678 CBC 09/26/20147589817 GF R CALC (RESULT ONLY) 09/26/2014 19329 CMP 09/26/2014 46670 LIPI D PANEL 09/26/2014 General S Zach Islas 10/09/2014 04818 ROUT INE VENIPUNCTURE 01/31/2015 71868 LIPI D PANEL 01/31/2015 Results Test Result Range [facility] - 11/09/19 08:06 GLUCOSE 142 mg/dL 65-99 UREA NITROGEN (BUN) 20 mg/dL 7-25 CREATININE 1.60 mg/dL 0.70-1.25 eGFR NON-AFR. OMANI 45 mL/min/1.73m2 > OR = 60 eGFR [...] Status Pt. Type Provider Facility Loc./Unit Complaint [id number] 10/03/2019 13:20:00 10/03/2019 23:59: 59 CLS Outpatient TWAN FAY APRN [facility] [place] [id number] 11/09/2019 08:00:00 Document Registration [id number] 01/25/2020 09:50:00 23:59:59 CLS Preadmit SANTI HERNÁNDEZ DO [facility] CECAL MASS [id number] 01/23/2020 10:30:00 020 11:39:00 DIS Outpatient SANTI HERNÁNDEZ DO [facility] PREOP LAP ASSIST RIGHT COLON RESECTION [id number] 01/02/2020 09:23:00 020 11:35:00 DIS Outpatient SANTI HERNÁNDEZ DO [facility] ENDO HX POLYPS [id number] 12/26/2019 05:36:00 020 14:14:00 DIS Outpatient SANTI HERNÁNDEZ DO [facility] PREOP COLONOSCOPY [id number] 11/15/2014 12:08:00 015 15:40:00 DIS Outpatient ZACH ISLAS DO [facility] SDC SCREENING [id number] 11/14/2014 06:00:00 015 23:59:59 CLS Outpatient ZACH ISLAS DO [facility] PREOP SCREENING [id number] 01/09/2015 12:50:00 01/09/2015 23:59: 59 CLS Outpatient SUMEET LOCKER OPERATOR, TWAN S [id number] 01/08/2015 08:55:00 01/08/2015 23:59: 59 CLS Outpatient SCOTT LOCKER OPERATORMIKE TangARIEL J [id number] 11/08/2014 09:55:00 11/08/2014 23:59: 59 CLS Outpatient SCOTT GIRONN, ARIEL J [id number] 09/26/2014 08:34:00 09/26/2014 23:59: 59 CLS Outpatient LEONELA FAY APRNNDA S [id number] 09/13/2014 09:46:00 09/13/2014 23:59: 59 CLS Outpatient SCOTT CHRISTIANO GOMEZA J [id number] 09/13/2014 09:46:00 09/13/2014 23:59: 59 CLS Outpatient SCOTT GIRONCHRISTIANO TangA J [id number] 08/02/2014 09:59:00 08/02/2014 23:59: 59 CLS Outpatient SCOTT GIRONN, ARIEL J [id number] 06/14/2014 11:07:00 06/14/2014 23:59: 59 CLS Outpatient SCOTT GIRONCHRISTIANO TangA J [id number] 05/08/2014 14:41:00 05/08/2014 23:59: 59 CLS Outpatient SCOTT GIRONMIKE TangARIEL J [id number] 01/25/2014 11:14:00 01/25/2014 23:59: 59 CLS Outpatient SCOTT JASON ARIEL J [id number] 01/25/2014 11:14:00 01/25/2014 23:59: 59 CLS Outpatient SCOTT LOCKER OPERATOR, ARIEL J [id number] 11/21/2013 13:18:00 11/21/2013 23:59: 59 CLS Outpatient SUMEET LOCKER OPERATORLEONELATWAN S [id number] 11/21/2013 13:18:00 11/21/2013 23:59: 59 CLS Outpatient SUMEET LOCKER OPERATOR, TWAN S [id number] 04/25/2012 11:04:00 04/25/2012 23:59: 59 CLS Outpatient MAYNOR BREWSTER DO
[2020-02-01] MEDS ORDERED: LACTATED RINGERS 1,000 ML IV PRN ×2 (07:20)
[2020-02-01] MEDS ORDERED: BUP/EPI 0.5% 1:200,000 (SENSORCAINE) 30 ML VIAL ONE (07:24)
[2020-02-01 07:26] LABS: BASOPHILS % (AUTO) 0 % (0-10); EOSINOPHILS # (AUTO) 0.1 10^3/uL (0.0-0.3); EOSINOPHILS % (AUTO) 1 % (0-10); HEMATOCRIT 46 % (40-54); HEMOGLOBIN 15.9 G/DL (13.3-17.7); LYMPHOCYTES # (AUTO) 1.6 X 10^3 (1.0-4.0); LYMPHOCYTES % (AUTO) 23 % (12-44); MEAN CORPUSCULAR HEMOGLOBIN 28 PG (25-34); MEAN CORPUSCULAR HGB CONC 34 G/DL (32-36); MEAN CORPUSCULAR VOLUME 81 FL (80-99); MEAN PLATELET VOLUME 10.1 FL (7.4-10.4); MONOCYTES # (AUTO) 0.7 X 10^3 (0.0-1.0); MONOCYTES % (AUTO) 10 % (0-12); NEUTROPHILS # (AUTO) 4.7 X 10^3 (1.8-7.8); NEUTROPHILS % (AUTO) 66 % (42-75); PLATELET COUNT 152 10^3/uL (130-400); WHITE BLOOD COUNT 7.1 10^3/uL (4.3-11.0)
[2020-02-01] MEDS ORDERED: ROCURONIUM 10 MG/ML 5 ML SYRINGE IV ONE (07:26)
[2020-02-01] MEDS ORDERED: LIDOCAINE PF 2% 5 ML (XYLOCAINE) VIAL ONE (07:26)
[2020-02-01] MEDS ORDERED: ONDANSETRON 4 MG/2 ML (SDV) Z0FRAN ONE (07:26)
[2020-02-01] MEDS ORDERED: SUCCINYLCHOLINE INJ 100 MG/5 ML SYR ONE (07:26)
[2020-02-01] MEDS ORDERED: proPOfol 200 MG/20 ML (DIPRIVAN) VIAL IV ONE (07:26)
[2020-02-01] MEDS ORDERED: SEVOFLURANE (ULTANE) 15 ML INHAL SOLN ONE ×4 (07:26→10:10)
[2020-02-01] MEDS ORDERED: fentaNYL INJECTION 100 MCG/2 ML AMP ONE ×2 (07:27→11:04)
[2020-02-01] MEDS ORDERED: MIDAZOLAM 2 MG/2 ML (VERSED) VIAL ONE (07:27)
[2020-02-01] MEDS ORDERED: metroNIDAZOLE 500MG/100ML IVPB 100 ML IV ONE (07:30)
[2020-02-01] MEDS ORDERED: CATHETER FLUSH 10 ML SYR IV PRN (07:30)
[2020-02-01] MEDS ORDERED: ceFAZolin 2 GM IV Premixed 50 ML IV ONE (07:30)
--- NOTE | 2020-02-01 08:58 | Progress Note-Pre Operative ---
Pre-Operative Progress Note H&P Reviewed The H&P was reviewed, patient examined and no changes noted. Date Seen by Provider: Feb 01, 2020 Time Seen by Provider: 08:57 Date H&P Reviewed: Feb 01, 2020 Time H&P Reviewed: 08:57 Pre-Operative Diagnosis: cecal mass SANTI HERNÁNDEZ DO Feb 01, 2020 08:57
[2020-02-01] MEDS ORDERED: BUPIVACAINE 0.5% 30 ML (SENSORCAINE) VIAL ONE (10:21)
--- NOTE | 2020-02-01 10:31 | Progress Note-Post Operative ---
Post-Operative Progess Note Surgeon (s)/Medical Lab Specialist (s) Surgeon SANTI HERNÁNDEZ DO Medical Lab Specialist: Dr. Hernandez Pre-Operative Diagnosis cecal mass Post-Operative Diagnosis same Procedure & Operative Findings Date of Procedure 02/01/20 Procedure Performed/Findings lap hand assisted right colon resection Anesthesia Type gen Estimated Blood Loss Estimated blood loss (mL): min Specimens/Packing Specimens Removed right colon SANTI HERNÁNDEZ DO Feb 01, 2020 10:31
[2020-02-01] MEDS ORDERED: PROMETHAZINE INJ 25 MG/ML (PHENERGAN) AMP IVP ONE (11:00)
[2020-02-01] MEDS ORDERED: MEPERIDINE (DEMEROL) INJ 50 MG/ML IVP ONE (11:00)
[2020-02-01] MEDS ORDERED: fentaNYL INJECTION 100 MCG/2 ML AMP IVP ONE (11:00)
[2020-02-01] MEDS ORDERED: ONDANSETRON 4 MG/2 ML (SDV) Z0FRAN IVP PRN (11:00)
--- NOTE | 2020-02-01 11:40 | NUR ---
Yuniel Karey admitted to room 417-1, with an admitting diagnosis of Colon Resection, on 02/01/20 from [facility] , accompanied by .YUNIEL VELEZ introduced to surroundings, call light, bed controls, phone, TV, temperature control, lights, meal times, smoking policy, visitor policy, side rail policy, bathrooms and showers. Patient Rights given to patient in the handbook.YUNIEL VELEZ verbalizes understanding that [facility] is not responsible for the loss or damage to any personal effects or valuables that are kept in the patients posession during their hospitalization. YUNIEL VELEZ verbalizes understanding of Interdisciplinary Patient Education. Patient and/or family were informed about the Rapid Response Team and its purpose.
[2020-02-01] MEDS: LACTATED RINGERS 1,000 ML IV SCH ×2 (12:38→21:48)
[2020-02-01] MEDS: fentaNYL INJECTION 100 MCG/2 ML AMP IVP PRN ×4 (13:26→20:13)
--- NOTE | 2020-02-01 15:31 | Physical Therapy Evaluation ---
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, 2020 Therapy Diagnosis Therapy Diagnosis: limited mobility Height/Weight Height (Feet): 5 Height (Inches): 10.00 Weight (Pounds): 150 Precautions Precautions/Isolations: Fall Prevention, Standard Precautions Weight Bear Status Right Lower Extremity: Right Weight Bearing/Tolerated Left Lower Extremity: Left Weight Bearing/Tolerated Referral Physician: Charlene Reason for Referral: Evaluation/Treatment Medical History Additional Medical History Pt denies any prior medical history Current History Admit for cecal mass s/p colon resection Reviewed History: Yes Social History Home: Single Level Current Living Status: Friend Entry Into Home: Stairs With Railing PT Steps Into Home: 4 PT Steps Inside Home: 0 Prior Prior Level of Function SCALE: Activities may be completed with or without assistive devices. 9-Exetsvfarm-xebvvrd completes the activity by him/herself with no assistance from a helper. 5-Set-up or Clean-up Assistance-helper sets up or cleans up; patient completes activity. Petal assists only prior to or following the activity. 4-Supervision or Touching Assistance-helper provides verbal cues and/or touching/steadying and/or contact guard assistance as patient completes activity. Assistance may be provided throughout the activity or intermittently. 3-Partial/Moderate Assistance-helper does LESS THAN HALF the effort. Petal lifts, holds or supports trunk or limbs, but provides less than half the effort. 2-Substantial/Maximal Assistance-helper does MORE THAN HALF the effort. Petal lifts or holds trunk or limbs and provides more than half the effort. 5-Phftikxnj-suvzgl does ALL the effort. Patient does none of the effort to complete the activity. Or, the assistance of 2 or more helpers is required for the patient to complete the activity. If activity was not attempted, code reason: 7-Patient Refused. 9-Not Applicable-not attempted and the patient did not perform the activity before the current illness, exacerbation or injury. 10-Not Attempted due to Environmental Limitations-(lack of equipment, weather restraints, etc.). 88-Not Attempted due to Medical Conditions or Safety Concerns. Bed Mobility: 6 Transfers (B,C,W/C): 6 Gait: 6 Stairs: 6 Indoor Mobility (Ambulation): Independent Stairs: Independent Prior Devices Use: None PT Evaluation-Current Subjective Pt denies any pain or issues on arrival. Pt/Family Goals Return home. Objective Patient Orientation: Person, Place, Time, Situation Attachments: Kwon Catheter, IV ROM/Strength ROM Upper Extremities WFL ROM Lower Extremities WFL Strength Upper Extremities WFL Strength Lower Extremities WFL Integumentary/Posture Bladder Incontinence: Kwon Cath Neuromuscular (Tone, Coordination, Reflexes) Intact Sensory Vision: Functional Hearing: Functional Sensation Right Upper Extremit: Intact Sensation Left Upper Extremity: Intact Sensation Right Lower Extremit: Intact Sensation Left Lower Extremity: Intact Transfers Roll Left to Right (QC): 6 Sit to Lying (QC): 6 Lying to Sitting/Side of Bed(Q: 6 Sit to Stand (QC): 6 Chair/Hsl-co-Krlna Xfer(QC): 6 Toilet Transfer (QC): 88 Car Transfer (QC): 88 Gait Does the Patient Walk?: Yes Mode of Locomotion: Walk Anticipated Mode of Locomotion: Walk Walk 10 feet (QC): 6 Walk 50 ft with 2 Turns(QC): 6 Walk 150 ft (QC): 6 Distance: 250ft Gait Assistive Device: None Wheelchair Training Does the Pt Use a Wheelchair?: No Balance Sitting Static: Normal Sitting Dynamic: Normal Standing Static: Normal Standing Dynamic: Normal Assessment/Needs Pt was able to manage bed mobility, transfers, and ambulation (I). He does not required continued skilled therapy for mobility. Once his IV and kwon are removed, he is safe to ambulate (I). Rehab Potential: Good PT Short Term Goals Short Term Goals Time Frame: Feb 01, 2020 Roll Left & Right: 6 Lying to sitting on side of be: 6 Sit to stand: 6 Chair/kio-na-nwioh transfer: 6 Walk 10 feet: 6 Walk 50 feet with two turns: 6 Walk 150 feet: 6 PT Plan Treatment/Plan Treatment Plan: Discontinue PT, goals met Treatment Duration: Feb 01, 2020 Frequency: 1 time per week Estimated Hrs Per Day: .25 hour per day Patient and/or Family Agrees t: Yes Safety Risks/Education Patient Education: Issued Written HEP Teaching Recipient: Patient Teaching Methods: Demonstration Response to Teaching: Verbalize Understanding Discharge Recommendations Plan Pt is safe to ambulate (I) when the kwon and IV are removed. Until then, he is safe to get up with nursing as needed for chair transfer or toileting. Time/GCodes Time In: 1500 Time Out: 1525 Total Billed Treatment Time: 25 Total Billed Treatment 1, james (25) JOB DAVIDSON PT Feb 01, 2020 15:31
[2020-02-01] MEDS ORDERED: RT-ALBUTEROL SULF 2.5 MG/3 ML PRE-MIX VIAL INH PRN (16:00)
[2020-02-01] MEDS: ceFAZolin INJECTION 1,000 MG in WATER (STERILE) FOR INJECTION 10 ML IV SCH (16:12)
[2020-02-01] MEDS: metroNIDAZOLE 500MG/100ML IVPB 100 ML IV SCH (16:13)
--- NOTE | 2020-02-01 16:13 | OPERATIVE REPORT ---
DATE OF SERVICE: 02/01/2020 PREOPERATIVE DIAGNOSIS: Cecal mass. POSTOPERATIVE DIAGNOSIS: Cecal mass. PROCEDURE: Laparoscopic hand-assisted right colon resection. SURGEON: Santi Chang DO FISH AGENT: Dr. Hernandez, assisted in retraction, dissection and closure. ANESTHESIA: General. ESTIMATED BLOOD LOSS: Minimal. COMPLICATIONS: None. INDICATIONS: The patient is a 64-year-old male found to have a cecal mass. 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 Risks and benefits were discussed and wishes to proceed with procedure. Consent was signed in the chart. DESCRIPTION OF PROCEDURE: The patient was taken to the operating suite, was prepped and draped in sterile fashion. Surgical pause was performed. Midline incision was made around the umbilicus for hand port. A 12 mm trocar was placed in the subxiphoid region and a 5 mm trocar was placed in the suprapubic region. The right colon was grasped and retracted and mobilized along the right line of Toldt, moving this to a more midline position. The hepatic flexure had to be taken down in order to get adequate length for the resection to bring it out through the midline incision of the hand port. Once brought out, Endo-LICO was used to go across the distal ileum and the right colon. Then, the LigaSure was used to divide the mesentery. Once removed, the colon and the distal ileum were brought together in a [id number] fashion, recreating a vekj-zx-cnsy anastomosis. A hole was made in each end of ileum and colon. An Endo-LICO stapler was fired down and a TA stapler was used to perform the qjlf-ec-gdlp anastomosis. A crotch stitch was placed. The hole was patent and bowel had viable appearance. This was then placed back into the abdomen, which was then irrigated with copious amounts of irrigation and suction. The hand port was removed and the fascia was then closed using 1-0 looped PDS. The scope was then placed back into the abdomen and then inspected. No new pathology noted except for right indirect and direct inguinal hernia. The abdomen was then desufflated, the trocars were removed. The skin was then closed using lou. The area was then washed and dried and sterile bandages were applied. The patient tolerated procedure well without any complications and taken to recovery room in stable condition. Job ID: [id number] DocumentID: [id number] Dictated Date: 02/01/2020 12:48:17 Nurses Medical Assistants Phlebotomists Date: 02/01/2020 16:12:54 Dictated By: SANTI CHANG DO
--- NOTE | 2020-02-01 20:40 | Consultation - Hospitalist ---
HPI History of Present Illness: HPI/Chief Complaint CC: s/p cecal mass resection POD # [address] Chang HPI: This is a mentally challenged 64yoWM clinic patient of [facility] who presents to [facility] after an uncomplicated cecal mass resection by Dr Chang. Patient is a poor historian but he reports his abdominal pain is improved and overall he has no complaints. I have reviewed his home meds and reviewed op report. IS is being used and overall RN has no concerns. Source: patient, RN/MD Exam Limitations: no limitations Date Seen 02/01/20 Attending Physician Avery Chang DO [facility] Referring Physician Date of Admission Feb 01, 2020 at 06:42 Home Medications & Allergies Home Medications Reviewed patient Home Medication Reconciliation performed by pharmacy medication reconciliations emergency medical technician and/or nursing. Patients Allergies have been reviewed. 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) Alcohol Use: Denies Use Recreational Drug Use: No Smoking Status: Former Smoker Former Smoker, Quit: May 29, 2019 2nd Hand Smoke Exposure: Yes Physical Abuse Screen: No Sexual Abuse: No Recent Foreign Travel: No Contact w/other who traveled: No Recent Hopitalizations: No Immunizations Up To Date Date of Pneumonia Vaccine: Jan 25, 2019 Date of Influenza Vaccine: Jul 31, 2019 Seasonal Allergies Seasonal Allergies: No Past Medical History Cardiac: High Cholesterol, Hypertension Neurological: Developmental Disorder Sexually Transmitted Disease: No Loss of Vision: Denies Hearing Impairment: Denies Psychosocial: Anxiety History of Blood Disorders: No Adverse Reaction to Blood Burrows: No (N/A) Review of Systems Constitutional: see HPI Gastrointestinal: abdominal pain, loss of appetite, nausea Physical Exam Physical Exam Vital Signs Vital Signs - First Documented 02/01/20 07:10 Temp 35.9 Pulse 78 Resp 16 B/P (MAP) 145/90 Pulse Ox 97 O2 Delivery Room Air Capillary Refill : Height, Weight, BMI Height: 5'10.00" Weight: 150lbs. oz. [id number]; 25.92 BMI Method: General Appearance: No Apparent Distress, WD/WN, Chronically ill Eyes: Bilateral Eye Normal Inspection, Bilateral Eye PERRL HEENT: PERRL/EOMI, Normal ENT Inspection, Pharynx Normal Neck: Full Range of Motion, Normal Inspection, Non Tender, Supple, Carotid Bruit Respiratory: Chest Non Tender, Lungs Clear, Normal Breath Sounds, No Accessory Muscle Use, No Respiratory Distress Cardiovascular: Regular Rate, Rhythm, No Edema, No Gallop, No JVD, No Murmur, Normal Peripheral Pulses Gastrointestinal: No Organomegaly, No Pulsatile Mass, Soft, Abnormal Bowel Sounds, Tenderness Back: Normal Inspection, No CVA Tenderness, No Vertebral Tenderness Extremity: Normal Capillary Refill, Normal Inspection, Normal Range of Motion, Non Tender, No Calf Tenderness, No Pedal Edema Neurologic/Psychiatric: Alert, Oriented x3, No Motor/Sensory Deficits, Normal Mood/Affect Skin: Normal Color, Warm/Dry Lymphatic: No Adenopathy Results Results/Procedures Labs Laboratory Tests 02/01/20 07:05 02/02/20 05:15 Patient resulted labs reviewed. Assessment/Plan Assessment and Plan Assess & Plan/Chief Complaint Assessment: s/p cecal mass resection POD # [address] Chang uncomplicated HTN HLP Mentally challenged? CRI Mental illness Plan: Monitor labs BP monitored Diagnosis/Problems Diagnosis/Problems (1) Cecum mass (2) Mentally challenged (3) Renal insufficiency (4) Hypertension (5) Hyperlipemia (6) History of colon polyps Clinical Quality Measures DVT/VTE Risk/Contraindication: Risk Factor Score Per Nursin RFS Level Per Nursing on Admit: 4+=Very High BAILEY QUINTERO DO Feb 01, 2020 20:40
[2020-02-02] VITALS (8 sets, daily range): BP systolic 107–162; BP diastolic 51–89
[2020-02-02] MEDS: metroNIDAZOLE 500MG/100ML IVPB 100 ML IV SCH (00:18)
[2020-02-02] MEDS: ceFAZolin INJECTION 1,000 MG in WATER (STERILE) FOR INJECTION 10 ML IV SCH (00:18)
[2020-02-02] MEDS: fentaNYL INJECTION 100 MCG/2 ML AMP IVP PRN ×2 (00:22→02:53)
[2020-02-02 05:58] LABS: BASOPHILS % (AUTO) 0 % (0-10); EOSINOPHILS % (AUTO) 0 % (0-10); HEMATOCRIT 41 % (40-54); LYMPHOCYTES # (AUTO) 0.8 X 10^3 (1.0-4.0); LYMPHOCYTES % (AUTO) 9 % (12-44); MEAN CORPUSCULAR HEMOGLOBIN 28 PG (25-34); MEAN CORPUSCULAR HGB CONC 34 G/DL (32-36); MEAN CORPUSCULAR VOLUME 81 FL (80-99); MEAN PLATELET VOLUME 10.5 FL (7.4-10.4); MONOCYTES % (AUTO) 11 % (0-12); NEUTROPHILS % (AUTO) 80 % (42-75); PLATELET COUNT 138 10^3/uL (130-400); RED CELL DISTRIBUTION WIDTH 13.8 % (10.0-14.5); WHITE BLOOD COUNT 8.8 10^3/uL (4.3-11.0)
[2020-02-02 06:31] LABS: ALBUMIN 3.5 GM/DL (3.2-4.5); POTASSIUM 4.4 MMOL/L (3.6-5.0)
[2020-02-02 06:33] LABS: TOTAL PROTEIN 5.8 GM/DL (6.4-8.2)
[2020-02-02 06:35] LABS: BILIRUBIN,TOTAL 0.6 MG/DL (0.1-1.0)
[2020-02-02 06:37] LABS: CREATININE SERUM 1.44 MG/DL (0.60-1.30)
[2020-02-02 06:40] LABS: MAGNESIUM 1.4 MG/DL (1.6-2.4)
[2020-02-02] MEDS: LACTATED RINGERS 1,000 ML IV SCH ×3 (06:46→18:32)
--- NOTE | 2020-02-02 08:09 | Anesthesia-General Post-Op ---
General Patient Condition Mental Status/LOC: Same as Preop Cardiovascular: Satisfactory Nausea/Vomiting: Absent Respiratory: Satisfactory Pain: Controlled Complications: Absent Post Op Complications Complications None Follow Up Care/Instructions Patient Instructions None needed. Anesthesia/Patient Condition Patient Condition Patient is doing well, no complaints, stable vital signs, no apparent adverse anesthesia problems. No complications reported per nursing. CARI SEE CRNA Feb 02, 2020 08:09
--- NOTE | 2020-02-02 11:40 | Progress Note - Surgery ---
Subjective Date Seen by a Provider: Feb 02, 2020 Time Seen by a Provider: 11:37 Subjective/Events-last exam Feeling okay. Pain controlled. Not really having any. No flatus or bm. Denies any complaints. Objective Exam Vital Signs Date Time Temp Pulse Resp B/P (MAP) Pulse Ox O2 Delivery O2 Flow Rate FiO2 02/02/20 08:00 37.5 87 20 153/87 (109) 92 Room Air 02/02/20 08:00 Room Air 02/02/20 04:00 37.4 92 20 154/81 (105) 93 Room Air 02/02/20 00:24 37.6 96 20 154/83 (106) 92 Room Air 02/01/20 20:30 38.0 90 18 141/83 (102) 94 Room Air 02/01/20 20:15 Room Air 02/01/20 16:00 36.4 85 20 131/79 (96) 95 Room Air 02/01/20 13:05 36.2 78 97 02/01/20 13:04 97 Room Air 02/01/20 12:05 95 Room Air 02/01/20 11:40 36.1 14 113/70 (84) 96 Room Air 02/01/20 11:40 35.5 64 18 134/71 (92) 94 Room Air 02/01/20 11:40 Room Air I & O 02/02/20 07:00 Intake Total 2150 ml Output Total 1400 ml Balance 750 ml Capillary Refill : Less Than 3 Seconds General Appearance: No Apparent Distress HEENT: PERRL/EOMI Neck: Full Range of Motion, Normal Inspection Respiratory: Chest Non Tender, No Accessory Muscle Use, No Respiratory Distress Cardiovascular: No Edema Gastrointestinal: non tender, soft, other (incisions c/d/i no erythema) Extremity: Normal Range of Motion, Non Tender, No Calf Tenderness Neurologic/Psychiatric: Alert, Oriented x3 Skin: Normal Color, Warm/Dry Lymphatic: No Adenopathy Results Lab Laboratory Tests 02/02/20 05:15: White Blood Count 8.8, Red Blood Count 5.07, Hemoglobin 14.0, Hematocrit 41, Mean Corpuscular Volume 81, Mean Corpuscular Hemoglobin 28, Mean Corpuscular Hemoglobin Concent 34, Red Cell Distribution Width 13.8, Platelet Count 138, Mean Platelet Volume 10.5H, Neutrophils (%) (Auto) 80H, Lymphocytes (%) (Auto) 9L, Monocytes (%) (Auto) 11, Eosinophils (%) (Auto) 0, Basophils (%) (Auto) 0, Neutrophils # (Auto) 7.0, Lymphocytes # (Auto) 0.8L, Monocytes # (Auto) 1.0, Eosinophils # (Auto) 0.0, Basophils # (Auto) 0.0, Sodium Level 132L, Potassium Level 4.4, Chloride Level 102, Carbon Dioxide Level 22, Anion Gap 8, Blood Urea Nitrogen 14, Creatinine 1.44H, Estimat Glomerular Filtration Rate 49, BUN/Creatinine Ratio 10, Glucose Level 126H, Calcium Level 8.0L, Corrected Calcium 8.4L, Magnesium Level 1.4L, Total Bilirubin 0.6, Aspartate Amino Transf (AST/SGOT) 12, Alanine Aminotransferase (ALT/SGPT) 9, Alkaline Phosphatase 89, Total Protein 5.8L, Albumin 3.5 Microbiology 02/01/20 MRSA Screen - Final, Complete MRSA not isolated Assessment/Plan Assessment/Plan Assessment/Plan s/p right colon resection hypomagnesemia replace Magnesium 1 gram IS Start Lovenox Sips of clears. Johnny lyford Clinical Quality Measures DVT/VTE Risk/Contraindication: Risk Factor Score Per Nursin RFS Level Per Nursing on Admit: 4+=Very High SANTI HERNÁNDEZ DO Feb 02, 2020 11:40
[2020-02-02] MEDS ORDERED: MAGNESIUM 1 GM/100 ML IVPB 100 ML IV ONE (11:45)
--- NOTE | 2020-02-02 12:06 | Physical Therapy Progress Note ---
Therapy Progress Note New orders received this date. Pt had been evaluated on 02/01/2020 and was found to be indep with mobility and not requiring an AD. Dr. Ordoñez notified. No further PT indicated at this time as pt is indep with mobility. KVNG RODRIGUEZ PT Feb 02, 2020 12:05
--- NOTE | 2020-02-02 12:11 | Progress Note - Hospitalist ---
Subjective HPI/CC On Admission Date Seen by Provider: Feb 02, 2020 Time Seen by Provider: 10:45 Subjective/Events-last exam Patient had a good night Minimal pain is reported Reviewed and restarted home meds No falls PT does not need to treat him he is independent and getting OOB well Checked meds and labs IVF still maintained Review of Systems General: Fatigue Gastrointestinal: Abdominal Pain Objective Exam Vital Signs Vital Signs Date Time Temp Pulse Resp B/P (MAP) Pulse Ox O2 Delivery O2 Flow Rate FiO2 02/02/20 12:00 36.0 87 20 143/86 (105) 95 Room Air 02/01/20 11:00 3 Capillary Refill : Less Than 3 Seconds General Appearance: No Apparent Distress, WD/WN, Chronically ill Respiratory: Chest Non Tender, Lungs Clear, Normal Breath Sounds, No Accessory Muscle Use, No Respiratory Distress Cardiovascular: Regular Rate, Rhythm, No Edema, No Gallop, No JVD, No Murmur, Normal Peripheral Pulses Neurologic/Psychiatric: Alert, Oriented x3, No Motor/Sensory Deficits, Normal Mood/Affect Results/Procedures Lab Laboratory Tests 02/02/20 05:15 Patient resulted labs reviewed. Assessment/Plan Assessment and Plan Assess & Plan/Chief Complaint Assessment: s/p cecal mass resection POD # [address] Chang uncomplicated HTN HLP Mentally challenged? CRI Mental illness DVT PPx Plan: Monitor labs BP monitored Lovenox BP meds restarted Clinical Quality Measures DVT/VTE Risk/Contraindication: Risk Factor Score Per Nursin RFS Level Per Nursing on Admit: 4+=Very High BAILEY QUINTERO DO Feb 02, 2020 12:10
[2020-02-02] MEDS: ENOXAPARIN 40 MG/0.4 ML (LOVENOX) SYR SC SCH (12:34)
--- NOTE | 2020-02-02 16:21 | NUR ---
Pastoral care visit.
[2020-02-02] MEDS: hydrOXYzine (VISTARIL/ATARAX) 25 MG capsule/tablet PO SCH ×2 (17:24→20:41)
[2020-02-02] MEDS: CARVEDILOL 12.5 MG (COREG) TABLET PO SCH (20:41)
[2020-02-02] MEDS: HYDROcodone/APAP 5 MG/325 MG (LORTAB) TAB PO PRN (20:41)
[2020-02-03 00:12] VITALS: BP 128/84
[2020-02-03] MEDS: LACTATED RINGERS 1,000 ML IV SCH ×3 (00:15→17:01)
[2020-02-03 04:00] VITALS: BP 146/80
[2020-02-03 05:34] LABS: RED CELL DISTRIBUTION WIDTH 13.7 % (10.0-14.5); WHITE BLOOD COUNT 9.5 10^3/uL (4.3-11.0)
[2020-02-03 05:43] LABS: POTASSIUM 4.4 MMOL/L (3.6-5.0)
[2020-02-03 05:44] LABS: CALCIUM 8.6 MG/DL (8.5-10.1)
[2020-02-03 05:48] LABS: CREATININE SERUM 1.26 MG/DL (0.60-1.30)
[2020-02-03 05:50] LABS: MAGNESIUM 1.9 MG/DL (1.6-2.4)
[2020-02-03 08:00] VITALS: BP 161/88
[2020-02-03] MEDS: CARVEDILOL 12.5 MG (COREG) TABLET PO SCH ×2 (09:47→21:10)
[2020-02-03] MEDS: risperiDONE 0.25 MG (RisperDAL) TAB PO SCH (09:48)
[2020-02-03] MEDS: amLODIPine 5 MG (NORVASC) TAB PO SCH (09:48)
[2020-02-03] MEDS: hydrOXYzine (VISTARIL/ATARAX) 25 MG capsule/tablet PO SCH ×4 (09:48→21:10)
[2020-02-03] MEDS: LATANOPROST 0.005% (XALATAN) OPHTH SOLN 2.5 ML OU SCH (09:49)
[2020-02-03] MEDS: ENOXAPARIN 40 MG/0.4 ML (LOVENOX) SYR SC SCH (11:18)
--- NOTE | 2020-02-03 11:50 | Progress Note - Hospitalist ---
Subjective HPI/CC On Admission Date Seen by Provider: Feb 03, 2020 Time Seen by Provider: 10:15 CC: s/p cecal mass resection POD # [address] Chang HPI: This is a mentally challenged 64yoWM clinic patient of [facility] who presents to [facility] after an uncomplicated cecal mass resection by Dr Chang. Patient is a poor historian but he reports his abdominal pain is improved and overall he has no complaints. I have reviewed his home meds and reviewed op report. IS is being used and overall RN has no concerns. Subjective/Events-last exam Patient vomited a large amount of dark brown liquid this morning. He denies having any nausea or any complaints upon my interview. Denies having flatus or bowel movement. Objective Exam Vital Signs Vital Signs Date Time Temp Pulse Resp B/P (MAP) Pulse Ox O2 Delivery O2 Flow Rate FiO2 02/03/20 10:48 Room Air 02/03/20 08:09 95 0.00 02/03/20 08:00 37.1 68 20 161/88 (112) Capillary Refill : Less Than 3 Seconds General Appearance: No Apparent Distress, WD/WN HEENT: Other (Poor dentition) Neck: Full Range of Motion, Normal Inspection, Non Tender, Supple Respiratory: Chest Non Tender, Lungs Clear, Normal Breath Sounds, No Accessory Muscle Use, No Respiratory Distress Cardiovascular: Regular Rate, Rhythm, No Edema, No Gallop, No JVD, No Murmur Gastrointestinal: Abnormal Bowel Sounds, Distended Rectal: Deferred Extremity: Normal Inspection, Normal Range of Motion, Non Tender Results/Procedures Lab Laboratory Tests 02/03/20 05:21 Patient resulted labs reviewed. Assessment/Plan Assessment and Plan Assess & Plan/Chief Complaint s/p cecal mass resection POD # [address] Chang uncomplicated-possible low-grade ileus with vomiting-consider NG tube HTN HLP Mentally challenged? CRI Mental illness DVT PPx Clinical Quality Measures DVT/VTE Risk/Contraindication: Risk Factor Score Per Nursin RFS Level Per Nursing on Admit: 4+=Very High ARABELLA LAM MD Feb 03, 2020 11:50
[2020-02-03 12:00] VITALS: BP 154/83
--- NOTE | 2020-02-03 13:42 | Progress Note - Surgery ---
Subjective Time Seen by a Provider: 12:19 Subjective/Events-last exam Pt seen and examined, states he feels fine. He did have large episode of emesis this morning. He denies abdominal pain. Review of Systems General: No Chills, No Night Sweats Pulmonary: No Dyspnea, No Cough Cardiovascular: No: Chest Pain, Palpitations Gastrointestinal: Nausea, Vomiting; No: Abdominal Pain Objective Exam Vital Signs Date Time Temp Pulse Resp B/P (MAP) Pulse Ox O2 Delivery O2 Flow Rate FiO2 02/03/20 12:00 37.1 75 18 154/83 (106) 93 Room Air 0.00 0.00 02/03/20 10:48 Room Air 02/03/20 08:09 95 Room Air 0.00 02/03/20 08:00 37.1 68 20 161/88 (112) 95 Room Air 0.00 0.00 02/03/20 04:00 36.6 80 17 146/80 (102) 99 Room Air 02/03/20 00:12 36.8 86 18 128/84 (99) 97 Room Air 02/02/20 20:00 Room Air 02/02/20 19:58 37.5 90 17 107/51 (69) 96 Vapotherm 40.00 65.00 02/02/20 19:52 36.7 91 17 162/89 (113) 92 Room Air 02/02/20 15:53 36.6 84 20 109/70 (83) 86 High Flow N/C 10.00 02/02/20 15:42 37.3 86 20 158/84 (108) 95 Room Air I & O 02/03/20 07:00 Intake Total 3170 ml Output Total 2175 ml Balance 995 ml Capillary Refill : Less Than 3 Seconds General Appearance: No Apparent Distress, WD/WN HEENT: Other (Poor dentition) Respiratory: Chest Non Tender, Lungs Clear, Normal Breath Sounds, No Accessory Muscle Use, No Respiratory Distress Cardiovascular: Regular Rate, Rhythm, No Edema, No Murmur Gastrointestinal: non tender, soft, other (incisions c/d/i no erythema) Extremity: No Calf Tenderness, No Pedal Edema Neurologic/Psychiatric: Alert, Oriented x3 Skin: Normal Color, Warm/Dry Results Lab Laboratory Tests 02/03/20 05:21: White Blood Count 9.5, Red Blood Count 5.10, Hemoglobin 14.0, Hematocrit 41, Mean Corpuscular Volume 81, Mean Corpuscular Hemoglobin 28, Mean Corpuscular Hemoglobin Concent 34, Red Cell Distribution Width 13.7, Platelet Count 149, Mean Platelet Volume 10.0, Sodium Level 134L, Potassium Level 4.4, Chloride Level 102, Carbon Dioxide Level 23, Anion Gap 9, Blood Urea Nitrogen 14, C reatinine 1.26, Estimat Glomerular Filtration Rate 57, BUN/Creatinine Ratio 11, Glucose Level 154H, Calcium Level 8.6, Magnesium Level 1.9 Microbiology 02/01/20 MRSA Screen - Final, Complete MRSA not isolated Assessment/Plan Assessment/Plan Assessment/Plan Hyponatremia S/P right colon resection hypomagnesemia - reosolved Continue clears (but mostly broth and gatorade) but no free water. Encourage IS and ambulation, pain control, anti-emetics as needed, and Lovenox. Recheck labs to monitor Sodium and other electrolytes. Clinical Quality Measures DVT/VTE Risk/Contraindication: Risk Factor Score Per Nursin RFS Level Per Nursing on Admit: 4+=Very High MERRICK TRUJILLO DO Feb 03, 2020 13:42
[2020-02-03 16:21] VITALS: BP 156/79
[2020-02-03] MEDS: HYDROcodone/APAP 5 MG/325 MG (LORTAB) TAB PO PRN ×2 (17:00→21:10)
[2020-02-03 19:41] VITALS: BP 153/82
--- NOTE | 2020-02-03 20:30 | NUR ---
AMBULATED 3 LAPS AROUND THE FLOOR WITHOUT COMPLICATIONS WITH THIS RN AT HIS SIDE. PT BEGINS TO PASS GAS DURING WALK.
[2020-02-04] VITALS (7 sets, daily range): BP systolic 132–166; BP diastolic 76–96
[2020-02-04] MEDS: LACTATED RINGERS 1,000 ML IV SCH ×4 (00:29→23:43)
--- NOTE | 2020-02-04 04:50 | NUR ---
DR. TRUJILLO CAME TO SEE PT. ORDERED PT TO GET LESS WATER AND MORE GATORADE D/T HAVING LOW SODIUM LEVEL.
--- NOTE | 2020-02-04 06:00 | Progress Note - Surgery ---
Subjective Time Seen by a Provider: 05:09 Subjective/Events-last exam Pt seen and examined, states he ate ok yesterday and is passing some gas. He thinks he "has rumblings and will have BM today". Review of Systems General: No Chills, No Night Sweats Pulmonary: No Dyspnea, No Cough Cardiovascular: No: Chest Pain, Palpitations Gastrointestinal: No: Nausea, Vomiting, Abdominal Pain Objective Exam Vital Signs Date Time Temp Pulse Resp B/P (MAP) Pulse Ox O2 Delivery O2 Flow Rate FiO2 02/04/20 04:21 37.3 70 18 148/84 (105) 93 Room Air 02/04/20 00:16 37.0 82 18 157/93 (114) 94 Room Air 02/03/20 20:00 Room Air 02/03/20 19:41 36.9 82 15 153/82 (105) 93 Room Air 02/03/20 19:00 90 Room Air 02/03/20 16:21 37.1 76 20 156/79 (104) 93 Room Air 02/03/20 12:00 37.1 75 18 154/83 (106) 93 Room Air 0.00 0.00 02/03/20 10:48 Room Air 02/03/20 08:09 95 Room Air 0.00 02/03/20 08:00 37.1 68 20 161/88 (112) 95 Room Air 0.00 0.00 I & O 02/04/20 07:00 Intake Total 1150 ml Balance 1150 ml Capillary Refill : Less Than 3 Seconds General Appearance: No Apparent Distress, WD/WN HEENT: Other (Poor dentition) Respiratory: Chest Non Tender, Lungs Clear, Normal Breath Sounds, No Accessory Muscle Use, No Respiratory Distress Cardiovascular: Regular Rate, Rhythm, No Edema, No Murmur Gastrointestinal: non tender, soft, other (incisions c/d/i no erythema) Extremity: No Calf Tenderness, No Pedal Edema Neurologic/Psychiatric: Alert, Oriented x3 Skin: Normal Color, Warm/Dry Results Lab Microbiology 02/01/20 MRSA Screen - Final, Complete MRSA not isolated Assessment/Plan Assessment/Plan Assessment/Plan Hyponatremia - recheck labs today S/P right colon resection hypomagnesemia - resolved Continue broth and gatorade (but no free water); advance to soft diet as tolerated. Encourage IS and ambulation, pain control, anti-emetics as needed, and Lovenox. Recheck labs to monitor Sodium and other electrolytes. Clinical Quality Measures DVT/VTE Risk/Contraindication: Risk Factor Score Per Nursin RFS Level Per Nursing on Admit: 4+=Very High MERRICK TRUJILLO DO Feb 04, 2020 06:00
[2020-02-04] MEDS: CARVEDILOL 12.5 MG (COREG) TABLET PO SCH ×2 (08:38→20:09)
[2020-02-04] MEDS: hydrOXYzine (VISTARIL/ATARAX) 25 MG capsule/tablet PO SCH ×4 (08:38→20:08)
[2020-02-04] MEDS: amLODIPine 5 MG (NORVASC) TAB PO SCH (08:38)
[2020-02-04] MEDS: LATANOPROST 0.005% (XALATAN) OPHTH SOLN 2.5 ML OU SCH (08:42)
[2020-02-04] MEDS: risperiDONE 0.25 MG (RisperDAL) TAB PO SCH (08:42)
[2020-02-04] MEDS: ENOXAPARIN 40 MG/0.4 ML (LOVENOX) SYR SC SCH (12:02)
--- NOTE | 2020-02-04 12:37 | Progress Note - Hospitalist ---
Subjective HPI/CC On Admission Date Seen by Provider: Feb 04, 2020 Time Seen by Provider: 12:15 CC: s/p cecal mass resection POD # [address] Chang HPI: This is a mentally challenged 64yoWM clinic patient of [facility] who presents to [facility] after an uncomplicated cecal mass resection by Dr Chang. Patient is a poor historian but he reports his abdominal pain is improved and overall he has no complaints. I have reviewed his home meds and reviewed op report. IS is being used and overall RN has no concerns. Subjective/Events-last exam Patient is up ambulating great deal today. He is very cheerful and denies having any pain. He has not had any further emesis is on clear liquids and has not had a bowel movement yet Objective Exam Vital Signs Vital Signs Date Time Temp Pulse Resp B/P (MAP) Pulse Ox O2 Delivery O2 Flow Rate FiO2 02/04/20 12:00 36.8 69 20 138/79 (98) 93 Room Air 02/03/20 12:00 0.00 0.00 Capillary Refill : Less Than 3 Seconds General Appearance: No Apparent Distress, WD/WN HEENT: Normal ENT Inspection Respiratory: Lungs Clear, Normal Breath Sounds, No Accessory Muscle Use, No Respiratory Distress Cardiovascular: Regular Rate, Rhythm, No Gallop, No Murmur Gastrointestinal: Soft, Distended, Tenderness Extremity: No Pedal Edema Results/Procedures Lab Patient resulted labs reviewed. Assessment/Plan Assessment and Plan Assess & Plan/Chief Complaint s/p cecal mass resection POD # per Dr Chang uncomplicated-doing well probable discharge in the a.m. HTN HLP Mentally challenged? CRI Mental illness DVT PPx Clinical Quality Measures DVT/VTE Risk/Contraindication: Risk Factor Score Per Nursin RFS Level Per Nursing on Admit: 4+=Very High ARABELLA LAM MD Feb 04, 2020 12:37
[2020-02-05 08:00] VITALS: BP 151/79
[2020-02-05] MEDS: LATANOPROST 0.005% (XALATAN) OPHTH SOLN 2.5 ML OU SCH (08:13)
[2020-02-05] MEDS: amLODIPine 5 MG (NORVASC) TAB PO SCH (08:14)
[2020-02-05] MEDS: CARVEDILOL 12.5 MG (COREG) TABLET PO SCH (08:14)
[2020-02-05] MEDS: hydrOXYzine (VISTARIL/ATARAX) 25 MG capsule/tablet PO SCH ×2 (08:14→14:14)
[2020-02-05] MEDS: risperiDONE 0.25 MG (RisperDAL) TAB PO SCH (08:14)
--- NOTE | 2020-02-05 11:34 | Progress Note ---
Subjective Subjective/Events-last exam Patient doing well today. BM this AM. Pass Flatus. Desires to go home. Review of Systems Pulmonary: No Dyspnea Cardiovascular: No: Palpitations Gastrointestinal: No: Nausea, Vomiting, Abdominal Pain, Diarrhea, Constipation Neurological: No: Weakness, Incoordination Objective Exam Last Set of Vital Signs Vital Signs Date Time Temp Pulse Resp B/P (MAP) Pulse Ox O2 Delivery O2 Flow Rate FiO2 02/05/20 08:00 95 Room Air 02/05/20 08:00 36.9 74 20 151/79 (103) 02/03/20 12:00 0.00 0.00 Capillary Refill : Less Than 3 Seconds I&O Intake and Output 02/05/20 00:00 Intake Total 4418 ml Balance 4418 ml Intake Oral 2418 ml IV Total 2000 ml # Voids 11 General: Alert, Oriented X3, Cooperative, No Acute Distress Lungs: Clear to Auscultation, Normal Air Movement Heart: Regular Rate, No Murmurs Abdomen: Normal Bowel Sounds, Soft, No Tenderness, Other (incision C/D/I) Results/Procedures Lab Microbiology 02/01/20 MRSA Screen - Final, Complete MRSA not isolated Assessment/Plan Assessment/Plan (1) Cecum mass Status: Acute Assessment & Plan: 02/04: POD #4, passing flatus and small BM this AM, Ok for discharge from a medical standpoint, [facility] (2) Hypertension Status: Chronic Qualifiers: Qualified Codes: I10 - Essential (primary) hypertension (3) Hyperlipemia Status: Chronic Qualifiers: Qualified Codes: E78.2 - Mixed hyperlipidemia Clinical Quality Measures DVT/VTE Risk/Contraindication: Risk Factor Score Per Nursin RFS Level Per Nursing on Admit: 4+=Very High RAYSHAWN RICHARD MD Feb 05, 2020 11:34
--- NOTE | 2020-02-05 11:46 | Progress Note - Surgery ---
Subjective Date Seen by a Provider: Feb 05, 2020 Time Seen by a Provider: 11:42 Subjective/Events-last exam feeling well. + bowel function. pain controlled. No issues. Denies n/v fever sweats chills shortness of breath or chest pain. Objective Exam Vital Signs Date Time Temp Pulse Resp B/P (MAP) Pulse Ox O2 Delivery O2 Flow Rate FiO2 02/05/20 08:00 95 Room Air 02/05/20 08:00 36.9 74 20 151/79 (103) 94 Room Air 02/05/20 07:19 Room Air 02/04/20 23:55 36.9 67 14 132/76 (94) 92 Room Air 02/04/20 20:10 Room Air 02/04/20 20:00 37.1 75 18 159/87 (111) 94 Room Air 02/04/20 16:00 36.8 69 20 146/82 (103) 95 Room Air 02/04/20 12:00 36.8 69 20 138/79 (98) 93 Room Air I & O 02/05/20 07:00 Intake Total 4318 ml Balance 4318 ml Capillary Refill : Less Than 3 Seconds General Appearance: No Apparent Distress, WD/WN HEENT: Normal ENT Inspection Neck: Normal Inspection, Non Tender Respiratory: Chest Non Tender, No Accessory Muscle Use, No Respiratory Distress Cardiovascular: Regular Rate, Rhythm Gastrointestinal: non tender, soft, other (incisions c/d/i no erythema) Extremity: No Pedal Edema Neurologic/Psychiatric: Alert, Oriented x3 Skin: Normal Color, Warm/Dry Results Lab Microbiology 02/01/20 MRSA Screen - Final, Complete MRSA not isolated Assessment/Plan Assessment/Plan Assessment/Plan S/P right colon resection hypomagnesemia - resolved advance diet as tolerates okay to discharge home today Clinical Quality Measures DVT/VTE Risk/Contraindication: Risk Factor Score Per Nursin RFS Level Per Nursing on Admit: 4+=Very High SANTI HERNÁNDEZ DO Feb 05, 2020 11:46
--- NOTE | 2020-02-05 11:54 | NUR ---
SPOKE WITH PT CAREGIVER AND NOTIFIED HER OF PLANS TO DISCHARGE TODAY.
[2020-02-05] MEDS: ENOXAPARIN 40 MG/0.4 ML (LOVENOX) SYR SC SCH (12:00)
[2020-02-05] MEDS ORDERED: HYDR-83 PO (12:09)
--- NOTE | 2020-02-05 12:11 | Discharge Inst-Simple/Standard ---
Discharge Inst-Standard Discharge Medications New, Converted or Re-Newed RX: RX on Chart Patient Instructions/Follow Up Plan of Care/Instructions/FU: 2 weeks Charlene Activity as Tolerated: No Discharge Diet: Regular Diet Other Inst to Patient Follow up Appt: Make appointment for 2 week. Instructions: No lifting greater than 10 pounds. No strenuous activity. May shower in 24 hours, no tub bath or soaking. Use incentive spirometer at home as directed. No Smoking Skin/Wound Care: Keep incisions clean and dry. Symptoms to Report: Appetite Changes, Extremity Discoloration, Numbness/Tingling, Swelling Increased, Bleeding Excessive, Eyesight Changes, Pain Increased, Urine Color Change, Constipation(Persistent), Fever over 101 degree F, Pain/Pressure in chest, Urinating Difficulty, Cough Up/Vomit Blood, Heart Beat Irreg/Pounding, Pain/Pressure in jaw, Vaginal Bleeding Increase, Cramps in feet or legs, Lightheadedness, Pain/Pressure in shoulder, Diarrhea(Persistent), Memory Changes Suddenly, Questions/Concerns, Weight gain consecutive days, Dizziness/Fainting, Nausea/Vomiting, Shortness of Breath, Weight gain over 2 pounds If questions or concerns contact your physician Or seek help at emergency department. SANTI HERNÁNDEZ DO Feb 05, 2020 12:11
--- NOTE | 2020-02-05 13:55 | NUR ---
THIS RN SPOKE WITH PT CAREGIVER, NEGAR. PT TOLERATED DYS 2 DIET AND IS REQUESTING TO LEAVE. DISCHARGE INSTRUCTIONS WERE GONE OVER AND SHE WAS NOTIFIED OF F/U APPTS.
[2020-02-05 14:16] VITALS: BP 151/79
--- NOTE | 2020-02-06 10:13 | Physician Query Clarification ---
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 Question: Do you agree with the pathology report findings of intramucosal adenocarcinoma of the cecum? Please document a response in Progress Notes or Discharge Summary. 1. Agree with pathological diagnosis of intramucosal adenocarcinoma of the cecum. 2. No - Do not agree with pathology findings of intramucosal adenocarcinoma of the cecum. 3. Other, with explanation of the clinical findings. 4. Clinically undetermined, no explanation for the clinical findings. Is is appropriate for a provider to add additional documentation (addenda) to the record to explain the evaluation & care up to 30 days post-discharge. See [facility] and Patient Record Guidelines below. The [facility] Chapter Record of Care, Standard; RC.01.03.01EP 1: "The hospital has a written policy that required timely entry of information into the medical record." According to [facility] Patient Record Guidelines, ARTICLE XXI. CORRECTIONS AND ADDENDA, Modifications (addenda amendments, corrections and retractions) should be made timely and no later than regulatory requirements for record completion (i.e. 30 days post discharge). Official coding guidelines require coders to query the physician for agreement with pathology findings that occur during the encounter. Coders are not allowed to pull information directly from the path reports. PHYSICIAN RESPONSE Pathology Report Findings: Yes,agree w/path dx as documented Please remember a lack of response to the above will prompt a phone page by [facility]/Coding staff. In responding to this query, please exercise your independent professional judgment. The purpose of this communication is to more accurately reflect the complexity of your patients condition. The fact that a question is asked does not imply that any particular answer is desired or expected. Thank you for your timely response to this clarification. Requestors name: Irina THIS PHYSICIAN QUERY FORM IS A PERMANENT PART OF THE MEDICAL RECORD IRINA BRAUN Feb 06, 2020 10:13 SANTI HERNÁNDEZ DO Feb 12, 2020 11:44
== END 2020-02-05 14:16 | disposition home or self-care (01) | DRG 330 ==
LOC: 4TH 02-01 06:42 → SURG 02-01 06:43 → 4TH 02-01 11:40
PROVIDERS: ADMIT Surgery; ATTEND Surgery
PROC: 0DTF0ZZ Resection of Right Large Intestine, Open Approach (ICD-10-PCS; principal; 2020-02-01 08:54)
DX: C18.0 Malignant neoplasm of cecum (principal); E87.1 Hypo-osmolality and hyponatremia; E83.42 Hypomagnesemia; I12.9 Hypertensive chronic kidney disease with stage 1 through stage 4 chronic kidney disease, or unspecified chronic kidney disease; N18.9 Chronic kidney disease, unspecified; F79 Unspecified intellectual disabilities; E78.5 Hyperlipidemia, unspecified; F41.9 Anxiety disorder, unspecified; Z87.891 Personal history of nicotine dependence
CPT/HCPCS: 36415; 80048; 80053; 83735; 85025; 85027; 86850; 86900; 86901; 87081; 88309; 88341; 88342; 94664; 94760

== ENCOUNTER → 2020-02-29 | Outpatient (CLI) | payer MEDICARE, MEDICAID ==
[~2020-02-29] MED LIST changes: +CATHETER FLUSH 10 ML SYR IV PRN; +HOLD METFORMIN - RECEIVED CONTRAST 20 ML VIAL IV SCH; +HYDR-83 PO; +IOHEXOL 350 MG/ML 100 ML (OMNIPAQUE 350) VIAL IV ONE
--- NOTE | 2020-02-29 14:17 | Diagnostic Imaging Report ---
PROCEDURE: CT chest, abdomen, and pelvis with contrast. TECHNIQUE: Multiple contiguous axial images were obtained through the chest, abdomen, and pelvis after the administration of intravenous contrast. Auto Exposure Controls were utilized during the CT exam to meet ALARA standards for radiation dose reduction. INDICATION: Colon cancer. COMPARISON: None. FINDINGS: CT CHEST: Lung patton are clear. There is no focal consolidation, large effusion, nor pneumothorax. A few scattered calcified granuloma are noted. No suspicious pulmonary nodules or masses are identified. Cardiomediastinal structures show normal heart size. There is no large pericardial effusion. There is mild calcified coronary atherosclerosis, primarily involving the left main and circumflex. Few small mediastinal lymph nodes are noted. No pathologically enlarged or morphologically abnormal adenopathy is seen within the mediastinum, ez, nor axilla. Osseous structures show no acute abnormalities. No lytic or blastic bony lesions are seen. CT ABDOMEN: There is abnormal stranding of the pericecal fat. There is somewhat thickened appearance to the cecal wall. Discrete mass is difficult to assess on CT. Small bowel loops are nondistended. There are a few scattered colonic diverticula, but no CT evidence of acute diverticulitis. The liver, kidneys, adrenal glands, spleen, and pancreas have a normal CT appearance. There is no loculated fluid collection, free fluid, nor free air within the abdomen. No abnormal mesenteric adenopathy is seen. There are a few prominent-appearing, yet subcentimeter central mesenteric lymph nodes. There is also mild stranding of the central mesenteric fat. Mild scattered calcified aortic atherosclerosis is noted. Osseous structures show no acute abnormalities. CT PELVIS: Urinary bladder is minimally distended, but is otherwise grossly unremarkable. There is no loculated fluid collection, free fluid, nor free air within the pelvis. No abnormal lymph nodes are identified. Osseous structures show no acute abnormalities. IMPRESSION: 1. Abnormal stranding of the pericecal fat with thickened appearance to the underlying cecal wall. Correlation with patient's known colonic malignancy is advised. 2. Few slightly prominent-appearing mesenteric lymph nodes. Given the presence of associated mild stranding of the central mesenteric fat, findings may be on the basis of underlying mesenteric adenitis/panniculitis. Metastatic adenopathy is not entirely excluded based on this exam alone. 3. Colonic diverticulosis, but no CT evidence of acute diverticulitis. 4. No evidence of metastatic or malignant disease within the chest. Dictated by: Dictated on workstation # [id number]
== END ==
LOC: RAD 13:09
PROVIDERS: ATTEND Internal Medicine Hematology & Oncology
DX: C18.0 Malignant neoplasm of cecum (principal); K57.90 Diverticulosis of intestine, part unspecified, without perforation or abscess without bleeding
CPT/HCPCS: 71260; 74177

== ENCOUNTER 2020-05-23 12:48 | Outpatient (RCR) | payer MEDICARE, MEDICAID ==
[2020-03-05 14:47] LABS: BASOPHILS % (AUTO) 0 % (0-10); EOSINOPHILS # (AUTO) 0.1 10^3/uL (0.0-0.3); EOSINOPHILS % (AUTO) 2 % (0-10); HEMATOCRIT 43 % (40-54); HEMOGLOBIN 14.4 G/DL (13.3-17.7); LYMPHOCYTES # (AUTO) 1.1 X 10^3 (1.0-4.0); LYMPHOCYTES % (AUTO) 20 % (12-44); MEAN CORPUSCULAR HEMOGLOBIN 27 PG (25-34); MEAN CORPUSCULAR HGB CONC 33 G/DL (32-36); MEAN CORPUSCULAR VOLUME 81 FL (80-99); MEAN PLATELET VOLUME 10.1 FL (7.4-10.4); MONOCYTES # (AUTO) 0.4 X 10^3 (0.0-1.0); MONOCYTES % (AUTO) 8 % (0-12); NEUTROPHILS # (AUTO) 3.9 X 10^3 (1.8-7.8); NEUTROPHILS % (AUTO) 71 % (42-75); PLATELET COUNT 140 10^3/uL (130-400); RED CELL DISTRIBUTION WIDTH 14.4 % (10.0-14.5); WHITE BLOOD COUNT 5.4 10^3/uL (4.3-11.0)
[2020-03-05 15:06] LABS: ALBUMIN 4.1 GM/DL (3.2-4.5); BILIRUBIN,TOTAL 0.6 MG/DL (0.1-1.0); CALCIUM 8.9 MG/DL (8.5-10.1); CREATININE SERUM 1.43 MG/DL (0.60-1.30); POTASSIUM 4.5 MMOL/L (3.6-5.0)
[~2020-05-23 12:48] MED LIST changes: -HOLD METFORMIN - RECEIVED CONTRAST 20 ML VIAL IV SCH; -IOHEXOL 350 MG/ML 100 ML (OMNIPAQUE 350) VIAL IV ONE; -NS 100 ML (IVPB) BAG IV ONE
[2020-05-23 13:05] LABS: BASOPHILS % (AUTO) 0 % (0-10); EOSINOPHILS # (AUTO) 0.1 10^3/uL (0.0-0.3); EOSINOPHILS % (AUTO) 2 % (0-10); HEMATOCRIT 44 % (40-54); LYMPHOCYTES # (AUTO) 1.2 X 10^3 (1.0-4.0); LYMPHOCYTES % (AUTO) 19 % (12-44); MEAN CORPUSCULAR HEMOGLOBIN 28 PG (25-34); MEAN CORPUSCULAR HGB CONC 34 G/DL (32-36); MEAN CORPUSCULAR VOLUME 81 FL (80-99); MEAN PLATELET VOLUME 10.3 FL (7.4-10.4); MONOCYTES # (AUTO) 0.6 X 10^3 (0.0-1.0); MONOCYTES % (AUTO) 9 % (0-12); NEUTROPHILS # (AUTO) 4.5 X 10^3 (1.8-7.8); NEUTROPHILS % (AUTO) 70 % (42-75); PLATELET COUNT 175 10^3/uL (130-400); RED CELL DISTRIBUTION WIDTH 13.4 % (10.0-14.5); WHITE BLOOD COUNT 6.4 10^3/uL (4.3-11.0)
[2020-05-23 13:23] LABS: ALBUMIN 4.4 GM/DL (3.2-4.5); BILIRUBIN,TOTAL 0.7 MG/DL (0.1-1.0); CALCIUM 9.2 MG/DL (8.5-10.1); CREATININE SERUM 1.55 MG/DL (0.60-1.30); POTASSIUM 4.7 MMOL/L (3.6-5.0); TOTAL PROTEIN 7.6 GM/DL (6.4-8.2)
== END 2020-05-26 | disposition home or self-care (01) ==
LOC: ONC 12:48
PROVIDERS: ATTEND Internal Medicine Hematology & Oncology
DX: C18.9 Malignant neoplasm of colon, unspecified (principal); I10 Essential (primary) hypertension
CPT/HCPCS: 80053; 82378; 85025; 99213; 99214

== ENCOUNTER → 2020-05-23 | Outpatient (CLI) | payer MEDICARE, MEDICAID ==
[~2020-05-23] MED LIST changes: -CATHETER FLUSH 10 ML SYR IV PRN; +HYDR-3812 PO; -HYDR-83 PO; +NS 100 ML (IVPB) BAG IV ONE
--- NOTE | 2020-05-23 17:44 | Diagnostic Imaging Report ---
PROCEDURE: CT abdomen and pelvis with contrast. TECHNIQUE: Multiple contiguous axial images were obtained through the abdomen and pelvis after administration of intravenous contrast. Auto Exposure Controls were utilized during the CT exam to meet ALARA standards for radiation dose reduction. INDICATION: Colon cancer. FINDINGS: The previous CT chest, abdomen and pelvis exam of 02/29/2020 noted postsurgical changes consistent with a recent right hemicolectomy. Specifically, there was abnormal stranding of the fat about the remaining portion of the ascending colon. There was also some thickening of the wall in this area. On this exam, there is only a very small amount of residual stranding of the fat in this area and the wall does not appear nearly as thickened as on the prior study. Consequently, I suspect the findings of the previous exam were a sequela of the patient's surgical procedure. There is extensive diverticulosis of the sigmoid and descending colon. There is no sign of acute diverticulitis. There is no pelvic mass or free fluid collection noted. The urinary bladder and prostate gland are grossly unremarkable. On the initial images, there is a focal 1 cm area of enhancement in the right lobe of the liver with mild adjacent enhancement of the liver parenchyma medial to this lesion. That finding was difficult to visualize on the prior exam, but there did appear to be a small area of enhancement in this region on the prior study. This area of enhancement is not evident on the delayed series and this may well represent a hemangioma as opposed to a metastatic focus. MRI will be recommended for further evaluation. The liver is otherwise unremarkable. The spleen, pancreas, adrenals, gallbladder, kidneys, aorta and inferior vena cava show no sign of an acute abnormality. The stomach is not well distended and difficult to assess. The small hiatal hernia seen previously is again evident and no different. The lung bases are clear. The bone windows show no evidence for a fracture or for a destructive lesion. IMPRESSION: 1. The appearance of the abdomen and pelvis has improved since the prior exam as there is much less stranding of the mesenteric fat about the remaining portion of the ascending colon. The colon wall thickening in this area seen on the prior exam has also essentially resolved. 2. The focal area of enhancement in the right lobe of the liver is of uncertain etiology but may well represent a hemangioma as opposed to a metastatic focus. MRI will be recommended for further study. 3. There is no acute abnormality of the abdomen or pelvis noted. 4. There is extensive diverticulosis of the sigmoid and descending colon, but there is no sign of acute diverticulitis. Dictated by: Dictated on workstation # [id number]
== END ==
LOC: RAD 13:15
PROVIDERS: ATTEND Internal Medicine Hematology & Oncology
DX: C18.0 Malignant neoplasm of cecum (principal); K57.30 Diverticulosis of large intestine without perforation or abscess without bleeding
CPT/HCPCS: 74177

== ENCOUNTER 2020-06-05 12:59 | Outpatient (RCR) | payer MEDICARE, MEDICAID ==
[~2020-06-05 12:59] MED LIST changes: +ACHD5005 PO; +AMLO-250 PO; -AMLO5TAB9 PO; -HYDR-3812 PO
== END 2020-09-03 | disposition home or self-care (01) ==
LOC: ONC 12:59
PROVIDERS: ATTEND Internal Medicine Hematology & Oncology
DX: C18.0 Malignant neoplasm of cecum (principal); I10 Essential (primary) hypertension; F70 Mild intellectual disabilities; R73.9 Hyperglycemia, unspecified
CPT/HCPCS: 99213

== ENCOUNTER → 2020-12-13 | Outpatient (CLI) | payer MEDICARE, MEDICAID ==
[~2020-12-13] MED LIST changes: -LISI40TA PO; +LISI40TA9 PO; -RISP0.5T3 PO; +RISP0.5T65 PO
[2020-12-13 13:00] LABS: BASOPHILS % (AUTO) 0 % (0-10); EOSINOPHILS # (AUTO) 0.1 10^3/uL (0.0-0.3); EOSINOPHILS % (AUTO) 2 % (0-10); HEMATOCRIT 44 % (40-54); HEMOGLOBIN 14.8 g/dL (13.3-17.7); LYMPHOCYTES % (AUTO) 16 % (12-44); MEAN CORPUSCULAR HEMOGLOBIN 28 pg (25-34); MEAN CORPUSCULAR HGB CONC 34 g/dL (32-36); MEAN CORPUSCULAR VOLUME 82 fL (80-99); MEAN PLATELET VOLUME 9.7 fL (9.0-12.2); MONOCYTES # (AUTO) 0.5 10^3/uL (0.0-1.0); MONOCYTES % (AUTO) 8 % (0-12); NEUTROPHILS # (AUTO) 4.4 10^3/uL (1.8-7.8); NEUTROPHILS % (AUTO) 73 % (42-75); PLATELET COUNT 181 10^3/uL (130-400); WHITE BLOOD COUNT 6.1 10^3/uL (4.3-11.0)
[2020-12-13 13:22] LABS: ALBUMIN 4.2 GM/DL (3.2-4.5); BILIRUBIN,TOTAL 0.7 MG/DL (0.1-1.0); CALCIUM 9.2 MG/DL (8.5-10.1); CREATININE SERUM 1.6 MG/DL (0.60-1.30); POTASSIUM 4.2 MMOL/L (3.6-5.0); TOTAL PROTEIN 7.5 GM/DL (6.4-8.2)
== END ==
LOC: EDSTATUS 09-04 08:30 → ONC 12:52
PROVIDERS: ATTEND Internal Medicine Hematology & Oncology
DX: C18.9 Malignant neoplasm of colon, unspecified (principal); F70 Mild intellectual disabilities; I10 Essential (primary) hypertension; R73.9 Hyperglycemia, unspecified
CPT/HCPCS: 80053; 82378; 85025; G0463; 99213

== ENCOUNTER 2021-02-04 05:38 | Outpatient (CLI) | payer MEDICARE, MEDICAID ==
[~2021-02-04] VITALS: Ht 172.7 cm; Wt 87.5 kg
[2021-02-04] MEDS ORDERED: IBUP-2473 PO (17:21)
[2021-02-04] MEDS ORDERED: ERYT-118 PO (17:21)
[2021-02-04] MEDS ORDERED: NEOM500T12 PO (17:21)
[2021-02-04] MEDS ORDERED: DIPH25CA48 PO (17:21)
== END 2021-02-05 14:26 | disposition home or self-care (01) ==
LOC: PREOP 05:38
PROVIDERS: ATTEND Surgery
DX: Z01.818 Encounter for other preprocedural examination (principal)

== ENCOUNTER → 2021-06-12 | Outpatient (CLI) | payer MEDICARE, MEDICAID ==
[~2021-06-12] MED LIST changes: +DIPH25CA48 PO; +ERYT-118 PO; +IBUP-2473 PO; +NEOM500T12 PO
[2021-06-12 13:16] LABS: BASOPHILS % (AUTO) 0 % (0-10); EOSINOPHILS # (AUTO) 0.1 10^3/uL (0.0-0.3); EOSINOPHILS % (AUTO) 2 % (0-10); HEMATOCRIT 45 % (40-54); HEMOGLOBIN 15.1 g/dL (13.3-17.7); LYMPHOCYTES % (AUTO) 16 % (12-44); MEAN CORPUSCULAR HEMOGLOBIN 27 pg (25-34); MEAN CORPUSCULAR HGB CONC 34 g/dL (32-36); MEAN CORPUSCULAR VOLUME 81 fL (80-99); MEAN PLATELET VOLUME 10.1 fL (9.0-12.2); MONOCYTES # (AUTO) 0.6 10^3/uL (0.0-1.0); MONOCYTES % (AUTO) 9 % (0-12); NEUTROPHILS # (AUTO) 4.5 10^3/uL (1.8-7.8); NEUTROPHILS % (AUTO) 73 % (42-75); PLATELET COUNT 175 10^3/uL (130-400); WHITE BLOOD COUNT 6.1 10^3/uL (4.3-11.0)
[2021-06-12 13:38] LABS: ALBUMIN 4.3 GM/DL (3.2-4.5); BILIRUBIN,TOTAL 0.7 MG/DL (0.1-1.0); CALCIUM 9.8 MG/DL (8.5-10.1); CREATININE SERUM 1.47 MG/DL (0.60-1.30); POTASSIUM 4.4 MMOL/L (3.6-5.0); TOTAL PROTEIN 8.2 GM/DL (6.4-8.2)
== END ==
LOC: ONC 13:10
PROVIDERS: ATTEND Internal Medicine Hematology & Oncology
DX: C18.9 Malignant neoplasm of colon, unspecified (principal); F70 Mild intellectual disabilities; I10 Essential (primary) hypertension; R73.9 Hyperglycemia, unspecified
CPT/HCPCS: 80053; 82378; 85025; G0463; 99213

== ENCOUNTER → 2021-12-16 | Outpatient (CLI) | payer MEDICARE, MEDICAID ==
[2021-12-16 15:13] LABS: BASOPHILS % (AUTO) 0 % (0-10); EOSINOPHILS # (AUTO) 0.1 10^3/uL (0.0-0.3); EOSINOPHILS % (AUTO) 2 % (0-10); HEMATOCRIT 43 % (40-54); HEMOGLOBIN 14.8 g/dL (13.3-17.7); LYMPHOCYTES % (AUTO) 19 % (12-44); MEAN CORPUSCULAR HEMOGLOBIN 28 pg (25-34); MEAN CORPUSCULAR HGB CONC 35 g/dL (32-36); MEAN CORPUSCULAR VOLUME 79 fL (80-99); MEAN PLATELET VOLUME 10.1 fL (9.0-12.2); MONOCYTES # (AUTO) 0.7 X 10^3 (0.0-1.0); MONOCYTES % (AUTO) 12 % (0-12); NEUTROPHILS # (AUTO) 3.5 X 10^3 (1.8-7.8); NEUTROPHILS % (AUTO) 66 % (42-75); PLATELET COUNT 167 10^3/uL (130-400); WHITE BLOOD COUNT 5.3 10^3/uL (4.3-11.0)
[2021-12-16 15:33] LABS: ALBUMIN 4.5 GM/DL (3.2-4.5); CALCIUM 9.5 MG/DL (8.5-10.1); CREATININE SERUM 1.69 MG/DL (0.60-1.30); TOTAL PROTEIN 7.9 GM/DL (6.4-8.2)
== END ==
LOC: ONC 14:59
PROVIDERS: ATTEND Internal Medicine Hematology & Oncology
DX: C18.9 Malignant neoplasm of colon, unspecified (principal); F70 Mild intellectual disabilities; I10 Essential (primary) hypertension
CPT/HCPCS: 80053; 82378; 85025; G0463; 36415; 99213

== ENCOUNTER 2022-04-21 05:35 | Outpatient (CLI) | payer MEDICARE, MEDICAID ==
[~2022-04-21] VITALS: Ht 180 cm; Wt 87.0 kg
[2022-04-24] MEDS ORDERED: LOSA25TA41 PO (09:38)
[2022-04-24] MEDS ORDERED: VORT10TA PO (09:38)
== END 2022-04-24 09:40 | disposition home or self-care (01) ==
LOC: PREOP 05:35
PROVIDERS: ATTEND Specialist
DX: Z01.818 Encounter for other preprocedural examination (principal)

== ENCOUNTER 2022-05-01 06:37 | Day surgery (SDC) | payer MEDICARE, MEDICAID ==
[~2022-05-01] VITALS: Ht 180 cm; Wt 87.0 kg
[~2022-05-01 06:37] MED LIST changes: +LOSA25TA41 PO; +VORT10TA PO
[2022-05-01] MEDS ORDERED: LIDOCAINE PF 1% 2 ML VIAL IR PRN (06:45)
[2022-05-01] MEDS ORDERED: MOXIFLOXACIN OPHTH SOLN 5 MG/ML 0.3 ML SYRINGE OP ONE (06:45)
[2022-05-01] MEDS ORDERED: TIMOLOL MALEATE 0.5% 5 ML (TIMOPTIC) BTL OU PRN (06:45)
[2022-05-01] MEDS ORDERED: POVIDONE (BETADINE) OPHTH SOLN 5% 30 ML OP ONE (06:45)
[2022-05-01] MEDS: TETRACAINE 0.5% OPHTH SOLN 4 ML BTL (SINGLE DOSE ONLY) OU PRN ×4 (06:55→07:11)
[2022-05-01] MEDS: TROPICAMIDE 1% OPH SOLN (MYDRIACYL) 15 ML BTL OP SCH ×3 (07:01→07:11)
[2022-05-01] MEDS: PHENYLEPHRINE 10% OPHTH (NEO-SYN) 5 ML BTL OU SCH ×3 (07:01→07:11)
[2022-05-01 07:02] VITALS: BP 160/85
[2022-05-01] MEDS ORDERED: MIDAZOLAM 2 MG/2 ML (VERSED) VIAL ONE (07:10)
--- NOTE | 2022-05-01 07:27 | Ophthalmologist Pre-Op Note ---
Pre-Operative Progress Note H&P Reviewed The H&P was reviewed, patient examined and no changes noted. Date H&P Reviewed: May 01, 2022 Time H&P Reviewed: 07:27 Pre-Op Dx Cataract, Right Eye NATALEE FERNANDO MD May 01, 2022 07:27
--- NOTE | 2022-05-01 07:47 | Ophthalmology Operative Report ---
Cataract, Miotic Pupil PREOPERATIVE DIAGNOSIS: 1. Cataract Right Eye 2. Miotic Pupil POSTOPERATIVE DIAGNOSIS: 1. Cataract Right Eye 2. Miotic Pupil PROCEDURE: 1. Cataract removal and placement of posterior chamber implant, right eye 2. Pupillary expansion with malyugin ring SURGEON: Garry Fernando ANESTHESIA: Topical with sedation COMPLICATIONS: None ESTIMATED BLOOD LOSS: Minimal DESCRIPTION OF PROCEDURE: After proper informed consent was obtained, the patient, a 66 male, was taken to the Operating Room and the right eye was anesthetized with Tetracaine. The eye was then prepped and draped in the usual manner. A wire lid speculum was placed. A paracentesis was made at the left hand position. Preservative free lidocaine was injected into anterior chamber followed by viscoelastic. A clear corneal incision was made in the temporal position. The malyugin ring was injected into the anterior chamber and the pupil was dilated. A capsulorrhexis was preformed and the central nuclear and cortical material were removed. The posterior capsule was polished and Yevgeniy 20.5 [id number] IOL was placed into the capsular bag. The malyugin ring was removed. The residual viscoelastic was aspirated and the balanced saline solution was injected into the anterior chamber. Moxifloxacin was injected into the anterior chamber. The wound was checked and found to be water tight. The patient tolerated the procedure well without complications. GARRY FERNANDO MD May 01, 2022 07:47
[2022-05-01 07:49] VITALS: BP 150/94
[2022-05-01] MEDS ORDERED: acetaZOLAMIDE ER 500 MG CAP (DIAMOX SEQUELS) PO ONE (09:15)
--- NOTE | 2022-05-01 13:41 | Anesthesia-General Post-Op ---
MAC Patient Condition Mental Status/LOC: Same as Preop Cardiovascular: Satisfactory Nausea/Vomiting: Absent Respiratory: Satisfactory Pain: Controlled Complications: Absent Post Op Complications Complications None Follow Up Care/Instructions Patient Instructions None needed. Anesthesiology Discharge Order Discharge Order Patient is doing well, no complaints, stable vital signs, no apparent adverse anesthesia problems. No complications reported per nursing. SARAY JUAREZ CRNA May 01, 2022 13:41
== END 2022-05-01 07:56 | disposition home or self-care (01) ==
LOC: SDC 06:37
PROVIDERS: ATTEND Specialist
DX: H25.9 Unspecified age-related cataract (principal); H57.03 Miosis
CPT/HCPCS: 66982; V2632

== ENCOUNTER → 2022-07-08 | Outpatient (CLI) | payer MEDICARE, MEDICAID ==
[2022-07-08 14:10] LABS: BASOPHILS % (AUTO) 0 % (0-10); EOSINOPHILS # (AUTO) 0.1 10^3/uL (0.0-0.3); EOSINOPHILS % (AUTO) 2 % (0-10); HEMATOCRIT 46 % (40-54); HEMOGLOBIN 15.5 g/dL (13.3-17.7); LYMPHOCYTES # (AUTO) 1.3 10^3/uL (1.0-4.0); LYMPHOCYTES % (AUTO) 24 % (12-44); MEAN CORPUSCULAR HEMOGLOBIN 27 pg (25-34); MEAN CORPUSCULAR HGB CONC 34 g/dL (32-36); MEAN CORPUSCULAR VOLUME 82 fL (80-99); MEAN PLATELET VOLUME 9.8 fL (9.0-12.2); MONOCYTES # (AUTO) 0.7 10^3/uL (0.0-1.0); MONOCYTES % (AUTO) 12 % (0-12); NEUTROPHILS # (AUTO) 3.3 10^3/uL (1.8-7.8); NEUTROPHILS % (AUTO) 62 % (42-75); PLATELET COUNT 168 10^3/uL (130-400); WHITE BLOOD COUNT 5.4 10^3/uL (4.3-11.0)
[2022-07-08 14:30] LABS: ALBUMIN 4.4 GM/DL (3.2-4.5); BILIRUBIN,TOTAL 0.8 MG/DL (0.1-1.0); CALCIUM 9.4 MG/DL (8.5-10.1); CREATININE SERUM 1.36 MG/DL (0.60-1.30); POTASSIUM 4.7 MMOL/L (3.6-5.0); TOTAL PROTEIN 7.4 GM/DL (6.4-8.2)
== END ==
LOC: ONC 13:57
PROVIDERS: ATTEND Internal Medicine Hematology & Oncology
DX: C18.9 Malignant neoplasm of colon, unspecified (principal); I10 Essential (primary) hypertension; R73.9 Hyperglycemia, unspecified
CPT/HCPCS: 36415; 80053; 82378; 85025

== ENCOUNTER → 2022-08-12 | Outpatient (CLI) | payer MEDICARE, MEDICAID ==
[~2022-08-12] VITALS: Ht 172.7 cm; Wt 88.0 kg
[~2022-08-12] MED LIST changes: +METF-397 PO
== END | disposition home or self-care (01) ==
LOC: PREOP 06:19
PROVIDERS: ATTEND Surgery
DX: Z01.818 Encounter for other preprocedural examination (principal)

== ENCOUNTER 2022-08-25 08:06 | Day surgery (SDC) | payer MEDICARE, MEDICAID ==
[~2022-08-25] VITALS: Ht 172.7 cm; Wt 88.0 kg
[2022-08-25] MEDS ORDERED: LACTATED RINGERS 1,000 ML IV STA (08:16)
[2022-08-25 08:25] VITALS: BP 158/92
[2022-08-25] MEDS ORDERED: LACTATED RINGERS 1,000 ML IV ONE (08:55)
[2022-08-25] MEDS ORDERED: MIDAZOLAM 2 MG/2 ML (VERSED) VIAL ONE (09:31)
[2022-08-25] MEDS ORDERED: PROPOFOL INJECTION 50 ML IV ONE (09:31)
--- NOTE | 2022-08-25 09:54 | Anesthesia-General Post-Op ---
MAC Patient Condition Mental Status/LOC: Same as Preop Cardiovascular: Satisfactory Nausea/Vomiting: Absent Respiratory: Satisfactory Pain: Controlled Complications: Absent Post Op Complications Complications None Follow Up Care/Instructions Patient Instructions None needed. Anesthesiology Discharge Order Discharge Order Patient is doing well, no complaints, stable vital signs, no apparent adverse anesthesia problems. No complications reported per nursing. TOMAS LIND CRNA Aug 25, 2022 09:54
--- NOTE | 2022-08-25 09:59 | Discharge Inst-Simple/Standard ---
Discharge Inst-Standard Reconcile Patient Problems Problems Reviewed?: Yes Patient Instructions/Follow Up Plan of Care/Instructions/FU: Follow up 2 weeks Charlene Activity as Tolerated: Yes Discharge Diet: Regular Diet SANTI HERNÁNDEZ DO Aug 25, 2022 09:59
[2022-08-25 10:02] VITALS: BP 103/59
[2022-08-25 10:07] VITALS: BP 106/63
[2022-08-25 10:12] VITALS: BP 124/73
[2022-08-25 10:15] VITALS: BP 124/73
[2022-08-25 10:35] VITALS: BP 124/73
--- NOTE | 2022-08-25 15:36 | OPERATIVE REPORT ---
DATE OF SERVICE: 08/25/2022 PREOPERATIVE DIAGNOSIS: History of colon cancer. POSTOPERATIVE DIAGNOSIS: Colon polyps x2 and diverticulosis. PROCEDURE: Colonoscopy with hot biopsy polypectomy x2 and cold biopsy of the staple line. SURGEON: Santi Chang DO ANESTHESIA: Per CHERRY CUTTER. ESTIMATED BLOOD LOSS: None. COMPLICATIONS: None. INDICATIONS: The patient is a 66-year-old male with history of colon cancer. He understands risks and benefits of procedure and wished to proceed. Consent was signed in the chart. DESCRIPTION OF PROCEDURE: The patient was taken to endoscopy suite, placed in left lateral recumbent position. Timeout was performed. Digital rectal exam was performed. No palpable polyps, masses or ulcerations. Scope was inserted in the rectum and advanced all the way to the ileocolonic anastomosis. Two small polyps were present in this area, which hot biopsy polypectomies were performed. Staple line looked a little bit inflamed and so a cold biopsy was obtained. Scope was slowly retracted back. No polyps, masses or ulcerations within the remainder of the ascending, transverse, descending and sigmoid colon. In the sigmoid colon had some diverticulosis present. Scope was continuously retracted back in the rectum, where it was also retroflexed noting no other pathology. Scope was returned to its normal position, slowly withdrawn until completely removed. The patient tolerated the procedure well without any complications. He was taken to recovery room in stable condition. RECOMMENDATIONS: The patient should have a repeat colonoscopy in years 1, 3, and 5 after his resection. I will see him in two weeks to discuss pathology results. Further recommendations pending. Any problems before that be seen at that time. Job ID: [id number] DocumentID: [id number] Dictated Date: 08/25/2022 09:59:01 Gold Letterer Date: 08/25/2022 15:36:33 Dictated By: SANTI CHANG DO
== END 2022-08-25 10:35 | disposition home or self-care (01) ==
LOC: ENDO 08:06
PROVIDERS: ATTEND Surgery
DX: Z12.11 Encounter for screening for malignant neoplasm of colon (principal); D12.0 Benign neoplasm of cecum; K52.9 Noninfective gastroenteritis and colitis, unspecified; K57.30 Diverticulosis of large intestine without perforation or abscess without bleeding; E11.9 Type 2 diabetes mellitus without complications; Z85.038 Personal history of other malignant neoplasm of large intestine; Z79.84 Long term (current) use of oral hypoglycemic drugs
CPT/HCPCS: 82947

== ENCOUNTER → 2023-02-17 | Outpatient (CLI) | payer MEDICARE, MEDICAID ==
[~2023-02-17] MED LIST changes: +DIPH-1122 PO; -DIPH25CA48 PO
[2023-02-17 14:42] LABS: BASOPHILS % (AUTO) 0 % (0-10); EOSINOPHILS # (AUTO) 0.1 10^3/uL (0.0-0.3); EOSINOPHILS % (AUTO) 2 % (0-10); HEMATOCRIT 45 % (40-54); HEMOGLOBIN 15.3 g/dL (13.3-17.7); LYMPHOCYTES # (AUTO) 1.1 X 10^3 (1.0-4.0); LYMPHOCYTES % (AUTO) 21 % (12-44); MEAN CORPUSCULAR HEMOGLOBIN 28 pg (25-34); MEAN CORPUSCULAR HGB CONC 34 g/dL (32-36); MEAN CORPUSCULAR VOLUME 81 fL (80-99); MEAN PLATELET VOLUME 9.9 fL (9.0-12.2); MONOCYTES # (AUTO) 0.5 X 10^3 (0.0-1.0); MONOCYTES % (AUTO) 10 % (0-12); NEUTROPHILS # (AUTO) 3.4 X 10^3 (1.8-7.8); NEUTROPHILS % (AUTO) 66 % (42-75); PLATELET COUNT 137 10^3/uL (130-400); WHITE BLOOD COUNT 5.1 10^3/uL (4.3-11.0)
[2023-02-17 14:57] LABS: ALANINE AMINOTRANSFERASE 28 U/L (0-55); ALBUMIN 4.6 GM/DL (3.2-4.5); ALKALINE PHOSPHATASE 121 U/L (40-136); BILIRUBIN,TOTAL 0.8 MG/DL (0.1-1.0); BUN/CREATININE RATIO 11; CALCIUM 9.6 MG/DL (8.5-10.1); CARBON DIOXIDE 27 MMOL/L (21-32); CHLORIDE 105 MMOL/L (98-107); CREATININE SERUM 1.52 MG/DL (0.60-1.30); GFR ESTIMATED 50; GLUCOSE 171 MG/DL (70-105); POTASSIUM 4.2 MMOL/L (3.6-5.0); SODIUM 140 MMOL/L (135-145)
== END ==
LOC: ONC 14:01
PROVIDERS: ATTEND Internal Medicine Hematology & Oncology
DX: C18.9 Malignant neoplasm of colon, unspecified (principal); F79 Unspecified intellectual disabilities; R73.9 Hyperglycemia, unspecified; I10 Essential (primary) hypertension; K57.30 Diverticulosis of large intestine without perforation or abscess without bleeding
CPT/HCPCS: 36415; 80053; 82378; 85025

== ENCOUNTER → 2023-08-26 | Outpatient (CLI) | payer MEDICARE, MEDICAID ==
[2023-08-26 14:16] LABS: BASOPHILS % (AUTO) 0 % (0-10); EOSINOPHILS # (AUTO) 0.1 10^3/uL (0.0-0.3); EOSINOPHILS % (AUTO) 2 % (0-10); HEMATOCRIT 46 % (40-54); HEMOGLOBIN 15.2 g/dL (13.3-17.7); LYMPHOCYTES # (AUTO) 1.1 10^3/uL (1.0-4.0); LYMPHOCYTES % (AUTO) 21 % (12-44); MEAN CORPUSCULAR HEMOGLOBIN 28 pg (25-34); MEAN CORPUSCULAR HGB CONC 33 g/dL (32-36); MEAN CORPUSCULAR VOLUME 83 fL (80-99); MEAN PLATELET VOLUME 10.1 fL (9.0-12.2); MONOCYTES # (AUTO) 0.5 10^3/uL (0.0-1.0); MONOCYTES % (AUTO) 10 % (0-12); NEUTROPHILS # (AUTO) 3.7 10^3/uL (1.8-7.8); NEUTROPHILS % (AUTO) 68 % (42-75); PLATELET COUNT 152 10^3/uL (130-400); WHITE BLOOD COUNT 5.5 10^3/uL (4.3-11.0)
[2023-08-26 14:40] LABS: ALANINE AMINOTRANSFERASE 18 U/L (0-55); ALBUMIN 4.6 GM/DL (3.2-4.5); ALKALINE PHOSPHATASE 103 U/L (40-136); BILIRUBIN,TOTAL 0.9 MG/DL (0.1-1.0); BUN/CREATININE RATIO 7; CALCIUM 9.3 MG/DL (8.5-10.1); CARBON DIOXIDE 24 MMOL/L (21-32); CHLORIDE 103 MMOL/L (98-107); CREATININE SERUM 1.49 MG/DL (0.60-1.30); GFR ESTIMATED 51; GLUCOSE 152 MG/DL (70-105); POTASSIUM 4.4 MMOL/L (3.6-5.0); SODIUM 136 MMOL/L (135-145); TOTAL PROTEIN 7.4 GM/DL (6.4-8.2)
== END ==
LOC: ONC 14:00
PROVIDERS: ATTEND Internal Medicine Hematology & Oncology
DX: C18.9 Malignant neoplasm of colon, unspecified (principal); I10 Essential (primary) hypertension
CPT/HCPCS: 80053; 82378; 85025; G0463; 36415; 99214